=== PATIENT | female | born 1950 | race Caucasian/White ===

== ENCOUNTER 2018-03-28 09:53 | Outpatient (REF) | payer OTHER, SELFPAY ==
[2018-03-28 13:17] LABS: Anion Gap 8.1 mmol/L (3-11); BUN 13 mg/dL (7-18); CO2 30.9 mmol/L (21.0-32.0); Calcium 9.4 mg/dL (8.5-10.1); Chloride 102 mmol/L (98-107); Cholesterol 214 mg/dL (50-200); Glucose 91 mg/dL (70-100); HDL Cholesterol 54 mg/dL (40-60); LDL CHOLESTEROL 142 mg/dL (<100); Sodium 141 mmol/L (136-145); TSH (W/Ref FT4) 5.32 uIU/mL (0.358-3.74); Triglyceride 82 mg/dL (30-150)
[2018-03-28 13:48] LABS: FREE T4 1.07 ng/dL (0.76-1.46)
== END 2018-03-28 10:13 ==
LOC: NCHCN 09:53
PROVIDERS: PCP Family Medicine; Visit Provider Nurse Practitioner Family
DX: R03.0 Elevated blood-pressure reading, without diagnosis of hypertension (principal); E78.5 Hyperlipidemia, unspecified; E03.9 Hypothyroidism, unspecified
CPT/HCPCS: 80048; 80061; 83721; 84439; 84443

== ENCOUNTER 2018-04-16 01:27 | Outpatient (CLI) | payer OTHER, SELFPAY ==
--- NOTE | 2018-04-16 07:50 | DI.MAMMO_ITS ---
SYMPTOMS/DIAGNOSIS: SCREENING, Z12.31 MAMMOGRAMS: Mammograms were interpreted according to the usual protocol including computer analysis with CAD system, tomosynthesis and C view imaging. Comparison is with the prior examinations. No suspicious masses or microcalcifications are seen. There are surgical clips again seen in the left breast. The skin and axillae are unremarkable. IMPRESSION: No evidence for malignancy. Yearly mammography is recommended. Category 1. Breast density B. MQSA ASSESSMENT OF FINDINGS: Negative. Category 1. Patient will receive a letter notifying them of these results. BI-RADS category B. There are scattered areas of fibroglandular density.
== END 2018-04-16 01:47 ==
PROVIDERS: PCP Family Medicine; Visit Provider Nurse Practitioner Family
DX: Z12.31 Encounter for screening mammogram for malignant neoplasm of breast (principal)
CPT/HCPCS: 77063; 77067

== ENCOUNTER 2018-08-27 08:36 | Outpatient (REF) | payer OTHER, SELFPAY ==
[2018-08-27 12:42] LABS: Abs Immature Grans 0.02 k/cumm (0.0-0.09); Absolute Basophil Count 0.03 k/cumm (0.0-0.2); Absolute Lymphocyte Count 1.76 k/cumm (1.2-3.4); Absolute Monocyte Count 0.61 k/cumm (0.11-0.7); Absolute Neutrophil Count 2.71 k/cumm (1.2-6.7); Basophils % 0.6; Eosinophils % 3.8; HCT 41.7 % (36.0-46.0); Immature Grans % 0.4; Mean Corp. HGB Concentration 33.6 g/dL (32.0-36.0); Mean Corpuscular Hemoglobin 28.6 pg (27.0-33.0); Mean Corpuscular Volume 85.1 fL (80-95); Mean Platelet Volume 9.6 fL (8.0-11.0); Monocytes % 11.4; Neutrophils % 50.8; Platelet Count 250 x1000/uL (130-400); RBC Distribution Width 13.8 % (11.7-14.6); White Blood Cell Count 5.33 k/cumm (4.4-10.8)
[2018-08-27 13:19] LABS: TSH (W/Ref FT4) 4.96 uIU/mL (0.358-3.74)
[2018-08-27 13:45] LABS: FREE T4 0.97 ng/dL (0.76-1.46)
== END 2018-08-27 08:56 ==
LOC: NCHCN 08:36
PROVIDERS: PCP Family Medicine; Visit Provider Nurse Practitioner Family
DX: E03.9 Hypothyroidism, unspecified (principal)
CPT/HCPCS: 84439; 84443; 85025

== ENCOUNTER 2018-09-03 08:39 | Outpatient (REF) | payer OTHER, SELFPAY ==
[2018-09-04 09:56] LABS: Hepatitis C Ab w Rflx HCV PCR Negative (NEGAT)
== END 2018-09-03 08:59 ==
LOC: NCHCN 08:39
PROVIDERS: PCP Nurse Practitioner Family; Visit Provider Nurse Practitioner Family
DX: E78.5 Hyperlipidemia, unspecified (principal); F41.8 Other specified anxiety disorders; R53.83 Other fatigue; D32.9 Benign neoplasm of meninges, unspecified; E66.3 Overweight; Z11.59 Encounter for screening for other viral diseases
CPT/HCPCS: 86803

== ENCOUNTER 2018-12-01 09:41 | Outpatient (REF) | payer OTHER, SELFPAY ==
[2018-12-01 14:13] LABS: TSH (W/Ref FT4) 6.69 uIU/mL (0.36-3.74)
[2018-12-01 14:39] LABS: FREE T4 0.83 ng/dL (0.76-1.46)
== END 2018-12-01 10:01 ==
LOC: NCHCN 09:41
PROVIDERS: PCP Nurse Practitioner Family; Visit Provider Nurse Practitioner Family
DX: E03.9 Hypothyroidism, unspecified (principal)
CPT/HCPCS: 84439; 84443

== ENCOUNTER 2019-05-11 16:47 | Outpatient (REF) | payer OTHER, SELFPAY ==
[2019-05-11 21:45] LABS: TSH (W/Ref FT4) 2.98 uIU/mL (0.36-3.74)
[2019-05-11 22:17] LABS: Calculated LDL 145 mg/dL; Cholesterol 220 mg/dL (<200); HDL Cholesterol 55 mg/dL (40-60); Triglyceride 103 mg/dL (<150)
== END 2019-05-11 17:07 ==
LOC: NCHCN 16:47
PROVIDERS: PCP Nurse Practitioner Family; Visit Provider Nurse Practitioner Family
DX: E78.5 Hyperlipidemia, unspecified (principal); E03.9 Hypothyroidism, unspecified; R53.83 Other fatigue; R55 Syncope and collapse; F41.8 Other specified anxiety disorders; R42 Dizziness and giddiness
CPT/HCPCS: 80061; 84443

== ENCOUNTER 2019-05-26 01:04 | Outpatient (CLI) | payer OTHER, SELFPAY ==
--- NOTE | 2019-05-26 12:41 | DI.MAMMO_ITS ---
EXAM: MAMMO SCREENING CLINICAL HISTORY: SCREENING Z12.31 TECHNIQUE: Mammograms were interpreted according to the usual protocol including computer analysis w [employer] CAD system, tomosynthesis and C-view imaging. FINDINGS: The breasts are of moderate density with fairly symmetrical distribution of fibroglandular tissue. N o dominant mass or clumped microcalcification is identified in either breast. Current examination is compared with previous examinations including April 2018 and there has been no gross interval angie nge in appearance in comparison with the previous studies. IMPRESSION: No specific evidence of malignancy at this time. Routine screening examinations are suggested at year ly intervals due to the family history of breast carcinoma. Category 1. Breast density, category B. BI-RADS Cat 1 - Negative. Breast Density - Category B - Scattered areas of fibroglandular density.
== END 2019-05-26 01:24 ==
PROVIDERS: PCP Nurse Practitioner Family; Visit Provider Nurse Practitioner Family
DX: Z12.31 Encounter for screening mammogram for malignant neoplasm of breast (principal); Z80.3 Family history of malignant neoplasm of breast
CPT/HCPCS: 77063; 77067

== ENCOUNTER 2019-12-29 00:27 | Outpatient (CLI) | payer OTHER, SELFPAY ==
--- NOTE | 2019-12-29 | DI.DEXA_ITS ---
EXAM: XR DEXA BONE DENSITY W/WO NICK CLINICAL HISTORY: OSTEOPENIA,M85.80 TECHNIQUE: COMPARISON: No exams were available for comparison FINDINGS: DEXA scan was performed according to the usual protocol. Please see the accompanying data sheets. Findings for left hip scanning are T-score -2.0 with left femoral neck T-score -2.1. Prior study of December 2014 showed left hip T-score -1.8. Lumbar spine scanning shows T-score -0.8, prior study of December 2014 showed lumbar T-score -1.0. Findings for left forearm scanning are T-score -2.1, prior study showed T-score -0.9. IMPRESSION: Findings consistent with osteopenia according to the WHO criteria. Please note that the lateral vert ebral scanogram shows no evidence of a vertebral compression fracture. RADIATION DOSE DELIVERED: Total DLP
== END 2019-12-29 00:47 ==
PROVIDERS: PCP Nurse Practitioner Family; Visit Provider Nurse Practitioner Family
DX: M85.89 Other specified disorders of bone density and structure, multiple sites (principal)
CPT/HCPCS: 77080

== ENCOUNTER 2020-10-12 01:36 | Outpatient (CLI) | payer OTHER, SELFPAY ==
--- NOTE | 2020-10-12 | DI.MAMMO_ITS ---
Exam(s) MAMMO SCREENING EXAM: MAMMO SCREENING CLINICAL HISTORY: SCREENING, Z12.31 TECHNIQUE: Mammograms were interpreted according to the usual protocol including computer analysis w [employer] CAD system, tomosynthesis and C-view imaging. COMPARISON: 2010 through 2019 FINDINGS: The breasts are composed of scattered fibroglandular densities, Breast Density category B. No suspicious masses or suspicious microcalcifications are seen. Surgical clips and mild scarring ar e again noted in the left breast related to remote biopsy. No skin thickening or abnormal axillary lymph nodes are seen. There has been no significant change from prior exams. IMPRESSION: BI-RADS Cat 2 - Benign Findings Yearly screening mammography is recommended. Breast Density - Category B, scattered fibroglandular densities. A negative radiographic report should not delay biopsy if a dominant or clinically suspicious mass is present. Up to ten percent of cancers are not identified on mammography. A negative report may reinforce clinical impression. Adenosis and dense breasts may obscure an underlying neoplasm. False positive reports average 6 to 10%. Patient will receive a letter notifying them of these results.
== END 2020-10-12 01:56 ==
PROVIDERS: PCP Nurse Practitioner Family; Visit Provider Nurse Practitioner Family
DX: Z12.31 Encounter for screening mammogram for malignant neoplasm of breast (principal)
CPT/HCPCS: 77063; 77067

== ENCOUNTER 2021-03-02 14:54 | Outpatient (REF) | payer MEDICARE, SELFPAY ==
[2021-03-02 22:01] LABS: Anion Gap 7.4 mmol/L (3-11); BUN 21 mg/dL (7-18); CO2 28.6 mmol/L (21.0-32.0); CREATININE 0.8 mg/dL (0.55-1.02); Calcium 9.5 mg/dL (8.5-10.1); Chloride 104 mmol/L (98-107); Glucose 109 mg/dL (74-106); Potassium 4.3 mmol/L (3.5-5.1); Sodium 140 mmol/L (136-145)
== END 2021-03-02 14:55 | disposition home or self-care (01) ==
LOC: NCHCN 14:54
PROVIDERS: PCP Nurse Practitioner Family; Visit Provider Nurse Practitioner Family
DX: I10 Essential (primary) hypertension (principal); E78.5 Hyperlipidemia, unspecified; E03.9 Hypothyroidism, unspecified; R53.83 Other fatigue
CPT/HCPCS: 80048

== ENCOUNTER 2021-03-23 09:35 | Outpatient (REF) | payer MEDICARE, SELFPAY ==
[2021-03-23 17:01] LABS: Hemoglobin A1C 4.9 % (<5.7)
== END 2021-03-23 09:36 | disposition home or self-care (01) ==
LOC: NCHCN 09:35
PROVIDERS: PCP Nurse Practitioner Family; Visit Provider Nurse Practitioner Family
DX: R53.83 Other fatigue (principal); E66.3 Overweight
CPT/HCPCS: 83036

== ENCOUNTER 2021-04-10 17:14 | Outpatient (REF) | payer MEDICARE, SELFPAY ==
[2021-04-10 15:34] LABS: Abs Immature Grans 0.04 10^3/uL (0.0-0.06); Absolute Basophil Count 0.04 10^3/uL (0.0-0.2); Absolute Eosinophil Count 0.24 10^3/uL (0.0-0.7); Absolute Lymphocyte Count 1.95 10^3/uL (1.2-3.4); Absolute Monocyte Count 0.58 10^3/uL (0.1-0.8); Absolute Neutrophil Count 3.93 10^3/uL (1.2-6.7); Basophils % 0.6; Eosinophils % 3.5; HCT 40.6 % (36.0-46.0); HGB 13.4 g/dL (11.2-15.7); Immature Grans % 0.6; Lymphocytes % 28.8; MCH 27.9 pg (27.0-33.0); MCV 84.6 fL (80-95); MPV 10.1 fL (8.0-11.0); Monocytes % 8.6; Neutrophils % 57.9; Nucleated RBC 0 %; Platelet Count 280 10^3/uL (130-400); RDW 12.7 % (11.7-14.6); RDW-SD 38.7 fL; WBC 6.78 10^3/uL (4.4-10.8)
[2021-04-10 16:04] LABS: Iron 101 ug/dL (50-170); Total Iron Binding Capacity 381 ug/dL (250-450); Transferrin Sat 27 % (15-50)
[2021-04-10 16:19] LABS: Anion Gap 8.5 mmol/L (3-11); BUN 18 mg/dL (7-18); CO2 28.5 mmol/L (21.0-32.0); CREATININE 0.7 mg/dL (0.55-1.02); Calcium 9.6 mg/dL (8.5-10.1); Chloride 101 mmol/L (98-107); Ferritin 37 ng/mL (8-252); Glucose 84 mg/dL (74-106); Magnesium 2.3 mg/dL (1.8-2.4); Potassium 4.3 mmol/L (3.5-5.1); Sodium 138 mmol/L (136-145); TSH (W/Ref FT4) 5.45 uIU/mL (0.36-3.74)
[2021-04-10 16:40] LABS: FREE T4 0.97 ng/dL (0.76-1.46)
== END 2021-04-10 17:15 | disposition home or self-care (01) ==
LOC: NCHCN 17:14
PROVIDERS: PCP Nurse Practitioner Family; Visit Provider Nurse Practitioner Family
DX: R55 Syncope and collapse (principal); E03.9 Hypothyroidism, unspecified; I10 Essential (primary) hypertension
CPT/HCPCS: 80048; 82728; 83540; 83550; 83735; 84439; 84443; 85025

== ENCOUNTER 2021-04-11 00:54 | Outpatient (CLI) | payer MEDICARE, SELFPAY ==
--- NOTE | 2021-05-01 09:29 | W.CARDEVENT ---
Date of service: 05/01/21 Time of Service: 09:29 Cardiac Event Recorder Referring Provider:: Crystal Howell Indications:: Syncope Cardiac Event Note: This is a 14-day ekg monitor tech ordered for syncope Predominant rhythm was sinus with an average heart rate of 70, minimum was 48, maximum 130 There were no ventricular dysrhythmias There were very rare atrial premature beats A total of 7 self-limited atrial runs occurred. The longest of these was 7 beats in duration. These were asymptomatic There was no atrial fibrillation, no high-grade AV block, no pauses greater than 3 seconds Patient symptoms corresponded to sinus rhythm, heart rates between 60 and 85 bpm
== END 2021-04-11 00:55 | disposition home or self-care (01) ==
LOC: RT 00:54
PROVIDERS: PCP Nurse Practitioner Family; Visit Provider Nurse Practitioner Family
DX: R55 Syncope and collapse (principal)
CPT/HCPCS: 93246

== ENCOUNTER 2021-05-01 09:29 | Outpatient (CLI) | payer MEDICARE, SELFPAY | END 2021-05-01 09:30 | LOC: CARDO 05-02 10:48 | PROVIDERS: PCP Nurse Practitioner Family; Referring Provider Nurse Practitioner Family; Visit Provider Internal Medicine Cardiovascular Disease | DX: R55 Syncope and collapse (principal); I49.1 Atrial premature depolarization | CPT/HCPCS: 93248 ==

== ENCOUNTER 2022-01-03 14:38 | Outpatient (REF) | payer MEDICARE, SELFPAY | END 2022-01-03 14:39 | disposition home or self-care (01) | LOC: NCHCN 14:38 | PROVIDERS: PCP Nurse Practitioner Family; Visit Provider Family Medicine | DX: N39.0 Urinary tract infection, site not specified (principal) | CPT/HCPCS: 87077; 87086; 87186 ==

== ENCOUNTER 2022-10-27 14:01 | Outpatient (REF) | payer MEDICARE, SELFPAY ==
--- OUTSIDE RECORDS SUMMARY | 2022-10-27 14:28 | XMS_ITS | Continuity of Care Document ---
Author Name Unknown Organization [facility] Address [address] [place] [id number] Care Team Providers Care [employer] Dean Name Role Phone EUNICE RODRIGUEZ Primary Care Physician Encounter [facility]DC FIN NBR [id number] Date(s): 03/21/22 - 03/21/[address] [address]- [place] Discharge Disposition: Home or Self Care Attending Physician: EUNICE RODRIGUEZ Admitting Physician: EUNICE RODRIGUEZ Results Radiology Reports * Exam Date Time Procedure Performing Provider Status 03/21/22 4:05 PM MG Mammo Screening Bilateral Martine Benítez; Teresa (Verified) Notes: (MG Mammo Screening Bilateral) Reason For Exam: SCREENING MG Mammo Screening Bilateral EXAM DESCRIPTION: MG Mammo Screening Bilateral 03/21/2022 INDICATION: SCREENING RISK FACTOR: The patient may be at increased breast cancer risk based on Eleni risk model COMPARISON: None available BREAST DENSITY: There are scattered areas of fibroglandular density. FINDINGS: MLO and CC views were performed with digital breast tomosynthesis. Images were reviewed using computer aided detection. No asymmetry, architectural distortion or suspicious grouping of calcifications to suggest malignancy in either breast. ASSESSMENT: No mammographic evidence of malignancy. Negative. BI-RADS category 1. RECOMMENDATION: Screening mammography in 1 year JOB #: [id number] Final Signed by: Red Padilla MD Signed (Electronic Signature): 03/21/2022 4:11 pm MG Breast - bilateral Screening * Red Padilla MD: VERIFY, VERIFY Event Display: Report EXAM DESCRIPTION: MG Mammo Screening Bilateral 03/21/2022 INDICATION: SCREENING RISK FACTOR: The patient may be at increased breast cancer risk based on Eleni risk model COMPARISON: None available BREAST DENSITY: There are scattered areas of fibroglandular density. FINDINGS: MLO and CC views were performed with digital breast tomosynthesis. Images were reviewed using computer aided detection. No asymmetry, architectural distortion or suspicious grouping of calcifications to suggest malignancy in either breast. ASSESSMENT: No mammographic evidence of malignancy. Negative. BI-RADS category 1. RECOMMENDATION: Screening mammography in 1 year JOB #: [id number] Final Signed by: Red Padilla MD Signed (Electronic Signature): 03/21/2022 4:11 pm Patient Care team information Personnel Name: JENNIFER EUNICE Address: Address: [address] [place] [id number]
[2022-10-27 15:47] LABS: Bacteria Few HPF (Negative); Casts Negative LPF (Negative); Crystals Negative HPF (Negative); Epithelial Cells Negative HPF (Negative); Mucus Negative (Negative); Other Cells Negative (Negative); RBC 0-2 HPF (0-2); WBC 20-50 HPF (0-5)
[2022-10-27 15:48] LABS: C & S Indicated? C&S Done As Ordered
== END 2022-10-27 14:02 | disposition home or self-care (01) ==
LOC: LBN 14:01
PROVIDERS: PCP Nurse Practitioner Family; Visit Provider Physician Assistant Medical
DX: R35.0 Frequency of micturition (principal)
CPT/HCPCS: 87077; 81015; 87086; 87186

== ENCOUNTER 2022-11-28 17:59 | Outpatient (REF) | payer MEDICARE, SELFPAY ==
[2022-11-28 21:14] LABS: HCT 40.7 % (36.0-46.0); HGB 13.8 g/dL (11.2-15.7); MCHC 33.9 % (32.0-36.0); MCV 83 fL (80-95); MPV 9.5 fL (8.0-11.0); Platelet Count 185 10^3/uL (130-400); RBC 4.92 10^6/uL (3.93-5.22); RDW 13.3 % (11.7-14.6); RDW-SD 40.2 fL; WBC 3.43 10^3/uL (4.4-10.8)
[2022-11-30 11:52] LABS: Lyme Ab w Rflx to Lyme Confirm Negative (Negative)
[2022-12-02 14:19] LABS: B. miyamotoi PCR Negative (Negative); Babesia divergens/MO-1 Negative (Negative); Babesia duncani Negative (Negative); Babesia microti Negative (Negative); Ehrlichia chaffeensis Negative (Negative); Ehrlichia ewingii/canis Negative (Negative); Ehrlichia muris eauclairensis Negative (Negative)
[2022-12-02 14:38] LABS: Anaplasma phagocytophilum Positive (Negative)
== END 2022-11-28 18:00 | disposition home or self-care (01) ==
LOC: NCHCN 17:59
PROVIDERS: PCP Nurse Practitioner Family; Visit Provider Family Medicine
DX: R53.81 Other malaise (principal)
CPT/HCPCS: 85027; 87798; 86618

== ENCOUNTER 2023-04-23 18:55 | Outpatient (REF) | payer MEDICARE, SELFPAY ==
[2023-04-23 14:43] LABS: ESR 5 mm/hr (0-30); HCT 41.1 % (36.0-46.0); HGB 13.5 g/dL (11.2-15.7); MCH 27.8 pg (27.0-33.0); MCHC 32.8 % (32.0-36.0); MCV 85 fL (80-95); MPV 9.7 fL (8.0-11.0); Platelet Count 264 10^3/uL (130-400); RBC 4.85 10^6/uL (3.93-5.22); RDW 13.4 % (11.7-14.6); RDW-SD 41.1 fL; WBC 6.78 10^3/uL (4.4-10.8)
[2023-04-23 14:59] LABS: ALT 29 U/L (14-59); AST 27 U/L (15-37); Albumin 3.9 g/dL (3.4-5.0); Alkaline Phosphatase 85 U/L (46-116); Anion Gap 5.2 mmol/L (3-11); BUN 19 mg/dL (7-18); Bilirubin, Total 0.4 mg/dL (0.2-1.0); C-Reactive Protein 0.17 mg/dL (0.0-0.3); CO2 31.8 mmol/L (21.0-32.0); CREATININE 0.9 mg/dL (0.55-1.02); Calcium 9.7 mg/dL (8.5-10.1); Calculated LDL 179 mg/dL (<100); Chloride 105 mmol/L (98-107); Cholesterol 261 mg/dL (<200); Estimated GFR 66.67 (mL/min/1.73m2); Glucose 98 mg/dL (74-106); HDL Cholesterol 66 mg/dL (40-60); Sodium 142 mmol/L (136-145); TSH (W/Ref FT4) 6.06 uIU/mL (0.36-3.74); Total Protein 7.6 g/dL (6.4-8.2); Triglyceride 80 mg/dL (<150)
[2023-04-23 15:13] LABS: Vitamin D 25 Total 39.2 ng/mL (30-100)
[2023-04-23 15:34] LABS: FREE T4 0.89 ng/dL (0.76-1.46)
== END 2023-04-23 18:56 | disposition home or self-care (01) ==
LOC: NCHCN 18:55
PROVIDERS: PCP Nurse Practitioner Family; Visit Provider Family Medicine
DX: E78.5 Hyperlipidemia, unspecified (principal); R53.83 Other fatigue; E03.9 Hypothyroidism, unspecified; R03.0 Elevated blood-pressure reading, without diagnosis of hypertension; M85.88 Other specified disorders of bone density and structure, other site; R79.89 Other specified abnormal findings of blood chemistry
CPT/HCPCS: 80053; 80061; 82306; 85027; 85652; 84439; 84443; 86140

== ENCOUNTER → 2023-05-17 02:37 | Outpatient (CLI) | payer MEDICARE, SELFPAY ==
--- NOTE | 2023-05-17 | DI.MAMMO_ITS ---
Exam(s) MAMMO SCREENING EXAM: MAMMO SCREENING CLINICAL HISTORY: SCREENING,Z12.31 TECHNIQUE: Bilateral full field digital CC and MLO mammographic images were obtained with 3D tomosyn thesis and utilizing computer aided detection (CAD). COMPARISON: Available for comparison. FINDINGS: Masses/Architectural Distortion: None seen. Biopsy clips are seen in the left breast. Microcalcifications: No suspicious pleomorphic-type are seen. Skin Thickening/Nipple Retraction: None. IMPRESSION: 1. No significant interval change with no specific features of malignancy noted. 2. Unless there is more urgent need, screening mammography is recommended, as per [employer] guidelines. BI-RADS Category 2 - Benign Findings Breast Density - Category B - Scattered areas of fibroglandular density Breast density category C or D implies that the patient has dense breast tissue. Dense breast tissue is very common and is not abnormal but dense breast tissue can make it harder to find cancer on a ma mmogram. Also, dense breast tissue may increase their breast cancer risk. This information about the result of the mammogram report was provided to the patient to raise their awareness. Use this report when you speak with the patient about their risks for breast cancer, which includes their family hist ory. At that time, you may recommend for more screening tests (Ultrasound or MRI) as they might be us eful based on their risk. A negative radiographic report should not delay biopsy if a dominant or clinically suspicious mass is present. Up to ten percent of cancers are not identified on mammography. A negative report may reinforce clinical impression. Adenosis and dense breasts may obscure an underlying neoplasm. False positive reports average 6 to 10%. Patient will receive a letter notifying them of these results.
== END ==
PROVIDERS: PCP Nurse Practitioner Family; Visit Provider Family Medicine
DX: Z12.31 Encounter for screening mammogram for malignant neoplasm of breast (principal)
CPT/HCPCS: 77063; 77067

== ENCOUNTER 2023-11-07 16:17 | Outpatient (REF) | payer MEDICARE, SELFPAY ==
[2023-11-07 16:41] LABS: Bacteria Moderate HPF (Negative); C & S Indicated? C&S Done As Ordered; Casts 0-2 Fine Granular LPF (Negative); Crystals Negative HPF (Negative); Epithelial Cells Few HPF (Negative); Mucus Negative (Negative); Other Cells Rare Renal (Negative); RBC 20-50 HPF (0-2); WBC 20-50 HPF (0-5)
== END 2023-11-07 16:18 | disposition home or self-care (01) ==
LOC: LBN 16:17
PROVIDERS: PCP Nurse Practitioner Family; Visit Provider Physician Assistant Medical
DX: R30.0 Dysuria (principal); N39.0 Urinary tract infection, site not specified; B95.2 Enterococcus as the cause of diseases classified elsewhere
CPT/HCPCS: 87077; 81015; 87086; 87186

== ENCOUNTER 2023-12-30 18:34 | Outpatient (REF) | payer MEDICARE, SELFPAY ==
[2023-12-30 16:23] LABS: Anion Gap 8.4 mmol/L (3-11); BUN 15 mg/dL (7-18); CO2 29.6 mmol/L (21.0-32.0); CREATININE 0.8 mg/dL (0.55-1.02); Calculated LDL 180 mg/dL (<100); Chloride 102 mmol/L (98-107); Cholesterol 271 mg/dL (<200); Estimated GFR 76.79 (mL/min/1.73m2); Glucose 99 mg/dL (74-106); HDL Cholesterol 63 mg/dL (40-60); Potassium 4.1 mmol/L (3.5-5.1); Sodium 140 mmol/L (136-145); TSH (W/Ref FT4) 4.85 uIU/mL (0.36-3.74); Triglyceride 140 mg/dL (<150)
[2023-12-30 17:00] LABS: FREE T4 1.25 ng/dL (0.76-1.46)
--- OUTSIDE RECORDS SUMMARY | 2023-12-30 18:40 | XMS_ITS | Clinical Summary ---
Author Organization [facility] Address [address] [place] [address] Care Team Providers Care [employer] Name Role Phone Crystal Howell APRN Primary Care Provider [phone] Allergies Active Allergy Reactions Criticality Noted Date Comments Iodine And Iodide Containing Products 08/23/2016 Nitrofurantoin Monohyd/M-Cryst 08/23 Penicillins Hives 08/23/2016 Medications Medication Sig Dispensed Refills Start Date End Date Status DIAZepam (VALIUM) 5 mg tablet Take 1 tablet by mouth. 1 Tab 08/23/2016 Active Additional Information Patient not taking.Reported on 08/30/2016 methylPREDNISolone (MEDROL) 32 mg tablet Take one pill [address] and one pill 1.[address] 2 Tab 01/11/2017 Active Additional Information Patient not taking.Reported on 04/19/2017 DIAZepam (VALIUM) 5 mg tablet Take 1 tab 45 min prior to the procedure and repeat immediately before if needed 2 Tab 02/06/2017 Active Additional Information Patient not taking.Reported on 04/19/2017 levETIRAcetam (KEPPRA) 250 mg tablet Take 250 mg by mouth daily. Active Active Problems Problem Noted Date Diagnosed Date Meningioma (HCC-CMS) 01/15/2017 Surgical History Surgery Date Site/Laterality Comments MOHS SURGERY 08/23/2016 Left Melanoma in situ, left cheek Medical History Medical History Date Comments Melanoma (HCC-CMS) 08/23/2016 Melanoma in s itu, left cheek, s/p Mohs Social History Tobacco Use Types Packs/Day Years Used Date Smoking Tobacco: Never Smokeless Tobacco: Never Interpersonal Safety Answer Date Record ed Physically Hurt Never 12/08/2019 Verbally Threaten Not on file 12/08/2019 Sex and Gender Information Value Date Recorded Sex Assigned at Not on file Gender Identity Not on file Sexual Orientation Not on file Obstetrics History Last Filed Vital Signs Vital Sign Reading Time Taken Comments Blood Pressure 136/88 01/15/2017 1236 EDT Pulse 80 01/15/2017 1236 EDT Temperature 36.2 ??C (97.2 ??F) 08/23/2016 0803 EDT Respiratory Rate 12 01/15/2017 1236 EDT Oxygen Saturation - - Inhaled Oxygen Concentration - - Weight 70.3 kg (155 lb) 01/15/2017 1236 EDT Height 168.9 cm (5' 6.5) 01/15/2017 1236 EDT Body Mass Index 24.64 01/15/2017 1236 EDT Plan of Treatment Health Maintenance Due Date Last Done Comments Hepatitis C Screen 1950 RSV Immunization ( o r 60+ Years) (1 - 1-dose 60+ series) 2008 Fall Risk Screening 2013 COVID-19 Vaccine ( season) 2023 Care Teams [employer] Relationship Specialty Start Date End Date Crystal Howell APRN [address] [place] [address] PCP - General 07/18/17
--- OUTSIDE RECORDS SUMMARY | 2023-12-30 18:40 | XMS_ITS | Encounter Summary ---
Author Organization [facility] Address [address] [place] [address] Care Team Providers Care [employer] Name Role Phone Mariam Hernandez MD Primary Care Provider [phone] Reason for Visit * Reason Onset Date Comments Wound Care 04/19/2017 wound instructio ns/suture removal kit Encounter Details Date Type Department Care Team (Late st Contact Info) Description 04/19/2017 Telephone [facility] Dermatology 3rd Floor [facility] [address] [place], [place] [id number] Mervat Melo MD PhD [address] [facility], [facility] [address] [place] [address] Wound Care (wound instructions/suture removal kit) Social History Tobacco Use Types Packs/Day Years Used Date Smoking Tobacco: Never Smokeless Tobacco: Never Sex and Gender Information Value Date Recorded Sex Assigned at Not on file Gender Identity Not on file Sexual Orientation Not on file documented as of this encounter Functional Status Functional Status Response Date of Assess ment Because of a physical, menta l, or emotional condition, does this person have difficulty doing errands alone such as visiting a doctor's office or shopping? No 01/15/2017 Cognitive Status Response Date of Assessm ent Because of a physical, menta l, or emotional condition, does this person have serious difficulty concentrating, remembering, or making decisions? No 01/15/2017 documented as of this encounter Miscellaneous Notes * Telephone Encounter - Leana Pendleton RN - 04/22/2017 0916 EST Patient called Patient is s/p punch biopsy, left flank on 04/19/[address] Melo Patient states she didn't receive suture removal kit at last visit Offered suture removal appointment. Patient declined - states she lives 3 hours away Advised contacting PCP office for suture removal - patient declined due to doesn't want to pay another co-pay States will have friend, who has suture removal experience from health care setting, remove sutures. LEANA PENDLETON RN 04/22/2017 9:20 * Telephone Encounter - Anali Holder RN - 04/22/2017 0901 EST Status post punch biopsy of neoplasm of unspecified nature 04/19/17 by Mervat Melo MD Left a message for patient to call back ANALI HOLDER RN 04/22/2017 9:03 * Telephone Encounter - Danica Padron - 04/22/2017 0854 EST Patient has questions about how these can come out. Please advise. * Telephone Encounter - Rahel Werner - 04/19/2017 145 EST Patient has a question as to when the stitches come out. Patient is requesting suture removal kit be mailed to her. Please call. documented in this encounter Plan of Treatment Not on file documented as of this encounter Visit Diagnoses Not on filedocumented in this encounter Care Teams [employer] Relationship Specialty Start Date End Date Mariam Hernandez MD [address] [place] [address] PCP - General 01/04/17 07/17/17 documented as of this encounter
--- OUTSIDE RECORDS SUMMARY | 2023-12-30 18:40 | XMS_ITS | Encounter Summary ---
Author Organization [facility] Address [address] [place] [address] Care Team Providers Care Photogrammetric Tech Name Role Phone Crystal Howell APRN Primary Care Provider [phone] Encounter Details Date Type Department Care Team (Late st Contact Info) Description 02/18/2020 Results Only Imaging [facility] Card[facility] Clinic [address] [place] [address] Natalie Lennon, URANIUM PROCESSING SUPERVISOR [address] [place] [address] Social History Tobacco Use Types Packs/Day Years [...] No 01/15/2017 documented as of this encounter Plan of Treatment Not on file documented as of this encounter Procedures Procedure Name Priority Date/Time Associated Diagnosis Comments EXERCISE TOLERANCE TEST (ETT) 02/18/2020 12:00 EDT documented in this encounter Results * EXERCISE TOLERANCE TEST (ETT) (02/18/2020 12:00 EDT) Anatomical Region Laterality Modality Nuclear Stress 02/18/2020 12:0 0 EDT Narrative 02/18/2020 14:44 EDT *[facility]* *[facility]* [address] [place] [address] Stress Electrocardiography Alex protocol Date of study: ??02/18/2020 *PATIENT PRESENTATION* Height: ? 167.6cm (66in) Blood Pressure: Weight: ? 72.7kg (160lb) BSA: ?1.85m^2 Ordering physician: Natalie Lennon Impressions: - Negative stress test after maximal exercise. - Hypertensive throughout. Summary: 1. Stress ECG conclusions: The stress ECG is negative. Armijo treadmill ?? score: 6. This score predicts a low risk of cardiac events. 2. Stress: The target heart rate was achieved. The heart rate response ?? to stress is normal. There is resting hypertension with an ?? appropriate response to stress. The patient experienced no chest pain ?? during stress. Exercise capacity is fair. Recommendations: ??Medical management for HTN is recommended. Indication: ?? CHEST PAIN, Appropriate Use Criteria: A (Appropriate). History: ??69 Y.O. Female with c/o of having an episode of indigestion 4 days ago. Went to PCP with c/o chest pain radiating to her jaw after eating out at a restaurant. Pain was 6/10 lasting around 10min. No nausea, diaphoresis. States she does get indigestion at night after eating a big meal and she takes tums with relief. States she had negative nuc med stress test many years ago at [facility] in [place]. Does not remember why the test was done. States she does not have a hx of HTN but arrives with resting BP 204/100. Allergies: IV contrast-Iodine, Macrobid, PCN Meds: Takes no home medications per patient. Protocol: ??Alex protocol. Baseline ECG: ??NSR HR 75. Normal ECG. Stress protocol: + +---+ + !Stage ?!HR !BP (mmHg) ?! + +---+ + !Baseline supine ?!75 !204/100 (135)! + +---+ + !Baseline standing ?!79 !189/97 (128) ! + +---+ + !Stage I; 1.7mph, 10degrees; 3 min ??!122!218/100 (139)! + +---+ + !Stage II; 2.5mph, 12degrees; 3 min !144!234/98 (143) ! + +---+ + !Stage III; 3.4mph, 14degrees; 3 min!148! ! + +---+ + !Peak stress ?!150! ! + +---+ + !Recovery; 1 min ?!135!244/95 (145) ! + +---+ + !Recovery; 3 min ?!102! ! + +---+ + !Recovery; 6 min ?!89 !174/94 (121) ! + +---+ + !Recovery; 9 min ?!84 ! ! + +---+ + !Recovery; 12 min ? !82 !183/97 (126) ! + +---+ + !Recovery; 15 min ? !82 ! ! + +---+ + * Stress results: ?? Maximal heart rate during stress was 150bpm (101% of maximal predicted heart rate). The maximal predicted heart rate was 149bpm. The target heart rate was achieved. The heart rate response to stress is normal. There is resting hypertension with an appropriate response to stress. The rate-pressure product for the peak heart rate and blood pressure was 45363fw Hg/min. ??The patient experienced no chest pain during stress. ?? Exercise capacity is fair. Stress ECG: ??No ectopy noted No c/o chest pain Elevated BP prior to stress, NL BP response No ischemic changes noted. ??The stress ECG is negative. ?? Armijo treadmill score: 6. This score predicts a low risk of cardiac events. Study data: ??Blanco Byrnes MD supervised and was readily available during the procedure. This study was interpreted by [facility]. ??Study status: ??Routine. ??Consent: ??The risks, benefits, and alternatives to the procedure were explained to the patient and informed consent was obtained. ??Procedure: ??Initial setup. A baseline ECG was recorded. Surface ECG leads and manual cuff blood pressure measurements were monitored. Heart sounds: Normal. Lung sounds: Normal. Treadmill exercise testing was performed using the Alex protocol. The patient exercised for 6 min 6 sec, to protocol stage 2, to a maximal work rate of 7.2mets. Exercise was terminated due to moderate dyspnea and moderate fatigue. Study completion: ??The patient tolerated the procedure well and was discharged from the lab. ??Discharge: ??The patient left the laboratory in stable condition. ? Birthdate: ??Patient birthdate: 1950. ??Sex: Gender: female. ??Study date: ??Study date: 02/18/2020. Study time: 12:00 PM. Signature Documentation: ?? The Stress ECG portion of this study was interpreted by Blanco Byrnes MD. Electronically signed by Blanco Byrnes 02/18/2020 14:44 Procedure Note Blanco Byrnes MD - 02/18/2020 *[facility]* *[facility]* [address] [place] [address] Stress Electrocardiography Alex protocol Date of study: 02/18/2020 *PATIENT PRESENTATION* Height: 167.6cm (66in) Blood Pressure: Weight: 72.7kg (160lb) BSA: 1.85m^2 Ordering physician: Natalie Lennon Impressions: - Negative stress test after maximal exercise. - Hypertensive throughout. Summary: 1. Stress ECG conclusions: The stress ECG is negative. Armijo treadmill score: 6. This score predicts a low risk of cardiac events. 2. Stress: The target heart rate was achieved. The heart rate response to stress is normal. There is resting hypertension with an appropriate response to stress. The patient experienced no chest pain during stress. Exercise capacity is fair. Recommendations: Medical management for HTN is recommended. Indication: CHEST PAIN, Appropriate Use Criteria: A (Appropriate). History: 69 Y.O. Female with c/o of having an episode of indigestion 4 days ago. Went to PCP with c/o chest pain radiating to her jaw after eating out at a restaurant. Pain was 6/10 lasting around 10min. No nausea, diaphoresis. States she does get indigestion at night after eating a big meal and she takes tums with relief. States she had negative nuc med stress test many years ago at [facility] in [place]. Does not remember why the test was done. States she does not have a hx of HTN but arrives with resting BP 204/100. Allergies: IV contrast-Iodine, Macrobid, PCN Meds: Takes no home medications per patient. Protocol: Alex protocol. Baseline ECG: NSR HR 75. Normal ECG. Stress protocol: + +---+ + !Stage !HR !BP (mmHg) ! + +---+ + !Baseline supine !75 !204/100 (135)! + +---+ + !Baseline standing !79 !189/97 (128) ! + +---+ + !Stage I; 1.7mph, 10degrees; 3 min !122!218/100 (139)! + +---+ + !Stage II; 2.5mph, 12degrees; 3 min !144!234/98 (143) ! + +---+ + !Stage III; 3.4mph, 14degrees; 3 min!148! ! + +---+ + !Peak stress !150! ! + +---+ + !Recovery; 1 min !135!244/95 (145) ! + +---+ + !Recovery; 3 min !102! ! + +---+ + !Recovery; 6 min !89 !174/94 (121) ! + +---+ + !Recovery; 9 min !84 ! ! + +---+ + !Recovery; 12 min !82 !183/97 (126) ! + +---+ + !Recovery; 15 min !82 ! ! + +---+ + * Stress results: Maximal heart rate during stress was 150bpm (101% of maximal predicted heart rate). The maximal predicted heart rate was 149bpm. The target heart rate was achieved. The heart rate response to stress is normal. There is resting hypertension with an appropriate response to stress. The rate-pressure product for the peak heart rate and blood pressure was 44055qf Hg/min. The patient experienced no chest pain during stress. Exercise capacity is fair. Stress ECG: No ectopy noted No c/o chest pain Elevated BP prior to stress, NL BP response No ischemic changes noted. The stress ECG is negative. Armijo treadmill score: 6. This score predicts a low risk of cardiac events. Study data: Blanco Byrnes MD supervised and was readily available during the procedure. This study was interpreted by [facility]. Study status: Routine. Consent: The risks, benefits, and alternatives to the procedure were explained to the patient and informed consent was obtained. Procedure: Initial setup. A baseline ECG was recorded. Surface ECG leads and manual cuff blood pressure measurements were monitored. Heart sounds: Normal. Lung sounds: Normal. Treadmill exercise testing was performed using the Alex protocol. The patient exercised for 6 min 6 sec, to protocol stage 2, to a maximal work rate of 7.2mets. Exercise was terminated due to moderate dyspnea and moderate fatigue. Study completion: The patient tolerated the procedure well and was discharged from the lab. Discharge: The patient left the laboratory in stable condition. Birthdate: Patient birthdate: 1950. Sex: Gender: female. Study date: Study date: 02/18/2020. Study time: 12:00 PM. Signature Documentation: The Stress ECG portion of this study was interpreted by Blanco Byrnes MD. Electronically signed by Blanco Byrnes 02/18/2020 14:44 Natalie S Tatel URANIUM PROCESSING SUPERVISOR CARDIAC NM ORDERABLE S documented in this encounter Visit Diagnoses Not on filedocumented in this encounter Care Teams Photogrammetric Tech Relationship Specialty Start Date End Date Crystal Howell APRN [address] [place] [address] PCP - General 07/18/17 documented as of this encounter
--- OUTSIDE RECORDS SUMMARY | 2023-12-30 18:40 | XMS_ITS | Encounter Summary ---
Author Organization [facility] Address [address] [place] [address] Care Team Providers Care Alpine Guide Name Role Phone Garima Howellyn Canelo MOELLER Primary Care Provider [phone] Reason for Visit * Reason Comments Follow-up h/o MMIS Skin Exam FBSE Encounter Details Date Type Department Care Team (Late st Contact Info) Description 07/19/2017 15:20 EDT Office Visit [facility] Dermatology 3rd [address] [address] Mervat Melo MD PhD [address] [place] [address], [facility] [address] [place] [address] Sun-damaged skin (Primary Dx); History of melanoma; Scar; Multiple benign nevi Social History Tobacco Use Types Packs/Day Years [...] No 01/15/2017 documented as of this encounter Patient Instructions * Patient Instructions* Mervat Melo MD - 07/19/2017 15:20 EDT Wear sunscreen daily regardless of weather or activities (cloudy and yemi days). Recommended sunscreens: at least spf 30 For the environmentally friendly: [id number] For dry skin: Moses MODI UV Elements For ultra-sensitive skin: Vanicream free and clear sunscreen For Kids or ultrasensitive skin: Titanium dioxide and zinc oxide--Vanicream free and clear sunscreen, Stevie unscented or Blue Lizard Other: ColoreScience Sunforgettable powder, Solbar or BullFrog gel, Men Expert Hydra Energetic After Shave [place], Klenskin bar soap or body wash. For sprays: Do not inhale or get near an open flame. Even more important are hats and sun protective clothing with UPF. Sunprecautions, [place], J. Crew, Under [place] , O-Richi, ABG Accessories, Coolibar Sun umbrellas Other: Vitamins/supplements: -Heliocare -- Pills which provide some level of sunscreen -Niacinamide 500mg PO BID (aka nicotinamide) Izzy: UVimgix - UV Index Check skincancer.org and consumer reports for reliable information documented in this encounter Progress Notes * Soraya Rain - 07/19/2017 1520 EDT Review of Systems Constitutional: Negative for fatigue, fever and unexpected weight change. HENT: Negative for mouth sores. Eyes: Negative for pain. Respiratory: Negative for cough and shortness of breath. Cardiovascular: Negative for chest pain and palpitations. Gastrointestinal: Negative for abdominal pain, blood in stool, constipation, diarrhea, nausea and vomiting. Genitourinary: Negative for dysuria, frequency and hematuria. Musculoskeletal: Negative for myalgias, joint swelling, arthralgias and muscle stiffness in the morning. Skin: Negative for rash. Neurological: Negative for numbness and headaches. Endo/Heme/Allergies: Does not bruise/bleed easily. Psychiatric/Behavioral: Negative for sleep disturbance. The patient is not nervous/anxious. Soraya Rain 07/19/2017 15:07 * Mervat Melo MD - 07/19/2017 1520 EDT Dermatology Outpatient Visit Note Chief Complaint Patient presents with ??? Follow-up h/o MMIS ??? Skin Exam FBSE Dermatologic History: 1. 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 Dickerson is a 67 y.o. female who presents for follow up for melanoma in situ removed with Mohs in 08/2016. Imaging after a previous clinic visit did not find any lymphadnopathy but revealeda grade I meningioma which she had excised at [facility]. She is doing very well and has a follow upMRI planned. She denies any problems with her left cheek scar and is very good about sun protectionand avoidance. She would like a mole on her scalp examined to make sure it is ok. It is longstanding and asymptomatic. For full Medical, Surgical, Family, and Social histories, please see the History section of this encounter in the electronic chart which I have personally reviewed. For Review of Systems, Medications and Allergies, please see those sections of this encounter in the electronic chart which I have also reviewed. She has a current medication list which includes the following prescription(s): diazepam, diazepam,levetiracetam, and methylprednisolone. She is allergic to iv contrast [iodine and iodide containing products]; macrobid [nitrofurantoin monohyd/m-cryst]; and penicillins. OBJECTIVE VS: There were no vitals taken for this visit. Ms. Dickerson is healthy, well developed, well-nourished and in no acute distress female sitting on theexamination table with a normal affect. She is alert and oriented to person, place and time. She has Brewster type II skin. Cutaneous full body examination including the hair, scalp, face, eyelids, lips, neck, chest, back, abdomen, genitalia, all four extremities, hands, feet, digits and nails was performed.The examination was normal with the addition of the following comments: No palpable pre- or postauricular, occipital or cervical lymphadenopathy. -Left frontal and parietal scalp within hairline with linear supple well- approximated scar without edema or tenderness to palpation -scattered on the sun exposed areas are multiple even, light brown macules with either bland or regular pigment network on dermoscopy -left cheek is a well-healed linear supple scar without nodularity, repigmentation, edema or tenderness to palpation-dogear is present at superior margin. No dermatoscopic mace discoloration nor woodlamp exam pigment present in the vicinity. -Occipital scalp with soft skin colored ~6mm papule ASSESSMENT/PLAN History of melanoma in situ, left cheek and scar, sun-damaged skin -No clinical evidence of superficial reccurence. -The importance of sunscreen use, sun avoidance and self-examination was discussed, of which the patient showed a good understanding. Cont reg skin exams by a derm. Multiple benign nevi -occipital scalp. -The patient was reassured regarding the benign appearance of these lesions today. No further treatment is needed to the areas at this time. She will f/u in 6 months or in the interim should problems arise. Mervat Melo MD Dermatology [facility] documented in this encounter Plan of Treatment Not on file documented as of this encounter Visit Diagnoses Diagnosis Sun-damaged skin- Primary Other dermatitis due to solar radiation History of melanoma Personal history of malignant melanoma of skin Scar Scar condition and fibrosis of skin Multiple benign nevi Benign neoplasm of skin, site unspecified documented in this encounter Care Teams Alpine Guide Relationship Specialty Start Date End Date Crystal Howell APRN [address] [place] [address] PCP - General 07/18/17 documented as of this encounter
--- OUTSIDE RECORDS SUMMARY | 2023-12-30 18:40 | XMS_ITS | Encounter Summary ---
Author Organization [facility] Address [address] [place] [address] Care Team Providers Care Marketing Sales Manager Name Role Phone Crystal Howell APRN Primary Care Provider [phone] Encounter Details Date Type Department Care Team (Late st Contact Info) Description 11/29/2022 Lab Requisition [facility] Pathology & Laboratory Medicine - [facility] [address] [place] [address] Outr Resulting Lab, Provider Social History Tobacco Use Types Packs/Day Years [...] Procedure Name Priority Date/Time Associated Diagnosis Comments LYME AB Routine 11/28/2022 15:00 EDT documented in this encounter Results * LYME AB (11/28/2022 15:00 EDT) Lyme Ab Negative Negative 11/30/2022 11:45 EDT [facility] Blood VENOUS BLOOD / Unknown 11/28/2022 15:00 EDT 11/29/2022 18:19 EDT Provider Outr Resulting Lab IMMUNOLOGY A ND SEROLOGY ORDERABLES Performing Organization Address City/State/[facility] Co de Phone Number [facility] [address] [place] [address] documented in this encounter Visit Diagnoses Not on filedocumented in this encounter Care Teams Marketing Sales Manager Relationship Specialty Start Date End Date Crystal Howell APRN [address] [place] [address] PCP - General 07/18/17 documented as of this encounter
--- OUTSIDE RECORDS SUMMARY | 2023-12-30 18:40 | XMS_ITS | Referral Summary ---
Author Organization [facility] Address [address] [place] [address] Care Team Providers Care Monkey Keeper Name Role Phone Crystal Howell APRN Primary Care Provider [phone] Allergies Active Allergy Reactions Criticality Noted Date [...] Noted Date Diagnosed Date Meningioma (HCC-CMS) 01/15/2017 Social History Tobacco Use Types Packs/Day Years Used Date Smoking Tobacco: Never Smokeless Tobacco: Never Interpersonal Safety Answer Date Record ed Physically Hurt Never 12/08/2019 Verbally Threaten Not on file 12/08/2019 Sex and Gender Information Value Date Recorded Sex Assigned at Not on file Gender Identity Not on file Sexual Orientation Not on file Last Filed Vital Signs Vital Sign Reading [...] Body Mass Index 24.64 01/15/2017 1236 EDT Functional Status Functional Status Response Date of [...] concentrating, remembering, or making decisions? No 01/15/2017 Plan of Treatment Not on file Care Teams Monkey Keeper Relationship Specialty Start Date End Date Crystal Howell APRN [address] [place] [address] PCP - General 07/18/17
--- OUTSIDE RECORDS SUMMARY | 2023-12-30 18:40 | XMS_ITS | Encounter Summary ---
Author Organization [facility] Address [address] [place] [address] Care Team Providers Care Manager Process Improvement Name Role Phone Mariam Hernandez MD Primary Care Provider [phone] Reason for Visit * Reason Onset Date Comments Biopsy Results 04/25/2017 Encounter Details Date Type Department Care Team (Late st Contact Info) Description 04/25/2017 Telephone [facility] Dermatology [address] [facility] [address] [place], [place] [id number] Mervat Melo MD PhD [address] [facility] [place] [address] Biopsy Results Social History Tobacco Use Types Packs/Day Years [...] encounter Miscellaneous Notes * Telephone Encounter - Soraya Rain - 04/25/2017 1331 EST Spoke with patient regarding biopsy results. She verbalized understanding and had no further questions at this time. Soraya Rain 04/25/2017 13:31 * Telephone Encounter - AdarshimerJeanie - 04/25/2017 1308 EST Patient calling to see if biopsy results are in yet? Please call. documented in this encounter Plan of Treatment Not on file documented as of this encounter Visit Diagnoses Not on filedocumented in this encounter Care Teams Manager Process Improvement Relationship Specialty Start Date End Date Mariam Hernandez MD [address] [place] [address] PCP - General 01/04/17 07/17/17 documented as of this encounter
--- OUTSIDE RECORDS SUMMARY | 2023-12-30 18:40 | XMS_ITS | Encounter Summary ---
Author Organization [facility] Address [address] [place] [address] Care Team Providers Care It Architect Name Role Phone Mariam Hernandez MD Primary Care Provider [phone] Encounter Details Date Type Department Care Team (Late st Contact Info) Description 04/19/2017 Results Only [facility] Dermatology 3rd Floor [facility] [address] [place], [place] [id number] Mervat Melo MD PhD [address] [place] [address], [address] [place] [address] Social History Tobacco Use Types Packs/Day Years [...] No 01/15/2017 documented as of this encounter Progress Notes * Mervat Melo MD - 04/25/2017 1013 EST Please notify patient of benign diagnosis: Traumatized intradermal nevus. No further treatment needed to the area. SKIN OF FLANK, LEFT, PUNCH BIOPSY: - Melanocytic nevus, predominantly intradermal type. ??See microscopic and comment. ?- Lesion measures approximately 0.8 mm to the nearest peripheral edge. ??- Lesion measures approximately 2.0 mm to the biopsy base. - Superficial dermal fibrosis with inflammation and reactive changes. Mervat Melo MD documented in this encounter Plan of Treatment Not on file documented as of this encounter Procedures Procedure Name Priority Date/Time Associated Diagnosis Comments SURGICAL PATHOLOGY Routine 04/19/2017 7:31 EST documented in this encounter Results * SURGICAL PATHOLOGY (04/19/2017 7:31 EST) Pathology Report: SURGICAL PATHOLOGY REPORT Reports generated via electronic interface contain original data; however they are lacking the format of the original report. Caution should be taken when reading/interpreting unformatted reports. Name: ? HANNAH SINHA ? Accession #: ? [id number] ? : ? 1950 (Age: 67) ??F ? Collect Date: ? 04/19/2017 ? Location: ? [facility] ? Receive Date: ? 04/19/2017 ? Provider: MERVAT MELO MD Copy to: ? Final Pathologic Diagnosis: SKIN OF FLANK, LEFT, PUNCH BIOPSY: - Melanocytic nevus, predominantly intradermal type. ??See microscopic and comment. ?? - Lesion measures approximately 0.8 mm to the nearest peripheral edge. - Lesion measures approximately 2.0 mm to the biopsy base. - Superficial dermal fibrosis with inflammation and reactive changes. Comment: This case was shown in intradepartmental consultation. ??(Dr. Flores)/vicki Microscopic Description: Sections are of a papule with mild epidermal hyperplasia and hyperkeratosis. There is a proliferation of melanocytes within the dermis. ??The proliferation consists of nests, cords, and strands that diminish in size with descent into the dermis. ??The melanocytes are slightly enlarged but generally have round-oval nuclei and a moderate amount of cytoplasm. ??The melanocytes show fruit loader machine operator maturation. SOX-10 ALK PHOS (EP268, [employer]) does not show evidence of well developed confluent growth and upward migration. Superficially, there is dermal fibrosis with patchy lymphomononuclear inflammation. Deeper levels have been examined. ??(Dr. Flores)/vicki NOTE: ??One or more of the reagents used in immunoperoxidase testing in this case may not have been cleared or approved by the U.S. Food and Drug Administration (FDA). ??The FDA has determined that such clearance or approval is not necessary. ??These tests are used for clinical purposes. ??They should not be regarded as investigational or for research. ??These reagents' performance characteristics have been determined by [facility]. ??The positive and negative controls worked appropriately. If immunoperoxidase staining has been performed on alcohol fixed cytology specimens, which has not been fully validated, the assays should be interpreted with caution and correlated with clinical data. ??This laboratory is certified under the Clinical Laboratory Improvement Amendments of 1988 (CLIA-88) as qualified to perform high complexity clinical laboratory testing. ?? Document reviewed and electronically signed by: RAMONA FLORES MD Report ??Date: 04/24/2017 14:25 By the signature above, the attending physician certifies that he/she has personally conducted a gross and/or microscopic examination of the described specimens and rendered or confirmed the above diagnosis. Specimen(s) Received: Left flank Clinical History: 3.0 x 1.5 mm brown macule with subtle erythema and broad pigment network; clinical diagnosis code: ??D48.5 Gross Description: ? Received in formalin labelled with proper patient identification (initials S, M) and left flank is a 0.5 cm circular skin excised to a depth of 0.5 cm. The central skin surface shows a dark brown macule with irregular borders, 0.3 x 0.1 cm. Bisected and entirely submitted in 1. DEE Lal (ASCP) 04/22/2017 9:41 AM End of Report [facility] 04/19/2017 7:31 EST 04/19/2017 7:31 EST Mervat Melo MD PhD PATHOLOGY ORDERAB LES [facility] [address] [place] [address] documented in this encounter Visit Diagnoses Not on filedocumented in this encounter Care Teams It Architect Relationship Specialty Start Date End Date Mariam Hernandez MD [address] [place] [id number] PCP - General 01/04/17 07/17/17 documented as of this encounter
--- OUTSIDE RECORDS SUMMARY | 2023-12-30 18:40 | XMS_ITS | Encounter Summary ---
Author Organization [facility] Address [address] [place] [address] Care Team Providers Care Broadcast Journalist Name Role Phone Crystal Howell APRN Primary Care Provider [phone] Reason for Visit * Reason Onset Date Comments Appointment Related 05/22/2021 called to seble hobson Encounter Details Date Type Department Care Team (Late st Contact Info) Description 05/22/2021 Telephone [facility] Ophthalmology - [address] [address] Kristen Faria MD [address] [facility], [address] [place] [address] Appointment Related (called to cancel) Social History Tobacco Use Types Packs/Day Years [...] encounter Miscellaneous Notes * Telephone Encounter - Hilda Brice - 05/22/2021 1829 EST Pt called to cancel appt on 05/24 @ 12:[address] Faria. Due to exposure to covid. Pt will call to reschedule. documented in this encounter Plan of Treatment Not on file documented as of this encounter Visit Diagnoses Not on filedocumented in this encounter Care Teams Broadcast Journalist Relationship Specialty Start Date End Date Crystal Howell, SAJAN [address] [place] [address] PCP - General 07/18/17 documented as of this encounter
--- OUTSIDE RECORDS SUMMARY | 2023-12-30 18:40 | XMS_ITS | Encounter Summary ---
Author Organization [facility] Address [address] [place] [address] Care Team Providers Care Cardiac Rehabilitation Specialist Name Role Phone Crystal Howell APRN Primary Care Provider [phone] Encounter Details Date Type Department Care Team (Late st Contact Info) Description 05/12/2021 Transcribe Orders [facility] Non-Invasive Cardiology [address] [place] [address] Crystal Howell APRN [address] [phone] Social History Tobacco Use Types Packs/Day Years [...] on filedocumented in this encounter Care Teams Cardiac Rehabilitation Specialist Relationship Specialty Start Date End Date Crystal Howell APRN [address] [place] [address] PCP - General 07/18/17 documented as of this encounter
--- OUTSIDE RECORDS SUMMARY | 2023-12-30 18:41 | XMS_ITS | Encounter Summary ---
Author Organization [facility] Address [address] [facility] [place] [address] Care Team Providers Care Hospital Insurance Representative Name Role Phone Crystal Howell APRN Primary Care Provider [phone] Encounter Details Date Type Department Care Team (Latest Contact Info) Description 09/13/2022 Travel Social History Tobacco Use Types Packs/Day Years Used Date Smoking Tobacco: Never Smokeless Tobacco: Never Alcohol Use Standard Drinks/Week Comments Yes 0 (1 standard drink = 0.6 oz pur e alcohol) 3 drinks weekly Sex and Gender Information Value Date Recorded Sex Assigned at Not on file Gender Identity Not on file Sexual Orientation Not on file documented as of this encounter Plan of Treatment Not on file documented as of this encounter Visit Diagnoses Not on filedocumented in this encounter Care Teams Hospital Insurance Representative Relationship Specialty Start Date End Date Crystal Howell APRN [address] [place] [address] PCP - General Family Medicine 02/27/17 documented as of this encounter
--- OUTSIDE RECORDS SUMMARY | 2023-12-30 18:41 | XMS_ITS | Clinical Summary ---
Author Organization [facility] Address One [facility] [place] [address] Care Team Providers Care Auto Inspection Specialist Name Role Phone Crystal Howell APRN Primary Care Provider [phone] Allergies Active Allergy Reactions Criticality Noted Date Comments Iodine And Iodide Containing Products Anaphylaxis High Nitrofurantoin Monohyd/M-Cryst 02/22/2022 Nitrofurantoin Other (See Comments) Stomach upset Penicillins Hives Medium Medications Medication Sig Dispensed Refills Start Date End Date Status fluticasone propionate (FLONASE) 50 mcg/actuation [place], Suspension SHAKE LIQUID AND USE 1 SPRAY IN EACH NOSTRIL TWICE DAILY 11/15/2020 Active magnesium citrate Solution Take by mouth. Active levothyroxine (Synthroid) 50 mcg tablet Take 50 mcg by mouth daily. 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 Claudication leg paresthesias 09/21/2011 Social History Tobacco Use Types Packs/Day Years [...] Sign Reading Time Taken Comments Blood Pressure 152/62 02/22/2022 1:18 PM EDT Pulse 81 02/22/2022 1:18 PM EDT Temperature 36.7 ??C (98 ??F) 02/22/2022 1:18 PM EDT Respiratory Rate 18 02/22/2022 1:18 PM EDT Oxygen Saturation 98% 02/22/2022 1:18 PM EDT Inhaled Oxygen Concentration - - Weight 72.6 kg (160 lb) 02/22/2022 1:18 PM EDT Height 170.2 cm (5' 7) 02/22/2022 1:18 PM EDT Body Mass Index 25.06 02/22/2022 1:18 PM EDT Plan of Treatment Health Maintenance Due Date Last Done Comments CT Colonography 1950 FIT DNA 1950 FIT 1950 Sigmoidoscopy 1950 Hepatitis C Screening 1966 Tdap adult 1967 Tetanus vaccine 1967 Zoster vaccine (1 of 2) 1998 Advance Directive 2003 Bone Density Scan 2013 Pneumoccocal Vaccine: 65+ (1 of 1 - PCV) 2013 Covid-19 Vaccine (1 - 2022-24 season) 2023 Influenza (Flu) vaccine (1 o f 1 - Influenza standard series) 01/05/2024 Colonoscopy 02/14/2025 02/14/2015, 02/14/2015 Colorectal Cancer Screening 02/14/2025 Sigmoidoscopy (10 year) with FIT yearly 02/14/2025 1 , 02/14/2015 Medical Devices Implanted Type Area Tank Furnace Operator Device Identifier Shelf Expiration Date Model / Serial / Lot Cover,Un3,Bu rhl,W/Tab,10 mm ([id number]) - [id number] Implanted:Qt y: 3 on 03/11/2017 by Yamil Gibson MD at PENDING SALE TO [facility] IMPLANTS enercast - [employer]ize [id number] / 0 / 0 Screw,Un3,Ne w,Hd,Sd,1.5x 4mm ([id number]) - [id number] Implanted:Qt y: 17 on 03/11/2017 by Yamil Gibson MD at PENDING SALE TO [employer] [facility] IMPLANTS [employer] CRANIOMAXXILLOFACIAL - [id number] / 0 / 0 Durepair,3x3 ([id number]) - [id number] Implanted:Qt y: 1 on 03/11/2017 by Mani Sung MD at [facility] IMPLANT[employer] Left: Cranial [employer]- Medical - [id number] 08/03/2018 [id number] / 0 / [id number] Plate,Un3,Re ct ([id number]) - [id number] Implanted:Qt y: 1 on 03/11/2017 by Mani Sung MD at [facility] IMPL[employer] - [id number] / 0 / 0 Procedures Procedure Name Priority Date/Time Associated Diagnosis Comments COLONOSCOPY Routine 02/14/2015 12:45 PM EDT from Last 3 Months or Most Recently Relevant to Health Maintenance Results * COLONOSCOPY (02/14/2015 12:45 PM EDT) [facility] COLONOSCOPY [facility] Endoscopy Patient Name: Em Dickerson ? Procedure Date: 02/14/2015 12:45 PM ? N: [id number] ? Date of : 1950 ? Age: 64 ? Order #: [id number] ? Procedure: ? Colonoscopy Indications: ? Screening for colorectal malignant ? neoplasm Providers: ? Kirsten Singleton MD, Lisa Lopez RN, ? Lisa Herrmann, Dope Maintenance Worker Referring MD: ?Gayatri Claros MD Medicines: ? Midazolam 3 mg IV, Fentanyl 150 ? micrograms IV Complications: ? No immediate complications. Procedure: ? Pre-Anesthesia Assessment: ? - Prior to the procedure, a History ? and Physical was performed, and ? patient medications, allergies and ? sensitivities were reviewed. The ? patient's tolerance of previous ? anesthesia was reviewed. ? - The risks and benefits of the ? procedure and the sedation options ? and risks were discussed with the ? patient. All questions were answered ? and informed consent was obtained. ? The procedure, indications, benefits, ? risks and alternatives were explained ? to the patient. Specifically ? discussed were potential ? complications including, but not ? limited to, bleeding, perforation, ? infection, missing a cancer, and ? adverse medication reactions. The ? patient was placed in the left ? lateral decubitus position, and a ? digital rectal exam was performed. ? The Colonoscope was inserted in the ? anus and under direct visualization, ? advanced to the terminal ileum. ? Careful inspection was made as the ? colonoscope was withdrawn. The ? colonoscopy was performed without ? difficulty. The patient tolerated the ? procedure well. The quality of the ? bowel preparation was excellent. ? Findings: ? Multiple small-mouthed diverticula were found in the ? sigmoid colon and in the descending colon. ? The exam was otherwise without abnormality. ? Impression: ?- Diverticulosis in the sigmoid colon ? and in the descending colon. ? - The examination was otherwise ? normal. ? - No specimens collected. Recommendation: ?- High fiber diet. ? - Repeat colonoscopy in 10 years for ? screening purposes. ? Kirsten Singleton MD 02/14/2015 2:16 PM This report has been signed electronically. Number of Addenda: 0 Note Initiated On: 02/14/2015 12:45 PM PROVATION 02/14/2015 12:4 5 PM EDT Gayatri Claros APRN GENERAL SURGICAL O RDERABLES PROVATION from Last 3 Months or Most Recently Relevant to Health Maintenance Advance Directives * Full Code (Latest Code Status on File) Date Activated Date Inactivated Comments 03/12/2017 2:18 AM 03/13/2017 2:53 PM Question Answer Comments Does patient have capacity to make decision: Yes * Full Code Date Activated Date Inactivated Comments 03/11/2017 11:04 AM 03/11/2017 7:00 PM Question Answer Comments Does patient have capacity to make decision: Yes Care Teams Auto Inspection Specialist Relationship Specialty Start Date End Date Crystal Howell APRN [address] [place] [address] PCP - General Family Medicine 02/27/17
--- OUTSIDE RECORDS SUMMARY | 2023-12-30 18:41 | XMS_ITS | Encounter Summary ---
Author Organization [facility] Address One [facility] [place] [address] Care Team Providers Care Sole Cutter Name Role Phone Crystal Howell APRN Primary Care Provider [phone] Encounter Details Date Type Department Care Team (Latest Contact Info) Description 03/15/2023 Travel Social History Tobacco Use Types Packs/Day [...] on filedocumented in this encounter Care Teams Sole Cutter Relationship Specialty Start Date End Date Crystal Howell APRN [address] [place] [address] PCP - General Family Medicine 02/27/17 documented as of this encounter
--- OUTSIDE RECORDS SUMMARY | 2023-12-30 18:41 | XMS_ITS | Encounter Summary ---
Author Organization [facility] Address [address] [place] [address] Care Team Providers Care Head Stock Transfer Clerk Name Role Phone Mariam Hernandez MD Primary Care Provider [phone] Reason for Visit * Reason Comments Skin Exam hx MM Encounter Details Date Type Department Care Team (Late st Contact Info) Description 01/08/2017 8:40 EDT Office Visit [facility] Dermatology 3rd Floor [address] [address] Mervat Melo MD PhD [address] [place] [address], [address] [place] [address] Neoplasm of uncertain behavior of skin (Primary Dx); Scar condition and fibrosis of skin; Melanoma in situ of cheek (CMS-HCC) (HCC-CMS); Enlarged lymph node in neck Social History Tobacco Use Types Packs/Day Years Used Date Smoking Tobacco: Never Sex and Gender Information Value [...] visiting a doctor's office or shopping? No 08/23/2016 Cognitive Status Response Date of Assessm ent Because of a physical, menta l, or emotional condition, does this person have serious difficulty concentrating, remembering, or making decisions? No 08/23/2016 documented as of this encounter Progress Notes * Eloisa Park - 01/08/2017 0840 EDT Review of Systems Constitutional: Negative for [...] sleep disturbance. The patient is not nervous/anxious. Eloisa Park 01/08/2017 8:35 * Jerri Dover MD - 01/08/2017 0840 EDT Dermatology Outpatient Visit Note Chief Complaint Patient presents with ??? Skin Exam hx MM Dermatologic History: 1. 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 Dickerson is a 66 y.o. female who presents for follow up for melanoma in situ removed with Mohs in 08/2016. She has had a swollen lymph node in the left neck for 3 weeks that her PCP palpated on exam and an ultrasound on it was inconclusive so it was decided to clinically monitor at that time. No tooth or mouth pain. No recent illness. She denies fevers, chills, pain or other systemic symptoms. She has a maternal aunt with breast cancer. She is otherwise feeling well and has no other cutaneous concerns today. She denies any other new, changing, bleeding, tender, or non-healing skin lesions today. For full Medical, Surgical, Family, and Social histories, please see the History section of this encounter in the electronic chart which I have personally reviewed. For Review of Systems, Medications and Allergies, please see those sections of this encounter in the electronic chart which I have also reviewed. She has a current medication list which includes the following prescription(s): diazepam. She is allergic to iv contrast [iodine [...] with the addition of the following comments: -left superior cervical lymph node chain, there is a palpable, mobile 0.4 cm nodule otherwise no palpable parotid, pre- or postauricular, occipital or right cervical basin lymphadenopathy. -scattered on the sun exposed areas are multiple even, light brown macules with either bland or regular pigment network on dermoscopy -left cheek is a well-healed linear supple scar without nodularity, repigmentation, edema or tenderness to palpation ASSESSMENT/PLAN 1. Neoplasm of uncertain behavior, left cervical lymph node chain, differential includes metastaticmelanoma vs reactive lymph node vs other - Placed order today for IR-guided FNA of the left cervical lymph node to r/o melanoma metastases. Radiology was called to see of any available appointments today or within the near future. 2. History of melanoma in situ, left cheek -No clinical evidence of superficial reoccurence. The importance of sunscreen use, sun avoidance and self-examination was discussed, of which the patient showed a good understanding. ABCDE's of melanoma discussed as well as the importance of the ugly duckling rule and self skin exams at least monthly or every other month of which the patient showed a good understanding. Handout provided today. She will f/u in 3 months or in the interim should problems arise. Jerri Dover MD 01/08/2017 8:58 Attestation Statement: I saw and examined the patient with the resident/fellow. I agree with the findings and plan of care documented in the resident's/fellow's note. Mervat Melo MD Dermatology [facility] documented in this encounter Plan of Treatment Not on file documented as of this encounter Visit Diagnoses Diagnosis Neoplasm of uncertain behavior of skin- Primary Scar condition and fibrosis of skin Melanoma in situ of cheek (HCC-CMS) Malignant melanoma of skin of other and unspecified parts of face Enlarged lymph node in neck documented in this encounter Care Teams Head Stock Transfer Clerk Relationship Specialty Start Date End Date Mariam Hernandez MD [address] [place] [address] PCP - General 01/04/17 07/17/17 documented as of this encounter
--- OUTSIDE RECORDS SUMMARY | 2023-12-30 18:41 | XMS_ITS | Encounter Summary ---
Author Organization [facility] Address [address] [place] [address] Care Team Providers Care Inspector Subassembly Name Role Phone Mariam Hernandez MD Primary Care Provider [phone] Reason for Visit * Reason Onset Date Comments Surgery Scheduling 02/21/2017 11.7 Encounter Details Date Type Department Care Team (Late st Contact Info) Description 02/21/2017 Telephone [facility] [address] [place], [place] [id number] Alex Aldridge MD [address] [facility], [address] [place] [address] Surgery Scheduling (11.7) Social History Tobacco Use Types Packs/Day Years [...] encounter Miscellaneous Notes * Telephone Encounter - Shaila Felton - 02/21/2017 1351 EDT Patient called to confirm that she would like to cancel CT/appointment with Dr. Aldridge scheduled for 03/05 and surgery scheduled for 03/12. * Telephone Encounter - Krystin Owens - 02/21/2017 1256 EDT LM for Em to confirm that she would like to cancel her surgery on 03/12/[address] Aldridge and todiscuss cancelling her appointment and CT on 03/05/17. Asked that she contact our office to confirm. * Telephone Encounter - Aleta Woody - 02/21/2017 1240 EDT Reason for Call: Surgery Scheduling (11.7) Summary/Symptoms: Pt calling to cancel her surgery scheduled for 11.[address] Aldridge. Aleta Woody 02/21/2017 12:40 documented in this encounter Plan of Treatment Not on file documented as of this encounter Visit Diagnoses Not on filedocumented in this encounter Care Teams Inspector Subassembly Relationship Specialty Start Date End Date Mariam Hernandez MD [address] [place] [address] PCP - General 01/04/17 07/17/17 documented as of this encounter
--- OUTSIDE RECORDS SUMMARY | 2023-12-30 18:41 | XMS_ITS | Encounter Summary ---
Author Organization [facility] Address [address] [place] [address] Care Team Providers Care Diesel Locomotive Crane Operator Name Role Phone Unavailable Primary Care Provider Unavailabl e Encounter Details Date Type Department Care Team (Late st Contact Info) Description 11/04/2002 Results Only [facility] - [facility] conversion [address] [place] [address] Radha Nunez, DEMO COORDINATOR Social History Tobacco Use Types Packs/Day Years Used Date Smoking Tobacco: Never Assessed Sex and Gender Information Value Date Recorded Sex Assigned at Not on file Gender Identity Not on file Sexual Orientation Not on file documented as of this encounter Plan of Treatment Not on file documented as of this encounter Procedures Procedure Name Priority Date/Time Associated Diagnosis Comments CYTOPATHOLOGY Routine 11/04/2002 0:00 EDT documented in this encounter Results * CYTOPATHOLOGY (11/04/2002 0:00 EDT) Pathology Report: CYTOPATHOLOGY REPORT Reports generated via electronic interface contain original data; however they are lacking the format of the original report. Caution should be taken when reading/interpreti ng unformatted reports. Name: ? HANNAH DICKERSON ? Accession #: ? [id number] : ? 1950 (Age: 52) ??F ?Collect Date: ? 11/04/2002 Location: ? [facility] ? Receive Date: ? 11/09/2002 Provider: ?RADHA NUNEZ DEMO COORDINATOR Copy to: ? Specimen/Source: ?ThinPrep Pap Test, Cervix/Endocervix Last Menstrual Period: ? SPECIMEN ADEQUACY ? Satisfactory for Evaluation - assessment of transformation zone component not applicable ( e.g. atrophy, vaginal sample, hysterectomy) GENERAL CATEGORIZATION ? Negative for Intraepithelial Lesion or Malignancy ? Document reviewed and electronically signed by: ? GRIS De La Cruz(ASCP) ? Report Date: ??11/11/2002 12:34 End of Report [facility] 11/04/2002 11/09/2002 Radha Nunez NP PATHOLOGY ORDERABLES [facility] [address] [place] [address] documented in this encounter Visit Diagnoses Not on filedocumented in this encounter
--- OUTSIDE RECORDS SUMMARY | 2023-12-30 18:41 | XMS_ITS | Encounter Summary ---
Author Organization [facility] Address [address] [place] [address] Care Team Providers Care Possum Trapper Name Role Phone Unavailable Primary Care Provider Unavailabl e Encounter Details Date Type Department Care Team (Late st Contact Info) Description 11/15/[address] [facility] - Maple conversion [address] [place] [address] Radha Nunez, LABORATORY VETERINARIAN Social History Tobacco Use Types Packs/Day Years Used Date Smoking Tobacco: Never Assessed Sex and Gender Information Value Date Recorded Sex Assigned at Not on file Gender Identity Not on file Sexual Orientation Not on file documented as of this encounter Plan of Treatment Not on file documented as of this encounter Procedures Procedure Name Priority Date/Time Associated Diagnosis Comments CYTOPATHOLOGY Routine 11/15/2003 0:00 EDT documented in this encounter Results * CYTOPATHOLOGY (11/15/2003 0:00 EDT) Pathology Report: CYTOPATHOLOGY REPORT Reports generated via electronic interface contain original data; however they are lacking the format of the original report. Caution should be taken when reading/interpreti ng unformatted reports. Name: ? HANNAH DICKERSON ? Accession #: ? [id number] : ? 1950 (Age: 53) ??F ?Collect Date: ? 11/15/2003 Location: ? [facility] ? Receive Date: ? 11/17/2003 Provider: ?RADHA NUNEZ LABORATORY VETERINARIAN Copy to: ? Specimen/Source: ?ThinPrep Pap Test, Cervix/Endocervix Last Menstrual Period: ? SPECIMEN ADEQUACY ? Satisfactory for Evaluation - assessment of transformation zone component not applicable ( e.g. atrophy, vaginal sample, hysterectomy) GENERAL CATEGORIZATION ? Negative for Intraepithelial Lesion or Malignancy ? Document reviewed and electronically signed by: ? GRIS Torres(ASCP) ? Report Date: ??11/23/2003 10:31 End of Report [facility] 11/15/2003 11/17/2003 Radha Nunez NP PATHOLOGY ORDERABLES [facility] [address] [place] [address] documented in this encounter Visit Diagnoses Not on filedocumented in this encounter
--- OUTSIDE RECORDS SUMMARY | 2023-12-30 18:41 | XMS_ITS | Encounter Summary ---
Author Organization [facility] Address [facility] [place] [address] Care Team Providers Care Lead Front End Developer Name Role Phone Crystal Howell APRN Primary Care Provider [phone] Reason for Referral * Diagnostic Test (Routine) - Closed Specialty Diagnoses / Procedures Referred By Contiain messina Referred To Contact Radiology Diagnoses Meningioma Procedures MRI Brain wwo Contrast (Generic) Mani Sung MD [facility] [place] [address] [place] [address] Referral ID Status Reason Start Date Expiration Date V isits Requested Visits Authorized [id number] Closed Specialty Service Requested 12/16/2020 06/18/2022 1 1 Encounter Details Date Type Department Care Team (Late st Contact Info) Description 12/16/2020 [place] [address] Lorenza Lawrence Social History Tobacco Use Types Packs/Day Years Used Date Smoking Tobacco: Never Smokeless Tobacco: Never Alcohol Use Standard Drinks/Week Comments Yes 0 (1 standard drink = 0.6 oz pur e alcohol) 3 drinks weekly Sex and Gender Information Value Date Recorded Sex Assigned at Not on file Gender Identity Not on file Sexual Orientation Not on file documented as of this encounter Miscellaneous Notes * Telephone Encounter - Priti Chowdary - 10/05/2021 2:44 PM EDT Spoke to pt to go over upcoming appt details. MRI sched on 12/07/21 at 10:10 am with sedation before at 9:10am. PT will then see JPA same day at 1:00 pm. Sent appt card. Closing encounter. * Telephone Encounter - Lorenza Lawrence - 10/04/2021 11:38 AM EDT Updated safety questions Sent Rad Request to coordinate MRI Brain wwo w/ oral sedation any in Dec, except 12/21/2021with arrival no earlier than 10 am. OV w/ JPA after * Telephone Encounter - Priti Chowdary - 10/04/2021 10:38 AM EDT Lm for pt to call back and do screening questions and get preferences for which day and time for imaging to coordinate an appt with JPMayur. * Telephone Encounter - Lorenza Lawrence - 12/16/2020 2:51 PM EDT RN, Please enter MRI orders per MATTIE last note. Betsy Britt * Telephone Encounter - Lorenza Lawrence - 12/16/2020 2:40 PM EDT Patient needs f/u appointment(s): With RAFAELA on/around 12/16/21 1 year OV, s/p L pterinal craniotomy for resection 03/11/17, MRI Brain wwo prior, * Telephone Encounter - Lorenza Lawrence - 12/16/2020 2:32 PM EDT ----- Message from Mani Sung MD sent at 12/16/2020 2:31 PM EDT ----- F/u 1 year w/ MRI brain +/- contrast documented in this encounter Plan of Treatment Not on file documented as of this encounter Results * MRI Brain wwo Contrast (Generic) (02/22/2022 12:32 PM EDT) Anatomical Region Laterality Modality Head Magnetic Resonan ce Impressions 02/23/2022 11:16 AM EDT 1. ??No evidence of recurrence along the left sphenoid wing or other sites of meningioma. 2. ??Stable mild chronic small vessel ischemic disease. 3. ??Stable multiple chronic microhemorrhages in the peripheral supratentorial brain. Distribution favors cerebral amyloid angiopathy. I have personally reviewed the image(s) and the resident's interpretation and agree with the findings, Patricia Posadas at 02/23/2022 11:16 AM Thank you for letting us participate in the care of this patient. ??If you are a health care provider and have any questions regarding this report, please contact the number below. ??For patients who have questions please contact the health rn patient care that requested your imaging first. ? 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 COMPARISON: Numerous prior head MRIs, most recently 12/15/2020, 02/16/2017 CT head 03/11/2017 FINDINGS: Status post left pterional craniotomy with associated dural thickening and unchanged degree of enhancement. Unchanged high T2 signal in the anterior pole of the left temporal lobe consistent with encephalomalacia and gliosis at site of prior resection. Multiple foci of high T2 signal in the periventricular and subcortical white matter bilaterally. Stable numerous small foci of susceptibility signal dropout throughout the supratentorial brain. No mass, mass effect, midline shift, or extra-axial fluid collection. No abnormal diffusion restriction. Intracranial structures are normal in appearance. Mild prominence of the ventricles in keeping with cortical atrophy. Major intracranial vascular flow voids are normal. Mild mucosal thickening in bilateral anterior ethmoid and maxillary sinuses. Remaining paranasal sinuses and mastoid air cells are clear. Orbital contents are grossly normal. T1 and T2 hyperintense Related enhancing lesion in the anterior right parietal bone near the margin of the coronal suture which extends to the lateral cortex. The size and appearance of a hemangioma on prior CT. No aggressive marrow replacing process. 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 COMPARISON: Numerous prior head MRIs, most recently 12/15/2020, 02/16/2017 CT head 03/11/2017 FINDINGS: Status post left pterional craniotomy with associated dural thickeningand unchanged degree of enhancement. Unchanged high T2 signal in the anteriorpole of the left temporal lobe consistent with encephalomalacia and gliosis atsite of prior resection. Multiple foci of high T2 signal in the periventricular and subcorticalwhite matter bilaterally. Stable numerous small foci of susceptibility signal dropout throughoutthe supratentorial brain. No mass, mass effect, midline shift, or extra-axial fluid collection. No abnormal diffusion restriction. Intracranial structures are normal in appearance. Mild prominence of the ventricles in keeping with corticalatrophy. Major intracranial vascular flow voids are normal. Mild mucosal thickening in bilateral anterior ethmoid and maxillarysinuses. Remaining paranasal sinuses and mastoid air cells are clear. Orbitalcontents are grossly normal. T1 and T2 hyperintense Related enhancing lesion in the anterior right parietal bone near themargin of the coronal suture which extends to the lateral cortex. The size andappearance of a hemangioma on prior CT. No aggressive marrow replacing process. IMPRESSION 1. No evidence of recurrence along the left sphenoid wing or other sitesof meningioma. 2. Stable mild chronic small vessel ischemic disease. 3. Stable multiple chronic microhemorrhages in the peripheralsupratentorial brain. Distribution favors cerebral amyloid angiopathy. I have personally reviewed the image(s) and the resident's interpretationand agree with the findings, Patricia Posadas at 02/23/2022 11:16 AM Thank you for letting us participate in the care of this patient. If youare a health care provider and have any questions regarding this report,please contact the number below. For patients who have questions please contactthe health rn patient care that requested your imaging first. Electronically signed by: Patricia Posadas [facility]([phone]), at 02/23/2022 11:16 AM Mani Sung MD IMG MRI ORDERABLES documented in this encounter Visit Diagnoses Diagnosis Meningioma Benign neoplasm of cerebral meninges Meningioma Benign neoplasm of cerebral meninges documented in this encounter Care Teams Lead Front End Developer Relationship Specialty Start Date End Date Crystal Howell APRN [address] [place] [address] PCP - General Family Medicine 02/27/17 documented as of this encounter
--- OUTSIDE RECORDS SUMMARY | 2023-12-30 18:41 | XMS_ITS | Encounter Summary ---
Author Organization [facility] Address [address] [place] [address] Care Team Providers Care Plastic Installer Name Role Phone Unavailable Primary Care Provider Unavailabl e Encounter Details Date Type Department Care Team (Late st Contact Info) Description 03/22/2008 Before [facility] Converted Visit (Map[facility]) [facility] - Maple conversion [address] [place] [address] Radha Nunez, SUSANA Social History Tobacco Use Types Packs/Day Years Used Date Smoking Tobacco: Never Assessed Sex and Gender Information Value Date Recorded Sex Assigned at Not on file Gender Identity Not on file Sexual Orientation Not on file documented as of this encounter Plan of Treatment Not on file documented as of this encounter Procedures Procedure Name Priority Date/Time Associated Diagnosis Comments HPV DETECTION, HIGH RISK TYPES Routine 03/22/2008 15:30 EST CYTOPATHOLOGY Routine 03/22/2008 0:00 EST documented in this encounter Results * HUMAN PAPILLOMA VIRUS DNA TEST (03/22/2008 15:30 EST) Specimen Description Cervix, ThinPrep vial [facility] Result Negative for HPV types 16, 18, 31, 33, 35, 39, 45, 51, 52, 56, 58, 59, and 68. [facility] Report Status Final 04/06/2008 [facility] 03/22/2008 15:3 0 EST 03/25/2008 14:46 EST Radha M Mayra GREASE PRESS HELPER MICROBIOLOGY - GENER AL ORDERABLES [facility] [address] [place] [address] * CYTOPATHOLOGY (03/22/2008 0:00 EST) Pathology Report: CYTOPATHOLOGY REPORT ? Reports generated via electronic interface contain original data; ? however they are lacking the format of the original report. ? Caution should be taken when reading/interpreti ng unformatted reports. ? Name: ? HANNAH DICKERSON ? Accession #: ? [id number] ? : ? 1950 (Age: 57) ??F ?Collect Date: ? 03/22/2008 ? Location: ? [facility] ? Receive Date: ? 03/23/2008 ? Provider: ?RADHA M MAYRA GREASE PRESS HELPER ? Copy to: ? Specimen/Source: ?Pap Test, Cervix/Endocervix, ThinPrep Imaging System ? with manual evaluation ? Last Menstrual Period: ? 11/01/97 ? Other: ? HPVDX - HPV testing requested regardless of diagnosis on current ThinPrep Pap ?? test. ? SPECIMEN ADEQUACY ? Satisfactory for Evaluation ? - transformation zone component present ? - scant squamous epithelial component secondary to excessive inflammation ? GENERAL CATEGORIZATION ? Negative for Intraepithelial Lesion or Malignancy ? Document reviewed and electronically signed by: ? Lynan Toño, CT(ASCP) ? Report Date: ??03/25/2008 10:58 ? End of Report ? [facility] 03/22/2008 03/23/2008 Radha Nunez GREASE PRESS HELPER PATHOLOGY ORDERABLES [facility] [address] [place] [address] documented in this encounter Visit Diagnoses Not on filedocumented in this encounter
--- OUTSIDE RECORDS SUMMARY | 2023-12-30 18:41 | XMS_ITS | Encounter Summary ---
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) (Primary Dx) Discharge Disposition: Auto Discharge Social History Tobacco Use Types Packs/Day Years Used Date Smoking Tobacco: Never Assessed Sex and Gender Information Value Date Recorded Sex Assigned at Not on file Gender Identity Not on file Sexual Orientation Not on file documented as of this encounter Last Filed Vital Signs Vital Sign Reading Time Taken Comments Blood Pressure 176/50 08/23/2016 0803 EDT Pulse 75 08/23/2016 0803 EDT Temperature 36.2 ??C (97.2 ??F) 08/23/2016 0803 EDT Respiratory Rate - - Oxygen Saturation - - Inhaled Oxygen Concentration - - Weight - - Height - - Body Mass Index - - documented in this encounter Functional Status Functional Status Response [...] No 08/23/2016 documented as of this encounter Discharge Diagnoses Diagnosis D03.39 Melanoma in situ of other parts of face-D03.39[ICD-10-CM] documented in this encounter Patient Instructions * Patient Instructions* Shannon Jarrett - 08/23/2016 8:00 EDT CARE FOLLOWING YOUR SKIN SURGERY-Sutured Wound Care with Steri Strips for the 1st week ACTIVITY:? No strenuous activity for 48 hours (this includes gardening or heavy lifting of any kind). Resume moderate activity in 48 hours. Walking slowly/strolling is an excellent light activity during the first week. Running and weightlifting are not. ? If your surgery was on your head or neck, elevate your head with pillows when you lie down for the first few nights (consider sleeping in a recliner if you have one), and don't bend over to pepper picker objects or tie shoes for a few days if you can avoid it.? Do not drink alcoholic beverages for 48 hours. DISCOMFORT: ?? Do not use aspirin or products containing aspirin for 3 days after your surgery, unless approvedby your doctor. ?? To relieve discomfort, you may take acetaminophen (for example, TylenolTM or Extra-Strength TylenolTM) as directed. It actually works very well for this kind of pain. And, if you combine this withibuprofen (AdviTM) the two together are often very helpful in relieving pain (as helpful as VicodinTM in one study). If your doctor has given you a prescription for Vicodin, Tylenol with codeine, Dila udidTM or PercocetTM, or a different medicine, use as directed. ?? After the first night (when the numbing medicine wears off and it hurts the most), pain should get slowly better, not worse. A severe increase in pain may indicate a problem. Call the office or Dr. Mcqueen directly if after hours if this occurs. ?? Numbness, itching and sensitivity to temperature changes can occur after surgery and may take upto 18 months to normalize. BLEEDING, BRUISING, AND SWELLING: ?? It is normal for your wound to ooze a small amount of blood and stain the dressing. ?? Expect bruising and swelling in the area of your surgery to be the most noticeable 48 to 72 hours after surgery.?? Bruising and swelling usually begin to lessen 4 to 5 days after surgery. It should start to fade in 10-14 days. ?? If the swelling worsens quickly or becomes more painful, contact your doctor. ?? If your wound bleeds enough that the blood heavily soaks through to the outside of your bandage,do the following: ?? Leave the bandage in place. ?? Use tightly rolled up gauze or a cloth to apply direct pressure over the bandage for 20 minutes (no peeking). ?? If there is substantial bleeding that does not resolve with pressure, please call the office, Dr. Mcqueen, or proceed to the nearest emergency room or call 911. ?? Use additional gauze and tape to maintain pressure once the bleeding has stopped. INFECTION: ?? It is normal for your wound to be slightly sore and pink. ?? If the area becomes increasingly tender, red or warm, or if you develop fever and chills, then??contact your physician. DIETARY/SMOKING RESTRICTIONS: ?? If your surgery involved your lips or mouth, avoid hot liquids and foods for the first two to three hours after surgery.?? Eat soft foods for the first 24 hours and be careful when brushing your teeth (use a child's toothbrush to avoid stretching your mouth). Take small bites and try to minimizewide opening of your mouth for 3 weeks. Avoid elective dental work for 6 weeks. ?? Do not smoke for 3 weeks; smoking can be very harmful to wound healing. DAILY WOUND CARE: ?? Always wash your hands with soap and water before touching the bandage. ?? Keep the white bulky pressure bandage in place for at least 48 hours after surgery. If the bandage becomes blood tinged or loose, reinforce it with gauze & tape. (See above for management of bleeding).? GENTLY remove the bulky white pressure bandage in 48 hours, being careful not to disturb the flat, vazquez bandage. After 48 hours you can remove the bulky white pressure bandage. Some find it helpfulto wear this into the shower on the 3rd day, wash everything as you would normally do (okay to get bandage damp), and then remove the bandage after getting out of the shower (it will be easier to remove when damp). Do nothing to the flat vazquez bandage under this. ?? Leave the flat, vazquez bandage in place until your follow up appointment. If you do not have a follow up appointment remove it in 7 days and follow directions below. ?? To preserve the flat vazquez bandage as long as possible, wash around it carefully. It is just cosmetic, so do not worry it starts to fall off after only a few days. Once it has fallen off, wash any visible surface stitches daily with warm soapy water and pat dry. Cover with Vaseline and a bandaid and repeat daily until all surface stitches appear to have dissolved. WHEN TO CONTACT YOUR PHYSICAN: ?? Your wound continues to bleed briskly through the bandage after you have reinforced it and applied firm pressure for 20 minutes. ?? Acetaminophen & ibuprofen have not relieved your discomfort. ?? Your wound becomes increasingly sore, tender, red, or warm. ?? Your surgery site rapidly swells. CONTACT INFORMATION: To reach the hydroponics worker physician: During office hours: 8:00 am - 5:00 PM Saturday through Saturday ? Call:?? [phone] ? Ask to speak with a surgery nurse AFTER HOURS/WEEKENDS/HOLIDAYS:?First call Dr. Lena Mcqueen's cell phone: [phone]; if unable to reach Dr. Mcqueen, Call [phone] for the MOHS surgeon hydroponics worker. WOUND CARE INSTRUCTIONS for ONE WEEK AFTER SURGERY *Once the bandages are removed, the scar will be red and firm (especially in the lip/chin area). This is normal and will fade in time. It might take 6-12 months. *Massaging the area will help the scar soften and fade quicker. If the scar feels lumpy or firm, begin to massage the area 6 weeks after you remove the steri strips (7 weeks after surgery). To massage apply pressure directly and firmly over the scar with the fingertips and move lengthwise along thescar. Massage the area for a few minutes up to 10 times a day for 2 weeks. *About 6-8 weeks after surgery it is not uncommon to see tender 'pimple-like' bumps along the scar.This is normal as the scar continues to mature and the stitches underneath the skin begin to dissolve. Do not pick or squeeze-- this will resolve on its own. Should one break open producing a small amount of drainage, apply Vaseline/white petrolatum ointment a few times a day until it is completelyhealed. *Numbness in the surgical area is expected. It might take 12-18 months for the feeling to return tonormal. During this time sensations of itchiness, tingling and occasional sharp pains might be noted. These feelings are normal and will subside once the nerves have completely healed. *For cosmetic coverage a green-tinted concealer can be used to counteract redness during the initial first few months, once surface stitches have dissolved (usually by 7-10 days). Try Clinique Redness Solutions or Eucerin Redness Relief. Keep it protected from the sun for the first few months to imp rove the color of the scar. documented in this encounter Ordered Prescriptions Prescription Sig Dispensed Refills Start Date End Da te DIAZepam (VALIUM) 5 mg tablet Take 1 tablet by mouth. 1 Tab 08/23/2016 documented in this encounter Discharge Disposition Disposition Code Departure Means Destination Auto Discharge documented in this encounter Progress Notes * Lena Mcqueen MD - 08/27/2016 1031 EDT Shannon, please let her know that the central portion that was sent to the lab showed the same thing-just preinvasive melanoma. No evidence of anything worse and it was completely removed with Mohs and needs no other treatment. Please ask her how she is healing as well. Thanks, Lena Mcqueen MD * Mariangel Hill MD - 08/23/2016 0800 EDT Images from the original note were not included. MOHS EVALUATION NOTE Chief Complaint Patient presents with ??? Melanoma left cheek Subjective: Linda Sinha is a 66 y.o. 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 The patient is referred to consider Mohs surgery versus other treatment options. The patient notes that this lesion has been present for 1.5 years, and reports no symptoms. The patient???s risk factors for skin cancer include armando type I or II skin. Pacemaker/ICD: Denies Blood thinners: Denies Joints replaced/stents/valves: Denies Allergies (Latex/antibiotics): Penicillin; Macrobid For patient's past medical history, past surgical history, medications, medication allergies, social history and family history please please refer to the patients electronic record in [facility]. Objective: Well-appearing, NAD, A&O x 3 Complete physical examination of the affected area in the office today revealed a 2.2 cm x 1.7 cm brown, irregularly pigmented patch located on the left cheek. The remainder of the face, head, neck and hands were clear of concerning lesions. Careful examination of the draining lymph nodes revealed no suspicious adenopathy. Pathology: Melanoma in situ, involving the peripheral edges Assessment: - melanoma in situ Plan: Ms. Sinha and I discussed the meaning of the diagnosis of skin cancer and the options for treatmentincluding curettage and electrodesiccation, radiation therapy, conventional excision, and excision by Mohs micrographic surgery. Due to the need for a high cure rate and optimum functional and aesthetic outcome, I feel that Mohs surgery is indicated. The risks of Mohs surgery and potential reconstructive surgery, including but not limited to, bleeding, scarring, infection, recurrence, injury to functionally or cosmetically important nerve structures and an unsatisfactory cosmetic result were reviewed. The patient was given an opportunity to ask questions, and I believe that all of her questions were answered satisfactorily. In addition the patient was provided with written material that describes the Mohs procedure and related matters. Ms. Sinha understands that following Mohs surgery an operative repair may be required and may involve substantial suturing. We have jointly planned to have me repair the wound at the day of surgery. She understands that following reconstruction, if performed, many months may elapse before a decision can be made about the final cosmetic result, and that, in some cases a revision may be necessary to optimize the outcome. I explained to Ms. Sinha that in addition to the risk of recurrence from herskin cancer she has an increased risk of developing additional new skin cancers elsewhere. For thatreason, followup with provider at [facility] (pt prefers to switch care here), for ongoing skin surveillance examinations, after surgery, will be imperative. The patient has been scheduled to undergo surgery today. Note: Valium 5mg prescribed today for procedure. MOHS OPERATIVE REPORT USING MART-1 IMMUNOSTAINS Patient Name: Linda Sinha Date of Service: August 23, 2016 Surgeon: Lena Mcqueen MD Building Maintenance Technician: Mariangel Hill MD; Jackson Hickey MD Case #: [id number] Preoperative Diagnosis: melanoma in situ Preoperative Procedure: Mohs micrographic surgery Location of Lesion: left cheek Preoperative Lesion Size: 2.2 cm x 1.7 cm Preoperative Procedure: Mohs microscopically-controlled fresh tissue excision Indications: The patient presents with a melanoma in situ. The pathology was reviewed prior to surgery. Because of the histologic and clinical nature of the lesion, as well as its location, the need to achieve the highest cure rate while providing maximum tissue preservation warranted tumor extirpation via microscopically-controlled excision using the Mohs fresh tissue technique. This tumor met appropriate use criteria (AUC) for Mohs surgery. Please see Mohs map for details. Alternate therapeutic options were discussed on several occasions prior to surgery. After informed consent was obtainedand appropriate instruction was provided, the patient underwent tumor extirpation by the Mohs freshtissue technique as follows: PROCEDURE - INITIAL STAGE: Patient position: supine Anesthesia: 1% lidocaine with epinephrine 1:100,000 local infiltration Prep: Chlorhexidine The patient was brought to the operative suite. The lesion was identified and was prepped in a sterile fashion. The area was infiltrated with lidocaine/epinephrine to achieve complete anesthesia and to augment hemostasis. An initial beveled excision was performed to the subcutis with a scalpel blade and tissue scissors as indicated. Four hashes were created in the specimen and within the adjacentepidermis for marking purposes. The Mohs specimen was excised in a sharp manner, and carefully placed in proper orientation on the surgical tray. Hemostasis of the operative wound was obtained with careful spot electrocoagulation. A sterile non-adherent dressing was applied to the operative wound. The Mohs tissue specimen was carefully transferred to the lab where the tissue was divided, and color inked for orientation. The specimens were mapped and handed personally to the medication reconciliation technician for frozen sectioning. The tissue was embedded so that the deep and surface margins lay in the same plane, and sections were made through this plane. All specimens were then evaluated histologically by me. Stage 1 findings: Wound Depth subcutis Sections Created 5 Number of Sections Containing Tumor 0 With the patient clear of microscopic tumor, surgery was considered complete. Postoperative Wound Size: 3.7 x 2.4 cm Final Diagnosis: melanoma in situ Final Procedure: Mohs micrographic surgery Blood Loss: minimal Operative Time: 30 minutes Complications: None Note: none Note: MART-1 (Melanoma Antigen Recognized by T-cells) antibody immunostaining was used during Mohs surgery as per standard protocol, in addition to routine processing of all specimens with hematoxylin and eosin. The peripheral margins/edges and center were processed with the MART-1 stain (5 specimens total). The patient was informed of the procedure and its risk/benefits during the consent for the procedure. Additionally, prior to initiating Mohs surgery, the residual melanocytic lesion was removed and sent to pathology for further characterization, including possible invasion or depth of invasion, of the original lesion for prognostic purposes. It was not sent for margin evaluation. This tissue was not sent out from Mohs surgery and therefore was not part of the procedure. One or more of the reagents used in immunohistochemical testing in this case may not have been cleared or approved by the U.S. Food and Drug Administration (FDA). The FDA has determined that such clearance or approval is not necessary. These tests are used for clinical purposes. They should not be regarded as investigational or for research. These reagents' performance characteristics have been determined by [facility]. This laboratory is certified under the Clinical Laboratory Improvement Amendments of 1988 (CLIA-88) as qualified to perform high complexity clinical laboratory testing. Repair: COMPLEX REPAIR Patient Information: Linda Sinha 66 y.o. female Referring Provider: Tal Cha Surgeon: Lena Mcqueen MD Building Maintenance Technician: Jackson Hickey MD; Mariangel Hill MD Preoperative Diagnosis: melanoma in situ Preoperative Procedure: Complex Linear Closure Wound Location: left cheek Wound Dimensions: 3.7 cm x 2.4 cm INDICATIONS: The patient presents with an operative wound following tumor removal. After careful consideration and discussion of all repair options, it was determined that, given the location and nature of the defect, a multilayered complex linear closure offered the best chance for preservation of normal anatomic and functional relationships. Alternate options were discussed and the patient was encouraged toask questions, which, I believe, were answered appropriately. Informed consent was obtained in writing. After informed consent was obtained and appropriate instruction was provided, the patient underwent operative repair as follows. PROCEDURE: Patient Position: supine Anesthesia: 1% lidocaine with epinephrine 1:100,000 local infiltration Prep: Chlorhexidine The Mohs operative defect was identified, and the area was infiltrated with lidocaine/epinephrine to achieve complete anesthesia and to augment hemostasis. The area was prepped in the usual sterile fashion and was draped with sterile drapes. A linear closure was designed with care to place the operative repair within functional and cosmetic lines to minimize the postoperative distortion of normaltissues. The wound edges were prepared using a # 15 scalpel blade to precisely delineate the operative repair and were then extensively undermined with combined blunt and, as needed, sharp dissectiontaking great care to avoid functionally important vessels and nerves. Undermining was carried out at the level of the subcutaneous fat. Hemostasis of the operative wound was obtained with careful spot electrocoagulation, and ligature as indicated. The wound edges were then approximated using 5.0 Vicryl (polyglactin 910) buried interrupted sutures at the level of the subcutis and dermis. The epidermis was then approximated using 6.0 Fast absorbing plain gut. The final wound length was 7.5 cm Final Diagnosis: Defect following microscopically controlled excision. Final Procedure: Complex linear closure Blood Loss: minimal Operative Time: 30 minutes Complications: none Note: none Post-op Antibiotics: None Post-op Pain Control: None Attestation statement: I saw and examined the patient with the resident/fellow. I agree with the findings and plan of care documented in the resident's/fellow's note. I personally performed the Mohs procedure and was assisted by Drs. Hickey and Santi. I also performed the repair, and was assisted by Dr. Hickey who placed several buried sutures under my supervision. I was present for the crespo and critical components of the operative procedure and immediately available throughout. Lena Mcqueen MD MOHS SURGERY - POSTOP SUMMARY for MOHS with MART-1 IMMUNOSTAINS Linda Sinha is a 66 y.o. year old female who underwent Mohs surgery today 08/23/2016. The followingis a summary of the operative findings: Lesion 1 melanoma in situ Location left cheek Size Preop (cm) 2.2 x 1.7 cm Size Postop (cm) 3.7 x 2.4 cm Stages 1 Depth of Excision subcutis Repair complex linear repair Clinical Photography: Ms. Sinha was discharged from the operative suite in good condition. She was carefully instructed in postoperative wound care both verbally and in writing. All sutures used were absorbable, so there is no need to return for suture removal. She will return to clinic on 08/30/16 for a wound check. Thepatient will return for follow up with either a provider at [facility] or [facility] (she prefers to transfer care to [facility]) for her annual skin examinations. I thank Dr. Cha for involving me in this nice patient's care. Lena Mcqueen MD Dermatology & Mohs Blood TyperSpeech Language Pathology Assistantsenior corporate recruiter, Dermatology Division [facility] 08/23/2016 documented in this encounter Plan of Treatment Scheduled Orders Name Type Priority Associated Diagnoses Orde r Schedule SURGICAL PATHOLOGY- ORDER ONLY Pathology Routine Melanoma in situ of cheek (CMS-HCC) (H[facility]) Ordered: 08/23/2016 documented as of this encounter Procedures Procedure Name Priority Date/Time Associated Diagnosis Comments SURGICAL PATHOLOGY Routine 08/23/2016 13 :08 EDT documented in this encounter Results * SURGICAL PATHOLOGY (08/23/2016 13:08 EDT) Pathology Report: SURGICAL PATHOLOGY REPORT Reports generated via electronic interface contain original data; however they are lacking the format of the original report. Caution should be taken when reading/interpret ing unformatted reports. Name: ? LINDA SINHA ? Accession #: ? [id number] ? : ? 1950 (Age: 66) ??F ? Collect Date: ? 08/23/2016 ? Location: ? DERM ? Receive Date: ? 08/23/2016 ? Provider: LENA MCQUEEN MD Copy to: MARIANGEL HILL MD ? Final Pathologic Diagnosis: SKIN OF CHEEK, LEFT, CENTRAL DEBULKING SECTION OF MOHS STAGED EXCISION: - Malignant melanoma, in situ (lentigo maligna) (AJCC: pTis, pNX). ??See comment. - Anatomic (Andrew) level: ??I. - Associated nevus: ??Not identified. - Features of regression: ??Not identified. - Margins of excision: Not applicable. - Epidermal reparative change and dermal scar. Comment: Within the central debulking specimen is extensive melanoma in situ. ??The lesion has a complex architecture, but no definitive invasion. The margins for this specimen are non-applicable as the margins were evaluated at the time of Mohs micrographic surgery. ??(Dr. Flores)/ljkeyshawn Document reviewed and electronically signed by: RAMONA FLORES MD Report ??Date: 08/24/2016 14:03 By the signature above, the attending physician certifies that he/she has personally conducted a gross and/or microscopic examination of the described specimens and rendered or confirmed the above diagnosis. Specimen(s) Received: Left cheek Clinical History: Mohs debulking specimen of MIS on left cheek; evaluate depth of invasion; clinical diagnosis code: ??D03.39 Gross Description: ? Received in formalin labelled with proper patient identification (initials S, M) and left cheek is an unoriented excision of right vazquez-white to vazquez-brown skin (2.1 x 1.8 cm and is excised to a depth of 0.2 cm). There is a full thickness defect that goes from the center to the peripheral that measures 1.1 x 0.5 cm. The margins are inked blue. The specimen is serially sectioned and entirely submitted in 1-3. Mihr Ali 08/23/2016 4:33 PM End of Report [facility] 08/23/2016 13:0 8 EDT 08/23/2016 13:08 EDT Lena Mcqueen MD PATHOLOGY DOMINIK UNGER [facility] Organization Address City/State/ZIP Co de Phone Number [facility] [address] [place] [address] documented in this encounter Visit Diagnoses Diagnosis Melanoma in situ of cheek (HCC-CMS)- Primary Malignant melanoma of skin of other and unspecified parts of face documented in this encounter Care Teams Lollypop Machine Operator Relationship Specialty Start Date End Date Tawanna Kelly FNP PCP - General 08/23/16 01/03/17 documented as of this encounter
--- OUTSIDE RECORDS SUMMARY | 2023-12-30 18:41 | XMS_ITS | Encounter Summary ---
Author Organization Formerly [facility] Address One [facility] [place] [address] Care Team Providers Care Insurance Marketing Specialist Name Role Phone Crystal Howell APRN Primary Care Provider [phone] Encounter Details Date Type Department Care Team (Latest Contact Info) Description 09/17/2023 Travel Social History Tobacco Use Types Packs/Day [...] on filedocumented in this encounter Care Teams Insurance Marketing Specialist Relationship Specialty Start Date End Date Crystal Howell APRN [address] [place] [address] PCP - General Family Medicine 02/27/17 documented as of this encounter
--- OUTSIDE RECORDS SUMMARY | 2023-12-30 18:41 | XMS_ITS | Encounter Summary ---
Author Organization [facility] Address [address] [place] [address] Care Team Providers Care Flavor Extractor Name Role Phone Mariam Hernandez MD Primary Care Provider [phone] Encounter Details Date Type Department Care Team (Late st Contact Info) Description 01/10/2017 Orders Only [facility] Dermatology 3rd Floor [facility] [address] [place], [place] [address] Mervat Melo MD PhD [address] [place] [address], [address] [place] [address] Neck mass (Primary Dx) Social History Tobacco Use Types Packs/Day Years [...] No 08/23/2016 documented as of this encounter Plan of Treatment Not on file documented as of this encounter Results * (ABNORMAL) COMPREHENSIVE METABOLIC PANEL (CMP) (01/15/2017 7:33 EDT) [facility] Signature Potassium 4.6 3.5 - 5.0 mEq/L 01/15/2017 8:15 [facility] Sodium 142 136 - 145 mEq/L 01/15/2017 8:15 [facility] Chloride 102 96 - 110 mEq/L 01/15/2017 8:15 [facility] CO2 27 22 - 32 mEq/L 01/15/2017 8:15 [facility] Total Alkaline Phosphatase 85 38 - 126 U/L 01/15/2017 8:15 [facility] Bilirubin, Total 0.6 <1.4 mg/dl 01/16/20 17 8:15 [facility] AST 33 15 - 46 U/L 01/15/2017 8:15 [facility] ALT 46 <53 U/L 01/15/2017 8:15 [facility] Albumin 4.6 3.4 - 4.9 g/dl 01/15/2017 8:15 [facility] Total Protein 7.8 6.3 - 8.2 g/dl 01/15/2017 8:15 [facility] Creatinine 0.60 0.52 - 1.04 mg/dl 01/15/2017 8:15 [facility] GFR, Calculated 94 >60 ml/min/1.7 3m2 01/15/2017 8:15 [facility] Comment: eGFR calculated using CKD-EPI equation for non Americans. Multiply eGFR by 1.16 for Americans. BUN 23 10 - 26 mg/dl 01/15/2017 8:15 [facility] Calcium 10.3 8.5 - 10.5 mg/dl 01/15/2017 8:15 [facility] Calculated Calcium 9.8 8.5 - 10.5 mg/dl 01/15/2017 8:15 [facility] Glucose, Serum 160(H) 70 - 100 mg/dl 01/15/2017 8:15 [facility] Comment:Performed at [facility], [place], [place] Fasting? No 01/15/2017 7:29 [facility] Blood specimen (specimen) BLOOD SPECIMEN / Unknown 01/15/2017 7:33 EDT 01/15/2017 7:45 EDT eMrvat Melo MD PhD CHEMISTRY & BLOOD GAS ORDERABLES [facility] [address] [place] [address] documented in this encounter Visit Diagnoses Diagnosis Neck mass- Primary Swelling, mass, or lump in head and neck documented in this encounter Care Teams Flavor Extractor Relationship Specialty Start Date End Date Mariam Hernandez MD [address] [place] [address] PCP - General 01/04/17 07/17/17 documented as of this encounter
--- OUTSIDE RECORDS SUMMARY | 2023-12-30 18:41 | XMS_ITS | Encounter Summary ---
Author Organization [facility] Address [facility] [place] [address] Care Team Providers Care Stock Pitcher Name Role Phone Crystal Howell APRN Primary Care Provider [phone] Encounter Details Date Type Department Care Team (Late st Contact Info) Description 09/13/2022 3:15 PM EDT Office Visit Dermatology at [facility] [address] [place] [address] Aubree Holland MD [facility] [place] [place] [address] History of melanoma in situ; Multiple benign nevi; Seborrheic keratosis; Skin cancer screening; Tick bite of abdominal wall, initial encounter; Dermatofibroma; Green angioma; Lentigines Social History Tobacco Use Types Packs/Day Years Used Date Smoking Tobacco: Never Smokeless Tobacco: Never Alcohol Use Standard Drinks/Week Comments Yes 0 (1 standard drink = 0.6 oz pur e alcohol) 3 drinks weekly Sex and Gender Information Value Date Recorded Sex Assigned at Not on file Gender Identity Not on file Sexual Orientation Not on file documented as of this encounter Progress Notes * Aubree Holland MD - 09/13/2022 3:15 PM EDT Images from the original note were not included. DEPARTMENT OF DERMATOLOGY Medical Dermatology Clinic Provider: Aubree Holland MD Patient's preferred name Em Preferred contact method for results []myDH []Letter []Phone: Detailed phone message OK? Are there any other people with whom we may discuss your care? PAST MEDICAL HISTORY If no, type N. If yes, type date, location, treatment Melanoma 07/2016:??Left??cheek, MIS??- s/p Mohs at??[facility] 08/2016 Dysplastic nevi N SCC N BCC N AKs N Other relevant past medical history (i.e. 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 If yes, include details below Allergy to lidocaine, epinephrine, Dermabond, chlorhexidine, or adhesives: Bleeding disorder or blood thinners: Pacemaker, defibrillator, deep brain stimulator, cochlear implant: History of Present Illness: Em Dickerson is a 72 y.o. year old. Patient returns to clinic today fora full skin exam, She has not noted any other new, growing, changing, bleeding, painful or otherwise symptomatic moles or other lesions. She has not noted any other changes in any preexisting lesions. Last visit at [facility] Derm: 05/22/2022 Last visit with this provider: Visit date not found Medications: Reviewed in eD-H Allergies: Reviewed in eD-H Skin Examination: Full skin examination: Patient asked to undress to their comfort level. Verbalized that the provider's preference is that patient removal all clothing and that the provider will not examine areas patient elects to keep covered. Examination of the scalp, hair, head, face, ears, neck, chest, axillae,abdomen, back, buttocks, and upper and lower extremities.Genitalia was not examined. Assessment/Plan # Tick bite - pink heme crusted papule on the abdomen - tick removed 1 week ago, not engorged - patient instructed to monitor the lesion and call for any changes including fever, joint aches, head aches, and the appearance of a red ring around the bite area (bulls eye rash) that my indicateLyme Disease. Patient will call if any symptoms occur and we can send in a prescription for doxycycline if needed # Dermatofibroma - Firm papule, centrally raised and sclerotic, with peripheral hyperpigmentation and dimpling with lateral pressure on the right calf. - Discussed that these are benign fibrous (scar-like) lesions. No treatment necessary. # Solar lentigines - 0.3-0.6cm light-brown evenly pigmented, well-demarcated macules in a photodistributed pattern on the face, trunk and extremities. - Recommend diligent sun protection (hats/shade/clothing/sunscreen) - Discussed warning signs of skin cancer # Seborrheic keratoses - few vazquez/brown waxy stuck-on papules and plaques on the trunk and extremities. - Reassured of the benign nature of these lesions - No treatment needed # Melanocytic nevi - few scattered medium-brown macules and papules on the head, trunk, and extremities. - Morphology reassuring for benign nevi. - Reassured of benign appearance on exam today. - Reviewed warning signs of skin cancer - Recommend daily sun protection with protective clothing and SPF 30+ # Green angiomas - scattered on the trunk and extremities are few bright red smooth papules. - Reassured of the benign nature of these lesions. No treatment needed. # History of MIS - well healed scar on the left cheek. - no evidence of recurrence - continue yearly skin cancer screenings ?? RTC: 1 year for full skin exam, sooner as needed []Note routed to guidance secretary [x]Recall has been placed in scheduling system []Appointment scheduled at checkout Scribe attestation: Nancy Fields CMA who has performed the documentation for this encounter in the presence of and acting as a scribe for Aubree Holland MD. I performed the above scribed service and agree with the accuracy of the documentation in this encounter. Reviewed and signed by: Aubree oHlland MD Dermatology [facility] documented in this encounter Plan of Treatment Not on file documented as of this encounter Visit Diagnoses Diagnosis History of melanoma in situ Personal history of malignant melanoma of skin Multiple benign nevi Benign neoplasm of skin, site unspecified Seborrheic keratosis Other seborrheic keratosis Skin cancer screening Screening for malignant neoplasm of the skin Tick bite of abdominal wall, initial encounter Dermatofibroma Benign neoplasm of skin, site unspecified Green angioma Nevus, non-neoplastic Lentigines Other dyschromia documented in this encounter Care Teams Stock Pitcher Relationship Specialty Start Date End Date Crystal Howell APRN [address] [place] [address] PCP - General Family Medicine 02/27/17 documented as of this encounter
--- OUTSIDE RECORDS SUMMARY | 2023-12-30 18:41 | XMS_ITS | Encounter Summary ---
Author Organization [facility] Address [address] [place] [address] Care Team Providers Care Senior Business Manager Name Role Phone Robin Tawanna NELLIE Primary Care Provider [phone] Mariam Hernandez MD Primary Care Provider [phone] Crystal Howell APRN Primary Care Provider [phone] Reason for Visit * Reason Onset Date Comments New Patient Visit 11/12/2016 Encounter Details Date Type Department Care Team (Late st Contact Info) Description 11/12/2016 Telephone [facility] Cardiology [place] [address] [place] [address] Unknown, Doctor New Patient Visit Social History Tobacco Use Types Packs/Day Years [...] No 08/23/2016 documented as of this encounter Miscellaneous Notes * Telephone Encounter - Sonia David - 11/12/2016 1109 EDT Done. * Telephone Encounter - Betsey Rodríguez - 11/12/2016 1102 EDT Reason for Call: New Patient Visit Summary/Symptoms: [facility] sent referral for NPV on 11/08/16. Patient has decided to go elsewhere, disregard referral Betsey Rodríguez 11/12/2016 11:02 documented in this encounter Plan of Treatment Not on file documented as of this encounter Visit Diagnoses Not on filedocumented in this encounter Care Teams Senior Business Manager Relationship Specialty Start Date End Date Tawanna Kelly FNP PCP - General 08/23/16 01/03/17 Mariam Hernandez MD [address] [place] [id number] PCP - General 01/04/17 07/17/17 Crystal Howell APRN [address] [address] PCP - General 07/18/17 documented as of this encounter
--- OUTSIDE RECORDS SUMMARY | 2023-12-30 18:41 | XMS_ITS | Encounter Summary ---
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 Neck mass (Primary Dx) Social History Tobacco [...] Procedure Name Priority Date/Time Associated Diagnosis Comments COMPREHENSIVE METABOLIC PANEL (CMP) Routine 01/15/2017 7:33 EDT Neck mass documented in this encounter Results * (ABNORMAL) COMPREHENSIVE METABOLIC PANEL (CMP) (01/15/2017 7:33 EDT) Potassium 4.6 3.5 - 5.0 mEq/L 01/15/2017 8:15 [facility] Sodium 142 136 - 145 mEq/L 01/15/2017 8:15 [facility] Chloride 102 96 - 110 mEq/L 01/15/2017 8:15 [facility] CO2 27 22 - 32 mEq/L 01/15/2017 8:15 [facility] Total Alkaline Phosphatase 85 38 - 126 U/L 01/15/2017 8:15 [facility] Bilirubin, Total 0.6 <1.4 mg/dl 01/16/20 17 8:15 [facility] AST 33 15 - 46 U/L 01/15/2017 8:15 [facility] ALT 46 <53 U/L 01/15/2017 8:15 [facility] Albumin 4.6 3.4 - 4.9 g/dl 01/15/2017 8:15 [facility] Total Protein 7.8 6.3 - 8.2 g/dl 01/15/2017 8:15 [facility] Creatinine 0.60 0.52 - 1.04 mg/dl 01/15/2017 8:15 [facility] GFR, Calculated 94 >60 ml/min/1.7 3m2 01/15/2017 8:15 [facility] Comment: eGFR calculated using CKD-EPI equation for non Americans. Multiply eGFR by 1.16 for Americans. BUN 23 10 - 26 mg/dl 01/15/2017 8:15 [facility] Calcium 10.3 8.5 - 10.5 mg/dl 01/15/2017 8:15 [facility] Calculated Calcium 9.8 8.5 - 10.5 mg/dl 01/15/2017 8:15 [facility] Glucose, Serum 160(H) 70 - 100 mg/dl 01/15/2017 8:15 [facility] [place], [place] Fasting? No 01/15/2017 7:29 [facility] Blood specimen (specimen) BLOOD SPECIMEN / Unknown 01/15/2017 7:33 EDT 01/15/2017 7:45 EDT Mervat Melo MD PhD CHEMISTRY & BLOOD GAS ORDERABLES [facility] [address] [place] [address] documented in this encounter Visit Diagnoses Diagnosis Neck mass- Primary Swelling, mass, or lump in head and neck documented in this encounter Care Teams Motor And Generator Brush Maker Relationship Specialty Start Date End Date Mariam Hernandez MD [address] [place] [address] PCP - General 01/04/17 07/17/17 documented as of this encounter
--- OUTSIDE RECORDS SUMMARY | 2023-12-30 18:41 | XMS_ITS | Encounter Summary ---
Author Organization [facility] [place] [address] Care Team Providers Care Hockey Player Name Role Phone Crystal Howell APRN Primary Care Provider [phone] Reason for Visit * Diagnostic Test (Routine) - Closed Specialty Diagnoses / Procedures Referred By Haseeb messina Referred To Contact Radiology Diagnoses Paresthesias Procedures MRI Lumbar Spine wo Contrast (Generic) Mariam Hernandez MD [address] [place] [address] [place] [address] Referral ID Status Reason Start Date Expiration Date V isits Requested Visits Authorized [id number] Closed Specialty Service Requested 03/14/2023 09/11/2024 1 1 Encounter Details Date Type Department Care Team (Latest Contact Info) Description 03/15/2023 2:38 PM EST - 03/15/2023 11:59 PM EST Hospital [place] [address] Mariam Hernandez MD [address] [place] [address] Discharge Disposition: Home Social History Tobacco Use Types Packs/Day Years Used Date Smoking Tobacco: Never Smokeless Tobacco: Never Alcohol Use Standard Drinks/Week Comments Yes 0 (1 standard drink = 0.6 oz pur e alcohol) 3 drinks weekly Sex and Gender Information Value Date Recorded Sex Assigned at Not on file Gender Identity Not on file Sexual Orientation Not on file documented as of this encounter Medications at Time of Discharge Medication Sig Dispensed Refills Start Date End Date fluticasone propionate (FLONASE) 50 mcg/actuation Jennings, Suspension SHAKE LIQUID AND USE 1 SPRAY IN EACH NOSTRIL TWICE DAILY 11/15/2020 [employer] ORAL Take 2 tablets by mouth nightly as needed. Actually take CBD Oil 09/17/2023 documented as of this encounter Plan of Treatment Not on file documented as of this encounter Procedures Procedure Name Priority Date/Time Associated Diagnosis Comments MRI LUMBAR SPINE WITHOUT CONTRAST Routine 03/15/2023 4:41 PM EST Paresthesias documented in this encounter Results * MRI Lumbar Spine wo Contrast (Generic) (03/15/2023 4:41 PM EST) Anatomical Region Laterality Modality L-spine Magnetic Resonan ce Impressions 03/17/2023 9:46 AM EST [id number] degenerative changes as outlined above. Comment: The following findings are so common in people without low back pain that while we report their presence, they must be interpreted with caution and in context of the clinical situation (Reference- Tkvik Et Al, Spine 2001). Findings: (Prevalence in patients without low back pain), disc degeneration (decreased T2 signal, height loss, bulge) (91%), disc T2-signal loss (83%), disc height loss (56%), disc bulge (64%), disc protrusion (32%), annular fissure (38%). Thank you for letting us participate in the care of this patient. ??If you are a health care provider and have any questions regarding this report, please contact the number below. ??For patients who have questions please contact the health plant care worker that requested your imaging first. ? Electronically signed by: Lonnie Mcclendon MD, [facility] ([phone]), at 03/17/2023 9:46 AM Narrative 03/17/2023 9:46 AM EST EXAMINATION: MRI LUMBAR SPINE WO CONTRAST (GENERIC) CLINICAL HISTORY: parathesias TECHNIQUE: MRI of the lumbar spine performed without intravenous contrast administration. COMPARISON: Lumbar spine MRI 09/17/2011 FINDINGS: No retroperitoneal masses are identified. Mild anterolisthesis of L3 on L4 4 is noted, degenerative. Marrow signal intensity is remarkable only for degenerative disease. A normal-appearing conus terminates at the L1-2 level. T12-L1 reveals no significant canal or foraminal stenosis. L1-L2 is normal. L2-L3 reveals hypertrophic facet disease bilaterally worse on the left and right. Disc bulge is noted. Narrowing of the left subarticular recess is seen. The right intervertebral foramen is patent. L3-L4 demonstrates moderate spinal stenosis due to facet arthropathy, ligamentum flavum redundancy relatively short pedicles and a disc bulge. Subarticular narrowing is mild bilaterally. L4-L5 reveals loss of disc height, short pedicles, facet arthropathy and intervertebral disc bulge with osteophyte. Mild bilateral subarticular narrowing is noted. The spinal canal shows mild narrowing. L5-S1 demonstrates moderately severe facet arthropathy but no significant canal or foraminal stenosis. No herniation. Procedure Note Lonnie Mcclendon MD - 03/17/2023 EXAMINATION: MRI LUMBAR SPINE WO CONTRAST (GENERIC) CLINICAL HISTORY: parathesias TECHNIQUE: MRI of the lumbar spine performed without intravenous contrastadministration. COMPARISON: Lumbar spine MRI 09/17/2011 FINDINGS: No retroperitoneal masses are identified. Mild anterolisthesis of L3 on L44 is noted, degenerative. Marrow signal intensity is remarkable only fordegenerative disease. A normal-appearing conus terminates at the L1-2 level. T12-L1 reveals no significant canal or foraminal stenosis. L1-L2 is normal. L2-L3 reveals hypertrophic facet disease bilaterally worse on the leftand right. Disc bulge is noted. Narrowing of the left subarticular recess isseen. The right intervertebral foramen is patent. L3-L4 demonstrates moderate spinal stenosis due to facet arthropathy,ligamentum flavum redundancy relatively short pedicles and a disc bulge.Subarticular narrowing is mild bilaterally. L4-L5 reveals loss of disc height, short pedicles, facet arthropathy and intervertebral disc bulge with osteophyte. Mild bilateral subarticularnarrowing is noted. The spinal canal shows mild narrowing. L5-S1 demonstrates moderately severe facet arthropathy but no significantcanal or foraminal stenosis. No herniation. IMPRESSION [id number] degenerative changes as outlined above. Comment: The following findings are so common in people without low backpain that while we report their presence, they must be interpreted with cautionand in context of the clinical situation (Reference- Tkvik Et Al, [id number]). Findings: (Prevalence in patients without low back pain), discdegeneration (decreased T2 signal, height loss, bulge) (91%), disc T2-signal loss(83%), disc height loss (56%), disc bulge (64%), disc protrusion (32%), annularfissure (38%). Thank you for letting us participate in the care of this patient. If youare a health care provider and have any questions regarding this report,please contact the number below. For patients who have questions please contactthe health plant care worker that requested your imaging first. Mariam Hernandez MD IMG MRI ORDERABLES documented in this encounter Visit Diagnoses Not on filedocumented in this encounter Care Teams Hockey Player Relationship Specialty Start Date End Date Crystal Howell APRN [address] [place] [address] PCP - General Family Medicine 02/27/17 documented as of this encounter
--- OUTSIDE RECORDS SUMMARY | 2023-12-30 18:41 | XMS_ITS | Encounter Summary ---
Author Organization [facility] Address [address] [place] [address] Care Team Providers Care Blood Donor Recruiter Name Role Phone Mariam Hernandez MD Primary Care Provider [phone] Encounter Details Date Type Department Care Team (Late st Contact Info) Description 01/11/2017 Orders Only [facility] Dermatology 3rd Floor [facility] [address] [place] [address] Mervat Melo MD PhD [address] [place] [address], [address] [place] [address] Neck mass (Primary Dx) Social [...] as of this encounter Visit Diagnoses Diagnosis Neck mass- Primary Swelling, mass, or lump in head and neck documented in this encounter Care Teams Blood Donor Recruiter Relationship Specialty Start Date End Date Mariam Hernandez MD [address] [place] [address] PCP - General 01/04/17 07/17/17 documented as of this encounter
--- OUTSIDE RECORDS SUMMARY | 2023-12-30 18:41 | XMS_ITS | Encounter Summary ---
Author Organization [facility] Address [address] [place] [address] Care Team Providers Care Deep Submergence Vehicle Operator Name Role Phone Unavailable Primary Care Provider Unavailabl e Encounter Details Date Type Department Care Team (Late st Contact Info) Description 04/24/2011 Results Only [facility] Laboratory Services - [facility] ([facility] [address] [place] [address] Radha Nunez, SUSANA Social History Tobacco Use Types Packs/Day Years Used Date Smoking Tobacco: Never Assessed Sex and Gender Information Value Date Recorded Sex Assigned at Not on file Gender Identity Not on file Sexual Orientation Not on file documented as of this encounter Plan of Treatment Not on file documented as of this encounter Procedures Procedure Name Priority Date/Time Associated Diagnosis Comments PAP TEST- RESULT ONLY Routine 04/24/2011 0:00 EST documented in this encounter Results * PAP TEST- RESULT ONLY (04/24/2011 0:00 EST) Pathology Report: CYTOPATHOLOGY REPORT Reports generated via electronic interface contain original data; however they are lacking the format of the original report. Caution should be taken when reading/interpreti ng unformatted reports. Name: ? HANNAH DICKERSON ? Accession #: ? [id number] ? : ? 1950 (Age: 61) ??F ?Collect Date: ? 04/24/2011 ? Location: ? [facility] ? Receive Date: ? 04/25/2011 ? Provider: RADHA NUNEZ NP Copy to: COURTNEYELIZABETH ROTH LEGAL COORDINATOR ? Final Report SPECIMEN ADEQUACY ? Satisfactory for Evaluation - transformation zone component present - obscuring contamination, possibly lubricant GENERAL CATEGORIZATION ? Negative for Intraepithelial Lesion or Malignancy ?? Last Menstural Period: 1996 Other: Additional clinical information: 03/22/08 pap neg w/neg HPV Specimen/Source: ??Pap Test, Cervix/Endocervix, ThinPrep Imaging System with manual evaluation Document reviewed and electronically signed by: ? GRIS De La Cruz(ASCP) ? Report ??Date: 05/02/2011 11:20 HPV with Pap Test ? Date Ordered: ? 05/02/2011 ? Status: ?? Signed Out ?Date Complete: ? 05/07/2011 ? By: ??System Interface ? Date Reported: ? 05/07/2011 ? Interpretation RESULT: Negative for HPV types 16, 18, 31, 33, 35, 39, 45, 51, 52, 56, 58, 59, and 68. Comments Document reviewed and electronically signed by: ? System Interface ? Report date: 05/07/2011 By the signature above, the attending physician certifies that he/she has personally conducted a gross and/or microscopic examination of the described specimens and rendered or confirmed the above diagnosis. End of Report [facility] 04/24/2011 04/25/2011 Radha M Mayra CABLE BRAIDER PATHOLOGY ORDERABLES [facility] [address] [place] [address] documented in this encounter Visit Diagnoses Not on filedocumented in this encounter
--- OUTSIDE RECORDS SUMMARY | 2023-12-30 18:41 | XMS_ITS | Encounter Summary ---
Author Organization [facility] Address [address] [place] [address] Care Team Providers Care Vehicle Modification Technician Name Role Phone aMriam Hernandez MD Primary Care Provider [phone] Reason for Visit * Reason Onset Date Comments Discuss Surgery 01/21/2017 has questions ab out treatment before surgery Encounter Details Date Type Department Care Team (Late st Contact Info) Description 01/21/2017 Telephone [facility] Neurosurgery - [facility] [address], [place] [id number] Alex Aldridge MD [address] [facility], [address] [place] [address] Discuss Surgery (has questions about treatment before surgery) Social History Tobacco Use Types Packs/Day Years [...] encounter Miscellaneous Notes * Telephone Encounter - Krystin Owens - 01/22/2017 1042 EDT Contacted Em and discussed the following information: - Em scheduled to see Dr. Aldridge on 01/31/17 at 1:30pm to discuss surgical options and treatment - Em requested to reschedule her MRI Brain w/wo contrast since it's required [facility] a [facility] and [facility]. Her call was transferred to MRI so she could reschedule. - Discussed with Em that we will leave the CT and appointment on 03/[address] Aldridge and her surgery on 03/11/17 scheduled. Em will contact our office if she decides to seek treatment at a different facility. - Em requested that our office send referrals to [facility] and [facility]. She provided the following information for [facility]: Dr. Kevin Stockton Contact: Faustina, Em verbalized understanding of all information discussed and denied having any further questions. * Telephone Encounter - Ethan Wilkins RN - 01/22/[address] Aldridge about the gamma knife procedure. Dr. Aldridge and Dr. Clay stated they do a similar procedure here. This was relayed to the patient. She was told if she has further questions, she is welcome to come in to discuss surgery with Dr. Aldridge, per his advice. She stated she is waiting on a call about an MRI Aviation Maintenance Technician attempted to transfer patient to JULIO Perez, but she was helping other patients at that time. Will route to JULIO Mcclelland. Patient verbalized understanding. * Telephone Encounter - Bella Stratton - 01/21/2017 1201 EDT Patient would like a referral for a second opinion to [facility]. Fax number is [phone] Phone is [phone] * Telephone Encounter - Ethan Wilkins RN - 01/21/2017 1035 EDT Patient called to see if she was eligible for gamma knife procedure for a meningioma resection. This automobile service writer stated he had heard about this procedure, but was unsure if we utilize it. She is wonderingif: a) Does Dr. Aldridge utilize gamma knife b) It is available at [facility]? And C) is she eligible forthis procedure to remove the meningioma? Aviation Maintenance Technician stated he would speak with provider and call back. Patient verbalized understanding. * Telephone Encounter - Krystin Owens - 01/21/2017 1031 EDT Returned call to Em who requested to reschedule her MRI that is currently scheduled on 03/04/17. Em stated that she's having a difficult time waiting and would possibly like to move up her surgery date (currently scheduled on 03/11/2017). Discussed with Em that I would review Dr. Aldridge's clinic and surgery schedule with him and call her back. Em's call was transferred to the RN to discuss the surgery and treatment options. * Telephone Encounter - Kat Bowen - 01/21/2017 0935 EDT Reason for Call: Discuss Surgery (has questions about treatment before surgery) Summary/Symptoms: Patient has some questions about a Specific treatment and has several questions. Also expressed that she would like to talk to Krystin in scheduling as well Kat Bowen 01/21/2017 9:35 documented in this encounter Plan of Treatment Not on file documented as of this encounter Visit Diagnoses Not on filedocumented in this encounter Care Teams Vehicle Modification Technician Relationship Specialty Start Date End Date Maraim Hernandez MD [address] [place] [address] PCP - General 01/04/17 07/17/17 documented as of this encounter
--- OUTSIDE RECORDS SUMMARY | 2023-12-30 18:41 | XMS_ITS | Encounter Summary ---
Author Organization [facility] Address [address] [place] [address] Care Team Providers Care Flight Attendant/Inflight Supervisor Name Role Phone Mariam Hernandez MD Primary Care Provider [phone] Reason for Referral * Radiology Services (48 Hrs (Urgent)) - Closed Specialty Diagnoses / Procedures Referred By Contac t Referred To Contact Diagnoses Neck mass Procedures CT NECK (SOFT TISSUE) W CONTRAST Mervat Melo MD PhD [address] [place] [phone] Referral ID Status Reason Start Date Expiration Date Visits Re quested Visits Authorized [id number] Closed 01/11/2017 1 1 Encounter Details Date Type Department Care Team (Late st Contact Info) Description 01/11/2017 Orders Only [facility] Dermatology 3rd Floor [place] [id number] Mervat Melo MD PhD [address] [place] [phone] Neck mass (Primary Dx) Social History [...] No 08/23/2016 documented as of this encounter Ordered Prescriptions Prescription Sig Dispensed Refills Start Date End Da te methylPREDNISolone (MEDROL) 32 mg tablet Take one pill [address] and one pill 1.[address] 2 Tab 01/11/2017 documented in this encounter Progress Notes * Mervat Melo MD - 01/11/2017 1350 EDT Called patient and discussed plan of action. MARIFER Upton requires imaging prior to US guided FNA. Cytopathology attending was very kind and offered to coordinate timing such that cytopath FNA willbe scheduled just prior to CT so that the patient does not need to make [address] Harman recommends CT neck with contrast and pretreatment with methylprednisolone 32mg 12 hours prior to and 1.5 hours prior to imaging study. The patient is currently scheduled for 01/23. I am trying to get this moved up. If FNA by cytopath is unsuccessful, will pursue US-guided FNA by IR. The patient understands and agrees with the plan. Mervat Melo MD 01/11/2017 16:15 documented in this encounter Plan of Treatment Not on file documented as of this encounter Procedures Procedure Name Priority Date/Time Associated Diagnosis Comments CT NECK (SOFT TISSUE) W CONTRAST STAT 01/15/2017 9:10 EDT Neck mass documented in this encounter Results * CT NECK (SOFT TISSUE) W CONTRAST (01/15/2017 9:10 EDT) Anatomical Region Laterality Modality Other 01/15/2017 9:10 EDT 01/15/2017 10:53 EDT Narrative 01/15/2017 10:[address] NECK (SOFT TISSUE) W CONTRAST ??01/15/2017 9:10 AM SIGNS AND SYMPTOMS/COMMENTS: ?? R22.1-Localized swelling, mass and lump, neck-ICD-10; Neck mass, history of malignancy . TECHNIQUE: Axial contrast-enhanced images were obtained from the mid cranium to the superior mediastinum following IV contrast administration of 100 CC of 370 mg% non-ionic contrast. Multiplanar reformations were performed. COMPARISON: None. FINDINGS: Low density in the left temporal lobe likely represents reactive vasogenic edema. A hyperdense well circumscribed irregular mass is present in the left temporal recess adjacent to the bone. It measures 2.7 x 2.6 x 2.4 cm in maximum dimension and enhances after slightly heterogenously. A vessel appears to course over its interface with the brain parenchyma in the axial plane. This indicates it is likely a dural based mass. The underlaying bone demonstrates slight hypertrophic sclerotic change. ??No evidence of midline shift or herniation. The ventricles, cisterns, and sulci are normal in caliber and configuration. A metallic skin marker is present on the left lateral neck. There is no evidence of any mass or enlarged lymph node deep to this marker. The nasopharyngeal and oropharyngeal mucosal spaces are normal. The parapharyngeal fat planes are intact. The epiglottis is sharp. The preepiglottic fat is clear. The vocal cords are symmetric. The thyroid gland is normal. The bilateral parotid and submandibular glands enhance normally. Physiologically asymmetric jugular veins, with right larger than left. The visualized portions of the trachea and esophagus are normal. The lung apices are clear. There is no acute fracture or malalignment of the cervical spine. The temporal mandibular joints remain normal alignment. The paranasal sinuses are clear. IMPRESSION: 1. Dural-based enhancing mass in the left middle cranial fossa with adjacent edema in the left temporal lobe is almost certainly a meningioma. Recommend brain MRI with brain lab protocol for further characterization. 2. No evidence of mass or lymphadenopathy adjacent to the left lateral neck skin marker. I have personally reviewed the images and the above interpretation and agree with the findings. Procedure Note Ganesh Prieto - 01/15/2017 CT NECK (SOFT TISSUE) W CONTRAST 01/15/2017 9:10 AM SIGNS AND SYMPTOMS/COMMENTS: R22.1-Localized swelling, mass and lump, neck-ICD-10; Neck mass, history of malignancy . TECHNIQUE: Axial contrast-enhanced images were obtained from the mid cranium to the superior mediastinum following IV contrast administration of 100 CC of 370 mg% non-ionic contrast. Multiplanar reformations were performed. COMPARISON: None. FINDINGS: Low density in the left temporal lobe likely represents reactive vasogenic edema. A hyperdense well circumscribed irregular mass is present in the left temporal recess adjacent to the bone. It measures 2.7 x 2.6 x 2.4 cm in maximum dimension and enhances after slightly heterogenously. A vessel appears to course over its interface with the brain parenchyma in the axial plane. This indicates it is likely a dural based mass. The underlaying bone demonstrates slight hypertrophic sclerotic change. No evidence of midline shift or herniation. The ventricles, cisterns, and sulci are normal in caliber and configuration. A metallic skin marker is present on the left lateral neck. There is no evidence of any mass or enlarged lymph node deep to this marker. The nasopharyngeal and oropharyngeal mucosal spaces are normal. The parapharyngeal fat planes are intact. The epiglottis is sharp. The preepiglottic fat is clear. The vocal cords are symmetric. The thyroid gland is normal. The bilateral parotid and submandibular glands enhance normally. Physiologically asymmetric jugular veins, with right larger than left. The visualized portions of the trachea and esophagus are normal. The lung apices are clear. There is no acute fracture or malalignment of the cervical spine. The temporal mandibular joints remain normal alignment. The paranasal sinuses are clear. IMPRESSION: 1. Dural-based enhancing mass in the left middle cranial fossa with adjacent edema in the left temporal lobe is almost certainly a meningioma. Recommend brain MRI with brain lab protocol for further characterization. 2. No evidence of mass or lymphadenopathy adjacent to the left lateral neck skin marker. I have personally reviewed the images and the above interpretation and agree with the findings. Mervat Melo MD PhD IMG CT ORDERABLES documented in this encounter Visit Diagnoses Diagnosis Neck mass- Primary Swelling, mass, or lump in head and neck documented in this encounter Care Teams Flight Attendant/Inflight Supervisor Relationship Specialty Start Date End Date Mariam Hernandez MD [address] [place] [phone] PCP - General 01/04/17 07/17/17 documented as of this encounter
--- OUTSIDE RECORDS SUMMARY | 2023-12-30 18:41 | XMS_ITS | Encounter Summary ---
Author Organization [facility] Address [address] [place] [address] Care Team Providers Care Creative Guru Name Role Phone Mariam Hernandez MD Primary Care Provider [phone] Reason for Visit * Reason Onset Date Comments Eye Problem 01/25/2017 Encounter Details Date Type Department Care Team (Late st Contact Info) Description 01/25/2017 Telephone [facility] Neurosurgery - [address] [id number] Alex Aldridge MD [address] [place] [address], [address] [place] [address] Eye Problem Social History Tobacco Use Types Packs/Day Years [...] encounter Miscellaneous Notes * Telephone Encounter - Zuri Gann RN - 01/25/2017 1613 EDT Advised patient to contact her eye doctor immediately as flashes and/or floaters can be a symptoms of a detached retina. Patient agreed to call her provider right away. * Telephone Encounter - Shaila Felton - 01/25/2017 1606 EDT Patient is seeing flashing yellow lights in her peripheral vision on both sides. This has been going on for about a week and a half. documented in this encounter Plan of Treatment Not on file documented as of this encounter Visit Diagnoses Not on filedocumented in this encounter Care Teams Creative Guru Relationship Specialty Start Date End Date Mariam Hernandez MD [address] [place] [address] PCP - General 01/04/17 07/17/17 documented as of this encounter
--- OUTSIDE RECORDS SUMMARY | 2023-12-30 18:41 | XMS_ITS | Encounter Summary ---
Author Organization [facility] Address [address] [place] [address] Care Team Providers Care Family Law Specialist Name Role Phone Mariam Hernandez MD Primary Care Provider [phone] Reason for Visit * Reason Onset Date Comments Other 01/11/2017 Encounter Details Date Type Department Care Team (Late st Contact Info) Description 01/11/2017 Telephone [facility] Dermatology 3rd Floor [facility] [address] [place], [place] [id number] Mervat Melo MD PhD [address] [facility], [address] [place] [address] Other Social History Tobacco Use Types Packs/Day Years [...] encounter Miscellaneous Notes * Telephone Encounter - Xavier Eloisa - 01/14/2017 1011 EDT Spoke to patient and advised that at this time there is no FNA appointment needed because site is too small for imaging. Patient confirmed CT appointment tomorrow. No further action required at this time. Eloisa Park 01/14/2017 10:13 * Telephone Encounter - Eloisa Park - 01/14/2017 0916 EDT Spoke to patient and advised her of CT appointment scheduled for tomorrow at [facility] 8:30AM check in. Advised patient I am waiting on cytopathology for appointment time for FNA prior to CT if possible. Eloisa Park 01/14/2017 9:19 * Telephone Encounter - Nikole Langford - 01/14/2017 0844 EDT Called medicare at [phone] With CPT Code 06838. [employer] does NOT require authorization. Scan has been made for tomorrow at [facility] - check in at 8:30 for a 9 :00 am appointment. Reminder patient need to pre medicate due to IODINE allergy * Telephone Encounter - Jeanie Cleary - 01/11/2017 1202 EDT Patient calling to say the ultrasound orders were sent wrong; There was an error regarding contrastdye. She is allergic to dye for previous intravenous procedure (per pt, possibly iodine?). Please make change and resend order. * Telephone Encounter - Eloisa Park - 01/11/2017 0923 EDT Spoke to patient and advised that until her ultrasound has been scheduled no other action can be done. I transferred patient to radiology to follow up on referral and to get scheduled. I will then per Dr. Melo - After CT has been scheduled, please call cytopathology to schedule FNA BEFORE the CT (They are aware) [phone]. Let patient know to get labs drawn first thing when she arrives. Mervat Melo MD 01/10/2017 14:31 (Routing comment) Patient verbalized understanding and had no further questions at this time. Follow up on June has been pushed to 07/19/17 at 3:20PM. Patient confirmed. Eloisa Park 01/11/2017 9:25 * Telephone Encounter - Jeanie Cleary - 01/11/2017 0907 EDT Patient calling to check up on referral from Dr. Melo for fine needle ultrasound biopsy (for lump inneck to be aspirated). Patient wanted to be sure Dr. Melo was in communication with Dr. Marcell Aaron from Interventional Radiology to determine next steps. Also wanted to check if 04/06 appt was still available. Also wanted to push 06/07/17 appt to July. documented in this encounter Plan of Treatment Not on file documented as of this encounter Visit Diagnoses Not on filedocumented in this encounter Care Teams Family Law Specialist Relationship Specialty Start Date End Date Mariam Hernandez MD [address] [place] [phone] PCP - General 01/04/17 07/17/17 documented as of this encounter
--- OUTSIDE RECORDS SUMMARY | 2023-12-30 18:41 | XMS_ITS | Encounter Summary ---
Author Organization [facility] Address [address] [place] [address] Care Team Providers Care Electrical Logger Name Role Phone Mariam Hernandez MD Primary Care Provider [phone] Encounter Details Date Type Department Care Team (Late st Contact Info) Description 02/16/2017 11:39 EDT - 02/16/2017 23:59 EDT Hospital Encounter [address] [address] Alex Aldridge MD [address] [place] [address], [address] [place] [address] Discharge Disposition: Auto Discharge Social History Tobacco [...] No 01/15/2017 documented as of this encounter Discharge Diagnoses Diagnosis D32.9 Benign neoplasm of meninges, unspecified-D32.9[ICD-10-CM] documented in this encounter Medications at Time of Discharge Medication Sig Dispensed Refills Start Date End Date DIAZepam (VALIUM) 5 mg tablet Take 1 tab 45 min prior to the procedure and repeat immediately before if needed 2 Tab 02/06/2017 DIAZepam (VALIUM) 5 mg tablet Take 1 tablet by mouth. 1 Tab 08/23/2016 methylPREDNISolone (MEDROL) 32 mg tablet Take one pill [address] and one pill 1.[address] 2 Tab 01/11/2017 documented as of this encounter Discharge Disposition Disposition Code Departure Means Destination Auto Discharge Home documented in this encounter Plan of Treatment Not on file documented as of this encounter Visit Diagnoses Not on filedocumented in this encounter Care Teams Electrical Logger Relationship Specialty Start Date End Date Mariam Hernandez MD [address] [place] [phone] PCP - General 01/04/17 07/17/17 documented as of this encounter
--- OUTSIDE RECORDS SUMMARY | 2023-12-30 18:41 | XMS_ITS | Encounter Summary ---
Author Organization [facility] Address [facility] [place] [address] Care Team Providers Care Precision Machine Operator Name Role Phone Crystal Howell APRN Primary Care Provider [phone] Encounter Details Date Type Department Care Team (Late st Contact Info) Description 09/17/2023 2:30 PM EDT Office Visit Dermatology at [facility] [address] [place] [address] Aubree Holland MD [facility] [place] [address] Skin cancer screening; History of melanoma in situ; SK (seborrheic keratosis); Green angioma; Multiple benign melanocytic nevi of upper and lower extremities and trunk; Lentigines; Dermatofibroma Social History Tobacco Use Types Packs/Day Years [...] Progress Notes * Aubree Holland MD - 09/17/2023 2:30 PM EDT Images from the original note were not included. DEPARTMENT OF DERMATOLOGY Medical Dermatology Clinic Provider: Aubree Holland MD Patient's preferred name Em Preferred contact method for results [x]myDH []Letter []Phone: Detailed phone message OK? Y Are there any other people with whom we may discuss your care? PAST MEDICAL HISTORY If no, type N. 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 If yes, include details below Allergy to lidocaine, epinephrine, Dermabond, chlorhexidine, or adhesives: Bleeding disorder or blood thinners: Pacemaker, defibrillator, deep brain stimulator, cochlear implant: History of Present Illness: Em Dickerson is a 73 y.o. Patient returns to clinic today for a full skin exam with the following concerns: - No spots of concern today. Last visit at Dermatology: 09/13/2022 Last visit with this provider: 09/13/2022 Medications: Reviewed in eD-H Allergies: Reviewed in eD-H Skin Examination: Full skin examination: Patient asked to undress to their comfort level. Verbalized that the provider's preference is that patient remove all clothing and that the provider will not examine areas patient elects to keep covered. Examination of the scalp, hair, head, face, ears, neck, chest, axillae, abdomen, back, buttocks, and upper and lower extremities was normal with the exception of the findings below. Genitalia not examined. Assessment/Plan # Dermatofibroma - Firm papule, centrally raised and sclerotic, with peripheral hyperpigmentation and dimpling with lateral pressure on the right calf. - benign fibrous (scar-like) lesions. No treatment necessary. [...] recurrence - continue yearly skin cancer screenings Other: N/A RTC: 1 year for FSE or sooner as needed []Note routed to department secretary []Recall placed in scheduling system [x]Appointment scheduled at checkout Scribe attestation: Piper Caldwell [facility] has performed the documentation for this encounter in thepresence of and acting as a scribe for Aubree Holland MD. I performed the above scribed service and agree with the accuracy of the documentation in this encounter. Reviewed and signed by: Aubree Holland MD [facility] documented in this encounter Plan of Treatment Not on file documented as of this encounter Visit Diagnoses Diagnosis Skin cancer screening Screening for malignant neoplasm of the skin History of melanoma in situ Personal history of malignant melanoma of skin SK (seborrheic keratosis) Other seborrheic keratosis Green angioma Nevus, non-neoplastic Multiple benign melanocytic nevi of upper and lower extremities and trunk Lentigines Other dyschromia Dermatofibroma Benign neoplasm of skin, site unspecified documented in this encounter Care Teams Precision Machine Operator Relationship Specialty Start Date End Date Crystal Howell APRN [address] [place] [address] PCP - General Family Medicine 02/27/17 documented as of this encounter
--- OUTSIDE RECORDS SUMMARY | 2023-12-30 18:41 | XMS_ITS | Encounter Summary ---
Author Organization [facility] Address [address] [place] [address] Care Team Providers Care Powder Compounder Name Role Phone Tawanna Kelly NELLIE Primary Care Provider [phone] Reason for Visit * Reason Comments Suture / Staple Removal Encounter Details Date Type Department Care Team (Late st Contact Info) Description 08/30/2016 8:00 EDT Office Visit [facility] Dermatology 5th [address] [address] Unknown, Provider, Mervat Melo MD PhD [address] [facility], [address] [place] [address] Nursing Team, [facility] Dermatology Mohs Melanoma in situ of cheek (CMS-HCC) ([facility]-CMS) (Primary Dx); Encounter for postoperative wound check Discharge Disposition: Auto Discharge Social History Tobacco [...] No 08/23/2016 documented as of this encounter Patient Instructions * Patient Instructions* Libra Up - 08/30/2016 8:00 EDT [facility] DEPARTMENT OF DERMATOLOGY Instructions for Steri-Strips 1. Leave steri-strips in place until they fall off on their own. 2. Wash wound daily with soap and water. Pat dry. 3. Do not apply any oils, lotions, or sunscreens to the area while the steri- strips are still adhered to the wound. 4. Once all of the steri-strips are gone, you may resume your regular skin care routine, including washing with mild soap and water, applying moisturizer, makeup, and sunscreen. 5. If there are any open or bleeding areas at the scar/graft site you should begin to cover the area with a bandage daily as follows: ??? Clean and dry the area with plain tap water using a Q-tip or sterile gauze pad. ??? Apply vaseline ointment to any open areas. ??? Cover the wound with a band-aid or sterile non-stick gauze pad and tape. ??? Repeat the instructions above until the wound is completely healed. If the procedure required sutures, the suture line will be dark pink at first and the edges of the wound will be reddened. This will lighten up day by day and will be less tender. The suture line mayalso be firm, especially on the lip/chin area and will also fade with time. It may take up to 6-12 months for redness and firmness to fade. Numbness in the surgical area is expected. It might take 12-18 months for the feeling to return to normal. During this time, sensations of itchiness, tingling, and occasional sharp pains might be noted. These feelings are normal and will subside once the nerves have completely healed. Begin to massage the area 6 weeks after surgery. Massaging the area will help the scar soften and fade quicker. To massage, apply pressure directly and firmly over the scar with the fingertips and move lengthwise along the scar. Massage the area for up to 10 minutes several times a day. About 6-8 weeks after surgery it is not uncommon to see tender 'pimple-like' bumps along the scar. This is normal as the scar continues to mature and the stitches underneath the skin begin to dissolve. Do not pick or squeeze - this will resolve on its own. Should one break open producing a small amount of drainage, apply polysporin or bacitracin ointment a few times a day until it is completely healed. CONTACT THE OFFICE If the wound becomes increasingly red, warm to touch, increased pain, drainage with a foul odor, rapid swelling of the wound, and/or if you develop a fever or chills, please call our office immediately or . documented in this encounter Discharge Disposition Disposition Code Departure Means Destination Auto Discharge documented in this encounter Progress Notes * Libra Up - 08/30/2016 0800 EDT Images from the original note were not included. WOUND CARE VISIT CC: WOUND CARE Ms. 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 Lena Love. SUBJECTIVE: Patient reports that the wound site feels hard. OBJECTIVE: There were no vitals taken for this visit. Wound edges: well-approximated Wound site: pink along suture line; edema inferior to left eye Drainage: none PLAN: /MAIKEL/RN consulted: No Wound cleansed from center outward with normal saline and hibiclens Dressing: steristrips applied FOLLOW UP Patient advised to return to follow-up care on 01/10/[address] Mervat Melo as planned or sooner if concerned. Wound care instructions given to patient and family. Understanding verbalized by patient and family, no barriers to learning. Note: I was supervised by Dr. Mervat Melo who was present and immediately available in the office suite. 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
--- OUTSIDE RECORDS SUMMARY | 2023-12-30 18:41 | XMS_ITS | Encounter Summary ---
Author Organization [facility] Address [facility] [place] [address] Care Team Providers Care Locksmith Helper Name Role Phone Crystal Howell APRN Primary Care Provider [phone] Encounter Details Date Type Department Care Team (Late st Contact Info) Description 01/30/2022 [place] [id number] Brook Evans RN Social History Tobacco Use Types Packs/Day Years [...] * Telephone Encounter - Priti Chowdary - 02/01/2022 9:11 AM EDT Spoke to pt to confirm appt details Pt scheduled for 1 yr f/u on 02/22/22 MRI with sedation starts at 1030 am Ov with JPA at 120 pm No appt card needed Closing encounter. * Telephone Encounter - Lorenza Lawrence - 01/30/2022 4:32 PM EDT Rad request sent * Telephone Encounter - Priti Chowdary - 01/30/2022 11:28 AM EDT Lm for pt to gather time preferences to reschedule Mri and f/u with JPA. Screening questions are completed. Send rad request. * Telephone Encounter - Riya Call - 01/30/2022 9:10 AM EDT Images from the original note were not included. Reschedule MRI and appt with JPA canceled in December 2021. ~~~~~~~~~~~~~~~~~~~~~~~~~~~~~~~ Brook Evans RN P [facility] [place] Em called and would like to schedule the MRI and in person appointment with JPA please. Thank you Brook documented in this encounter Plan of Treatment Not on file documented as of this encounter Visit Diagnoses Not on filedocumented in this encounter Care Teams Locksmith Helper Relationship Specialty Start Date End Date Crystal Howell APRN [address] [place] [address] PCP - General Family Medicine 02/27/17 documented as of this encounter
--- OUTSIDE RECORDS SUMMARY | 2023-12-30 18:41 | XMS_ITS | Encounter Summary ---
Author Organization [facility] Address [address] [place] [address] Care Team Providers Care Javascript Engineer Name Role Phone Unavailable Primary Care Provider Unavailabl e Encounter Details Date Type Department Care Team (Late st Contact Info) Description 02/13/2005 Results Only [facility] - Maple conversion [address] [place] [address] Margarita [place], [facility] [address] [place] [phone] Social History Tobacco Use Types Packs/Day Years Used Date Smoking Tobacco: Never Assessed Sex and Gender Information Value Date Recorded Sex Assigned at Not on file Gender Identity Not on file Sexual Orientation Not on file documented as of this encounter Plan of Treatment Not on file documented as of this encounter Procedures Procedure Name Priority Date/Time Associated Diagnosis Comments CYTOPATHOLOGY Routine 02/13/2005 0:00 EDT documented in this encounter Results * CYTOPATHOLOGY (02/13/2005 0:00 EDT) Pathology Report: CYTOPATHOLOGY REPORT Reports generated via electronic interface contain original data; however they are lacking the format of the original report. Caution should be taken when reading/interpreti ng unformatted reports. Name: ? HANNAH DICKERSON ? Accession #: ? [id number] : ? 1950 (Age: 54) ??F ?Collect Date: ? 02/13/2005 Location: ? [facility] ? Receive Date: ? 02/15/2005 Provider: ?MARGARITA COLORADO RESEARCH ENGINEER MARINE EQUIPMENT Copy to: ? Specimen/Source: ?ThinPrep Pap Test, Cervix/Endocervix, processed on EdusonPrep Imaging System, with manual evaluation Last Menstrual Period: ? Other: ? HPVA - HPV testing requested if ASC-US on the current ThinPrep Pap test. ? SPECIMEN ADEQUACY ? Satisfactory for Evaluation - transformation zone component present - scant squamous epithelial component GENERAL CATEGORIZATION ? Negative for Intraepithelial Lesion or Malignancy ? Document reviewed and electronically signed by: ? GRIS De La Cruz(ASCP) ? Report Date: ??02/21/2005 13:30 End of Report JUSTINE CEVALLOS 02/13/2005 02/15/2005 Margarita Colorado RESEARCH ENGINEER MARINE EQUIPMENT PATHOLOGY ORDERABLES Performing Organization Address City/State/[facility] Co de Phone Number JUSTINE CEVALLOS [address] [place] [address] documented in this encounter Visit Diagnoses Not on filedocumented in this encounter
--- OUTSIDE RECORDS SUMMARY | 2023-12-30 18:41 | XMS_ITS | Encounter Summary ---
Author Organization [facility] Address [address] [place] [address] Care Team Providers Care Processor Inspector Name Role Phone Nicole Dang NP Primary Care Provider [phone] Reason for Visit * Reason Onset Date Comments Requesting Sooner Appointment 08/01/2016 MO HS Encounter Details Date Type Department Care Team (Late st Contact Info) Description 08/01/2016 Telephone [facility] Dermatology 3rd Floor [facility] [address] [place], [place] [address] Narayan Morin MD [address] [facility], [address] [place] [address] Requesting Sooner Appointment (MOHS) Social History Tobacco Use Types Packs/Day Years Used Date Smoking Tobacco: Never Assessed Sex and Gender Information Value Date Recorded Sex Assigned at Not on file Gender Identity Not on file Sexual Orientation Not on file documented as of this encounter Miscellaneous Notes * Telephone Encounter - Chantale Gregg - 08/03/2016 0903 EDT Patient has confirmed her appointment with Lena Love on 08/23/16 at 8:00 am. Notes are located in scanned media. * Telephone Encounter - Danica Padron - 08/01/2016 1232 EDT Patient stated she is feeling uneasy and concerned about waiting until 09/03/16 to have her MOHS (MISL Cheek) removed. She requested to speak with someone about the date, either seeking reassurance that it is not too far in the future or to see if it can be moved sooner. documented in this encounter Plan of Treatment Not on file documented as of this encounter Visit Diagnoses Not on filedocumented in this encounter Care Teams Processor Inspector Relationship Specialty Start Date End Date Nicole Dang, SUSANA [address] [place] [address] PCP - General 03/21/15 08/22/16 documented as of this encounter
--- OUTSIDE RECORDS SUMMARY | 2023-12-30 18:41 | XMS_ITS | Encounter Summary ---
Author Organization [facility] Address [address] [place] [address] Care Team Providers Care Underwriting Consultant Name Role Phone Mariam Hernandez MD Primary Care Provider [phone] Reason for Visit * Reason Onset Date Comments Discuss Test Results 02/18/2017 Encounter Details Date Type Department Care Team (Late st Contact Info) Description 02/18/2017 Telephone [facility] [address] [place], [place] [id number] Alex Aldridge MD [address] [place] [address], [address] [place] [address] Discuss Test Results Social History Tobacco Use Types Packs/Day [...] encounter Miscellaneous Notes * Telephone Encounter - RomanSanjeeven - 02/19/2017 1548 EDT Returned call to Em to discuss her upcoming appointment on 03/05/[address] Aldridge and her pending surgery. Em explained that she intends to keep her appointment on 03/05 and would like to speak with Dr. Aldridge or his RN regarding the results so she has a better understanding of her diagnosis and treatment plan. Discussed with Em that I would have Dr. Aldridge review and call her. Em stated that she is scheduled to see 2 physicians in [place] this week for a second opinion and to discuss treatment options and she will contact our office if she decides to cancel her appointment and surgery with Dr. Aldridge. Dr. Aldridge returned call to Em and discussed the results of her MRI and answered all questions that she had. * Telephone Encounter - Kimberli Jennings - 02/18/2017 1640 EDT Patient requesting results of MRI. When advised that the results would be discussed at her clinic visit scheduled for 03/05/17, patient became irate stating that she wasn't going to wait that long. She demanded to know why she needed to drive all the way to [place] to get results. Again, reiterated that results are not given over the phone and that is why the clinic appointment was scheduled as well as she needs to physically be present in the office to sign consent for surgery. Well I have5 copies of that MRI that I am taking to [place] and might not even have surgery with you. Acknowledged that patient can proceed however she wishes but she would need a clinic appointment to discuss results and surgery. Patient terminated call. documented in this encounter Plan of Treatment Not on file documented as of this encounter Visit Diagnoses Not on filedocumented in this encounter Care Teams Underwriting Consultant Relationship Specialty Start Date End Date Mariam Hernandez MD [address] [place] [phone] PCP - General 01/04/17 07/17/17 documented as of this encounter
--- OUTSIDE RECORDS SUMMARY | 2023-12-30 18:41 | XMS_ITS | Encounter Summary ---
Author Organization [facility] Address [address] [place] [address] Care Team Providers Care Fiscal Analyst Name Role Phone Unavailable Primary Care Provider Unavailabl e Encounter Details Date Type Department Care Team (Late st Contact Info) Description 09/09/2000 Results Only [facility] - Maple conversion [address] [place] [address] Radha Nunez, ACID OPERATOR Social History Tobacco Use Types Packs/Day Years Used Date Smoking Tobacco: Never Assessed Sex and Gender Information Value Date Recorded Sex Assigned at Not on file Gender Identity Not on file Sexual Orientation Not on file documented as of this encounter Plan of Treatment Not on file documented as of this encounter Procedures Procedure Name Priority Date/Time Associated Diagnosis Comments CYTOPATHOLOGY Routine 09/09/2000 0:00 EDT documented in this encounter Results * CYTOPATHOLOGY (09/09/2000 0:00 EDT) Pathology Report: CYTOPATHOLOGY REPORT Reports generated via electronic interface contain original data; however they are lacking the format of the original report. Caution should be taken when reading/interpreti ng unformatted reports. Name: ? HANNAH DICKERSON ? Accession #: ? [id number] : ? 1950 (Age: 50) ??F ?Collect Date: ? 09/09/2000 Location: ? [facility] ? Receive Date: ? 09/10/2000 Provider: ?RADHA NUNEZ ACID OPERATOR Copy to: ? Specimen/Source: ?ThinPrep Pap Test, Cervix/Endocervix Last Menstrual Period: ? SPECIMEN ADEQUACY ? Satisfactory for evaluation. GENERAL CATEGORIZATION ? Within Normal Limits ? Document reviewed and electronically signed by: ? Riya Lim, ??CT(ASCP) ? Report Date: ??09/11/2000 09:53 End of Report JUSTINE CEVALLOS 09/09/2000 09/10/2000 Radha Nunez NP PATHOLOGY ORDERABLES [facility] [address] [place] [address] documented in this encounter Visit Diagnoses Not on filedocumented in this encounter
--- OUTSIDE RECORDS SUMMARY | 2023-12-30 18:41 | XMS_ITS | Encounter Summary ---
Author Organization [facility] Address [address] [place] [address] Care Team Providers Care Insurance Counselor Name Role Phone Mariam Hernandez MD Primary Care Provider [phone] Reason for Visit * Reason Comments Follow-up h/o MM Skin Exam FBSE Skin Lesion s/p MOHS on left lavern ek, patient reporting patel colored skin Encounter Details Date Type Department Care Team (Late st Contact Info) Description 04/19/2017 13:00 EST Office Visit [facility] Dermatology 3rd Floor [address] [address] Mervat Melo MD PhD [address] [place] [address], [facility] [address] [place] [address] Neoplasm of uncertain behavior of skin (Primary Dx) Discharge Disposition: Auto Discharge Social [...] as of this encounter Discharge Diagnoses Diagnosis D48.5 Neoplasm of uncertain behavior of skin-D48.5[ICD-10-CM] L57.8 Other skin changes due to chronic exposure to nonionizing radiation-L57.8[ICD-10-CM] Z85.820 Personal history of malignant melanoma of skin-Z85.820[ICD-10-CM] L90.5 Scar conditions and fibrosis of skin-L90.5[ICD-10-CM] documented in this encounter Patient Instructions * Patient Instructions* Soraya Rain - 04/19/2017 13:00 EST DERMATOLOGY WOUND CARE INSTRUCTIONS FOR SKIN BIOPSY The DRESSING/BANDAID should remain in place for 24 hours. You may shower or bathe after 24 hours; remove the bandage and replace it after the shower. DISCOMFORT: Extra-Strength Tylenol, as directed by insurance account representative, usually relieves any pain you may have. BLEEDING: You may notice some blood on the edges of the dressing the first day and this is NORMAL. If the bleeding soaks through the dressing, remove the dressing, and apply firm, steady pressure with a moist clean wash cloth for fifteen minutes. If the bleeding stops, redress the wound, if not, call our office at . ACTIVITY: You may resume normal activity in 1 day unless instructed otherwise. WOUND CARE: ?? Wash hands with soap and water before changing the dressing. ?? Change the dressing daily and when it becomes wet. Clean the wound daily with mild soap and water. You may gently loosen any crusts with a cotton swab. The wound may be slightly tender and may bleed a small amount. A small amount of discharge is normal. Apply a thin layer of sterile petroleum jelly over the wound. Cover the wound with a Telfa (non-stick) dressing or bandage. It is important to keep the wound covered. CONTACT THE OFFICE IF YOU EXPERIENCE: ?? increased redness ?? warmth to touch ?? increased pain ?? drainage with a foul odor ?? rapid swelling of the wound ?? fever or chills Please call our office or . documented in this encounter Discharge Disposition Disposition Code Departure Means Destination Auto Discharge documented in this encounter Progress Notes * Soraya Rain - 04/19/2017 1300 EST Review of Systems Constitutional: Negative for fatigue, [...] The patient is not nervous/anxious. Soraya Rain 04/19/2017 13:11 Patient Education Topic: Wound Care Method: Handout and Verbal Taught to: Patient Barriers: None Outcomes: independent and verbalized understanding Signature:Soraya Rain 04/19/2017 13:35 * Mervat Melo MD - 04/19/2017 1300 EST Dermatology Outpatient Visit Note Chief Complaint Patient presents with ??? Follow-up h/o MM ??? Skin Exam FBSE ??? Skin Lesion s/p MOHS on left cheek, patient reporting patel colored skin Dermatologic History: 1. 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 Dickerson is a 66 y.o. female who presents for follow up for melanoma in situ removed with Mohs in 08/2016. 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. She is doing very well with a little fatigueon Keppra. She notes a new brown spot on her left flank that has not gone away. She also notices some mace discoloration on the left cheek with a little fullness at the superior border. She is otherwise feeling well and has no other cutaneous concerns today. For full Medical, Surgical, Family, and [...] with the addition of the following comments: -Left frontal and parietal scalp within hairline with linear supple well- approximated scar without edema or tenderness to palpation -scattered on the sun exposed areas are multiple even, light brown macules with either bland or regular pigment network on dermoscopy -left cheek is a well-healed linear supple scar without nodularity, repigmentation, edema or tenderness to palpation-dogear present at superior margin. No dermatoscopic mace. ASSESSMENT/PLAN Em was seen today for follow-up, skin exam and skin lesion. Diagnoses and all orders for this visit: Neoplasm of uncertain behavior of skin -Left flank. DDx: DN vs SK r/o MM -Given the diagnostic uncertainty, offered to biopsy this today. Pt agrees. Discussed the risks of a biopsy to include bleeding, infection and scarring. We try to minimize all three but it is inevitable that scarring will occur. Pt agrees that the benefit of the biopsy takes precedence. See procedure note below for details. History of melanoma in situ, left cheek and scar, sun-damaged skin -No clinical evidence of superficial reccurence. -The importance of sunscreen use, sun avoidance and self-examination was discussed, of which the patient showed a good understanding. Cont reg skin exams by a derm. PUNCH BIOPSY PATIENT : Em Dickerson : MRN: [id number] SURGEON: Mervat Melo MD 04/19/2017 13:27 The indication, risks, benefits and alternatives to this procedure were discussed in detail in withthe patient and all questions were answered. Informed consent was obtained in writing. PROCEDURE NOTE: Specimen A Procedure: Punch Biopsy Site: left flank Anesthesia: 1% lidocaine with epinephrine 1:100,000 local infiltration Prep: Alcohol The lesion was prepped and anesthetized with local anesthesia. The specimen was removed with a 5.0 mm punch trephine. Hemostasis was achieved with pressure. The wound was closed with 5.0 Vicryl (polyglactin 910) and 5.0 Prolene (polypropylene) suture. A sterile dressing was applied over petrolatum ointment. Verbal and written wound care instructions were given. The specimen was submitted to pathology for histological evaluation. Suture removal kit for 7 days. She will f/u in 3 months or in the interim should problems arise. Mervat Melo MD Dermatology [facility] documented in this encounter Plan of Treatment Scheduled Orders Name Type Priority Associated Diagnoses Orde r Schedule SURGICAL PATHOLOGY- ORDER ONLY Pathology Routine Neoplasm of uncertain behavior of skin Ordered: 04/19/2017 documented as of this encounter Visit Diagnoses Diagnosis Neoplasm of uncertain behavior of skin- Primary documented in this encounter Historical Medications * This list may reflect changes made after this encounter. Medication Sig Dispensed Refills Start Date End Date levETIRAcetam (KEPPRA) 250 mg tablet Take 250 mg by mouth daily. added in this encounter Care Teams Insurance Counselor Relationship Specialty Start Date End Date Mariam Hernandez MD [address] [place] [id number] PCP - General 01/04/17 07/17/17 documented as of this encounter
--- OUTSIDE RECORDS SUMMARY | 2023-12-30 18:41 | XMS_ITS | Encounter Summary ---
Author Organization [facility] Address [facility] [place] [address] Care Team Providers Care Groover And Turner Name Role Phone Crystal Howell APRN Primary Care Provider [phone] Reason for Referral * Diagnostic Test (Routine) - Closed Specialty Diagnoses / Procedures Referred By Contac t Referred To Contact Radiology Diagnoses Meningioma Procedures MRI Brain wwo Contrast (Generic) Mani Sung MD [facility] [place] [address] [place] [address] Referral ID Status Reason Start Date Expiration Date V isits Requested Visits Authorized [id number] Closed Specialty Service Requested 12/16/2020 06/18/2022 1 1 Reason for Visit * Diagnostic Test (Routine) - Closed Specialty Diagnoses / Procedures Referred By Contac t Referred To Contact Radiology Diagnoses Meningioma Procedures MRI Brain wwo Contrast (Generic) Mani Sung MD [facility] [place] [place] [address] [place] [address] Referral ID Status Reason Start Date Expiration Date V isits Requested Visits Authorized [id number] Closed Specialty Service Requested 12/16/2020 06/18/2022 1 1 Encounter Details Date Type Department Care Team (Latest Contact Info) Description 02/22/2022 9:57 AM EDT - 02/22/2022 10:44 AM EDT Hospital Encounter MRI at [facility] [place] [address] Mani Sung MD [facility] [place] [address] Meningioma Discharge Disposition: Home Social History Tobacco Use [...] End Date fluticasone propionate (FLONASE) 50 mcg/actuation [place], Suspension SHAKE LIQUID AND USE 1 SPRAY IN EACH NOSTRIL TWICE DAILY 11/15/2020 HERBAL DRUGS ORAL Take 2 tablets by mouth nightly as needed. Actually take CBD Oil 09/17/2023 documented as of this encounter Progress Notes * González Harris LPN - 02/22/2022 10:00 AM EDT MRI PRE-SEDATION ASSESSMENT NOTE NAME: Em Dickerson AGE: 71 y.o. : [address] [place] [id number] Female [phone] (home) Telephone Information: Crystal Howell APRN No primary care provider on file. Allergies Allergen Reactions ??? Iodine And Iodide Containing Products Anaphylaxis ??? Penicillins Hives ??? Nitrofurantoin Other (See Comments) Stomach upset Date/Time of call: February 19, 2022/5:37 PM/ PREVIOUS MRI SCAN? Yes HEIGHT: WEIGHT: SCHEDULED SCAN: MRI BRAIN WWO CONTRAST (GENERIC) [[id number]] (60 mins, head first, supine) SUBJECTIVE: Claustrophobic CAN YOU LAY FLAT?: Yes AIRWAY/BREATHING ISSUES?: No DO YOU HAVE ANY INVOLUNTARY MOVEMENTS?: No DO YOU HAVE ANY PAIN?: No DO YOU TAKE PAIN MED ON A DAILY BASIS?: N/A ASSESSMENT: Pt is appropriate for po sedation PLAN: Valium 2 mg PO x 2 (tme) You must have a compressed air pile driver operator present when you check in. This patient has been informed that they require a compressed air pile driver operator to drive them home after this procedure. In the absence of a compressed air pile driver operator, IR will not be able to sedate for your scan. Pt verbalized understanding of these instructions during the pre-procedure education via phone. Yes X [place] of compressed air pile driver operator: Phone number: PRIOR SCAN DATE/S ?SEDATION TYPE ? SUCCESSFUL 07/11/17 MRI Brain Valium 5 MG PO Yes 10/15/17 MRI Brain Valium 5 MG PO Yes 04/10/18 MRI Brain Valium 5 mg po Passed 06/11/19 MRI brain Valium 4 mg total Tolerated well. 12/15/20 MRI Brain Valium 2 mg PO x 2 Yes 02/22/22 MRI brain ?? Valium 2mg PO x ??2 ? Revised 10/01/17 documented in this encounter Plan of Treatment Not on file documented as of this encounter Procedures Procedure Name Priority Date/Time Associated Diagnosis Comments MRI BRAIN WWO CONTRAST (GENERIC) Routine 02/22/2022 12:32 PM EDT Meningioma documented in this encounter Results * MRI Brain wwo [...] who have questions please contact the health direct care worker that requested your imaging first. ? Narrative 02/23/2022 11:16 AM EDT EXAMINATION: MRI BRAIN WWO CONTRAST (GENERIC) CLINICAL HISTORY: Brain/HIDE SHAKER neoplasm, surveillance s/p L pterinal craniotomy for [...] MRI BRAIN WWO CONTRAST (GENERIC) CLINICAL HISTORY: Brain/HIDE SHAKER neoplasm, surveillance s/p L pterinal craniotomy for [...] patients who have questions please contactthe health direct care worker that requested your imaging first. Mani Sung MD IMG MRI ORDERABLES documented in this encounter Visit Diagnoses Diagnosis Meningioma Benign neoplasm of cerebral meninges documented in this encounter Administered Medications Inactive Administered Medications - up to 3 most recent administrations Medication Order MAR Action Action Date Dose Rate Site diazePAM (Valium) tablet 2 mg 2 mg, Oral, EVERY 30 MIN PRN, 2 doses, Starting on [place] 02/22/22 at 0722, Until [place] 02/22/22 at 1100, Anxiety, Minimal Sedation per Department of Radiology Adult Minimal Sedation Guidelines: Give 50 minutes prior to scan., Angio/IR (Day of Procedure), Routine Given 02/22/2022 11:00 AM EDT 2 mg Given 02/22/2022 10:24 AM EDT 2 mg documented in this encounter Care Teams Groover And Turner Relationship Specialty Start Date End Date Crystal Howell APRN [address] [place] [address] PCP - General Family Medicine 02/27/17 documented as of this encounter
--- OUTSIDE RECORDS SUMMARY | 2023-12-30 18:41 | XMS_ITS | Encounter Summary ---
Author Organization [facility] Address [address] [place] [address] Care Team Providers Care Retort Kiln Burner Name Role Phone Unavailable Primary Care Provider Unavailabl e Encounter Details Date Type Department Care Team (Late st Contact Info) Description 09/14/1999 Results Only [facility] - Maple conversion [address] [place] [address] Radha Nunez, PLANT CONTROLS SPECIALIST Social History Tobacco Use Types Packs/Day Years Used Date Smoking Tobacco: Never Assessed Sex and Gender Information Value Date Recorded Sex Assigned at Not on file Gender Identity Not on file Sexual Orientation Not on file documented as of this encounter Plan of Treatment Not on file documented as of this encounter Procedures Procedure Name Priority Date/Time Associated Diagnosis Comments CYTOPATHOLOGY Routine 09/14/1999 8:13 EDT documented in this encounter Results * CYTOPATHOLOGY (09/14/1999 8:13 EDT) Pathology Report: CYTOPATHOLOGY REPORT Reports generated via electronic interface contain original data; however they are lacking the format of the original report. Caution should be taken when reading/interpreti ng unformatted reports. Name: ? HANNAH DICKERSON ? Accession #: ? [id number] : ? 1950 (Age: 49) ??F ?Collect Date: ? 09/14/1999 Location: ?Receive Date: ? 09/14/1999 Provider: ?RADHA NUNEZ NP Copy to: ?RADHA Oj UZIEL MEZA ? Specimen/Source: ?Aviation Survival Technician ThinPrep Last Menstrual Period: ? GYNECOLOGIC ??CYTOPATHOLOGY ??REPORT Name: HANNAH DICKERSON ? [facility] : 1950 ?? 49Y F ?Client ID: [id number] SS#: [id number] ? Clinician: SHIRA NUNEZ NP ?? Location: [facility] ??Copy to: ?? Specimen: ?Aviation Survival Technician ThinPrep ? Source: Cervix/Endocervix ?Collected: 09/11/99 ? Received: 09/14/1999 ?LMP: 1994 ? Hormone Therapy: No ? : No ? Radiation Therapy: No ?? Post : No ?Chemotherapy: No ?IUD: No ? Prev Abnormal Pap: No ?? Clinical Hx: ?(Blank zhu indicate information not provided on requisition) SPECIMEN ADEQUACY: ? Satisfactory For Evaluation ?? GENERAL CATEGORIZATION: ? WITHIN NORMAL LIMITS ? Reviewed And Electronically Signed By: ? Riya Lim, CT(ASCP) ? Report Date: ?? 09/18/1999 [facility] Archived Tests - Final Diagnosis Text Field: Clinical History : ? Document reviewed and electronically signed by: ? Conversion ? Report Date: ??09/18/1999 00:00 End of Report JUSTINE CEVALLOS 09/14/1999 8:13 EDT 09/14/1999 8:14 EDT Radha Nunez PLANT CONTROLS SPECIALIST PATHOLOGY ORDERABLES JUSTINE CEVALLOS [address] [place] [address] documented in this encounter Visit Diagnoses Not on filedocumented in this encounter
--- OUTSIDE RECORDS SUMMARY | 2023-12-30 18:41 | XMS_ITS | Encounter Summary ---
Author Organization [facility] Address [facility] [place] [address] Care Team Providers Care Dukey Rider Name Role Phone Crystal Howell APRN Primary Care Provider [phone] Reason for Visit * Diagnostic Test (Routine) - Closed Specialty Diagnoses / Procedures Referred By Haseeb messina Referred To Contact Radiology Diagnoses MGM (meningioma) Procedures MRI Brain wwo Contrast (Generic) Mani Sung MD [facility] [place] [address] [place] [address] Referral ID Status Reason Start Date Expiration Date V isits Requested Visits Authorized [id number] Closed Specialty Service Requested 11/22/2020 05/25/2022 1 1 Encounter Details Date Type Department Care Team (Latest Contact Info) Description 12/15/2020 8:13 AM EDT - 12/15/2020 11:59 PM EDT Hospital [place] [address] Mani Sung MD [facility] [place] [address] Discharge Disposition: Home Social History Tobacco Use [...] End Date fluticasone propionate (FLONASE) 50 mcg/actuation [place], Suspension SHAKE LIQUID AND USE 1 SPRAY IN EACH NOSTRIL TWICE DAILY 11/15/2020 HERBAL DRUGS ORAL Take 2 tablets by mouth nightly as needed. Actually take CBD Oil 09/17/2023 documented as of this encounter Plan of Treatment Not on file documented as of this encounter Procedures Procedure Name Priority Date/Time Associated Diagnosis Comments MRI BRAIN WWO CONTRAST (GENERIC) Routine 12/15/2020 10:23 AM EDT MGM (meningioma) documented in this encounter Visit Diagnoses Not on filedocumented in this encounter Administered Medications Inactive Administered Medications - up to 3 most recent administrations Medication Order MAR Action Action Date Dose Rate Site gadoterate meglumine (Dotarem) (0.5 mMol/mL) injection solution 0-100 mL 0-100 mL, Intravenous, ONCE PRN, 1 dose, Starting on [place] 12/15/20 at 0921, Until [place] 12/15/20 at 0945, Per Protocol, Radiology Contrast, Routine Given 12/15/2020 9:45 AM EDT 14 mLs documented in this encounter Care Teams Dukey Rider Relationship Specialty Start Date End Date Crystal Howell APRN [address] [place] [address] PCP - General Family Medicine 02/27/17 documented as of this encounter
--- OUTSIDE RECORDS SUMMARY | 2023-12-30 18:41 | XMS_ITS | Encounter Summary ---
Author Organization [facility] Address [address] [place] [address] Care Team Providers Care Traffic Chief Name Role Phone Unavailable Primary Care Provider Unavailabl e Encounter Details Date Type Department Care Team (Late st Contact Info) Description 04/07/2014 Results Only [facility] Services - [facility] [address] [place] [address] Radha Nunez, SUSANA Social History Tobacco [...] Diagnosis Comments PAP TEST- RESULT ONLY Routine 04/07/2014 0:00 EST documented in this encounter Results * PAP TEST- RESULT ONLY (04/07/2014 0:00 EST) Pathology Report: CYTOPATHOLOGY REPORT Reports generated via electronic interface contain original data; however they are lacking the format of the original report. Caution should be taken when reading/interpreti ng unformatted reports. Name: ? HANNAH DICKERSON ? Accession #: ? [id number] : ? 1950 (Age: 63) ??F ?Collect Date: ? 04/07/2014 Location: ? [facility] ? Receive Date: ? 04/08/2014 Provider: ?RADHA NUNEZ STUDENT FINANCIAL AID MANAGER Copy to: ?MARY ELLEN RIZO STUDENT FINANCIAL AID MANAGER ? Specimen/Source: ?Pap Test, Cervix/Endocervix, ThinPrep Imaging System with manual evaluation Last Menstrual Period: ? 1996 ? SPECIMEN ADEQUACY ? Satisfactory for Evaluation - transformation zone component present GENERAL CATEGORIZATION ? Negative for Intraepithelial Lesion or Malignancy ? Document reviewed and electronically signed by: ? GRIS Torres(ASCP) ? Report Date: ??04/13/2014 08:03 End of Report [facility] 04/07/2014 04/08/2014 Radha Nunez NP PATHOLOGY ORDERABLES [facility] [address] [place] [address] documented in this encounter Visit Diagnoses Not on filedocumented in this encounter
--- OUTSIDE RECORDS SUMMARY | 2023-12-30 18:41 | XMS_ITS | Encounter Summary ---
Author Organization [facility] Address [facility] [place] [address] Care Team Providers Care Machinist Helper Marine Name Role Phone DanteDyanCrystal H SAJAN Primary Care Provider [phone] Encounter Details Date Type Department Care Team (Late st Contact Info) Description 02/22/2022 [place] [address] Scott Medina MD [facility] [place] [address] Social History Tobacco Use Types Packs/Day Years [...] encounter Miscellaneous Notes * Telephone Encounter - Riya Call - 02/22/2022 3:50 PM EDT Images from the original note were not included. 2 yr recall entered Scott Medina MD [facility] [place] [place] Neurosurgery Music Engraver Nathan, ID: Em Dickerson, 71 y.o. female, Contact info: see epic Reason: F/u longer term follow up of L meningioma s/p resection Provider: Jackson Reyes (per Dr. Sung) Timeframe: 2 years Imaging: MRI brain w/wo (ordered) Thank you, Scott Medina MD, S [facility] Neurosurgery 02/22/2022 1:39 PM documented in this encounter Plan of Treatment Not on file documented as of this encounter Visit Diagnoses Not on filedocumented in this encounter Care Teams Machinist Helper Marine Relationship Specialty Start Date End Date Crystal Howell APRN [address] [place] [address] PCP - General Family Medicine 02/27/17 documented as of this encounter
--- OUTSIDE RECORDS SUMMARY | 2023-12-30 18:41 | XMS_ITS | Encounter Summary ---
Author Organization [facility] Address [address] [place] [address] Care Team Providers Care Heater Operator Name Role Phone Unavailable Primary Care Provider Unavailabl e Encounter Details Date Type Department Care Team (Late st Contact Info) Description 02/18/2006 Results Only [facility] - Maple conversion [address] [place] [address] Radha Nunez, CREATIVE SERVICES SPECIALIST Social History Tobacco Use Types Packs/Day Years Used Date Smoking Tobacco: Never Assessed Sex and Gender Information Value Date Recorded Sex Assigned at Not on file Gender Identity Not on file Sexual Orientation Not on file documented as of this encounter Plan of Treatment Not on file documented as of this encounter Procedures Procedure Name Priority Date/Time Associated Diagnosis Comments CYTOPATHOLOGY Routine 02/18/2006 0:00 EDT documented in this encounter Results * CYTOPATHOLOGY (02/18/2006 0:00 EDT) Pathology Report: CYTOPATHOLOGY REPORT Reports generated via electronic interface contain original data; however they are lacking the format of the original report. Caution should be taken when reading/interpreti ng unformatted reports. Name: ? HANNAH DICKERSON ? Accession #: ? [id number] : ? 1950 (Age: 55) ??F ?Collect Date: ? 02/18/2006 Location: ? [facility] ? Receive Date: ? 02/19/2006 Provider: ?RADHA NUNEZ CREATIVE SERVICES SPECIALIST Copy to: ? Specimen/Source: ?ThinPrep Pap Test, Cervix/Endocervix, processed on [employer] ThinPrep Imaging System, with manual evaluation Last Menstrual Period: ? Other: ? HPVA - HPV testing requested if ASC-US on the current ThinPrep Pap test. ? SPECIMEN ADEQUACY ? Satisfactory for Evaluation - transformation zone component present GENERAL CATEGORIZATION ? Negative for Intraepithelial Lesion or Malignancy ? Document reviewed and electronically signed by: ? TOBIAS Woodson(ASCP) ? Report Date: ??02/21/2006 14:58 End of Report JUSTINE CEVALLOS 02/18/2006 02/19/2006 Radha Nunez NP PATHOLOGY ORDERABLES JUSTINE CEVALLOS [address] [place] [address] documented in this encounter Visit Diagnoses Not on filedocumented in this encounter
--- OUTSIDE RECORDS SUMMARY | 2023-12-30 18:41 | XMS_ITS | Encounter Summary ---
Author Organization [facility] Address [facility] [place] [address] Care Team Providers Care Warehouse Puller Name Role Phone Crystal Howell APRN Primary Care Provider [phone] Reason for Referral * Diagnostic Test (Routine) - Closed Specialty Diagnoses / Procedures Referred By Contac t Referred To Contact Radiology Diagnoses MGM (meningioma) Procedures MRI Brain wwo Contrast (Generic) Mani Sung MD [facility] [place] [address] [place] [address] Referral ID Status Reason Start Date Expiration Date V isits Requested Visits Authorized [id number] Closed Specialty Service Requested 11/22/2020 05/25/2022 1 1 Reason for Visit * Diagnostic Test (Routine) - Closed Specialty Diagnoses / Procedures Referred By Contac t Referred To Contact Radiology Diagnoses MGM (meningioma) Procedures MRI Brain wwo Contrast (Generic) Mani Sung MD [facility] [place] [place] [address] [place] [address] Referral ID Status Reason Start Date Expiration Date V isits Requested Visits Authorized [id number] Closed Specialty Service Requested 11/22/2020 05/25/2022 1 1 Encounter Details Date Type Department Care Team (Latest Contact Info) Description 12/15/2020 8:10 AM EDT - 12/15/2020 8:12 AM EDT Hospital Encounter MRI [facility] [place] [address] Mani Sung MD [facility] [place] [place] [address] MGM (meningioma) Discharge Disposition: Home Social History Tobacco Use [...] End Date fluticasone propionate (FLONASE) 50 mcg/actuation [place], Suspension SHAKE LIQUID AND USE 1 SPRAY IN EACH NOSTRIL TWICE DAILY 11/15/2020 HERBAL DRUGS ORAL Take 2 tablets by mouth nightly as needed. Actually take CBD Oil 09/17/2023 documented as of this encounter Progress Notes * Kelly Samuels RN - 12/15/2020 10:33 AM EDT MRI PRE-SEDATION ASSESSMENT NOTE NAME: Em Dickerson AGE: 70 y.o. : 1950 [address] [facility] [address] Female [phone] (home) Telephone Information: Crystal Howell APRN No primary care provider on file. Allergies Allergen Reactions ??? Iodine And Iodide Containing Products Anaphylaxis ??? Penicillins Hives ??? Nitrofurantoin Other (See Comments) Stomach upset Date/Time of call: December 09, 2020/12:33 PM/ PREVIOUS MRI SCAN? Yes SCHEDULED SCAN: MRI BRAIN WWO CONTRAST (GENERIC) [PEC098], 60 minutes, scanner 1 SUBJECTIVE: clasutrophobia CAN YOU LAY FLAT? yes AIRWAY/BREATHING ISSUES? no DO YOU HAVE ANY INVOLUNTARY MOVEMENTS? no DO YOU HAVE ANY PAIN? no DO YOU TAKE PAIN MED ON A DAILY BASIS? na ASSESSMENT: Pt is a good candidate for po sedation PLAN: Diazepam 2 mg x 4 po (DWP ) You must have a school bus driver/custodian present when you check in. This patient has been informed that they require a school bus driver/custodian to drive them home after this procedure. In the absence of a school bus driver/custodian, IR will not be able to sedate for your scan. Pt verbalized understanding of these instructions during the pre-procedure education via phone. Yes Shel[place] of school bus driver/custodian: Phone number: PRIOR SCAN DATE/S ?SEDATION TYPE ? SUCCESSFUL 07/11/17 MRI Brain Valium 5 MG PO Yes 10/15/17 MRI Brain Valium 5 MG PO Yes 04/10/18 MRI Brain Valium 5 mg po Passed 06/11/19 MRI brain Valium 4 mg total Tolerated well. 12/15/20 MRI Brain Valium 2 mg PO x 2 Yes ? Revised 10/01/17 documented in this encounter Plan of Treatment Not on file documented as of this encounter Procedures Procedure Name Priority Date/Time Associated Diagnosis Comments MRI BRAIN WWO CONTRAST (GENERIC) Routine 12/15/2020 10:23 AM EDT MGM (meningioma) documented in this encounter Results * MRI Brain wwo Contrast (Generic) (12/15/2020 10:23 AM EDT) Anatomical Region Laterality Modality Head Magnetic Resonan ce Impressions 12/15/2020 11:47 AM EDT 1. ??Stable plaque-like extra-axial enhancement overlying the left greater sphenoid wing. 2. ??Stable multiple chronic peripheral cerebral microhemorrhages likely related to amyloid angiopathy. I have personally reviewed the image(s) and the resident's interpretation and agree with the findings, Anshul Abel MD at 12/15/2020 11:47 AM Thank you for letting us participate in the care of this patient. ??If you are a health care provider and have any questions regarding this report, please contact the number below. ??For patients who have questions please contact the health med care manager that requested your imaging first. ? Electronically signed by: Anshul Abel MD, [facility] ([phone]), at 12/15/2020 11:47 AM Narrative 12/15/2020 11:47 AM EDT EXAMINATION: MRI BRAIN WWO CONTRAST (GENERIC) CLINICAL HISTORY: Brain/ORACLE BUSINESS ANALYST neoplasm, surveillance Meningioma (D32.9) S/P L pterinal craniotomy for resection 03/11/17; Compare to image on 06/11/2019 TECHNIQUE: MRI of the brain was performed before and after the intravenous administration of 14cc Dotarem. COMPARISON: Multiple MRI head most recent 06/11/2019, most distant 02/16/2017 FINDINGS: Left frontal craniotomy defect again noted. Stable plaque-like extra-axial enhancement overlying the left greater sphenoid wing. Unchanged adjacent left anterior temporal horn encephalomalacia/gliosis. No other sites of abnormal enhancement. No diffusion-weighted abnormalities. Intracranial midline structures are normal. Ventricles and extra-axial spaces are stable in size. Stable multiple periventricular subcortical regions of T2 hyperintensity represent chronic ischemic small vessel disease. Stable multiple foci of peripherally located susceptibility signal suppression during central brain structures represents chronic microhemorrhages likely related to amyloid angiopathy or, less likely hypertension. Paranasal sinuses and mastoid air cells are clear. Mastoid air cells are clear. Procedure Note Anshul Abel MD - 12/15/2020 EXAMINATION: MRI BRAIN WWO CONTRAST (GENERIC) CLINICAL HISTORY: Brain/ORACLE BUSINESS ANALYST neoplasm, surveillance Meningioma (D32.9) S/P L pterinal craniotomy for resection 03/11/17;Compare to image on 06/11/2019 TECHNIQUE: MRI of the brain was performed before and after the intravenousadministration of 14cc Dotarem. COMPARISON: Multiple MRI head most recent 06/11/2019, most distant 02/16/2017 FINDINGS: Left frontal craniotomy defect again noted. Stable plaque-like extra-axial enhancement overlying the left greatersphenoid wing. Unchanged adjacent left anterior temporal hornencephalomalacia/gliosis. No other sites of abnormal enhancement. No diffusion-weightedabnormalities. Intracranial midline structures are normal. Ventricles and extra-axialspaces are stable in size. Stable multiple periventricular subcortical regions ofT2 hyperintensity represent chronic ischemic small vessel disease. Stable multiple foci of peripherally located susceptibility signalsuppression during central brain structures represents chronic microhemorrhageslikely related to amyloid angiopathy or, less likely hypertension. Paranasal sinuses and mastoid air cells are clear. Mastoid air cells areclear. IMPRESSION 1. Stable plaque-like extra-axial enhancement overlying the leftgreater sphenoid wing. 2. Stable multiple chronic peripheral cerebral microhemorrhages likelyrelated to amyloid angiopathy. I have personally reviewed the image(s) and the resident's interpretationand agree with the findings, Anshul Abel MD at 12/15/2020 11:47 AM Thank you for letting us participate in the care of this patient. If youare a health care provider and have any questions regarding this report,please contact the number below. For patients who have questions please contactthe health med care manager that requested your imaging first. Electronically signed by: Anshul Abel MD, [facility]([phone]), at 12/15/2020 11:47 AM Mani Sung MD IMG MRI ORDERABLES documented in this encounter Visit Diagnoses Diagnosis MGM (meningioma) Benign neoplasm of cerebral meninges documented in this encounter Administered Medications Inactive Administered Medications - up to 3 most recent administrations Medication Order MAR Action Action Date Dose Rate Site diazePAM (Valium) tablet 2 mg 2 mg, Oral, EVERY 30 MIN PRN, 2 doses, Starting on [place] 12/15/20 at 0708, Until [place] 12/15/20 at 0903, Anxiety, Angio/IR (Day of Procedure), Routine Given 12/15/2020 9:03 AM EDT 2 mg Given 12/15/2020 8:29 AM EDT 2 mg documented in this encounter Care Teams Warehouse Puller Relationship Specialty Start Date End Date Crystal Howell APRN [address] [place] [address] PCP - General Family Medicine 02/27/17 documented as of this encounter
--- OUTSIDE RECORDS SUMMARY | 2023-12-30 18:41 | XMS_ITS | Encounter Summary ---
Author Organization [facility] Address [address] [place] [address] Care Team Providers Care Taxation Economist Name Role Phone Nicole Dang NP Primary Care Provider [phone] Reason for Visit * Reason Onset Date Comments Melanoma 07/20/2016 patient requesti ng a second oppion. Faxing notes and pathology report Encounter Details Date Type Department Care Team (Late st Contact Info) Description 07/20/2016 Telephone [facility] Dermatology 5th Floor [address] [id number] Mustapha Napier MD [address] [facility], [address] [place] [address] Melanoma (patient requesting a second oppion. Faxing notes and pathology report) Social History Tobacco Use Types Packs/Day Years Used Date Smoking Tobacco: Never Assessed Sex and Gender Information Value Date Recorded Sex Assigned at Not on file Gender Identity Not on file Sexual Orientation Not on file documented as of this encounter Miscellaneous Notes * Telephone Encounter - Chantale Gregg - 07/25/2016 9083 EDT Spoke to patient and as for right now she is scheduled to see Dr. Narayan Morin on 09/03/16 at 8:30 am. Patient has verbalized a good understanding and will follow up as planned. Referring office notified. * Telephone Encounter - Danica Padron - 07/24/2016 1436 EDT Patient called, she would like to clarify that her month long vacation (currently scheduled for August), she is willing to postpone or reschedule if she is able to get in for her procedure, Please call with any questions. * Telephone Encounter - Libra Erickson - 07/24/2016 1226 EDT Patient has a month long vacation schedule and would like to have an update. Please call patient. Libra Erickson 07/24/2016 12:27 * Telephone Encounter - Montse Early - 07/23/2016 0947 EDT Notes and Pathology Scanned into Prism. * Telephone Encounter - Tonia Lundberg - 07/23/2016 0930 EDT Pathology received. Tonia Lundberg 07/23/2016 9:30 * Telephone Encounter - Leana Pendleton RN - 07/23/2016 0917 EDT Spoke to patient This is not a second opinion Biopsy performed at [facility] - melanoma in situ, face Patient would like Mohs surgery performed by [facility] Dermatology Pathology report has been requested Patient is also calling [facility] to request referral to our practice She will request notes and Path report to be forwarded to us. Advised once pathology report is received, we will forward to Mohs Department and then they will call to set up MCO. Patient verbalized understanding, no barriers to learning. LEANA PENDLETON RN 07/23/2016 9:21 * Telephone Encounter - Tonia Lundberg - 07/23/2016 0827 EDT Requested pathology to be faxed from [facility] Dermatology. Tonia Lundberg 07/23/2016 8:31 * Telephone Encounter - Tonia Lundberg - 07/23/2016 0815 EDT Patient calling to check in on status of referral. Informed patient that it looks like we have received a fax with the referral and some notes. Pathology was not included in fax. Let patient know that I will call Dr. Cha's office at [facility] to request pathology to be sent. Patient would liketo schedule appointment NEELAM. Tonia Lundberg 07/23/2016 8:23 * Telephone Encounter - Chantale Gregg - 07/20/2016 1646 EDT patient requesting a second oppion. Faxing notes and pathology report. 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
--- OUTSIDE RECORDS SUMMARY | 2023-12-30 18:41 | XMS_ITS | Encounter Summary ---
Author Organization [facility] Address [address] [place] [address] Care Team Providers Care Aircraft Engine Mechanic Name Role Phone Unavailable Primary Care Provider Unavailabl e Encounter Details Date Type Department Care Team (Late st Contact Info) Description 10/08/2001 Results Only [facility] - Maple conversion [address] [place] [address] Radha Nunez, DRY CLEANING MACHINE OPERATOR HELPER Social History Tobacco Use Types Packs/Day Years Used Date Smoking Tobacco: Never Assessed Sex and Gender Information Value Date Recorded Sex Assigned at Not on file Gender Identity Not on file Sexual Orientation Not on file documented as of this encounter Plan of Treatment Not on file documented as of this encounter Procedures Procedure Name Priority Date/Time Associated Diagnosis Comments CYTOPATHOLOGY Routine 10/08/2001 0:00 EDT documented in this encounter Results * CYTOPATHOLOGY (10/08/2001 0:00 EDT) Pathology Report: CYTOPATHOLOGY REPORT Reports generated via electronic interface contain original data; however they are lacking the format of the original report. Caution should be taken when reading/interpreti ng unformatted reports. Name: ? HANNAH DICKERSON ? Accession #: ? [id number] : ? 1950 (Age: 51) ??F ?Collect Date: ? 10/08/2001 Location: ? [facility] ? Receive Date: ? 10/13/2001 Provider: ?RADHA NUNEZ DRY CLEANING MACHINE OPERATOR HELPER Copy to: ? Specimen/Source: ?ThinPrep Pap Test, Cervix/Endocervix Last Menstrual Period: ? SPECIMEN ADEQUACY ? Satisfactory for Evaluation - assessment of transformation zone component not applicable ( e.g. atrophy, vaginal sample, hysterectomy) GENERAL CATEGORIZATION ? Negative for Intraepithelial Lesion or Malignancy ? Document reviewed and electronically signed by: ? GRIS De La O(ASCP) ? Report Date: ??10/15/2001 08:25 End of Report JUSTINE CEVALLOS 10/08/2001 10/13/2001 Radha Nunez NP PATHOLOGY ORDERABLES JUSTINE CEVALLOS [address] [place] [address] documented in this encounter Visit Diagnoses Not on filedocumented in this encounter
--- OUTSIDE RECORDS SUMMARY | 2023-12-30 18:41 | XMS_ITS | Encounter Summary ---
Author Organization [facility] Address [facility] [place] [address] Care Team Providers Care Knot Picker Cloth Name Role Phone Crystal Howell APRN Primary Care Provider [phone] Reason for Visit * Diagnostic Test (Routine) - Closed Specialty Diagnoses / Procedures Referred By Haseeb messina Referred To Contact Radiology Diagnoses Meningioma Procedures MRI Brain wwo Contrast (Generic) Mani Sung MD [facility] [place] [address] [place] [address] Referral ID Status Reason Start Date Expiration Date V isits Requested Visits Authorized [id number] Closed Specialty Service Requested 12/16/2020 06/18/2022 1 1 Encounter Details Date Type Department Care Team (Latest Contact Info) Description 02/22/2022 10:45 AM EDT - 02/22/2022 11:59 PM EDT Hospital [place] [address] Mani Sung MD [facility] [place] [address] Discharge Disposition: Home Social History [...] End Date fluticasone propionate (FLONASE) 50 mcg/actuation [place], Suspension SHAKE LIQUID AND USE 1 SPRAY [...] PM EDT Meningioma documented in this encounter Visit Diagnoses Not on filedocumented in this encounter Administered Medications Inactive Administered Medications - up to 3 most recent administrations Medication Order MAR Action Action Date Dose Rate Site gadoterate meglumine (Dotarem) (0.5 mMol/mL) injection solution 0-100 mL 0-100 mL, Intravenous, ONCE PRN, 1 dose, Starting on [place] 02/22/22 at 1237, Until [place] 02/22/22 at 1225, Per Protocol, Radiology Contrast, Routine Given 02/22/2022 12:25 PM EDT 15 mLs documented in this encounter Care Teams Knot Picker Cloth Relationship Specialty Start Date End Date Crystal Howell APRN [address] [place] [address] PCP - General Family Medicine 02/27/17 documented as of this encounter
--- OUTSIDE RECORDS SUMMARY | 2023-12-30 18:41 | XMS_ITS | Encounter Summary ---
Author Organization [facility] Address [address] [place] [address] Care Team Providers Care Aircraft Technician Name Role Phone Mariam Hernandez MD Primary Care Provider [phone] Reason for Visit * Reason Onset Date Comments Medication Questions 02/05/2017 Encounter Details Date Type Department Care Team (Late st Contact Info) Description 02/05/[address] [facility] Neurosurgery - [address] [id number] Alex Aldridge MD [address] [place] [address], [address] [place] [address] Medication Questions Social History Tobacco Use Types Packs/Day Years [...] No 01/15/2017 documented as of this encounter Ordered Prescriptions Prescription Sig Dispensed Refills Start Date End Da te DIAZepam (VALIUM) 5 mg tablet Take 1 tab 45 min prior to the procedure and repeat immediately before if needed 2 Tab 02/06/2017 documented in this encounter Miscellaneous Notes * Telephone Encounter - Ethan Wilkins RN - 02/06/2017 1410 EDT Patient called back and left voice message for this senior medical writer. This senior medical writer called the patient back andstated that her valium was sent to her desired pharmacy. She verbalized understanding. She was toldMRI contrast is not the same as the iodine based one as a CT. She stated she therefore did not needany medications for her MRI. Patient verbalized understanding of situation. No further comments made. * Telephone Encounter - Ethan Wilkins RN - 02/06/2017 1236 EDT Called patient. No answer. Left message with triage number. Currently mailing valium prescription to desired pharmacy ([facility] in [place], [place]) * Telephone Encounter - Ethan Wilkins RN - 02/05/2017 1301 EDT Patient is requesting MRI medication due to an allergy to contrast. Her MRI is scheduled for 02/16 at 1300. She is also requesting valium for the MRI due to claustrophobia. She has taken valium in the past with no adverse reactions. VPMS queried. Her desired pharmacy is [facility] in [place], [place]. Will route to provider for review. Patient verbalized understanding * Telephone Encounter - Kimberli Jennings - 02/05/2017 1250 EDT MRI has been rescheduled for 02/16. She needs medication prior to scan due to allergy to contrast. She would also like to discuss ativan vs valium with RN. documented in this encounter Plan of Treatment Not on file documented as of this encounter Visit Diagnoses Not on filedocumented in this encounter Care Teams Aircraft Technician Relationship Specialty Start Date End Date Mariam Hernandez MD [address] [place] [address] PCP - General 01/04/17 07/17/17 documented as of this encounter
--- OUTSIDE RECORDS SUMMARY | 2023-12-30 18:41 | XMS_ITS | Encounter Summary ---
Author Organization [facility] Address [address] [place] [address] Care Team Providers Care Knot Borer Name Role Phone Mariam Hernandez MD Primary Care Provider [phone] Encounter Details Date Type Department Care Team (Late st Contact Info) Description 01/15/2017 6:16 EDT - 01/15/2017 23:59 EDT Hospital Encounter [address] [address] Mervat Melo MD PhD [address] [facility], [address] [place] [phone] Discharge Disposition: Auto Discharge Social History Tobacco [...] as of this encounter Discharge Diagnoses Diagnosis R22.1 Localized swelling, mass and lump, neck-R22.1[ICD-10-CM] documented in this encounter Medications at Time [...] on filedocumented in this encounter Care Teams Knot Borer Relationship Specialty Start Date End Date Mariam Hernandez MD [address] [place] [address] PCP - General 01/04/17 07/17/17 documented as of this encounter
--- OUTSIDE RECORDS SUMMARY | 2023-12-30 18:41 | XMS_ITS | Encounter Summary ---
Author Organization [facility] Address [address] [place] [address] Care Team Providers Care Stagecraft Teacher Name Role Phone Mariam Hernandez MD Primary Care Provider [phone] Reason for Visit * Reason Onset Date Comments Appointment Related 01/10/2017 Encounter Details Date Type Department Care Team (Late st Contact Info) Description 01/10/2017 Telephone [facility] Dermatology 3rd Floor [facility] [address] [place], [place] [id number] Mervat Melo MD PhD [address] [facility], [address] [place] [address] Appointment Related Social History Tobacco Use Types Packs/Day Years [...] encounter Miscellaneous Notes * Telephone Encounter - Eloisa Park - 01/10/2017 0831 EDT Spoke to patient and scheduled follow up for 04/19 at 1PM. Eloisa Park 01/10/2017 8:33 * Telephone Encounter - Amy Abebe - 01/10/2017 0822 EDT Patient calling because she recently saw Dr. Melo on 01/08 for a follow up after her Mohs procedure with Dr. Love and she was told to follow up in 3 months. She states she needs to set up her follow up sometime in April. She scheduled a future follow up in June but I was not able to find a April appointment. Please call to discuss. documented in this encounter Plan of Treatment Not on file documented as of this encounter Visit Diagnoses Not on filedocumented in this encounter Care Teams Stagecraft Teacher Relationship Specialty Start Date End Date Mariam Hernandez MD [address] [place] [phone] PCP - General 01/04/17 07/17/17 documented as of this encounter
--- OUTSIDE RECORDS SUMMARY | 2023-12-30 18:41 | XMS_ITS | Encounter Summary ---
Author Organization Formerly [facility] Address [facility] [place] [address] Care Team Providers Care Business Systems Analyst Name Role Phone Crystal Howell APRN Primary Care Provider [phone] Encounter Details Date Type Department Care Team (Late st Contact Info) Description 12/15/2020 11:20 AM EDT [place] [address] Mani Sung MD [facility] [place] [address] Meningioma Social History Tobacco Use Types Packs/Day Years [...] Sign Reading Time Taken Comments Blood Pressure 138/64 12/15/2020 11:11 AM EDT Pulse 70 12/15/2020 11:11 AM EDT Temperature 36.3 ??C (97.3 ??F) 12/15/2020 11:11 AM E DT Respiratory Rate - - Oxygen Saturation - - Inhaled Oxygen Concentration - - Weight 72.1 kg (159 lb) 12/15/2020 11:11 AM EDT Height 170.2 cm (5' 7) 12/15/2020 11:11 AM EDT Body Mass Index 24.9 12/15/2020 11:11 AM EDT documented in this encounter Progress Notes * Mani Sung MD - 12/15/2020 11:20 AM EDT Neurosurgery Clinic Note ?? 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 She reports no new neurologic symptoms. ?? Her neurological exam remains unremarkable. ?? Her MRI from today was reviewed and again demonstrates left temporal pole dural thickening/enhancement. This appears to be stable compared to prior postoperative imaging in 2019 and going back to 2018. We again discussed the rationale for continued imaging follow-up and we will plan on another MRI next year. We discussed that at that point it will have been 5 years and we will follow this and we could consider MRI every other year if that again is stable. ?? Mani Sung MD ?? Total visit time??20??minutes, of which 15??were spent counseling and coordinating care, including reviewing relevant imaging, lab results, and/or medical records. documented in this encounter Plan of Treatment Not on file documented as of this encounter Visit Diagnoses Diagnosis Meningioma Benign neoplasm of cerebral meninges documented in this encounter Care Teams Business Systems Analyst Relationship Specialty Start Date End Date Crystal Howell, SAJAN [address] [place] [address] PCP - General Family Medicine 02/27/17 documented as of this encounter
--- OUTSIDE RECORDS SUMMARY | 2023-12-30 18:41 | XMS_ITS | Encounter Summary ---
Author Organization [facility] [place] [address] Care Team Providers Care Theatre Arts Professor Name Role Phone Crystal Hwoell APRN Primary Care Provider [phone] Reason for Referral * Diagnostic Test (Routine) - Closed Specialty Diagnoses / Procedures Referred By Contac t Referred To Contact Radiology Diagnoses Paresthesias Procedures MRI Lumbar Spine wo Contrast (Generic) Mariam Hernandez MD [address] [place] [address] [place] [address] Referral ID Status Reason Start Date Expiration Date V isits Requested Visits Authorized [id number] Closed Specialty Service Requested 03/14/2023 09/11/2024 1 1 Reason for Visit * Diagnostic Test (Routine) - Closed Specialty Diagnoses / Procedures Referred By Contac t Referred To Contact Radiology Diagnoses Paresthesias Procedures MRI Lumbar Spine wo Contrast (Generic) Mariam Hernandez MD [address] [place] [address] [place] [address] Referral ID Status Reason Start Date Expiration Date V isits Requested Visits Authorized [id number] Closed Specialty Service Requested 03/14/2023 09/11/2024 1 1 Encounter Details Date Type Department Care Team (Latest Contact Info) Description 03/15/2023 2:37 PM EST Hospital [place] [address] Mariam Hernandez MD [address] [place] [address] Paresthesias Discharge Disposition: Home Social History Tobacco Use [...] End Date fluticasone propionate (FLONASE) 50 mcg/actuation [place], Suspension SHAKE LIQUID AND USE 1 SPRAY IN EACH NOSTRIL TWICE DAILY 11/15/2020 [employer] ORAL Take 2 tablets by mouth nightly as needed. Actually take CBD Oil 09/17/2023 documented as of this encounter Progress Notes * Nayla Hernandez RN - 03/14/2023 11:48 AM EST MRI PRE-SEDATION ASSESSMENT NOTE NAME: Em Dickerson AGE: 72 y.o. : 1950 [address] [facility] [address] Female [phone] (home) Telephone Information: Crystal Howell APRN No primary care provider on file. Allergies Allergen Reactions Iodine And Iodide Containing Products Anaphylaxis Penicillins Hives Macrobid [Nitrofurantoin Monohyd/M-Cryst] Nitrofurantoin Other (See Comments) Stomach upset Date/Time of call: March 14, 2023/11:49 AM/ SCHEDULED SCAN: MRI LUMBAR SPINE WITHOUT CONTRAST [[id number]] HEIGHT: WEIGHT: Have you had a PREVIOUS MRI SCAN? Yes Are you claustrophobic or anxious in the scanner? Yes CAN YOU LAY FLAT? Yes Do you have trouble breathing when lying flat? No DO YOU HAVE ANY INVOLUNTARY MOVEMENTS? No DO YOU TAKE PAIN MEDICATION ON A DAILY BASIS? No (explain) PLAN: Valium, previously tolerated. (unless MRI previously tolerated with Valium) You must have a hole digger truck driver present when you check in. This patient has been informed that they require a hole digger truck driver to drive them home after this procedure. In the absence of a hole digger truck driver, IR will not be able tosedate for your scan. Pt verbalized understanding of these instructions during the pre-procedure education via phone. Yes Name of hole digger truck driver: Rob Allison (Partner) Phone number: PRIOR SCAN DATE/S SEDATION TYPE SUCCESSFUL 07/11/17 MRI Brain Valium 5 MG PO Yes 10/15/17 MRI Brain Valium 5 MG PO Yes 04/10/18 MRI Brain Valium 5 mg po Passed 06/11/19 MRI brain Valium 4 mg total Tolerated well. 12/15/20 MRI Brain Valium 2 mg PO x 2 Yes 02/22/22 MRI brain Valium 2mg PO x 2 03/15/23 MRI Lumbar Spine wo Contrast Valium 2 mg x 2 Yes Revised 10/30/2022 documented in this encounter Plan of Treatment Not on file documented as of this encounter Procedures Procedure Name Priority Date/Time Associated Diagnosis Comments MRI LUMBAR SPINE WITHOUT CONTRAST Routine 03/15/2023 4:41 PM EST Paresthesias documented in this encounter Results * MRI Lumbar Spine wo Contrast (Generic) (03/15/2023 4:41 PM EST) Anatomical Region Laterality Modality L-spine Magnetic Resonan ce Impressions 03/17/2023 9:46 AM EST Fziy-ny-bhsgrdrx degenerative changes as outlined above. Comment: The following findings are so common in people without low back pain that while we report their presence, they must be interpreted with caution and in context of the clinical situation (Reference- Timoteok Et Al, Spine 2001). Findings: (Prevalence in [...] who have questions please contact the health progressive care manager that requested your imaging first. ? Electronically signed by: Lonnie Mcclendon MD, [facility] ([phone]), at 03/17/2023 9:46 AM Narrative 03/17/2023 9:46 [...] significantcanal or foraminal stenosis. No herniation. IMPRESSION Xsas-ef-wttdvubx degenerative changes as outlined above. Comment: The following findings are so common in people without low backpain that while we report their presence, they must be interpreted with cautionand in context of the clinical situation (Reference- Sanjeev Et Al, [id number]). Findings: (Prevalence in patients without low back [...] patients who have questions please contactthe health progressive care manager that requested your imaging first. Mariam Hernandez MD IMG MRI ORDERABLES documented in this encounter Visit Diagnoses Diagnosis Paresthesias Disturbance of skin sensation documented in this encounter Administered Medications Inactive Administered Medications - up to 3 most recent administrations Medication Order MAR Action Action Date Dose Rate Site diazePAM (Valium) tablet 2 mg 2 mg, Oral, Administer over 30 Minutes, EVERY 30 MIN PRN, 2 doses, Starting on Sat03/15/23 at 0757, Until Sat03/15/23 at 1603, Anxiety, Minimal Sedation per Department of Radiology Adult Minimal Sedation Guidelines: Give 50 minutes prior to scan., Angio/IR (Day of Procedure), Routine Given 03/15/2023 3:33 PM EST 2 mg Given 03/15/2023 2:58 PM EST 2 mg documented in this encounter Care Teams Theatre Arts Professor Relationship Specialty Start Date End Date Crystal Howell, MANAGED SECURITY SALES CONSULTANT [address] [place] [address] PCP - General Family Medicine 02/27/17 documented as of this encounter
--- OUTSIDE RECORDS SUMMARY | 2023-12-30 18:41 | XMS_ITS | Encounter Summary ---
Author Organization [facility] Address [address] [place] [address] Care Team Providers Care Varnish Remover Name Role Phone Mariam Hernandez MD Primary Care Provider [phone] Reason for Visit * Reason Onset Date Comments Appointment Related 01/16/2017 Encounter Details Date Type Department Care Team (Late st Contact Info) Description 01/16/2017 Telephone [facility] Neurosurgery - [address] [id number] Alex Aldridge MD [address] [place] [address], [address] [place] [address] Appointment Related Social History Tobacco [...] Notes * Telephone Encounter - RomanSanjeeven - 01/16/2017 1131 EDT LM for Em with the following appointment details: - [facility] Check in at 1pm at registration MRI at 1:45pm 03/05/17 - [facility] Appointment at 10:45pm with Dr. Aldridge Check in at registration at 12:30pm CT at 1pm Advised Em to contact our office if she has any questions or needs to reschedule. documented in this encounter Plan of Treatment Not on file documented as of this encounter Visit Diagnoses Not on filedocumented in this encounter Care Teams Varnish Remover Relationship Specialty Start Date End Date Mariam Hernandez MD [address] [place] [address] PCP - General 01/04/17 07/17/17 documented as of this encounter
--- OUTSIDE RECORDS SUMMARY | 2023-12-30 18:41 | XMS_ITS | Encounter Summary ---
Author Organization [facility] Address [address] [place] [address] Care Team Providers Care Warp Hauler Name Role Phone Mariam Hernandez MD Primary Care Provider [phone] Reason for Referral * Radiology Services (Routine) - Closed Specialty Diagnoses / Procedures Referred By Haseeb t Referred To Contact Diagnoses Meningioma (HCC-CMS) Procedures MR HEAD W/WO CONTRAST Alex Aldridge MD [address] [place] [id number] Referral ID Status Reason Start Date Expiration Date Visits Re quested Visits Authorized [id number] Closed 01/15/2017 1 1 Reason for Visit * Reason Comments New Patient Visit tumor Encounter Details Date Type Department Care Team (Late st Contact Info) Description 01/15/2017 13:00 EDT Office Visit [facility] Neurosurgery - [address] [phone] Alex Aldridge MD [address] [place] [phone] Meningioma (CMS-HCC) (HCC-CMS) (Primary Dx) Discharge Disposition: Auto [...] EDT Pulse 80 01/15/2017 1236 EDT Temperature - - Respiratory Rate 12 01/15/2017 1236 EDT Oxygen Saturation - - Inhaled Oxygen Concentration - - Weight 70.3 kg (155 lb) 01/15/2017 1236 EDT Height 168.9 cm (5' 6.5) 01/15/2017 1236 EDT Body Mass Index 24.64 01/15/2017 1236 EDT documented in this encounter Functional Status Functional [...] and lump, neck-R22.1[ICD-10-CM] documented in this encounter Discharge Disposition Disposition Code Departure Means Destination Auto Discharge documented in this encounter Progress Notes * Annalise Simmons MD - 01/15/2017 1300 EDT Ms Dickerson is a very pleasant 66-year-old woman who was seen in dermatology clinic earlier today. 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 She had lymphadenopathy on the neck and she had an ultrasound and she was going to go under an FNA though she had a CT scan of the neck with a localizer to better assess the lymph nodes. 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 Ms Dickerson denies any symptoms from this meningioma at this point. Upon further questioning, a coupleof times in a Pilates class she had a vasovagal episode and she lost her balance; however, I do notthink this is related to this meningioma. She denies any difficulty with her speech or movements with the right side of her body. She is right-handed, by the way. She denies any seizure- like episodes. She states that she had an MRI 15 years ago in [facility] for her vertigo; however, I do not have the reports for that MRI, though she states they did not report any tumors. Overall, she is healthy. She has history of hypercholesterolemia; otherwise, not on blood thinner medications. No history of strokes or heart attacks. Imaging studies were reviewed independently. This is a CTA neck including the lower half of the head and brain, which shows a left- sided sphenoid wing meningioma with a sphenoid wing lesion, which is avidly enhancing by contrast and very homogeneous in appearance. This probably reflects a meningioma. There is also some hypodensity in the surrounding temporal lobe, which is concerning for brain edema. On examination, Ms Dickerson is awake, alert, very pleasant. Extraocular movements intact. Face symmetric. No pronator drift. Speech clear and fluent. Utility Person, biceps, triceps, deltoids 5/5 bilaterally. Lower limbs appear to be full strength bilaterally. We had an extensive discussion of what this tumor may be and the treatment options. We believe thisis probably a meningioma, though we will need an MRI to better characterize this tumor. Given the size of the lesions, as well as the edema surrounding it, probably surgical resection would be the safest bet for her. We discussed about the surgery briefly. 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 We will seeher back in neurosurgery clinic with an MRI of the brain with and without contrast, as well as a CTscan of the head with contrast, BrainLAB protocol, for intraoperative navigation. We will see theseand tentatively schedule a surgical date for March. * Alex Aldridge MD - 01/15/2017 1300 EDT This office note has been dictated. documented in this encounter Consult Notes * Alex Aldridge MD - 01/15/2017 0000 EDT [facility] NEUROLOGICAL SURGERY CONSULTATION - 01/15/2017 Mariam Hernandez MD [place] [address] [place] [address] Hernandez: We had the pleasure of seeing your patient, Em Dickerson, in consultation in my neurosurgery office on 01/15/2017. She was referred to see us today through the dermatology clinic for assessment of a left sphenoid wing meningioma. Today I had the opportunity of seeing her with my neurosurgery resident, Dr Annalise Simmons. He will dictate a more complete note. I agree with his assessment and treatment plan. This woman is 66 years old. She has been followed in our dermatology clinic for malignant melanoma.During her workup in our dermatology clinic for the melanoma, she had a CT scan of the neck today. This shows a moderate-sized left sphenoid wing meningioma. She reports no symptoms that could be secondary to this meningioma. Therefore, we conclude this is an asymptomatic left sphenoid wing meningioma. Her CT scan of her neck does show the tumor in the temporal fossa. There is associated edema of thetemporal lobe. We viewed the CT scan with her and discussed the diagnosis of meningioma. Because of the size of the meningioma and the fact that it is associated with temporal lobe edema, we have recommended surgical removal. She is comfortable with this plan. Pre and postoperative care was also discussed with her. We therefore will have her undergo an MRI scan and a CT of head as part of the preoperative workup.We will schedule for surgery for early in March and I will see her for a preoperative visit at the same time as her MRI scans and CT scans are being done. We will keep you informed. Yours sincerely, Alex Aldridge MD 01 31 PM - Alex Aldridge MD en Dictation ID: [id number] cc: Mariam Hernandez MD, [address], [place] [address] documented in this encounter Plan of Treatment Not on file documented as of this encounter Procedures Procedure Name Priority Date/Time Associated Diagnosis Comments MR HEAD W/WO CONTRAST Routine 02/16/2017 13:25 EDT Meningioma (CMS-HCC) (HCC-CMS) documented in this encounter Results * MR HEAD W/WO CONTRAST (02/16/2017 13:25 EDT) Anatomical Region Laterality Modality Other 02/16/2017 13:2 5 EDT 02/18/2017 18:12 EDT Narrative 02/18/2017 18:12 EDT MR HEAD W/WO CONTRAST ??02/16/2017 1:25 PM Clinical History/Comments: D32.9-Benign neoplasm of meninges, [id number]; meningioma Comparison: Neck CT January 15, 2017. Technique: Sagittal T2 FLAIR, axial T2, T2 FLAIR, SWI, DWI and triplanar T1 pre and postcontrast MR images of the brain were obtained. Findings: Posterior to the greater wing of the sphenoid there is an avidly enhancing extra-axial mass lesion with dural tails consistent with meningioma. This measures approximately 25 x 30 x 30 mm in maximal dimensions. It does not appear significantly changed in size compared with the prior neck CT. There is a fairly large amount of surrounding white matter edema in the temporal lobe and extending into the subinsular white matter posteriorly, the posterior external capsule and the posterior limb of the internal capsule. The mass does not appear to restrict diffusion. ?? There is mild compression of the posterior body and atrium of the left lateral ventricle. There is no midline shift. The basilar cisterns are patent. Scattered punctate foci of T2 hyperintense signal are demonstrated throughout the cerebral hemispheric white matter. Most likely reflect mild small vessel ischemic change. The cisterna magna appears prominent. There is mild cerebellar vermian hypoplasia. The torcula is not elevated. 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 Flow-voids are present in the major intracranial arteries and dural venous sinuses. No orbital abnormality is demonstrated. There is minor paranasal sinus mucosal thickening present. No air-fluid levels are identified. The mastoid air cells are clear. Impression: 1. Dural based mass lesion most likely meningioma along the posterior wall of the greater wing of the sphenoid. This is not significantly changed in size compared to January [address] 2. Parenchymal vasogenic edema within the left temporal lobe, posterior insula and posterior internal and external capsules. 3. Supratentorial white matter T2 hyperintensities likely reflecting mild small vessel ischemic change. 4.. Dandy-Walker variant. 5. Mild paranasal sinus mucosal thickening. Procedure Note Tiara Ledbetter MD - 02/18/2017 MR HEAD W/WO CONTRAST 02/16/2017 1:25 PM Clinical History/Comments: D32.9-Benign neoplasm of meninges, [id number]; meningioma Comparison: Neck CT January 15, 2017. Technique: Sagittal T2 FLAIR, axial T2, T2 FLAIR, SWI, DWI and triplanar T1 pre and postcontrast MR images of the brain were obtained. Findings: Posterior to the greater wing of the sphenoid there is an avidly enhancing extra-axial mass lesion with dural tails consistent with meningioma. This measures approximately 25 x 30 x 30 mm in maximal dimensions. It does not appear significantly changed in size compared with the prior neck CT. There is a fairly large amount of surrounding white matter edema in the temporal lobe and extending into the subinsular white matter posteriorly, the posterior external capsule and the posterior limb of the internal capsule. The mass does not appear to restrict diffusion. There is mild compression of the posterior body and atrium of the left lateral ventricle. There is no midline shift. The basilar cisterns are patent. Scattered punctate foci of T2 hyperintense signal are demonstrated throughout the cerebral hemispheric white matter. Most likely reflect mild small vessel ischemic change. The cisterna magna appears prominent. There is mild cerebellar vermian hypoplasia. The torcula is not elevated. 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 Flow-voids are present in the major intracranial arteries and dural venous sinuses. No orbital abnormality is demonstrated. There is minor paranasal sinus mucosal thickening present. No air-fluid levels are identified. The mastoid air cells are clear. Impression: 1. Dural based mass lesion most likely meningioma along the posterior wall of the greater wing of the sphenoid. This is not significantly changed in size compared to January [address] 2. Parenchymal vasogenic edema within the left temporal lobe, posterior insula and posterior internal and external capsules. 3. Supratentorial white matter T2 hyperintensities likely reflecting mild small vessel ischemic change. 4.. Dandy-Walker variant. 5. Mild paranasal sinus mucosal thickening. Alex Aldridge MD IMG MRI ORDERABLES documented in this encounter Visit Diagnoses Diagnosis Meningioma ([facility])- Primary Benign neoplasm of cerebral meninges documented in this encounter Care Teams Warp Hauler Relationship Specialty Start Date End Date Mariam Hernandez MD [address] [place] [address] PCP - General 01/04/17 07/17/17 documented as of this encounter
--- OUTSIDE RECORDS SUMMARY | 2023-12-30 18:41 | XMS_ITS | Encounter Summary ---
[place] [address] Care Team Providers Care Set Making Machine Operator Name Role Phone Crystal Howell APRN Primary Care Provider [phone] Encounter Details Date Type Department Care Team (Late st Contact Info) Description 09/11/[address] [place] [address] Zeinab Adan Social History Tobacco Use Types Packs/Day Years [...] on filedocumented in this encounter Care Teams Set Making Machine Operator Relationship Specialty Start Date End Date Crystal Howell APRN [address] [place] [address] PCP - General Family Medicine 02/27/17 documented as of this encounter
--- OUTSIDE RECORDS SUMMARY | 2023-12-30 18:41 | XMS_ITS | Encounter Summary ---
Author Organization Formerly [facility] Address [facility] [place] [address] Care Team Providers Care Associate Pathologist Name Role Phone Crystal Howell APRN Primary Care Provider [phone] Encounter Details Date Type Department Care Team (Late st Contact Info) Description 02/22/2022 1:20 PM EDT [place] [address] Mani Sung MD [facility] [address] Meningioma Social History Tobacco Use Types Packs/Day [...] Mass Index 25.06 02/22/2022 1:18 PM EDT documented in this encounter Progress Notes * Scott Medina MD - 02/22/2022 1:20 PM EDT [facility] Neurosurgery Clinic Note Date & Time: 02/22/2022 1:40 PM ID: Em Dickerson, 71 y.o. female HPI: We are seeing Em Dickerson for follow up s/p meningioma resection. Patient examined in clinic with partner in company. 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 Sung) presenting for routine follow up. Reports no issues. Denies headache, nausea, vomiting, numbness, weakness, paresthesias, difficulties with balance, visual or auditory symptoms. Past Medical Hx: History reviewed. No pertinent past medical history. Past Surgical History: Procedure Laterality Date ??? PRO COLONOSCOPY, DIAGNOSTIC N/A 02/14/2015 COLONOSCOPY, DIAGNOSTIC performed by Kirsten Singleton MD at [facility] ENDOSCOPY ??? PRO EXCIS SUPRATENT MENINGIOMA Left 03/11/2017 @CRANI, FOR TUMOR, SUPRATENTORIAL, MENINGIOMA (WRVU 37.14) performed by Mani Sung MD at [facility] ??? PRO MICROSURG TECHNIQUES, REQ OPER MICROSCOPE N/A 03/11/2017 MICROSCOPE USE (WRVU 3.46) performed by Mani Sung MD at [facility] ??? PRO STEREOTACTIC CPTR ASSTD PX CRANIAL, INTRADURAL Left 03/11/2017 STEREOTACTIC COMPUTER-ASSTD NAVIGATIONAL CRANIAL INTRADURAL (WRVU 3.75) performed by Mani Sung MD at [facility] Medications: Current Outpatient Medications on File Prior to Visit Medication Sig Dispense Refill ??? fluticasone propionate (FLONASE) 50 mcg/actuation [place], Suspension SHAKE LIQUID AND USE 1 SPRAY IN EACH NOSTRIL TWICE DAILY ??? HERBAL DRUGS ORAL Take 2 tablets by mouth nightly as needed. Actually take CBD Oil Current Facility-Administered Medications on File Prior to Visit Medication Dose Route Frequency Provider Last Rate Last Admin ??? [COMPLETED] diazePAM (Valium) tablet 2 mg 2 mg Oral Q30 Min PRN Ulisses Kuo MD 2 mg at 02/22/22 1100 Allergies: Allergies Allergen Reactions ??? Iodine And Iodide Containing Products Anaphylaxis ??? Penicillins Hives ??? Macrobid [Nitrofurantoin Monohyd/M-Cryst] ??? Nitrofurantoin Other (See Comments) Stomach upset Family Hx: History reviewed. No pertinent family history. Social Hx: Social History Socioeconomic History ??? Marital status: Spouse name: None ??? Number of children: None ??? Years of education: None ??? Highest education level: None Occupational History ??? None Tobacco Use ??? Smoking status: Never Smoker ??? Smokeless tobacco: Never Used Vaping Use ??? Vaping Use: Never used Substance and Sexual Activity ??? Alcohol use: Yes Comment: 3 drinks weekly ??? Drug use: No ??? Sexual activity: None Other Topics Concern ??? None Social History Narrative ??? None Social Determinants of Health Financial Resource Strain: Not on file Food Insecurity: Not on file Transportation Needs: Not on file Physical Activity: Not on file Housing Stability: Not on file ROS: See HPI, otherwise noncontributory. Vitals: Vitals: 02/22/22 1318 BP: 152/62 BP Location (NBP): Left arm Patient Position: Sitting BP Cuff Sizes: Adult (25-34 cm) Pulse: 81 Resp: 18 Temp: 36.7 ??C (98 ??F) TempSrc: Temporal SpO2: 98% Weight: 72.6 kg (160 lb) Height: 170.2 cm (5' 7) Physical Exam: NAD Speech fluent and appropriate. PERRL. EOMI. 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 Sung) presenting for routine follow up (5 years since surgery, 1 year since last follow up) with MRI showing no changes in minimal residual in context of intact exam without any neurologic symptoms. Overall, doing well. Plan: -MRI and follow up in 2 years, then 5 years thereafter if remains stable Discussed with Dr. Sung, neurosurgery attending. Scott Medina MD 02/22/22 1:40 PM * Mani Sung MD - 02/22/2022 1:20 PM EDT I have seen the patient as part of a shared visit with Dr. Medina. Please see attached note for further details. I agree with the details as written. The assessment and plan were formulated in discussion with me and I agree with them as documented. Mani Sung MD Total visit time 10 minutes, of which 8 were spent counseling and coordinating care, including reviewing relevant imaging, lab results, and/or medical records. documented in this encounter Plan of Treatment Not on file documented as of this encounter Visit Diagnoses Diagnosis Meningioma Benign neoplasm of cerebral meninges documented in this encounter Care Teams Associate Pathologist Relationship Specialty Start Date End Date Crystal Howell APRN [address] [place] [address] PCP - General Family Medicine 02/27/17 documented as of this encounter
--- OUTSIDE RECORDS SUMMARY | 2023-12-30 18:41 | XMS_ITS | Encounter Summary ---
Author Organization [facility] Address [address] [place] [address] Care Team Providers Care Parking Technician Name Role Phone Unavailable Primary Care Provider Unavailabl e Encounter Details Date Type Department Care Team (Late st Contact Info) Description 02/26/2007 Results Only [facility] - [facility] [address] [place] [address] Radha Nunez, MANAGER CCU Social History Tobacco Use Types Packs/Day Years Used Date Smoking Tobacco: Never Assessed Sex and Gender Information Value Date Recorded Sex Assigned at Not on file Gender Identity Not on file Sexual Orientation Not on file documented as of this encounter Plan of Treatment Not on file documented as of this encounter Procedures Procedure Name Priority Date/Time Associated Diagnosis Comments CYTOPATHOLOGY Routine 02/26/2007 0:00 EDT documented in this encounter Results * CYTOPATHOLOGY (02/26/2007 0:00 EDT) Pathology Report: CYTOPATHOLOGY REPORT Reports generated via electronic interface contain original data; however they are lacking the format of the original report. Caution should be taken when reading/interpreti ng unformatted reports. Name: ? HANNAH DICKERSON ? Accession #: ? [id number] : ? 1950 (Age: 56) ??F ?Collect Date: ? 02/26/2007 Location: ? [facility] ? Receive Date: ? 02/27/2007 Provider: ?RADHA NUNEZ NP Copy to: ? Specimen/Source: ?ThinPrep Pap Test, Cervix/Endocervix, processed on [employer] ThinPrep Imaging System, with manual evaluation Last Menstrual Period: ? Other: ? HPVA - HPV testing requested if ASC-US on the current ThinPrep Pap test. ? SPECIMEN ADEQUACY ? Satisfactory for Evaluation - transformation zone component present GENERAL CATEGORIZATION ? Negative for Intraepithelial Lesion or Malignancy ? Document reviewed and electronically signed by: ? GRIS Torres(ASCP) ? Report Date: ??03/04/2007 14:22 End of Report JUSTINE CEVALLOS 02/26/2007 02/27/2007 Radha Nunez NP PATHOLOGY ORDERABLES JUSTINE CEVALLOS [address] [place] [address] documented in this encounter Visit Diagnoses Not on filedocumented in this encounter
--- OUTSIDE RECORDS SUMMARY | 2023-12-30 18:41 | XMS_ITS | Encounter Summary ---
Author Organization [facility] Address [address] [place] [address] Care Team Providers Care Hack Driver Name Role Phone Mariam Hernandez MD Primary Care Provider [phone] Reason for Visit * Reason Onset Date Comments Results 01/15/2017 Encounter Details Date Type Department Care Team (Late st Contact Info) Description 01/15/2017 Telephone [facility] Dermatology 3rd Floor [facility] [address], [place] [id number] Mervat Melo MD PhD [address] [facility], [address] [place] [address] Results Social History Tobacco Use Types Packs/Day [...] encounter Miscellaneous Notes * Telephone Encounter - Mervat Melo MD - 01/15/2017 1151 EDT Called patient and informed her of CT results showing a likely left temporal meningioma. Called neurosurg psychologist military personnel resident Rob Landin who very kindly arranged with his attending, Dr. Faye for thepatient to be seen in on EP5- neurosurgery clinic today for evaluation. I called the patient and lorelei know--she is 10 minutes away and turning around to come straight to clinic. Briefly discussed with the patient that there was no evidence of lymphadnopathy. Her meningioma is >2cm with edema therefore I advised her that Dr. Faye may recommend intervention at their discretion. IMPRESSION: ?? 1. Dural-based enhancing mass in the left middle cranial fossa with ?? adjacent edema in the left temporal lobe is almost certainly a ?? meningioma. Recommend brain MRI with brain lab protocol for further ?? characterization. ? 2. No evidence of mass or lymphadenopathy adjacent to the left ?? lateral neck skin marker. Mervat Melo MD 01/15/2017 11:58 documented in this encounter Plan of Treatment Not on file documented as of this encounter Visit Diagnoses Not on filedocumented in this encounter Care Teams Hack Driver Relationship Specialty Start Date End Date Mariam Hernandez MD [address] [place] [id number] PCP - General 01/04/17 07/17/17 documented as of this encounter
--- OUTSIDE RECORDS SUMMARY | 2023-12-30 18:42 | XMS_ITS | Encounter Summary ---
Author Organization [facility] Address [facility] [place] [address] Care Team Providers Care Freight Receiver Name Role Phone Eunice Howell APRN Primary Care Provider [phone] Reason for Visit * Reason Comments Skin Cancer Examination Encounter Details Date Type Department Care Team (Late st Contact Info) Description 02/11/2019 11:45 AM EDT Office Visit Dermatology at [facility] [address] [place] [address] Eunice Regalado MD [facility] [address] [facility] [address] Benign keratosis; Vascular lesion Social History Tobacco Use Types Packs/Day Years [...] as of this encounter Progress Notes * Eunice Regalado MD - 02/11/2019 11:45 AM EDT Images from the original note were not included. DERMATOLOGY AT [facility] Dermatology At [facility] [address] [facility] [address] FOLLOW-UP Date of service: 02/11/2019 Em Dickerson : 1950 Provider: Eunice Regalado MD Preferred name: Em Jones SKIN HISTORY: 07/2016: Left cheek, Melanoma, MIS - s/p Mohs at [facility] 08/2016 DIAGNOSIS BIOPSY: Skin, left cheek, punch ?? biopsy: Melanoma in situ, involving peripheral biopsy edges, (see Discussion). Electronically signed by: ??Patrica Evangelista MD Verified: ??07/18/2016 ?Dermatopathologist DISCUSSION There is a cellular intra-epidermal pagetoid proliferation of large, atypical ??epithelioid melanocytes, with adnexal extension. ??There are features of superficial ??spreading subtype of melanoma. ??There is prominent ?lymphohistiocytic inflammation in ??the dermis, without definitive invasion identified in the inflammation. ??As this is ??a partial sample, final staging information can be determined on examination of the ??entire lesion. ?? Chief Complaint: Full skin exam History of Present Illness Em Dickerson is a 68 y.o. year old female. Established patient, last seen January 2018. Here today for a full skin exam. She reports a scaly lesion on her right cheek that is unhealing. She first noticed this lesion 3-4 months ago. -Patient is good with applying SPF 30 and also wears protective clothing. Medical History Allergies Iodine and iodide containing products; Penicillins; and Nitrofurantoin Medications Current Outpatient Medications Medication Sig Dispense Refill ??? MAGNESIUM GLYCINATE ORAL Take by mouth daily. ??? HERBAL DRUGS ORAL Take 2 tablets by mouth nightly as needed. [facility] No current facility-administered medications for this visit. 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 Type of exam: The patient was asked to disrobe to the level of their comfort. Full skin examination of the scalp, hair, head, face, neck, back, chest, abdomen, right and left upper extremities, right and left lower extremities and buttocks was normal with the exception of the findings listed below. Significant skin findings: Right Cheek: Rough pink macule with stuck on appearance, somewhat waxy Left lateral malar: barely visible scar; no concerning pigmentation Back: Multiple, 0.3-0.5cm, medium-brown, evenly-pigmented macules and papules. No pigmented lesionssuspicious for melanoma. ASSESSMENT/PLAN: Benign keratosis / irritated SK on the right medial cheek. Patient reassured of the benign nature of this lesion. History of Melanoma in Situ- left cheek. No sign of recurrence. -Patient encouraged to monitor this lesion for any changes and return to clinic. Benign Appearing Nevi - Benign. No treatment necessary. - Reassured about benign nature and natural history. Sun Care Counseling - Discussed importance of sun protection, sun avoidance strategies, protective clothing, and sunscreen SPF 30+. - Recommend applying sunscreen SPF 30+ daily on the face, neck, and ears at least. - When going to be outdoors, we recommend at least SPF 50 sunscreen or UPF clothing. Remember to reapply sunscreen every 2 hours or after sweating or getting wet when outdoors. RTC 1 year-FSE, or sooner as needed. Reminder placed in the scheduling system. Note initiated and routed to physician for review and change by: Zeinab Viera LPN I, Zeinab Viera LPN, have performed the documentation for this encounter in the presence of and acting as a scribe for EUNICE REGALADO MD. I performed the services which were documented by the scribe, and I agree with the accuracy of the documentation in this encounter. EUNICE REGALADO MD. Eunice Regalado MD Section of Dermatology [facility] documented in this encounter Plan of Treatment Not on file documented as of this encounter Visit Diagnoses Diagnosis Benign keratosis Vascular lesion Unspecified circulatory system disorder documented in this encounter Care Teams Freight Receiver Relationship Specialty Start Date End Date Eunice Howell APRN [address] [place] [address] PCP - General Family Medicine 02/27/17 documented as of this encounter
--- OUTSIDE RECORDS SUMMARY | 2023-12-30 18:42 | XMS_ITS | Encounter Summary ---
Author Organization [facility] [place] [address] Care Team Providers Care Processing Operator Name Role Phone Crystal Howell APRN Primary Care Provider [phone] Encounter Details Date Type Department Care Team (Late st Contact Info) Description 06/10/2019 [place] [phone] Shari Brandon Social History Tobacco Use Types Packs/Day Years [...] encounter Miscellaneous Notes * Telephone Encounter - Lizeth Ann - 06/10/2019 11:05 AM EST I called Em and WALT on her personal VM letting her know that for a brain MRI she does not need to have labs done prior. There is still an automatic alert in the system when a MRI is ordered that prompts a Creatine to also be ordered but per Radiology, MRI of the brain does not require creatinine. * Telephone Encounter - Shari Brandon - 06/10/2019 10:55 AM EST Caller: Patient If not the patient: Name of caller: Relationship to patient: Personal Rep on file?: Best time to reach caller: any Best number to reach caller: [phone] (M) Reason for call: Pt calling to inquire about labs for 2 labs for MRI. Radiology informed she doesnot need labs - CT put in lab order 05/12. Which is it? Recent Surgery?: no If before 4:00 pm: Inform caller that the typical expectation for a call back is within 1-2 hours. If after 4:00 pm: Inform caller that if the nurse does not call back by the end of the day, they will be called in the AM of the next business day. documented in this encounter Plan of Treatment Not on file documented as of this encounter Visit Diagnoses Not on filedocumented in this encounter Care Teams Processing Operator Relationship Specialty Start Date End Date Crystal Howell APRN [address] [place] [address] PCP - General Family Medicine 02/27/17 documented as of this encounter
--- OUTSIDE RECORDS SUMMARY | 2023-12-30 18:42 | XMS_ITS | Encounter Summary ---
Author Organization [facility] Address [facility] [place] [address] Care Team Providers Care Tufting Machine Operator Name Role Phone Crystal Howell APRN Primary Care Provider [phone] Reason for Referral * Diagnostic Test (Routine) - Closed Specialty Diagnoses / Procedures Referred By Haseeb messina Referred To Contact Radiology Diagnoses Cerebral meningioma Procedures MRI Brain wwo Contrast (Generic) [facility] Neurosurgery [address] [place] [address] [facility] [place] [address] Referral ID Status Reason Start Date Expiration Date V isits Requested Visits Authorized [id number] Closed Specialty Service Requested 04/23/2017 04/23/2018 2 2 Encounter Details Date Type Department Care Team (Late st Contact Info) Description 04/23/2017 Orders [place] [address] Brook Evans RN Cerebral meningioma Social History Tobacco Use Types Packs/Day Years [...] Results * MRI Brain wwo Contrast (Generic) (07/11/2017 10:01 AM EST) Anatomical Region Laterality Modality Head Magnetic Resonan ce Impressions 07/11/2017 11:33 AM EST Evolution of postoperative changes status post resection of left sphenoid wing meningioma. Slightly increased prominence of dural enhancement along the left sphenoid wing may reflect reactive dural postoperative change, interval apposition of adjacent vein or residual neoplasm. Continued follow-up recommended. Narrative 07/11/2017 11:33 AM EST EXAMINATION: MRI BRAIN WWO CONTRAST (GENERIC) CLINICAL HISTORY: s/p left pterional craniotomy for sphenoid wing meningioma 03/11/17; eval for change TECHNIQUE: Routine MRI of the brain was performed before and after the intravenous administration of 15 mL Dotarem COMPARISON: MRI brain 03/22/2017 and 02/16/2017 FINDINGS: Similar changes of left pterional craniotomy for resection of sphenoid wing meningioma. Dural based enhancement along the sphenoid wing appears slightly increased. Interval evolution of postoperative changes with decreased size of extra-axial collection now minimal along the sphenoid wing. Decreased edema within the left temporal lobe, now only involving the anterior pole which may reflect gliosis. Resolution of intracranial pneumocephalus. Unchanged multiple scattered small foci of subcortical and deep white matter signal alteration likely reflecting sequela of chronic microangiopathy. Slight increased caliber of the ventricles as well as decreased left mass effect on the left lateral ventricle. Mild right frontoethmoidal recess paranasal sinus mucosal thickening and trace mucosal thickening elsewhere. The mastoid air cells are clear. The orbits are unremarkable in appearance. Procedure Note Patricia Posadas MD - 07/11/2017 EXAMINATION: MRI BRAIN WWO CONTRAST (GENERIC) CLINICAL HISTORY: s/p left pterional craniotomy for sphenoid wingmeningioma 03/11/17; eval for change TECHNIQUE: Routine MRI of the brain was performed before and after the intravenous administration of 15 mL Dotarem COMPARISON: MRI brain 03/22/2017 and 02/16/2017 FINDINGS: Similar changes of left pterional craniotomy for resection ofsphenoid wing meningioma. Dural based enhancement along the sphenoid wing appears slightly increased. Interval evolution of postoperative changes withdecreased size of extra-axial collection now minimal along the sphenoid wing.Decreased edema within the left temporal lobe, now only involving the anterior polewhich may reflect gliosis. Resolution of intracranial pneumocephalus.Unchanged multiple scattered small foci of subcortical and deep white mattersignal alteration likely reflecting sequela of chronic microangiopathy. Slight increased caliber of the ventricles as well as decreased left mass effecton the left lateral ventricle. Mild right frontoethmoidal recess paranasalsinus mucosal thickening and trace mucosal thickening elsewhere. The mastoid aircells are clear. The orbits are unremarkable in appearance. IMPRESSION Evolution of postoperative changes status post resection of left sphenoid wing meningioma. Slightly increased prominence of duralenhancement along the left sphenoid wing may reflect reactive dural postoperativechange, interval apposition of adjacent vein or residual neoplasm. Continuedfollow-up recommended. Mani Sung MD IMG MRI ORDERABLES documented in this encounter Visit Diagnoses Diagnosis Cerebral meningioma Benign neoplasm of cerebral meninges Cerebral meningioma Benign neoplasm of cerebral meninges documented in this encounter Care Teams Tufting Machine Operator Relationship Specialty Start Date End Date Crystal Howell APRN [address] [place] [address] PCP - General Family Medicine 02/27/17 documented as of this encounter
--- OUTSIDE RECORDS SUMMARY | 2023-12-30 18:42 | XMS_ITS | Encounter Summary ---
Author Organization [facility] Address [facility] [place] [address] Care Team Providers Care Principal Technical Architect Name Role Phone Crystal Howell APRN Primary Care Provider [phone] [phone] Reason for Visit * Auth/Cert Specialty Diagnoses / Procedures Referred By Haseeb messina Referred To Contact Diagnoses Benign neoplasm of meninges, unspecified MENINGIOMA Procedures PRO EXCIS SUPRATENT MENINGIOMA PRO STEREOTACTIC CPTR ASSTD PX CRANIAL, INTRADURAL PRO MICROSURG TECHNIQUES, REQ OPER MICROSCOPE @CRANI, FOR TUMOR, SUPRATENTORIAL, MENINGIOMA (WRVU 37.14) STEREOTACTIC COMPUTER-ASSTD NAVIGATIONAL CRANIAL INTRADURAL (WRVU 3.75) MODIFIER STEALTH MICROSCOPE USE (WRVU 3.46) Referral ID Status Reason Start Date Expiration Date Visits Re quested Visits Authorized [id number] 1 1 Encounter Details Date Type Department Care Team (Late st Contact Info) Description 03/11/2017 1:07 PM EST Anesthesia Event [facility] [place] [id number] Sharan Vega MD [facility] [place] [address] Rhona Blanton CRNA [facility] [place] [address] Anesthesia Record Procedure Summary Procedure Name Responsible Anesthesiologist Anesthesia Start Time Anesthesia Stop Time @CRANI, FOR TUMOR, SUPRATENTORIAL, MENINGIOMA (WRVU 37.14) (Left: Head) Sharan Vega MD 03/11/17 1307 03/11/17 1849 Events Date Time Event Comment 03/11/2017 1103 1307 Start 1310 An Start Data 1316 AN Verify 1319 An Induction 1324 An Intubation 1329 Anesthesia Ready 1710 Quick Note Arterial line t ransducer found to have dropped from adjusted height. Placed at appropriate height. 1833 Extubation/LMA Out 1838 an stop data 1849 Recovery or ICU Handoff Cara ent care was transferred to the destination unit staff after review of the patient's medical history, current anesthetic/surgical status and plan, according to the Provider Handoff Checklist. 1849 Stop Meds Name Total Midazolam 2 mg fentaNYL 200 mcg IV Lidocaine 40 mg Propofol 270 mg Rocuronium 50 mg PHENYLephrine 40 mcg Ondansetron 8 mg Dexamethasone 10 mg vancomycin 1.5 g in sodium chloride 0.9% 250 mL 1.5 g Propofol INF 937.1 mg Mannitol 20% 35 g PHENYLephrine INF 6,240 mcg lactated Ringers infusion 1,000 mL 1,000 mL Sodium Chloride 0.9% 100 mL * Agents Name Isoflurane (et) * Blood No blood administrations on file. Lines, Drains, and Airways Type Details Placement Removal (RETIRED) Peripheral IV Line - Single Lumen 03/11/17; 1114; median cubital vein (antecubital fossa), right; 20 gauge; Reddy; distraction, intradermal injection; 03/13/17; 1354 03/11/17 1114 by Becky Peñaloza RN 03/13/17 1354 by April Ignacio, RN ETT Mask Ventilation: Ea sy (1); ETT Type: Cuffed, Oral; ETT Size: 7.5 mm; Mac Blade: 3; Notes: Asleep, Pre-O2, Stylette; Attempts: 1; Laryngoscopy Grade: 1; ETT Placement Verified By: Auscultation, Capnometry, Visual; Secured at Teeth: 21 cm; Inserted by: TRISTAN Cook; Removal Date: 03/11/17; Removal Time: 183203/11/17 1324 by Marques Cook CRNA 03/11/17 1833 by Marques Cook CRNA Arterial Line 03/11/17; 1329; radi al artery, left; 20 gauge; TRISTAN Cook; Sterile Prep, Sterile Gloves; no longer indicated; 03/12/17; 0800 03/11/17 1329 by Marques Cook, TRISTAN 03/12/17 0800 by Conner Daniel RN Urethral Catheter 03/11/17; 1330; indwelling double lumen catheter; latex; 14; inserted at this facility; 1; 5; 10; none; drainage bag to dependent drainage; urethral catheter removed, tubing intact, per protocol/policy; Forte inserted using sterile technique. No resistance met. Baby shampoo used instead of betadine solution due to pt iodine allergy. ; 03/12/17; 0824 03/11/17 1330 by Faith Malone RN 03/12/17 0824 by Kortney Peoples LNA (RETIRED) Peripheral IV Line - Single Lumen 03/11/17; 1337; other (see comments) (right saphenous); rara-tbr-qkhuft catheter system; 18 gauge; 0; Removed by previous RN; 03/11/17; 1850 03/11/17 1337 by Marques Cook, TRISTAN 03/11/17 1850 by Jordan Lopez RN Incision 03/11/17; 1432; head ; 01/01/22 (LDA cleanup utility RA#[id number]); 1715 (LDA cleanup utility RA#[id number]) 03/11/17 1432 by Faith Malone RN 01/01/22 1715 by Daljit Thompson documented in this encounter Social History Tobacco Use Types Packs/Day Years Used Date Smoking Tobacco: Never Smokeless Tobacco: Never Alcohol Use Standard Drinks/Week Comments Yes 0 (1 standard drink = 0.6 oz pur e alcohol) 3 drinks weekly Sex and Gender Information Value Date Recorded Sex Assigned at Not on file Gender Identity Not on file Sexual Orientation Not on file documented as of this encounter OR Notes * Anesthesia Postprocedure Evaluation - Tejas Pederson MD - 03/14/2017 3:06 PM EST [facility] Department of Anesthesiology Post-procedure Note Patient: Linda Dickerson Procedure Summary Date Anesthesia Start Anesthesia Stop Room / Location 03/11/17 1307 1849 [facility] / [facility] Procedure Diagnosis Surgeon Responsible Provider @CRANI, FOR TUMOR, SUPRATENTORIAL, MENINGIOMA (WRVU 37.14) (Left Head); STEREOTACTIC COMPUTER-ASSTDNAVIGATIONAL CRANIAL INTRADURAL (WRVU 3.75) (Left Head); MODIFIER STEALTH (N/A Head); MICROSCOPE USE (WRVU 3.46) (N/A Head) (MENINGIOMA) Mani Sung MD Evans, Rebecca E, MD All Anesthesia Providers: Anesthesiologist: Tejsa Pederson MD; Sharan Vega MD GANG RIDER: Marques Cook CRNA Most Recent Vitals: 03/13/17 0800 BP: 153/78 Pulse: 80 Resp: 18 Temp: 36.5 ??C (97.7 ??F) SpO2: 100% Pain ANES POST EVAL * Anesthesia Postprocedure Evaluation - Tejas Pederson MD - 03/11/2017 9:14 PM EST [facility] [place] Department of Anesthesiology Post-procedure Note Patient: Linda Dickerson Procedure Summary Date Anesthesia Start Anesthesia Stop Room / Location 03/11/177 1849 [facility] / [facility] Procedure Diagnosis Surgeon Responsible Provider @CRANI, FOR TUMOR, SUPRATENTORIAL, MENINGIOMA (WRVU 37.14) (Left Head); STEREOTACTIC COMPUTER-ASSTDNAVIGATIONAL CRANIAL INTRADURAL (WRVU 3.75) (Left Head); MODIFIER STEALTH (N/A Head); MICROSCOPE USE (WRVU 3.46) (N/A Head) (MENINGIOMA) Mani Sung MD Evans, Rebecca E, MD All Anesthesia Providers: Anesthesiologist: Tejas Pederson MD; Sharan Vega MD GANG RIDER: Marques Cook GANG RIDER Most Recent Vitals: 03/11/17 1900 BP: Pulse: 69 Resp: 17 Temp: SpO2: 100% Pain Patient Location: ICU Level of Consciousness: Conscious but Sleepy Pain Management: Satisfactory Analgesia PONV: None Cardiovascular Status: At Baseline and Hemodynamically Stable Respiratory Status: Room Air and Supplemental O2 (NC or FM) Postoperative Fluid Status: Intravascular EUvolemia Possible Anesthetic Complications: NONE apparent at time of evaluation Final Primary Anesthesia Type: General (The anesthetic type performed was the same as planned.) Comments: SHARAN VEGA MD * Anesthesia Preprocedure Evaluation - Tejas Pederson MD - 03/11/2017 9:36 AM EST Pre-Anesthesia Evaluation for: Linda Dickerson a 66 y.o. female. Procedure(s): @CRANI, FOR TUMOR, SUPRATENTORIAL, MENINGIOMA (WRVU 37.14) STEREOTACTIC COMPUTER-ASSTD NAVIGATIONAL CRANIAL INTRADURAL (WRVU 3.75) MODIFIER STEALTH MICROSCOPE USE (WRVU 3.46) Patient Active Problem List Diagnosis ??? Melanoma in situ ??? Hypothyroidism ??? Meningioma ??? Stenosis of lateral recess of lumbar spine ??? Claudication leg paresthesias No past medical history on file. Past Surgical History: Procedure Laterality Date ??? PRO COLONOSCOPY, DIAGNOSTIC N/A 02/14/2015 COLONOSCOPY, DIAGNOSTIC performed by Kirsten Singleton MD at [facility] Social History Substance Use Topics ??? Smoking status: Never Smoker ??? Smokeless tobacco: Never Used ??? Alcohol use Yes Comment: 3 drinks weekly History Drug Use No Allergies Allergen Reactions ??? Iodine And Iodide Containing Products Anaphylaxis ??? Penicillins Hives ??? Nitrofurantoin Other (See Comments) Stomach upset Medications: MAR and/or home medications have been reviewed. Physical Exam: There were no vitals filed for this visit. There is no height or weight on file to calculate BMI. 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 In workup for cheek melanoma, incidental finding of intracranial left sphenoid wing dural-based mass. She denies headache, vision changes, speech difficulty, weakness, numbness. She has noted flashes of light at night, and this was evaluated by her insurance claim auditor who felt it was related to age-related changes in her eye. on exam, her neurological exam is unremarkable Anesthetic alternatives (where appropriate), procedures, risks (from common and minor to rare and and major) and consent for anesthesia were reviewed. The patient accepts that additional procedures and/or escalation of care may be necessary as dictated by the course of the procedure/anesthetic. Has tolerated GA with in past. All questions have been answered and the consent form signed. There are no pertinent advance directives. Plan: GA/ a line; ;IV induction;routine monitors. Region - Intracranial (non-vascular) Informed Consent: Anesthetic plan and risks discussed with patient. Plan discussed with GANG RIDER. PAT Staff Note documented in this encounter Plan of Treatment Not on file documented as of this encounter Visit Diagnoses Not on filedocumented in this encounter Administered Medications Inactive Administered Medications - up to 3 most recent administrations Medication Order MAR Action Action Date Dose Rate Site dexamethasone (DECADRON) injection PRN, Starting on Sat03/11/17 at 1350, Until Sat03/11/17 at 1905, Anesthesia Intra-op, Routine Given 03/11/2017 2:46 PM EST 2 mg Given 03/11/2017 1:50 PM EST 8 mg fentaNYL 50 mcg/mL multi-dose injection PRN, Starting on Sat03/11/17 at 1318, Until Sat03/11/17 at 1905, Pain, Anesthesia Intra-op, Routine Given 03/11/2017 2:39 PM EST 100 mcg Given 03/11/2017 1:18 PM EST 100 mcg lactated Ringers infusion 1,000 mL 1,000 mL, at 100 mL/hr, Intravenous, CONTINUOUS, Starting on Sat03/11/17 at 1130, Until Sat03/11/17 at 1900, Day of Surgery (Day of Procedure) New Bag 03/11/2017 4:27 PM EST New Bag 03/11/2017 3:15 PM EST New Bag 03/11/2017 12:04 PM EST lidocaine (PF) (XYLOCAINE) 100 mg/5 mL (2 %) injection PRN, Starting on Sat03/11/17 at 1318, Until Sat03/11/17 at 1905, Anesthesia Intra-op, Routine Given 03/11/2017 1:18 PM EST 40 mg mannitol (50 grams and over) 100 g/500 mL (20%) infusion PRN, Starting on Sat03/11/17 at 1440, Until Sat03/11/17 at 1905, Anesthesia Intra-op Given 03/11/2017 2:40 PM EST 35 g midazolam (PF) (VERSED) 1 mg/mL multi-dose injection PRN, Starting on Sat03/11/17 at 1307, Until Sat03/11/17 at 1905, Sleep, Anesthesia Intra-op, Routine Given 03/11/2017 1:56 PM EST 1 mg Given 03/11/2017 1:07 PM EST 1 mg ondansetron (ZOFRAN) injection PRN, Starting on Sat03/11/17 at 1812, Until Sat03/11/17 at 1905, Nausea, Anesthesia Intra-op, Routine Given 03/11/2017 6:12 PM EST 8 mg PHENYLephrine (JANINE-SYNEPHRINE) 20 mg in sodium chloride 250 mL (standard ADULT & Pedi greater than 20kg) infusion CONTINUOUS PRN, Starting on Sat03/11/17 at 1525, Until Sat03/11/17 at 1905, Anesthesia Intra-op, Routine Rate/Dose Change 03/11/2017 6:17 PM EST 20 mcg/min 15 mL/hr Rate/Dose Change 03/11/2017 4:40 PM EST 40 mcg/min 30 mL/h r Rate/Dose Change 03/11/2017 4:00 PM EST 20 mcg/min 15 mL/h r PHENYLephrine HCl in NS (PF) (JANINE-SYNEPHRINE) 0.8 mg/10 mL (80 mcg/mL) multi-dose injection Syrg PRN, Starting on Sat03/11/17 at 1500, Until Sat03/11/17 at 1905, Anesthesia Intra-op, Routine Given 03/11/2017 3:00 PM EST 40 mcg propofol (DIPRIVAN) 10 mg/mL bolus injection (Anesthesia) PRN, Starting on Sat03/11/17 at 1353, Until Sat03/11/17 at 1905, Anesthesia Intra-op Given 03/11/2017 1:53 PM EST 70 mg Given 03/11/2017 1:19 PM EST 200 mg propofol (DIPRIVAN) infusion CONTINUOUS PRN, Starting on Sat03/11/17 at 1350, Until Sat03/11/17 at 1905, Anesthesia Intra-op, Routine Rate/Dose Change 03/11/2017 2:11 PM EST 50 mcg/kg/min 21.1 mL/hr New Bag 03/11/2017 1:50 PM EST 30 mcg/kg/min 12.7 mL/hr rocuronium (ZEMURON) multi-dose injection PRN, Starting on Sat03/11/17 at 1359, Until Sat03/11/17 at 1905, Anesthesia Intra-op, Routine Given 03/11/2017 1:59 PM EST 10 mg Given 03/11/2017 1:20 PM EST 40 mg sodium chloride 0.9% infusion CONTINUOUS PRN, Starting on Sat03/11/17 at 1329, Until Sat03/11/17 at 1905, Anesthesia Intra-op New Bag 03/11/2017 1:29 PM EST vancomycin 1.5 g in sodium chloride 0.9% 250 mL 1.5 g, Intravenous, at 166.7 mL/hr, ONCE, 1 dose, On Sat03/11/17 at 1230, Maximum infusion rate is 1 gram/hour. If flushing of the face, neck, upper body, arms, and/or back occurs decrease infusion rate by 50% to reduce the severity of symptoms. This medication may have an associated drug lab level. Please see MAR for scheduled level. Warning Vesicant/Irritant Medication , Routine Given 03/11/2017 1:48 PM EST 1.5 g documented in this encounter Care Teams Principal Technical Architect Relationship Specialty Start Date End Date Crystal Howell APRN [address] [place] [address] PCP - General Family Medicine 02/27/17 documented as of this encounter
--- OUTSIDE RECORDS SUMMARY | 2023-12-30 18:42 | XMS_ITS | Encounter Summary ---
Author Organization [facility] Address [facility] [place] [address] Care Team Providers Care Cardiopulmonary Technician And Eeg Tech Name Role Phone Crystal Howell APRN Primary Care Provider [phone] Reason for Visit * Diagnostic Test (Routine) - Closed Specialty Diagnoses / Procedures Referred By Haseeb messina Referred To Contact Radiology Diagnoses Meningioma Procedures MRI Brain wwo Contrast (Generic) Mani Sung MD [facility] [place] [address] [place] [address] Referral ID Status Reason Start Date Expiration Date V isits Requested Visits Authorized [id number] Closed Specialty Service Requested 05/12/2019 11/09/2020 1 1 Encounter Details Date Type Department Care Team (Latest Contact Info) Description 06/11/2019 12:09 PM EST - 06/11/2019 11:59 PM EST [place] [address] Mani Sung MD [facility] [place] [address] Discharge Disposition: Home Social History [...] Sig Dispensed Refills Start Date End Date HERBAL DRUGS ORAL Take 2 tablets by mouth nightly as needed. Actually take CBD Oil 09/17/2023 documented as of this encounter Plan of Treatment Not on file documented as of this encounter Procedures Procedure Name Priority Date/Time Associated Diagnosis Comments MRI BRAIN WWO CONTRAST (GENERIC) Routine 06/11/2019 2:26 PM EST Meningioma documented in this encounter Visit Diagnoses Not on filedocumented in this encounter Administered Medications Inactive Administered Medications - up to 3 most recent administrations Medication Order MAR Action Action Date Dose Rate Site gadoterate meglumine (DOTAREM) 0.5 mmol/mL (376.9 mg/mL) injection 0.2 mL/kg/dose 0.2 mL/kg/dose, Intravenous, ONCE PRN, 1 dose, Starting on [place] 06/11/19 at 1422, Until [place] 06/11/19 at 1415, Per Protocol, Radiology Contrast, Routine Given 06/11/2019 2:15 PM EST 14 mLs documented in this encounter Care Teams Cardiopulmonary Technician And Eeg Tech Relationship Specialty Start Date End Date Crystal Howell APRN [address] [place] [address] PCP - General Family Medicine 02/27/17 documented as of this encounter
--- OUTSIDE RECORDS SUMMARY | 2023-12-30 18:42 | XMS_ITS | Encounter Summary ---
Author Organization [facility] Address [facility] [place] [address] Care Team Providers Care Edge Stitcher Name Role Phone Crystal Howell APRN Primary Care Provider [phone] Reason for Visit * Diagnostic Test (Routine) - Closed Specialty Diagnoses / Procedures Referred By Haseeb messina Referred To Contact Radiology Diagnoses Cerebral meningioma Procedures MRI Brain wwo Contrast (Generic) [facility] [address] [place] [address] [facility] [place] [address] Referral ID Status Reason Start Date Expiration Date V isits Requested Visits Authorized [id number] Closed Specialty Service Requested 04/23/2017 04/23/2018 2 2 Encounter Details Date Type Department Care Team (Latest Contact Info) Description 07/11/2017 7:57 AM EST - 07/11/2017 11:59 PM EST Hospital [place] [address] Mani Sung MD [facility] [place] [address] Discharge Disposition: Home Social History [...] Comments MRI BRAIN WWO CONTRAST (GENERIC) Routine 07/11/2017 10:01 AM EST Cerebral meningioma documented in this encounter Visit Diagnoses Not on filedocumented in this encounter Administered Medications Inactive Administered Medications - up to 3 most recent administrations Medication Order MAR Action Action Date Dose Rate Site gadoterate meglumine (DOTAREM) 0.5 mmol/mL injection 0-20 mL/kg 0-20 mL/kg/dose, Intravenous, ONCE PRN, 1 dose, Starting on [place] 07/11/17 at 0944, Until [place] 07/11/17 at 0944, Per Protocol, Radiology Contrast, Routine Given 07/11/2017 9:44 AM EST 15 mLs documented in this encounter Care Teams Edge Stitcher Relationship Specialty Start Date End Date Crystal Howell APRN [address] [place] [address] PCP - General Family Medicine 02/27/17 documented as of this encounter
--- OUTSIDE RECORDS SUMMARY | 2023-12-30 18:42 | XMS_ITS | Encounter Summary ---
[place] [address] Care Team Providers Care Machine Shop Specialist Name Role Phone Crystal Howell APRN Primary Care Provider [phone] Encounter Details Date Type Department Care Team (Late st Contact Info) Description 04/10/2018 [place] [id number] Melita Oviedo Social History Tobacco Use Types Packs/Day Years [...] encounter Miscellaneous Notes * Telephone Encounter - Melita Oviedo - 04/10/2018 4:00 PM EST Recall entered * Telephone Encounter - Melita Oviedo - 04/10/2018 3:55 PM EST Patient needs f/u appointment(s): With MATTIE on/around 04/10/19 1 yr OV, s/p Meningioma 03/11/17 , MRI to be scheduled prior * Telephone Encounter - Melita Oviedo - 04/10/2018 3:55 PM EST ----- Message from Mani Sung MD sent at 04/10/2018 1:10 PM EST ----- F/u 1 year w/ MRI documented in this encounter Plan of Treatment Not on file documented as of this encounter Visit Diagnoses Not on filedocumented in this encounter Care Teams Machine Shop Specialist Relationship Specialty Start Date End Date Crystal Howell APRN [address] [place] [address] PCP - General Family Medicine 02/27/17 documented as of this encounter
--- OUTSIDE RECORDS SUMMARY | 2023-12-30 18:42 | XMS_ITS | Encounter Summary ---
Author Organization [facility] Address [facility] [place] [address] Care Team Providers Care Roller Billet Mill Name Role Phone Crystal Howell APRN Primary Care Provider [phone] [phone] Reason for Visit * Reason Comments Follow-up s/p meningioma with MRI brain prior Encounter Details Date Type Department Care Team (Late st Contact Info) Description 04/10/2018 11:00 AM EST Office [place] [address] Mani Sung MD [facility] [place] [address] Meningioma Social History Tobacco Use Types Packs/Day [...] Sign Reading Time Taken Comments Blood Pressure 129/62 04/10/2018 10:57 AM EST Pulse 73 04/10/2018 10:57 AM EST Temperature - - Respiratory Rate - - Oxygen Saturation - - Inhaled Oxygen Concentration - - Weight 71.2 kg (157 lb) 04/10/2018 10:57 AM EST Height 170.2 cm (5' 7) 04/10/2018 10:57 AM EST Body Mass Index 24.59 04/10/2018 10:57 AM EST documented in this encounter Progress Notes * Mani Sung MD - 04/10/2018 11:00 AM EST Neurosurgery Clinic Note ?? Em Dickerson??is a 67 y.o.??woman with 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 She was last seen on 10/15/2017. Since she was last seen she reports she has been doing well and she has no specific concerns today. ?? Her neurological exam is unremarkable. ?? Prior MRIs demonstrated left temporal pole dural thickening/enhancement, and this has been followedin July 2017 and October 2017. She underwent an MRI today, which was reviewed in detail. This region again demonstrates enhancement at the temporal pole, but no new areas of enhancement to suggest recurrent tumor. Thus, while we need to continue surveillance, we can space this out to 1 year. We will plan to see her back with another clinic visit and MRI in 12months, earlier should any new symptoms arise. She indicated understanding and agreement with this plan. ?? Mani Sung MD ?? Total visit time 20 minutes, of which 15 were spent counseling and coordinating care, including reviewing relevant imaging, lab results, and/or medical records. documented in this encounter Plan of Treatment Not on file documented as of this encounter Visit Diagnoses Diagnosis Meningioma Benign neoplasm of cerebral meninges documented in this encounter Care Teams Roller Billet Mill Relationship Specialty Start Date End Date Crystal Howell APRN [address] [place] [address] PCP - General Family Medicine 02/27/17 documented as of this encounter
--- OUTSIDE RECORDS SUMMARY | 2023-12-30 18:42 | XMS_ITS | Encounter Summary ---
[place] [address] Care Team Providers Care Project Admin Name Role Phone Crystal Howell APRN Primary Care Provider [phone] [phone] Encounter Details Date Type Department Care Team (Late st Contact Info) Description 03/18/2017 [place] [id number] Brook Evans RN Social History Tobacco Use [...] encounter Miscellaneous Notes * Telephone Encounter - Brook Evans RN - 03/18/2017 3:38 PM EST F/U call s/p left pterional craniotomy for sphenoid wing meningioma on 03/11/[address] Sung Date: 03/18/17 Neuro: alert and oriented: yes Dizzy or lightheaded: denies Numbness/tingling/weakness: denies Ambulation: steady Vision: clear Speech: clear Hearing: good Incision: looks good, absorbable sutures Pain: taking ES Tylenol 500 mg twice a day.for scalp sensations PO: eating and drinking well B&B: working well Sleep: good, wakes at 3 am but gets back to sleep, naps during the day Other: documented in this encounter Plan of Treatment Not on file documented as of this encounter Visit Diagnoses Not on filedocumented in this encounter Care Teams Project Admin Relationship Specialty Start Date End Date Crystal Howell APRN [address] [place] [address] PCP - General Family Medicine 02/27/17 documented as of this encounter
--- OUTSIDE RECORDS SUMMARY | 2023-12-30 18:42 | XMS_ITS | Encounter Summary ---
Author Organization [facility] Address [facility] [place] [address] Care Team Providers Care Concrete Spreader Name Role Phone Eunice Howell APRN Primary Care Provider [phone] [phone] Reason for Visit * Reason Comments Skin Check Encounter Details Date Type Department Care Team (Late st Contact Info) Description 01/10/2018 9:00 AM EDT Office Visit Dermatology at [facility] [address] [place] [address] Eunice Regalado MD [facility] [address] [place] [address] Seborrheic keratosis, inflamed; Green angioma; Cafe au lait spots; Ephelides; Dermatofibroma; Benign nevus; Hx of melanoma in situ Social History Tobacco Use Types Packs/Day Years [...] Progress Notes * Eunice Regalado MD - 01/10/2018 9:00 AM EDT Images from the original note were not included. DERMATOLOGY AT [facility] Dermatology [address] [facility] [address] FOLLOW-UP Date of service: 01/10/2018 Em Dickerson : 1950 Provider: Eunice Regalado MD Preferred name: Em SKIN HISTORY: 07/2016: Left cheek, Melanoma, MIS - s/p Mohs at [facility] 08/2016 DIAGNOSIS Skin, left cheek, punch ?? biopsy: Melanoma [...] determined on examination of the ??entire lesion. Chief Complaint: Full Skin Exam History of Present Illness Em Dickerson is a 67 y.o. year old female. Established patient, last seen 07/17/[address] Cha. Patient had a melanoma in situ, Left cheek.. Patient did Mohs surgery at [facility] in August 2016 and is here today for a full skin exam. Concerning spots today on the right cheek that the patient describes as scaly and does not go away for about the last 3-6 months. Allergies Iodine and iodide containing products; Penicillins; and Nitrofurantoin Medications Current Outpatient Prescriptions Medication Sig Dispense Refill ??? MAGNESIUM GLYCINATE ORAL Take by mouth daily. ??? HERBAL DRUGS ORAL Take 2 tablets by mouth nightly as needed. MID NITE SLEEP AID No current facility-administered medications for this visit. 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 Type of exam: Complete skin exam including scalp, face, ears, neck, arms, hands, back, anterior trunk, buttocks, legs, feet. Genitalia not examined. Significant skin findings: ?? Two slightly rough 1mm & 2mm pink papules on the right malar cheek. ?? Barely visible scar on the left cheek, no cervical or submandibular adenopathy ?? Multiple 0.2-0.4cm bright red, well-demarcated papules on the back. ?? Hyperpigmented vazquez patch on the low back. ?? Scattered light brown macules. ?? Right lower leg: firm papule, centrally raised and sclerotic, with peripheral hyperpigmentation and dimpling with lateral pressure. ?? Multiple, 0.3-0.5cm, medium-brown, evenly-pigmented macules and papules - including on the back.No pigmented lesions suspicious for melanoma. ?? No evidence of recurrence in scars on the right cheek. ASSESSMENT/PLAN: Irritated Seborrheic Keratoses Procedure Note: Procedure: Destruction of lesions with cryotherapy. Number: 1, right mid cheek Location: as above Discussed procedure and expectations including risks (including risk of hypopigmentation) and benefits. Verbal consent obtained. Frozen with LN2, 15-30 second thaw time, TWICE. There were no complications; the patient tolerated the procedure well. Post-procedure expectations and wound care were reviewed. Green Angiomas Benign. No treatment necessary. ?? Reassured about benign nature and natural history. Cafe Au Lait Macules Benign. No treatment necessary. ?? Reassured about benign nature and natural history. Ephelides Benign. No treatment necessary. ?? Reassured about benign nature and natural history. Dermatofibroma Benign. No treatment necessary. ?? Reassured about benign nature and natural history. Benign Appearing Nevi Benign. No treatment necessary. ?? Reassured about benign nature and natural history. H/o Melanoma in situ No evidence of recurrence. Sun Care Counseling ?? Discussed importance of sun protection, sun avoidance strategies, protective clothing, and sunscreen SPF 30+. ?? Recommend applying sunscreen SPF 30+ daily on the face, neck, and ears at least. ?? When going to be outdoors, we recommend at least SPF 50 sunscreen or UPF clothing. Remember to reapply sunscreen every 2 hours or after sweating or getting wet when outdoors. RTC January 2019 for 1 year full skin exam, hx MIS - or sooner as needed. Note initiated and routed to physician for review and change by: Florecita Franz, CLARICE I, La Nena Elmore, have performed the documentation for this encounter in the presence of and acting as a scribe for EUNICE REGALADO MD. I, Dr. Eunice Regalado, performed the visit service though my nurse assisted me in scribing the note. Ireviewed and edited this note above, a scribed service performed by my nurse. On closure of this note I agree with the accuracy of the documentation. Eunice Regalado MD Section of Dermatology [facility] documented in this encounter Plan of Treatment Not on file documented as of this encounter Visit Diagnoses Diagnosis Seborrheic keratosis, inflamed Inflamed seborrheic keratosis Green angioma Nevus, non-neoplastic Cafe au lait spots Ephelides Other dyschromia Dermatofibroma Benign neoplasm of skin, site unspecified Benign nevus Benign neoplasm of skin, site unspecified Hx of melanoma in situ Personal history of malignant melanoma of skin documented in this encounter Care Teams Concrete Spreader Relationship Specialty Start Date End Date Eunice Howell, SAJAN [address] [place] [address] PCP - General Family Medicine 02/27/17 documented as of this encounter
--- OUTSIDE RECORDS SUMMARY | 2023-12-30 18:42 | XMS_ITS | Encounter Summary ---
Author Organization [facility] Address [facility] [place] [address] Care Team Providers Care Emergency Management Consultant Name Role Phone Crystal Howell APRN Primary Care Provider [phone] Reason for Visit * Reason Comments Follow-up Encounter Details Date Type Department Care Team (Late st Contact Info) Description 04/11/2017 9:30 AM EST [place] [address] Mani Sung MD [facility] [place] [address] Meningioma Social History Tobacco Use Types Packs/Day [...] Sign Reading Time Taken Comments Blood Pressure 155/70 04/11/2017 9:36 AM EST Pulse 71 04/11/2017 9:36 AM EST Temperature - - Respiratory Rate - - Oxygen Saturation - - Inhaled Oxygen Concentration - - Weight 71.2 kg (157 lb) 04/11/2017 9:36 AM EST Height 170.2 cm (5' 7) 04/11/2017 9:36 AM EST Body Mass Index 24.59 04/11/2017 9:36 AM EST documented in this encounter Progress Notes * Mani Sung MD - 04/11/2017 9:30 AM EST Neurosurgery Clinic Note Em Dickerson is a 66 yo woman with 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 She reports she has been doing well since surgery. She has tapered off the steroids and continues on keppra. She denies seizure activity, strength changes, sensory changes, and vision changes. On exam, sheis wide awake, oriented x3, CN II-XII intact, strength full. Incision is healing well. We discussed her pathology results and the natural history of WHO grade I meningioma. She will require continued follow up to evaluate for any recurrent tumor. We will plan first imaging in 3 months.If that appears stable, we can consider spacing out imaging to 6 months and then annually. She indicated her agreement with this plan and will be in contact earlier should any new issues arise. Mani Sung MD Attestation: Total visit time 20 minutes with 15 minutes spent counseling patient on management of brain tumor and post-operative care. documented in this encounter Plan of Treatment Not on file documented as of this encounter Visit Diagnoses Diagnosis Meningioma Benign neoplasm of cerebral meninges documented in this encounter Care Teams Emergency Management Consultant Relationship Specialty Start Date End Date Crystal Howell APRN [address] [place] [address] PCP - General Family Medicine 02/27/17 documented as of this encounter
--- OUTSIDE RECORDS SUMMARY | 2023-12-30 18:42 | XMS_ITS | Encounter Summary ---
Author Organization [facility] Address [facility] [place] [address] Care Team Providers Care Flat Cutter Name Role Phone Crystal Howell APRN Primary Care Provider [phone] [phone] Reason for Visit * Reason Comments Follow-up Encounter Details Date Type Department Care Team (Late st Contact Info) Description 06/11/2019 3:40 PM EST Office [place] [id number] Mani Sung MD [facility] [place] [address] Meningioma Social History Tobacco Use Types Packs/Day [...] Sign Reading Time Taken Comments Blood Pressure 138/66 06/11/2019 3:42 PM EST Pulse 77 06/11/2019 3:42 PM EST Temperature - - Respiratory Rate - - Oxygen Saturation - - Inhaled Oxygen Concentration - - Weight 69.4 kg (153 lb) 06/11/2019 3:42 PM EST Height 170.2 cm (5' 7) 06/11/2019 3:42 PM EST Body Mass Index 23.96 06/11/2019 3:42 PM EST documented in this encounter Progress Notes * Mani Sung MD - 06/11/2019 3:40 PM EST Neurosurgery Clinic Note ?? 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 Since she was last seen she reports continues to do well. ?? Her neurological exam is unremarkable. ?? Prior MRIs demonstrated left temporal pole dural thickening/enhancement, and this has been followedin July 2017, October 2017 and April 2018. She underwent a surveillance MRI today, which remains stable. We discussed the rationale for continued surveillance and we will plan on a visit in a year with repeat MRI at that time, earlier should any new symptoms arise. She indicated understanding and agreement with this plan.? Mani Sung MD ?? Total visit time??20??minutes, of which 15??were spent counseling and coordinating care, including reviewing relevant imaging, lab results, and/or medical records. documented in this encounter Plan of Treatment Not on file documented as of this encounter Visit Diagnoses Diagnosis Meningioma Benign neoplasm of cerebral meninges documented in this encounter Care Teams Flat Cutter Relationship Specialty Start Date End Date Crystal Howell APRN [address] [place] [address] PCP - General Family Medicine 02/27/17 documented as of this encounter
--- OUTSIDE RECORDS SUMMARY | 2023-12-30 18:42 | XMS_ITS | Encounter Summary ---
Author Organization [facility] [place] [address] Care Team Providers Care Copra Processor Name Role Phone Crystal Howell APRN Primary Care Provider [phone] [phone] Encounter Details Date Type Department Care Team (Late st Contact Info) Description 04/23/2017 Telephone [place] [id number] Zeinab Braga Social History Tobacco Use Types Packs/Day Years [...] * Telephone Encounter - Riya Call - 04/24/2017 11:37 AM EST Patient scheduled for 07/[address] Sung. Mailing appointment card. * Telephone Encounter - Riya Call - 04/24/2017 11:07 AM EST LM=for patient to schedule 3 mo f/u see previous message, need MRI safety questions & schedule beginning of July with MATTIE. * Telephone Encounter - Antony Hargrove - 04/23/2017 11:55 AM EST Order has been entered. * Telephone Encounter - Zeinab Braga - 04/23/2017 10:34 AM EST Patient needs f/u with JPA on/around 07/10/17 3 mo f/u, tumor recurrence MRI prior (Staff message sent to nurse to enter order) * Telephone Encounter - Zeinab Braga - 04/23/2017 10:33 AM EST Images from the original note were not included. Mani Sung MD ?? Sent: [facility] April 11, 2017 10:09 AM ? To: Nina Grayson Neurosurgery [place] ?? Em Dickerson ( ) : 1950 ? Follow-up and Disposition ? Return in about 3 months (around 07/10/2017) for eval for tumor recurrence WITH MRI brain +/- contrast. documented in this encounter Plan of Treatment Not on file documented as of this encounter Visit Diagnoses Not on filedocumented in this encounter Care Teams Copra Processor Relationship Specialty Start Date End Date Crystal Howell APRN [address] [place] [address] PCP - General Family Medicine 02/27/17 documented as of this encounter
--- OUTSIDE RECORDS SUMMARY | 2023-12-30 18:42 | XMS_ITS | Encounter Summary ---
Author [facility] [place] [address] Care Team Providers Care Dentistry Professor Name Role Phone Crystal Howell APRN Primary Care Provider [phone] [phone] Encounter Details Date Type Department Care Team (Late st Contact Info) Description 07/11/2017 Telephone [place] [address] Merary Sim Social History Tobacco Use Types Packs/Day Years [...] encounter Miscellaneous Notes * Telephone Encounter - Merary Sim - 08/21/2017 8:53 AM EDT Appt scheduled, appt card in the mail * Telephone Encounter - Arpita Reveles - 08/16/2017 2:01 PM EDT Called pt's home phone. Line kept ringing and was not able to leave a VM * Telephone Encounter - Merary Sim - 08/09/2017 3:54 PM EDT RN: please order necessary MRI for f/u * Telephone Encounter - Merary Sim - 07/11/2017 4:47 PM EST Patient needs f/u appointment(s): With JPA on/around 10/11 3 months f/u, s/p s/p left pterional craniotomy for Meningioma resection , MRI prior * Telephone Encounter - Merary Sim - 07/11/2017 4:47 PM EST Images from the original note were not included. Mani Sung MD ?? Sent: [facility] July 11, 2017 11:39 AM ? To: Nina Grayson Neurosurgery Accounting Professional ?? Tuan Em Eli ( ) : 1950 ? Follow-up and Disposition ? Return in about 3 months (around 10/11/2017) for with MRI +/- contrast to eval for tumor recurrence. documented in this encounter Plan of Treatment Not on file documented as of this encounter Visit Diagnoses Not on filedocumented in this encounter Care Teams Dentistry Professor Relationship Specialty Start Date End Date Crystal Howell, PENOLOGY PROFESSOR [address] [place] [address] PCP - General Family Medicine 02/27/17 documented as of this encounter
--- OUTSIDE RECORDS SUMMARY | 2023-12-30 18:42 | XMS_ITS | Encounter Summary ---
Author Organization [facility] Address [facility] [place] [address] Care Team Providers Care Sports Anchor Name Role Phone Eunice Howell APRN Primary Care Provider [phone] [phone] Encounter Details Date Type Department Care Team (Late st Contact Info) Description 12/02/2020 11:00 AM EDT Office Visit Dermatology at [facility] [address] [place] [address] Eunice Regalado MD [facility] [address] [place] [address] Seborrheic keratoses; Multiple benign nevi; History of melanoma in situ Social History Tobacco [...] Progress Notes * Eunice Regalado MD - 12/02/2020 11:00 AM EDT Images from the original note were not included. 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 PRE-PROCEDURE SCREENING If no, type N. If yes, include details below Allergy to lidocaine, epinephrine, Dermabond, chlorhexidine, or adhesives: Bleeding disorder or blood thinners: Pacemaker, defibrillator, deep brain stimulator, cochlear implant: History of Present Illness: Em Dickerson is a 70 y.o. year old. Patient returns to clinic today fora full skin exam, She has not noted any other new, growing, changing, bleeding, painful or otherwise symptomatic moles or other lesions. She has not noted any other changes in any preexisting lesions. Last visit at [facility] Derm: 02/11/2019 Last visit with this provider: 02/11/2019 Medications: Reviewed in eD-H Allergies: Reviewed in [...] and lower extremities.Genitalia was not examined. Assessment/Plan History of MIS - well healed scar on the left cheek. - NER - Patient encouraged to monitor this lesion for any changes and return to clinic. Benign Nevi - Scattered light to medium brown macules on the trunk and extremities with reassuring pigment pattern on dermoscopy. Flesh colored papule on the occipital scalp. Uniform colored brown macule behind the left ear. - Reassured of benign appearance on exam today. - Advised patient to watch for any new or changing lesions. - Reviewed warning signs of skin cancer. Seborrheic Keratoses - stuck on, waxy papules on the trunk and extremities - Benign. No treatment needed. Other items to document in the assessment/plan if relevant ??? Sun protection discussed (protective clothing and SPF30+ broad-spectrum sunscreen) RTC: 1 year [address] FSE with Dr. Holland [x]Note routed to log sorting supervisor []Recall has been placed in scheduling system []Appointment scheduled at checkout Scribe attestation: Nancy Fields CMA and Mare Hernández have performed the documentation for this encounter in the presence of and acting as a scribe for EUNICE REGALADO MD I performed the above scribed service and agree with the accuracy of the documentation in this encounter. Reviewed and signed by: EUNICE REGALADO MD Dermatology [facility] documented in this encounter Plan of Treatment Not on file documented as of this encounter Visit Diagnoses Diagnosis Seborrheic keratoses Multiple benign nevi Benign neoplasm of skin, site unspecified History of melanoma in situ Personal history of malignant melanoma of skin documented in this encounter Care Teams Sports Anchor Relationship Specialty Start Date End Date Eunice Howell APRN [address] [place] [address] PCP - General Family Medicine 02/27/17 documented as of this encounter
--- OUTSIDE RECORDS SUMMARY | 2023-12-30 18:42 | XMS_ITS | Encounter Summary ---
Author Organization [facility] [place] [address] Care Team Providers Care Vascular Technologist Sonographer Name Role Phone Crystal Howell APRN Primary Care Provider [phone] [phone] Encounter Details Date Type Department Care Team (Late st Contact Info) Description 10/18/2017 [place] [address] Shari Brandon Social History Tobacco Use Types [...] * Telephone Encounter - Merary Sim - 10/24/2017 11:59 AM EDT Pt and imaging scheduled, appt card in the mail * Telephone Encounter - Shari Brandon - 10/23/2017 3:50 PM EDT Called pt to schedule 6m f/u, s/p Meningioma MRI brain wwo = LM * Telephone Encounter - Shari Brandon - 10/23/2017 8:50 AM EDT RN: Please place order for MRI wwo Thanks! Karol * Telephone Encounter - Shari Brandon - 10/18/2017 8:06 AM EDT Patient needs f/u appointment(s): With JPA on/around 04/18/18 6m f/u, s/p Meningioma MRI brain wwo Mani Sung MD ?? Sent: [place] October 17, 2017 ??6:10 PM ? To: Nina Grayson Neurosurgery [place] Laborer ? Message ? F/u 6 months with MRI brain +/- contrast * Telephone Encounter - Shari Brandon - 10/18/2017 8:06 AM EDT ----- Message from Mani Sung MD sent at 10/17/2017 6:10 PM EDT ----- F/u 6 months with MRI brain +/- contrast documented in this encounter Plan of Treatment Not on file documented as of this encounter Visit Diagnoses Not on filedocumented in this encounter Care Teams Vascular Technologist Sonographer Relationship Specialty Start Date End Date Crystal Howell APRN [address] [place] [address] PCP - General Family Medicine 02/27/17 documented as of this encounter
--- OUTSIDE RECORDS SUMMARY | 2023-12-30 18:42 | XMS_ITS | Encounter Summary ---
Author Organization [facility] [place] [address] Care Team Providers Care Engineer Second Assistant Name Role Phone Crystal Howell APRN Primary Care Provider [phone] Reason for Referral * Diagnostic Test (Routine) - Closed Specialty Diagnoses / Procedures Referred By Contac t Referred To Contact Radiology Diagnoses Meningioma Procedures MRI Brain wwo Contrast (Generic) [facility] [address] [place] [phone] [place] [address] Referral ID Status Reason Start Date Expiration Date V isits Requested Visits Authorized [id number] Closed Specialty Service Requested 08/13/2017 08/13/2018 1 1 Reason for Visit * Diagnostic Test (Routine) - Closed Specialty Diagnoses / Procedures Referred By Contac t Referred To Contact Radiology Diagnoses Meningioma Procedures MRI Brain wwo Contrast (Generic) [facility] [address] [place] [phone] [place] [address] Referral ID Status Reason Start Date Expiration Date V isits Requested Visits Authorized [id number] Closed Specialty Service Requested 08/13/2017 08/13/2018 1 1 Encounter Details Date Type Department Care Team (Latest Contact Info) Description 10/15/2017 9:04 AM EDT - 10/15/2017 11:59 PM EDT Hospital [place] [address] Mani Sung MD [facility] [place] [address] Meningioma Discharge Disposition: Home Social History Tobacco [...] as of this encounter Progress Notes * Ganesh Whipple RN - 10/10/2017 9:14 AM EDT MRI PRE-SEDATION ASSESSMENT NOTE NAME: Em Dickerson AGE: 67 y.o. : 1950 [address] [facility] [address] Female [phone] (home) Telephone Information: Crystal Howell APRN No primary care provider on file. Allergies Allergen Reactions ??? Iodine And Iodide Containing Products Anaphylaxis ??? Penicillins Hives ??? Nitrofurantoin Other (See Comments) Stomach upset Date/Time of call: October 10, 2017/9:14 AM/ PREVIOUS MRI SCAN? Yes HEIGHT: WEIGHT: SCHEDULED SCAN: MRI BRAIN WWO CONTRAST [[id number]] (Head first, 60 minutes) SUBJECTIVE: The last one with the medicine was better. Pt would like a cloth over eyes in scanner. CAN YOU LAY FLAT? yes AIRWAY ISSUES? no DO YOU HAVE ANY INVOLUNTARY MOVEMENTS? No DO YOU HAVE ANY PAIN? No DO YOU TAKE PAIN MED ON A DAILY BASIS? No ASSESSMENT: Appropriate for PO sedation PLAN: Valium 5-10 MG PO. Pt would like a cloth over eyes in scanner. ( [facility] ) You must have a electric train driver present when you check in. This patient has been informed that they require a electric train driver to drive them home after this procedure. In the absence of a electric train driver, IR will not be able to sedate for your scan. Pt verbalized understanding of these instructions during the pre-procedure education via phone. Yes Name of electric train driver: Willam Phone number PRIOR SCAN DATE/S SEDATION TYPE SUCCESSFUL 07/11/2017 MRI Brain W/WO Valium 5 MG PO Yes 10/15/2017 MRI Brain WWO Valium 5 MG PO ??Yes ? Revised documented in this encounter Plan of Treatment Not on file documented as of this encounter Procedures Procedure Name Priority Date/Time Associated Diagnosis Comments MRI BRAIN WWO CONTRAST (GENERIC) Routine 10/15/2017 11:19 AM EDT Meningioma documented in this encounter Results * MRI Brain wwo Contrast (Generic) (10/15/2017 11:19 AM EDT) Anatomical Region Laterality Modality Head Magnetic Resonan ce Impressions 10/15/2017 1:26 PM EDT Postoperative changes of left pterional craniotomy. Similar pattern of brain parenchymal changes left anterior temporal lobe and T2 hyperintensities in the supratentorial white matter. Stable appearance of nodular enhancement along the dura of the anterior middle cranial fossa on the left. Narrative 10/15/2017 1:26 PM EDT EXAMINATION: MRI BRAIN WWO CONTRAST (GENERIC) CLINICAL HISTORY: f/u s/p left pterional craniotomy for Meningioma resection TECHNIQUE: Brain MRI without with gadolinium. 14 cc dotarem COMPARISON: 07/11/2017 03/12/2017 FINDINGS: No restricted diffusion to suggest an acute infarct. There are postoperative changes of left-sided pterional craniotomy. There is T2 hyperintensity projecting the anterior temporal lobe on the left, similar to prior examination. No new T2 abnormalities are seen. There is similar pattern of patchy areas of T2 hyperintensity in the periventricular white matter and subcortical regions bilaterally. No associated abnormal enhancement in the brain parenchyma. . There is similar pattern of extra-axial enhancement along the dural surface of the anterior margin of the left middle cranial fossa with ??nodular appearance. No new mass or abnormal enhancement seen.. Procedure Note Elvin Calderon MD - 10/15/2017 EXAMINATION: MRI BRAIN WWO CONTRAST (GENERIC) CLINICAL HISTORY: f/u s/p left pterional craniotomy for Meningiomaresection TECHNIQUE: Brain MRI without with gadolinium. 14 cc dotarem COMPARISON: 07/11/2017 03/12/2017 FINDINGS: No restricted diffusion to suggest an acute infarct. There are postoperative changes of left-sided pterional craniotomy. Thereis T2 hyperintensity projecting the anterior temporal lobe on the left, similarto prior examination. No new T2 abnormalities are seen. There is similarpattern of patchy areas of T2 hyperintensity in the periventricular white matterand subcortical regions bilaterally. No associated abnormal enhancement in thebrain parenchyma. . There is similar pattern of extra-axial enhancement along the duralsurface of the anterior margin of the left middle cranial fossa with nodularappearance. No new mass or abnormal enhancement seen.. IMPRESSION Postoperative changes of left pterional craniotomy. Similar pattern of brain parenchymal changes left anterior temporal lobeand T2 hyperintensities in the supratentorial white matter. Stable appearance of nodular enhancement along the dura of the anteriormiddle cranial fossa on the left. 1:26 PM Mani Sung MD IMG MRI ORDERABLES documented in this encounter Visit Diagnoses Diagnosis Meningioma Benign neoplasm of cerebral meninges documented in this encounter Care Teams Engineer Second Assistant Relationship Specialty Start Date End Date Crystal Howell APRN [address] [place] [address] PCP - General Family Medicine 02/27/17 documented as of this encounter
--- OUTSIDE RECORDS SUMMARY | 2023-12-30 18:42 | XMS_ITS | Encounter Summary ---
[place] [address] Care Team Providers Care Bioinformatics Programmer Name Role Phone Crystal Howell APRN Primary Care Provider [phone] Encounter Details Date Type Department Care Team (Late st Contact Info) Description 04/24/2017 Orders [place] [address] Riya Call Social History Tobacco Use Types Packs/Day Years [...] on filedocumented in this encounter Care Teams Bioinformatics Programmer Relationship Specialty Start Date End Date Crystal Howell APRN [address] [place] [address] PCP - General Family Medicine 02/27/17 documented as of this encounter
--- OUTSIDE RECORDS SUMMARY | 2023-12-30 18:42 | XMS_ITS | Encounter Summary ---
Author Organization [facility] Address [facility] [place] [address] Care Team Providers Care Rinkman Name Role Phone Crystal Howell APRN Primary Care Provider [phone] Reason for Visit * Auth/Cert Specialty Diagnoses [...] Expiration Date Visits Re quested Visits Authorized [id number] 1 1 Encounter Details Date Type Department Care Team (Late st Contact Info) Description 03/11/2017 11:58 AM EST - 03/11/2017 4:26 PM EST [facility] [place] [id number] Mani Sung MD [facility] [place] [address] @CRANI, FOR TUMOR, SUPRATENTORIAL, MENINGIOMA (WRVU 37.14) Social History Tobacco Use Types Packs/Day Years [...] Sign Reading Time Taken Comments Blood Pressure 147/80 03/11/2017 10:41 AM EST Pulse 69 03/11/2017 10:41 AM EST Temperature 36.6 ??C (97.9 ??F) 03/11/2017 10:[address] Respiratory Rate 14 03/11/2017 10:41 AM EST Oxygen Saturation 99% 03/11/2017 10:41 AM EST Inhaled Oxygen Concentration - - Weight 70.3 kg (155 lb) 03/11/2017 10:41 AM EST Height 168.9 cm (5' 6.5) 03/11/2017 10:41 AM ES T Body Mass Index 24.64 03/11/2017 10:41 AM EST documented in this encounter Discharge Summaries * Antonino Reyes PA - 03/13/2017 11:01 AM EST Inpatient - Discharge Summary Patient Name: Linda Dickerson Patient Age: 66 y.o. Birthdate: 1950 Admit date: 03/11/2017 Discharge date and time: 03/13/2017 Attending Physician: Mani Sung MD Discharge Diagnoses (Hospital Problems) and Secondary Diagnoses (Chronic Problems): Active Hospital Problems Diagnosis ??? Meningioma Resolved Hospital Problems Diagnosis Date Resolved No resolved problems to display. Active Non-Hospital Problems Diagnosis ??? Melanoma in situ ??? Hypothyroidism ??? Stenosis of lateral recess of lumbar spine ??? Claudication leg paresthesias Operations/Major Procedures: Operations: Procedure(s) with comments: @CRANI, FOR TUMOR, SUPRATENTORIAL, MENINGIOMA (WRVU 37.14) - SAME DAY - RESIDENT TO UPDATE H&P DAY OF CT W/FIDS PRE-OP - ____ ARRIVAL FOR ___ SCAN NEED - TEMPLE CLAMP, PENTERO, SUMEX DRILL STEALTH FROZEN SECTION: YES CASE LENGTH PER STEREOTACTIC COMPUTER-ASSTD NAVIGATIONAL CRANIAL INTRADURAL (WRVU 3.75) - Requesting new Zeiss microscope Knevo MODIFIER STEALTH MICROSCOPE USE (WRVU 3.46) History of Presentation: 66 yo woman with an incidentally found large left sphenoid wing mass arising from the skull base with extensive left temporal brain edema. Given size of tumor and presence of temporal lobe edema surgical resection was recommended. We discussed options for intervention including observation and she elected to move forward with surgery. Hospital Course: Linda Dickerson underwent the aforementioned procedure on 03/11/2017. She tolerated the procedure well and there were no intraoperative complications. Postoperative MRI was satisfactory. She remained hemodynamically and neurologically stable throughout her hospitalization. At the time of discharge she was afebrile, ambulatory, voiding spontaneously, tolerating a regular diet, and managing pain with PO pain medications. She is discharged home in stable condition. Important Studies and Lab Data: Lab Results Component Value Date/Time WBC 15.1 (H) 03/13/2017 05:38 AM HGB 11.5 (L) 03/13/2017 05:38 AM HCT 32.9 (L) 03/13/2017 05:38 AM PLATELET 222 03/13/2017 05:38 AM NA 139 03/13/2017 05:38 AM K 4.3 03/13/2017 05:38 AM CL 103 03/13/2017 05:38 AM CO2 26 03/13/2017 05:38 AM BUN 9 03/13/2017 05:38 AM CREATININE 0.59 (L) 03/13/2017 05:[address] Head Wo Contrast (generic) Result Date: 03/11/2017 EXAMINATION: CT HEAD WO CONTRAST (GENERIC) CLINICAL HISTORY: MENINGIOMA TECHNIQUE: Helically acquired CT sections through the head were obtained without intravenous contrast. COMPARISON: MR of the brain 02/16/2017 FINDINGS: CT head performed with fiducials for Stealth guidance. Noncontrast examination. There is a mass in the left anterior cranial fossa with intermediate attenuation similar to that of adjacent mace matter parenchyma. There is adjacent vasogenic edema in the left temporal lobe extending into the left posterior temporal lobe and the white matter tracts of the left basal ganglia similar to MRI of 02/16/2017. There is local mass effect. There is a mild shift of the temporal uncus. Similar appearance of a left anterior middle cranial fossa mass with adjacent vasogenic edema. I have personally reviewed the image(s) and the residents interpretation and agree with the findings, Elvin Snow MD at 03/11/2017 4:18 PM Mri Brain Wwo Contrast (generic) Result Date: 03/12/2017 EXAMINATION: MRI BRAIN WWO CONTRAST (GENERIC) CLINICAL HISTORY: s/p tumor resection, assess for residual TECHNIQUE: MRI of the brain before and after the administration of 7 cc of gadavist for intravenous contrast. COMPARISON: Preop planning CT dated March 11, 2017 and MR brain dated February 16, 2017. FINDINGS: Interval left frontal craniotomy with resection of the left greater wing sphenoid meningioma. Small amount of T1 hyperintense blood products about the anterior horn of the left temporal lobe. Persistent dural enhancement in this region is noted. Small amount of extra-axial fluid and air overlie the left frontal lobe. There is additional subdural blood along the falx measuring severa l millimeters in thickness. The T2 signal alteration within the left temporal and parietal lobes isunchanged. Ventricles are stable in size.. Stable patchy bilateral subcortical and periventricular T2 signal alteration on the FLAIR sequence which are nonspecific and likely represent small vessel ischemic change. The central intracranial flow voids are normal in course and caliber. The orbits arenormal. Right greater than left maxillary mucosal thickening. Remaining paranasal sinuses, mastoid air cells, and middle ear spaces are clear. 1. Interval gross total resection of the left greater wing sphenoid meningioma, with expected postoperative change at the site of the resection. 2. Small amount of subdural blood along the falx without significant mass effect. I have personally reviewed the image(s) and the residents interpretationand agree with the findings, ANTONINO DIAZ at 03/12/2017 5:30 PM Pending Studies and Lab Data: Final pathology Discharge Conditions/Prognosis: Stable Discharge to: Home Discharge Medications: Your Medications New Medications Dose Details acetaminophen 500 mg Tab Commonly known as: TYLENOL Take 2 tablets by mouth every 6 hours as needed for Pain. 1000 mg Refills: 0 dexamethasone 1 mg Tab Commonly known as: DECADRON 4 tablets twice daily x3 days, 2 tablets twice daily x3 days, 1 tablet twice daily x3 days, 1 tablet daily x3 days, discontinue Quantity: 45 tablet Refills: 0 famotidine 20 mg Tab Commonly known as: PEPCID Take 1 tablet by mouth 2 times daily. Take while on decadron 20 mg Quantity: 30 tablet Refills: 12 levETIRAcetam 500 mg Tab Commonly known as: KEPPRA Take 1 tablet by mouth 2 times daily. 500 mg Quantity: 60 tablet Refills: 3 Continued medications, unchanged Dose Details HERBAL DRUGS ORAL Take 2 tablets by mouth nightly as needed. MID NITE SLEEP AID 2 tablet Refills: 0 Updated Allergies/ADRs: Allergies Allergen Reactions ??? Iodine And Iodide Containing Products Anaphylaxis ??? Penicillins Hives ??? Nitrofurantoin Other (See Comments) Stomach upset Instructions Given to Patient at Discharge: Patient Instructions CRANIOTOMY FOR BRAIN TUMOR DISCHARGE INSTRUCTIONS PRESCRIPTION INSTRUCTIONS: Please see the medication reconciliation list on this discharge summary for a current list of your medications. Stop the use of blood thinning medications until instructed otherwise by your surgical team. This includes medications known as antiplatelet, anticoagulant, and non-steroidal anti-inflammatory (NSAIDs) drugs. Common qhhg-awj-eieubkx medications which should be avoided include Aspirin, ibuprofen, and naproxen among others. These medications are sometimes combined with other drugs or are sold undera trade name. Common prescription medications which should be avoided include Plavix (clopidogrel) and Coumadin (warfarin) among others. The following medications are commonly prescribed after surgery. An [X] indicates that these medications have been prescribed for you. [x ] Antiepileptics - seizure prophylaxis: medications such as Keppra (levetiracetam) and Dilantin (phenytoin) among others Antiepileptics are commonly prescribed after surgery to prevent seizures. Take the medication as directed. At your follow-up appointment with Neurosurgery, ask how long you need to continue taking this medication. If you have difficulty affording this medication please contact us for prescription assistance. [x ] Steroids - anti-inflammatory: medications such as Decadron (dexamethasone) and prednisone among other Steroids are commonly prescribed after surgery to reduce swelling in the brain. This medication is often gradually reduced until discontinued or to a lower level to be assessed again at follow up. Ifyou experience any symptoms during the tapering schedule, please call the Neurosurgery office. [x ] PPIs or H2 blockers - Gastrointestinal prophylaxis: medications such as Nexium (esomeprazole) and Pepcid (famotidine) PPIs or H2 blockers are commonly prescribed after surgery to protect your stomach while you are taking steroids. Once you have finished taking the steroids you may stop this medication. [ ] Opioids - Pain relief: medications such as Roxicodone (oxycodone) or Dilaudid (hydromorphone) Opioids are commonly prescribed after surgery for severe pain. DO NOT use alcohol, drive, or operate heavy machinery while taking these medications. These medications may cause constipation. Stool softeners - Constipation relief: medications such as docusate or senakot Stool softeners are commonly used after surgery to help make stools easier to pass. These medications can be obtained dudu-kjz-wonqabl and their use is recommended on an as needed basis for hard or difficult stools. They should be discontinued for loose stools and diarrhea. WHEN TO SEEK MEDICAL CARE: - Signs or symptoms of an infection - Fever over 101F - Redness, swelling, or increasing pain around your incision - Drainage of pus, blood, or clear fluid from your incision - New neurologic symptoms - Worsening headaches not controlled with your pain medication - Drowsiness, confusion, and lethargy - Visual changes - Difficulty speaking or slurred speech - Facial droop - New weakness or sensory changes - New unsteadiness when walking - Seizures - Constipation not relieved by diet and over the counter stool softeners and laxatives - Nausea/vomiting (upset stomach) not controlled with your anti-nausea medication - Symptoms of a deep venous thrombosis (DVT) or pulmonary embolism (PE): -swelling/warmth/redness of the leg -pain in the leg, which can be worse with standing or walking -chest pain or shortness of breath To help prevent a DVT: -Exercise regularly. Walking, at least several times daily, is helpful. -Ankle pump exercises (like pressing and releasing the gas pedal) should be done regularly. -Keep hydrated with water or other clear liquids (coffee/tea/cola can dehydrate you). -Avoid alcohol and crossing your legs. -Remember not to sit or lay in bed, while awake, for prolonged amounts of time. WOUND CARE: - Keep incisional site clean and dry. You can remove your dressing 2 days after surgery. - You may shower and shampoo incisional site, per your usual routine, 4 days after surgery. - Absorbable sutures will dissolve on their own and do not need to be removed. DIET: - You may resume your usual diet. - A well-balanced diet is recommended for wound healing. - Prune juice or prunes can be added to your diet to assist with any constipation. ACTIVITY: - You may increase your activities as tolerated. - Restrict strenuous activity (such as running, jumping, jogging, shoveling, etc.) until cleared byyour surgical team DRIVING: - [] You may return to driving 2 weeks after surgery. - [x] Do NOT drive until cleared by Neurosurgery. - [] You have had a seizure and driving is prohibited. (see State regulations). Speak to your doctor for further recommendations. FOLLOW UP PLAN: [x ] Your sutures are absorbable and do not need to be removed. [x ] Please follow up in the Neurosurgery Clinic in 4-6 weeks. Please call the Neurosurgery Office at [phone] if you do not receive a scheduled appointment. General Instructions None Discharge References/Attachments: Discharge References/Attachments None Electronically Signed By: DEE ARREDONDO 03/13/2017 documented in this encounter Discharge Instructions * Patient Instructions* Antonino Reyes PA - 03/13/2017 11:10 AM EST CRANIOTOMY FOR BRAIN TUMOR DISCHARGE INSTRUCTIONS PRESCRIPTION INSTRUCTIONS: Please see the medication reconciliation list on this discharge summary for a current list of your medications. Stop the use of blood thinning medications until instructed otherwise by your surgical team. This includes medications known as antiplatelet, anticoagulant, and non-steroidal anti-inflammatory (NSAIDs) drugs. Common ztna-pqn-isflbpd medications which should be avoided include Aspirin, ibuprofen, and naproxen among others. These medications are sometimes combined with other drugs or are sold undera trade name. Common prescription medications which should be avoided include Plavix (clopidogrel) and Coumadin (warfarin) among others. The following medications are commonly prescribed after surgery. An [X] indicates that these medications have been prescribed for you. [x ] Antiepileptics - seizure prophylaxis: medications such as Keppra (levetiracetam) and Dilantin (phenytoin) among others Antiepileptics are commonly prescribed after surgery to prevent seizures. Take the medication as directed. At your follow-up appointment with Neurosurgery, ask how long you need to continue taking this medication. If you have difficulty affording this medication please contact us for prescription assistance. [x ] Steroids - anti-inflammatory: medications such as Decadron (dexamethasone) and prednisone among other Steroids are commonly prescribed after surgery to reduce swelling in the brain. This medication is often gradually reduced until discontinued or to a lower level to be assessed again at follow up. Ifyou experience any symptoms during the tapering schedule, please call the Neurosurgery office. [x ] PPIs or H2 blockers - Gastrointestinal prophylaxis: medications such as Nexium (esomeprazole) and Pepcid (famotidine) PPIs or H2 blockers are commonly prescribed after surgery to protect your stomach while you are taking steroids. Once you have finished taking the steroids you may stop this medication. [ ] Opioids - Pain relief: medications such as Roxicodone (oxycodone) or Dilaudid (hydromorphone) Opioids are commonly prescribed after surgery for severe pain. DO NOT use alcohol, drive, or operate heavy machinery while taking these medications. These medications may cause constipation. Stool softeners - Constipation relief: medications such as docusate or senakot Stool softeners are commonly used after surgery to help make stools easier to pass. These medications can be obtained rral-cbb-vwwiorh and their use is recommended on an as needed basis for hard or difficult stools. They should be discontinued for loose stools and diarrhea. WHEN TO SEEK MEDICAL CARE: - Signs or symptoms of an infection - Fever over 101F - Redness, swelling, or increasing pain around your incision - Drainage of pus, blood, or clear fluid from your incision - New neurologic symptoms - Worsening headaches not controlled with your pain medication - Drowsiness, confusion, and lethargy - Visual changes - Difficulty speaking or slurred speech - Facial droop - New weakness or sensory changes - New unsteadiness when walking - Seizures - Constipation not relieved by diet and over the counter stool softeners and laxatives - Nausea/vomiting (upset stomach) not controlled with your anti-nausea medication - Symptoms of a deep venous thrombosis (DVT) or pulmonary embolism (PE): -swelling/warmth/redness of the leg -pain in the leg, which can be worse with standing or walking -chest pain or shortness of breath To help prevent a DVT: -Exercise regularly. Walking, at least several times daily, is helpful. -Ankle pump exercises (like pressing and releasing the gas pedal) should be done regularly. -Keep hydrated with water or other clear liquids (coffee/tea/cola can dehydrate you). -Avoid alcohol and crossing your legs. -Remember not to sit or lay in bed, while awake, for prolonged amounts of time. WOUND CARE: - Keep incisional site clean and dry. You can remove your dressing 2 days after surgery. - You may shower and shampoo incisional site, per your usual routine, 4 days after surgery. - Absorbable sutures will dissolve on their own and do not need to be removed. DIET: - You may resume your usual diet. - A well-balanced diet is recommended for wound healing. - Prune juice or prunes can be added to your diet to assist with any constipation. ACTIVITY: - You may increase your activities as tolerated. - Restrict strenuous activity (such as running, jumping, jogging, shoveling, etc.) until cleared byyour surgical team DRIVING: - [] You may return to driving 2 weeks after surgery. - [x] Do NOT drive until cleared by Neurosurgery. - [] You have had a seizure and driving is prohibited. (see State regulations). Speak to your doctor for further recommendations. FOLLOW UP PLAN: [x ] Your sutures are absorbable and do not need to be removed. [x ] Please follow up in the Neurosurgery Clinic in 4-6 weeks. Please call the Neurosurgery Office at [phone] if you do not receive a scheduled appointment. documented in this encounter Medications at Time of Discharge Medication Sig Dispensed Refills Start Date End Date HERBAL DRUGS ORAL Take 2 tablets by mouth nightly as needed. Actually take CBD Oil 09/17/2023 documented as of this encounter Progress Notes * April Ignacio RN - 03/13/2017 12:53 PM EST VS stable, pt very pleasant, alert and oriented x4, pt reports pain is well controlled with just tylenol dosing this shift. Pt has been up and ambulating around room and unit, tolerating activity well, good PO intake. Pt medically ready for discharge to home. AVS reviewed with patient and her , Rob. Discussed new medications, decadron taper, activity and driving restrictions, follow-up care, wound care. Pt left facility, ambulatory, accompanied by . * Bryanna Ashish Mayur - 03/13/2017 10:24 AM EST Nutrition Services - Initial Note Linda Dickerson : 1950 AGE: 66 y.o. Patient Active Problem List Diagnosis Date Noted ??? Melanoma in situ 02/21/2017 ??? Hypothyroidism 02/21/2017 ??? Hospital-Meningioma 02/21/2017 ??? Stenosis of lateral recess of lumbar spine 09/21/2011 ??? Claudication leg paresthesias 09/21/2011 Reason for Nutrition Intervention: Patient Eating in ICU Diet Order: Regular Appetite: Good-per pt Food allergies: NKFA Chewing/Swallowing difficulty: Tolerating current diet order. Ht Readings from Last 3 Encounters: 03/11/17 168.9 cm (5' 6.5) 02/21/17 170.2 cm (5' 7) 09/21/11 170.2 cm (5' 7) Wt Readings from Last 3 Encounters: 03/11/17 70.3 kg (155 lb) 02/21/17 72.6 kg (160 lb) 09/21/11 70.3 kg (155 lb) Body mass index is 24.64 kg/(m^2). Assessment: Patient seen for admission into ICU, currently on 5w. Pt was visiting with visitor at time of my arrival. Pt reported a good appetite without difficulty chewing or swallowing, pt stated that she is taking small bites and is adding moisture to her foods to help soften her meals. Nursing documentation notes 100% PO intake. She is tolerating current her diet without nausea or vomiting. Last BM was prior to admission per patient. Bowel med's noted. Patient had no further questions at this time. Provided contact information. Encouraged patient to contact Food and Nutrition services with any questions that may arise. Nutrition Plan: Continue current diet. Recommend Daily Multi Vitamins. Monitor weight. Encourage good po intake. Support and encouragement provided. Nutrition services to follow weekly thru hospital course unless consulted in the interim. Ashish Gould DT * Nikole Chamorro APRN - 03/13/2017 4:11 AM EST Neurosurgery - Inpatient Progress Note ID: POD#[id number] Linda Dickerson, 66 y.o. female s/p pterional craniotomy for resection of LEFT sphenoid wing meningioma. Interval Hx: -CURT -Neurologically stable -Post-op MRI with gross total resection of LEFT sphenoid wing meningioma, small amount of subdural blood along falx Objective: Medications: Scheduled Meds: ??? senna-docusate 2 tablet Oral BID ??? levETIRAcetam 500 mg Oral BID ??? famotidine 20 mg Oral BID Or ??? famotidine 20 mg Intravenous BID ??? dexamethasone 4 mg Intravenous Q6H MARISEL Or ??? dexamethasone 4 mg Oral Q6H MARISEL Continuous Infusions: PRN Meds:potassium chloride OR potassium chloride, gelatin compressed, thrombin (Bovine), BUpivacaine-EPINEPHrine, bacitracin-polymyxin b, bacitracin, bisacodyl, polyethylene glycol, ondansetron OR ondansetron, hydrALAZINE, labetalol, oxyCODONE OR oxyCODONE, acetaminophen OR acetaminophen Vitals: Temp: [36.5 ??C (97.7 ??F)-36.8 ??C (98.2 ??F)] Heart Rate: [82-93] Resp: [15-18] BP: (125-136)/(58-91) SpO2: [94 %-98 %] Heart Rate from SPO2: [81 bpm-82 bpm] I/O: Intake/Output Summary (Last 24 hours) at 03/13/17 0411 Last data filed at 03/12/17 1600 Gross per 24 hour Intake 840 ml Output 475 ml Net 365 ml Labs: Recent Labs 03/12/17 0035 WBC 12.1* HGB 11.4* PLATELET 216 Recent Labs 03/12/17 0035 NA 142 K 3.1* CL 107 CO2 20* BUN 14 CREATININE 0.59* No results for input(s): PT, INR in the last 72 hours. Physical Exam: -NAD -AAOx3 -Speech fluent and appropriate. Naming and repetition intact. -PERRL. EOMI. -No facial asymmetry -Tongue midline -Motor: RUE:09/07 LUE:09/07 RLE: 09/07 LLE: 09/07 -No pronator drift -Sensation intact to LT x 4 -Incision C/D/I Imaging: COMPARISON: Preop planning CT dated March 11, 2017 and MR brain dated February 16, 2017. ?? FINDINGS: MRI Brain wo Contrast 03/12/17: Interval left frontal craniotomy with resection of the left greater wing sphenoid meningioma. Small amount of T1 hyperintense blood products about the anterior horn of the left temporal lobe. Persistent dural enhancement in this region is noted. Small amount of extra-axial fluid and air overlie the left frontal lobe. There is additional subdural blood along the falx measuring several millimeters in thickness. ?? The T2 signal alteration within the left temporal and parietal lobes is unchanged. Ventricles are stable in size.. ?? Stable patchy bilateral subcortical and periventricular T2 signal alteration on the FLAIR sequence which are nonspecific and likely represent small vessel ischemic change. The central intracranial flow voids are normal in course and caliber. The orbits are normal. Right greater than left maxillary mucosal thickening. Remaining paranasal sinuses, mastoid air cells, and middle ear spaces are clear. ?? IMPRESSION 1. Interval gross total resection of the left greater wing sphenoid meningioma, with expected postoperative change at the site of the resection. 2. Small amount of subdural blood along the falx without significant mass effect. Assessment/Plan:: 66 y.o. female s/p pterional craniotomy for resection of LEFT sphenoid wing meningioma. Neurologically stable. - Close neurological observation, q4H checks. - SBP <160 - Hold anticoagulation, SCDs while in bed - Tolerating regular diet, voiding spontaneously, ambulatory without assistance - Discharge planning for discharge home * Faustina Sewell RN - 03/12/2017 12:23 PM EST Linda Dickerson arrived [facility] room 518B @ 0945 from the ICU. Oriented to room, call cancino within reach, educated on importance of using prior to getting OOB, AVSS, , incision WDL, belongings updated in eDH, bed locked in low position, purposeful hourly rounding, bed/chair alarm on. Report from MARIANNA Prieto. * Alonso Shari - 03/12/2017 7:23 AM EST NEUROSURGERY PROGRESS NOTE Linda Dickerson [id number] 1950 ID: 66 y.o. woman s/p pterional craniotomy for resection of sphenoid wing meningioma HD# 1 POD # 1 Day Post-Op INTERVAL HX/ROS: - No acute events - Post-op MRI pending MEDICATIONS: Scheduled Meds: ??? sodium chloride 0.9 % 5 mL Intravenous BID ??? senna-docusate 2 tablet Oral BID ??? levETIRAcetam 500 mg Oral BID Or ??? levETIRAcetam 500 mg Intravenous BID ??? famotidine 20 mg Oral BID Or ??? famotidine 20 mg Intravenous BID ??? vancomycin 1,000 mg Intravenous Q12H ??? dexamethasone 4 mg Intravenous Q6H MARISEL Or ??? dexamethasone 4 mg Oral Q6H MARISEL Continuous Infusions: ??? sodium chloride 0.9% 75 mL/hr (03/11/171914) PRN Meds: potassium chloride OR potassium chloride, gelatin compressed, thrombin (Bovine), BUpivacaine-EPINEPHrine, bacitracin-polymyxin b, bacitracin, sodium chloride 0.9 %, lidocaine, bisacodyl, polyethylene glycol, ondansetron OR ondansetron, hydrALAZINE, labetalol, oxyCODONE OR oxyCODONE, acetaminophen OR acetaminophen EXAM: Body mass index is 24.64 kg/(m^2). Temp: [36.6 ??C (97.9 ??F)-37.1 ??C (98.8 ??F)] Heart Rate: [69-87] Resp: [11-21] BP: (147)/(80) SpO2: [93 %-100 %] Heart Rate from SPO2: [69 bpm-87 bpm] I/O:I/O last 3 completed shifts: In: 2081 [P.O.:100; I.V.:1981] Out: 1365 [Urine:1265; Blood:100] GEN:NAD NEURO:AA+Ox3 Speech fluent and appropriate. Naming and repetition intact. PERRL. EOMI. Visual zhu full to confrontation. No facial asymmetry Tongue midline MOTOR: RUE:5/5 LUE:5/5 RLE: 5/5 LLE: 5 No pronator drift LT sensation intact x 4 Dressings dry and intact LABS: Recent Labs 03/12/17 003 WBC 12.1* HGB 11.4* PLATELET 216 Recent Labs 03/12/17 0035 NA 142 K 3.1* CL 107 CO2 20* BUN 14 CREATININE 0.59* No results for input(s): PT, INR in the last 72 hours. IMAGING: Post-op MRI pending A/P: 66 y.o. woman s/p pterional craniotomy for resection of sphenoid wing meningioma. Neurologically intact post-op. OK for floor. Mobilize, post-op MRI today. 1. Neuro: Close monitoring. Q4 neuro checks. 2. CVS: BP control, keep SBP<160 3. Resp: IS 4. GI: regular diet, PPI 5. Hem: Hold off anticoagulation. SCDs. 6. ID: Cefazolin loreto-op 7. : LARRY smith 8. FEK: IVF until good PO. Monitor lytes. PLEASE PAGE [phone] WITH QUESTIONS NEUROLOGIC: brain compression GI: malnutrition (protein/calorie restriction) cerebral edema post-operative ileus comatose delirium FLUIDS: hyponatremia encephalopathy hypernatremia alcohol withdrawal hyperkalemia seizures hypokalemia hypovolemia CARDIOVASCULAR: atrial fibrillation atrial flutter ENDOCRINE: diabetes mellitus hypertension hyperglycemia hypotension hypothyroid heart failure shock RENAL: acute renal failure venous thrombosis chronic renal failure RESPIRATORY: acute respiratory failure HEMATOLOGY: anemia atelectasis neutropenia pleural effusion thrombocytopenia pneumonia coagulopathy pneumothorax DIC pulmonary embolism INFECTION: bacteremia UTI OTHER: morbid obesity (BMI >40) SIRS underweight (BMI <19) sepsis wound care Active Hospital Problems Diagnosis ??? Meningioma Resolved Hospital Problems Diagnosis Date Resolved No resolved problems to display. Active Non-Hospital Problems Diagnosis ??? Melanoma in situ ??? Hypothyroidism ??? Stenosis of lateral recess of lumbar spine ??? Claudication leg paresthesias NEUROLOGIC: brain compression GI: malnutrition (protein/calorie restriction) x cerebral edema post-operative ileus comatose delirium FLUIDS: hyponatremia encephalopathy hypernatremia alcohol withdrawal hyperkalemia seizures hypokalemia hypovolemia CARDIOVASCULAR: atrial fibrillation atrial flutter ENDOCRINE: diabetes mellitus hypertension hyperglycemia hypotension hypothyroid heart failure shock RENAL: acute renal failure venous thrombosis chronic renal failure RESPIRATORY: acute respiratory failure HEMATOLOGY: anemia atelectasis neutropenia pleural effusion thrombocytopenia pneumonia coagulopathy pneumothorax DIC pulmonary embolism INFECTION: bacteremia UTI OTHER: morbid obesity (BMI >40) SIRS underweight (BMI <19) sepsis wound care documented in this encounter H&P Notes * Bony Han - 03/11/2017 7:32 PM EST Critical Care - Admission Note History of Present Illness: Linda Dickerson is a 66 y.o. female with a history of left cheek melanoma s/p mohs surgery, who initially presented post operatively with pre-syncopal episodes. In part of the initial work up, there wasconcern for possible neck mass related to her melanoma history that could have been causing her symptoms, and a CT head/neck showed an intracranial mass. Follow-up MRI demonstrated a left sphenoid wing dural-based mass consistent with meningioma. She presents to the SICU today post op from a pterional craniotomy with resection of the mass for q1 neuro checks and close observation. Review of Systems: Unable to obtain, patient drowsy and still awakening from anesthesia Past Medical History: No past medical history on file. Past Surgical History: Past Surgical History: Procedure Laterality Date ??? PRO COLONOSCOPY, DIAGNOSTIC N/A 02/14/2015 COLONOSCOPY, DIAGNOSTIC performed by Kirsten Singleton MD at [facility] END[facility]COPY Prior To Admission Medications: Prescriptions Prior to Admission Medication Sig Dispense Refill Last Dose ??? HERBAL DRUGS ORAL Take 2 tablets by mouth nightly as needed. [facility] SLEEP [facility] 03/07/2017 at Unknown time Allergies: Allergies Allergen Reactions ??? Iodine And Iodide Containing Products Anaphylaxis ??? Penicillins Hives ??? Nitrofurantoin Other (See Comments) Stomach upset Family History: No family history on file. Social History and Habits: Social History Social History ??? Marital status: Spouse name: N/A ??? Number of children: N/A ??? Years of education: N/A Occupational History ??? Not on file. Social History Main Topics ??? Smoking status: Never Smoker ??? Smokeless tobacco: Never Used ??? Alcohol use Yes Comment: 3 drinks weekly ??? Drug use: No ??? Sexual activity: Not on file Other Topics Concern ??? Not on file Social History Narrative Physical Exam: Last Set of Vitals and range of vitals over past 24 hours: Last value Range last 24 hrs Temperature Temp: 36.6 ??C (97.9 ??F) Temp: [36.6 ??C (97.9 ??F)] Heart Rate Heart Rate: 69 Heart Rate: [69] Blood Pressure BP: 147/80 BP: (147)/(80) Respiratory Rate Resp: 14 Resp: [14] SpO2 SpO2: 99 % SpO2: [99 %] Gen: no acute distress, drowsy, awakening from anesthesia HEENT: Sclera non-icteric, PERRL craniotomy incision clean dry and intact, open to air CV: RRR, no m/r/g RESP: CTAB, no wheezing ABD: Soft, normoactive bowel sounds EXT: WWP, palpable pulses bilaterally Neuro: CN grossly intact, motor/sensation in b/l upper and lower extremities intact Laboratory (Last 24 Hours): No results found for this or any previous visit (from the past 24 hour(s)). Radiology: 03/11 Post-op MRI Head w/wo contrast pending Assessment/Plan: Linda Dickerson is a 66 y.o. female with history of melanoma. S/p craniotomy by Neurosurgery service. Admitted to ICU post-op for q1h neurochecks. Neuro: - q1h neuro checks -pain control with tylenol PRN and oxycodone PRN -Keppra for seizure ppx -decadron 4 mg -post-op imaging ordered. CV: hemodynamically stable, continue to monitor, SBP goal <180, per neurosurgery order -PRN hydralazine and labetalol, nicardipine gtt if not able to be controlled with PRNs Pulm: -wean to RA, ISBx10/hr while awake FEN: -daily BMP, replete as needed -monitor Na GI: -Diet: regular diet -Bowel regimen: schechduled colace, PRN supp & miralax -Nausea: reglan, zofran PRN : Smith in place, continue to monitor UOP Endo: -stable ID: -perioperative abx coverage: Vancomycin Heme: -daily CBC PPx: Pepcid, SCDs, holding anticoagulation Disp: admit to ICU, Critical Care Red 1 Primary service: Neurosurgery Bony Han MD 03/11/2017 Associated attestation - Simon Garcia MD - 03/11/2017 9:42 PM EST I have seen the patient and reviewed the resident's above history and I agree with the details as written. The assessment and plan were formulated in discussion with me and I agree with them as documented. Briefly, 66yoF w h/o L cheek melanoma s/p mohs w recent crani for resection of meningioma discovered on workup for pre-syncopal episodes. Easy mask, grade I view w mac 3. Intraop course unremarkable and extubated at case conclusion. Pt presently c/o L head pain around incision and mild nauseaafter receiving oxycodone. Neuro intact without focal deficits. Plan as above and will add scheduled acetaminophen to supplement PRN oxycodone. If this patient is not critically ill, the reason for continued hospitalization is meningioma s/p resection. SIMON GARCIA MD * Yamil Gibson MD - 03/11/2017 12:04 PM EST 24-HOUR UPDATE Linda Eli Dickerson was seen in SDP. No interval events or changes in health status since preoperative H+P(see EPIC). Denies angina/dyspnea/fevers or malaise within the last 14 days. All questions were answered. Stable for surgery as scheduled. LEFT sided sphenoid wing meningioma Asymptomatic, Neuro intact No changes since last seen Proceed to surgery as planned documented in this encounter Miscellaneous Notes * Plan of Care - Monroe Pham OT - 03/13/2017 12:53 PM EST Problem: Patient Care Overview Goal: Plan of Care Review Outcome: Ongoing (Interventions Implemented as Appropriate) 03/13/17 1742 Coping/Psychosocial Plan Of Care Reviewed With patient;significant other Occupational Therapy Evaluation Pertinent History of Current Problem: Linda Dickerson, 66 y.o. female s/p pterional craniotomy for resection of LEFT sphenoid wing meningioma. Precautions/Restrictions: fall (SBP<160) Living Environment Comment: pt lives in a 2 story home; SO plans to take few weeks off to care for pt as needed. 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 enjoys playing tennis and going to [employer] weekly. Assessment: Pt has been seen by OT for evaluation, please refer to associated flowsheet data for details. Pt demonstrates the ability to perform basic ADL???s and fx mob steadily safely at this time.Pt will have support from SO upon return home. Pt with good strength, functional coordination throughout, no sensory or visual limitations noted, no pain, communicating well; no OT needs identified du ring session today. Anticipate that pt will return home with assistance. Therapy Frequency: evaluation only Anticipated Discharge Disposition: home with assist Pager: [phone] MONROE PHAM OT 03/13/2017 Occupational Therapy Rehabilitation Department 2017 OT Evaluation Code Rationale: ?? Diagnosis & Pertinent Co-Morbidities affecting Plan of Care: see PMHx above ?? Clinical presentation: Stable Evolving Unstable x ?? Occupational Profile & Client History: Brief Expanded Extensive x ?? Assessment of Occupational Performance: 1-3 performance deficits x 3-5 performance deficits 5 + performance deficits Clinical decision making of low complexity using standardized patient assessment instrument and measurable assessment of functional outcome. * Plan of Care - Snehal Condon, PT - 03/13/2017 11:29 AM EST Problem: Patient Care Overview Goal: Plan of Care Review Outcome: Ongoing (Interventions Implemented as Appropriate) 03/13/17 1124 Coping/Psychosocial Plan Of Care Reviewed With patient;significant other Physical Therapy Evaluation Pertinent History of Current Problem: Linda Dickerson, 66 y.o. female s/p pterional craniotomy for resection of LEFT sphenoid wing meningioma. Living Environment Comment: Lives in a two story home with significant other. Independent at baseline; works, drives, stays busy. Assessment: Pt seen for skilled PT Treatment Number: 1 , please refer to associated flowsheet data for details. Patient was a&o x 3, pleasant, and cooperative, no pain. She independently ambulated around the unit, including negotiating a flight of stairs without difficulties. Home safety tips were provided to patient and significant other. No further immediate PT needs identified. Significantother will be home with patient over next few weeks. Interventions: PT evaluation Anticipate that pt will return home with assistance of significant other, if needed. Do not anticipate further inpatient PT needs; will monitor. Precautions Comments: SBP<160 Mobility Guidelines: Independent Discharge Recommendations: Home Pager: [phone] Snehal Condon DPT, NCS 03/13/2017 Physical Therapy Rehabilitation Department * Plan of Care - Denis Stout RN - 03/13/2017 3:00 AM EST Problem: Patient Care Overview Goal: Plan of Care Review Outcome: Ongoing (Interventions Implemented as Appropriate) OUTCOME EVALUATION NOTE: OUTCOME SUMMARY: Patient alert and oriented x4 throughout shift. Vital signs stable and ringing appropriately. Patient Stand by assist in room with present. Pain management has been effective with Tylenol andoxycodone. Incision on head open to air with no signs of infection. Will continue to monitor. PLAN MOVING FORWARD: Pain Control Discharge INDIVIDUALIZED FALL PREVENTION INTERVENTIONS: Patient-specific fall risk factors per assessment: Craniotomy Assistance: SBA Supervision: Eyes on, Arms reach Surveillance: Bed locked in low position, call cancino within reach, purposeful hourly rounding, clutter free environment, bed/chair alarm on, family at bedside Patient-specific fall prevention interventions for sensory deficits provided: Yes CPG GOAL OUTCOME EVALUATION: Continue care plan as documented. Goal: Individualization & Mutuality Outcome: Ongoing (Interventions Implemented as Appropriate) 03/12/17 1800 Mutuality/Individual Preferences What Anxieties, Fears or Concerns Do You Have About Your Health or Care? I get anxious during scans What Questions Do You Have About Your Health or Care? When can I go home? What Information Would Help Us Give You More Personalized Care? Nothing Goal: Fall Prevention-Safe Patient Handling Outcome: Ongoing (Interventions Implemented as Appropriate) 03/12/17 1000 03/12/17199903/13/17 0000 Restraint Interventions Safety Promotion/Fall Prevention -- -- activity supervised;fall prevention program maintained;nonskid shoes/slippers when out of bed;safety round/check completed Positioning Body Position -- -- independent Daily Care Interventions Self-Care Promotion independence encouraged;BADL personal objects within reach;BADL personal routines maintained -- -- Park Fall Risk History of Falling -- 0 -- Secondary Diagnosis -- 15 -- Ambulatory Aids -- 0 -- Intravenous Therapy/Heparin/Saline Lock -- 20 -- Gait/Transferring -- 10 -- Mental Status -- 0 -- Score -- 45 -- OTHER Park Fall Risk -- High -- Goal: Infection Control Outcome: Ongoing (Interventions Implemented as Appropriate) 03/12/17199903/13/17 0000 Safety Interventions Isolation Precautions -- standard precautions maintained Infection Prevention -- environmental surveillance performed;rest/sleep promoted;single patient room provided Coping Strategies Supportive Measures active listening utilized -- Goal: Discharge Needs Assessment Outcome: Ongoing (Interventions Implemented as Appropriate) 03/11/17 1051 03/12/17 1800 Current Health Anticipated Changes Related to Illness none -- Living Environment Transportation Available -- car;family or friend will provide Goal: Interdisciplinary Rounds/Family Conf Outcome: Ongoing (Interventions Implemented as Appropriate) 03/12/17 1605 Interdisciplinary Rounds/Family Conf Participants nursing;patient;physician * Plan of Care - Faustina Sewell RN - 03/12/2017 4:03 PM EST Problem: Patient Care Overview Goal: Plan of Care Review Outcome: Ongoing (Interventions Implemented as Appropriate) 03/12/17 1606 Coping/Psychosocial Plan Of Care Reviewed With patient Plan of Care Review Progress progress toward functional goals as expected OUTCOME EVALUATION NOTE: OUTCOME SUMMARY: Pt A&O x4, PERRLA, strengths are 5/5. Pt ambulated with SBA with slightly unsteady gait. Incision KATIE & WDL. Pt c/o pain around incision site - treated with + effect with PRN Tylenol and PRN oxycodone. Pt had post-op MRI this shift. at bedside for all of shift - pt moved to room 517to accomodate rooming in. Pt refused Potassium draw; was educated on why the level is needed; pt now open to getting blood drawn for Potassium; phlebotomy to come and collect. Pt calm and cooperativewith all care. PLAN MOVING FORWARD: PT/OT Encourage ambulation Continue to monitor and treat pain as needed DC planning INDIVIDUALIZED FALL PREVENTION INTERVENTIONS: Patient-specific fall risk factors per assessment: recent crani, generalized weakness Assistance: SBA Supervision: Eyes on Surveillance: Bed locked in low position, call cancino within reach, purposeful hourly rounding, clutter free environment, family at bedside Patient-specific fall prevention interventions for sensory deficits provided: N/A CPG GOAL OUTCOME EVALUATION: Continue care plan as documented. * Initial Assessments - Anthony Euceda RN - 03/12/2017 3:00 PM EST Office of Care Management Initial Assessment Anthony Euceda RN reviewed record and discussed patient with Care Team. Source of Information: Patient and Significant other Rich Introduced self/reviewed role; services accepted. Reason for Hospitalization: Reason for Admission as Stated by Patient: Meningioma No past medical history on file. Hospitalizations Within the Past 30 Days: none Anticipated Length Of Stay (If known): Expected Length of Hospitalization: 2-3 Current Decision-Making Capacity: Pt is alert and oriented X4 Advance Care Planning: none on file. Current Coping/Education/Information Needs:Pt c/o MRI was rude, Medications not given on time due to incorrect handoff. Pain medication not explained correctly. Pt not given information that she was moving to the 5th floor. Pt and significant other given Patient Relations information so that they may express their concerns. This telegraphic typewriter operator did assure them that their concerns were important to us and that I appreciated them sharing their concerns. Pt also asked for a medical record release for, thiswriter furnished it to pt and significant other. Current Functional Ability: 1 assist Functional Status Prior to Admission: Independent Home Environment: 2 story home, Bed and bath on both floors. Pt lives with partner. Daughter lives next door. She has a Cat Social & Family Supports/Community Resources: Pt has partner and family next door who are very supportive. Behavioral Health History: None Substance Use/Abuse: social drinker 3 drinks weekly. Denies illicit use Other Pertinent/Service Specific Information: none Health/Prescription Coverage: Primary Insurance: [facility] MANAGED MEDICARE Secondary Insurance: N/A Prescription Coverage: as above. Preferred Pharmacy: [facility] Other: n/a Primary Care Provider: Crystal Howell, PUMP HOUSE TECHNICIAN [phone] Patient/Caregiver Goals of Treatment: pt is eager to go home. Potential Needs for Transition of Care: Rehab/SNF: unlikely, but pt would be open if team deems necessary Home Health: [facility] DME: n/a Dialysis: n/a Community Resources: none identified Transportation: Partner Rich will transport Other: n/a Anticipated Barriers to Discharge/Special Considerations: none identified Plan: A member of the Care Management team will continue to monitor progress, follow for continuityof care and assist with transition of care planning. Anthony Euceda RN Pager: [phone] * Plan of Care - Jordan Lopez RN - 03/12/2017 6:56 AM EST Problem: Skin Integrity Impairment, Risk/Actual (Adult) Goal: Identify Related Risk Factors and Signs and Symptoms Related risk factors and signs and symptoms are identified upon initiation of Human Response Clinical Practice Guideline (CPG) Outcome: Ongoing (Interventions Implemented as Appropriate) 03/12/17638 Skin Integrity Impairment, Risk/Actual Skin Integrity Impairment, Risk/Actual: Related Risk Factors fluid/nutrition status Goal: Skin Integrity/Wound Healing Patient will demonstrate the desired outcomes by discharge/transition of care. Outcome: Ongoing (Interventions Implemented as Appropriate) 03/12/17638 Skin Integrity Impairment, Risk/Actual (Adult) Skin Integrity/Wound Healing making progress toward outcome OUTCOME EVALUATION NOTE: OUTCOME SUMMARY: Patient was alert and oriented during shift, able to follow commands, pupils equal and reactive to light and accomodation, very slightly lethargic at times. K+ was replaced, 2g Mg++ given as ordered.Patient received 10 mg of oxy w/ IV zofran at beginning of shift for pain control, later family requested only 5 of oxy, given w/ positive results. Patient on RA sats in the 90s. Follow draining adequately. 1x hydralazine given prn SBP>160 w/ + result. Patient's family was at bedside, seems veryanxious. Education and reassurance provided. PLAN MOVING FORWARD: MRI, Possible transfer to lower level of care INDIVIDUALIZED FALL PREVENTION INTERVENTIONS: Patient-specific fall risk factors per assessment: [current deficits]: IV saline infusing, mild weakness Assistance [level of assistance required for transfers and ambulation]: 1 person assist Supervision [direct monitoring required during toileting and ADLs]: RN and TONO Surveillance [continuous indirect monitoring]: Monitor Patient-specific fall prevention interventions for sensory deficits provided, if applicable: [X] Yes CPG GOAL OUTCOME EVALUATION: Problem: Patient Care Overview Goal: Plan of Care Review Outcome: Ongoing (Interventions Implemented as Appropriate) 03/12/17638 Coping/Psychosocial Plan Of Care Reviewed With patient;family Plan of Care Review Progress improving Goal: Fall Prevention-Safe Patient Handling Outcome: Ongoing (Interventions Implemented as Appropriate) 03/12/17638 Restraint Interventions Safety Promotion/Fall Prevention activity supervised Positioning Body Position neutral head position;legs elevated;weight shift assistance provided;with 1-person assist Daily Care Interventions Self-Care Promotion independence encouraged Park Fall Risk History of Falling 0 Secondary Diagnosis 15 Ambulatory Aids 0 Intravenous Therapy/Heparin/Saline Lock 20 Gait/Transferring 0 Mental Status 0 Score 35 OTHER Park Fall Risk Med Goal: Infection Control Outcome: Ongoing (Interventions Implemented as Appropriate) 03/12/17638 Safety Interventions Isolation Precautions standard precautions maintained Infection Prevention single patient room provided Coping Strategies Supportive Measures active listening utilized;verbalization of feelings encouraged;positive reinforcement provided Goal: Interdisciplinary Rounds/Family Conf Outcome: Ongoing (Interventions Implemented as Appropriate) 03/12/17638 Interdisciplinary Rounds/Family Conf Participants nursing;patient;physician Problem: Pain, Acute (Adult) Goal: Identify Related Risk Factors and Signs and Symptoms Related risk factors and signs and symptoms are identified upon initiation of Human Response Clinical Practice Guideline (CPG) Outcome: Ongoing (Interventions Implemented as Appropriate) 11/07/17 0639 Pain, Acute Related Risk Factors (Acute Pain) procedure/treatment;surgery Signs and Symptoms (Acute Pain) moaning;nausea/vomiting/anorexia;verbalization of pain descriptors;sleep pattern alteration Goal: Acceptable Pain Control/Comfort Level Patient will demonstrate the desired outcomes by discharge/transition of care. Outcome: Ongoing (Interventions Implemented as Appropriate) 03/12/17 0639 Pain, Acute (Adult) Acceptable Pain Control/Comfort Level making progress toward outcome * Op Note - Mani Sung MD - 03/11/2017 7:31 PM EST [facility] [place] Patient Name: Linda Dickerson : [id number] MR#: [id number] Case Date: 03/11/2017 Surgeon: Surgeon(s) and Role: * Mani Sung MD - Primary * Yamil Gibson MD - Resident-Surgeon Gui Preoperative diagnosis: MENINGIOMA Postoperative diagnosis: MENINGIOMA Procedures: Left frontal temporal craniotomy for resection of sphenoid wing meningioma Use of frameless stereotactic navigation, intracranial intradural Use of the operating microscope Additional procedural services (Modifier 22): The tumor arose from the skull base along the sphenoid wing and resection of the tumor required significant additional work given the complexity of exposing and dissecting the tumor from middle cerebral artery branches and sylvian fissure veins. Anesthesia: General Estimated Blood Loss: 100 mL Specimens removed during surgery: Order Name Source Comment Collection Info Order Time SPECIMEN TO PATHOLOGY (SURGICAL OR DERM) [facility] [phone] YES, Please perform frozen section Meningioma Left Sphenoid Wing Tumor No 03/11/2017 3:22 PM Time removed from patient: 3:21 PM SPECIMEN TO PATHOLOGY (SURGICAL OR DERM) meningioma left sphenoid wing tumor 03/11/2017 4:52 PM Drains: Surgical Closure: Primary Closure - closure of ALL tissue levels during the original surgery regardless of wires, wickes, drains, or other devices extruding through the incision Disposition: extubated in the OR and taken directly to the ICU in a stable, but guarded condition. Condition: doing well without problems (Please see the Surgical Encounter Summary for any Implant and Specimen details pertinent to this patient.) HPI/Surgical Indications: 66 yo woman with an incidentally found large left sphenoid wing mass arising from the skull base with extensive left temporal brain edema. Given size of tumor and presence of temporal lobe edema surgical resection was recommended. We discussed options for intervention including observation and she elected to move forward with surgery. A consent was signed. Procedure Description: The patient was brought to the operating room and transferred from the stretcher to the OR table. She was positioned supine with a gel roll under her left shoulder. Upon induction of general anesthesia, her head was placed in a Temple head sampler and turned to the right, exposing the left frontaltemporal region. We then registered the [employer] stereotactic navigation system. We markedthe location of the tumor in the left sphenoid wing region, and marked a C-shaped pterional incision to create a skin flap leaving a margin around the tumor. Hair in this region was then clipped. Heroperative site was then marked off with thousand drapes. We then prepped and draped in the usual sterile fashion. We performed a [facility] mandated hard stop timeout confirming the patient's name, medical record number, laterality of our intended procedure. She received preoperative antibiotics. We began by incising the skin with a #10 blade, and used Metzenbaum scissors to establish a plane over thetemporalis fascia. We then used monopolar cautery to incise the temporalis fascia and muscle. Raneyclips were placed on the skin edges. A myocutaneous flap was then dissected along the surface of the bone and held reflected forward using self- retaining cerebellar retractors. We confirmed the location of the tumor using the [employer] Stealth navigation system. Bur holes were then placed using a stereotyper apprentice bit attached to the [employer] drill posteriorly beyond the most lateral extent of the tumor, just above the root of zygoma, and frontally along the superior temporal line. We then removed any bony remnants using a curette. We then use a Milan 3 instrument to strip the dura from the underside of the bone. We then used a B1 bit with a footplate to turn a craniotomy flap. The bone flap was then elevated and removed from the field. We then opened the dura along the posterior and superior edge of the craniotomy. We then brought in the operating microscope. We then identified the tumor adherent to the lateral dura and arising along the sphenoid wing. We dissected along the tumor frontally and temporally. The plane between tumor and brain was adherent, but the tumor was very friable and aspirated using suction. The dissection around the tumor and along the sphenoid wing skull base required considerable additional effort and time beyond the usual in such cases given proximity and adherence to MCA and sylvianvein branches. We continued dissection with period central debulking, placing cotton patties in the plane between brain and tumor. A sample of tumor was sent for frozen pathology and returned meningioma. We cauterized tumor vessels using bipolar cautery and continued dissection until we reached the depth along the wing temporally and frontally. The dura along the sphenoid wing was thickened and there was additional densely adherent fibrous tumor. This was removed using a pituitary instrument as well as curets. Once we were satisfied that no gross tumor remained we cauterized the dura along the anterior fossa floor, along the wing, and down towards the middle fossa floor. We also resected the lateral dura and sent to this to pathology as well. We then turned our attention to obtaining meticulous hemostasis. The cavity was lined with Surgicel. We then used a suturable dural replacement and sutured this in place using 4-0 Nurolon sutures. The cavity was then filled with irrigation. A large piece of Surgicel and then Eviseal was placed overthe dura. The bone flap was then secured in place using titanium plates and screws from the plating kit. All hardware is MRI compatible. We then irrigated copiously with bacitracin irrigation. The temporalis muscle and then fascia were reapproximated using 2-0 vicryl sutures and the galea was then closed using 3-0 Vicryl sutures in an inverted interrupted fashion. Skin was then closed using a running Vicryl Rapide suture covered with Dermabond skin glue. The patient was then removed from the [place] head sampler. She was allowed to awaken from anesthesia and was extubated. She was found to befollowing commands in all extremities with good strength. She was then taken directly to the ICU for further recovery. Infection Bundle used? See Brief Op note Attestation: Case Date: 03/11/2017 I was present and I participated during the entire procedure (does not need to include opening and closing). Mani Sung MD 03/11/2017 * Brief Op Note - Yamil Gibson MD - 03/11/2017 5:35 PM EST Brief Operative Note Patient Name: Linda Dickerson : [id number] MR#: [id number] Case Date: 03/11/2017 Surgeon: Surgeon(s) and Role: * Mani Sung MD - Primary * Yamil Gibson MD - Resident-Surgeon Gui Preoperative diagnosis: MENINGIOMA Postoperative diagnosis: MENINGIOMA Procedure(s): @CRANI, FOR TUMOR, SUPRATENTORIAL, MENINGIOMA (WRVU 37.14) STEREOTACTIC COMPUTER-ASSTD NAVIGATIONAL CRANIAL INTRADURAL (WRVU 3.75) MODIFIER STEALTH MICROSCOPE USE (WRVU 3.46) Anesthesia: General Findings: Soft, abnormal mass along sphenoid wing Complications: None Estimated Blood Loss: 100 mL Specimens removed during surgery: Order Name Source Comment Collection Info Order Time SPECIMEN TO PATHOLOGY (SURGICAL OR DERM) [facility] [phone] YES, Please perform frozen section Meningioma Left Sphenoid Wing Tumor No 03/11/2017 3:22 PM Time removed from patient: 3:21 PM SPECIMEN TO PATHOLOGY (SURGICAL OR DERM) meningioma left sphenoid wing tumor 03/11/2017 4:52 PM Fluids: 1L Fluids: ANES IntraOp Crystalloid (Filter: (AN Fluids) Medications Shown) Medication Calculated Total No medications were administered. Blood: none Urine Output: 355 mL Drains: None Disposition: awakened from anesthesia, extubated and taken to the recovery room in a stable condition, having suffered no apparent untoward event. Condition: doing well without problems (Please see the Surgical Encounter Summary for any Implant and Specimen details pertinent to this patient.) Infection Bundle used? Yes, Neurosurgery ANES IntraOp Crystalloid (Filter: (AN Fluids) Medications Shown) Medication Calculated Total No medications were administered. documented in this encounter Plan of Treatment Not on file documented as of this encounter Procedures Procedure Name Priority Date/Time Associated Diagnosis Comments HOGSHEAD LINER SCAN 03/14/2017 12:00 AM EST HEMOGRAM Routine 03/13/2017 5:38 AM EST DIFFERENTIAL, AUTOMATED Routine 03/13/2017 5:38 AM EST CBC (WITH DIFF) Routine 03/13/2017 5:38 AM EST BASIC METABOLIC PANEL Routine 03/13/2017 5:38 AM EST MRI BRAIN WWO CONTRAST (GENERIC) Routine 03/12/2017 1:17 PM EST HEMOGRAM Routine 03/12/2017 12:35 AM EST DIFFERENTIAL, AUTOMATED Routine 03/12/2017 12:35 AM EST CBC (WITH DIFF) Routine 03/12/2017 12:35 AM EST PHOSPHORUS Routine 03/12/2017 12:35 AM EST MAGNESIUM Routine 03/12/2017 12:35 AM EST BASIC METABOLIC PANEL Routine 03/12/2017 12:35 AM EST SPECIMEN TO PATHOLOGY Routine 03/11/2017 4:52 PM EST SPECIMEN TO PATHOLOGY STAT 03/11/2017 3:22 PM EST SURGICAL PATHOLOGY REPORT Routine 03/11/2017 3:[address] HEAD WO CONTRAST (GENERIC) Routine 03/11/2017 1:11 PM EST MICROSCOPE USE (WRVU 3.46) Yes 03/11/2017 1:09 PM EST MENINGIOMA MODIFIER STEALTH S7 Yes 03/11/2017 1 :09 PM EST MENINGIOMA STEREOTACTIC COMPUTER-ASSTD NAVIGATIONAL CRANIAL INTRADURAL (WRVU 3.75) Yes 03/11/2017 1:09 PM EST MENINGIOMA @CRANI, FOR TUMOR, SUPRATENTORIAL, MENINGIOMA (WRVU 37.14) Yes 03/11/2017 1:09 PM EST MENINGIOMA IMPLANTABLE DEVICES SCAN 03/11/2017 12:00 AM EST documented in this encounter Results * SCAN DOC: HOGSHEAD LINER (03/14/2017 12:00 AM EST) Anatomical Region Laterality Modality Other Narrative 03/14/2017 12:00 AM EST Ordered by an unspecified provider. Scanning Provider MEDIA MGR SCAN EXT O RDR/RSLT * (ABNORMAL) Differential, Automated (03/13/2017 5:38 AM EST) Neutrophil % 85.8 % [facility] Neutrophil Absolute 12.95(H) 1.70 - 6.10 x10(3)/mc L [facility] Lymph % 5.6 % [facility] Lymphocytes Abs 0.8(L) 0.9 - 3.2 x10(3)/ L [facility] Monocyte % 7.2 % [facility] Monocyte Abs 1.1(H) 0.3 - 0.9 x10(3)/mc L [facility] Eos % 0.0 % [facility] Eosinophils Abs 0.0 0.0 - 0.4 x10(3)/ L [facility] Basophil % 0.1 % [facility] Baso Absolute 0.0 0.0 - 0.1 x10(3)/ L [facility] Immature Gran % 1.30 % [facility] Comment: Immature granulocytes(IG's)percentage and absolute count will include metamyelocytes, myelocytes, and promyelocytes. Blood smears from CBCs yielding IG's will be scanned manually for concordance. If this scan disagrees with the automated IG or if promyelocytes are noted, a manual differential will be performed. Immature Gran Absolute 0.19(H) 0.00 - 0.04 x10(3)/mc L [facility] Blood specimen (specimen) 03/13/2017 5:38 AM EST 03/13/2017 5:54 AM EST Narrative Resulting Agency Comment Spec In Lab Angel Morse APRN HEMATOLOGY ORDERABLE S [facility] [place] [address] * (ABNORMAL) Hemogram (03/13/2017 5:38 AM EST) [facility] White Blood Cell 15.1(H) 4.0 - 9.5 x10(3)/[facility] Red Blood Cell 3.89(L) 4.00 - 5.21 x10(6)/[facility] Hemoglobin 11.5(L) 11.7 - 15.5 gm/dL [facility] Hematocrit 32.9(L) 35.7 - 45.8 % [facility] Mean Cell Volume 84.6 82.6 - 94.4 fL [facility] Mean Cell Hemoglobin 29.6 27.1 - 32.0 pg [facility] Mean Cell Hemoglobin Concentration 35.0 31.7 - 35.0 gm/dL [facility] Platelet 222 145 - 357 x10(3)/[facility] RDW Standard Deviation 39.8 37.0 - 46.0 [facility] RDW coefficient of variation 13.1 11.5 - 14.1 % [facility] Mean Platelet Volume 9.6 7.6 - 12.9 fL [facility] NRBC% auto 0.0 % [facility] NRBC Absolute 0.000 0.000 - 0.000 x10(3)/[facility] Blood specimen (specimen) 03/13/2017 5:38 AM EST 03/13/2017 5:54 AM EST Narrative Resulting Agency Comment Spec In Lab Angel Morse APRN HEMATOLOGY ORDERABLE S [facility] [place] [address] * (ABNORMAL) Basic Metabolic Panel (non-fasting) (03/13/2017 5:38 AM EST) [facility] Glucose 138 65 - 199 mg/dL [facility] Comment:Diabetes: >=200 mg/d L plus symptoms Blood Urea Nitrogen 9 8 - 18 mg/dL [facility] Creatinine 0.59(L) 0.70 - 1.20 mg/dL [facility] Sodium 139 135 - 145 mmol/L [facility] Potassium 4.3 3.5 - 5.0 mmol/L [facility] Comment: result rechecked-pmh Please note: ??Patients with WBC >100,000 may have falsely elevated Potassium levels. ??For accurate Potassium quantification in these patients send serum separator tube (gold top) for subsequent determinations. ??Contact the Clinical Chemistry Laboratory if there are any questions. Chloride 103 98 - 107 mmol/L [facility] Carbon Dioxide 26 22 - 31 mmol/L [facility] Anion Gap 10 5 - 15 mmol/L [facility] Calcium 9.3 8.5 - 10.5 mg/dL [facility] Comment:result rechecked-pmh Est Glomerular Filtration Rate >60 >=60 [facility] Comment: The reported eGFR should be multiplied by 1.2 for patients. The MDRD is not an appropriate measure of renal function for patients with body mass extremes or in patients with acute kidney failure. [email or web address]/DHnkdep [email or web address]://[employer]/DHMCnkf Blood specimen (specimen) 03/13/2017 5:38 AM EST 03/13/2017 5:54 AM EST Narrative Resulting Agency Comment Spec In Lab Angel Morse APRN CHEMISTRY ORDERABLES [facility] [place] [address] * MRI Brain wwo Contrast (Generic) (03/12/2017 1:17 PM EST) Anatomical Region Laterality Modality Head Magnetic Resonan ce Impressions 03/12/2017 5:30 PM EST 1. ??Interval gross total resection of the left greater wing sphenoid meningioma, with expected postoperative change at the site of the resection. 2. ??Small amount of subdural blood along the falx without significant mass effect. I have personally reviewed the image(s) and the residents interpretation and agree with the findings, ANTONINO DIAZ at 03/12/2017 5:30 PM Narrative 03/12/2017 5:30 PM EST EXAMINATION: MRI BRAIN WWO CONTRAST (GENERIC) CLINICAL HISTORY: s/p tumor resection, assess for residual TECHNIQUE: MRI of the brain before and after the administration of 7 cc of gadavist for intravenous contrast. COMPARISON: Preop planning CT dated March 11, 2017 and MR brain dated February 16, 2017. FINDINGS: Interval left frontal craniotomy with resection of the left greater wing sphenoid meningioma. Small amount of T1 hyperintense blood products about the anterior horn of the left temporal lobe. Persistent dural enhancement in this region is noted. Small amount of extra-axial fluid and air overlie the left frontal lobe. There is additional subdural blood along the falx measuring several millimeters in thickness. The T2 signal alteration within the left temporal and parietal lobes is unchanged. Ventricles are stable in size.. Stable patchy bilateral subcortical and periventricular T2 signal alteration on the FLAIR sequence which are nonspecific and likely represent small vessel ischemic change. The central intracranial flow voids are normal in course and caliber. The orbits are normal. Right greater than left maxillary mucosal thickening. Remaining paranasal sinuses, mastoid air cells, and middle ear spaces are clear. Procedure Note Antonino Diaz MD - 03/12/2017 EXAMINATION: MRI BRAIN WWO CONTRAST (GENERIC) CLINICAL HISTORY: s/p tumor resection, assess for residual TECHNIQUE: MRI of the brain before and after the administration of 7 cc of gadavistfor intravenous contrast. COMPARISON: Preop planning CT dated March 11, 2017 and MR brain dated February. FINDINGS: Interval left frontal craniotomy with resection of the left greater wing sphenoid meningioma. Small amount of T1 hyperintense blood products aboutthe anterior horn of the left temporal lobe. Persistent dural enhancement inthis region is noted. Small amount of extra-axial fluid and air overlie theleft frontal lobe. There is additional subdural blood along the falxmeasuring several millimeters in thickness. The T2 signal alteration within the left temporal and parietal lobes is unchanged. Ventricles are stable in size.. Stable patchy bilateral subcortical and periventricular T2 signalalteration on the FLAIR sequence which are nonspecific and likely represent smallvessel ischemic change. The central intracranial flow voids are normal in courseand caliber. The orbits are normal. Right greater than left maxillarymucosal thickening. Remaining paranasal sinuses, mastoid air cells, and middleear spaces are clear. IMPRESSION 1. Interval gross total resection of the left greater wing sphenoidmeningioma, with expected postoperative change at the site of the resection. 2. Small amount of subdural blood along the falx without significantmass effect. I have personally reviewed the image(s) and the residents interpretationand agree with the findings, ANTONINO DIAZ at 03/12/2017 5:30 PM Mani Sung MD IMG MRI ORDERABLES * Phosphorus (03/12/2017 12:35 AM EST) Phosphorus 3.5 2.5 - 4.5 mg/dL [facility] Blood specimen (specimen) Venous Draw / Unknown 03/12/2017 12:35 AM EST 03/12/2017 12:42 AM EST Narrative Resulting Agency Comment Spec In Lab Mani Sung MD CHEMISTRY ORDERABLES Performing Organization Address City/[facility]/ZIP Co de Phone Number [facility] [place] [address] * Magnesium (03/12/2017 12:35 AM EST) Magnesium 0.70 0.69 - 1.07 mmol/L [facility] Blood specimen (specimen) Venous Draw / Unknown 03/12/2017 12:35 AM EST 03/12/2017 12:42 AM EST Narrative Resulting Agency Comment Spec In Lab Mani Sung MD CHEMISTRY ORDERABLES Performing Organization Address City/[facility]/ZIP Co de Phone Number [facility] [place] [address] * (ABNORMAL) Differential, Automated (03/12/2017 12:35 AM EST) Pathologist [facility] Neutrophil % 89.5 % [facility] Neutrophil Absolute 10.80(H) 1.70 - 6.10 x10(3)/mc L [facility] Lymph % 6.7 % [facility] Lymphocytes Abs 0.8(L) 0.9 - 3.2 x10(3)/mc L [facility] Monocyte % 3.2 % [facility] Monocyte Abs 0.4 0.3 - 0.9 x10(3)/ L [facility] Eos % 0.0 % [facility] Eosinophils Abs 0.0 0.0 - 0.4 x10(3)/[facility] Basophil % 0.2 % [facility] Baso Absolute 0.0 0.0 - 0.1 x10(3)/ L [facility] Immature Gran % 0.40 % [facility] Comment: Immature granulocytes(IG's)percentage and absolute count will include metamyelocytes, myelocytes, and promyelocytes. Blood smears from CBCs yielding IG's will be scanned manually for concordance. If this scan disagrees with the automated IG or if promyelocytes are noted, a manual differential will be performed. Immature Gran Absolute 0.05(H) 0.00 - 0.04 x10(3)/ L [facility] Blood specimen (specimen) 03/12/2017 12:35 AM EST 03/12/2017 12:41 AM EST Narrative Resulting Agency Comment Spec In Lab Mani Sung MD [place] [address] * (ABNORMAL) Hemogram (03/12/2017 12:35 AM EST) [facility] White Blood Cell 12.1(H) 4.0 - 9.5 x10(3)/ L [facility] Red Blood Cell 3.97(L) 4.00 - 5.21 x10(6)/mc L [facility] Hemoglobin 11.4(L) 11.7 - 15.5 gm/dL [facility] Hematocrit 33.8(L) 35.7 - 45.8 % [facility] Mean Cell Volume 85.1 82.6 - 94.4 fL [facility] Mean Cell Hemoglobin 28.7 27.1 - 32.0 pg [facility] Mean Cell Hemoglobin Concentration 33.7 31.7 - 35.0 gm/dL [facility] Platelet 216 145 - 357 x10(3)/[facility] RDW Standard Deviation 39.7 37.0 - 46.0 [facility] RDW coefficient of variation 12.7 11.5 - 14.1 % [facility] Mean Platelet Volume 9.2 7.6 - 12.9 fL [facility] NRBC% auto 0.0 % [facility] NRBC Absolute 0.000 0.000 - 0.000 x10(3)/[facility] Blood specimen (specimen) 03/12/2017 12:35 AM EST 03/12/2017 12:41 AM EST Narrative Resulting Agency Comment Spec In Lab Mani Sung MD HEMATOLOGY ORDERABLE S [facility] [place] [address] * (ABNORMAL) Basic Metabolic Panel (non-fasting) (03/12/2017 12:35 AM EST) Pathologist [facility] Glucose 163 65 - 199 mg/dL [facility] Comment:Diabetes: >=200 mg/d L plus symptoms Blood Urea Nitrogen 14 8 - 18 mg/dL [facility] Creatinine 0.59(L) 0.70 - 1.20 mg/dL [facility] Sodium 142 135 - 145 mmol/L [facility] Potassium 3.1(L) 3.5 - 5.0 mmol/L [facility] Comment: result rechecked-douglas Please note: ??Patients with WBC >100,000 may have falsely elevated Potassium levels. ??For accurate Potassium quantification in these patients send serum separator tube (gold top) for subsequent determinations. ??Contact the Clinical Chemistry Laboratory if there are any questions. Chloride 107 98 - 107 mmol/L [facility] Carbon Dioxide 20(L) 22 - 31 mmol/L [facility] Anion Gap 15 5 - 15 mmol/L [facility] Calcium 8.1(L) 8.5 - 10.5 mg/dL [facility] Est Glomerular Filtration Rate >60 >=60 [facility] Comment: The reported eGFR should be multiplied by 1.2 for patients. The MDRD is not an appropriate measure of renal function for patients with body mass extremes or in patients with acute kidney failure. [email or web address]/DHnkdep [email or web address]/DHMCnkf Blood specimen (specimen) 03/12/2017 12:35 AM EST 03/12/2017 12:41 AM EST Narrative Resulting Agency Comment Spec In Lab Angel Morse APRN CHEMISTRY ORDERABLES Performing Organization Address City/[facility] Co de Phone Number [facility] [place] [address] * Specimen to Pathology (surgical or derm) (03/11/2017 4:52 PM EST) AP Specimen 03/11/2017 4:52 PM EST 03/11/2017 4:52 PM EST Narrative [facility] - 03/11/2017 4:52 PM EST Specimen requisition ordered. ??Separate Pathology report to follow Mani Sung MD PATHOLOGY/CYTOLOGY O RDERABLES Performing Organization Address [facility] Co de Phone Number [facility] [place] [address] * Specimen to Pathology (surgical or derm) (03/11/2017 3:22 PM EST) AP Specimen 03/11/2017 3:22 PM EST 03/11/2017 3:22 PM EST Narrative [facility] - 03/11/2017 3:22 PM EST Specimen requisition ordered. ??Separate Pathology report to follow Mani Sung MD PATHOLOGY/CYTOLOGY O RDERAERIKA Performing Organization Address [facility] Co de Phone Number [facility] [place] [address] * Surgical Pathology Report (03/11/2017 3:21 PM EST) Final Diagnosis [id number] ? Location: [facility]; [facility]; The signing pathologist has (i) examined the relevant preparation(s) for the specimen(s) and (ii) rendered or confirmed the diagnosis(es). . ?Surgical Pathology DIAGNOSIS SECRETORY MENINGIOMA, grade I Electronically signed by: ??Jorge Luis Cervantes MD Verified: ??03/18/2017 ?Pathologist Performed at: ??-[facility] [place] [facility] [place], [place], [place] DISCUSSION The lesion excised from the left sphenoid wing is a tumor composed of meningothelial cells many of which have eosinophilic droplets in their cytoplasm. ??Mitoses are not seen. ??There is no evidence of brain invasion and there is no tumor necrosis. Pleomorphism is minimal. ADDITIONAL STUDIES Immunohistochemistry Studies: Formalin-fixed, paraffin-embedded tissue sections are studied using the polymer technique with appropriate positive and negative controls. ?These IHC studies provide the pathologist with adjunctive diagnostic information. Antibody specificity has been verified by testing antibodies on a series of in-house tissues with known immunohistochemical performance characteristics. The clinical interpretation of any antibody positive staining or its absence is evaluated within the context of clinical presentation, morphology, histopathological criteria and other diagnostic tests. Block ??Antibody Result (Positive/Negative) B1 ??GFAP No MULE TENDER parenchyma is present. B1 ??KI67 Nuclear positivity is 2.0%-3.0% B1 ??ISREAL Tumor cell cytoplasm is positive. Special stains are performed. Block ??Stain Result ( Positive / Negative ) B1 ??PAS Cytoplasmic droplets in tumor cells are positive. CLINICAL INFORMATION Specimen Submitted: A - Left sphenoid wing tumor for frozen section B - Left sphenoid wing tumor Clinical History: Meningioma Clinical Diagnosis: Meningioma FROZEN SECTION Frozen section(s) performed. ??Please refer to separate electronic frozen section report(s). . SPECIMEN PROCESSING A - ??Labeled/Fixative: Left sphenoid wing tumor, fresh for frozen. Quantity/Size: Multiple, six cm in aggregate. Tissue Description: Small fragments of vazquez brown tissue. Sections/Processing: Touch prep and frozen section are performed. Remaining tissue from frozen section is entirely submitted (T1) B - ??Labeled/Fixative: Left sphenoid wing tumor, fresh. Quantity/Size: Multiple, 4.0 x 1.7 x 0.2 cm. Tissue Description: Fragments of hemorrhagic friable, dark brown-black tissue as well as thin segment of vazquez-pink fibrous tissue. Sections/Processing: (1) personnel representative section of dark brown-black friable tissue; (2) personnel representative section of vazquez-pink fibrous tissue (T2) ??sm ?Frozen Section FROZEN SECTION DIAGNOSIS A - Left sphenoid wing, smear and frozen section: ??Meningioma 03/11/17 15:52 Electronically signed by: ??Jessy Daly MD Verified: ??03/11/2017 ?Pathologist Performed at: ??-[facility] [place] [facility] [place], [place], [place] This intraoperative consultation should be interpreted as a preliminary diagnosis pending review of the entire specimen and special studies, if any. 03/18/2017 2:53 PM [facility] BRAIN STRUCTURE / Unknown 03/11/2017 3:21 PM EST 03/11/2017 3:21 PM EST BRAIN STRUCTURE / Unknown 03/11/2017 3:21 PM EST 03/11/2017 3:21 PM EST Mani Sung MD PATHOLOGY/CYTOLOGY O RDERABLES [facility] [place] [address] * CT Head wo Contrast (Generic) (03/11/2017 1:11 PM EST) Anatomical Region Laterality Modality Head Computed Tomogra phy Impressions 03/11/2017 4:18 PM EST Similar appearance of a left anterior middle cranial fossa mass with adjacent vasogenic edema. I have personally reviewed the image(s) and the residents interpretation and agree with the findings, Elvin Snow MD at 03/11/2017 4:18 PM Narrative 03/11/2017 4:18 PM EST EXAMINATION: CT HEAD WO CONTRAST (GENERIC) CLINICAL HISTORY: MENINGIOMA TECHNIQUE: Helically acquired CT sections through the head were obtained without intravenous contrast. COMPARISON: MR of the brain 02/16/2017 FINDINGS: CT head performed with fiducials for Stealth guidance. Noncontrast examination. There is a mass in the left anterior cranial fossa with intermediate attenuation similar to that of adjacent mace matter parenchyma. There is adjacent vasogenic edema in the left temporal lobe extending into the left posterior temporal lobe and the white matter tracts of the left basal ganglia similar to MRI of 02/16/2017. There is local mass effect. There is a mild shift of the temporal uncus. Procedure Note Elvin Calderon MD - 03/11/2017 EXAMINATION: CT HEAD WO CONTRAST (GENERIC) CLINICAL HISTORY: MENINGIOMA TECHNIQUE: Helically acquired CT sections through the head were obtainedwithout intravenous contrast. COMPARISON: MR of the brain 02/16/2017 FINDINGS: CT head performed with fiducials for Stealth guidance.Noncontrast examination. There is a mass in the left anterior cranial fossa with intermediate attenuation similar to that of adjacent mace matterparenchyma. There is adjacent vasogenic edema in the left temporal lobe extending intothe left posterior temporal lobe and the white matter tracts of the leftbasal ganglia similar to MRI of 02/16/2017. There is local mass effect. There is a mild shift of the temporal uncus. 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 I have personally reviewed the image(s) and the residents interpretationand agree with the findings, Elvin Snow MD at 03/11/2017 4:18 PM 4:18 PM Mani Sung MD IMG CT ORDERABLES * SCAN DOC: IMPLANTABLE DEVICES (03/11/2017 12:00 AM EST) Narrative 03/11/2017 12:00 AM EST Ordered by an unspecified provider. Scanning Provider MEDIA MGR SCAN EXT O RDR/RSLT documented in this encounter Visit Diagnoses Not on filedocumented in this encounter Administered Medications Inactive Administered Medications - up to 3 most recent administrations Medication Order MAR Action Action Date Dose Rate Site acetaminophen (TYLENOL) suppository 975 mg 975 mg, Rectal, EVERY 6 HOURS PRN, Starting on Sat03/11/17 at 2114, Until Sat03/13/17 at 1453, Fever, Maximum dose of acetaminophen is 4000 mg from all sources in 24 hours., Routine acetaminophen (TYLENOL) tablet 1,000 mg 1,000 mg, Oral, EVERY 6 HOURS PRN, Starting on Sat03/11/17 at 2114, Until Sat03/13/17 at 1453, Pain, Maximum dose of acetaminophen is 4000 mg from all sources in 24 hours., Routine Given 03/13/2017 9:27 AM EST 1,000 mg Given 03/13/2017 4:05 AM EST 1,000 mg Given 03/12/2017 9:20 PM EST 1,000 mg bacitracin injection ONCE PRN, Starting on Sat03/11/17 at 1735, Until Sat03/13/17 at 1453, Intra-Operative (Intra-Procedure), Routine Given 03/11/2017 5:35 PM EST 10,000 Units 19- Surgical Site bacitracin-polymyxin b (POLYSPORIN) ointment ONCE PRN, Starting on Sat03/11/17 at 1430, Until Sat03/13/17 at 1453, Intra-Operative (Intra-Procedure) Given 03/11/2017 2:30 PM EST 1 Tube 19- Surgical Site BUpivacaine-EPINEPHrine 0.5 %-1:200,000 injection ONCE PRN, Starting on Sat03/11/17 at 1430, Until Sat03/13/17 at 1453, Intra-Operative (Intra-Procedure), Routine Given 03/11/2017 2:30 PM EST 10 mLs 19- Surgical Site dexamethasone (DECADRON) injection 4 mg 4 mg, Intravenous, EVERY 6 HOURS SCHEDULED, First dose on Sat03/11/17 at 1930, Until Discontinued, Give IV if unable to take PO., Routine Given 03/12/2017 6:09 AM EST 4 mg Given 03/12/2017 12:27 AM EST 4 mg Given 03/11/2017 7:52 PM EST 4 mg dexamethasone (DECADRON) tablet 4 mg 4 mg, Oral, EVERY 6 HOURS SCHEDULED, First dose on Sat03/11/17 at 1930, Until Discontinued, Routine Given 03/13/2017 11:51 AM EST 4 mg Given 03/13/2017 5:51 AM EST 4 mg Given 03/13/2017 12:13 AM EST 4 mg famotidine (PEPCID) injection 20 mg 20 mg, Intravenous, 2 TIMES DAILY, First dose on Sat03/11/17 at 2100, Until Discontinued, Routine Given 03/11/2017 10:20 PM EST 20 mg famotidine (PEPCID) tablet 20 mg 20 mg, Oral, 2 TIMES DAILY, First dose on Sat03/11/17 at 2100, Until Discontinued, If unable to take PO, may give IV, Routine Given 03/13/2017 9:24 AM EST 20 m g Given 03/12/2017 8:05 PM EST 20 mg Given 03/12/2017 8:51 AM EST 20 mg gelatin compressed (GELFOAM) sponge ONCE PRN, Starting on Sat03/11/17 at 1416, Until Sat03/13/17 at 1453, Intra-Operative (Intra-Procedure) Given 03/11/2017 2:31 PM EST 100 cm 19- Surgical Site hydrALAZINE (APRESOLINE) injection 10 mg 10 mg, Intravenous, EVERY 1 HOUR PRN, Starting on Sat03/11/17 at 1900, Until Sat03/13/17 at 1453, High Blood Pressure, Target systolic blood pressure (SBP) less than 160 mmHg. Administer 10 mg IV . May repeat once in 15 minutes if SBP greater than target BP (caution if HR greater than 90). Use if labetalol ineffective after 1 hour., Routine Given 03/11/2017 8:16 PM EST 10 mg levETIRAcetam (KEPPRA) tablet 500 mg 500 mg, Oral, 2 TIMES DAILY, First dose on Sat03/11/17 at 2100, Until Discontinued, Routine Given 03/13/2017 9:24 AM EST 500 mg Given 03/12/2017 8:05 PM EST 500 mg Given 03/12/2017 8:51 AM EST 500 mg ondansetron (ZOFRAN) injection 4 mg 4 mg, Intravenous, EVERY 8 HOURS PRN, Starting on Sat03/11/17 at 1900, Until Sat03/13/17 at 1453, Nausea, If multiple antiemetics are ordered, use ondansetron first, prochlorperazine second, and metaclopramide third. May repeat times one in 30 minutes if ineffective Given 03/11/2017 8:05 PM EST 4 mg ondansetron (ZOFRAN) tablet 4 mg 4 mg, Oral, EVERY 8 HOURS PRN, Starting on Sat03/11/17 at 1900, Until Sat03/13/17 at 1453, Nausea, Vomiting, If multiple antiemetics are ordered, use ondansetron first, prochlorperazine second, and metaclopramide third. PO Preferred. If patient unable to take PO, may give IV if ordered. May repeat times one in 45 minutes if ineffective., Routine oxyCODONE (ROXICODONE) immediate release tablet 10 mg 10 mg, Oral, EVERY 4 HOURS PRN, Starting on Sat03/11/17 at 1900, Until Sat03/13/17 at 1453, Pain, severe pain (7-10), May give an additional 5 mg in 30 minutes once if pain not relieved. Severe pain (7-10), Routine Given 03/11/2017 7:14 PM EST 10 mg oxyCODONE (ROXICODONE) immediate release tablet 5 mg 5 mg, Oral, EVERY 4 HOURS PRN, Starting on Sat03/11/17 at 1900, Until Sat03/13/17 at 1453, Pain, mild to moderate pain (1-6), May give an additional 5 mg in 30 minutes once if pain not relieved. Mild to moderate pain (1-6), Routine Given 03/13/2017 12:13 AM EST 5 mg Given 03/12/2017 8:11 PM EST 5 mg Given 03/12/2017 4:15 PM EST 5 mg potassium chloride (K-DUR/KLOR-CON) extended release tablet 20 mEq 20 mEq, Oral, EVERY 4 HOURS PRN, Starting on Sat03/12/17 at 0626, Until Sat03/13/17 at 1453, hypokalemia, Administer for serum potassium (mMol/L) of 3.9 - 4 See instructions for Potassium Protocol in online policies., Routine potassium chloride (K-DUR/KLOR-CON) extended release tablet 40 mEq 40 mEq, Oral, EVERY 4 HOURS PRN, Starting on Sat03/12/17 at 0626, Until Sat03/13/17 at 1453, hypokalemia, Administer for serum potassium (mMol/L) of 3.6 - 3.8 See instructions for Potassium Protocol in online policies., Routine senna-docusate (PERICOLACE) 8.6-50 mg per tablet 2 tablet 2 tablet, Oral, 2 TIMES DAILY, First dose on Sat03/11/17 at 2100, Until Discontinued, Routine Given 03/13/2017 9:24 AM EST 2 tablets Given 03/12/2017 8:04 PM EST 2 tablets Given 03/12/2017 8:51 AM EST 2 tablets thrombin (Bovine) (THROMBINAR) kit ONCE PRN, Starting on Sat03/11/17 at 1417, Until Sat03/13/17 at 1453, Intra-Operative (Intra-Procedure) Given 03/11/2017 2:31 PM EST 20,000 Units 19- Surgical Site documented in this encounter Active and Recently Administered Medications Times are shown in EST. Scheduled Medication Order 03/11/2017 03/12/2017 03/13/2017 acetaminophen (OFIRMEV) injection 1,000 mg (COMPLETED) 1,000 mg, Intravenous, at 400 mL/hr, Administer over 15 Minutes, ONCE, 1 dose, On Sat03/11/17 at 2030, Maximum dose of acetaminophen is 4000 mg from all sources in 24 hours., Routine, Is ketorolac (Toradol) IV contraindicated? Yes, Can this patient tolerate oral medications or suppositories? No 2104 (Given - Provider: Jordan Lopez RN) dexamethasone (DECADRON) injection 4 mg(Linked Group 1) 4 mg, Intravenous, EVERY 6 HOURS SCHEDULED, First dose on Sat03/11/17 at 1930, Until Discontinued, Give IV if unable to take PO., Routine 1951 (Given - Provider: Jordan Lopez RN) 002 (Given - Provider: Jordan Lopez RN)0609 (Given - Provider: Jordan Lopez RN)1154 (See Alternative - Provider: Faustina Sewell RN)1800 (See Alternative - Provider: Faustina Sewell RN) 0013 (See Alternative - Provider: Denis Stout RN)0551 (See Alternative - Provider: Denis Stout RN)1151 (See Alternative - Provider: April Ignacio, MARIANNA) dexamethasone (DECADRON) tablet 4 mg(Linked Group 1) 4 mg, Oral, EVERY 6 HOURS SCHEDULED, First dose on Sat03/11/17 at 1930, Until Discontinued, Routine 1951 (See Alternative - Provider: Jordan Lopez RN) 26 (See Alternative - Provider: Jordan Lopez RN)0609 (See Alternative - Provider: Jordan Lopez RN)1154 (Given - Provider: Faustina Sewell RN)1800 (Given - Provider: Faustina Sewell RN) 0013 (Given - Provider: Denis Stout RN)0551 (Given - Provider: Denis Stout RN)1151 (Given - Provider: April Ignacio, MARIANNA) famotidine (PEPCID) injection 20 mg(Linked Group 2) 20 mg, Intravenous, 2 TIMES DAILY, First dose on Sat03/11/17 at 2100, Until Discontinued, Routine 2219 (Given - Provider: Roxann Brice RN) 0851 (See Alternative - Provider: Conner Daniel RN)2004 (See Alternative - Provider: Denis Stout RN) 0924 (See Alternative - Provider: April Ignacio, RN) famotidine (PEPCID) tablet 20 mg(Linked Group 2) 20 mg, Oral, 2 TIMES DAILY, First dose on Sat03/11/17 at 2100, Until Discontinued, If unable to take PO, may give IV, Routine 2220 (See Alternative - Provider: Roxann Brice RN) 0851 (Given - Provider: Conner Daniel RN)2004 (Given - Provider: Dneis Stout RN) 923 (Given - Provider: April Ignacio, RN) levETIRAcetam (KEPPRA) 500 mg in sodium chloride 0.82% 100 mL (CANCELED)(Linked Group 3) 500 mg, Intravenous, at 400 mL/hr, 2 TIMES DAILY, First dose on Sat03/11/17 at 2100, Until Discontinued, Routine 2220 (New Bag - Provider: Roxann Brice RN)2234 (Stopped - Provider: Roxann Brice RN) 0851 (See Alternative - Provider: Conner Daniel RN)2004 (See Alternative - Provider: Denis Stout RN) 923 (See Alternative - Provider: April Ignacio, MARIANNA) levETIRAcetam (KEPPRA) tablet 500 mg(Linked Group 3) 500 mg, Oral, 2 TIMES DAILY, First dose on Sat03/11/17 at 2100, Until Discontinued, Routine 2220 (See Alternative - Provider: Roxann Brice RN)2234 (See Alternative - Provider: Roxann Brice RN) 0851 (Given - Provider: Conner Daniel RN)2004 (Given - Provider: Denis Stout RN) 923 (Given - Provider: April Ignacio, RN) magnesium sulfate 2 g in sterile water 50 mL (COMPLETED) 2 g, Intravenous, ONCE, 1 dose, On Sat03/12/17 at 0245, Administer over 120 Minutes 0300 (New Bag - Provider: Jordan Lpoez, MARIANNA)0500 (Stopped - Provider: Jordan Lopez, MARIANNA) potassium chloride (K-DUR/KLOR-CON) extended release tablet 60 mEq (COMPLETED) 60 mEq, Oral, ONCE, 1 dose, On Sat03/12/17 at 0200, Routine 0157 (Given - Provider: Jordan Lopez RN) senna-docusate (PERICOLACE) 8.6-50 mg per tablet 2 tablet 2 tablet, Oral, 2 TIMES DAILY, First dose on Sat03/11/17 at 2100, Until Discontinued, Routine 2099 (Hold - Provider: Roxann Brice RN - Reason: Order parameters not met) 0851 (Given - Provider: Conner Daniel, RN)2003 (Given - Provider: Denis Stout RN) 09 (Given - Provider: April Ignacio RN) sodium chloride 0.9 % flush 5 mL (CANCELED) 5 mL, Intravenous, 2 TIMES DAILY, First dose on Sat03/11/17 at 2100, Until Discontinued, Recovery (Recovery-Hospital Unit), Routine 2099 (Given - Provider: Roxann Brice RN) vancomycin 1 g in 0.9 % sodium chloride 200 mL (COMPLETED) 1,000 mg, Intravenous, at 200 mL/hr, EVERY 12 HOURS, 2 doses, First dose on Sat03/11/17 at 2200, Last dose on Sat03/12/17 at 1000, Maximum infusion rate is 1 gram/hour. If flushing of the face, neck, upper body, arms, and/or back occurs decrease infusion rate by 50% to reduce the severity of symptoms. This medication may have an associated drug lab level. Please see MAR for scheduled level. Warning Vesicant/Irritant Medication , Routine 2223 (New Bag - Provider: Roxann Brice RN)2323 (Stopped - Provider: Jordan Lopez RN) 1000 (New Bag - Provider: Faustina Sewell RN)1100 (Stopped - Provider: Faustina Sewell RN) vancomycin 1.5 g in sodium chloride 0.9% 250 mL (COMPLETED) 1.5 g, Intravenous, at 166.7 mL/hr, ONCE, 1 dose, On Sat03/11/17 at 1230, Maximum infusion rate is 1 gram/hour. If flushing of the face, neck, upper body, arms, and/or back occurs decrease infusion rate by 50% to reduce the severity of symptoms. This medication may have an associated drug lab level. Please see MAR for scheduled level. Warning Vesicant/Irritant Medication , Routine 1348 (Given - Provider: Marques Cook CRNA) Continuous Medication Order 03/11/2017 03/12/2017 03/13/2017 lactated Ringers infusion 1,000 mL (CANCELED) 1,000 mL, at 100 mL/hr, Intravenous, CONTINUOUS, Starting on Sat03/11/17 at 1130, Until Sat03/11/17 at 1900, Day of Surgery (Day of Procedure) 1204 (New Bag - Provider: Marques Cook CRNA)1307 (Anesthesia Volume Adjustment - Provider: Marques Cook CRNA)1515 (New Bag - Provider: Tejas Pederson MD)1627 (New Bag - Provider: Marques Cook CRNA)1849 (Stopped - Provider: Marques Cook CRNA) sodium chloride 0.9% infusion (CANCELED) 75 mL/hr, Intravenous, CONTINUOUS, Starting on Sat03/11/17 at 1930, Until Sat03/12/17 at 0749, Recovery (Recovery-Hospital Unit) 1915 (New Bag - Provider: Jordan Lopez RN) PRN Medication Order 03/11/2017 03/12/2017 03/13/2017 acetaminophen (TYLENOL) suppository 975 mg(Linked Group 4) 975 mg, Rectal, EVERY 6 HOURS PRN, Starting on Sat03/11/17 at 2114, Until Sat03/13/17 at 1453, Fever, Maximum dose of acetaminophen is 4000 mg from all sources in 24 hours., Routine 0209 (See Alternative - Provider: Jordan Lopez RN)0850 (See Alternative - Provider: Conner Daniel RN)1515 (See Alternative - Provider: Kristen Emmanuel, MARIANNA)2120 (See Alternative - Provider: Denis Stout, MARIANNA) 0405 (See Alternative - Provider: Denis Stout, MARIANNA)0927 (See Alternative - Provider: April Ignacio RN) acetaminophen (TYLENOL) tablet 1,000 mg(Linked Group 4) 1,000 mg, Oral, EVERY 6 HOURS PRN, Starting on Sat03/11/17 at 2114, Until Sat03/13/17 at 1453, Pain, Maximum dose of acetaminophen is 4000 mg from all sources in 24 hours., Routine 0209 (Given - Provider: Jordan Lopez, RN)0850 (Given - Provider: Conner Daniel, RN)1515 (Given - Provider: Kristen Emmanuel, RN)2120 (Given - Provider: Denis Stout, RN) 0405 (Given - Provider: Denis Stout, RN)0927 (Given - Provider: April Ignacio, RN) bacitracin injection (CANCELED) ONCE PRN, Starting on Sat03/11/17 at 1735, Until Sat03/13/17 at 1453, Intra-Operative (Intra-Procedure), Routine 1735 (Given - Provider: Mani Sung MD - Comment: 44639 units in a liter LR after dura closed) bacitracin-polymyxin b (POLYSPORIN) ointment (CANCELED) ONCE PRN, Starting on Sat03/11/17 at 1430, Until Sat03/13/17 at 1453, Intra-Operative (Intra-Procedure) 1430 (Given - Provider: Mani Sung MD - Comment: Used on pins when clamp applied) bisacodyl (DULCOLAX) suppository 10 mg 10 mg, Rectal, DAILY PRN, Starting on Sat03/11/17 at 1900, Until Sat03/13/17 at 1453, Constipation, Administer if needed per patient's routine or if no bowel movement within 48 hours to achieve: 1) One bowel movement at least every 48 hours, AND 2) Without straining. If multiple bowel medications ordered, consider adding if docusate or milk of magnesia not sufficient., Routine BUpivacaine-EPINEPHrine 0.5 %-1:200,000 injection (CANCELED) ONCE PRN, Starting on Sat03/11/17 at 1430, Until Sat03/13/17 at 1453, Intra-Operative (Intra-Procedure), Routine 1430 (Given - Provider: Mani Sung MD) diaZEPam (VALIUM) tablet 5 mg (COMPLETED) 5 mg, Oral, ONCE PRN, 1 dose, Starting on Sat03/12/17 at 1027, Until Sat03/12/17 at 1148, Anxiety, Prior to MRI, Routine 1148 (Given - Provider: Faustina Sewell, MARIANNA) gadobutrol (GADAVIST) 1 mMol/mL injection 7 mL (COMPLETED) 7 mL, Intravenous, ONCE PRN, 1 dose, Starting on Sat03/12/17 at 1320, Until Sat03/12/17 at 1320, Per Protocol, Routine 1320 (Given - Provider: Rylee Snell) gelatin compressed (GELFOAM) sponge (CANCELED) ONCE PRN, Starting on Sat03/11/17 at 1416, Until Sat03/13/17 at 1453, Intra-Operative (Intra-Procedure) 1431 (Given - Provider: Mani Sung MD - Comment: Gelfoam soaked in thrombin 20,000 units and used as needed throughout the case.) hydrALAZINE (APRESOLINE) injection 10 mg 10 mg, Intravenous, EVERY 1 HOUR PRN, Starting on Sat03/11/17 at 1900, Until Sat03/13/17 at 1453, High Blood Pressure, Target systolic blood pressure (SBP) less than 160 mmHg. Administer 10 mg IV . May repeat once in 15 minutes if SBP greater than target BP (caution if HR greater than 90). Use if labetalol ineffective after 1 hour., Routine 2015 (Given - Provider: Jordan Lopez RN) labetalol (NORMODYNE,TRANDATE) injection 10-20 mg 10-20 mg, Intravenous, EVERY 1 HOUR PRN, Starting on Sat03/11/17 at 1900, Until Sat03/13/17 at 1453, High Blood Pressure, Target systolic blood pressure (SBP) less than 160 mmHg. Administer 10 mg over 2 minutes. May repeat every 15 minutes if SBP remains above goal. If inadequate effect with second 10 mg dose then increase dose to 20 mg for subsequent dosing every 15 minutes. Dose not to exceed 300 mg per day. Hold if pulse is less than 50 beats per minute., Routine ondansetron (ZOFRAN) injection 4 mg(Linked Group 5) 4 mg, Intravenous, EVERY 8 HOURS PRN, Starting on Sat03/11/17 at 1900, Until Sat03/13/17 at 1453, Nausea, If multiple antiemetics are ordered, use ondansetron first, prochlorperazine second, and metaclopramide third. May repeat times one in 30 minutes if ineffective 2004 (Given - Provider: Jordan Lopez, RN) ondansetron (ZOFRAN) tablet 4 mg(Linked Group 5) 4 mg, Oral, EVERY 8 HOURS PRN, Starting on Sat03/11/17 at 1900, Until Sat03/13/17 at 1453, Nausea, Vomiting, If multiple antiemetics are ordered, use ondansetron first, prochlorperazine second, and metaclopramide third. PO Preferred. If patient unable to take PO, may give IV if ordered. May repeat times one in 45 minutes if ineffective., Routine 2004 (See Alternative - Provider: Jordan Lopez, RN) oxyCODONE (ROXICODONE) immediate release tablet 10 mg(Linked Group 6) 10 mg, Oral, EVERY 4 HOURS PRN, Starting on Sat03/11/17 at 1900, Until Sat03/13/17 at 1453, Pain, severe pain (7-10), May give an additional 5 mg in 30 minutes once if pain not relieved. Severe pain (7-10), Routine 1913 (Given - Provider: Jordan Lopez RN) 25 (See Alternative - Provider: Jordan Lopez RN)1614 (See Alternative - Provider: Faustina Sewell, MARIANNA)2010 (See Alternative - Provider: Denis Stout RN) 12 (See Alternative - Provider: Denis Stout RN) oxyCODONE (ROXICODONE) immediate release tablet 5 mg(Linked Group 6) 5 mg, Oral, EVERY 4 HOURS PRN, Starting on Sat03/11/17 at 1900, Until Sat03/13/17 at 1453, Pain, mild to moderate pain (1-6), May give an additional 5 mg in 30 minutes once if pain not relieved. Mild to moderate pain (1-6), Routine 1913 (See Alternative - Provider: Jordan Lopez RN) 25 (Given - Provider: Jordan Lopez RN)1614 (Given - Provider: Faustina eSwell, MARIANNA)2010 (Given - Provider: Denis Stout RN) 12 (Given - Provider: Denis Stout RN) polyethylene glycol (MIRALAX) packet 17 g 17 g, Oral, DAILY PRN, Starting on Sat03/11/17 at 1900, Until Sat03/13/17 at 1453, Constipation, Administer if needed per patient's routine or if no bowel movement within 48 hours to achieve: 1) One bowel movement at least every 48 hours, AND 2) Without straining. If multiple bowel medications ordered, consider polyethylene glycol(MIRALAX) first., Routine potassium chloride (K-DUR/KLOR-CON) extended release tablet 20 mEq(Linked Group 7) 20 mEq, Oral, EVERY 4 HOURS PRN, Starting on Sat03/12/17 at 0626, Until Sat03/13/17 at 1453, hypokalemia, Administer for serum potassium (mMol/L) of 3.9 - 4 See instructions for Potassium Protocol in online policies., Routine potassium chloride (K-DUR/KLOR-CON) extended release tablet 40 mEq(Linked Group 7) 40 mEq, Oral, EVERY 4 HOURS PRN, Starting on Sat03/12/17 at 0626, Until Sat03/13/17 at 1453, hypokalemia, Administer for serum potassium (mMol/L) of 3.6 - 3.8 See instructions for Potassium Protocol in online policies., Routine thrombin (Bovine) (THROMBINAR) kit (CANCELED) ONCE PRN, Starting on Sat03/11/17 at 1417, Until Sat03/13/17 at 1453, Intra-Operative (Intra-Procedure) 1431 (Given - Provider: Mani Sung MD - Comment: Gelfoam soaked in thrombin 20,000 units and used as needed throughout the case.) Linked Groups Order Group 1: dexamethasone (DECADRON) injection 4 mgJump to med 4 mg, Intravenous, EVERY 6 HOURS SCHEDULED, First dose on Sat03/11/17 at 1930, Until Discontinued, Give IV if unable to take PO., Routine Or dexamethasone (DECADRON) tablet 4 mgJump to med 4 mg, Oral, EVERY 6 HOURS SCHEDULED, First dose on Sat03/11/17 at 1930, Until Discontinued, Routine Group 2: famotidine (PEPCID) tablet 20 mgJump to med 20 mg, Oral, 2 TIMES DAILY, First dose on Sat03/11/17 at 2100, Until Discontinued, If unable to take PO, may give IV, Routine Or famotidine (PEPCID) injection 20 mgJump to med 20 mg, Intravenous, 2 TIMES DAILY, First dose on Sat03/11/17 at 2100, Until Discontinued, Routine Group 3: levETIRAcetam (KEPPRA) tablet 500 mgJump to med 500 mg, Oral, 2 TIMES DAILY, First dose on Sat03/11/17 at 2100, Until Discontinued, Routine Or levETIRAcetam (KEPPRA) 500 mg in sodium chloride 0.82% 100 mL (CANCELED)Jump to med 500 mg, Intravenous, at 400 mL/hr, 2 TIMES DAILY, First dose on Sat03/11/17 at 2100, Until Discontinued, Routine Group 4: acetaminophen (TYLENOL) tablet 1,000 mgJump to med 1,000 mg, Oral, EVERY 6 HOURS PRN, Starting on Sat03/11/17 at 2114, Until Sat03/13/17 at 1453, Pain, Maximum dose of acetaminophen is 4000 mg from all sources in 24 hours., Routine Or acetaminophen (TYLENOL) suppository 975 mgJump to med 975 mg, Rectal, EVERY 6 HOURS PRN, Starting on Sat03/11/17 at 2114, Until Sat03/13/17 at 1453, Fever, Maximum dose of acetaminophen is 4000 mg from all sources in 24 hours., Routine Group 5: ondansetron (ZOFRAN) tablet 4 mgJump to med 4 mg, Oral, EVERY 8 HOURS PRN, Starting on Sat03/11/17 at 1900, Until Sat03/13/17 at 1453, Nausea, Vomiting, If multiple antiemetics are ordered, use ondansetron first, prochlorperazine second, and metaclopramide third. PO Preferred. If patient unable to take PO, may give IV if ordered. May repeat times one in 45 minutes if ineffective., Routine Or ondansetron (ZOFRAN) injection 4 mgJump to med 4 mg, Intravenous, EVERY 8 HOURS PRN, Starting on Sat03/11/17 at 1900, Until Sat03/13/17 at 1453, Nausea, If multiple antiemetics are ordered, use ondansetron first, prochlorperazine second, and metaclopramide third. May repeat times one in 30 minutes if ineffective Group 6: oxyCODONE (ROXICODONE) immediate release tablet 5 mgJump to med 5 mg, Oral, EVERY 4 HOURS PRN, Starting on Sat03/11/17 at 1900, Until Sat03/13/17 at 1453, Pain, mild to moderate pain (1-6), May give an additional 5 mg in 30 minutes once if pain not relieved. Mild to moderate pain (1-6), Routine Or oxyCODONE (ROXICODONE) immediate release tablet 10 mgJump to med 10 mg, Oral, EVERY 4 HOURS PRN, Starting on Sat03/11/17 at 1900, Until Sat03/13/17 at 1453, Pain, severe pain (7-10), May give an additional 5 mg in 30 minutes once if pain not relieved. Severe pain (7-10), Routine Group 7: potassium chloride (K-DUR/KLOR-CON) extended release tablet 20 mEqJump to med 20 mEq, Oral, EVERY 4 HOURS PRN, Starting on Sat03/12/17 at 0626, Until Sat03/13/17 at 1453, hypokalemia, Administer for serum potassium (mMol/L) of 3.9 - 4 See instructions for Potassium Protocol in online policies., Routine Or potassium chloride (K-DUR/KLOR-CON) extended release tablet 40 mEqJump to med 40 mEq, Oral, EVERY 4 HOURS PRN, Starting on Sat03/12/17 at 0626, Until Sat03/13/17 at 1453, hypokalemia, Administer for serum potassium (mMol/L) of 3.6 - 3.8 See instructions for Potassium Protocol in online policies., Routine documented in this encounter Care Teams Rinkman Relationship Specialty Start Date End Date Crystal Howell APRN [address] [place] [address] PCP - General Family Medicine 02/27/17 documented as of this encounter
--- OUTSIDE RECORDS SUMMARY | 2023-12-30 18:42 | XMS_ITS | Encounter Summary ---
Author Organization [facility] Address [facility] [place] [address] Care Team Providers Care Data Analysis Assistant Name Role Phone Crystal Howell APRN Primary Care Provider [phone] Reason for Referral * Diagnostic Test (Routine) - Closed Specialty Diagnoses / Procedures Referred By Haseeb messina Referred To Contact Radiology Diagnoses MGM (meningioma) Procedures MRI Brain wwo Contrast (Generic) Mani Sung MD [facility] [place] [address] [place] [address] Referral ID Status Reason Start Date Expiration Date V isits Requested Visits Authorized [id number] Closed Specialty Service Requested 11/22/2020 05/25/2022 1 1 Encounter Details Date Type Department Care Team (Late st Contact Info) Description 11/21/2020 Telephone [place] [address] Riya Call Social History Tobacco Use Types [...] encounter Miscellaneous Notes * Telephone Encounter - Jen Augustin - 11/25/2020 4:20 PM EDT Spoke with pt to confirm appt details. MRI Brain wwo scheduled on 12/15/2020 to coordinate with f/u ov with [facility]. Pt uses [facility] so no appt card mailed. Closing encounter. * Telephone Encounter - Jen Augustin - 11/23/2020 9:16 AM EDT Spoke with pt and updated safety questions. E-mail sent to for radiology scheduling requests per current process. Need to coordinate MRI same day as f/u ov with JPA. Pt flexible on days with earliest check in 9am. Once MRI is scheduled, call pt to confirm appt details. * Telephone Encounter - Riya Call - 11/21/2020 1:59 PM EDT RN, please put in MRI order=Ana Lilia Pt calling to schedule 1 yr f/u MRI and [facility] appt last seen 06/2019. Please call pt to schedule once order is in. documented in this encounter Plan of Treatment [...] who have questions please contact the health day care assistant that requested your imaging first. ? Narrative 12/15/2020 11:47 AM EDT EXAMINATION: MRI BRAIN WWO CONTRAST (GENERIC) CLINICAL HISTORY: Brain/WOOL HANDLER neoplasm, surveillance Meningioma (D32.9) S/P L pterinal [...] MRI BRAIN WWO CONTRAST (GENERIC) CLINICAL HISTORY: Brain/WOOL HANDLER neoplasm, surveillance Meningioma (D32.9) S/P L pterinal [...] patients who have questions please contactthe health day care assistant that requested your imaging first. Mani Sung MD IMG MRI ORDERABLES documented in this encounter Visit Diagnoses Diagnosis MGM (meningioma) Benign neoplasm of cerebral meninges MGM (meningioma) Benign neoplasm of cerebral meninges documented in this encounter Care Teams Data Analysis Assistant Relationship Specialty Start Date End Date Crystal Howell APRN [address] [place] [address] PCP - General Family Medicine 02/27/17 documented as of this encounter
--- OUTSIDE RECORDS SUMMARY | 2023-12-30 18:42 | XMS_ITS | Encounter Summary ---
Author Organization [facility] [place] [address] Care Team Providers Care Senior Sustainability Advisor Name Role Phone Crystal Howell APRN Primary Care Provider [phone] Encounter Details Date Type Department Care Team (Late st Contact Info) Description 09/06/2017 [place] [address] Merary Sim Social History Tobacco Use Types [...] * Telephone Encounter - Merary Sim - 09/06/2017 11:33 AM EDT Pt called back, rescheduled for 10/15 * Telephone Encounter - Merary Sim - 09/06/2017 10:51 AM EDT [facility]PA out of clinic, appt cancelled and needs to be rescheduled. See if pt would like to still coordinate imaging reschedule MRI otherwise keep MRI scheduled for 10/17 Called and LM for pt to call back documented in this encounter Plan of Treatment Not on file documented as of this encounter Visit Diagnoses Not on filedocumented in this encounter Care Teams Senior Sustainability Advisor Relationship Specialty Start Date End Date Crytsal Howell APRN [address] [place] [address] PCP - General Family Medicine 02/27/17 documented as of this encounter
--- OUTSIDE RECORDS SUMMARY | 2023-12-30 18:42 | XMS_ITS | Encounter Summary ---
Author Organization [facility] Address [facility] [place] [address] Care Team Providers Care Room Designer Name Role Phone Crystal Howell APRN Primary Care Provider [phone] Reason for Visit * Reason Comments Results had MRI today Encounter Details Date Type Department Care Team (Late st Contact Info) Description 07/11/2017 11:30 AM EST Office [place] [address] Mani Sung MD [facility] [place] [address] Meningioma Social History Tobacco Use Types Packs/Day [...] Sign Reading Time Taken Comments Blood Pressure 146/72 07/11/2017 10:49 AM EST Pulse 70 07/11/2017 10:49 AM EST Temperature - - Respiratory Rate - - Oxygen Saturation - - Inhaled Oxygen Concentration - - Weight 72.6 kg (160 lb) 07/11/2017 10:49 AM EST Height 170.2 cm (5' 7) 07/11/2017 10:49 AM EST Body Mass Index 25.06 07/11/2017 10:49 AM EST documented in this encounter Progress Notes * Mani Sung MD - 07/11/2017 11:30 AM EST Neurosurgery Clinic Note Em Dickerson is a 67 y.o. 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 Shestates she has been doing well with no specific complaints. She denies seizure activity, vision changes, and strength changes. Her neurological exam is unremarkable and her wound is well healed. She does note that she can feel the screw heads of the titanium plates, but these are non-tender and appear as expected. She underwent MRI today and this was reviewed in detail with neuroradiology as well as the patient.The MRI does demonstrate a region of dural thickening and contrast material a the left temporal pole at the sphenoid wing in the region of the tumor. However, in comparison to her immediate post-op MRI from March there are several vessels (middle meningeal, etc.) in the region that are enlarged,likely due to the tumor, and the appearance today may reflect that expected post-operative changes as the brain and region have shifted after resection. I cannot, however, completely exclude the possibility that this represents recurrent tumor. While the pathology was a Grade I meningioma, and early recurrence would be unusual, I believe it is best to consider this a possible recurrence and repeat imaging earlier, at 3 months. She indicated understanding and agreement with this plan. Mani Sung MD Total visit time 30 minutes, of which 20 were spent counseling and coordinating care, including reviewing relevant imaging, lab results, and/or medical records. documented in this encounter Plan of Treatment Not on file documented as of this encounter Visit Diagnoses Diagnosis Meningioma Benign neoplasm of cerebral meninges documented in this encounter Care Teams Room Designer Relationship Specialty Start Date End Date Crystal Howell APRN [address] [place] [id number] PCP - General Family Medicine 02/27/17 documented as of this encounter
--- OUTSIDE RECORDS SUMMARY | 2023-12-30 18:42 | XMS_ITS | Encounter Summary ---
Author Organization [facility] [place] [address] Care Team Providers Care Research Neuropsychologist Name Role Phone Crystal Howell APRN Primary Care Provider [phone] Reason for Referral * Diagnostic Test (Routine) - Closed Specialty Diagnoses / Procedures Referred By Haseeb messina Referred To Contact Radiology Diagnoses Meningioma Procedures MRI Brain wwo Contrast (Generic) [facility] [address] [place] [address] [facility] [place] [address] Referral ID Status Reason Start Date Expiration Date V isits Requested Visits Authorized [id number] Closed Specialty Service Requested 10/23/2017 10/23/2018 2 2 Encounter Details Date Type Department Care Team (Late st Contact Info) Description 10/23/2017 Orders [place] [address] Lizeth Ann RN Meningioma Social History Tobacco Use Types Packs/Day [...] Results * MRI Brain wwo Contrast (Generic) (04/10/2018 10:05 AM EST) Anatomical Region Laterality Modality Head Magnetic Resonan ce Impressions 04/10/2018 3:01 PM EST Stable postoperative changes within the left middle cranial fossa with unchanged. Stable nodular ??enhancement overlying the anterior margin resection cavity. Attention to this area on follow-up recommended. New right maxillary sinus disease I have personally reviewed the image(s) and the residents interpretation and agree with the findings, Elvin Snow MD at 04/10/2018 3:01 PM Narrative 04/10/2018 3:01 PM EST EXAMINATION: MRI BRAIN WWO CONTRAST (GENERIC) CLINICAL HISTORY: f/u s/p left pterional craniotomy for Meningioma resection TECHNIQUE: MRI of the brain was performed before and after the administration of 14 cc of Dotarem intravenous contrast. COMPARISON: Multiple previous brain MRIs, most recent 10/15/2017. FINDINGS: Postsurgical changes consistent with left pterional craniotomy. Dural based enhancement within the resection cavity is similar dating back to 03/12/2017. No new areas of enhancement. Unchanged encephalomalacia within the anterior left temporal lobe. ??No new intracranial mass or abnormal enhancement. Similar scattered subcortical and periventricular foci of white matter T2 signal alteration. Ventricles are unchanged in size and configuration. Major intracranial vascular flow voids are normal. Mild mucosal thickening within the ethmoid air cells and new diffuse nodular mucosal thickening within the right maxillary sinuses. Intraorbital contents are normal. Procedure Note Elvin Calderon MD - 04/10/2018 EXAMINATION: MRI BRAIN WWO CONTRAST (GENERIC) CLINICAL HISTORY: f/u s/p left pterional craniotomy for Meningiomaresection TECHNIQUE: MRI of the brain was performed before and after theadministration of 14 cc of Dotarem intravenous contrast. COMPARISON: Multiple previous brain MRIs, most recent 10/15/2017. FINDINGS: Postsurgical changes consistent with left pterional craniotomy. Duralbased enhancement within the resection cavity is similar dating back to03/12/2017. No new areas of enhancement. Unchanged encephalomalacia within the anteriorleft temporal lobe. No new intracranial mass or abnormal enhancement.Similar scattered subcortical and periventricular foci of white matter T2 signal alteration. Ventricles are unchanged in size and configuration. Major intracranial vascular flow voids are normal. Mild mucosalthickening within the ethmoid air cells and new diffuse nodular mucosal thickeningwithin the right maxillary sinuses. Intraorbital contents are normal. IMPRESSION Stable postoperative changes within the left middle cranial fossa with unchanged. Stable nodular enhancement overlying the anterior marginresection cavity. Attention to this area on follow-up recommended. New right maxillary sinus disease I have personally reviewed the image(s) and the residents interpretationand agree with the findings, Elvin Snow MD at 04/10/2018 3:01 PM 3:01 PM Mani Sung MD IMG MRI ORDERABLES documented in this encounter Visit Diagnoses Diagnosis Meningioma Benign neoplasm of cerebral meninges Meningioma Benign neoplasm of cerebral meninges documented in this encounter Care Teams Research Neuropsychologist Relationship Specialty Start Date End Date Crystal Howell APRN [address] [place] [address] PCP - General Family Medicine 02/27/17 documented as of this encounter
--- OUTSIDE RECORDS SUMMARY | 2023-12-30 18:42 | XMS_ITS | Encounter Summary ---
Author Organization [facility] Address [facility] [place] [address] Care Team Providers Care Undergraduate Intern Name Role Phone Crystal Howell APRN Primary Care Provider [phone] Reason for Visit * Auth/Cert Specialty Diagnoses [...] Expiration Date Visits Re quested Visits Authorized [id number] 1 1 Encounter Details Date Type Department Care Team (Latest Contact Info) Description 03/11/2017 10:20 AM EST - 03/13/2017 12:53 PM [facility] Hospital Encounter [address] [place] [id number] Mani Sung MD [facility] [place] [address] Discharge Disposition: Home Social History Tobacco Use [...] Sign Reading Time Taken Comments Blood Pressure 153/78 03/13/2017 8:00 AM EST Pulse 80 03/13/2017 8:00 AM EST Temperature 36.5 ??C (97.7 ??F) 03/13/2017 8:00 AM ES T Respiratory Rate 18 03/13/2017 8:00 AM EST Oxygen Saturation 100% 03/13/2017 8:00 AM EST Inhaled Oxygen Concentration - - [...] anticoagulant, and non-steroidal anti-inflammatory (NSAIDs) drugs. Common tfnn-vxy-rulajti medications which should be avoided include Aspirin, [...] to pass. These medications can be obtained wuot-wkv-qaadvui and their use is recommended on an [...] weeks. Please call the Neurosurgery Office at [phone] if you do not receive a scheduled [...] anticoagulant, and non-steroidal anti-inflammatory (NSAIDs) drugs. Common tkky-fpb-oqmyack medications which should be avoided include Aspirin, [...] to pass. These medications can be obtained dgzf-hfp-fgsttiw and their use is recommended on an [...] weeks. Please call the Neurosurgery Office at [phone] if you do not receive a scheduled [...] left facility, ambulatory, accompanied by . * Ashish Gould - 03/13/2017 10:24 AM EST Nutrition Services [...] hospital course unless consulted in the interim. TAHIR Duron * Ashtyn Nikole A, SAJAN - 03/13/2017 4:11 AM EST Neurosurgery - [...] EOMI. -No facial asymmetry -Tongue midline -Motor: RUE:5/5 LUE:5/5 RLE: 5/5 LLE: 5/5 -No pronator drift -Sensation intact to LT [...] 12:23 PM EST Linda Dickerson arrived [facility] room 518B @ 0945 from the ICU. Oriented to room, call cancino within reach, educated on importance of using prior to getting OOB, AVSS, , incision WDL, belongings updated in eDH, bed locked in low position, purposeful hourly rounding, bed/chair alarm on. Report from MARIANNA Prieto. * Shari Gupta - 03/12/2017 7:23 AM EST NEUROSURGERY PROGRESS NOTE Linda Dickerson [id number] ID: [id number] y.o. woman s/p pterional [...] Dressings dry and intact LABS: Recent Labs 03/12/1734 WBC 12.1* HGB 11.4* PLATELET 216 Recent Labs 03/12/1734 NA 142 K 3.1* CL 107 CO2 [...] SCDs. 6. ID: Cefazolin loreto-op 7. : DC luis 8. FEK: IVF until good PO. Monitor lytes. PLEASE PAGE [phone] WITH QUESTIONS NEUROLOGIC: brain compression GI: malnutrition [...] DIAGNOSTIC performed by Kirsten Singleton MD at [facility] Prior To Admission Medications: Prescriptions Prior to Admission Medication Sig Dispense Refill Last Dose ??? HERBAL DRUGS ORAL Take 2 tablets by mouth nightly as needed. [facility] SLEEP A[facility] 03/07/2017 at Unknown time Allergies: [...] & miralax -Nausea: reglan, zofran PRN : Forte in place, continue to monitor UOP Endo: [...] 03/11/2017 12:04 PM EST 24-HOUR UPDATE Linda Dickerson was seen in SDP. No interval [...] estate. enjoys playing tennis and going to [place] weekly. Assessment: Pt has been seen by [...] Anticipated Discharge Disposition: home with assist Pager: [phone] MONROE PHAM OT 03/13/2017 Occupational Therapy Rehabilitation [...] Mobility Guidelines: Independent Discharge Recommendations: Home Pager: [phone] Snehal Condon DPT, NCS 03/13/2017 Physical Therapy [...] EVALUATION NOTE: OUTCOME SUMMARY: Pt A&O x4, XAVIER, strengths are 5/5. Pt ambulated with SBA with slightly unsteady gait. 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 Pt c/o pain around incision [...] as documented. * Initial Assessments - Anthony Euceda, MARIANNA - 03/12/2017 3:00 PM EST Office of Care Management Initial Assessment Anthony Euceda, RN reviewed record and discussed patient with [...] that they may express their concerns. This commercial loan underwriter did assure them that their concerns were [...] Specific Information: none Health/Prescription Coverage: Primary Insurance: [facility] MANAGED MEDICARE Secondary Insurance: N/A Prescription Coverage: as above. Preferred Pharmacy: [facility] Other: n/a Primary Care Provider: Crystal Howell, LOCKSTITCH FRONT MAKER [phone] Patient/Caregiver Goals of Treatment: pt is eager [...] of care planning. Anthony Euceda RN Pager: [phone] * Plan of Care - Jordan Lopez [...] Outcome: Ongoing (Interventions Implemented as Appropriate) 03/12/17638 Pain, Acute Related Risk Factors (Acute Pain) [...] Sung MD - 03/11/2017 7:31 PM EST [facility] Operative Note Patient Name: Linda Dickerson : [id number] MR#: [id number] Case Date: 03/11/2017 Surgeon: Surgeon(s) and Role: [...] Time SPECIMEN TO PATHOLOGY (SURGICAL OR DERM) [facility] [phone] YES, Please perform frozen section Meningioma Left [...] her head was placed in a Temple hogshead hooper and turned to the right, exposing the left frontaltemporal region. We then registered the [employer] stereotactic navigation system. We markedthe location of the tumor in the left sphenoid wing region, and marked a C-shaped pterional incision to create a skin flap leaving a margin around the tumor. Hair in this region was then clipped. Heroperative site was then marked off with thousand drapes. We then prepped and draped in the usual sterile fashion. We performed a [facility] mandated hard stop timeout confirming the [...] the location of the tumor using the [employer] Stealth navigation system. Bur holes were then placed using a feed mill supervisor bit attached to the [employer] electric drill posteriorly beyond the most lateral extent of the tumor, just above the root of zygoma, and frontally along the superior temporal line. We then removed any bony remnants using a curette. We then use a Cobalt 3 instrument to strip the dura from [...] The patient was then removed from the Temple hogshead hooper. 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 Scanning Provider MEDIA MGR SCAN EXT O RDR/RSLT * (ABNORMAL) Differential, Automated (03/13/2017 5:38 AM EST) Neutrophil % 85.8 % [facility] Neutrophil Absolute 12.95(H) 1.70 - 6.10 x10(3)/mc L [facility] Lymph % 5.6 % [facility] Lymphocytes Abs 0.8(L) 0.9 - 3.2 x10(3)/mc L [facility] Monocyte % 7.2 % [facility] Monocyte Abs 1.1(H) 0.3 - 0.9 x10(3)/mc L [facility] Eos % 0.0 % [facility] Eosinophils Abs 0.0 0.0 - 0.4 x10(3)/[facility] Basophil % 0.1 % [facility] Baso Absolute 0.0 0.0 - 0.1 x10(3)/mc L [facility] Immature Gran % 1.30 % [facility] Comment: Immature granulocytes(IG's)percentage and absolute count will include metamyelocytes, myelocytes, and promyelocytes. Blood smears from CBCs yielding IG's will be scanned manually for concordance. If this scan disagrees with the automated IG or if promyelocytes are noted, a manual differential will be performed. Immature Gran Absolute 0.19(H) 0.00 - 0.04 x10(3)/mc L [facility] Blood specimen (specimen) 03/13/2017 5:38 AM EST 03/13/2017 5:54 AM EST Narrative Resulting Agency Comment Spec In Lab Angel Morse APRN HEMATOLOGY ORDERABLE S [facility] [place] [address] * (ABNORMAL) Hemogram (03/13/2017 5:38 AM EST) White Blood Cell 15.1(H) 4.0 - 9.5 x10(3)/mc L [facility] Red Blood Cell 3.89(L) 4.00 - 5.21 x10(6)/mc L [facility] Hemoglobin 11.5(L) 11.7 - 15.5 gm/dL [facility] Hematocrit 32.9(L) 35.7 - 45.8 % [facility] Mean Cell Volume 84.6 82.6 - 94.[address] [facility] Mean Cell Hemoglobin 29.6 27.1 - 32.[address] [facility] Mean Cell Hemoglobin Concentration 35.0 31.7 - 35.0 gm/dL [facility] Platelet 222 145 - 357 x10(3)/[facility] RDW Standard Deviation 39.8 37.0 - 46.0 [facility] RDW coefficient of variation 13.1 11.5 - 14.1 % [facility] Mean Platelet Volume 9.6 7.6 - 12.[address] [facility] NRBC% auto 0.0 % [facility] NRBC Absolute 0.000 0.000 - 0.000 x10(3)/[facility] Blood specimen (specimen) 03/13/2017 5:38 AM EST 03/13/2017 5:54 AM EST Narrative Resulting Agency Comment Spec In Lab Angel Morse APRN HEMATOLOGY ORDERABLE S [facility] [place] [address] * (ABNORMAL) Basic Metabolic Panel (non-fasting) (03/13/2017 5:38 AM EST) Glucose 138 65 - 199 mg/dL [facility] Comment:Diabetes: >=200 mg/d L plus symptoms Blood Urea Nitrogen 9 8 - 18 mg/dL [facility] Creatinine 0.59(L) 0.70 - 1.20 mg/dL [facility] Sodium 139 135 - 145 mmol/L [facility] Potassium 4.3 3.5 - 5.0 mmol/L [facility] Comment: result rechecked-pmh Please note: ??Patients with WBC >100,000 may have falsely elevated Potassium levels. ??For accurate Potassium quantification in these patients send serum separator tube (gold top) for subsequent determinations. ??Contact the Clinical Chemistry Laboratory if there are any questions. Chloride 103 98 - 107 mmol/L [facility] Carbon Dioxide 26 22 - 31 mmol/L [facility] Anion Gap 10 5 - 15 mmol/L [facility] Calcium 9.3 8.5 - 10.5 mg/dL [facility] Comment:result rechecked-pmh Est Glomerular Filtration Rate >60 >=60 [facility] Comment: The reported eGFR should be multiplied by 1.2 for patients. The MDRD is not an appropriate measure of renal function for patients with body mass extremes or in patients with acute kidney failure. http://[employer]/DHnkdep http://[employer]/DHMCnkf Blood specimen (specimen) 03/13/2017 5:38 AM EST 03/13/2017 5:54 AM EST Narrative Resulting Agency Comment Spec In Lab Angel Morse APRN CHEMISTRY ORDERABLES [facility] [place] [address] * MRI Brain wwo Contrast (Generic) (03/12/2017 [...] EST) Phosphorus 3.5 2.5 - 4.5 mg/dL [facility] Blood specimen (specimen) Venous Draw / Unknown 03/12/2017 12:35 AM EST 03/12/2017 12:42 AM EST Narrative Resulting Agency Comment Spec In Lab Mani Sung MD CHEMISTRY ORDERABLES Performing Organization Address [facility] Co de Phone Number [facility] [place] [address] * Magnesium (03/12/2017 12:35 AM EST) Magnesium 0.70 0.69 - 1.07 mmol/L [facility] Blood specimen (specimen) Venous Draw / Unknown 03/12/2017 12:35 AM EST 03/12/2017 12:42 AM EST Narrative Resulting Agency Comment Spec In Lab Mani Sung MD CHEMISTRY ORDERABLES Performing Organization Address City/[facility]/ZIP Co de Phone Number [facility] [place] [address] * (ABNORMAL) Differential, Automated (03/12/2017 12:35 AM EST) Neutrophil % 89.5 % [facility] Neutrophil Absolute 10.80(H) 1.70 - 6.10 x10(3)/mc L [facility] Lymph % 6.7 % [facility] Lymphocytes Abs 0.8(L) 0.9 - 3.2 x10(3)/ L [facility] Monocyte % 3.2 % [facility] Monocyte Abs 0.4 0.3 - 0.9 x10(3)/[facility] Eos % 0.0 % [facility] Eosinophils Abs 0.0 0.0 - 0.4 x10(3)/[facility] Basophil % 0.2 % [facility] Baso Absolute 0.0 0.0 - 0.1 x10(3)/[facility] Immature Gran % 0.40 % [facility] Comment: Immature granulocytes(IG's)percentage and absolute count will include metamyelocytes, myelocytes, and promyelocytes. Blood smears from CBCs yielding IG's will be scanned manually for concordance. If this scan disagrees with the automated IG or if promyelocytes are noted, a manual differential will be performed. Immature Gran Absolute 0.05(H) 0.00 - 0.04 x10(3)/ L [facility] Blood specimen (specimen) 03/12/2017 12:35 AM EST 03/12/2017 12:41 AM EST Narrative Resulting Agency Comment Spec In Lab Mani Sung MD HEMATOLOGY ORDERABLE S [facility] [place] [address] * (ABNORMAL) Hemogram (03/12/2017 12:35 AM EST) White Blood Cell 12.1(H) 4.0 - 9.5 x10(3)/[facility] Red Blood Cell 3.97(L) 4.00 - 5.21 x10(6)/ L [facility] Hemoglobin 11.4(L) 11.7 - 15.5 gm/dL [facility] Hematocrit 33.8(L) 35.7 - 45.8 % [facility] Mean Cell Volume 85.1 82.6 - 94.[address] [facility] Mean Cell Hemoglobin 28.7 27.1 - 32.[address] [facility] Mean Cell Hemoglobin Concentration 33.7 31.7 - 35.0 gm/dL [facility] Platelet 216 145 - 357 x10(3)/[facility] RDW Standard Deviation 39.7 37.0 - 46.[address] [facility] RDW coefficient of variation 12.7 11.5 - 14.1 % [facility] Mean Platelet Volume 9.2 7.6 - 12.[address] [facility] NRBC% auto 0.0 % [facility] NRBC Absolute 0.000 0.000 - 0.000 x10(3)/[facility] Blood specimen (specimen) 03/12/2017 12:35 AM EST 03/12/2017 12:41 AM EST Narrative Resulting Agency Comment Spec In Lab Mani Sung MD HEMATOLOGY ORDERABLE S [facility] [place] [address] * (ABNORMAL) Basic Metabolic Panel (non-fasting) (03/12/2017 12:35 AM EST) Glucose 163 65 - 199 mg/dL [facility] Comment:Diabetes: >=200 mg/d L plus symptoms Blood Urea Nitrogen 14 8 - 18 mg/dL [facility] Creatinine 0.59(L) 0.70 - 1.20 mg/dL [facility] Sodium 142 135 - 145 mmol/L [facility] Potassium 3.1(L) 3.5 - 5.0 mmol/L [facility] Comment: result rechecked-douglas Please note: ??Patients with WBC >100,000 may have falsely elevated Potassium levels. ??For accurate Potassium quantification in these patients send serum separator tube (gold top) for subsequent determinations. ??Contact the Clinical Chemistry Laboratory if there are any questions. Chloride 107 98 - 107 mmol/L [facility] Carbon Dioxide 20(L) 22 - 31 mmol/L [facility] Anion Gap 15 5 - 15 mmol/L [facility] Calcium 8.1(L) 8.5 - 10.5 mg/dL [facility] Est Glomerular Filtration Rate >60 >=60 [facility] Comment: The reported eGFR should be multiplied by 1.2 for patients. The MDRD is not an appropriate measure of renal function for patients with body mass extremes or in patients with acute kidney failure. http://[employer]/DHnkdep http://[employer]/DHMCnkf Blood specimen (specimen) 03/12/2017 12:35 AM EST 03/12/2017 12:41 AM EST Narrative Resulting Agency Comment Spec In Lab Angel Morse APRN CHEMISTRY ORDERABLES Performing Organization Address [facility]/ZIP Co de Phone Number [facility] [place] [address] * Specimen to Pathology (surgical or derm) (03/11/2017 4:52 PM EST) AP Specimen 03/11/2017 4:52 PM EST 03/11/2017 4:[address] [facility] - 03/11/2017 4:52 PM EST Specimen requisition ordered. ??Separate Pathology report to follow Mani Sung MD PATHOLOGY/CYTOLOGY O RDERAERIKA Performing Organization Address City/[facility]/ZIP Co de Phone Number [facility] [place] [address] * Specimen to Pathology (surgical or derm) (03/11/2017 3:22 PM EST) AP Specimen 03/11/2017 3:22 PM EST 03/11/2017 3:[address] [facility] - 03/11/2017 3:22 PM EST Specimen requisition ordered. ??Separate Pathology report to follow Mani Sung MD PATHOLOGY/CYTOLOGY O PARTHA [facility] [place] [address] * Surgical Pathology Report (03/11/2017 3:21 PM EST) Final Diagnosis [id number] ? Location: [facility]; [facility]; The signing pathologist has (i) examined the relevant preparation(s) for the specimen(s) and (ii) rendered or confirmed the diagnosis(es). . ?Surgical Pathology DIAGNOSIS SECRETORY MENINGIOMA, grade I Electronically signed by: ??Jorge Luis Cervantes MD Verified: ??03/18/2017 ?Pathologist Performed at: ??-[facility] Dept. of Pathology, [place], [place] DISCUSSION The lesion excised from the [...] Block ??Antibody Result (Positive/Negative) B1 ??GFAP No PUBLIC AFFAIRS MANAGER parenchyma is present. B1 ??KI67 Nuclear positivity [...] segment of vazquez-pink fibrous tissue. Sections/Processing: (1) representative personal service section of dark brown-black friable tissue; (2) representative personal service section of vazquez-pink fibrous tissue (T2) ??sm ?Frozen Section FROZEN SECTION DIAGNOSIS A - Left sphenoid wing, smear and frozen section: ??Meningioma 03/11/17 15:52 Electronically signed by: ??Jessy Daly MD Verified: ??03/11/2017 ?Pathologist Performed at: ??-[facility] Dept. of Pathology, [place], [place] This intraoperative consultation should be interpreted as a preliminary diagnosis pending review of the entire specimen and special studies, if any. 03/18/2017 2:[address] [facility] BRAIN STRUCTURE / Unknown 03/11/2017 3:21 PM EST 03/11/2017 3:21 PM EST BRAIN STRUCTURE / Unknown 03/11/2017 3:21 PM EST 03/11/2017 3:21 PM EST Mani Sung MD PATHOLOGY/CYTOLOGY O [facility]THA [facility] [place] [address] * CT Head wo Contrast (Generic) (03/11/2017 [...] RDR/RSLT documented in this encounter Visit Diagnoses Diagnosis Meningioma Benign neoplasm of cerebral meninges documented in this encounter Administered Medications Inactive Administered Medications - up to 3 most recent administrations Medication Order MAR Action Action Date Dose Rate Site acetaminophen (OFIRMEV) injection 1,000 mg 1,000 mg, Intravenous, at 400 mL/hr, Administer over 15 Minutes, ONCE, 1 dose, On Sat03/11/17 at 2030, Maximum dose of acetaminophen is 4000 mg from all sources in 24 hours., Routine, Is ketorolac (Toradol) IV contraindicated? Yes, Can this patient tolerate oral medications or suppositories? No Given 03/11/2017 9:05 PM EST 1,000 mg 400 mL/hr acetaminophen (TYLENOL) suppository 975 mg 975 mg, [...] Given 03/12/2017 9:20 PM EST 1,000 mg dexamethasone (DECADRON) injection 4 mg 4 mg, [...] Given 03/13/2017 12:13 AM EST 4 mg diaZEPam (VALIUM) tablet 5 mg 5 mg, Oral, ONCE PRN, 1 dose, Starting on Sat03/12/17 at 1027, Until Sat03/12/17 at 1148, Anxiety, Prior to MRI, Routine Given 03/12/2017 11:48 AM EST 5 mg famotidine (PEPCID) injection 20 mg 20 [...] Given 03/12/2017 8:51 AM EST 20 mg gadobutrol (GADAVIST) 1 mMol/mL injection 7 mL 7 mL, Intravenous, ONCE PRN, 1 dose, Starting on Sat03/12/17 at 1320, Until Sat03/12/17 at 1320, Per Protocol, Routine Given 03/12/2017 1:20 PM EST 7 mLs hydrALAZINE (APRESOLINE) injection 10 mg 10 mg, [...] 8:16 PM EST 10 mg levETIRAcetam (KEPPRA) 500 mg in sodium chloride 0.82% 100 mL 500 mg, Intravenous, at 400 mL/hr, 2 TIMES DAILY, First dose on Sat03/11/17 at 2100, Until Discontinued, Routine New Bag 03/11/2017 10:20 PM EST 500 mg 400 mL/h r levETIRAcetam (KEPPRA) tablet 500 mg 500 mg, Oral, 2 TIMES DAILY, First dose on Sat03/11/17 at 2100, Until Discontinued, Routine Given 03/13/2017 9:24 AM EST 500 mg Given 03/12/2017 8:05 PM EST 500 mg Given 03/12/2017 8:51 AM EST 500 mg magnesium sulfate 2 g in sterile water 50 mL 2 g, Intravenous, ONCE, 1 dose, On Sat03/12/17 at 0245, Administer over 120 Minutes New Bag 03/12/2017 3:00 AM EST 2 g 25 mL/hr ondansetron (ZOFRAN) injection 4 mg 4 mg, [...] Routine potassium chloride (K-DUR/KLOR-CON) extended release tablet 60 mEq 60 mEq, Oral, ONCE, 1 dose, On Sat03/12/17 at 0200, Routine Given 03/12/2017 1:57 AM EST 60 mEq senna-docusate (PERICOLACE) 8.6-50 mg per tablet 2 tablet 2 tablet, Oral, 2 TIMES DAILY, First dose on Sat03/11/17 at 2100, Until Discontinued, Routine Given 03/13/2017 9:24 AM EST 2 tablets Given 03/12/2017 8:04 PM EST 2 tablets Given 03/12/2017 8:51 AM EST 2 tablets sodium chloride 0.9 % flush 5 mL 5 mL, Intravenous, 2 TIMES DAILY, First dose on Sat03/11/17 at 2100, Until Discontinued, Recovery (Recovery-Hospital Unit), Routine Given 03/11/2017 9:00 PM EST 5 mLs sodium chloride 0.9% infusion 75 mL/hr, Intravenous, CONTINUOUS, Starting on Sat03/11/17 at 1930, Until Sat03/12/17 at 0749, Recovery (Recovery-Hospital Unit) New Bag 03/11/2017 7:15 PM EST 75 mL/hr 75 mL/ hr vancomycin 1 g in 0.9 % sodium chloride 200 mL 1,000 mg, Intravenous, at 200 mL/hr, EVERY [...] scheduled level. Warning Vesicant/Irritant Medication , Routine New Bag 03/12/2017 10:00 AM EST 1,000 mg 200 mL/hr New Bag 03/11/2017 10:23 PM EST 1,000 mg 200 mL/hr documented in this encounter Active and Recently [...] patient tolerate oral medications or suppositories? No 2585 (Given - Provider: Jordan Lopez RN) dexamethasone [...] RN)1151 (See Alternative - Provider: April Ignacio, RN) dexamethasone (DECADRON) tablet 4 mg(Linked Group 1) [...] Stout RN)0551 (Given - Provider: Denis Stout RN)115 (Given - Provider: April Ignacio, MARIANNA) famotidine (PEPCID) injection 20 mg(Linked Group 2) 20 mg, Intravenous, 2 TIMES DAILY, First dose on Sat03/11/17 at 2100, Until Discontinued, Routine 2219 (Given - Provider: Roxann Brice RN) 08 (See Alternative - Provider: Conner Daniel RN)2004 (See Alternative - Provider: Denis Stout RN) 923 (See Alternative - Provider: April Ignacio, MARIANNA) famotidine (PEPCID) tablet 20 mg(Linked Group 2) 20 mg, Oral, 2 TIMES DAILY, First dose on Sat03/11/17 at 2100, Until Discontinued, If unable to take PO, may give IV, Routine 2219 (See Alternative - Provider: Roxann Brice, MARIANNA) 08 (Given - Provider: Conner Daniel RN)2004 (Given - Provider: Denis Stout RN) 923 (Given - Provider: April Ignacio, MARIANNA) levETIRAcetam (KEPPRA) 500 mg in sodium chloride 0.82% 100 mL (CANCELED)(Linked Group 3) 500 mg, Intravenous, at 400 mL/hr, 2 TIMES DAILY, First dose on Sat03/11/17 at 2100, Until Discontinued, Routine 2220 (New Bag - Provider: Roxann Brice RN)223 (Stopped - Provider: Roxann Brice RN) 0851 [...] RN) 923 (Given - Provider: April Ignacio, MARIANNA) magnesium sulfate 2 g in sterile water 50 mL (COMPLETED) 2 g, Intravenous, ONCE, 1 dose, On Sat03/12/17 at 0245, Administer over 120 Minutes 0300 (New Bag - Provider: Jordan Lopez RN)0500 (Stopped - Provider: Jordan Lopez, MARIANNA) potassium chloride (K-DUR/KLOR-CON) extended release tablet 60 mEq (COMPLETED) 60 mEq, Oral, ONCE, 1 dose, On Sat03/12/17 at 0200, Routine 0157 (Given - Provider: Jordan Lopez, MARIANNA) senna-docusate (PERICOLACE) 8.6-50 mg per tablet 2 tablet 2 tablet, Oral, 2 TIMES DAILY, First dose on Sat03/11/17 at 2100, Until Discontinued, Routine 2100 (Hold - Provider: Roxann Brice RN - Reason: Order parameters not met) 0851 (Given - Provider: Conner Daniel RN)2003 (Given - Provider: Denis Stout RN) 923 (Given - Provider: April Ignacio RN) sodium chloride 0.9 % flush 5 mL (CANCELED) 5 mL, Intravenous, 2 TIMES DAILY, First dose on Sat03/11/17 at 2100, Until Discontinued, Recovery (Recovery-Hospital Unit), Routine 2100 (Given - Provider: Roxann Brice RN) vancomycin [...] RN)1515 (See Alternative - Provider: Kristen Emmanuel, MARIANNA)212 (See Alternative - Provider: Denis Stout RN) 0405 (See Alternative - Provider: Denis Stout RN)0927 (See Alternative - Provider: April Ignacio, MARIANNA) acetaminophen (TYLENOL) tablet 1,000 mg(Linked Group 4) 1,000 mg, Oral, EVERY 6 HOURS PRN, Starting on Sat03/11/17 at 2114, Until Sat03/13/17 at 1453, Pain, Maximum dose of acetaminophen is 4000 mg from all sources in 24 hours., Routine 0209 (Given - Provider: Jordan Lopez RN)0850 (Given - Provider: Conner Daniel, MARIANNA)1515 (Given - Provider: Kristen Emmanuel RN)2120 (Given - Provider: Denis Stout RN) 0405 (Given - Provider: Denis Stout RN)0927 (Given - Provider: April Ignacio, MARIANNA) bacitracin injection (CANCELED) ONCE PRN, Starting on Sat03/11/17 at 1735, Until Sat03/13/17 at 1453, Intra-Operative (Intra-Procedure), Routine 1735 (Given - Provider: Mani Sung MD - Comment: 52888 units in a liter LR after dura [...] Routine 1148 (Given - Provider: Faustina Sewell, RN) gadobutrol (GADAVIST) 1 mMol/mL injection 7 mL [...] hour., Routine 2015 (Given - Provider: Jordan Lopez, MARIANNA) labetalol (NORMODYNE,TRANDATE) injection 10-20 mg 10-20 mg, [...] ineffective 2004 (Given - Provider: Jordan Lopez, MARIANNA) ondansetron (ZOFRAN) tablet 4 mg(Linked Group 5) [...] 2004 (See Alternative - Provider: Jordan Lopez, MARIANNA) oxyCODONE (ROXICODONE) immediate release tablet 10 mg(Linked [...] Lopez RN)1614 (See Alternative - Provider: Faustina Sewell RN)2010 (See Alternative - Provider: Denis Stout RN) [...] Jordan Lopez RN)1614 (Given - Provider: Faustina Sewell, MARIANNA)2010 (Given - Provider: Denis Stout RN) [...] Routine documented in this encounter Care Teams Undergraduate Intern Relationship Specialty Start Date End Date Crystal Howell, LOCKSTITCH FRONT MAKER [address] [place] [address] PCP - General Family Medicine 02/27/17 documented as of this encounter
--- OUTSIDE RECORDS SUMMARY | 2023-12-30 18:42 | XMS_ITS | Encounter Summary ---
Author Organization [facility] Address [facility] [place] [address] Care Team Providers Care Natural Resources Professor Name Role Phone Crystal Howell APRN Primary Care Provider [phone] Reason for Referral * Diagnostic Test (Routine) - Closed Specialty Diagnoses / Procedures Referred By Contac t Referred To Contact Radiology Diagnoses Meningioma Procedures MRI Brain wwo Contrast (Generic) Mani Sung MD [facility] [place] [address] [place] [address] Referral ID Status Reason Start Date Expiration Date V isits Requested Visits Authorized [id number] Closed Specialty Service Requested 05/12/2019 11/09/2020 1 1 Reason for Visit * Diagnostic Test (Routine) - Closed Specialty Diagnoses / Procedures Referred By Contac t Referred To Contact Radiology Diagnoses Meningioma Procedures MRI Brain wwo Contrast (Generic) Mani Sung MD [facility] [place] [address] [place] [address] Referral ID Status Reason Start Date Expiration Date V isits Requested Visits Authorized [id number] Closed Specialty Service Requested 05/12/2019 11/09/2020 1 1 Encounter Details Date Type Department Care Team (Latest Contact Info) Description 06/11/2019 12:07 PM EST - 06/11/2019 12:08 PM EST Hospital Encounter MRI at [facility] [place] [address] Mani Sung MD [facility] [place] [address] Meningioma Discharge Disposition: Home Social History Tobacco [...] as of this encounter Progress Notes * Lisa Dorsey RN - 06/08/2019 10:03 AM EST MRI PRE-SEDATION ASSESSMENT NOTE NAME: Em Dickerson AGE: 69 y.o. : [address] [place] [address] Female [phone] (home) Telephone Information: Crystal Howell APRN No primary care provider on file. Allergies Allergen Reactions ??? Iodine And Iodide Containing Products Anaphylaxis ??? Penicillins Hives ??? Nitrofurantoin Other (See Comments) Stomach upset Date/Time of call: June 08, 2019/10:03 AM/ PREVIOUS MRI SCAN? Yes SCHEDULED SCAN: MRI BRAIN WWO CONTRAST (GENERIC) [[id number]], 60 minutes, scanner 6 SUBJECTIVE: Claustrophobia CAN YOU LAY FLAT? yes AIRWAY ISSUES? no DO YOU HAVE ANY INVOLUNTARY MOVEMENTS? none DO YOU HAVE ANY PAIN? no DO YOU TAKE PAIN MED ON A DAILY BASIS? n/a ASSESSMENT: Appropriate for po sedation PLAN: Valium 2-4 mg po ( AA) You must have a otr truck driver present when you check in. This patient has been informed that they require a otr truck driver to drive them home after this procedure. In the absence of a otr truck driver, IR will not be able to sedate for your scan. Pt verbalized understanding of these instructions during the pre-procedure education via phone. Yes Name of otr truck driver: Willam Allison Phone number PRIOR SCAN DATE/S ? SEDATION TYPE ?SUCCESSFUL ?? 07/11/17 MRI Brain Valium 5 MG PO Yes 10/15/17 MRI Brain Valium 5 MG PO Yes 04/10/18 MRI Brain Valium 5 mg po Passed 06/11/19 MRI brain w/wo contrast Valium 4 mg total po Tolerated well. ? Revised 10/01/17 documented in this encounter Plan of Treatment Not on file documented as of this encounter Procedures Procedure Name Priority Date/Time Associated Diagnosis Comments MRI BRAIN WWO CONTRAST (GENERIC) Routine 06/11/2019 2:26 PM EST Meningioma documented in this encounter Results * MRI Brain wwo Contrast (Generic) (06/11/2019 2:26 PM EST) Anatomical Region Laterality Modality Head Magnetic Resonan ce Impressions 06/11/2019 4:07 PM EST 1. ??Stability of the plaque-like extra-axial enhancement about the left greater sphenoid wing at the surgical site. 2. ??Multiple chronic microhemorrhages scattered throughout the cerebral hemispheres on the susceptibility weighted sequence likely related to hypertension or amyloid angiopathy. Thank you for letting us participate in the care of this patient. For questions regarding this report, please contact the number below. ? Narrative 06/11/2019 4:07 PM EST EXAMINATION: MRI BRAIN WWO CONTRAST (GENERIC) CLINICAL HISTORY: Meningioma, monitor f/u s/p left pterional craniotomy for Meningioma resection TECHNIQUE: MRI of the brain was performed before and after the intravenous administration of 14cc Dotarem. COMPARISON: Multiple previous brain MRIs the most recent is 04/10/2018. FINDINGS: Stability of the mildly prominent ventricles. Multiple sites of increased T2 signal within the supratentorial white matter represent mild to moderate small vessel ischemic changes. Left frontal craniotomy defect again noted. The plaque-like extra-axial enhancement overlying the left greater sphenoid wing is similar compared to prior study. Adjacent left anterior temporal horn encephalomalacia/gliosis is stable. No other sites of abnormal enhancement. No diffusion-weighted abnormalities. Intracranial midline structures are normal. Multiple foci of chronic microhemorrhages present throughout both cerebral hemispheres with sparing basal ganglia on the susceptibility weighted sequence.. Paranasal sinuses mastoid air cells are clear. Procedure Note Jackson Anderson MD - 06/11/2019 EXAMINATION: MRI BRAIN WWO CONTRAST (GENERIC) CLINICAL HISTORY: Meningioma, monitor f/u s/p left pterional craniotomy for Meningioma resection TECHNIQUE: MRI of the brain was performed before and after the intravenousadministration of 14cc Dotarem. COMPARISON: Multiple previous brain MRIs the most recent is 04/10/2018. FINDINGS: Stability of the mildly prominent ventricles. Multiple sites of increasedT2 signal within the supratentorial white matter represent mild to moderatesmall vessel ischemic changes. Left frontal craniotomy defect again noted. The plaque-like extra-axial enhancement overlying the left greater sphenoidwing is similar compared to prior study. Adjacent left anterior temporal horn encephalomalacia/gliosis is stable. No other sites of abnormal enhancement. No diffusion-weightedabnormalities. Intracranial midline structures are normal. Multiple foci of chronic microhemorrhages present throughout both cerebral hemispheres with sparingbasal ganglia on the susceptibility weighted sequence.. Paranasal sinusesmastoid air cells are clear. IMPRESSION 1. Stability of the plaque-like extra-axial enhancement about the leftgreater sphenoid wing at the surgical site. 2. Multiple chronic microhemorrhages scattered throughout the cerebral hemispheres on the susceptibility weighted sequence likely related to hypertension or amyloid angiopathy. Thank you for letting us participate in the care of this patient. Forquestions regarding this report, please contact the number below. Mani Sung MD IMG MRI ORDERABLES documented in this encounter Visit Diagnoses Diagnosis Meningioma Benign neoplasm of cerebral meninges documented in this encounter Administered Medications Inactive Administered Medications - up to 3 most recent administrations Medication Order MAR Action Action Date Dose Rate Site diazePAM (Valium) tablet 2 mg 2 mg, Oral, EVERY 30 MIN PRN, 2 doses, Starting on [place] 06/11/19 at 0705, Until [place] 06/11/19 at 1247, Anxiety, Angio/IR (Day of Procedure), Routine Given 06/11/2019 12:47 PM EST 2 mg Given 06/11/2019 12:20 PM EST 2 mg documented in this encounter Care Teams Natural Resources Professor Relationship Specialty Start Date End Date Crystal Howell APRN [address] [place] [address] PCP - General Family Medicine 02/27/17 documented as of this encounter
--- OUTSIDE RECORDS SUMMARY | 2023-12-30 18:42 | XMS_ITS | Encounter Summary ---
Author Organization [facility] [place] [address] Care Team Providers Care Electronics Manufacturer Name Role Phone Crystal Howell APRN Primary Care Provider [phone] Reason for Referral * Diagnostic Test (Routine) - Closed Specialty Diagnoses / Procedures Referred By Haseeb messina Referred To Contact Radiology Diagnoses Meningioma Procedures MRI Brain wwo Contrast (Generic) [facility] [address] [place] [address] [facility] [place] [address] Referral ID Status Reason Start Date Expiration Date V isits Requested Visits Authorized [id number] Closed Specialty Service Requested 08/13/2017 08/13/2018 1 1 Encounter Details Date Type Department Care Team (Late st Contact Info) Description 08/13/2017 [place] [address] Brook Evans RN Meningioma Social History Tobacco Use Types [...] meninges documented in this encounter Care Teams Electronics Manufacturer Relationship Specialty Start Date End Date Crystal Howell APRN [address] [place] [address] PCP - General Family Medicine 02/27/17 documented as of this encounter
--- OUTSIDE RECORDS SUMMARY | 2023-12-30 18:42 | XMS_ITS | Encounter Summary ---
Author Organization [facility] Address [facility] [place] [address] Care Team Providers Care Stage Electrician Helper Name Role Phone Tawanna Kelly APRN Primary Care Provider [phone] Encounter Details Date Type Department Care Team (Late st Contact Info) Description 02/26/2017 Orders [place] [address] Mani Sung MD [facility] [place] [address] Social History Tobacco Use Types Packs/Day Years [...] on filedocumented in this encounter Care Teams Stage Electrician Helper Relationship Specialty Start Date End Date Tawanna Kelly APRN [address] [facility], [place] [id number] PCP - General Family Medicine 07/17/16 02/26/17 documented as of this encounter
--- OUTSIDE RECORDS SUMMARY | 2023-12-30 18:42 | XMS_ITS | Encounter Summary ---
Author Organization [facility] Address [facility] [place] [address] Care Team Providers Care High School Sports Coach Name Role Phone Crystal Howell APRN Primary Care Provider [phone] Reason for Visit * Reason Comments Follow-up s/p left pterional c raniotomy for meningioma resection with MRI prior Encounter Details Date Type Department Care Team (Late st Contact Info) Description 10/15/2017 1:15 PM EDT Office [place] [phone] Mani Sung MD [facility] [place] [address] Meningioma Social History Tobacco Use Types Packs/Day [...] Sign Reading Time Taken Comments Blood Pressure 156/69 10/15/2017 1:06 PM EDT Pulse 85 10/15/2017 1:06 PM EDT Temperature - - Respiratory Rate - - Oxygen Saturation - - Inhaled Oxygen Concentration - - Weight 72.1 kg (159 lb) 10/15/2017 1:06 PM EDT Height 170.2 cm (5' 7) 10/15/2017 1:06 PM EDT Body Mass Index 24.9 10/15/2017 1:06 PM EDT documented in this encounter Progress Notes * Mani Sung MD - 10/15/2017 1:15 PM EDT Neurosurgery Clinic Note Em Dickerson is a 67 y.o. 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 Shewas last seen on 07/11/2017. IN the interval she reports she has been doing well and she has no specific concerns today. Her neurological exam is unremarkable and her wound is well healed. ?? At her last MRI in July, there was concern for contrast enhancement at the left temporal pole. Repeat imaging today again demonstrates a similar pattern without significant change. We again discussed that this may be dural thickening or a vessel, but it is prudent to continue to observe this region for any change. We will plan on another clinic visit and MRI in 6 months, earlier should any new sy mptoms arise.She indicated understanding and agreement with this plan. Mani Sung MD Total visit time 20 minutes, of which 15 were spent counseling and coordinating care, including reviewing relevant imaging, lab results, and/or medical records. documented in this encounter Plan of Treatment Not on file documented as of this encounter Visit Diagnoses Diagnosis Meningioma Benign neoplasm of cerebral meninges documented in this encounter Care Teams High School Sports Coach Relationship Specialty Start Date End Date Crystal Howell, ESL TEACHER [address] [place] [address] PCP - General Family Medicine 02/27/17 documented as of this encounter
--- OUTSIDE RECORDS SUMMARY | 2023-12-30 18:42 | XMS_ITS | Encounter Summary ---
Author Organization [facility] Address [facility] [place] [address] Care Team Providers Care Emu Farm Worker Name Role Phone Crystal Howell APRN Primary Care Provider [phone] Reason for Visit * Diagnostic Test (Routine) - Closed Specialty Diagnoses / Procedures Referred By Haseeb messina Referred To Contact Radiology Diagnoses Meningioma Procedures MRI Brain wwo Contrast (Generic) [facility] [address] [place] [address] [facility] [address] Referral ID Status Reason Start Date Expiration Date V isits Requested Visits Authorized [id number] Closed Specialty Service Requested 10/23/2017 10/23/2018 2 2 Encounter Details Date Type Department Care Team (Latest Contact Info) Description 04/10/2018 7:58 AM EST - 04/10/2018 11:59 PM [facility] Hospital [place] [address] Mani Sung MD [facility] [place] [address] Discharge Disposition: Home Social History [...] Comments MRI BRAIN WWO CONTRAST (GENERIC) Routine 04/10/2018 10:05 AM EST Meningioma documented in this encounter Visit Diagnoses Not on filedocumented in this encounter Administered Medications Inactive Administered Medications - up to 3 most recent administrations Medication Order MAR Action Action Date Dose Rate Site gadoterate meglumine (DOTAREM) 0.5 mmol/mL (376.9 mg/mL) injection 0-100 mL 0-100 mL, Intravenous, ONCE PRN, 1 dose, Starting on [place] 04/10/18 at 1004, Until [place] 04/10/18 at 0939, Per Protocol, Radiology Contrast, Routine Given 04/10/2018 9:39 AM EST 14 mLs documented in this encounter Care Teams Emu Farm Worker Relationship Specialty Start Date End Date Crystal Howell APRN [address] [place] [address] PCP - General Family Medicine 02/27/17 documented as of this encounter
--- OUTSIDE RECORDS SUMMARY | 2023-12-30 18:42 | XMS_ITS | Encounter Summary ---
[place] [address] Care Team Providers Care Category Consultant Name Role Phone Crystal Howell APRN Primary Care Provider [phone] Encounter Details Date Type Department Care Team (Late st Contact Info) Description 03/20/2017 Telephone [place] [phone] Riya Call Social History Tobacco Use Types [...] * Telephone Encounter - Riya Call - 03/20/2017 11:56 AM EST Spoke to patient scheduled f/u and mailing appointment card. documented in this encounter Plan of Treatment Not on file documented as of this encounter Visit Diagnoses Not on filedocumented in this encounter Care Teams Category Consultant Relationship Specialty Start Date End Date Crystal Howell APRN [address] [place] [address] PCP - General Family Medicine 02/27/17 documented as of this encounter
--- OUTSIDE RECORDS SUMMARY | 2023-12-30 18:42 | XMS_ITS | Encounter Summary ---
Author Organization [facility] Address [facility] [place] [address] Care Team Providers Care Ordnance Officer Name Role Phone Crystal Howell APRN Primary Care Provider [phone] Reason for Referral * Diagnostic Test (Routine) - Closed Specialty Diagnoses / Procedures Referred By Contac t Referred To Contact Radiology Diagnoses Meningioma Procedures MRI Brain wwo Contrast (Generic) [facility] [address] [place] [address] [place] [address] Referral ID Status Reason Start Date Expiration Date V isits Requested Visits Authorized [id number] Closed Specialty Service Requested 10/23/2017 10/23/2018 2 2 Reason for Visit * Diagnostic Test (Routine) - Closed Specialty Diagnoses / Procedures Referred By Contac t Referred To Contact Radiology Diagnoses Meningioma Procedures MRI Brain wwo Contrast (Generic) [facility] [address] [place] [address] [place] [address] Referral ID Status Reason Start Date Expiration Date V isits Requested Visits Authorized [id number] Closed Specialty Service Requested 10/23/2017 10/23/2018 2 2 Encounter Details Date Type Department Care Team (Latest Contact Info) Description 04/10/2018 7:55 AM EST - 04/10/2018 7:57 AM EST Hospital Encounter MRI at [facility] [place] [address] Mani Sung MD [facility] [place] [address] Meningioma Discharge Disposition: Home Social History Tobacco [...] as of this encounter Progress Notes * Cindy Marsh RN - 04/07/2018 8:40 AM EST MRI PRE-SEDATION ASSESSMENT NOTE NAME: Em Dickerson AGE: 67 y.o. : 1950 [address] [facility] [address] Female [phone] (home) Telephone Information: Crystal Howell APRN No primary care provider on file. Allergies Allergen Reactions ??? Iodine And Iodide Containing Products Anaphylaxis ??? Penicillins Hives ??? Nitrofurantoin Other (See Comments) Stomach upset Date/Time of call: April 07, 2018/8:41 AM/ PREVIOUS MRI SCAN? Yes HEIGHT: 5'7 WEIGHT: 157 SCHEDULED SCAN: MRI BRAIN WWO CONTRAST [[id number]] SUBJECTIVE: Claustrophobic CAN YOU LAY FLAT? No AIRWAY ISSUES? No DO YOU HAVE ANY INVOLUNTARY MOVEMENTS? No DO YOU HAVE ANY PAIN? No DO YOU TAKE PAIN MED ON A DAILY BASIS? No ASSESSMENT: Appropriate for PO sedation PLAN: Valium 5-10 mg PO ( mp ) You must have a pedicab driver present when you check in. This patient has been informed that they require a pedicab driver to drive them home after this procedure. In the absence of a pedicab driver, IR will not be able to sedate for your scan. Pt verbalized understanding of these instructions during the pre-procedure education via phone. Yes [place] of pedicab driver: Willam Phone number PRIOR SCAN DATE/S SEDATION TYPE SUCCESSFUL ?? 07/11/2017 MRI Brain W/WO Valium 5 MG PO Yes 10/15/2017 MRI Brain WWO Valium 5 MG PO ??Yes 04/10/18 MRI Brain w/wo Valium 5 mg po Passed ? Revised 10/01/17 documented in this encounter Plan of Treatment Not on file documented as of this encounter Procedures Procedure Name Priority Date/Time Associated Diagnosis Comments MRI BRAIN WWO CONTRAST (GENERIC) Routine 04/10/2018 10:05 AM EST Meningioma documented in this encounter Results [...] Action Action Date Dose Rate Site diazePAM (VALIUM) tablet 5 mg 5 mg, Oral, EVERY 30 MIN PRN, 2 doses, Starting on [place] 04/10/18 at 0729, Until Sat04/11/18 at 0438, Anxiety, Angio/IR (Day of Procedure), Routine Given 04/10/2018 8:09 AM EST 5 mg documented in this encounter Care Teams Ordnance Officer Relationship Specialty Start Date End Date Crystal Howell APRN [address] [place] [address] PCP - General Family Medicine 02/27/17 documented as of this encounter
--- OUTSIDE RECORDS SUMMARY | 2023-12-30 18:42 | XMS_ITS | Encounter Summary ---
Author Organization [facility] Address [facility] [place] [address] Care Team Providers Care Interline Clerk Name Role Phone Crystal Howell APRN Primary Care Provider [phone] [phone] Reason for Referral * Diagnostic Test (Routine) - Closed Specialty Diagnoses / Procedures Referred By Contac t Referred To Contact Radiology Diagnoses Cerebral meningioma Procedures MRI Brain wwo Contrast (Generic) [facility] [address] [place] [phone] [place] [address] Referral ID Status Reason Start Date Expiration Date V isits Requested Visits Authorized [id number] Closed Specialty Service Requested 04/23/2017 04/23/2018 2 2 Reason for Visit * Diagnostic Test (Routine) - Closed Specialty Diagnoses / Procedures Referred By Contac t Referred To Contact Radiology Diagnoses Cerebral meningioma Procedures MRI Brain wwo Contrast (Generic) [facility] Neuro[facility] [address] [place] [phone] [place] [address] Referral ID Status Reason Start Date Expiration Date V isits Requested Visits Authorized [id number] Closed Specialty Service Requested 04/23/2017 04/23/2018 2 2 Encounter Details Date Type Department Care Team (Latest Contact Info) Description 07/11/2017 7:56 AM EST Hospital Encounter MRI at [facility] [place] [address] Mani Sung MD [facility] [place] [address] Cerebral meningioma Discharge Disposition: Home Social History Tobacco Use [...] Progress Notes * Ganesh Whipple RN - 07/07/2017 11:29 AM EST MRI PRE-SEDATION ASSESSMENT NOTE NAME: Em Dickerson AGE: 67 y.o. : 1950 [address] [facility] [address] Female [phone] (home) Telephone Information: Crystal Howell APRN No primary care provider on file. Allergies Allergen Reactions ??? Iodine And Iodide Containing Products Anaphylaxis ??? Penicillins Hives ??? Nitrofurantoin Other (See Comments) Stomach upset Date/Time of call: July 07, 2017/11:29 AM/ PREVIOUS MRI SCAN? Yes, no meds HEIGHT: 5'7 WEIGHT: 157 lbs SCHEDULED SCAN: MRI brain w/wo contrast: Scanner 2 SUBJECTIVE: the last time I had an MRI it was very hard to get through it. Pt would like a cloth over eyes in scanner. CAN YOU LAY FLAT? yes AIRWAY ISSUES? no DO YOU HAVE ANY INVOLUNTARY MOVEMENTS? (explain) no DO YOU HAVE ANY PAIN? no DO YOU TAKE PAIN MED ON A DAILY BASIS? no ASSESSMENT: Appropriate for po meds PLAN: Valium 5-10 mg Guidelines for MRI Pre-Procedures Laboratory Studies: GFR Date of lab draw 1. Creatinine studies (GFR level needed) within 90 days of scan ??? 70 yo or older if they are getting contrast ??? 50 years and older if they are diabetic and getting contrast ( XXX ) You must have a home delivery driver present when you check in. This patient has been informed that they require a home delivery driver to drive them home after this procedure. In the absence of a home delivery driver, IR will not be able to sedate for your scan. Pt verbalized understanding of these instructions during the pre-procedure education via phone. Yes [place] of home delivery driver: Rob Junior- partner Phone number PRIOR SCAN DATE/S SEDATION TYPE SUCCESSFUL 07/11/2017 MRI Brain W/WO Valium 5 MG PO Yes Revised 05/20/15 documented in this encounter Plan of Treatment Not on file documented as of this encounter Procedures Procedure Name Priority Date/Time Associated Diagnosis Comments MRI BRAIN WWO CONTRAST (GENERIC) Routine 07/11/2017 10:01 AM EST Cerebral meningioma documented in this encounter Results * MRI [...] MAR Action Action Date Dose Rate Site diaZEPam (VALIUM) tablet 5-10 mg 5-10 mg, Oral, ONCE PRN, 2 doses, Starting on [place] 07/11/17 at 0700, Until Sat07/12/17 at 0433, Anxiety, Angio/IR (Day of Procedure), Routine Given 07/11/2017 8:14 AM EST 5 mg documented in this encounter Care Teams Interline Clerk Relationship Specialty Start Date End Date Crystal Howell APRN [address] [place] [address] PCP - General Family Medicine 02/27/17 documented as of this encounter
--- OUTSIDE RECORDS SUMMARY | 2023-12-30 18:42 | XMS_ITS | Encounter Summary ---
Author Organization [facility] Address [facility] [place] [address] Care Team Providers Care Security Checker Name Role Phone Crystal Howell APRN Primary Care Provider [phone] Reason for Referral * Diagnostic Test (Routine) - Closed Specialty Diagnoses / Procedures Referred By Haseeb messina Referred To Contact Radiology Diagnoses Meningioma Procedures MRI Brain wwo Contrast (Generic) Mani Sung MD [facility] [place] [address] [place] [address] Referral ID Status Reason Start Date Expiration Date V isits Requested Visits Authorized [id number] Closed Specialty Service Requested 05/12/2019 11/09/2020 1 1 Encounter Details Date Type Department Care Team (Late st Contact Info) Description 05/12/2019 [place] [address] Brook Evans RN Meningioma Social [...] mastoid air cells are clear. Procedure Note Jacksno Anderson MD - 06/11/2019 EXAMINATION: MRI BRAIN [...] meninges documented in this encounter Care Teams Security Checker Relationship Specialty Start Date End Date Crystal Howell, SAJAN [address] [place] [address] PCP - General Family Medicine 02/27/17 documented as of this encounter
--- OUTSIDE RECORDS SUMMARY | 2023-12-30 18:42 | XMS_ITS | Encounter Summary ---
Author Organization [facility] Address [facility] [place] [address] Care Team Providers Care Public Health Advisor Name Role Phone Crystal Howell APRN Primary Care Provider [phone] Encounter Details Date Type Department Care Team (Late st Contact Info) Description 11/18/2017 Telephone Dermatology at [facility] [address] [place] [address] Crystal Yo MD [facility] [address] [place] [address] Social History Tobacco Use Types Packs/Day Years [...] encounter Miscellaneous Notes * Telephone Encounter - Florecita Falk - 11/18/2017 1:35 PM EDT Em left a message that she needs to cancel her appt on 11/20/17 and reschedule. I returned her call and provided my direct call back number to reschedule. documented in this encounter Plan of Treatment Not on file documented as of this encounter Visit Diagnoses Not on filedocumented in this encounter Care Teams Public Health Advisor Relationship Specialty Start Date End Date Crystal Howell APRN [address] [place] [address] PCP - General Family Medicine 02/27/17 documented as of this encounter
--- OUTSIDE RECORDS SUMMARY | 2023-12-30 18:42 | XMS_ITS | Encounter Summary ---
Author Organization [facility] Address [facility] [place] [address] Care Team Providers Care Location Worker Name Role Phone Crystal Howell APRN Primary Care Provider [phone] Reason for Visit * Diagnostic Test (Routine) - Closed Specialty Diagnoses / Procedures Referred By Haseeb messina Referred To Contact Radiology Diagnoses Meningioma Procedures MRI Brain wwo Contrast (Generic) [facility] [address] [place] [address] [facility] [place] [address] Referral ID Status Reason Start Date Expiration Date V isits Requested Visits Authorized [id number] Closed Specialty Service Requested 08/13/2017 08/13/2018 1 1 Encounter Details Date Type Department Care Team (Latest Contact Info) Description 10/15/2017 9:04 AM EDT - 10/15/2017 11:59 PM EDT [place] [address] Mani Sung MD [facility] [place] [address] Discharge Disposition: Home Social History [...] AM EDT Meningioma documented in this encounter Visit Diagnoses Not on filedocumented in this encounter Administered Medications Inactive Administered Medications - up to 3 most recent administrations Medication Order MAR Action Action Date Dose Rate Site gadoterate meglumine (DOTAREM) 0.5 mmol/mL injection 0-20 mL/kg 0-20 mL/kg/dose, Intravenous, ONCE PRN, 1 dose, Starting on Sat10/15/17 at 1034, Until Sat10/15/17 at 1100, Per Protocol, Radiology Contrast, Routine Given 10/15/2017 11:00 AM EDT 14 mLs documented in this encounter Care Teams Location Worker Relationship Specialty Start Date End Date Crystal Howell APRN [address] [place] [address] PCP - General Family Medicine 02/27/17 documented as of this encounter
--- OUTSIDE RECORDS SUMMARY | 2023-12-30 18:42 | XMS_ITS | Encounter Summary ---
Author Organization [facility] Address [facility] [place] [address] Care Team Providers Care Certified Low Vision Therapist Name Role Phone Crystal Howell APRN Primary Care Provider [phone] Encounter Details Date Type Department Care Team (Late st Contact Info) Description 10/28/2020 Telephone Dermatology at [facility] [address] [place] [address] Crystal Yo MD [facility] [address] [place] [address] Social History Tobacco Use Types Packs/Day Years [...] encounter Miscellaneous Notes * Telephone Encounter - Inga Andrade - 10/28/2020 12:54 PM EDT Left msg to reschedule FSE documented in this encounter Plan of Treatment Not on file documented as of this encounter Visit Diagnoses Not on filedocumented in this encounter Care Teams Certified Low Vision Therapist Relationship Specialty Start Date End Date Crystal Howell APRN [address] [place] [address] PCP - General Family Medicine 02/27/17 documented as of this encounter
--- OUTSIDE RECORDS SUMMARY | 2023-12-30 18:43 | XMS_ITS | Encounter Summary ---
Author Organization [facility] [place] [address] Care Team Providers Care Farm Instructor Name Role Phone Tawanna Kelly APRN Primary Care Provider [phone] Encounter Details Date Type Department Care Team (Latest Contact Info) Description 01/15/2017 - 01/15/2017 11:59 PM EDT Hospital Encounter [place] [address] Mani Sung MD [facility] [place] [address] Pain Discharge Disposition: Home Social History Tobacco Use [...] Procedure Name Priority Date/Time Associated Diagnosis Comments FILM LIBRARY STORAGE ONLY CT SPINE Routine 01/15/2017 12:00 AM EDT Pain documented in this encounter Results * Film Library- Storage Only CT Spine (01/15/2017 12:00 AM EDT) Narrative [facility] - 02/01/2017 10:05 AM EDT This exam is for storage only and is auto-finalizing. Mani Sung MD IMG FILM LIBRARY ORD ERABLES [place], [place] documented in this encounter Visit Diagnoses Diagnosis Pain Generalized pain documented in this encounter Care Teams Farm Instructor Relationship Specialty Start Date End Date Tawanna Kelly, SAJAN [address] [place] [address] PCP - General Family Medicine 07/17/16 02/26/17 documented as of this encounter
--- OUTSIDE RECORDS SUMMARY | 2023-12-30 18:43 | XMS_ITS | Encounter Summary ---
Author Organization [facility] Address [facility] [place] [address] Care Team Providers Care Consumer Electronic Retail Specialist Name Role Phone Tank Lazaro APRN Primary Care Provider [phone] Reason for Referral * Physical Therapy (Routine) - Closed Specialty Diagnoses / Procedures Referred By Haseeb t Referred To Contact Physical Therapy Diagnoses Claudication Stenosis of lateral recess of lumbar spine [facility] [place] [address] [address] [facility] [place] [address] Referral ID Status Reason Start Date Expiration Date V isits Requested Visits Authorized [id number] Closed Evaluate and Treat 09/21/2011 03/19/2012 12 12 Reason for Visit * Reason Comments Bilateral Leg Pain Groin And Leg Pain Encounter Details Date Type Department Care Team (Late st Contact Info) Description 09/21/2011 8:05 AM EDT Office [place] [address] Martinez Mancuso PA [facility] [place] [address] Claudication leg paresthesias (Primary Dx); Stenosis of lateral recess of lumbar spine Discharge Disposition: Home Social History Tobacco Use Types Packs/Day Years Used Date Smoking Tobacco: Never Sex and Gender Information Value Date Recorded Sex Assigned at Not on file Gender Identity Not on file Sexual Orientation Not on file documented as of this encounter Last Filed Vital Signs Vital Sign Reading Time Taken Comments Blood Pressure 149/74 09/21/2011 8:28 AM EDT Pulse 70 09/21/2011 8:28 AM EDT Temperature - - Respiratory Rate - - Oxygen Saturation 99% 09/21/2011 8:28 AM EDT Inhaled Oxygen Concentration - - Weight 70.3 kg (155 lb) 09/21/2011 8:28 AM EDT Height 170.2 cm (5' 7) 09/21/2011 8:28 AM EDT Body Mass Index 24.28 09/21/2011 8:28 AM EDT documented in this encounter Progress Notes * Martinez Mancuso PA - 09/21/2011 9:02 AM EDT Subjective: Patient ID: Em Dickerson is a 61 y.o. female. Back Pain This is a recurrent problem. The current episode started more than 1 month ago. The problem occurs constantly. The problem is unchanged. Pain location: no pain just numb feeling. The pain does not radiate. The pain is at a severity of 3/10. The symptoms are aggravated by standing (walking). Associated symptoms include numbness and tingling. Pertinent negatives include no bladder incontinence, toshia l incontinence, fever, leg pain, weakness or weight loss. She has tried NSAIDs and chiropractic manipulation (yoga and pilates) for the symptoms. The treatment provided mild relief. Review of Systems Constitutional: Negative for fever, chills and weight loss. Gastrointestinal: Negative. Negative for bowel incontinence. Genitourinary: Negative. Negative for bladder incontinence. Musculoskeletal: Positive for back pain. Neurological: Positive for tingling and numbness. Negative for weakness. Objective: Physical Exam Back Exam Sensation: Normal. Gait: Normal. Tenderness None Range of Motion Flexion: 80 Extension: 30 Lateral Bend Left: Lateral Bend Right: Rotation Right: Rotation Left: SLR Right: Negative Left: Negative Muscle Strength Normal Tests Toe Walk: Normal Heel Walk: Normal Reflexes Patellar: 2/4 Achilles: 2/4 Babinski: Normal Comments: Alignment: no scoliosis. ROM: there was some increased left leg tingling with lumbar extension. Hip ROM is full and pain-free. SLR: no symptoms. Femoral tension was negative. No clonus. Distal pulses are intact. Neurologic Exam Assessment and Plan: Imaging: There is an MRI of the lumbar spine dated 09/17/2011 which reveals: There is degenerative disk desiccation and disk bulging noted throughout most of the lumbar spine. There is also some facethypertrophic changes more prominent to the left side than to the right. Associated predominately with facet hypertrophy and osteophyte formation there is lateral recess stenosis on the left at the L2- L3 level. There is more mild lateral recess narrowing at the L3-L4 level. As also fairly mild bilateral lateral recess narrowing at the L4-L5 level. There are no disk herniations. The central canal is largely patent, and the neural foramen are also patent. I reviewed the images with the patient. Assessment: Left worse than right neurogenic claudication paresthesias that is likely related to lateral recess stenosis and nerve irritation but has some potential to be related to a hip pathology still. In Summary: This patient is a 61-year-old female that presents to the spine center with about 7 week history of left greater than right leg paresthesias. She reports her prior history of back issues going back to 2004 but has been largely under control until about 7 weeks ago. She was doing yoga one day and then the next day started to notice her leg being numb. She does not describe any back pain symptoms and does not describe her leg as pain symptoms for more as numbness and discomfort. She rates her discomfort between a 0-5/10 and states that her legs get worse with standing and walking and feels better with laying down. She does not describe any weakness and there is no bowel or bladder incontinence. Her treatments to date have included ibuprofen which is helpful, she is also done some yoga and Pilates. Her physical exam findings reveals a she's a fit and healthy 61-year-old female with no tenderness to the spine. She has relatively full lumbar range of motion but has a little bitof increased leg paresthesias on extension of the spine. She was able to toe and heel walk. Her hiprange of motion was full and pain-free. Neurologically she was intact to sensation, reflexes and strength. Her imaging does reveal lateral recess stenosis which is most significant to the left at theL2-L3 level but there is more mildly lateral recess narrowing to the left at the L3-L4 level and jessica aterally at L4-L5. This leads me to feel that the patient is dealing with left worse than right neurogenic claudication paresthesias symptoms that is likely related to lateral recess stenosis and nerve irritation the potential he has still some relation to the hip as she does describe some groin discomfort. Plan: I discussed with the patient the diagnosis of lateral recess spinal stenosis and claudicationpain. I did instruct the patient that these symptoms are hurtful and not harmful, and treatments are based upon the patient's preference at this time. I discussed treatment options which include: Managing symptoms with walking sticks and a flexion-based exercise program, Neurontin, LESI and surgical decompression. I did discuss the SPORT study with the patient, and noted that surgery provides thebest long-term outcome. I did review with the patient that these symptoms could get better as she still dealing with an acute symptom, and her MRI findings are not severe enough to consider surgery at this point. Based on the fact that she can tolerate her symptoms I feel that the best approach would be to be evaluated here in the spine center by one of the physical therapist to see if she has a mechanical direction of preference. If this is helpful that we would not need to proceed further with other options. However if it is not helpful we could consider doing a Medrol Dosepak or an epidural steroid injection. The patient does indicate she would like to start in the most minimal options at this time. After our discussion and answering the patients questions, we have come to an aggreement in the below stated plan: 1) I have ordered plain films of her hips and will mail the results of the hip plain films and the MRI report to the patient at a later date. 2) I have referred the patient to physical therapy in the Spine Center, to be treated with a mechanical, Richard based approach. 3) at this current time I will follow up with the patient on an as-needed basis. This dictation was performed using [employer]. I have attempted to edit the note, but there may still be errors. documented in this encounter Plan of Treatment Scheduled Referrals Name Type Priority Associated Diagnoses Orde r Schedule REFERRAL TO PHYSICAL THERAPY Outpatient Referral Routine Claudication leg paresthesias Stenosis of lateral recess of lumbar spine Ordered: 09/21/2011 documented as of this encounter Visit Diagnoses Diagnosis Claudication leg paresthesias- Primary Peripheral vascular disease, unspecified Stenosis of lateral recess of lumbar spine Spinal stenosis, lumbar region, without neurogenic claudication documented in this encounter Care Teams Consumer Electronic Retail Specialist Relationship Specialty Start Date End Date Tank Lazaro APRN PCP - General 09/10/11 12/27/14 documented as of this encounter
--- OUTSIDE RECORDS SUMMARY | 2023-12-30 18:43 | XMS_ITS | Encounter Summary ---
Author Organization [facility] [place] [address] Care Team Providers Care Senior Sales Administrator Name Role Phone Crystal Howell APRN Primary Care Provider [phone] Encounter Details Date Type Department Care Team (Late st Contact Info) Description 04/10/2005 [place] [address] Jose Baker MD [address] [place] [id number] Social History Tobacco Use Types Packs/Day Years Used Date Smoking Tobacco: Never Assessed Sex and Gender Information Value Date Recorded Sex Assigned at Not on file Gender Identity Not on file Sexual Orientation Not on file documented as of this encounter Plan of Treatment Not on file documented as of this encounter Procedures Procedure Name Priority Date/Time Associated Diagnosis Comments SURGICAL PATHOLOGY REPORT Routine 04/10/2005 1:11 PM EST documented in this encounter Results * Surgical Pathology Report (04/10/2005 1:11 PM EST) Surgical Pathology Report [id number] ? Location: The signing pathologist has (i) examined the relevant preparation(s) for the specimen(s) and (ii) rendered or confirmed the diagnosis(es). . ?Pathology Surgical Pathology Final Report Clinical Information Specimen Submitted: A - Right breast tissue. B - Left breast tissue. C - Lipoma right shoulder. Clinical History: Breast hypertrophy, mass on rt. shoulder. Gross Description A - Labeled/Fixative : Right breast tissue, fresh. Qty/Size/Weight: ?Multiple, 26.0 x 11.0 x 3.0 cm, 474 g. Tissue Description: ?? Fibrofatty breast tissue and attached and detached, ?vazquez-pink skin. ?? Skin: ?Unremarkable. ?? Sectioning: ?Adipose and dense, mace-white, fibrous tissue with ?several scattered, smooth-walled, translucent cysts, averaging 0.4 cm to 0.5 cm in greatest dimension. ??The cysts are filled with green-brown serous fluid. ??No distinct masses or nodules are noted. Sections/Process ing: ??(R3) B - Labeled/Fixative : Left breast tissue, fresh. Qty/Size/Weight: ?Multiple, 22.0 x 11.0 x 2.5 cm, 399.5 g. Tissue Description: ?? Fibrofatty breast tissue and attached vazquez-pink skin. ?? Skin: ?Unremarkable. ?? Sectioning: ?Adipose and dense, mace-white, fibrous tissue. Sections/Process ing: ??(R3) C - Labeled/Fixative : Lipoma, right shoulder; saline. Qty/Size/Weight: ?4.1 x 3.2 x 1.0 cm. Tissue Description: ?? Soft, yellow, ovoid portion of tissue. ??Sectioning ?reveals homogeneous adipose tissue. Sections/Process ing: ??The specimen is serially sectioned. ??(R1) ??aje/NS Microscopic Description Slides reviewed, microscopic description not recorded. Diagnosis A - Right breast, excision (reduction mammoplasty): ?Fibrocystic disease, mild (duct ectasia, apocrine metaplasia) B - Left breast, excision (reduction mammoplasty): ?Fibrocystic disease, mild (apocrine metaplastic cysts) C - Right shoulder, subcutaneous tissue, excision: ?Intramuscular lipoma . Diagnosis CR-0 04/11/05 WAW 04/12/05 Verified by: ? Rhoda Dias MD ?Pathologist ?(Electronic Signature) The attending pathologist whose signature appears on this report has reviewed all diagnostic slides and has edited the gross and/or microscopic portion of the report in rendering the final pathologic diagnosis. SUNDAY HALEY 04/10/2005 1:11 PM EST Jose Baker MD PATHOLOGY/CYTOLOGY O PARTHA SUNDAY HALEY documented in this encounter Visit Diagnoses Not on filedocumented in this encounter Care Teams Senior Sales Administrator Relationship Specialty Start Date End Date Crystal Howell APRN [address] [place] [address] PCP - General Family Medicine 02/27/17 documented as of this encounter
--- OUTSIDE RECORDS SUMMARY | 2023-12-30 18:43 | XMS_ITS | Encounter Summary ---
Author Organization [facility] Address [facility] [place] [address] Care Team Providers Care Commercial Lending Vice President Name Role Phone Gayatri Claros APRN Primary Care Provider [phone] Reason for Visit * Auth/Cert Specialty Diagnoses / Procedures Referred By Haseeb messina Referred To Contact Diagnoses 10 yr surv from 04/17/04 Procedures PRO COLONOSCOPY, DIAGNOSTIC COLONOSCOPY, DIAGNOSTIC Referral ID Status Reason Start Date Expiration Date Visits Re quested Visits Authorized [id number] 1 1 Encounter Details Date Type Department Care Team (Latest Contact Info) Description 02/14/2015 12:23 PM EDT - 02/14/2015 3:10 PM EDT Hospital En[place] [address] Kirsten Singleton MD [facility] [place] [address] Discharge Disposition: Home Social History Tobacco Use Types Packs/Day Years Used Date Smoking Tobacco: Never Smokeless Tobacco: Never Sex and Gender Information Value Date Recorded Sex Assigned at Not on file Gender Identity Not on file Sexual Orientation Not on file documented as of this encounter Last Filed Vital Signs Vital Sign Reading Time Taken Comments Blood Pressure 140/67 02/14/2015 2:32 PM EDT Pulse 84 02/14/2015 2:32 PM EDT Temperature 36.6 ??C (97.9 ??F) 02/14/2015 12:49 PM E DT Respiratory Rate 16 02/14/2015 2:32 PM EDT Oxygen Saturation 96% 02/14/2015 2:32 PM EDT Inhaled Oxygen Concentration - - Weight - - Height - - Body Mass Index - - documented in this encounter Discharge Instructions * Discharge Instructions* Domi Stanton, RN - 02/14/2015 2:34 PM EDT Colonoscopy What to expect after the procedure You may feel a little more gassy or bloated than usual. This is normal. You should expect the return of normal bowel function in the 2 to 3 days. Activity Because of the sedation that you received your judgement and reaction time are effected ?? Go home and rest quietly for the remainder of the day. You may resume your normal activities tomorrow. ?? Change from one position to the next slowly. You may lose your balance unexpectedly ?? Be careful on stairs, as you may be unsteady on your feet FOR THE NEXT 24 HRS ?? DO NOT DRIVE OR OPERATE ANY MACHINERY ?? DO NOT DRINK ALCOHOLIC BEVERAGES ?? DO NOT SIGN LEGAL DOCUMENTS ?? If you are a smoker: DO NOT SMOKE WHILE YOU ARE ALONE Diet ?? Start by eating small portions of foods that ordinarily will not upset your stomach . Avoid gas producing foods for the next few days ?? Be gentle with what you choose to start with ?? Drink plenty of fluids ( unless your doctor has told you not to). IV SITE-- slight redness, or tenderness is normal. You can use warm compresses if you become concerned. If the tenderness +/or redness increases or foul drainage and a red streak occurs, please contact your PCP immediately When shoud you call for help? Call 911 anytime you think you may need emergency care. For example If you pass out ( loss of consciousness) If you pass maroon or bloody stools If you have severe belly pain Call your doctor now or seek immediate medical care If your stools are black and tarlike If your stools have streaks of blood, but you did not have a biopsy or any polyps removed If you have belly pain, or your belly is swollen and firm If you vomit If you have a fever If you are very dizzy Watch closely for changes in your health, and be sure to contact your doctor if you have any problems Your doctor will let you know when you will need your next colonoscopy. The results of your test and your risk for colorectal cancer will help your doctor decide how often you need to be checked. Saturday-Saturday Same Day Endo [phone] 7a-8p Otherwise contact [phone] and ask to speak to the assistant professor of geography golf professional Follow up care is a crespo part of your treatment and safety. Be sure to make and go to all appointments, and call your doctor if you are having problems. Discharge instructions reviewed with patient who expresses understanding documented in this encounter H&P Notes * Kirsten Singleton MD - 02/14/2015 1:14 PM EDT Gastroenterology and Hepatology Pre-Procedure History and Physical Exam Procedure: Colonoscopy: Indication: screening Patient Active Problem List Diagnosis Code ??? Stenosis of lateral recess of lumbar spine 724.02 ??? Claudication leg paresthesias 443.9 EXAM: HEENT: Airway examined, oropharynx clear Mallampati Score: II (soft palate, uvula, fauces visible) LUNGS: Clear to auscultation HEART: Regular rate and rhythm, normal S1, S2 ABDOMEN: Normal bowel sounds, soft, non tender, non distended, A/P Proceed with the planned endoscopic procedure. ASA 2 - Patient with mild systemic disease with no functional limitations Sedation Plan: moderate (conscious sedation) Risks and benefits of the procedure explained to the patient. Consent signed. documented in this encounter Plan of Treatment Not on file documented as of this encounter Procedures Procedure Name Priority Date/Time Associated Diagnosis Comments COLONOSCOPY, DIAGNOSTIC (WRVU 3.26) 02/14/2015 1:41 PM EDT 10 yr surv from 04/17/04 COLONOSCOPY Routine 02/14/2015 12:45 PM EDT documented in this encounter Results * COLONOSCOPY (02/14/2015 12:45 PM EDT) COLONOSCOPY [facility] Patient Name: Em Dickerson ? Procedure Date: 02/14/2015 12:45 PM ? Date of : 1950 ? Age: 64 ? Order #: [id number] ? Procedure: ? Colonoscopy Indications: ? Screening for colorectal malignant ? neoplasm Providers: ? Kirsten Singleton MD, Lisa Lopez, RN, ? Lisa Herrmann, Comptometer Operator Referring : ?Gayatri Claros MD Medicines: ? Midazolam 3 [...] Claros APRN GENERAL SURGICAL O RDERABLES PROVATION documented in this encounter Visit Diagnoses Not on filedocumented in this encounter Administered Medications Inactive Administered Medications - up to 3 most recent administrations Medication Order MAR Action Action Date Dose Rate Site lactated ringers infusion 100 mL/hr, Intravenous, CONTINUOUS, Starting on Sat02/14/15 at 1315, Until Sat02/14/15 at 1552, Endoscopy (Day of Procedure) New Bag 02/14/2015 12:55 PM EDT 100 mL/hr 100 mL/hr documented in this encounter Active and Recently Administered Medications Times are shown in EDT. Continuous Medication Order 02/12/2015 02/13/2015 02/14/2015 lactated ringers infusion (CANCELED) 100 mL/hr, Intravenous, CONTINUOUS, Starting on Sat02/14/15 at 1315, Until Sat02/14/15 at 1552, Endoscopy (Day of Procedure) 1255 (New Bag - Prov ider: Will Perla RN) PRN Medication Order 02/12/2015 02/13/2015 02/14/2015 fentaNYL 50 mcg/mL multi-dose injection (CANCELED) ONCE PRN, Starting on Sat02/14/15 at 1344, Until Sat02/14/15 at 1552, Intra-Operative (Intra-Procedure), Routine 1344 (Given - Provid er: Lisa Lopez RN - Comment: starting sedation)1347 (Given - Provider: Lisa Lopez RN - Comment: continuing sedation)1356 (Given - Provider: Lisa Lopez RN - Comment: pt uncomfortable) midazolam (PF) (VERSED) 1 mg/mL multi-dose injection (CANCELED) ONCE PRN, Starting on Sat02/14/15 at 1344, Until Sat02/14/15 at 1552, Intra-Operative (Intra-Procedure), Routine 1344 (Given - Provid er: Lisa Lopez RN)1347 (Given - Provider: Lisa Lopez RN - Comment: continuing sedation)1355 (Given - Provider: Lisa Lopez RN - Comment: pt uncomfortavle) documented in this encounter Care Teams Commercial Lending Vice President Relationship Specialty Start Date End Date Gayatri Claros APRN PCP - General 12/28/14 07/01/16 documented as of this encounter
--- OUTSIDE RECORDS SUMMARY | 2023-12-30 18:43 | XMS_ITS | Encounter Summary ---
Author Organization [facility] Address [facility] [place] [address] Care Team Providers Care Mobile Home Laborer Name Role Phone Tawanna Kelly APRN Primary Care Provider [phone] Encounter Details Date Type Department Care Team (Late st Contact Info) Description 08/01/2016 Telephone Dermatology at [facility] [address] [place] [address] Tal Cha MD [facility] [address] [facility] [place] [address] Social History Tobacco Use Types Packs/Day Years Used Date Smoking Tobacco: Never Smokeless Tobacco: Never Sex and Gender Information Value Date Recorded Sex Assigned at Not on file Gender Identity Not on file Sexual Orientation Not on file documented as of this encounter Miscellaneous Notes * Telephone Encounter - Mallory Dye - 08/01/2016 12:15 PM EDT Patient called requesting a referral to [facility] for her MOH's surgery. I told patient that I would ask Josiane to send a referral tomorrow when she returns to the office. Patient gave a fax number for [facility] as [phone]. documented in this encounter Plan of Treatment Not on file documented as of this encounter Visit Diagnoses Not on filedocumented in this encounter Care Teams Mobile Home Laborer Relationship Specialty Start Date End Date Tawanna Kelly, FRUIT THINNER MACHINE OPERATOR [address] [place] [address] PCP - General Family Medicine 07/17/16 02/26/17 documented as of this encounter
--- OUTSIDE RECORDS SUMMARY | 2023-12-30 18:43 | XMS_ITS | Encounter Summary ---
Author Organization [facility] Address [facility] [place] [address] Care Team Providers Care Environmental Inspector Name Role Phone Crystal Howell APRN Primary Care Provider [phone] Encounter Details Date Type Department Care Team (Late st Contact Info) Description 04/02/2005 Orders Only Dermatology at [place] [address] [place] [address] Selvin Rivera MD [address] [facility] [address] DERMATOLOGY [place], [place] [id number] Social History Tobacco Use Types Packs/Day Years [...] Associated Diagnosis Comments SURGICAL PATHOLOGY REPORT Routine 04/02/2005 5:45 PM EST documented in this encounter Results * Surgical Pathology Report (04/02/2005 5:45 PM EST) Surgical Pathology Report [id number] ? Location: The signing pathologist has (i) examined the relevant preparation(s) for the specimen(s) and (ii) rendered or confirmed the diagnosis(es). . ?Pathology Surgical Pathology Final Report Clinical Information Specimen Submitted: A - Back, shave Clinical History: Bothersome moles. ??Nevi Gross Description Labeled/Fixative : ? Back, formalin. Qty/Size/Weight: ?Four, 0.4 x 0.5 x 0.5 cm each respectively and each ?averaging 0.2 cm in thickness. Tissue Description: ?? Mottled, brown-mace papules. Sections/Process ing: ??Each is bisected. ??(T3) ??aje/PPS Microscopic Description Slides reviewed, microscopic description not recorded. Diagnosis Skin of back, three shave biopsies: Two compound nevi, deep margins involved. One intradermal nevus with congenital features, deep margin involved. CR-0 04/04/05 [facility] 04/04/05 Verified by: ? Patrica Evangelista MD ?Dermatopatholo gist ?(Electronic Signature) The attending pathologist whose signature appears on this report has reviewed all diagnostic slides and has edited the gross and/or microscopic portion of the report in rendering the final pathologic diagnosis. SUNDAY HALEY 04/02/2005 5:45 PM EST Selvin Rivera MD PATHOLOGY/CYTOLOGY O RDERABLES SUNDAY HALEY documented in this encounter Visit Diagnoses Not on filedocumented in this encounter Care Teams Environmental Inspector Relationship Specialty Start Date End Date Crystal Howell APRN [address] [place] [address] PCP - General Family Medicine 02/27/17 documented as of this encounter
--- OUTSIDE RECORDS SUMMARY | 2023-12-30 18:43 | XMS_ITS | Encounter Summary ---
Author Organization [facility] Address [facility] [place] [address] Care Team Providers Care Forensic Social Worker Name Role Phone Tawanna Kelly SAJAN Primary Care Provider [phone] Encounter Details Date Type Department Care Team (Late st Contact Info) Description 08/10/2016 Telephone Dermatology at [facility] [address] [place] [address] Tal Cha MD [facility] [address] [address] Social History Tobacco Use Types Packs/Day Years Used Date Smoking Tobacco: Never Smokeless Tobacco: Never Sex and Gender Information Value Date Recorded Sex Assigned at Not on file Gender Identity Not on file Sexual Orientation Not on file documented as of this encounter Miscellaneous Notes * Telephone Encounter - Josiane Khanna - 08/10/2016 1:24 PM EDT Pt called today to have me fax her pathology and office notes to [facility]. For Derm.,Tommie Stacy MD FAX [phone] PHONE [phone]. I have done. documented in this encounter Plan of Treatment Not on file documented as of this encounter Visit Diagnoses Not on filedocumented in this encounter Care Teams Forensic Social Worker Relationship Specialty Start Date End Date Tawanna Kelly, GRAIN MERCHANDISING MANAGER [address] [place] [address] PCP - General Family Medicine 07/17/16 02/26/17 documented as of this encounter
--- OUTSIDE RECORDS SUMMARY | 2023-12-30 18:43 | XMS_ITS | Encounter Summary ---
Author Organization [facility] Address [facility] [place] [address] Care Team Providers Care Radio Repairer Domestic Name Role Phone Tawanna Kelly APRN Primary Care Provider [phone] Encounter Details Date Type Department Care Team (Late st Contact Info) Description 07/31/2016 Telephone Dermatology at [facility] [address] [place] [address] Tal Cha MD [facility] [address] [place] [address] Social History Tobacco Use Types Packs/Day Years Used Date Smoking Tobacco: Never Smokeless Tobacco: Never Sex and Gender Information Value Date Recorded Sex Assigned at Not on file Gender Identity Not on file Sexual Orientation Not on file documented as of this encounter Miscellaneous Notes * Telephone Encounter - Josiane Khanna - 07/31/2016 10:34 AM EDT Patient decided to have [facility] r [facility] at [facility] documented in this encounter Plan of Treatment Not on file documented as of this encounter Visit Diagnoses Not on filedocumented in this encounter Care Teams Radio Repairer Domestic Relationship Specialty Start Date End Date Tawanna Kelly APRN [address] [place] [address] PCP - General Family Medicine 07/17/16 02/26/17 documented as of this encounter
--- OUTSIDE RECORDS SUMMARY | 2023-12-30 18:43 | XMS_ITS | Encounter Summary ---
Author Organization [facility] Address [facility] [place] [address] Care Team Providers Care Fur Blowing Machine Operator Name Role Phone Vicki Kellyh SAAJN Primary Care Provider [phone] Reason for Visit * Reason Comments Brain Tumor MENINGIOMA... * Consultation (Routine) - Specialty Diagnoses / Procedures Referred By Haseeb messina Referred To Contact Neurosurgery Diagnoses Meningioma tumor in the temporal fossa Ambar Harrison APRN [address] [place] [address] Mani Sung MD [facility] [place] [place] [address] Referral ID Status Reason Start Date Expiration Date V isits Requested Visits Authorized [id number] Consult, [facility] 01/29/2017 01/29/2018 1 1 Encounter Details Date Type Department Care Team (Late st Contact Info) Description 02/21/2017 9:30 AM EDT Office [place] [address] Mani Sung MD [facility] [place] [address] Meningioma Social History Tobacco Use Types Packs/Day [...] Sign Reading Time Taken Comments Blood Pressure 137/61 02/21/2017 9:17 AM EDT Pulse 68 02/21/2017 9:17 AM EDT Temperature - - Respiratory Rate - - Oxygen Saturation - - Inhaled Oxygen Concentration - - Weight 72.6 kg (160 lb) 02/21/2017 9:17 AM EDT Height 170.2 cm (5' 7) 02/21/2017 9:17 AM EDT Body Mass Index 25.06 02/21/2017 9:17 AM EDT documented in this encounter Progress Notes * Mallory Lundy APRN - 02/21/2017 9:30 AM EDT Name: Em Dickerson : 1950 PCP: Tawanna Kelly APRN REF: Ambar Harrison Date of Service: 02/21/2017 History & Physical CHIEF COMPLAINT Meningioma in temporal fossa. 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 Late summer had an appointment with mandate retail service merchandiser due to syncopal symptoms which was at time diagnosed as vasovagal in origin. At that visit, enlarged mass in left neck was discovered which prompted ultrasound and CT which revealed the meningioma. Had some eye symptoms consisting of peripheral blinking lights that she notices at night. Saw ophthalmology about that, which thought it was age related. 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 Has decreased alcohol consumption which has helped reduce episodes of vertigo. Hypothyroid, asthma, not bad anymore. Otherwise healthy. Numbness and tingling in right leg Remote, brief smoking history. Ultrasound at [facility]. PCP is Mariam Hernandez @ [facility]. Takes fish oil. PAST MEDICAL HISTORY Patient Active Problem List Diagnosis Code ??? 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 Claudication leg paresthesias I73.9 History reviewed. No pertinent past medical history. Past Surgical History: Procedure Laterality Date ??? PRO COLONOSCOPY, DIAGNOSTIC N/A 02/14/2015 COLONOSCOPY, DIAGNOSTIC performed by Kirsten Singleton MD at [facility] ENDOSCOPY ALLERGIES Allergies Allergen Reactions ??? Iodine And Iodide Containing Products Anaphylaxis ??? Penicillins Hives ??? Nitrofurantoin Other (See Comments) Stomach upset MEDICATIONS Current Outpatient Prescriptions: ??? HERBAL DRUGS ORAL, Take 2 tablets by mouth nightly as needed. [facility] , Disp: , Rfl: SOCIAL HISTORY Social History Social History ??? Marital status: [...] ??? Not on file Social History Narrative FAMILY HISTORY History reviewed. No pertinent family history. Parents - CHF late. REVIEW OF SYSTEMS General: Denies recent fever, chills, or weight changes. Eyes: Denies recent changes in vision. ENT: Denies recent changes in hearing or dysphagia. Cardiovascular: Denies CP, palpitations, or irregular heart beat.none Respiratory: Denies SOB, cough, or recent respiratory infections. GI: Denies N/V/D/C or change in appetite.None : Denies changes in urination; frequency, urgency or burning.None Musculoskeletal: Denies weakness, numbness, or tingling in extremities. Heme: Denies recent or history of bleeding or clotting disorder. None Neuro: Denies recent changes in mentation, memory, or behavior. PHYSICAL EXAM BP 137/61 Pulse 68 Ht 170.2 cm (5' 7) Wt 72.6 kg (160 lb) BMI 25.06 kg/m2 Constitutional: Well developed, well nourished, in NAD. ENT: Clear, hearing intact to limited bedside testing. Cardiovascular: Regular rate, rhythm, no murmur. Respiratory: Clear to auscultation all zhu. GI: Normal bowel sounds. Abdomen soft, non tender. Neuro: Mental Status/Cognitive: Awake, alert, answers questions appropriately. Cranial Nerves: CN II - Vision grossly intact, PERRLA CN III, IV, - EOMI CN V - V1-3 dermatomes intact to light touch CN VII - No facial asymmetry CN VIII - Hearing intact to limited bedside exam CN IX, X - Uvula midline CN XI - Shoulder shrug 5/5 bilaterally CN XII - Tongue midline Motor: Normal muscle bulk and tone. No pronator drift. Strength 5/5 throughout all muscle groups inall four extremities. Sensory: Sensation grossly intact to light touch in all four extremities. Cerebellar: No dysmetria with finger to nose testing bilaterally Gait: Normal gait. Reflexes: Martin's, Babinski, and clonus negative. DTRs 2+ symmetric throughout. Palpapble distal pulses; no swelling in ankles. ASSESSMENT & PLAN Mallory Lundy APRN * Mani Sung MD - 02/21/2017 9:30 AM EDT I have seen the patient as part of a shared visit with Mallory Lundy APRN. Please see attached note for further details. I agree with the details as written. The assessment and plan were formulated in discussion with me and I agree with them as documented. Briefly, Em Dickerson is a 66 yo woman with an incidentally discovered left lateral sphenoid wing meningioma referred for consideration of surgery. She underwent Mohs surgery for a left cheek melanoma in August 2016, then saw a mandate retail service merchandiser for near syncopal episodes. As part of that evaluation, therewas concern for a mass in her neck, possibly related to her melanoma episode. Thus, she was referred for a CT scan of her neck. This was reassuring as to the neck mass, which was felt to be a benign lymph node, but did reveal an intracranial mass. She then underwent an MRI, which demonstrated the left sphenoid wing dural-based mass. She denies headache, vision changes, speech difficulty, weakness, numbness. She has noted flashes of light at night, and this was evaluated by her automotive parts counter assistant who felt it was related to age-related changes in her eye. On exam, her neurological exam is unremarkable. We discussed her MRI from 02/16 which demonstrates an enhancing dural-based mass along the lateral sphenoid wing, as well as extensive edema along nearly her entire left temporal lobe. She had previously undergone neurosurgical evaluation at [facility] and at [facility] with Dr. Irby, and thus was well aware of her diagnosis. We discussed that while the MRI appearance is mostconsistent with a benign meningioma, tissue sampling would be needed to provide a definitive diagnosis. We also discussed that the large size and extensive edema would lead me to recommend surgical resection. The tumor does not yet extent to the optic nerve, but I would be concerned that further growth would make surgical resection more difficult. We would plan on a pterional craniotomy with resection of the mass and the dura laterally, and cauterization of the skull base dura. We discussed theexpected benefits, risks, and alternatives to surgery, including observation and radiation. She is interested in moving forward with surgery at [facility] and a consent for surgery was signed. Mani Sung MD Total visit time 60 minutes, of which 40 were spent counseling and coordinating care, including reviewing relevant imaging, lab results, and/or medical records. documented in this encounter Plan of Treatment Not on file documented as of this encounter Visit Diagnoses Diagnosis Meningioma Benign neoplasm of cerebral meninges documented in this encounter Care Teams Fur Blowing Machine Operator Relationship Specialty Start Date End Date Tawanna Kelly APRN [address] [place] [place] [address] PCP - General Family Medicine 07/17/16 02/26/17 documented as of this encounter
--- OUTSIDE RECORDS SUMMARY | 2023-12-30 18:43 | XMS_ITS | Encounter Summary ---
Author Organization [facility] [place] [address] Care Team Providers Care Medium Cycle Salesperson Name Role Phone Tawanna Kelly APRN Primary Care Provider [phone] Encounter Details Date Type Department Care Team (Latest Contact Info) Description 02/16/2017 - 02/16/2017 11:59 PM EDT Hospital Encounter [place] [address] Mani Sung MD [facility] [place] [address] Discharge Disposition: Home Social History Tobacco Use [...] Associated Diagnosis Comments FILM LIBRARY STORAGE ONLY MR HEAD Routine 02/16/2017 12:00 AM EDT documented in this encounter Results * Film Library- Storage Only MR Head (02/16/2017 12:00 AM EDT) Narrative [facility] - 02/21/2017 9:21 AM EDT This exam is for storage only and is auto-finalizing. Main Sung MD IM FILM LIBRARY ORD ERABLES [place], [place] documented in this encounter Visit Diagnoses Not on filedocumented in this encounter Care Teams Medium Cycle Salesperson Relationship Specialty Start Date End Date Tawanna Kelly, SAJAN [address] [place] [address] PCP - General Family Medicine 07/17/16 02/26/17 documented as of this encounter
--- OUTSIDE RECORDS SUMMARY | 2023-12-30 18:43 | XMS_ITS | Encounter Summary ---
Author Organization [facility] Address [facility] [place] [address] Care Team Providers Care Truck Driver Rubbish Collector Name Role Phone Tawanna Kelly APRN Primary Care Provider [phone] Encounter Details Date Type Department Care Team (Late st Contact Info) Description 08/02/2016 Telephone Dermatology at [facility] [address] [place] [address] Tal Cha MD [facility] [place] [address] Social History Tobacco Use Types Packs/Day Years Used Date Smoking Tobacco: Never Smokeless Tobacco: Never Sex and Gender Information Value Date Recorded Sex Assigned at Not on file Gender Identity Not on file Sexual Orientation Not on file documented as of this encounter Miscellaneous Notes * Telephone Encounter - Josiane Khanna - 08/02/2016 1:43 PM EDT Pt has had me fax her path and office notes to [place] [facility]. documented in this encounter Plan of Treatment Not on file documented as of this encounter Visit Diagnoses Not on filedocumented in this encounter Care Teams Truck Driver Rubbish Collector Relationship Specialty Start Date End Date Tawanna Kelly APRN [address] [place] [address] PCP - General Family Medicine 07/17/16 02/26/17 documented as of this encounter
--- OUTSIDE RECORDS SUMMARY | 2023-12-30 18:43 | XMS_ITS | Encounter Summary ---
Author Organization Counts Include [facility] Address [facility] [place] [address] Care Team Providers Care Dye House Supervisor Name Role Phone Gayatri Claros APRN Primary Care Provider [phone] Reason for Visit * Auth/Cert Specialty Diagnoses / Procedures Referred By Haseeb messina Referred To Contact Diagnoses 10 yr surv from 04/17/04 Procedures PRO COLONOSCOPY, DIAGNOSTIC COLONOSCOPY, DIAGNOSTIC Referral ID Status Reason Start Date Expiration Date Visits Re quested Visits Authorized [id number] 1 1 Encounter Details Date Type Department Care Team (Late st Contact Info) Description 02/14/2015 1:30 PM EDT - 02/14/2015 2:30 PM EDT [place] [address] Kirsten Singleton MD [facility] [place] [address] COLONOSCOPY, DIAGNOSTIC (WRVU 3.26) Social History Tobacco Use Types Packs/Day Years [...] to be checked. Saturday-Saturday Same Day Endo [phone] [id number] Otherwise contact [phone] and ask to speak to the church supervisor corrosion control engineer Follow up care is a crespo part [...] * COLONOSCOPY (02/14/2015 12:45 PM EDT) COLONOSCOPY [facility] Endoscopy Patient Name: Em Dickerson ? Procedure Date: 02/14/2015 12:45 PM ? Date of : 1950 ? Age: 64 ? Order #: [id number] ? Procedure: ? Colonoscopy Indications: ? Screening for colorectal malignant ? neoplasm Providers: ? Kirsten Singleton MD, Lisa Lopez RN, ? Lisa Herrmann, School Manager Referring MD: ?Gayatri Clraos MD Medicines: ? Midazolam 3 mg IV, [...] 02/14/2015 12:4 5 PM EDT Gayatri Claros [facility] [employer] documented in this encounter Visit Diagnoses Not on filedocumented in this encounter Administered Medications Inactive Administered Medications - up to 3 most recent administrations Medication Order MAR Action Action Date Dose Rate Site fentaNYL 50 mcg/mL multi-dose injection ONCE PRN, Starting on Sat02/14/15 at 1344, Until Sat02/14/15 at 1552, Intra-Operative (Intra-Procedure), Routine Given 02/14/2015 1:56 PM EDT 50 mcg Right Arm Given 02/14/2015 1:47 PM EDT 50 mcg Ri ght Arm Given 02/14/2015 1:44 PM EDT 50 mcg Ri ght Arm lactated ringers infusion 100 mL/hr, Intravenous, CONTINUOUS, Starting on 02/14/15 at 1315, Until Sat02/14/15 at 1552, Endoscopy (Day of Procedure) New Bag 02/14/2015 12:55 PM EDT 100 mL/hr 100 mL/hr midazolam (PF) (VERSED) 1 mg/mL multi-dose injection ONCE PRN, Starting on Sat02/14/15 at 1344, Until 02/14/15 at 1552, Intra-Operative (Intra-Procedure), Routine Given 02/14/2015 1:55 PM EDT 1 mg Right Arm Given 02/14/2015 1:47 PM EDT 1 mg Ri ght Arm Given 02/14/2015 1:44 PM EDT 1 mg Ri ght Arm documented in this encounter Active and Recently [...] Comment: continuing sedation)1356 (Given - Provider: Lisa P Musty, RN - Comment: pt uncomfortable) midazolam (PF) (VERSED) 1 mg/mL multi-dose injection (CANCELED) ONCE PRN, Starting on Sat02/14/15 at 1344, Until Sat02/14/15 at 1552, Intra-Operative (Intra-Procedure), Routine 1344 (Given - Provid er: Lisa Lopez RN)1347 (Given - Provider: Lisa Lopez RN - Comment: continuing sedation)1355 (Given - Provider: Lisa Lopez RN - Comment: pt uncomfortavle) documented in this encounter Care Teams Dye House Supervisor Relationship Specialty Start Date End Date Gayatri Claros APRN PCP - General 12/28/14 07/01/16 documented as of this encounter
--- OUTSIDE RECORDS SUMMARY | 2023-12-30 18:43 | XMS_ITS | Encounter Summary ---
Author Organization [facility] Address [facility] [place] [address] Care Team Providers Care Summer Sessions Director Name Role Phone Tawanna Kelly APRN Primary Care Provider [phone] Reason for Visit * Reason Comments Skin Check * Consultation (Routine) - Specialty Diagnoses / Procedures Referred By Haseeb messina Referred To Contact Dermatology Diagnoses Melanocytic nevi, unspecified Facial mole with change Tawanna Kelly APRN [address] [place] [address] [facility] Dermatology [address] [place] [address] Referral ID Status Reason Start Date Expiration Date V isits Requested Visits Authorized [id number] 06/15/2016 06/15/2017 6 6 Encounter Details Date Type Department Care Team (Late st Contact Info) Description 07/17/2016 9:15 AM EDT Office Visit Dermatology at [facility] [address] [place] [address] Tal Cha MD [facility] [address] [place] [address] Neoplasm of uncertain behavior of skin; Skin exam, screening for cancer; Multiple benign nevi; Caf?? au lait spot Social History Tobacco Use Types Packs/Day Years Used Date Smoking Tobacco: Never Smokeless Tobacco: Never Sex and Gender Information Value Date Recorded Sex Assigned at Not on file Gender Identity Not on file Sexual Orientation Not on file documented as of this encounter Patient Instructions * Patient Instructions* Sherley Guevara CMA - 07/17/2016 9:15 AM EDT Treatment and Wound Care Instructions Your treatment today: You have had a punch biopsy of your skin, which is a removal of tissue for examination under a microscope. If bleeding occurs, hold firm pressure against the wound for 15 minutes. If bleeding continues, calls the office or go to your local emergency room. Please allow 1-2 weeks for the biopsy results to return. Your physician or nurse will contact you with the results by phone or letter; follow-up will be discussed at that time. Wound Care Instructions: You will need to keep the dressing placed over the wound dry and intact for 24 hours. Afterwards, perform the following wound care daily until your stitches are removed: ?? Wash your hands before changing the dressing. ?? Remove the bandage and clean the area with mild soap and water, then gently pat the area dry. ?? Apply a small amount of Vaseline to the area, then cover the wound with a band-aid. Change your dressing daily until the wound is fully healed. ?? A small amount of yellow drainage is part of normal healing. You might notice some redness around the edge of the wound. This is normal. ?? Please contact the office you you notice any of the following signs of infection: increased tenderness, pain, drainage, or redness that becomes hot or hard around the wound. If you have further questions or concerns, please call the office at [phone]. If it is after 5PM, or a holiday or weekend, please call [phone] and ask for the Mink Farmer on-call. documented in this encounter Progress Notes * Tal Cha MD - 07/19/2016 8:40 AM EDT Spoke with pt re path. Needs excision, please refer for Mohs here. Pt away the month of August, okayto wait till September. * Tal Cha MD - 07/17/2016 9:15 AM EDT Images from the original note were not included. DERMATOLOGY NEW PATIENT CLINIC NOTE Date of service: 07/17/2016 Hannah Dickerson : 1950 Provider: Tal Cha MD Chief Complaint Patient presents with ??? Skin Check HPI Hannah Dickerson is a 66 y.o. year old female. New patient; self-referred for a spot on her left cheek x 2+ years, Patient's partner states that it has gotten bigger in the last year. Patient would also like a full skin exam. No personal or family history of dysplastic nevi or melanoma. No history of skin cancer. SKIN HX: none ADR: Allergies Allergen Reactions ??? Iodine And Iodide Containing Products Anaphylaxis ??? Penicillins Hives ??? Nitrofurantoin Other (See Comments) Stomach upset MEDS: Current Outpatient Prescriptions Medication Sig Dispense Refill ??? ibuprofen (ADVIL;MOTRIN) 800 mg tablet Take 800 mg by mouth 3 times daily. No current facility-administered medications for this visit. ROS General: feeling well Skin: denies other skin complaints EXAM General: NAD, pleasant, cooperative Skin: A total body skin exam was performed. This includes examination of the skin of the face, ears, neck, chest, axillae, left and right upper and lower extremities, hands and feet, abdomen, and areas covered by underwear. Significant skin findings: A. Asymmetrical vazquez macule with raised center on the left cheek B.4 cm Cafe au lait lower back C. Scant nevi ASSESSMENT/PLAN: A. R/O Melanoma -Procedure: Skin biopsy by punch technique. Location: left cheek Discussed indications for the procedure and expectations including risks and benefits. Verbal consent obtained. Skin prep with alcohol. Local anesthesia: 1% lidocaine with 1/100,000 epinephrine. A 3 mm punch biopsy to the level of the subcutis was performed. There were no complications; the patienttolerated the procedure well. The wound was dressed. Post-procedure expectations (including discomfort management), wound care and activity restrictions were reviewed. Follow-up based on pathology results. B.Cafe au lait C. Benign nevi RTC: TBA post path I am documenting this encounter acting as the scribe for and in the presence of Dr. Cha: Sherley Guevara [facility] I performed the above scribed service and agree with the accuracy of the documentation in this encounter. Tal Cha MD Section of Dermatology [facility] documented in this encounter Plan of Treatment Not on file documented as of this encounter Procedures Procedure Name Priority Date/Time Associated Diagnosis Comments SPECIMEN TO PATHOLOGY (NON-OR) Routine 07/17/2016 10:14 AM EDT Neoplasm of uncertain behavior of skin SURGICAL PATHOLOGY REPORT Routine 07/17/2016 10:14 AM EDT documented in this encounter Results * Surgical Pathology Report (07/17/2016 10:14 AM EDT) Final Diagnosis [id number] ?Location: [facility] The signing pathologist has (i) examined the relevant preparation(s) for the specimen(s) and (ii) rendered or confirmed the diagnosis(es). . ?Surgical Pathology DIAGNOSIS Skin, left cheek, punch ?? biopsy: Melanoma in situ, involving peripheral biopsy edges, (see Discussion). Electronically signed by: ??Patrica Evangelista MD Verified: ??07/18/2016 ?Dermatopathologist DISCUSSION There is a cellular intra-epidermal pagetoid proliferation of large, atypical epithelioid melanocytes, with adnexal extension. ??There are features of superficial spreading subtype of melanoma. ??There is prominent ?lymphohistiocytic inflammation in the dermis, without definitive invasion identified in the inflammation. ??As this is a partial sample, final staging information can be determined on examination of the entire lesion. ADDITIONAL STUDIES Immunohistochemistry Studies: Formalin-fixed, paraffin-embedded tissue [...] histopathological criteria and other diagnostic tests. Block ? Antibody ?Result (Positive/Negative) A1 ? MelanA ? Positive, highlights melanocytes. CLINICAL INFORMATION Specimen Submitted: A - Skin, left cheek, punch (1) Clinical History: Asymmetrical vazquez macule with a raised center Clinical Diagnosis: Rule out melanoma SPECIMEN PROCESSING A - Labeled/Fixative: L. Cheek, formalin. Quantity/Size: Single, 0.4 cm. Tissue Description: Punch of yellow-vazquez skin excised to depth of 0.3 cm. Sections/Processing: Bisected. (T1) ??ejr 07/18/2016 1:55 PM EDT [facility] SPECIMEN FROM SKIN / Unknown 07/17/2016 10:14 AM EDT 07/17/2016 10:14 AM EDT Tal Cha MD PATHOLOGY/CYTOLOGY ORDERABLES Performing Organization Address City/[facility]/[place] [address] * Specimen to Pathology (NON-OR) (07/17/2016 10:14 AM EDT) AP Specimen 07/17/2016 10:1 4 AM EDT 07/17/2016 1:05 PM EDT Narrative [facility] - 07/17/2016 1:05 PM EDT Specimen requisition ordered. ??Separate Pathology report to follow Resulting Agency Comment Spec In Lab Tal Cha MD PATHOLOGY/CYTOLOGY ORDERABLES [place] [address] documented in this encounter Visit Diagnoses Diagnosis Neoplasm of uncertain behavior of skin Skin exam, screening for cancer Screening for malignant neoplasm of the skin Multiple benign nevi Benign neoplasm of skin, site unspecified Caf?? au lait spot Other dyschromia documented in this encounter Care Teams Summer Sessions Director Relationship Specialty Start Date End Date Tawanna Kelly, JOB ANALYSIS MANAGER [address] [place] [address] PCP - General Family Medicine 07/17/16 02/26/17 documented as of this encounter
--- OUTSIDE RECORDS SUMMARY | 2023-12-30 18:43 | XMS_ITS | Encounter Summary ---
Author Organization [facility] Address [facility] 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 She was seen with the expectations to see if there is anything that can be done from anexercise perspective to ease the pain and improve her ability to function. History of Present Illness: Ms. Dickerson reports 2 months ago the morning following yoga she began to have bilateral leg numbness and tingling. Treatment to date has included pilates, ibuprofen, and activity modification. Recent imaging of the lumbar spine has revealed degenerative disk desiccation and disk bulging noted throughout most of the lumbar spine with facet hypertrophic changes more prominent to the left side than to the right. There is facet hypertrophy and osteophyte formation with lateral recess stenosis on the left at the L2-L3 level. There is mild lateral recess narrowing at the L3-L4 level and also fairly mild bilateral lateral recess narrowing at the L4-L5 level. Ms. Dickerson currently complains of intermittent numbness and tingling in the lateral aspect of her thighs, left greater than right. Symptoms worsen when playing tennis. Symptoms ease when taking her ibuprofen, changing position or activity, or sitting down. She sleeps well at night. She denies a gait or balance disturbance. Ms. Dickerson's functional self care goal includes being able to play tennis without symptoms. 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 She exercises regularly by taking Pilates classes and playing tennis Physical Exam: Ms. Dickerson is a pleasant 61 y.o. female who moves about in the exam room without difficulties and appears comfortable while seated. Sitting pressures poor and standing posture is good. Examination of the low back in the standing position reveals a reduced lumbar lordosis and there is not a lateral shift of the lumbar spine on the pelvis. Active range of motion of the lumbar spine islimited to 110?? flexion and 20?? extension. The symptoms are reproduced with midline extension. Gait is unremarkable. She is able to heel/toe walk and squat fully. Slouched sitting compared to sitting fully erect had no effect on the pain. Repeated movement testing of the lumbar spine revealed a clear directional preference toward flexion. Physical Therapy Assessment: Ms. Dickerson is a woman with a 2 month history of leg symptoms which haveimproved significantly over the past 2-3 weeks. The physical exam today is significant for reduced range of motion of the lumbar spine into extension, reproduction of symptoms with extension, and a directional preference toward flexion with movement testing. The history and exam is consistent with s ymptomatic spinal stenosis. I believe that these deficits can improve with physical therapy treatments directed to the low back consisting of instruction in mechanical self-care and self mobilizationexercises. Ms. Dickerson has a good rehabilitation potential and I anticipate to meet with her today only since her symptoms are resolving. Treatment Plan: The natural history of spinal stenosis and rational for exercise based treatment was reviewed. Ms. Dickerson was given a home exercise program consisting of flexion in lying, trunk rotation in supine, pelvic tilt, bridging, and iliopsoas stretching and a lunging position in the morning and at bedtime. In addition, I reviewed self-care strategies such as flexion in lying, flexion in sitting, flexion in standing, ana pose, posterior pelvic tilt while standing, leaning against the wall, perching, placing the foot on a step, and walking with trekking poles as needed throughout the day to relieve the pain. Along with the prescribed exercises, we discussed the principles of symptomself monitoring and posture correction. She will call with any questions, concerns, or if the pain worsens. Ms. Dickerson will [facility] to [facility] for a follow up appointment as needed only. 50 minutes were spent interviewing, assessing, and instructing Em Dickerson in a home exercise program. documented in this encounter Plan of Treatment Not on file documented as of this encounter Visit Diagnoses Diagnosis Stenosis of lateral recess of lumbar spine- Primary Spinal stenosis, lumbar region, without neurogenic claudication documented in this encounter Care Teams Cane Flume Watchman Relationship Specialty Start Date End Date Tank Lazaro APRN PCP - General 09/10/11 12/27/14 documented as of this encounter
--- OUTSIDE RECORDS SUMMARY | 2023-12-30 18:43 | XMS_ITS | Encounter Summary ---
Author Organization [facility] Address [facility] [place] [address] Care Team Providers Care Hook Up Driver Name Role Phone Tawanna Kelly APRN Primary Care Provider [phone] Encounter Details Date Type Department Care Team (Late st Contact Info) Description 07/31/2016 Telephone Dermatology Mohs at [address] [address] Madai Jarquin Social History Tobacco Use Types Packs/Day Years Used Date Smoking Tobacco: Never Smokeless Tobacco: Never Sex and Gender Information Value Date Recorded Sex Assigned at Not on file Gender Identity Not on file Sexual Orientation Not on file documented as of this encounter Miscellaneous Notes * Telephone Encounter - Madai Jarquin - 07/31/2016 10:28 AM EDT Spoke with patient regarding setting up her slow mohs procedure with Dr. Segovia in [place]. Pt has decided to have slow mohs done at [facility] due to travel reasons. I informed patient that I would let Dr. Segovia and Josiane know her decision. documented in this encounter Plan of Treatment Not on file documented as of this encounter Visit Diagnoses Not on filedocumented in this encounter Care Teams Hook Up Driver Relationship Specialty Start Date End Date Tawanna Kelly APRN [address] [facility] [place] [address] PCP - General Family Medicine 07/17/16 02/26/17 documented as of this encounter
--- OUTSIDE RECORDS SUMMARY | 2023-12-30 18:43 | XMS_ITS | Encounter Summary ---
Author Organization [facility] Address [facility] [place] [address] Care Team Providers Care Bearing Grinder Name Role Phone Tank Lazaro APRN Primary Care Provider [phone] Encounter Details Date Type Department Care Team (Latest Contact Info) Description 09/21/2011 9:38 AM EDT - 09/21/2011 11:59 PM EDT Hospital Encounter XRay at [address] [place] [address] CLINIC, DR LASHAE Peter, Damir Roth MD [facility] [place] [address] Claudication leg paresthesias; Stenosis of lateral recess of lumbar spine [...] Procedure Name Priority Date/Time Associated Diagnosis Comments XR PELVIS AND HIP BILAT (GENERIC) Routine 09/21/2011 9:56 AM EDT Peripheral vascular disease, unspecified Spinal stenosis, lumbar region, without neurogenic claudication documented in this encounter Results * XR PELVIS 1 VIEW & HIPS 1 VIEW EACH (09/21/2011 9:56 AM EDT) Anatomical Region Laterality Modality Pelvis, Hip Bilateral Radiographic Kristina ging 09/21/2011 9:56 AM EDT Narrative 09/21/2011 12:38 PM EDT PELVIS AND BOTH HIPS, 09/21/11: HISTORY: ??Groin and leg pain. ?? FINDINGS: ?? PELVIS: ??Severe degenerative changes of the lower lumbar spine are present. There are mild degenerative changes of both SI joints. Stool overlying the sacrum makes visualization of the inferior sacrum difficult. No obvious abnormalities present. There are mild degenerative changes of both hip joints with subchondral sclerosis in the superior joint spaces bilaterally. No fracture or dislocation. Bone density is within normal limits. Procedure Note Letty Cordero MD - 09/21/2011 PELVIS AND BOTH HIPS, 09/21/11: HISTORY: Groin and leg pain. FINDINGS: PELVIS: Severe degenerative changes of the lower lumbar spine arepresent. There are mild degenerative changes of both SI joints. Stool overlying the sacrum makes visualization of the inferior sacrum difficult. No obvious abnormalities present. There are mild degenerative changes of both hipjoints with subchondral sclerosis in the superior joint spaces bilaterally. No fracture or dislocation. Bone density is within normal limits. Damir Peter MD IMG DX ORDERABLES documented in this encounter Visit Diagnoses Diagnosis Claudication leg paresthesias Peripheral vascular disease, unspecified Stenosis of lateral recess of lumbar spine Spinal stenosis, lumbar region, without neurogenic claudication documented in this encounter Care Teams Bearing Grinder Relationship Specialty Start Date End Date Tank Lazaro APRN PCP - General 09/10/11 12/27/14 documented as of this encounter
--- OUTSIDE RECORDS SUMMARY | 2023-12-30 18:43 | XMS_ITS | Encounter Summary ---
Author Organization [facility] [place] [address] Care Team Providers Care Research Hydrologist Name Role Phone Tank Vallejo APRN Primary Care Provider [phone] Encounter Details Date Type Department Care Team (Latest Contact Info) Description 09/17/2011 2:56 PM EDT - 09/17/2011 11:59 PM EDT [place] [id number] CLINIC, DR LASHAE Denson, Maco Lemos MD [address] [place], [place] [id number] Discharge Disposition: Home Social History Tobacco Use Types Packs/Day Years Used Date Smoking Tobacco: Never Assessed Sex and Gender Information Value Date Recorded Sex Assigned at Not on file Gender Identity Not on file Sexual Orientation Not on file documented as of this encounter Progress Notes * Nita Christie RN - 09/13/2011 3:06 PM EDT VIR MRI PRE-SEDATION ASSESSMENT NOTE NAME: Em Dickerson AGE: 61 y.o. : 1950 (home) Female PCP PHONE OPERATOR TANK VALLEJO APRN None Allergies Allergen Reactions ??? Iodine-iodine Containing CIS - Anaphylaxis ??? Penicillins CIS - Hives ??? Nitrofurantoin CIS - Unknown HEIGHT WEIGHT Date/Time of call: September 13, 2011/3:07 PM/ PREVIOUS MRI SCAN? Yes SCHEDULED SCAN: MRI lumbar Spine SUBJECTIVE: the last one that I had they gave me a pill. It worked just fine. I hate closed in spaces. ASSESSMENT: PLAN: PRIOR SCAN DATE/S SEDATION TYPE SUCCESSFUL 09/17/2011 lumbar spine MRI PO Lorazepam 1.5 mg PT WILL ARRIVE 1 HR. BEFORE SCHEDULED SCAN AND HAVE A KINDERGARTEN TEACHER AVAILABLE. PT STATED TO PIGMENT PUMPER THAT THE SEDATION WAS EFFECTIVE FOR SCAN: Y__xx___N COMMENTS:___Feet first in large bore scanner documented in this encounter Miscellaneous Notes * Miscellaneous - Provider, Scanning - 10/03/2011 10:00 AM EDT documented in this encounter Plan of Treatment Not on file documented as of this encounter Procedures Procedure Name Priority Date/Time Associated Diagnosis Comments MRI LUMBAR SPINE WITHOUT CONTRAST Routine 09/17/2011 4:51 PM EDT documented in this encounter Results * MRI LUMBAR SPINE WITHOUT CONTRAST (09/17/2011 4:51 PM EDT) Anatomical Region Laterality Modality L-spine Magnetic Resonan ce 09/17/2011 4:51 PM EDT Addenda Addendum on 09/20/2011 4:44 PM EDT Addendum Begins Addendum done for administrative purposes Addendum Ends Addendum on 09/18/2011 10:05 AM EDT Addendum Begins Addendum done for administrative purposes Addendum Ends Narrative 09/17/2011 5:06 PM EDT Examination MR Lumbar Spine WO Clinical History F/U ON XRAY SHOWING DEGENERATIVE DISC DISEASE OF L-SPINE Comparison None Technique MRI of the lumbar spine performed without the use of intravenous contrast. Findings There is mild dextro convex curvature of the lumbar spine centered at the L4 level. Alignment is otherwise normal. ??There are no aggressive marrow lesions. ?? The normal-appearing conus terminates at the L1-L2 level. ??The visualized retroperitoneum is normal. Findings a specific levels: L1-L2: ??No central canal or neural foraminal narrowing. L2-L3: ??There is degenerative signal changes within the disc with annular fissure and mild disc bulge. ??There is no central canal or neural foraminal narrowing. L3-L4: ??Bilateral facet arthropathy is present. ??There is disc bulging. ??No significant central canal or neural foraminal narrowing is present. L4-L5: ??Disc degenerative changes are present, more pronounced on the left than on the right with associated reactive marrow changes. ??Combination of disc bulge, facet arthropathy, and endplate proliferation cause mild left neural foraminal narrowing. ??There is no central canal narrowing. ??Disc bulge contacts the traversing right and left L5 nerve roots in the lateral recess. ??L5-S1: ?? There is bilateral facet arthropathy. ??No central canal or neural foraminal narrowing. Impression Multilevel lumbar spine degenerative changes most pronounced at L4-L5 as above. Procedure Note Ezequiel Morrison MD - 09/20/2011 Examination MR Lumbar Spine WO Clinical History F/U ON XRAY SHOWING DEGENERATIVE DISC DISEASE OF L-SPINE Comparison None Technique MRI of the lumbar spine performed without the use of intravenouscontrast. Findings There is mild dextro convex curvature of the lumbar spine centered at theL4 level. Alignment is otherwise normal. There are no aggressive marrowlesions. The normal-appearing conus terminates at the L1-L2 level. The visualized retroperitoneum is normal. Findings a specific levels: L1-L2: No central canal or neural foraminal narrowing. L2-L3: There is degenerative signal changes within the disc with annular fissure and mild disc bulge. There is no central canal or neuralforaminal narrowing. L3-L4: Bilateral facet arthropathy is present. There is disc bulging.No significant central canal or neural foraminal narrowing is present. L4-L5: Disc degenerative changes are present, more pronounced on the leftthan on the right with associated reactive marrow changes. Combination of disc bulge, facet arthropathy, and endplate proliferation cause mild leftneural foraminal narrowing. There is no central canal narrowing. Disc bulgecontacts the traversing right and left L5 nerve roots in the lateral recess.L5-S1: There is bilateral facet arthropathy. No central canal or neuralforaminal narrowing. Impression Multilevel lumbar spine degenerative changes most pronounced at L4-L5 asabove. Tank Vallejo APRN IMG MRI ORDERABLES documented in this encounter Visit Diagnoses Not on filedocumented in this encounter Administered Medications Inactive Administered Medications - up to 3 most recent administrations Medication Order MAR Action Action Date Dose Rate Site LORazepam (ATIVAN) tablet 1-2 mg 1-2 mg, Oral, ONCE, 1 dose, On 09/17/11 at 0000, Routine Given by Other 09/17/2011 3:17 PM EDT 1.5 mg documented in this encounter Care Teams Research Hydrologist Relationship Specialty Start Date End Date Tank Vallejo APRN PCP - General 09/10/11 12/27/14 documented as of this encounter
[2024-01-02 15:56] LABS: Lipoprotein (a) 163 nmol/L (<75)
== END 2023-12-30 18:35 | disposition home or self-care (01) ==
LOC: NCHCN 18:34
PROVIDERS: PCP Nurse Practitioner Family; Visit Provider Family Medicine
DX: I10 Essential (primary) hypertension (principal)
CPT/HCPCS: 80048; 80061; 83695; 84439; 84443

== ENCOUNTER 2024-05-05 12:16 | Outpatient (REF) | payer MEDICARE, SELFPAY ==
--- OUTSIDE RECORDS SUMMARY | 2024-05-05 12:18 | XMS_ITS | Encounter Summary ---
Author Organization [facility] Address [address] [place] [address] Care Team Providers Care Behavioral Health Clinician Name Role Phone Crystal Howell APRN Primary Care Provider [phone] Encounter Details Date Type Department Care Team (Late st Contact Info) Description 11/29/2022 Lab Requisition [facility] Pathology & Laboratory Medicine - [facility] [address] [place] [address] Outr Resulting Lab, Provider Social History Tobacco Use Types Packs/Day Years Used Date Smoking Tobacco: Never Smokeless Tobacco: Never Interpersonal Safety Answer Date Record ed Physically Hurt Never 12/08/2019 Verbally Threaten Not on file 12/08/2019 Comments Unknown Sex and Gender Information Value Date Recorded Sex Assigned at Not on file Legal Sex Female 17:24 EST Gender Identity Not on file Sexual Orientation Not on file documented as of this encounter Functional Status * Because of a physical, mental, or emotional condition, does this person have difficulty doing errands alone such as visiting a doctor's office or shopping? Answer Date of Assessment Author No 01/15/2017 12:36 EDT documented as of this encounter Mental Status * Because of a physical, mental, or emotional condition, does this person have serious difficulty concentrating, remembering, or making decisions? Answer Entry Date Author No 01/15/2017 12:36 EDT documented in this encounter Plan of Treatment Not on file documented as of this encounter Procedures Procedure Name Priority Date/Time Associated Diagnosis Comments LYME AB Routine 11/28/2022 15:00 EDT documented in this encounter Results * LYME AB (11/28/2022 15:00 EDT) Lyme Ab Negative Negative 11/30/2022 11:45 EDT [facility] Blood VENOUS BLOOD / Unknown 11/28/2022 15:00 EDT 11/29/2022 18:19 EDT us Provider Outr Resulting Lab IMMUNOLOGY AND SEROL OGY ORDERABLES Final Result [facility] [address] [place] [address] documented in this encounter Visit Diagnoses Not on filedocumented in this encounter Care Teams Behavioral Health Clinician Relationship Specialty Start Date End Date Crystal Howell APRN [address] [place] [address] PCP - General 07/18/17 documented as of this encounter
--- OUTSIDE RECORDS SUMMARY | 2024-05-05 12:18 | XMS_ITS | Encounter Summary ---
Author Organization [facility] Address [address] [place] [address] Care Team Providers Care Administrative Support Manager Name Role Phone Mariam Hernandez MD Primary Care Provider [phone] Reason for Visit * Reason Onset Date Comments Wound Care 04/19/2017 wound instructio ns/suture removal kit Encounter Details Date Type Department Care Team (Late st Contact Info) Description 04/19/2017 Telephone [facility] Dermatology 3rd Floor [facility] [address] [place] [address] Mervat Melo MD PhD [address] [place] [address], [facility] [address] [place] [address] Wound Care (wound instructions/suture removal kit) Social History Tobacco Use Types Packs/Day Years Used Date Smoking Tobacco: Never Smokeless Tobacco: Never Comments Unknown Sex and Gender Information Value [...] 01/15/2017 12:36 EDT documented in this encounter Miscellaneous Notes * [...] Telephone Encounter - Rahel Werner - 04/19/2017 1451 EST Patient has a question as to when the stitches come out. Patient is requesting suture removal kit be mailed to her. Please call. documented in this encounter Plan of Treatment Not on file documented as of this encounter Visit Diagnoses Not on filedocumented in this encounter Care Teams Administrative Support Manager Relationship Specialty Start Date End Date Mariam Hernandez MD [address] [place] [address] PCP - General 01/04/17 07/17/17 documented as of this encounter
--- OUTSIDE RECORDS SUMMARY | 2024-05-05 12:18 | XMS_ITS | Encounter Summary ---
Author Organization [facility] Address [address] [place] [address] Care Team Providers Care Appraiser Oil And Water Name Role Phone Mariam Hernandez MD Primary Care Provider [phone] Reason for Visit * Reason Comments Follow-up h/o MM Skin Exam FBSE Skin Lesion s/p MOHS on left lavern ek, patient reporting patel colored skin Encounter Details Date Type Department Care Team (Late st Contact Info) Description 04/19/2017 13:00 EST Office Visit [facility] Dermatology 3rd Floor [address] [address] Mervat Melo MD PhD [address] [place] [address], [address] [place] [address] Neoplasm of uncertain behavior [...] 01/15/2017 12:36 EDT documented in this encounter Discharge Diagnoses Diagnosis 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 DISCOMFORT: Extra-Strength Tylenol, as directed by painting worker, usually relieves any pain you may have. [...] I meningioma which she had excised at [facility]. She is doing very well with [...] PATIENT : Em Dickerson : MRN: [id number] SURGEON: Mervat Melo MD 04/19/2017 13:27 The [...] may reflect changes made after this encounter. levETIRAcetam (KEPPRA) 250 mg tablet Take 250 mg by mouth daily. added in this encounter Care Teams Appraiser Oil And Water Relationship Specialty Start Date End Date Mariam Hernandez MD [address] [place] [id number] PCP - General 01/04/17 07/17/17 documented as of this encounter
--- OUTSIDE RECORDS SUMMARY | 2024-05-05 12:18 | XMS_ITS | Encounter Summary ---
Author Organization [facility] Address [address] [place] [address] Care Team Providers Care University Demonstrator Name Role Phone Mariam Hernandez MD Primary Care Provider [phone] Reason for Visit * Reason Onset Date Comments Biopsy Results 04/25/2017 Encounter Details Date Type Department Care Team (Late st Contact Info) Description 04/25/2017 Telephone [facility] Dermatology 3rd Floor [facility] [address] [place], [place] [id number] Mervat Melo MD PhD [address] [place] [address], [address] [place] [address] Biopsy Results Social History Tobacco [...] Rain 04/25/2017 13:31 * Telephone Encounter - Jeanie Cleary - 04/25/2017 1308 EST Patient calling to see if biopsy results are in yet? Please call. documented in this encounter Plan of Treatment Not on file documented as of this encounter Visit Diagnoses Not on filedocumented in this encounter Care Teams University Demonstrator Relationship Specialty Start Date End Date Mariam Hernandez MD [address] [place] [address] PCP - General 01/04/17 07/17/17 documented as of this encounter
--- OUTSIDE RECORDS SUMMARY | 2024-05-05 12:18 | XMS_ITS | Encounter Summary ---
Author Organization [facility] Address [address] [place] [address] Care Team Providers Care Sports Commentator Name Role Phone Crystal Howell APRN Primary Care Provider [phone] Reason for Visit * Reason Comments Follow-up h/o MMIS Skin Exam FBSE Encounter Details Date Type Department Care Team (Late st Contact Info) Description 07/19/2017 15:20 EDT Office Visit [facility] Dermatology 3rd Floor [address] [address] Mervat Melo MD PhD [address] [place] [address], [facility] [address] [place] [address] Sun-damaged skin (Primary Dx); History [...] 01/15/2017 12:36 EDT documented in this encounter Patient Instructions * Patient Instructions* Mervat Melo MD - 07/19/2017 15:20 EDT Wear sunscreen daily regardless of weather or activities (cloudy and yemi days). Recommended sunscreens: at least spf 30 For the environmentally friendly: [id number] For dry skin: Moses MODI UV Elements For ultra-sensitive skin: Vanicream free and clear sunscreen For Kids or ultrasensitive skin: Titanium dioxide and zinc oxide--Vanicream free and clear sunscreen, [place] unscented or Blue Lizard Other: ColoreScience Sunforgettable powder, Solbar or BullFrog gel, Men Expert Hydra Energetic After Shave [place], [place] bar soap or body wash. For sprays: Do not inhale or get near an open flame. Even more important are hats and sun protective clothing with UPF. Sunprecautions, [place], J. Crew, Under [place] , O-Richi, ABG Accessories, Coolibar Sun umbrellas Other: Vitamins/supplements: -Heliocare -- Pills which provide some level of sunscreen -Niacinamide 500mg PO BID (aka nicotinamide) Izzy: Seamless Receipts - UV Index Check [email or web address] and consumer [...] I meningioma which she had excised at [facility]. She is doing very well and has [...] unspecified documented in this encounter Care Teams Sports Commentator Relationship Specialty Start Date End Date Crystal Howell APRN [address] [place] [address] PCP - General 07/18/17 documented as of this encounter
--- OUTSIDE RECORDS SUMMARY | 2024-05-05 12:18 | XMS_ITS | Encounter Summary ---
Author Organization [facility] Address [address] [place] [address] Care Team Providers Care Vending Machine Repairer Name Role Phone Crystal Howell APRN Primary Care Provider [phone] Reason for Visit * Reason Onset Date Comments Appointment Related 05/22/2021 called to seble hobson Encounter Details Date Type Department Care Team (Late st Contact Info) Description 05/22/2021 Telephone [facility] Ophthalmology - [facility] [address] [place], [place] [address] Kristen Faria MD [address] [facility], [address] [place] [address] Appointment Related (called to cancel) [...] on filedocumented in this encounter Care Teams Vending Machine Repairer Relationship Specialty Start Date End Date Crystal Howell APRN [address] [place] [address] PCP - General 07/18/17 documented as of this encounter
--- OUTSIDE RECORDS SUMMARY | 2024-05-05 12:18 | XMS_ITS | Encounter Summary ---
Author Organization [facility] Address [address] [place] [address] Care Team Providers Care Learning And Development Coordinator Name Role Phone Crystal Howell APRN Primary Care Provider [phone] Encounter Details Date Type Department Care Team (Late st Contact Info) Description 02/18/2020 Results Only Imaging [facility] [place] [facility] [address] [place] [address] Natalie Lennon, ANIMAL ASSISTED THERAPIST [address] [place] [address] Social History Tobacco Use Types [...] 12:0 0 EDT Narrative 02/18/2020 14:44 EDT *[facility]* *[facility]* [address] [place] [address] Stress Electrocardiography Alex protocol Date of study: [...] med stress test many years ago at [facility] in [place]. Does not remember why the test was [...] peak heart rate and blood pressure was 95143dk Hg/min. ??The patient experienced no chest pain [...] procedure. This study was interpreted by [facility]. ??Study status: ??Routine. ??Consent: ??The risks, [...] Note Blanco Byrnes MD - 02/18/2020 *[facility]* *[facility]* [address] [place] [id number] Stress Electrocardiography Alex protocol Date of study: [...] med stress test many years ago at [facility] in [place]. Does not remember why the test was [...] peak heart rate and blood pressure was 54511ft Hg/min. The patient experienced no chest pain [...] procedure. This study was interpreted by [facility]. Study status: Routine. Consent: The risks, [...] Electronically signed by Blanco Byrnes 02/18/2020 14:44 us Natalie Lennon ANIMAL ASSISTED THERAPIST CARDIAC NM ORDERABLES Final Result documented in this encounter Visit Diagnoses Not on filedocumented in this encounter Care Teams Learning And Development Coordinator Relationship Specialty Start Date End Date Crystal Howell APRN [address] [place] [address] PCP - General 07/18/17 documented as of this encounter
--- OUTSIDE RECORDS SUMMARY | 2024-05-05 12:18 | XMS_ITS | Encounter Summary ---
Author Organization [facility] Address [address] [place] [address] Care Team Providers Care Personnel Specialist Name Role Phone Mariam Hernandez MD Primary Care Provider [phone] Encounter Details Date Type Department Care Team (Late st Contact Info) Description 04/19/2017 Results Only [facility] Dermatology 3rd Floor [address] [address] Mervat Melo MD PhD [address] [place] [address], [address] [place] [address] Social History Tobacco Use Types [...] 01/15/2017 12:36 EDT documented in this encounter Progress Notes [...] ? HANNAH SINHA ? Accession #: ? [id number] ? : ? 1950 (Age: 67) ??F [...] moderate amount of cytoplasm. ??The melanocytes show plant equipment engineer maturation. SOX-10 ALK PHOS (EP268, EpitBonaYou) does not show evidence of well developed [...] performance characteristics have been determined by The . ??The positive and negative controls worked appropriately. [...] (ASCP) 04/22/2017 9:41 AM End of Report [facility] 04/19/2017 7:31 EST 04/19/2017 7:31 EST us Mervat Melo MD PhD PATHOLOGY ORDERABLES Cindy moore Result [facility] [address] [place] [address] documented in this encounter Visit Diagnoses Not on filedocumented in this encounter Care Teams Personnel Specialist Relationship Specialty Start Date End Date Mariam Hernandez MD [address] [place] [address] PCP - General 01/04/17 07/17/17 documented as of this encounter
--- OUTSIDE RECORDS SUMMARY | 2024-05-05 12:18 | XMS_ITS ---
Author Organization Unknown ALLERGIES AND ADVERSE REACTIONS No information ASSESSMENT No information CHIEF COMPLAINT No information MEDICATIONS No information OBJECTIVE DATA No information PHYSICAL EXAMINATION No information TREATMENT PLAN Planned Care Start Date Provider Encounter for Check-up [id number] PROBLEMS No information RESULTS No information REVIEW OF SYSTEMS No information SUBJECTIVE DATA No information VITAL SIGNS No information
--- OUTSIDE RECORDS SUMMARY | 2024-05-05 12:18 | XMS_ITS | Clinical Summary ---
Author Organization [facility] Address [address] [place] [address] Care Team Providers Care Toll Ticket Clerk Name Role Phone Crystal Howell APRN Primary Care Provider [phone] Allergies Active Allergy Reactions Criticality Noted Date Comments Iodine And Iodide Containing Products 08/23/2016 Nitrofurantoin Monohyd/M-Cryst 08/23 Penicillins Hives 08/23/2016 Medications DIAZepam (VALIUM) 5 mg tablet Take 1 tablet by mouth. 1 Tab 7 Active Additional Information Patient not taking.Reported on 08/30/2016 methylPREDNISol one (MEDROL) 32 mg tablet Take one pill [address] and one pill 1.[address] 2 Tab 7 Active Additional Information Patient not taking.Reported on 04/19/2017 DIAZepam (VALIUM) 5 mg tablet Take 1 tab 45 min prior to the procedure and repeat immediately before if needed 2 Tab 7 Active Additional Information Patient not taking.Reported on 04/19/2017 levETIRAcetam (KEPPRA) 250 mg tablet Take 250 mg by mouth daily. Active Active Problems Problem Noted Date Diagnosed Date Meningioma ([facility]) 01/15/2017 Surgical History Surgery Date Site/Laterality Comments [...] Last Done Comments Hepatitis C Screen 1950 Fall Risk Screening 2013 RSV Immunization ( o r 60+ Years) (1 - 1-dose 75+ series) 2023 COVID-19 Vaccine (2023- season) 2024 Insurance [employer] MEDICARE BCBS MEDICARE Care Teams Toll Ticket Clerk Relationship Specialty Start Date End Date Crystal Howell APRN [address] [place] [address] [facility] - General 07/18/17
--- OUTSIDE RECORDS SUMMARY | 2024-05-05 12:18 | XMS_ITS | Referral Summary ---
Author Organization [facility] Address [address] [place] [address] Care Team Providers Care Car Mechanic Name Role Phone Crystal Howell APRN Primary Care Provider [phone] Allergies Active Allergy Reactions Criticality Noted Date [...] Problems Problem Noted Date Diagnosed Date Meningioma ([facility]) 01/15/2017 Social History Tobacco Use Types Packs/Day [...] Index 24.64 01/15/2017 1236 EDT Functional Status * Because of a physical, mental, or emotional condition, does this person have difficulty doing errands alone such as visiting a doctor's office or shopping? Answer Date of Assessment Author No 01/15/2017 12:36 EDT Mental Status * Because of a physical, mental, or emotional condition, does this person have serious difficulty concentrating, remembering, or making decisions? Answer Entry Date Author No 01/15/2017 12:36 EDT Plan of Treatment Not on file Insurance [facility] [place] [address] [facility] MEDICARE Care Teams Car Mechanic Relationship Specialty Start Date End Date Crystal Howell APRN [address] [place] [address] [facility] - General 07/18/17
--- OUTSIDE RECORDS SUMMARY | 2024-05-05 12:18 | XMS_ITS | Encounter Summary ---
Author Organization [facility] Address [address] [place] [address] Care Team Providers Care Shirt Bander Name Role Phone Crystal Howell APRN Primary Care Provider [phone] Encounter Details Date Type Department Care Team (Late st Contact Info) Description 05/12/2021 Transcribe Orders [facility] Non-Invasive Cardiology [address] [place] [address] Crystal Howell APRN [address] [address] Social History Tobacco Use Types Packs/Day Years [...] on filedocumented in this encounter Care Teams Shirt Bander Relationship Specialty Start Date End Date Crystal Howell APRN [address] [place] [address] PCP - General 07/18/17 documented as of this encounter
--- OUTSIDE RECORDS SUMMARY | 2024-05-05 12:19 | XMS_ITS | Encounter Summary ---
Author Organization [facility] Address [address] [place] [address] Care Team Providers Care Glass Ribbon Machine Operator Assistant Name Role Phone Unavailable Primary Care Provider Unavailabl e Encounter Details Date Type Department Care Team (Late st Contact Info) Description 02/13/2005 Results Only [facility] - Maple conversion [address] [place] [address] Margarita Colorado, [facility] [address] [place] [phone] Social History Tobacco Use Types Packs/Day Years Used Date Smoking Tobacco: Never Assessed Comments Unknown Sex and Gender Information Value [...] ? HANNAH DICKERSON ? Accession #: ? [id number] : ? 1950 (Age: 54) ??F ?Collect Date: ? 02/13/2005 Location: ? [facility] ? Receive Date: ? 02/15/2005 Provider: ?MARGARITA COLORADO INSTRUMENTATION CONTROLS ENGINEER Copy to: ? Specimen/Source: ?ThinPrep Pap Test, Cervix/Endocervix, processed on Nuubo ThinPrep Imaging System, with manual evaluation Last [...] End of Report [facility] 02/13/2005 02/15/2005 us Margarita Colorado INSTRUMENTATION CONTROLS ENGINEER PATHOLOGY ORDERABLES Final R esult [facility] [address] [place] [address] documented in this encounter Visit Diagnoses Not on filedocumented in this encounter
--- OUTSIDE RECORDS SUMMARY | 2024-05-05 12:19 | XMS_ITS | Encounter Summary ---
Author Organization [facility] Address [address] [place] [address] Care Team Providers Care Plans Examiner Name Role Phone Unavailable Primary Care Provider Unavailabl e Encounter Details Date Type Department Care Team (Late st Contact Info) Description 09/14/1999 Results Only [facility] - Maple conversion [address] [place] [address] Radha Nunez, MOLDER OPERATOR Social History Tobacco Use Types Packs/Day [...] ? HANNAH DICKERSON ? Accession #: ? [id number] : ? 1950 (Age: 49) ??F ?Collect Date: ? 09/14/1999 Location: ?Receive Date: ? 09/14/1999 Provider: ?RADHA Mcwilliams UZIEL MOLDER OPERATOR Copy to: ?RADHA Oj UZIEL MOLDER OPERATOR ? Specimen/Source: ?Ap Operator ThinPrep Last Menstrual Period: ? GYNECOLOGIC ??CYTOPATHOLOGY ??REPORT Name: HANNAH DICKERSON ? [facility] : 1950 ?? 49Y F ?Client ID: [id number] SS#: [id number] ? Clinician: SHIRA NUNEZ NP ?? Location: [facility] ??Copy to: ?? Specimen: ?Ap Operator ThinPrep ? Source: Cervix/Endocervix ?Collected: 09/11/99 ? [...] Lim, CT(ASCP) ? Report Date: ?? 09/18/1999 [employer] Archived Tests - Final Diagnosis Text Field: Clinical History : ? Document reviewed and electronically signed by: ? Conversion ? Report Date: ??09/18/1999 00:00 End of Report [facility] 09/14/1999 8:13 EDT 09/14/1999 8:14 EDT us Radha Nunez MOLDER OPERATOR PATHOLOGY ORDERABLES Final Re sult [facility] [address] [place] [address] documented in this encounter Visit Diagnoses Not on filedocumented in this encounter
--- OUTSIDE RECORDS SUMMARY | 2024-05-05 12:19 | XMS_ITS | Encounter Summary ---
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 I performed the above scribed service and agree with the accuracy of the documentation in this encounter. Reviewed and signed by: Aubree Holland MD Dermatology [facility] documented in this encounter Plan of Treatment Upcoming Encounters Date Type Department Care Team (Late st Contact Info) Description 05/15/2024 12:50 PM EST [place] [address] Goldie Maloney MD [address] [place] [address] 05/15/2024 1:50 PM [place] [address] Goldie Maloney MD [address] [place], [place] [address] documented as of this encounter Visit Diagnoses [...] unspecified documented in this encounter Care Teams Shingle Trimmer Relationship Specialty Start Date End Date Crystal Howell APRN [address] [place] [address] PCP - General Family Medicine 02/27/17 documented as of this encounter
--- OUTSIDE RECORDS SUMMARY | 2024-05-05 12:19 | XMS_ITS | Encounter Summary ---
Author Organization [facility] Address [address] [place] [address] Care Team Providers Care Cotton Puller Name Role Phone Unavailable Primary Care Provider Unavailabl e Encounter Details Date Type Department Care Team (Late st Contact Info) Description 04/07/2014 Results Only [facility] Laboratory Services - [facility] [place] [address] [place] [address] Radha Nunez, SUSANA Social History [...] ? HANNAH DICKERSON ? Accession #: ? [id number] : ? 1950 (Age: 63) ??F ?Collect Date: ? 04/07/2014 Location: ? [facility] ? Receive Date: ? 04/08/2014 Provider: ?RADHA NUNEZ HOT WORKER Copy to: ?MARY ELLEN RIZO HOT WORKER ? Specimen/Source: ?Pap Test, Cervix/Endocervix, ThinPrep Imaging System with manual evaluation Last Menstrual Period: ? 1996 ? SPECIMEN ADEQUACY ? Satisfactory for Evaluation - transformation zone component present GENERAL CATEGORIZATION ? Negative for Intraepithelial Lesion or Malignancy ? Document reviewed and electronically signed by: ? GRIS Torres(ASCP) ? Report Date: ??04/13/2014 08:03 End of Report [facility] 04/07/2014 04/08/2014 us Radha Nunez NP PATHOLOGY ORDERABLES Final Re sult [facility] [address] [place] [address] documented in this encounter Visit Diagnoses Not on filedocumented in this encounter
--- OUTSIDE RECORDS SUMMARY | 2024-05-05 12:19 | XMS_ITS | Encounter Summary ---
Author Organization [facility] Address [address] [place] [address] Care Team Providers Care Renewable Energy Project Manager Name Role Phone Tawanna Kelly NELLIE Primary Care Provider [phone] Reason for Visit * Reason Comments Melanoma left cheek Encounter Details Date Type Department Care Team (Late st Contact Info) Description 08/23/2016 8:00 EDT Office Visit [facility] Dermatology [address] [address] Thai Mcqueen MD [address] [place] [address], [address] [place] [address] Melanoma in situ of cheek [...] - documented in this encounter Functional Status * Because of a physical, mental, or emotional condition, does this person have difficulty doing errands alone such as visiting a doctor's office or shopping? Answer Date of Assessment Author No 08/23/2016 7:57 EDT documented as of this encounter Mental Status * Because of a physical, mental, or emotional condition, does this person have serious difficulty concentrating, remembering, or making decisions? Answer Entry Date Author No 08/23/2016 7:57 EDT documented in this encounter Discharge Diagnoses Diagnosis D03.39 Melanoma [...] have one), and don't bend over to garbage pick up man objects or tie shoes for a few [...] rapidly swells. CONTACT INFORMATION: To reach the soil fertility extension specialist physician: During office hours: 8:00 am - 5:00 PM Saturday through Saturday ? Call:?? [phone] ? Ask to speak with a surgery nurse AFTER HOURS/WEEKENDS/HOLIDAYS:?First call Dr. Thai Mcqueen's cell phone: [phone]; if unable to reach Dr. Mcqueen, Call [phone] for the MOHS surgeon soil fertility extension specialist. WOUND CARE INSTRUCTIONS for ONE WEEK AFTER [...] in this encounter Ordered Prescriptions Prescription Sig Dispense Quantity Refills Last Filled Start Date End Date DIAZepam (VALIUM) 5 mg tablet Take 1 tablet by mouth. 1 Tab 08/23/2016 documented in this encounter Discharge Disposition Disposition Code Departure Means Destination Auto Discharge documented in this encounter Progress Notes * Thai Mcqueen MD - 08/27/2016 1031 EDT Shannon, please let her know that the central portion that was sent to the lab showed the same thing-just preinvasive melanoma. No evidence of anything worse and it was completely removed with Mohs and needs no other treatment. Please ask her how she is healing as well. Thanks, Thai Mcqueen MD * Mariangel Hill MD - 08/23/2016 0800 EDT Images from the original note were not included. MOHS EVALUATION NOTE Chief Complaint Patient presents with ??? Melanoma left cheek Subjective: Hannah Sinha is a 66 y.o. year old [...] elsewhere. For thatreason, followup with provider at [facility] (pt prefers to switch care here), for ongoing skin surveillance examinations, after surgery, will be imperative. The patient has been scheduled to undergo surgery today. Note: Valium 5mg prescribed today for procedure. MOHS OPERATIVE REPORT USING MART-1 IMMUNOSTAINS Patient Name: Hannah Sinha Date of Service: August 23, 2016 Surgeon: Thai Mcqueen MD Marzipan Molder: Mariangel Hill MD; Jackson Hickey MD Case [...] were mapped and handed personally to the roof technician for frozen sectioning. The tissue was [...] reagents' performance characteristics have been determined by [facility]. This laboratory is certified under the Clinical Laboratory Improvement Amendments of 1988 (CLIA-88) as qualified to perform high complexity clinical laboratory testing. Repair: COMPLEX REPAIR Patient Information: Hannah Sinha 66 y.o. female Referring Provider: Tal Cha Surgeon: Thai Mcqueen MD Marzipan Molder: Jackson Hickey MD; Mariangel Hill MD Preoperative [...] the operative procedure and immediately available throughout. Thai Mcqueen MD MOHS SURGERY - POSTOP SUMMARY for MOHS with MART-1 IMMUNOSTAINS Hannah Sinha is a 66 y.o. year old [...] follow up with either a provider at [facility] or [facility] (she prefers to transfer care to [facility]) for her annual skin examinations. I thank Dr. Cha for involving me in this nice patient's care. Thai Mcqueen MD Dermatology & Mohs Instrument SterilizerIc Designer Gate Arraysnewsagent, Dermatology Division [facility] 08/23/2016 documented in this encounter Plan of Treatment Scheduled Orders Name Type Priority Associated Diagnoses Orde r Schedule SURGICAL PATHOLOGY- ORDER ONLY Pathology Routine Melanoma in situ of cheek (CMS-HCC) ([facility]) Ordered: 08/23/2016 documented as of this encounter [...] when reading/interpret ing unformatted reports. Name: ? HANNAH SINHA ? Accession #: ? [id number] ? : ? 1950 (Age: 66) ??F ? Collect Date: ? 08/23/2016 ? Location: ? [facility] ? Receive Date: ? 08/23/2016 ? Provider: THAI MCQUEEN MD Copy to: MARIANGEL HILL MD [...] the time of Mohs micrographic surgery. ??(Dr. Flores)/ljn Document reviewed and electronically signed by: RAMONA [...] serially sectioned and entirely submitted in 1-3. 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
--- OUTSIDE RECORDS SUMMARY | 2024-05-05 12:19 | XMS_ITS | Encounter Summary ---
Author Organization [facility] Address [address] [place] [address] Care Team Providers Care Auditor Medical Claims Name Role Phone Mariam Hernandez MD Primary Care Provider [phone] Reason for Visit * Reason Onset Date Comments Appointment Related 01/16/2017 Encounter Details Date Type Department Care Team (Late st Contact Info) Description 01/16/2017 Telephone [facility] - [address] [phone] Alex Aldridge MD [address] [place] [address], [address] [place] [address] Appointment Related Social History Tobacco [...] * Telephone Encounter - Krystin Owens - 01/16/2017 1131 EDT LM for Em with the following appointment details: - [facility] [place] Check in at 1pm at registration MRI at 1:45pm 03/05/17 - [facility] [place] Appointment at 10:45pm with Dr. Aldridge Check in at registration at 12:30pm CT at 1pm Advised Em to contact our office if she has any questions or needs to reschedule. documented in this encounter Plan of Treatment Not on file documented as of this encounter Visit Diagnoses Not on filedocumented in this encounter Care Teams Auditor Medical Claims Relationship Specialty Start Date End Date Mariam Hernandez MD [address] [place] [address] PCP - General 01/04/17 07/17/17 documented as of this encounter
--- OUTSIDE RECORDS SUMMARY | 2024-05-05 12:19 | XMS_ITS | Encounter Summary ---
Author Organization [facility] [place] [address] Care Team Providers Care Associate Material Handler Name Role Phone Crystal Howell APRN Primary Care Provider [phone] Reason for Referral * Diagnostic Test (Routine) - Closed Specialty Diagnoses / Procedures Referred By Contac t Referred To Contact Radiology Diagnoses Paresthesias Procedures MRI Lumbar Spine wo Contrast (Generic) Mariam Hernandez MD [address] [place] [address] [place] [address] Referral ID Status Reason Start Date Expiration Date V isits Requested Visits Authorized [id number] Closed Specialty Service Requested 03/14/2023 09/11/2024 1 1 Reason for Visit * Diagnostic Test (Routine) - Closed Specialty Diagnoses / Procedures Referred By Contac t Referred To Contact Radiology Diagnoses Paresthesias Procedures MRI Lumbar Spine wo Contrast (Generic) Mariam Hernandez MD [address] [place] [address] [place] [address] Referral ID Status Reason Start Date Expiration Date V isits Requested Visits Authorized [id number] Closed Specialty Service Requested 03/14/2023 09/11/2024 1 1 Encounter Details Date Type Department Care Team (Latest Contact Info) Description 03/15/2023 2:37 PM EST Hospital [place] [address] Mariam Hernandez MD [address] [place] [address] Paresthesias Discharge Disposition: Home Social History Tobacco [...] End Date fluticasone propionate (FLONASE) 50 mcg/actuation [place], Suspension SHAKE LIQUID AND USE 1 SPRAY IN EACH NOSTRIL TWICE DAILY 11/15/2020 HERBAL DRUGS ORAL Take 2 tablets by mouth nightly as needed. Actually take CBD Oil 09/17/2023 documented as of this encounter Progress Notes * Nayla Hernandez RN - 03/14/2023 11:48 AM EST MRI PRE-SEDATION ASSESSMENT NOTE NAME: Em Dickerson AGE: 72 y.o. : 1950 [address] [facility] [address] Female [phone] (home) Telephone Information: Crystal Howell APRN No primary care provider on file. Allergies Allergen Reactions Iodine And Iodide Containing Products Anaphylaxis Penicillins Hives Macrobid [Nitrofurantoin Monohyd/M-Cryst] Nitrofurantoin Other (See Comments) Stomach upset Date/Time of call: March 14, 2023/11:49 AM/ SCHEDULED SCAN: MRI LUMBAR SPINE WITHOUT CONTRAST [[id number]] HEIGHT: WEIGHT: Have you had a PREVIOUS [...] tolerated with Valium) You must have a cdl dedicated truck driver present when you check in. This patient has been informed that they require a cdl dedicated truck driver to drive them home after this procedure. In the absence of a cdl dedicated truck driver, IR will not be able tosedate for your scan. Pt verbalized understanding of these instructions during the pre-procedure education via phone. Yes Name of cdl dedicated truck driver: Rob Allison (Partner) Phone number: [...] 12:50 PM EST [place] [address] Goldie Maloney MD [address] [place] [phone] 05/15/2024 1:50 PM [place] [address] Goldie Maloney MD [address] [place] [phone] documented as of this encounter Procedures Procedure Name Priority Date/Time Associated Diagnosis Comments MRI LUMBAR SPINE WITHOUT CONTRAST Routine 03/15/2023 4:41 PM EST Paresthesias documented in this encounter Results * MRI Lumbar Spine wo Contrast (Generic) (03/15/2023 4:41 PM EST) Anatomical Region Laterality Modality L-spine Magnetic Resonan ce Impressions 03/17/2023 9:46 AM EST Ppot-do-uttlklmd degenerative changes as outlined above. Comment: The [...] who have questions please contact the health respiratory care faculty that requested your imaging first. ? Narrative 03/17/2023 9:46 AM EST EXAMINATION: MRI [...] significantcanal or foraminal stenosis. No herniation. IMPRESSION Rzdu-sv-srzshnaw degenerative changes as outlined above. Comment: The following findings are so common in people without low backpain that while we report their presence, they must be interpreted with cautionand in context of the clinical situation (Reference- Tkvik Et Al, [id number]). Findings: (Prevalence in patients without low back [...] patients who have questions please contactthe health respiratory care faculty that requested your imaging first. Mariam Hernandez [...] mg documented in this encounter Care Teams Associate Material Handler Relationship Specialty Start Date End Date Crystal Howell APRN [address] [place] [address] PCP - General Family Medicine 02/27/17 documented as of this encounter
--- OUTSIDE RECORDS SUMMARY | 2024-05-05 12:19 | XMS_ITS | Encounter Summary ---
Author Organization [facility] [place] [address] Care Team Providers Care Felter Tennis Balls Name Role Phone Crystal Howell APRN Primary Care Provider [phone] Reason for Visit * Diagnostic Test (Routine) - Closed Specialty Diagnoses / Procedures Referred By Haseeb messina Referred To Contact Radiology Diagnoses Paresthesias Procedures MRI Lumbar Spine wo Contrast (Generic) Mariam Hernandez MD [address] [place] [address] [place] [address] Referral ID Status Reason Start Date Expiration Date V isits Requested Visits Authorized [id number] Closed Specialty Service Requested 03/14/2023 09/11/2024 1 1 Encounter Details Date Type Department Care Team (Latest Contact Info) Description 03/15/2023 2:38 PM EST - 03/15/2023 11:59 PM EST Hospital [place] [address] Mariam Hernandez MD [address] [place] [address] Discharge Disposition: Home Social History [...] End Date fluticasone propionate (FLONASE) 50 mcg/actuation [place], Suspension SHAKE LIQUID AND USE 1 SPRAY IN EACH NOSTRIL TWICE DAILY 11/15/2020 HERBAL DRUGS ORAL Take 2 tablets by mouth nightly as needed. Actually take CBD Oil 09/17/2023 documented as of this encounter Plan of Treatment Upcoming Encounters Date Type Department Care Team (Late st Contact Info) Description 05/15/2024 12:50 PM EST Hospital Encounter MRI at [place] [id number] Goldie Maloney MD [address] [place] [phone] 05/15/2024 1:50 PM [place] [address] Goldie Maloney MD [address] [place] [phone] documented as of this encounter Procedures Procedure Name Priority Date/Time Associated Diagnosis Comments MRI LUMBAR SPINE WITHOUT CONTRAST Routine 03/15/2023 4:41 PM EST Paresthesias documented in this encounter Results * MRI Lumbar Spine wo Contrast (Generic) (03/15/2023 4:41 PM EST) Anatomical Region Laterality Modality L-spine Magnetic Resonan ce Impressions 03/17/2023 9:46 AM EST Smok-xs-agcivtpm degenerative changes as outlined above. Comment: The following findings are so common in people without low back pain that while we report their presence, they must be interpreted with caution and in context of the clinical situation (Reference- Sanjeev Et Al, Spine 2001). Findings: (Prevalence in [...] who have questions please contact the health career services coordinator that requested your imaging first. ? Electronically signed by: Lonnie Mcclendon MD, [facility] ([phone]), at 03/17/2023 9:46 AM Narrative 03/17/2023 9:46 [...] significantcanal or foraminal stenosis. No herniation. IMPRESSION Krki-iv-nqbkpywx degenerative changes as outlined above. Comment: The following findings are so common in people without low backpain that while we report their presence, they must be interpreted with cautionand in context of the clinical situation (Reference- [place] Et Al, [id number]). Findings: (Prevalence in patients without low back [...] patients who have questions please contactthe health career services coordinator that requested your imaging first. Mariam Hernandez MD IMG MRI ORDERABLES documented in this encounter Visit Diagnoses Not on filedocumented in this encounter Care Teams Felter Tennis Balls Relationship Specialty Start Date End Date Crystal Howell APRN [address] [place] [address] PCP - General Family Medicine 02/27/17 documented as of this encounter
--- OUTSIDE RECORDS SUMMARY | 2024-05-05 12:19 | XMS_ITS | Encounter Summary ---
Author Organization [facility] Address [address] [place] [address] Care Team Providers Care Advertising Assistant Name Role Phone Mariam Hernandez MD Primary Care Provider [phone] Reason for Visit * Reason Onset Date Comments Surgery Scheduling 02/21/2017 11.7 Encounter Details Date Type Department Care Team (Late st Contact Info) Description 02/21/2017 Telephone [facility] Neurosurgery - [facility] [address] [place], [place] [id number] Alex Aldridge MD [address] [place] [address], [address] [place] [address] Surgery Scheduling (11.7) Social History [...] 1240 EDT Reason for Call: Surgery Scheduling (.) Summary/Symptoms: Pt calling to cancel her surgery scheduled for . w Dr. Aldridge. Aleta Woody 02/21/2017 12:40 documented in this encounter Plan of Treatment Not on file documented as of this encounter Visit Diagnoses Not on filedocumented in this encounter Care Teams Advertising Assistant Relationship Specialty Start Date End Date Mariam Hernandez MD [address] [place] [address] PCP - General 01/04/17 07/17/17 documented as of this encounter
--- OUTSIDE RECORDS SUMMARY | 2024-05-05 12:19 | XMS_ITS | Encounter Summary ---
Author Organization [facility] Address [address] [place] [address] Care Team Providers Care Assembler Dry Cell And Battery Name Role Phone Mariam Hernandez MD Primary Care Provider [phone] Reason for Visit * Reason Onset Date Comments Medication Questions 02/05/2017 Encounter Details Date Type Department Care Team (Late st Contact Info) Description 02/05/[address] [id number] Alex Aldridge MD [address] [place] [address], [address] [place] [address] Medication Questions Social History Tobacco [...] 01/15/2017 12:36 EDT documented in this encounter Ordered Prescriptions Prescription [...] back and left voice message for this health technical writer. This health technical writer called the patient back andstated that [...] Currently mailing valium prescription to desired pharmacy ([facility] in [place], [place]) * Telephone Encounter - Ethan Wilkins RN - 02/05/2017 1301 EDT Patient is requesting MRI medication due to an allergy to contrast. Her MRI is scheduled for 02/16 at 1300. She is also requesting valium for the MRI due to claustrophobia. She has taken valium in the past with no adverse reactions. VPMS queried. Her desired pharmacy is [facility] in [place], [place]. Will route to provider for review. [...] on filedocumented in this encounter Care Teams Assembler Dry Cell And Battery Relationship Specialty Start Date End Date Mariam Hernandez MD [address] [place] [id number] PCP - General 01/04/17 07/17/17 documented as of this encounter
--- OUTSIDE RECORDS SUMMARY | 2024-05-05 12:19 | XMS_ITS | Encounter Summary ---
Author Organization [facility] Address [facility] [place] [address] Care Team Providers Care Quality Assurance Monitor Name Role Phone Crystal Howell APRN Primary Care Provider [phone] Encounter Details Date Type Department Care Team (Late st Contact Info) Description 01/30/2022 [place] [phone] Brook Evans RN Social History Tobacco Use [...] December 2021. ~~~~~~~~~~~~~~~~~~~~~~~~~~~~~~~ Brook Evans RN P [facility] Neuro[facility] [place] called and would like to schedule the MRI and in person appointment with JPA please. Thank you Brook documented in this encounter Plan of Treatment Upcoming Encounters Date Type Department Care Team (Late st Contact Info) Description 05/15/2024 12:50 PM EST [place] [address] Goldie Maloney MD [address] [place] [phone] 05/15/2024 1:50 PM [place] [address] Goldie Maloney MD [address] [place] [phone] documented as of this encounter Visit Diagnoses Not on filedocumented in this encounter Care Teams Quality Assurance Monitor Relationship Specialty Start Date End Date Crystal Howell APRN [address] [place], [place] [address] PCP - General Family Medicine 02/27/17 documented as of this encounter
--- OUTSIDE RECORDS SUMMARY | 2024-05-05 12:19 | XMS_ITS | Encounter Summary ---
[facility] Address [facility] [place] [address] Care Team Providers Care Electrical Sign Wirer Helper Name Role Phone Crystal Howell APRN Primary Care Provider [phone] Reason for Visit * Diagnostic Test (Routine) - Closed Specialty Diagnoses / Procedures Referred By Haseeb messina Referred To Contact Radiology Diagnoses MGM (meningioma) Procedures MRI Brain wwo Contrast (Generic) Mani Sung MD [facility] [place] [address] [facility] [place] [address] Referral ID Status Reason Start Date Expiration Date V isits Requested Visits Authorized [id number] Closed Specialty Service Requested 11/22/2020 05/25/2022 1 1 Encounter Details Date Type Department Care Team (Latest Contact Info) Description 12/15/2020 8:13 AM EDT - 12/15/2020 11:59 PM EDT Hospital [place] [address] Mani Sung MD Discharge Disposition: Home Social History Tobacco Use [...] End Date fluticasone propionate (FLONASE) 50 mcg/actuation [place], Suspension SHAKE LIQUID AND USE 1 SPRAY IN EACH NOSTRIL TWICE DAILY 11/15/2020 HERBAL DRUGS ORAL Take 2 tablets by mouth nightly as needed. Actually take CBD Oil 09/17/2023 documented as of this encounter Plan of Treatment Upcoming Encounters Date Type Department Care Team (Late st Contact Info) Description 05/15/2024 12:50 PM EST [place] [address] Goldie Maloney MD [address] [place] [phone] 05/15/2024 1:50 PM [place] [address] Goldie Maloney MD [address] [place] [address] documented as of this encounter Procedures Procedure [...] mLs documented in this encounter Care Teams Electrical Sign Wirer Helper Relationship Specialty Start Date End Date Crystal Howell APRN [address] [place] [phone] PCP - General Family Medicine 02/27/17 documented as of this encounter
--- OUTSIDE RECORDS SUMMARY | 2024-05-05 12:19 | XMS_ITS | Encounter Summary ---
Author Organization [facility] Address [facility] [place] [address] Care Team Providers Care Director Of Medical Review Name Role Phone Crystal Howell APRN Primary Care Provider [phone] Encounter Details Date Type Department Care Team (Late st Contact Info) Description 09/13/2022 3:15 PM EDT Office Visit Dermatology at [facility] [address] [place] [address] Aubree Holland MD [facility] [place] [place] [address] History of melanoma in situ; Multiple benign [...] HISTORY - 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 Last visit at [facility] Derm: 05/22/2022 Last visit with this [...] exam, sooner as needed []Note routed to assistant corporate secretary [x]Recall has been placed in scheduling system []Appointment scheduled at checkout Scribe attestation: Nancy Fields CMA who has performed the documentation for this encounter in the presence of and acting as a scribe for Aubree Holland MD. I performed the above scribed service and agree with the accuracy of the documentation in this encounter. Reviewed and signed by: Aubree Holland MD Dermatology [facility] documented in this encounter Plan of Treatment Upcoming Encounters Date Type Department Care Team (Late st Contact Info) Description 05/15/2024 12:50 PM [facility] Hospital [place] [address] Goldie Maloney MD [address] [place] [address] 05/15/2024 1:50 PM [place] [address] Goldie Maloney MD [address] [place] [address] documented as of this encounter Visit Diagnoses [...] dyschromia documented in this encounter Care Teams Director Of Medical Review Relationship Specialty Start Date End Date Crystal Howell APRN [address] [place] [address] PCP - General Family Medicine 02/27/17 documented as of this encounter
--- OUTSIDE RECORDS SUMMARY | 2024-05-05 12:19 | XMS_ITS | Encounter Summary ---
Author Organization [facility] Address [address] [place] [address] Care Team Providers Care Supervisor Tellers Name Role Phone Unavailable Primary Care Provider Unavailabl e Encounter Details Date Type Department Care Team (Late st Contact Info) Description 10/08/2001 Results Only [facility] [address] [place] [address] Radha Nunez, POWER WOOD SAWYER Social History Tobacco Use Types Packs/Day Years [...] ? HANNAH DICKERSON ? Accession #: ? [id number] : ? 1950 (Age: 51) ??F ?Collect Date: ? 10/08/2001 Location: ? [facility] ? Receive Date: ? 10/13/2001 Provider: ?RADHA NUENZ POWER WOOD SAWYER Copy to: ? Specimen/Source: ?ThinPrep Pap Test, [...] End of Report JUSTINE CEVALLOS 10/08/2001 10/13/2001 us Radha Nunez NP PATHOLOGY ORDERABLES Final Re sult JUSTINE CEVALLOS [address] [place] [address] documented in this encounter Visit Diagnoses Not on filedocumented in this encounter
--- OUTSIDE RECORDS SUMMARY | 2024-05-05 12:19 | XMS_ITS | Encounter Summary ---
Author Organization [facility] Address [address] [place] [address] Care Team Providers Care Picking Table Worker Name Role Phone Mariam Hernandez MD Primary Care Provider [phone] Encounter Details Date Type Department Care Team (Late st Contact Info) Description 01/10/2017 Orders Only [facility] Dermatology [address] [id number] Mervat Melo MD PhD [address] [place] [address], [address] [place] [address] Neck mass (Primary Dx) Social History Tobacco Use Types Packs/Day Years Used Date Smoking Tobacco: Never Comments Unknown Sex and Gender [...] 08/23/2016 7:57 EDT documented in this encounter Plan of Treatment Not on file documented as of this encounter Results * (ABNORMAL) COMPREHENSIVE METABOLIC PANEL (CMP) (01/15/2017 7:33 EDT) Potassium 4.6 3.5 - 5.0 mEq/L 01/15/2017 8:15 [facility] Sodium 142 136 - 145 mEq/L 01/15/2017 8:15 [facility] Chloride 102 96 - 110 mEq/L 01/15/2017 8:15 [facility] CO2 27 22 - 32 mEq/L 01/15/2017 8:15 [facility] Total Alkaline Phosphatase 85 38 - 126 U/L 01/15/2017 8:15 [facility] Bilirubin, Total 0.6 <1.4 mg/dl 01/16/20 17 8:15 [facility] AST 33 15 - 46 U/L 01/15/2017 8:15 [facility] ALT 46 <53 U/L 01/15/2017 8:15 [facility] Albumin 4.6 3.4 - 4.9 g/dl 01/15/2017 8:15 [facility] Total Protein 7.8 6.3 - 8.2 g/dl 01/15/2017 8:15 [facility] Creatinine 0.60 0.52 - 1.04 mg/dl 01/15/2017 8:15 [facility] GFR, Calculated 94 >60 ml/min/1.7 3m2 01/15/2017 8:15 [facility] Comment: eGFR calculated using CKD-EPI equation for non Americans. Multiply eGFR by 1.16 for Americans. BUN 23 10 - 26 mg/dl 01/15/2017 8:15 [facility] Calcium 10.3 8.5 - 10.5 mg/dl 01/15/2017 8:15 [facility] Calculated Calcium 9.8 8.5 - 10.5 mg/dl 01/15/2017 8:15 [facility] Glucose, Serum 160(H) 70 - 100 mg/dl 01/15/2017 8:15 [facility] Comment:Performed at [facility], [place], [place] Fasting? No 01/15/2017 7:29 EDT [facility] Blood specimen (specimen) BLOOD SPECIMEN / Unknown 01/15/2017 7:33 EDT 01/15/2017 7:45 EDT us Mervat Melo MD PhD CHEMISTRY & BLOOD GAS ORD ERABLES Final Result [facility] [address] [place] [address] documented in this encounter Visit Diagnoses Diagnosis Neck mass- Primary Swelling, mass, or lump in head and neck documented in this encounter Care Teams Picking Table Worker Relationship Specialty Start Date End Date Mariam Hernandez MD [address] [place] [address] PCP - General 01/04/17 07/17/17 documented as of this encounter
--- OUTSIDE RECORDS SUMMARY | 2024-05-05 12:19 | XMS_ITS | Clinical Summary ---
Author Organization [facility] Address [facility] [place] [address] Care Team Providers Care Passenger Vessel Chef Name Role Phone Crystal Howell APRN Primary Care Provider [phone] Allergies Active Allergy Reactions Criticality Noted Date Comments Iodine And Iodide Containing Products Anaphylaxis High Nitrofurantoin Monohyd/M-Cryst 02/22/2022 Nitrofurantoin Other (See Comments) Stomach upset Penicillins Hives Medium Medications Medication Sig Dispensed Refills Start Date End Date Status fluticasone propionate (FLONASE) 50 mcg/actuation [place], Suspension SHAKE LIQUID AND USE 1 SPRAY [...] 02/22/2022 1:18 PM EDT Plan of Treatment Upcoming Encounters Date Type Department Care Team (Late st Contact Info) Description 05/15/2024 12:50 PM EST Hospital [place] [address] Goldie Maloney MD [address] [place] [address] 05/15/2024 1:50 PM EST [place] [address] Goldie Maloney MD [address] [place] [address] [phone] Health Maintenance Due Date Last Done Comments Hepatitis C Screening 1966 Tetanus/Diphtheria/Pertussis Vaccines (1 - Tdap) 1967 Pneumoccocal Vaccine: 65+ (1 of 1 - PCV) 1998 Zoster vaccine (1 of 2) 1998 Advance Directive 2003 Bone Density Scan 2013 RSV Vaccine (1 - 1-dose 75+ series) 2023 Covid-19 Vaccine ( - season) 2024 Influenza (Flu) vaccine (1 o f 1 - Influenza standard series) 01/05/2024 Colonoscopy Discontinued 02/14/2015, 02/14/2015 Colorectal Cancer Screening Discontinued Sigmoidoscopy (10 year) with FIT yearly Discontinued 1 , 02/14/2015 CT Colonography Discontinued FIT DNA Discontinued FIT Discontinued Sigmoidoscopy Discontinued Medical Devices Implanted Type Area Supervisor Opening And Picking Device Identifier Shelf Expiration Date Model / Serial / Lot Cover,Un3,Bu rhl,W/Tab,10 mm ([id number]) - [id number] Implanted:Qt y: 3 on 03/11/2017 by Yamil Gibson MD at [facility] [employer] - [id number] / 0 / 0 Screw,Un3,Ne w,Hd,Sd,1.5x 4mm ([id number]) - [id number] Implanted:Qt y: 17 on 03/11/2017 by Yamil Gibson MD at [facility] [employer] [employer] - [id number] / 0 / 0 Durepair,3x3 ([id number]) - [id number] Implanted:Qt y: 1 on 03/11/2017 by Mani Sung MD at [facility] Left: Cranial [employer] - [id number] 08/03/2018 [id number] / 0 / [id number] Plate,Un3,Re ct ([id number]) - [id number] Implanted:Qt y: 1 on 03/11/2017 by Mani Sung MD at [facility] [employer] - RYAN [id number] / 0 / 0 Procedures Procedure Name Priority Date/Time Associated Diagnosis Comments ORDS - PROVIDER CARE SCAN 2024 12:00 AM EST COLONOSCOPY Routine 02/14/2015 12:45 PM EDT from Last 3 Months or Most Recently Relevant to Health Maintenance Results * Scan Doc: Ords - Provider Care (2024 12:00 AM EST) Narrative 2024 12:00 AM EST Ordered by an unspecified provider. Scanning Provider MEDIA MGR SCAN EXT O RDR/RSLT * COLONOSCOPY (02/14/2015 12:45 PM EDT) [facility] Signature COLONOSCOPY [facility] Endoscopy Patient Name: Em Dickerson ? Procedure Date: 02/14/2015 12:45 PM ? Date of : 1950 ? Age: 64 ? Order #: [id number] ? Procedure: ? Colonoscopy Indications: ? Screening for colorectal malignant ? neoplasm Providers: ? Kirsten Singleton MD, Lisa Lopez, RN, ? Lisa Herrmann, Recovery Operator Referring : ?Gayatri Clarso MD Medicines: ? Midazolam 3 mg IV, [...] capacity to make decision: Yes Care Teams Passenger Vessel Chef Relationship Specialty Start Date End Date Crystal Howell APRN [address] [place] [address] PCP - General Family Medicine 02/27/17
--- OUTSIDE RECORDS SUMMARY | 2024-05-05 12:19 | XMS_ITS | Encounter Summary ---
Author Organization [facility] Address [address] [place] [address] Care Team Providers Care Front End Manager Name Role Phone Unavailable Primary Care Provider Unavailabl e Encounter Details Date Type Department Care Team (Late st Contact Info) Description 09/09/2000 Results Only [facility] - Maple conversion [address] [place] [address] Radha Nunez, SUPERVISOR CUTTING DEPARTMENT Social History Tobacco Use Types Packs/Day Years [...] ? HANNAH DICKERSON ? Accession #: ? [id number] : ? 1950 (Age: 50) ??F ?Collect Date: ? 09/09/2000 Location: ? [facility] ? Receive Date: ? 09/10/2000 Provider: ?RADHA NUNEZ SUPERVISOR CUTTING DEPARTMENT Copy to: ? Specimen/Source: ?ThinPrep Pap Test, Cervix/Endocervix Last Menstrual Period: ? SPECIMEN ADEQUACY ? Satisfactory for evaluation. GENERAL CATEGORIZATION ? Within Normal Limits ? Document reviewed and electronically signed by: ? Riya Lim, ??CT(ASCP) ? Report Date: ??09/11/2000 09:53 End of Report JUSTINE CEVALLOS 09/09/2000 09/10/2000 us Radha Nunez NP PATHOLOGY ORDERABLES Final Re sult JUSTINE CEVALLOS [address] [place] [address] documented in this encounter Visit Diagnoses Not on filedocumented in this encounter
--- OUTSIDE RECORDS SUMMARY | 2024-05-05 12:19 | XMS_ITS | Encounter Summary ---
Author Organization [facility] Address [facility] [place] [address] Care Team Providers Care Toll Service Observer Name Role Phone DanteDyanCrystal H SAJAN Primary Care Provider [phone] Encounter Details Date Type Department Care Team (Late st Contact Info) Description 02/22/2022 [place] [address] [facility] [place] [address] Social History Tobacco Use Types Packs/Day Years [...] yr recall entered Scott Medina MD P [facility] Neurosurgery Equity Research Analyst Nathan, ID: Em Dickerson, 71 y.o. female, Contact info: see epic Reason: F/u longer term follow up of L meningioma s/p resection Provider: Jackson Reyes (per Dr. Sung) Timeframe: 2 years Imaging: MRI brain w/wo (ordered) Thank you, Scott Medina MD, [facility] Neurosurgery 02/22/2022 1:39 PM documented in this encounter Plan of Treatment Upcoming Encounters Date Type Department Care Team (Late st Contact Info) Description 05/15/2024 12:50 PM EST Hospital [place] [address] Goldie Maloney MD [address] [place], [place] [phone] 05/15/2024 1:50 PM [place] [address] Goldie Maloney MD [address] [place], [place] [address] documented as of this encounter Visit Diagnoses Not on filedocumented in this encounter Care Teams Toll Service Observer Relationship Specialty Start Date End Date Crystal Howell APRN [address] [place], [place] [address] PCP - General Family Medicine 02/27/17 documented as of this encounter
--- OUTSIDE RECORDS SUMMARY | 2024-05-05 12:19 | XMS_ITS | Encounter Summary ---
Author Organization [facility] Address [facility] [place] [address] Care Team Providers Care Administration Specialist Name Role Phone Crystal Howell APRN Primary Care Provider [phone] Reason for Referral * Diagnostic Test (Routine) - Closed Specialty Diagnoses / Procedures Referred By Contac t Referred To Contact Radiology Diagnoses Meningioma Procedures MRI Brain wwo Contrast (Generic) Mani Sung MD [facility] [place] [address] [place] [address] Referral ID Status Reason Start Date Expiration Date V isits Requested Visits Authorized [id number] Closed Specialty Service Requested 12/16/2020 06/18/2022 1 1 Reason for Visit * Diagnostic Test (Routine) - Closed Specialty Diagnoses / Procedures Referred By Contac t Referred To Contact Radiology Diagnoses Meningioma Procedures MRI Brain wwo Contrast (Generic) Mani Sung MD [facility] [place] [address] [place] [address] Referral ID Status Reason Start Date Expiration Date V isits Requested Visits Authorized [id number] Closed Specialty Service Requested 12/16/2020 06/18/2022 1 1 Encounter Details Date Type Department Care Team (Latest Contact Info) Description 02/22/2022 9:57 AM EDT - 02/22/2022 10:44 AM EDT Hospital Encounter MRI at [place] [phone] Mani Sung MD Meningioma Discharge Disposition: Home Social History Tobacco [...] End Date fluticasone propionate (FLONASE) 50 mcg/actuation [place], Suspension SHAKE LIQUID AND USE 1 SPRAY IN EACH NOSTRIL TWICE DAILY 11/15/2020 HERBAL DRUGS ORAL Take 2 tablets by mouth nightly as needed. Actually take CBD Oil 09/17/2023 documented as of this encounter Progress Notes * González Harris LPN - 02/22/2022 10:00 AM EDT MRI PRE-SEDATION ASSESSMENT NOTE NAME: Em Dickerson AGE: 71 y.o. : 1950 [address] [facility] [address] Female [phone] (home) Telephone Information: Crystal Howell APRN No primary care provider on file. Allergies Allergen Reactions ??? Iodine And Iodide Containing Products Anaphylaxis ??? Penicillins Hives ??? Nitrofurantoin Other (See Comments) Stomach upset Date/Time of call: February 19, 2022/5:37 PM/ PREVIOUS MRI SCAN? Yes HEIGHT: WEIGHT: SCHEDULED SCAN: MRI BRAIN WWO CONTRAST (GENERIC) [XML008] (60 mins, head first, supine) SUBJECTIVE: Claustrophobic CAN YOU LAY FLAT?: Yes AIRWAY/BREATHING ISSUES?: No DO YOU HAVE ANY INVOLUNTARY MOVEMENTS?: No DO YOU HAVE ANY PAIN?: No DO YOU TAKE PAIN MED ON A DAILY BASIS?: N/A ASSESSMENT: Pt is appropriate for po sedation PLAN: Valium 2 mg PO x 2 (tme) You must have a corrugated fastener driver present when you check in. This patient has been informed that they require a corrugated fastener driver to drive them home after this procedure. In the absence of a corrugated fastener driver, IR will not be able to sedate for your scan. Pt verbalized understanding of these instructions during the pre-procedure education via phone. Yes X [place] of corrugated fastener driver: Phone number: PRIOR SCAN DATE/S ?SEDATION TYPE [...] 12:50 PM EST Hospital [place] [address] Goldie Maloney MD [address] [place] [phone] 05/15/2024 1:50 PM [place] [address] Goldie Maloney MD [address] [place] [phone] documented as of this encounter Procedures Procedure [...] who have questions please contact the health transitional care nurse that requested your imaging first. ? 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 Mani Sung [...] mg documented in this encounter Care Teams Administration Specialist Relationship Specialty Start Date End Date Crystal Howell, VESSEL BUILDER [address] [place] [address] PCP - General Family Medicine 02/27/17 documented as of this encounter
--- OUTSIDE RECORDS SUMMARY | 2024-05-05 12:19 | XMS_ITS | Encounter Summary ---
Author Organization [facility] Address [address] [place] [address] Care Team Providers Care Steel Loader Name Role Phone Mariam Hernandez MD Primary Care Provider [phone] Reason for Referral * Radiology Services (Routine) - Closed Specialty Diagnoses / Procedures Referred By Contiain t Referred To Contact Diagnoses Meningioma (HCC-CMS) Procedures MR HEAD W/WO CONTRAST Alex Aldridge MD Phone: tel: fax: Referral ID Status Reason Start Date Expiration Date Visits Re quested Visits Authorized [id number] Closed 01/15/2017 1 1 Reason for Visit * Reason Comments New Patient Visit tumor Encounter Details Date Type Department Care Team (Late st Contact Info) Description 01/15/2017 13:00 EDT Office Visit [facility] Neurosurgery - [address] [address] Alex Aldridge MD [address] [place] [address], [address] [place] [phone] Meningioma (CMS-HCC) (HCC-CMS) (Primary Dx) Discharge Disposition: [...] EDT documented in this encounter Functional Status * [...] documented in this encounter Discharge Diagnoses Diagnosis R22.1 Localized [...] had an MRI 15 years ago in [facility] for her vertigo; however, I do [...] No pronator drift. Speech clear and fluent. Sheriff Detective, biceps, triceps, deltoids 5/5 bilaterally. Lower limbs [...] the surgery briefly. 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 [...] PM Clinical History/Comments: D32.9-Benign neoplasm of meninges, [id number]; meningioma Comparison: Neck CT January 15, 2017. [...] paranasal sinus mucosal thickening. Alex Aldridge MD IM MRI ORDERABLES Final Re sult documented in this encounter Visit Diagnoses Diagnosis Meningioma (HCC-[facility])- Primary Benign neoplasm of cerebral meninges documented in this encounter Care Teams Steel Loader Relationship Specialty Start Date End Date Mariam Hernandez MD [address] [place] [address] PCP - General 01/04/17 07/17/17 documented as of this encounter
--- OUTSIDE RECORDS SUMMARY | 2024-05-05 12:19 | XMS_ITS | Encounter Summary ---
Author Organization [facility] Address [address] [place] [address] Care Team Providers Care Translator Deaf Name Role Phone Mariam Hernandez MD Primary Care Provider Reason for Referral * Radiology Services (48 Hrs (Urgent)) - Closed Specialty Diagnoses / Procedures Referred By Contac t Referred To Contact Diagnoses Neck mass Procedures CT NECK (SOFT TISSUE) W CONTRAST Mervat Melo MD PhD Phone: tel: fax: Referral ID Status Reason Start Date Expiration Date Visits Re quested Visits Authorized [id number] Closed 01/11/2017 1 1 Encounter Details Date Type Department Care Team (Late st Contact Info) Description 01/11/2017 Orders Only [facility] Dermatology 3rd Floor [facility] [address] [place], [place] [id number] Mervat Melo MD PhD [address] [place] [address], [facility] [address] [place] [id number] Neck mass (Primary Dx) Social History Tobacco [...] 08/23/2016 7:57 EDT documented in this encounter Ordered Prescriptions Prescription Sig Dispense Quantity Refills Last Filled Start Date End Date methylPREDNISolone (MEDROL) 32 mg tablet Take one pill [address] and one pill 1.[address] 2 Tab 01/11/2017 documented in this encounter Progress Notes * Mervat Melo MD - 01/11/2017 1350 EDT Called patient and discussed plan of action. Dr. Harman, MARIFER requires imaging prior to US guided FNA. [...] with the findings. Procedure Note Ganesh Prieto P - 01/15/2017 CT NECK (SOFT TISSUE) W [...] Mervat Melo MD PhD IMG CT ORDERABLES Final R esult documented in this encounter Visit Diagnoses Diagnosis Neck mass- Primary Swelling, mass, or lump in head and neck documented in this encounter Care Teams Translator Deaf Relationship Specialty Start Date End Date Mariam Hernandez MD [address] [place] [address] PCP - General 01/04/17 07/17/17 documented as of this encounter
--- OUTSIDE RECORDS SUMMARY | 2024-05-05 12:19 | XMS_ITS | Encounter Summary ---
Author Organization [facility] Address [address] [place] [address] Care Team Providers Care Strawhat Blocking Operator Name Role Phone Nicole Dang NP Primary Care Provider [phone] Reason for Visit * Reason Onset Date Comments Melanoma 07/20/2016 patient requesti ng a second oppion. 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 Tonia Lundberg 07/23/2016 8:31 * Telephone Encounter - Tonia Lundberg - 07/23/2016 0815 EDT Patient calling to check in on status of referral. Informed patient that it looks like we have received a fax with the referral and some notes. Pathology was not included in fax. Let patient know that I will call Dr. Cha's office at [facility] to request pathology to be sent. Patient would liketo schedule appointment NEELAM. Tonia Lundberg 07/23/2016 8:23 * Telephone Encounter - Chantale Gregg - 07/20/2016 1646 EDT patient requesting a second oppion. Faxing notes and pathology report. 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
--- OUTSIDE RECORDS SUMMARY | 2024-05-05 12:19 | XMS_ITS | Encounter Summary ---
Author Organization [facility] Address [address] [place] [address] Care Team Providers Care Produce Team Lead Name Role Phone Mariam Hernandez MD Primary Care Provider Reason for Visit * Reason Onset Date Comments Discuss Surgery 01/21/2017 has questions ab out treatment before surgery Encounter Details Date Type Department Care Team (Late st Contact Info) Description 01/21/2017 Telephone [facility] Neurosurgery - [facility] [address] [place] [address] Alex Aldridge MD [address] [place] [address], [address] [place] [address] Discuss Surgery (has questions about [...] since it's required for a [facility] opinionat [facility] and [facility]. Her call was transferred to [facility] so she could reschedule. - Discussed with Em that we will leave the CT and appointment on 03/[address] Aldridge and her surgery on 03/11/17 scheduled. Em will contact our office if she decides to seek treatment at a different facility. - Em requested that our office send referrals to [facility] and [facility]. She provided the following information for [facility]: Dr. Kevin Stockton Contact: Faustina [phone] Em verbalized understanding of all information discussed and denied having any further questions. * Telephone Encounter - Ethan Wilkins RN - 01/22/[address] Aldridge about the gamma knife procedure. Dr. Aldridge and Dr. Clay stated they do a similar procedure here. This was relayed to the patient. She was told if she has further questions, she is welcome to come in to discuss surgery with Dr. Aldridge, per his advice. She stated she is waiting on a call about an MRI Email Production Specialist attempted to transfer patient to JULIO Perez, but she was helping other patients at that time. Will route to JULIO Mcclelland. Patient verbalized understanding. * Telephone Encounter - Bella Stratton - 01/21/2017 1201 EDT Patient would like a referral for a second opinion to [facility]. Fax number is [phone] Phone is [phone] * Telephone Encounter - Ethan Wilkins RN - 01/21/2017 1035 EDT Patient called to see if she was eligible for gamma knife procedure for a meningioma resection. This engineering technical writer stated he had heard about this procedure, but was unsure if we utilize it. She is wonderingif: a) Does Dr. Aldridge utilize gamma knife b) It is available at [facility]? And C) is she eligible forthis procedure to remove the meningioma? Email Production Specialist stated he would speak with provider and [...] on filedocumented in this encounter Care Teams Produce Team Lead Relationship Specialty Start Date End Date Mariam Hernandez MD [address] [place] [phone] PCP - General 01/04/17 07/17/17 documented as of this encounter
--- OUTSIDE RECORDS SUMMARY | 2024-05-05 12:19 | XMS_ITS | Encounter Summary ---
Author Organization [facility] Address [address] [place] [address] Care Team Providers Care Medication Specialist Name Role Phone Mariam Hernandez MD Primary Care Provider [phone] Reason for Visit * Reason Onset Date Comments Other 01/11/2017 Encounter Details Date Type Department Care Team (Late st Contact Info) Description 01/11/2017 Telephone [facility] Dermatology [address] [facility] [address] [place] [address] Mervat Melo MD PhD [address] [facility], [address] [place] [address] Other Social History Tobacco Use [...] 08/23/2016 7:57 EDT documented in this encounter Miscellaneous Notes * Telephone Encounter - Eloisa Park - 01/14/2017 1011 EDT Spoke to patient [...] of CT appointment scheduled for tomorrow at [facility] 8:30AM check in. Advised patient I am waiting on cytopathology for appointment time for FNA prior to CT if possible. Eloisa Park 01/14/2017 9:19 * Telephone Encounter - Nikole Langford - 01/14/2017 0844 EDT Called medicare at [phone] With CPT Code 44086. [employer] does NOT require authorization. Scan has been made for tomorrow at [facility] - check in at 8:30 for [...] FNA BEFORE the CT (They are aware) [phone]. Let patient know to get labs drawn [...] on filedocumented in this encounter Care Teams Medication Specialist Relationship Specialty Start Date End Date Mariam Hernandez MD [address] [place] [address] PCP - General 01/04/17 07/17/17 documented as of this encounter
--- OUTSIDE RECORDS SUMMARY | 2024-05-05 12:19 | XMS_ITS | Encounter Summary ---
Author Organization [facility] Address [facility] [place] [address] Care Team Providers Care Director Energy Name Role Phone Dante Crystalananth Lemos APRN Primary Care Provider [phone] Encounter Details Date Type Department Care Team (Late st Contact Info) Description 09/11/[address] [place] [address] Zeinab Adan Social History Tobacco Use Types [...] 12:50 PM EST Hospital [place] [address] Goldie Maloney MD [address] [place] [address] 05/15/2024 1:50 PM [place] [address] Goldie Maloney MD [address] [place] [address] documented as of this encounter Visit Diagnoses Not on filedocumented in this encounter Care Teams Director Energy Relationship Specialty Start Date End Date Crystal Howell APRN [address] [place], [place] [id number] PCP - General Family Medicine 02/27/17 documented as of this encounter
--- OUTSIDE RECORDS SUMMARY | 2024-05-05 12:19 | XMS_ITS | Encounter Summary ---
Author Organization [facility] Address [address] [place] [address] Care Team Providers Care Director Of Knowledge Management Name Role Phone Mariam Hernandez MD Primary Care Provider [phone] Reason for Visit * Reason Onset Date Comments Appointment Related 01/10/2017 Encounter Details Date Type Department Care Team (Late st Contact Info) Description 01/10/2017 Telephone [facility] Dermatology 3rd Floor [facility] [address] [place] [address] Mervat Melo MD PhD [address] [place] [address], [address] [place] [address] Appointment Related Social History Tobacco [...] filedocumented in this encounter Care Teams Director Of Knowledge Management Relationship Specialty Start Date End Date Mariam Hernandez MD [address] [place] [address] PCP - General 01/04/17 07/17/17 documented as of this encounter
--- OUTSIDE RECORDS SUMMARY | 2024-05-05 12:19 | XMS_ITS | Encounter Summary ---
Author Organization [facility] Address [address] [place] [address] Care Team Providers Care Atomic Welder Name Role Phone Unavailable Primary Care Provider Unavailabl e Encounter Details Date Type Department Care Team (Late st Contact Info) Description 11/04/2002 Results Only [facility] - Maple conversion [address] [place] [address] Radha Nunez, FIRE EXTINGUISHER CHARGER Social History Tobacco Use Types Packs/Day Years [...] ? HANNAH DICKERSON ? Accession #: ? [id number] : ? 1950 (Age: 52) ??F ?Collect Date: ? 11/04/2002 Location: ? [facility] ? Receive Date: ? 11/09/2002 Provider: ?RADHA NUNEZ FIRE EXTINGUISHER CHARGER Copy to: ? Specimen/Source: ?ThinPrep Pap Test, [...] End of Report [facility] 11/04/2002 11/09/2002 us Radha Nunez NP PATHOLOGY ORDERABLES Final Re sult [facility] [address] [place] [address] documented in this encounter Visit Diagnoses Not on filedocumented in this encounter
--- OUTSIDE RECORDS SUMMARY | 2024-05-05 12:19 | XMS_ITS | Encounter Summary ---
Author Organization [facility] Address [facility] [place] [address] Care Team Providers Care Centrifugal Casting Machine Tender Name Role Phone Crystal Howell APRN Primary Care Provider [phone] Encounter Details Date Type Department Care Team [...] 12:50 PM EST [place] [address] Goldie Maloney MD [address] [place], [place] [address] 05/15/2024 1:50 PM [place] [address] Goldie Maloney MD [address] [place], [place] [address] documented as of this encounter Visit Diagnoses Not on filedocumented in this encounter Care Teams Centrifugal Casting Machine Tender Relationship Specialty Start Date End Date Crystal Howell APRN [address] [place] [address] PCP - General Family Medicine 02/27/17 documented as of this encounter
--- OUTSIDE RECORDS SUMMARY | 2024-05-05 12:19 | XMS_ITS | Encounter Summary ---
Author Organization [facility] Address [address] [place] [address] Care Team Providers Care Chemical Tank Worker Name Role Phone Nicole Dang NP Primary Care Provider [phone] Reason for Visit * Reason Onset Date Comments Requesting Sooner Appointment 08/01/2016 [facility] Encounter Details Date Type Department Care Team (Late st Contact Info) Description 08/01/2016 Telephone [facility] Dermatology [address] [facility] [address] [place], [place] [address] Narayan Morin MD [address] [facility], [address] [place] [address] Requesting Sooner Appointment ([facility]) Social [...] on filedocumented in this encounter Care Teams Chemical Tank Worker Relationship Specialty Start Date End Date Nicole Dang NP [address] [facility] [place] [address] PCP - General 03/21/15 08/22/16 documented as of this encounter
--- OUTSIDE RECORDS SUMMARY | 2024-05-05 12:19 | XMS_ITS | Encounter Summary ---
Author Organization [facility] Address [address] [place] [address] Care Team Providers Care Metal Bonding Helper Name Role Phone Mariam Hernandez MD Primary Care Provider [phone] Encounter Details Date Type Department Care Team (Late st Contact Info) Description 01/11/2017 Orders Only [facility] Dermatology 3rd Floor [address] [address] Mervat Melo MD PhD [address] [place] [address], [address] [place] [address] Neck mass (Primary Dx) Social [...] neck documented in this encounter Care Teams Metal Bonding Helper Relationship Specialty Start Date End Date Mariam Hernandez MD [address] [place] [address] PCP - General 01/04/17 07/17/17 documented as of this encounter
--- OUTSIDE RECORDS SUMMARY | 2024-05-05 12:19 | XMS_ITS | Encounter Summary ---
Author Organization [facility] Address [address] [place] [address] Care Team Providers Care Refrigeration Unit Repairer Name Role Phone Mariam Hernandez MD Primary Care Provider [phone] Encounter Details Date Type Department Care Team (Late st Contact Info) Description 01/15/2017 6:16 EDT - 01/15/2017 23:59 EDT Hospital Encounter [address] [address] Mervat Melo MD PhD [address] [facility], [address] [place] [address] Discharge Disposition: Auto Discharge Social [...] this encounter Medications at Time of Discharge DIAZepam (VALIUM) 5 mg tablet Take 1 tablet by mouth. 1 Tab 08/23/2016 methylPREDNISolon e (MEDROL) 32 mg tablet Take one pill [address] and one pill 1.[address] 2 Tab 01/11/2017 documented as of this encounter Discharge Disposition Disposition Code Departure Means Destination Auto Discharge Home documented in this encounter Plan of Treatment Not on file documented as of this encounter Visit Diagnoses Not on filedocumented in this encounter Care Teams Refrigeration Unit Repairer Relationship Specialty Start Date End Date Mariam Hernandez MD [address] [place] [address] PCP - General 01/04/17 07/17/17 documented as of this encounter
--- OUTSIDE RECORDS SUMMARY | 2024-05-05 12:19 | XMS_ITS | Encounter Summary ---
Author Organization [facility] Address [address] [place] [address] Care Team Providers Care Manager Of Employee Relations Name Role Phone Unavailable Primary Care Provider Unavailabl e Encounter Details Date Type Department Care Team (Late st Contact Info) Description 03/22/2008 Before PRISM Converted Visit (Maple) [facility] - Maple conversion [address] [place] [address] Radha Nunez, SUSANA Social History Tobacco Use [...] 03/22/2008 15:3 0 EST 03/25/2008 14:46 EST us Radha Oj Mayra [employer] FACTORY WORKER MICROBIOLOGY - GENERAL ORDERA PETERS Final Result [facility] [address] [place] [address] * CYTOPATHOLOGY (03/22/2008 0:00 EST) Pathology Report: CYTOPATHOLOGY REPORT ? Reports generated via electronic interface contain original data; ? however they are lacking the format of the original report. ? Caution should be taken when reading/interpreti ng unformatted reports. ? Name: ? HANNAH DICKERSON ? Accession #: ? [id number] ? : ? 1950 (Age: 57) ??F ?Collect Date: ? 03/22/2008 ? Location: ? [facility] ? Receive Date: ? 03/23/2008 ? Provider: ?RADHA M MAYRA [employer] FACTORY WORKER ? Copy to: ? Specimen/Source: ?Pap Test, [...] 10:58 ? End of Report ? [facility] 03/22/2008 03/23/2008 us Radha Nunez [employer] FACTORY WORKER PATHOLOGY ORDERABLES Final Re sult [facility] [address] [place] [address] documented in this encounter Visit Diagnoses Not on filedocumented in this encounter
--- OUTSIDE RECORDS SUMMARY | 2024-05-05 12:19 | XMS_ITS | Encounter Summary ---
Author Organization [facility] [place] [address] Care Team Providers Care Market Development Manager Name Role Phone Crystal Howell APRN Primary Care Provider [phone] Encounter Details Date Type Department Care Team (Late st Contact Info) Description 12/15/2020 11:20 AM EDT [place] [address] Mani Sung MD Meningioma Social History Tobacco Use Types Packs/Day [...] imaging in 2019 and going back to 2017. We again discussed the rationale for continued [...] 12:50 PM EST [place] [address] oGldie Maloney MD [address] [place] [address] 05/15/2024 1:50 PM [place] [address] Goldie Maloney MD [address] [place] [address] documented as of this encounter Visit Diagnoses Diagnosis Meningioma Benign neoplasm of cerebral meninges documented in this encounter Care Teams Market Development Manager Relationship Specialty Start Date End Date Crystal Howell APRN [address] [place] [address] PCP - General Family Medicine 02/27/17 documented as of this encounter
--- OUTSIDE RECORDS SUMMARY | 2024-05-05 12:19 | XMS_ITS | Encounter Summary ---
Author Organization [facility] Address [address] [place] [address] Care Team Providers Care Saw Repairer Name Role Phone Mariam Hernandez MD Primary Care Provider [phone] Encounter Details Date Type Department Care Team (Late st Contact Info) Description 01/15/2017 Phlebotomy Only [address] [address] Joinery Patternmaker, Outpatient Neck mass (Primary Dx) Social History [...] 4.6 3.5 - 5.0 mEq/L 01/15/2017 8:15 [facility] Sodium 142 136 - 145 mEq/L 01/15/2017 8:15 [facility] Chloride 102 96 - 110 mEq/L 01/15/2017 8:15 [facility] CO2 27 22 - 32 mEq/L 01/15/2017 8:15 [facility] Total Alkaline Phosphatase 85 38 - 126 U/L 01/15/2017 8:15 [facility] Bilirubin, Total 0.6 <1.4 mg/dl 01/16/20 17 8:15 [facility] AST 33 15 - 46 U/L 01/15/2017 8:15 [facility] ALT 46 <53 U/L 01/15/2017 8:15 [facility] Albumin 4.6 3.4 - 4.9 g/dl 01/15/2017 8:15 [facility] Total Protein 7.8 6.3 - 8.2 g/dl 01/15/2017 8:15 [facility] Creatinine 0.60 0.52 - 1.04 mg/dl 01/15/2017 8:15 [facility] GFR, Calculated 94 >60 ml/min/1.7 3m2 01/15/2017 8:15 [facility] Comment: eGFR calculated using CKD-EPI equation for non Americans. Multiply eGFR by 1.16 for Americans. BUN 23 10 - 26 mg/dl 01/15/2017 8:15 [facility] Calcium 10.3 8.5 - 10.5 mg/dl 01/15/2017 8:15 [facility] Calculated Calcium 9.8 8.5 - 10.5 mg/dl 01/15/2017 8:15 [facility] Glucose, Serum 160(H) 70 - 100 mg/dl 01/15/2017 8:15 [facility] Comment:Performed at [facility], [place], [place] Fasting? No 01/15/2017 7:29 [facility] Blood specimen (specimen) BLOOD SPECIMEN / Unknown 01/15/2017 7:33 EDT 01/15/2017 7:45 EDT us Mervat Melo MD PhD CHEMISTRY & BLOOD GAS ORD ERABLES Final Result [facility] [address] [place] [address] documented in this encounter Visit Diagnoses Diagnosis Neck mass- Primary Swelling, mass, or lump in head and neck documented in this encounter Care Teams Saw Repairer Relationship Specialty Start Date End Date Mariam Hernandez MD [address] [place] [address] PCP - General 01/04/17 07/17/17 documented as of this encounter
--- OUTSIDE RECORDS SUMMARY | 2024-05-05 12:19 | XMS_ITS | Encounter Summary ---
Author Organization [facility] [place] [address] Care Team Providers Care Management Advisor Name Role Phone Crystal Howell APRN Primary Care Provider [phone] Encounter Details Date Type Department Care Team (Late st Contact Info) Description 02/22/2022 1:20 PM EDT [place] [address] Mani Sung MD Meningioma Social History Tobacco [...] Medina MD - 02/22/2022 1:20 PM EDT [facility] Neurosurgery Clinic Note Date & Time: [...] DIAGNOSTIC performed by Kirsten Singleton MD at [facility] ENDOSCOPY ??? PRO EXCIS SUPRATENT MENINGIOMA Left 03/11/2017 @CRANI, FOR TUMOR, SUPRATENTORIAL, MENINGIOMA (WRVU 37.14) performed by Mani Sung MD at [facility] ??? PRO MICROSURG TECHNIQUES, REQ OPER MICROSCOPE N/A 03/11/2017 MICROSCOPE USE (WRVU 3.46) performed by Mani Sung MD at [facility] ??? PRO STEREOTACTIC CPTR ASSTD PX CRANIAL, INTRADURAL Left 03/11/2017 STEREOTACTIC COMPUTER-ASSTD NAVIGATIONAL CRANIAL INTRADURAL (WRVU 3.75) performed by Mani Sung MD at [facility] Medications: Current Outpatient Medications on File Prior to Visit Medication Sig Dispense Refill ??? fluticasone propionate (FLONASE) 50 mcg/actuation [place], Suspension SHAKE LIQUID AND USE 1 SPRAY [...] 12:50 PM [place] [address] Golide Maloney MD [address] [place] [address] 05/15/2024 1:50 PM [place] [address] Goldie Maloney MD [address] [place] [address] documented as of this encounter Visit Diagnoses Diagnosis Meningioma Benign neoplasm of cerebral meninges documented in this encounter Care Teams Management Advisor Relationship Specialty [place] Date End Date Crystal Howell APRN [address] [place] [address] PCP - General Family Medicine 02/27/17 documented as of this encounter
--- OUTSIDE RECORDS SUMMARY | 2024-05-05 12:19 | XMS_ITS | Encounter Summary ---
Author Organization [facility] Address [address] [place] [address] Care Team Providers Care Siebel Solution Architect Name Role Phone Tawanna Kelly NELLIE Primary Care Provider [phone] Reason for Visit * Reason Comments Suture / Staple Removal Encounter Details Date Type Department Care Team (Late st Contact Info) Description 08/30/2016 8:00 EDT Office Visit [facility] Dermatology 5th [address] [address] Unknown, Provider, MD Melo, Mervat Auguste MD PhD [address] 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
--- OUTSIDE RECORDS SUMMARY | 2024-05-05 12:19 | XMS_ITS | Encounter Summary ---
Author Organization [facility] Address [address] [place] [address] Care Team Providers Care Risk Control Officer Name Role Phone Unavailable Primary Care Provider Unavailabl e Encounter Details Date Type Department Care Team (Late st Contact Info) Description 02/18/2006 Results Only [facility] - Maple conversion [address] [place] [address] Radha Nunez, CONSUMER LOAN OFFICER Social History Tobacco Use Types Packs/Day Years [...] ? HANNAH DICKERSON ? Accession #: ? [id number] : ? 1950 (Age: 55) ??F ?Collect Date: ? 02/18/2006 Location: ? [facility] ? Receive Date: ? 02/19/2006 Provider: ?RADHA NUNEZ CONSUMER LOAN OFFICER Copy to: ? Specimen/Source: ?ThinPrep Pap Test, Cervix/Endocervix, processed on [facility] ThinPrep Imaging System, with manual evaluation Last [...] End of Report [facility] 02/18/2006 02/19/2006 us Radha Nunez NP PATHOLOGY ORDERABLES Final Re sult [facility] [address] [place] [address] documented in this encounter Visit Diagnoses Not on filedocumented in this encounter
--- OUTSIDE RECORDS SUMMARY | 2024-05-05 12:19 | XMS_ITS | Encounter Summary ---
Author Organization [facility] Address [address] [place] [address] Care Team Providers Care Shoe Dresser Name Role Phone Unavailable Primary Care Provider Unavailabl e Encounter Details Date Type Department Care Team (Late st Contact Info) Description 04/24/2011 Results Only [facility] Services - [facility] [address] [place] [address] Radha Nunez, SUSANA Social History [...] ? HANNAH DICKERSON ? Accession #: ? [id number] ? : ? 1950 (Age: 61) ??F ?Collect Date: ? 04/24/2011 ? Location: ? [facility] ? Receive Date: ? 04/25/2011 ? Provider: RADHA NUNEZ OIL PAINT SHADER Copy to: COURTNEY ROTH MORTGAGE LOAN FUNDER ? Final Report SPECIMEN ADEQUACY ? Satisfactory [...] of Report [facility] 04/24/2011 04/25/2011 us Radha Nunez OIL PAINT SHADER PATHOLOGY ORDERABLES Final Re sult [facility] [address] [place] [address] documented in this encounter Visit Diagnoses Not on filedocumented in this encounter
--- OUTSIDE RECORDS SUMMARY | 2024-05-05 12:19 | XMS_ITS | Encounter Summary ---
Author Organization [facility] Address [address] [place] [address] Care Team Providers Care Label Maker Name Role Phone Mariam Hernandez MD Primary Care Provider [phone] Encounter Details Date Type Department Care Team (Late st Contact Info) Description 02/16/2017 11:39 EDT - 02/16/2017 23:59 EDT Hospital Encounter [address] [address] Alex Aldridge MD [address] [place] [address], [address] [place] [address] Discharge Disposition: Auto Discharge Social [...] documented in this encounter Discharge Diagnoses Diagnosis D32.9 Benign neoplasm of meninges, unspecified-D32.9[ICD-10-CM] documented in this encounter Medications at Time of Discharge DIAZepam (VALIUM) 5 mg tablet Take 1 tab 45 min prior to the procedure and repeat immediately before if needed 2 Tab 02/06/2017 DIAZepam (VALIUM) 5 mg tablet Take 1 tablet by mouth. 1 Tab 08/23/2016 methylPREDNISolo ne (MEDROL) 32 mg tablet Take one pill [address] and one pill 1.[address] 2 Tab 01/11/2017 documented as of this encounter Discharge Disposition Disposition Code Departure Means Destination Auto Discharge Home documented in this encounter Plan of Treatment Not on file documented as of this encounter Visit Diagnoses Not on filedocumented in this encounter Care Teams Label Maker Relationship Specialty [place] Date End Date Mariam Hernandez MD [address] [place] [address] PCP - General 01/04/17 07/17/17 documented as of this encounter
--- OUTSIDE RECORDS SUMMARY | 2024-05-05 12:19 | XMS_ITS | Encounter Summary ---
Author Organization [facility] Address [facility] [place] [address] Care Team Providers Care Mortgage Or Loan Underwriter Name Role Phone Crystal Howell APRN Primary Care Provider [phone] Encounter Details Date Type Department Care Team [...] 12:50 PM EST [place] [address] Goldie Maloney MD [address] [place], [place] [address] 05/15/2024 1:50 PM [place] [address] Goldie Maloney MD [address] [place], [place] [id number] documented as of this encounter Visit Diagnoses Not on filedocumented in this encounter Care Teams Mortgage Or Loan Underwriter Relationship Specialty [place] Date End Date Crystal Howell APRN [address] [place] [address] PCP - General Family Medicine 02/27/17 documented as of this encounter
--- OUTSIDE RECORDS SUMMARY | 2024-05-05 12:19 | XMS_ITS | Encounter Summary ---
Author Organization [facility] Address [address] [place] [address] Care Team Providers Care Supervisor Shearing Name Role Phone Robin Tawanna BALLARD Primary Care Provider [phone] Mariam Hernandez MD Primary Care Provider [phone] Crystal Howell APRN Primary Care Provider [phone] Reason for Visit * Reason Onset Date Comments New Patient Visit 11/12/2016 Encounter Details Date Type Department Care Team (Late st Contact Info) Description 11/12/2016 Telephone [facility] Cardiology - [address] [place] [address] Unknown, Doctor New Patient Visit [...] Reason for Call: New Patient Visit Summary/Symptoms: [facility] sent referral for NPV on 11/08/16. Patient has decided to go elsewhere, disregard referral Betsey Rodríguez 11/12/2016 11:02 documented in this encounter Plan of Treatment Not on file documented as of this encounter Visit Diagnoses Not on filedocumented in this encounter Care Teams Supervisor Shearing Relationship Specialty Start Date End Date Tawanna Kelly FNP PCP - General 08/23/16 01/03/17 Mariam Hernandez MD [address] [place] [address] PCP - General 01/04/17 07/17/17 Crystal Howell APRN [address] [address] PCP - General 07/18/17 documented as of this encounter
--- OUTSIDE RECORDS SUMMARY | 2024-05-05 12:19 | XMS_ITS | Encounter Summary ---
Author Organization [facility] Address [address] [place] [address] Care Team Providers Care Drill Instructor Name Role Phone Unavailable Primary Care Provider Unavailabl e Encounter Details Date Type Department Care Team (Late st Contact Info) Description 02/26/2007 Results Only [facility] - Maple conversion [address] [place] [address] Radha Nunez, MULTIPLE DRILL OPERATOR Social History Tobacco Use Types Packs/Day [...] ? HANNAH DICKERSON ? Accession #: ? [id number] : ? 1950 (Age: 56) ??F ?Collect Date: ? 02/26/2007 Location: ? [facility] ? Receive Date: ? 02/27/2007 Provider: ?RADHA NUNEZ MULTIPLE DRILL OPERATOR Copy to: ? Specimen/Source: ?ThinPrep Pap Test, Cervix/Endocervix, processed on [facility] ThinPrep Imaging System, with manual evaluation Last [...] End of Report [facility] 02/26/2007 02/27/2007 us Radha Nunez NP PATHOLOGY ORDERABLES Final Re sult [facility] [address] [place] [address] documented in this encounter Visit Diagnoses Not on filedocumented in this encounter
--- OUTSIDE RECORDS SUMMARY | 2024-05-05 12:19 | XMS_ITS | Encounter Summary ---
Author Organization [facility] Address [facility] [place] [address] Care Team Providers Care Calculus Tutor Name Role Phone Crystal Howell APRN Primary Care Provider [phone] Encounter Details Date Type Department Care Team [...] 12:50 PM EST Hospital [place] [address] Goldie Maloney MD [address] [place], [place] [address] 05/15/2024 1:50 PM [place] [address] Goldie Maloney MD [address] [place], [place] [phone] documented as of this encounter Visit Diagnoses Not on filedocumented in this encounter Care Teams Calculus Tutor Relationship Specialty Start Date End Date Crystal Howell APRN [address] [place] [address] PCP - General Family Medicine 02/27/17 documented as of this encounter
--- OUTSIDE RECORDS SUMMARY | 2024-05-05 12:19 | XMS_ITS | Encounter Summary ---
Author Organization [facility] Address [address] [place] [address] Care Team Providers Care Bone Tender Name Role Phone Mariam Hernandez MD Primary Care Provider [phone] Reason for Visit * Reason Onset Date Comments Eye Problem 01/25/2017 Encounter Details Date Type Department Care Team (Late st Contact Info) Description 01/25/2017 Telephone [facility] - [address] [id number] Alex Aldridge MD [address] [place] [address], [address] [place] [address] Eye Problem Social History Tobacco [...] on filedocumented in this encounter Care Teams Bone Tender Relationship Specialty Start Date End Date Mariam Hernandez MD [address] [place] [address] PCP - General 01/04/17 07/17/17 documented as of this encounter
--- OUTSIDE RECORDS SUMMARY | 2024-05-05 12:19 | XMS_ITS | Encounter Summary ---
Author Organization [facility] Address [address] [place] [address] Care Team Providers Care A R Specialist Name Role Phone Mariam Hernandez MD Primary Care Provider [phone] Reason for Visit * Reason Onset Date Comments Results 01/15/2017 Encounter Details Date Type Department Care Team (Late st Contact Info) Description 01/15/2017 Telephone [facility] Dermatology 3rd Floor [facility] [address] [place], [place] [address] Mervat Melo MD PhD [address] [facility], [address] [place] [address] Results Social History Tobacco Use [...] a likely left temporal meningioma. Called neurosurg part time receptionist resident Rob Landin who very kindly arranged with his attending, Dr. Faye for thepatient to be seen in on EP5- neurosurgery clinic today for evaluation. I called the patient and lether know--she is 10 minutes away and turning [...] on filedocumented in this encounter Care Teams A R Specialist Relationship Specialty Start Date End Date Mariam Hernandez MD [address] [place] [address] PCP - General 01/04/17 07/17/17 documented as of this encounter
--- OUTSIDE RECORDS SUMMARY | 2024-05-05 12:19 | XMS_ITS | Encounter Summary ---
Author Organization [facility] Address [facility] [place] [address] Care Team Providers Care Bridge Teacher Name Role Phone Crystal Howell APRN Primary Care Provider [phone] Reason for Referral * Diagnostic Test (Routine) - Closed Specialty Diagnoses / Procedures Referred By Haseeb messina Referred To Contact Radiology Diagnoses Meningioma Procedures MRI Brain wwo Contrast (Generic) Mani Sung MD [facility] [place] [address] [place] [address] Referral ID Status Reason Start Date Expiration Date V isits Requested Visits Authorized [id number] Closed Specialty Service Requested 12/16/2020 06/18/2022 1 1 Encounter Details Date Type Department Care Team (Late st Contact Info) Description 12/16/2020 [place] [address] Lorezna Lawrence Social History Tobacco Use Types Packs/Day [...] for imaging to coordinate an appt with MATTIE. * Telephone Encounter - Lorenza Lawrence - 12/16/2020 2:51 PM EDT RN, Please enter MRI orders per MATTIE last note. Betsy Britt * Telephone Encounter - Lorenza Lawrence - 12/16/2020 2:40 PM EDT Patient needs f/u appointment(s): With MATTIE on/around 12/16/21 1 year OV, s/p L [...] 12:50 PM EST [place] [address] Goldie Maloney MD [address] [place] [phone] 05/15/2024 1:50 PM [place] [address] Goldie Maloney MD [address] [place] [phone] documented as of this encounter Results * [...] who have questions please contact the health child care counselor that requested your imaging first. ? 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 Electronically signed by: Patricia Posadas [facility]([phone]), at 02/23/2022 11:16 AM Mani Sung MD IMG MRI ORDERABLES documented in this encounter Visit Diagnoses Diagnosis Meningioma Benign neoplasm of cerebral meninges Meningioma Benign neoplasm of cerebral meninges documented in this encounter Care Teams Bridge Teacher Relationship Specialty Start Date End Date Crystal Howell APRN [address] [place] [address] PCP - General Family Medicine 02/27/17 documented as of this encounter
--- OUTSIDE RECORDS SUMMARY | 2024-05-05 12:19 | XMS_ITS | Encounter Summary ---
Author Organization [facility] Address [address] [place] [address] Care Team Providers Care Retail Department Supervisor Name Role Phone Mariam Hernandez MD Primary Care Provider [phone] Reason for Visit * Reason Comments Skin Exam hx MM Encounter Details Date Type Department Care Team (Late st Contact Info) Description 01/08/2017 8:40 EDT Office Visit [facility] Dermatology 3rd [address] [address] Mervat Melo MD PhD [address] [place] [address], [address] [place] [address] Neoplasm of uncertain behavior of [...] 08/23/2016 7:57 EDT documented in this encounter Progress Notes * [place] [...] the resident's/fellow's note. 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
--- OUTSIDE RECORDS SUMMARY | 2024-05-05 12:19 | XMS_ITS | Encounter Summary ---
Author Organization [facility] Address [address] [place] [address] Care Team Providers Care Agency Sales Director Name Role Phone Unavailable Primary Care Provider Unavailabl e Encounter Details Date Type Department Care Team (Late st Contact Info) Description 11/15/2003 Results Only [facility] - Maple conversion [address] [place] [address] Radha Nunez, PLANNER INTERN Social History Tobacco Use Types Packs/Day Years [...] ? HANNAH DICKERSON ? Accession #: ? [id number] : ? 1950 (Age: 53) ??F ?Collect Date: ? 11/15/2003 Location: ? [facility] ? Receive Date: ? 11/17/2003 Provider: ?RADHA NUNEZ PLANNER INTERN Copy to: ? Specimen/Source: ?ThinPrep Pap Test, Cervix/Endocervix Last Menstrual Period: ? SPECIMEN ADEQUACY ? Satisfactory for Evaluation - assessment of transformation zone component not applicable ( e.g. atrophy, vaginal sample, hysterectomy) GENERAL CATEGORIZATION ? Negative for Intraepithelial Lesion or Malignancy ? Document reviewed and electronically signed by: ? GRIS Torres(ASCP) ? Report Date: ??11/23/2003 10:31 End of Report [facility] 11/15/2003 11/17/2003 us Radha Nunez NP PATHOLOGY ORDERABLES Final Re sult [facility] [address] [place] [address] documented in this encounter Visit Diagnoses Not on filedocumented in this encounter
--- OUTSIDE RECORDS SUMMARY | 2024-05-05 12:19 | XMS_ITS | Encounter Summary ---
Author Organization [facility] Address [facility] [place] [address] Care Team Providers Care Bible Worker Name Role Phone Crystal Howell APRN Primary Care Provider [phone] Reason for Visit * Diagnostic Test (Routine) - Closed Specialty Diagnoses / Procedures Referred By Haseeb messina Referred To Contact Radiology Diagnoses Meningioma Procedures MRI Brain wwo Contrast (Generic) Mani Sung MD [facility] [place] [address] [facility] [place] [address] Referral ID Status Reason Start Date Expiration Date V isits Requested Visits Authorized [id number] Closed Specialty Service Requested 12/16/2020 06/18/2022 1 1 Encounter Details Date Type Department Care Team (Latest Contact Info) Description 02/22/2022 10:45 AM EDT - 02/22/2022 11:59 PM EDT Hospital [place] [address] Mani Sung MD Discharge Disposition: [...] End Date fluticasone propionate (FLONASE) 50 mcg/actuation [place], Suspension SHAKE LIQUID AND USE 1 SPRAY IN EACH NOSTRIL TWICE DAILY 11/15/2020 HERBAL DRUGS ORAL Take 2 tablets by mouth nightly as needed. Actually take CBD Oil 09/17/2023 documented as of this encounter Plan of Treatment Upcoming Encounters Date Type Department Care Team (Late st Contact Info) Description 05/15/2024 12:50 PM EST Hospital [place] [address] Goldie Maloney MD [address] [place] [phone] 05/15/2024 1:50 PM [place] [address] Goldie Maloney MD [address] [place] [phone] documented as of this encounter Procedures Procedure [...] mLs documented in this encounter Care Teams Bible Worker Relationship Specialty Start Date End Date Crystal Howell APRN [address] [place] [id number] PCP - General Family Medicine 02/27/17 documented as of this encounter
--- OUTSIDE RECORDS SUMMARY | 2024-05-05 12:19 | XMS_ITS | Encounter Summary ---
Author Organization [facility] Address [address] [place] [address] Care Team Providers Care Rn Liaison Name Role Phone Mariam Hernandez MD Primary Care Provider [phone] Reason for Visit * Reason Onset Date Comments Discuss Test Results 02/18/2017 Encounter Details Date Type Department Care Team (Late st Contact Info) Description 02/18/2017 Telephone [facility] [address] [place], [place] [phone] Alex Aldridge MD [address] [place] [address], [address] [place] [address] Discuss Test Results Social History [...] * Telephone Encounter - Krystin Owens - 02/19/2017 4498 EDT Returned call to Em to discuss [...] is scheduled to see 2 physicians in [place] this week for a second opinion and [...] needed to drive all the way to [place] to get results. Again, reiterated that results are not given over the phone and that is why the clinic appointment was scheduled as well as she needs to physically be present in the office to sign consent for surgery. Well I have5 copies of that MRI that I am taking to [place] and might not even have surgery with you. Acknowledged that patient can proceed however she wishes but she would need a clinic appointment to discuss results and surgery. Patient terminated call. documented in this encounter Plan of Treatment Not on file documented as of this encounter Visit Diagnoses Not on filedocumented in this encounter Care Teams Rn Liaison Relationship Specialty Start Date End Date Mariam Hernandez MD [address] [place] [address] PCP - General 01/04/17 07/17/17 documented as of this encounter
--- OUTSIDE RECORDS SUMMARY | 2024-05-05 12:20 | XMS_ITS | Encounter Summary ---
Author Organization [facility] [place] [address] Care Team Providers Care Cut Off Man Name Role Phone Crystal Howell APRN Primary Care Provider [phone] Reason for Referral * Diagnostic Test (Routine) - Closed Specialty Diagnoses / Procedures Referred By Haseeb messina Referred To Contact Radiology Diagnoses Meningioma Procedures MRI Brain wwo Contrast (Generic) [facility] [address] [place] [address] [facility] [place] [address] Referral ID Status Reason Start Date Expiration Date V isits Requested Visits Authorized [id number] Closed Specialty Service Requested 10/23/2017 10/23/2018 2 2 Encounter Details Date Type Department Care Team (Late st Contact Info) Description 10/23/2017 Orders [place] [address] Lizeth Ann RN Meningioma Social [...] 12:50 PM EST [place] [address] Goldie Maloney MD [address] [place] [phone] 05/15/2024 1:50 PM [place] [address] Goldie Maloney MD [address] [place] [phone] documented as of this encounter Results * [...] meninges documented in this encounter Care Teams Cut Off Man Relationship Specialty Start Date End Date Crystal Howell, ROBOTICS SYSTEMS ENGINEER [address] [place] [address] PCP - General Family Medicine 02/27/17 documented as of this encounter
--- OUTSIDE RECORDS SUMMARY | 2024-05-05 12:20 | XMS_ITS | Encounter Summary ---
Author Organization [facility] Address [facility] [place] [address] Care Team Providers Care Promotional Model Name Role Phone Crystal Howell APRN Primary Care Provider +1 [phone] Reason for Visit * Diagnostic Test (Routine) - Closed Specialty Diagnoses / Procedures Referred By Haseeb messina Referred To Contact Radiology Diagnoses Cerebral meningioma Procedures MRI Brain wwo Contrast (Generic) [facility] [address] [place] [address] [facility] [place] [address] Referral ID Status Reason Start Date Expiration Date V isits Requested Visits Authorized [id number] Closed Specialty Service Requested 04/23/2017 04/23/2018 2 2 Encounter Details Date Type Department Care Team (Latest Contact Info) Description 07/11/2017 7:57 AM EST - 07/11/2017 11:59 PM EST [place] [address] Mani Sung MD Discharge Disposition: [...] 12:50 PM EST [place] [address] Goldie Maloney MD [address] [place] [address] [phone] 05/15/2024 1:50 PM [place] [address] Godlie Maloney MD [address] [place] [address] [phone] documented as of this encounter Procedures Procedure [...] Intravenous, ONCE PRN, 1 dose, Starting on [place] 07/11/17 at 0944, Until [place] 07/11/17 at 0944, Per Protocol, Radiology Contrast, Routine Given 07/11/2017 9:44 AM EST 15 mLs documented in this encounter Care Teams Promotional Model Relationship Specialty Start Date End Date Crystal Howell APRN [address] [place], [place] [phone] PCP - General Family Medicine 02/27/17 documented as of this encounter
--- OUTSIDE RECORDS SUMMARY | 2024-05-05 12:20 | XMS_ITS | Encounter Summary ---
Author Organization [facility] Address [facility] [place] [address] Care Team Providers Care Teacher Of The Sight Impaired Name Role Phone Crystal Howell APRN Primary Care Provider [phone] [phone] Reason for Visit * Reason Comments Follow-up s/p meningioma with MRI brain prior Encounter Details Date Type Department Care Team (Late st Contact Info) Description 04/10/2018 11:00 AM EST Office [place] [address] Mani Sung MD Meningioma Social History Tobacco [...] 12:50 PM EST [place] [address] Goldie Maloney MD [address] [place] [phone] 05/15/2024 1:50 PM [place] [address] Goldie Maloney MD [address] [place] [phone] documented as of this encounter Visit Diagnoses Diagnosis Meningioma Benign neoplasm of cerebral meninges documented in this encounter Care Teams Teacher Of The Sight Impaired Relationship Specialty Start Date End Date Crystal Howell APRN [address] [place] [address] PCP - General Family Medicine 02/27/17 documented as of this encounter
--- OUTSIDE RECORDS SUMMARY | 2024-05-05 12:20 | XMS_ITS | Encounter Summary ---
Author Organization [facility] Address [facility] [place] [address] Care Team Providers Care Business Transformation Manager Name Role Phone Crystal Howell APRN Primary Care Provider [phone] [phone] Reason for Visit * Reason Comments Results had MRI today Encounter Details Date Type Department Care Team (Late st Contact Info) Description 07/11/2017 11:30 AM EST [place] [address] Mani Sung MD Meningioma Social History Tobacco [...] 12:50 PM EST [place] [address] Goldie Maloney MD [address] [place] [address] 05/15/2024 1:50 PM [place] [address] Goldie Maloney MD [address] [place] [address] documented as of this encounter Visit Diagnoses Diagnosis Meningioma Benign neoplasm of cerebral meninges documented in this encounter Care Teams Business Transformation Manager Relationship Specialty Start Date End Date Crystal Howell APRN [address] [place] [address] PCP - General Family Medicine 02/27/17 documented as of this encounter
--- OUTSIDE RECORDS SUMMARY | 2024-05-05 12:20 | XMS_ITS | Encounter Summary ---
Author Organization [facility] Address [facility] [place] [address] Care Team Providers Care Tax Credit Leasing Consultant Name Role Phone Crystal Howell APRN Primary Care Provider [phone] [phone] Reason for Visit * Diagnostic Test (Routine) - Closed Specialty Diagnoses / Procedures Referred By Haseeb messina Referred To Contact Radiology Diagnoses Meningioma Procedures MRI Brain wwo Contrast (Generic) [facility] [address] [place] [address] [facility] [place] [address] Referral ID Status Reason Start Date Expiration Date V isits Requested Visits Authorized [id number] Closed Specialty Service Requested 10/23/2017 10/23/2018 2 2 Encounter Details Date Type Department Care Team (Latest Contact Info) Description 04/10/2018 7:58 AM EST - 04/10/2018 11:59 PM EST Hospital [place] [address] Mani Sung MD Discharge Disposition: [...] 12:50 PM EST Hospital [place] [address] Goldie Maloney MD [address] [place] [address] [phone] 05/15/2024 1:50 PM [place] [address] Goldie Maloney MD [address] [place] [address] [phone] documented as of this encounter Procedures Procedure [...] mLs documented in this encounter Care Teams Tax Credit Leasing Consultant Relationship Specialty Start Date End Date Crystal Howell APRN [address] [place], [place] [address] PCP - General Family Medicine 02/27/17 documented as of this encounter
--- OUTSIDE RECORDS SUMMARY | 2024-05-05 12:20 | XMS_ITS | Encounter Summary ---
Author Organization [facility] Address [facility] [place] [address] Care Team Providers Care Electronics Design Engineer Name Role Phone Crystal Howell APRN Primary Care Provider [phone] [phone] Reason for Visit * Reason Comments Follow-up Encounter Details Date Type Department Care Team (Late st Contact Info) Description 06/11/2019 3:40 PM EST [place] [address] Mani Sung MD Meningioma Social History Tobacco [...] 12:50 PM EST [place] [address] Goldie Maloney MD [address] [place], [place] [phone] 05/15/2024 1:50 [place] [address] Goldie Maloney MD [address] [place], [place] [address] documented as of this encounter Visit Diagnoses Diagnosis Meningioma Benign neoplasm of cerebral meninges documented in this encounter Care Teams Electronics Design Engineer Relationship Specialty Start Date End Date Crystal Howell APRN [address] [place] [address] PCP - General Family Medicine 02/27/17 documented as of this encounter
--- OUTSIDE RECORDS SUMMARY | 2024-05-05 12:20 | XMS_ITS | Encounter Summary ---
Author Organization [facility] [place] [address] Care Team Providers Care Technical Solution Architect Name Role Phone Crystal Howell APRN Primary Care Provider [phone] [phone] Encounter Details Date Type Department Care Team (Late st Contact Info) Description 10/18/2017 Telephone [place] [address] Shari Brandon Social History Tobacco Use Types [...] brain wwo Mani Sung MD ?? Sent: [facility] October 17, 2017 ??6:10 PM ? To: Nina Grayson Neurosurgery Investigation Clerk ? Message ? F/u 6 months with [...] 12:50 PM EST Hospital [place] [address] Goldie Maloney MD [address] [place] [phone] 05/15/2024 1:50 PM [place] [address] Goldie Maloney MD [address] [place] [phone] documented as of this encounter Visit Diagnoses Not on filedocumented in this encounter Care Teams Technical Solution Architect Relationship Specialty Start Date End Date Crystal Howell APRN [address] [place] [address] PCP - General Family Medicine 02/27/17 documented as of this encounter
--- OUTSIDE RECORDS SUMMARY | 2024-05-05 12:20 | XMS_ITS | Encounter Summary ---
Author Organization [facility] [place] [address] Care Team Providers Care Editor Continuity And Script Name Role Phone Crystal Howell APRN Primary Care Provider [phone] [phone] Reason for Visit * Reason Comments Follow-up s/p left pterional c raniotomy for meningioma resection with MRI prior Encounter Details Date Type Department Care Team (Late st Contact Info) Description 10/15/2017 1:15 PM EDT Office [place] [address] Mani Sung MD Meningioma Social History Tobacco [...] 12:50 PM EST [place] [address] Goldie Maloney MD [address] [place] [address] 05/15/2024 1:50 PM [place] [address] Goldie Maloney MD [address] [place] [address] documented as of this encounter Visit Diagnoses Diagnosis Meningioma Benign neoplasm of cerebral meninges documented in this encounter Care Teams Editor Continuity And Script Relationship Specialty Start Date End Date Crystal Howell APRN [address] [place] [address] PCP - General Family Medicine 02/27/17 documented as of this encounter
--- OUTSIDE RECORDS SUMMARY | 2024-05-05 12:20 | XMS_ITS | Encounter Summary ---
Author Organization [facility] Address [facility] [place] [address] Care Team Providers Care Sweatband Decorating Machine Operator Name Role Phone Eunice Howell APRN Primary Care Provider [phone] [phone] Encounter Details Date Type Department Care Team (Late st Contact Info) Description 12/02/2020 11:00 AM EDT Office Visit Dermatology at 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 PRE-PROCEDURE SCREENING If no, type N. If [...] in any preexisting lesions. Last visit at [facility] Derm: 02/11/2019 Last visit with this [...] FSE with Dr. Holland [x]Note routed to legal secretary []Recall has been placed in scheduling system [...] and signed by: EUNICE REGALADO MD Dermatology [facility] documented in this encounter Plan of Treatment Upcoming Encounters Date Type Department Care Team (Late st Contact Info) Description 05/15/2024 12:50 PM EST Hospital [place] [address] Goldie Maloney MD [address] [place] [phone] 05/15/2024 1:50 PM EST [place] [address] Goldie Maloney MD [address] [place], [place] [address] documented as of this encounter Visit Diagnoses Diagnosis Seborrheic keratoses Multiple benign nevi Benign neoplasm of skin, site unspecified History of melanoma in situ Personal history of malignant melanoma of skin documented in this encounter Care Teams Sweatband Decorating Machine Operator Relationship Specialty Start Date End Date Eunice Howell APRN [address] [place], [place] [address] PCP - General Family Medicine 02/27/17 documented as of this encounter
--- OUTSIDE RECORDS SUMMARY | 2024-05-05 12:20 | XMS_ITS | Encounter Summary ---
Author Organization [facility] Address [facility] [place] [address] Care Team Providers Care Webfocus Developer Name Role Phone Eunice Howell APRN Primary Care Provider [phone] [phone] Reason for Visit * Reason Comments Skin Cancer Examination Encounter Details Date Type Department Care Team (Late st Contact Info) Description 02/11/2019 11:45 AM EDT Office Visit Dermatology at [facility] [address] [place] [address] Eunice Regalado MD Benign keratosis; Vascular lesion Social History Tobacco [...] original note were not included. DERMATOLOGY AT [facility] [address] [facility] [address] FOLLOW-UP Date of service: 02/11/2019 Em Dickerson : 1950 Provider: Eunice Regalado MD Preferred name: Em ?? 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 Eunice Regalado MD Section of Dermatology [facility] documented in this encounter Plan of Treatment Upcoming Encounters Date Type Department Care Team (Late st Contact Info) Description 05/15/2024 12:50 PM EST Hospital [place] [address] Goldie Maloney MD [address] [place] [address] 05/15/2024 1:50 PM [place] [address] Goldie Maloney MD [address] [place], [place] [address] documented as of this encounter Visit Diagnoses Diagnosis Benign keratosis Vascular lesion Unspecified circulatory system disorder documented in this encounter Care Teams Webfocus Developer Relationship Specialty Start Date End Date Eunice Howell APRN [address] [place], [place] [phone] PCP - General Family Medicine 02/27/17 documented as of this encounter
--- OUTSIDE RECORDS SUMMARY | 2024-05-05 12:20 | XMS_ITS | Encounter Summary ---
Author Organization [facility] Address [facility] [place] [address] Care Team Providers Care Cake Wringer Name Role Phone Crystal Howell APRN Primary Care Provider [phone] Reason for Visit * Auth/Cert Specialty Diagnoses [...] Expiration Date Visits Re quested Visits Authorized [id number] 1 1 Encounter Details Date Type Department Care Team (Latest Contact Info) Description 03/11/2017 10:20 AM EST - 03/13/2017 12:53 PM [facility] Hospital Encounter [address] [place] [id number] Mani Sung MD Discharge Disposition: Home Social [...] anticoagulant, and non-steroidal anti-inflammatory (NSAIDs) drugs. Common dzcz-pll-hkrqriu medications which should be avoided include Aspirin, [...] to pass. These medications can be obtained abuw-ftd-wolrkwm and their use is recommended on an [...] weeks. Please call the Neurosurgery Office at [phone] if you do not receive a scheduled appointment. General Instructions None Discharge References/Attachments: Discharge References/Attachments None Electronically Signed By: DEE ARREDONDO 03/13/2017 documented in this encounter Discharge Instructions * Patient Instructions* Antonino eRyes PA - 03/13/2017 11:10 AM EST CRANIOTOMY FOR BRAIN TUMOR DISCHARGE INSTRUCTIONS PRESCRIPTION INSTRUCTIONS: Please see the medication reconciliation list on this discharge summary for a current list of your medications. Stop the use of blood thinning medications until instructed otherwise by your surgical team. This includes medications known as antiplatelet, anticoagulant, and non-steroidal anti-inflammatory (NSAIDs) drugs. Common erno-qrl-acmsyos medications which should be avoided include Aspirin, [...] to pass. These medications can be obtained zlju-nko-hgyfdhe and their use is recommended on an [...] weeks. Please call the Neurosurgery Office at [phone] if you do not receive a scheduled [...] consulted in the interim. TAHIR Duron * Nikole Chamorro APRN - 03/13/2017 4:11 [...] 12:23 PM EST Linda Dickerson arrived to [address] [place] [address] @ [facility] from the ICU. Oriented to room, call cancino within reach, educated on importance of using prior to getting OOB, AVSS, , incision WDL, belongings updated in eDH, bed locked in low position, purposeful hourly rounding, bed/chair alarm on. Report from MARIANNA Prieto. * Shari Gupta - 03/12/2017 7:23 AM EST NEUROSURGERY PROGRESS NOTE Linda Dickerson [id number] ID: [id number] y.o. woman s/p pterional [...] confrontation. No facial asymmetry Tongue midline MOTOR: RUE:55 LUE:55 RLE: 55 LLE: 5 No pronator drift LT sensation [...] until good PO. Monitor lytes. PLEASE PAGE [phone] WITH QUESTIONS NEUROLOGIC: brain compression GI: malnutrition [...] DIAGNOSTIC performed by Kirsten Singleton MD at [facility] ENDOSCOPY Prior To Admission Medications: Prescriptions Prior to Admission Medication Sig Dispense Refill Last Dose ??? HERBAL DRUGS ORAL Take 2 tablets by mouth nightly as needed. [facility] 03/07/2017 at Unknown time Allergies: [...] 03/11/2017 12:04 PM EST 24-HOUR UPDATE Linda Benitez Tuan was seen in SDP. No interval events [...] estate. enjoys playing tennis and going to [employer] weekly. Assessment: Pt has been seen by [...] Anticipated Discharge Disposition: home with assist Pager: [phone] MONROE PHAM OT 03/13/2017 Occupational Therapy Rehabilitation [...] Mobility Guidelines: Independent Discharge Recommendations: Home Pager: [phone] Snehal Condon DPT, NCS 03/13/2017 Physical Therapy [...] that they may express their concerns. This technical writer did assure them that their concerns were [...] Specific Information: none Health/Prescription Coverage: Primary Insurance: [facility] MANAGED MEDICARE Secondary Insurance: N/A Prescription Coverage: as above. Preferred Pharmacy: [facility] Other: n/a Primary Care Provider: Crystal Howell, MATERIAL MAN [phone] Patient/Caregiver Goals of Treatment: pt is eager [...] of care planning. Anthony Euceda RN Pager: [phone] * Plan of Care - Jordan Lopez [...] Sung MD - 03/11/2017 7:31 PM EST [facility] Operative Note Patient Name: Linda Dickerson : [id number] MR#: [id number] Case Date: 03/11/2017 Surgeon: Surgeon(s) and Role: [...] Time SPECIMEN TO PATHOLOGY (SURGICAL OR DERM) [facility] [phone] YES, Please perform frozen section Meningioma Left [...] head was placed in a Temple head field hockey coach and turned to the right, exposing the left frontaltemporal region. We then registered the [employer] stereotactic navigation system. We markedthe location of the tumor in the left sphenoid wing region, and marked a C-shaped pterional incision to create a skin flap leaving a margin around the tumor. Hair in this region was then clipped. Heroperative site was then marked off with thousand drapes. We then prepped and draped in the usual sterile fashion. We performed a [facility] mandated hard stop timeout confirming the [...] the location of the tumor using the [employer] Stealth navigation system. Bur holes were then placed using a regional director of finance bit attached to the [employer] electric drill posteriorly beyond the most lateral extent of the tumor, just above the root of zygoma, and frontally along the superior temporal line. We then removed any bony remnants using a curette. We then use a Azalea 3 instrument to strip the dura from [...] patient was then removed from the Temple head field hockey coach. She was allowed to awaken from anesthesia and was extubated. She was found to befollowing commands in all extremities with good strength. She was then taken directly to the ICU for further recovery. Infection Bundle used? See Brief Op note Attestation: Case Date: 03/11/2017 I was present and I participated during the entire procedure (does not need to include opening and closing). aMni Sung MD 03/11/2017 * Brief Op Note - Yamil Gibson MD - 03/11/2017 5:35 PM EST Brief Operative Note Patient Name: Linda Dickerson : [id number] MR#: [id number] Case Date: 03/11/2017 Surgeon: Surgeon(s) and Role: [...] Time SPECIMEN TO PATHOLOGY (SURGICAL OR DERM) [facility] [phone] YES, Please perform frozen section Meningioma Left [...] 12:50 PM EST [place] [address] Goldie Maloney MD [address] [place] [address] 05/15/2024 1:50 PM [place] [address] Goldie Maloney MD [address] [place] [address] documented as of this encounter Procedures Procedure Name Priority Date/Time Associated Diagnosis Comments RN NEW GRAD SCAN 03/14/2017 12:00 AM EST HEMOGRAM Routine [...] in this encounter Results * SCAN DOC: RN NEW GRAD (03/14/2017 12:00 AM EST) Anatomical Region Laterality Modality Other Narrative 03/14/2017 12:00 AM EST Ordered by an unspecified provider. Scanning Provider MEDIA MGR SCAN EXT O RDR/RSLT * (ABNORMAL) Differential, Automated (03/13/2017 5:38 AM EST) Neutrophil % 85.8 % [facility] Neutrophil Absolute 12.95(H) 1.70 - 6.10 x10(3)/mc L [facility] Lymph % 5.6 % [facility] Lymphocytes Abs 0.8(L) 0.9 - 3.2 x10(3)/mc L [facility] Monocyte % 7.2 % [facility] Monocyte Abs 1.1(H) 0.3 - 0.9 x10(3)/mc L [facility] Eos % 0.0 % [facility] Eosinophils Abs 0.0 0.0 - 0.4 x10(3)/mc L [facility] Basophil % 0.1 % [facility] Baso Absolute 0.0 0.0 - 0.1 x10(3)/mc L [facility] Immature Gran % 1.30 % [facility] Comment: Immature granulocytes(IG's)percentage and absolute count will include metamyelocytes, myelocytes, and promyelocytes. Blood smears from CBCs yielding IG's will be scanned manually for concordance. If this scan disagrees with the automated IG or if promyelocytes are noted, a manual differential will be performed. Immature Gran Absolute 0.19(H) 0.00 - 0.04 x10(3)/ L [facility] Blood specimen (specimen) 03/13/2017 5:38 AM EST 03/13/2017 5:54 AM EST Narrative Resulting Agency Comment Spec In Lab Angelrubin Morse SAJAN HEMATOLOGY ORDERABLE S [facility] [place] [address] * (ABNORMAL) Hemogram (03/13/2017 5:38 AM EST) White Blood Cell 15.1(H) 4.0 - 9.5 x10(3)/[facility] Red Blood Cell 3.89(L) 4.00 - 5.21 x10(6)/[facility] Hemoglobin 11.5(L) 11.7 - 15.5 gm/dL [facility] Hematocrit 32.9(L) 35.7 - 45.8 % [facility] Mean Cell Volume 84.6 82.6 - 94.4 [facility] Mean Cell Hemoglobin 29.6 27.1 - 32.0 pg [facility] Mean Cell Hemoglobin Concentration 35.0 31.7 - 35.0 gm/dL [facility] Platelet 222 145 - 357 x10(3)/[facility] RDW Standard Deviation 39.8 37.0 - 46.0 [facility] RDW coefficient of variation 13.1 11.5 - 14.1 % [facility] Mean Platelet Volume 9.6 7.6 - 12.9 [facility] NRBC% auto 0.0 % [facility] NRBC Absolute 0.000 0.000 - 0.000 x10(3)/ L [facility] Blood specimen (specimen) 03/13/2017 5:38 AM EST 03/13/2017 5:54 AM EST Narrative Resulting Agency Comment Spec In Lab Angel Morse APRN HEMATOLOGY ORDERABLE S [facility] [address] * (ABNORMAL) Basic Metabolic Panel (non-fasting) (03/13/2017 5:38 AM EST) Glucose 138 65 - 199 mg/dL [facility] Comment:Diabetes: >=200 mg/d L plus symptoms Blood Urea Nitrogen 9 8 - 18 mg/dL [facility] Creatinine 0.59(L) 0.70 - 1.20 mg/dL [facility] Sodium 139 135 - 145 mmol/L [facility] Potassium 4.3 3.5 - 5.0 mmol/L [facility] Comment: result rechecked-[facility] Please note: ??Patients with WBC >100,000 may have falsely elevated Potassium levels. ??For accurate Potassium quantification in these patients send serum separator tube (gold top) for subsequent determinations. ??Contact the Clinical Chemistry Laboratory if there are any questions. Chloride 103 98 - 107 mmol/L [facility] Carbon Dioxide 26 22 - 31 mmol/L [facility] Anion Gap 10 5 - 15 mmol/L [facility] Calcium 9.3 8.5 - 10.5 mg/dL [facility] Comment:result rechecked-[facility] Est Glomerular Filtration Rate >60 >=60 [facility] Comment: The reported eGFR should be multiplied by 1.2 for patients. The MDRD is not an appropriate measure of renal function for patients with body mass extremes or in patients with acute kidney failure. http://[employer]/DHnkdep http://[employer]/DHMCnkf Blood specimen (specimen) 03/13/2017 5:38 AM EST 03/13/2017 5:54 AM EST Narrative Resulting Agency Comment Spec In Lab Angel Morse APRN CHEMISTRY ORDERABLES [facility] [place] [address] * MRI Brain wwo Contrast (Generic) (03/12/2017 [...] EST) Phosphorus 3.5 2.5 - 4.5 mg/dL [facility] Blood specimen (specimen) Venous Draw / Unknown 03/12/2017 12:35 AM EST 03/12/2017 12:42 AM EST Narrative Resulting Agency Comment Spec In Lab Mani Sung MD CHEMISTRY ORDERABLES [facility] [address] * Magnesium (03/12/2017 12:35 AM EST) Magnesium 0.70 0.69 - 1.07 mmol/L [facility] Blood specimen (specimen) Venous Draw / Unknown 03/12/2017 12:35 AM EST 03/12/2017 12:42 AM EST Narrative Resulting Agency Comment Spec In Lab Mani Sung MD CHEMISTRY ORDERABLES Performing Organization Address City/State/[facility] Co de Phone Number [facility] [place] [address] * (ABNORMAL) Differential, Automated (03/12/2017 12:35 AM EST) Pathologist [facility] Neutrophil % 89.5 % [facility] Neutrophil Absolute 10.80(H) 1.70 - 6.10 x10(3)/mc L [facility] Lymph % 6.7 % [facility] Lymphocytes Abs 0.8(L) 0.9 - 3.2 x10(3)/ L [facility] Monocyte % 3.2 % [facility] Monocyte Abs 0.4 0.3 - 0.9 x10(3)/ L [facility] Eos % 0.0 % [facility] Eosinophils Abs 0.0 0.0 - 0.4 x10(3)/ L [facility] Basophil % 0.2 % [facility] Baso Absolute 0.0 0.0 - 0.1 x10(3)/mc L [facility] Immature Gran % 0.40 % [facility] Comment: Immature granulocytes(IG's)percentage and absolute count will include metamyelocytes, myelocytes, and promyelocytes. Blood smears from CBCs yielding IG's will be scanned manually for concordance. If this scan disagrees with the automated IG or if promyelocytes are noted, a manual differential will be performed. Immature Gran Absolute 0.05(H) 0.00 - 0.04 x10(3)/mc L [facility] Blood specimen (specimen) 03/12/2017 12:35 AM EST 03/12/2017 12:41 AM EST Narrative Resulting Agency Comment Spec In Lab Mani Sung MD HEMATOLOGY ORDERABLE S Performing Organization Address City/State/[facility] Co de Phone Number [facility] [place] [address] * (ABNORMAL) Hemogram (03/12/2017 12:35 AM EST) White Blood Cell 12.1(H) 4.0 - 9.5 x10(3)/mc L [facility] Red Blood Cell 3.97(L) 4.00 - 5.21 x10(6)/mc L [facility] Hemoglobin 11.4(L) 11.7 - 15.5 gm/dL [facility] Hematocrit 33.8(L) 35.7 - 45.8 % [facility] Mean Cell Volume 85.1 82.6 - 94.4 fL [facility] Mean Cell Hemoglobin 28.7 27.1 - 32.0 pg [facility] Mean Cell Hemoglobin Concentration 33.7 31.7 - 35.0 gm/dL [facility] Platelet 216 145 - 357 x10(3)/mc L [facility] RDW Standard Deviation 39.7 37.0 - 46.0 fL [facility] RDW coefficient of variation 12.7 11.5 - 14.1 % [facility] Mean Platelet Volume 9.2 7.6 - 12.9 fL [facility] NRBC% auto 0.0 % [facility] NRBC Absolute 0.000 0.000 - 0.000 x10(3)/mc L [facility] Blood specimen (specimen) 03/12/2017 12:35 AM EST 03/12/2017 12:41 AM EST Narrative Resulting Agency Comment Spec In Lab Mani Sung MD HEMATOLOGY ORDERABLE S [facility] [place] [address] * (ABNORMAL) Basic Metabolic Panel (non-fasting) (03/12/2017 12:35 AM EST) Glucose 163 65 - 199 mg/dL [facility] Comment:Diabetes: >=200 mg/d L plus symptoms Blood Urea Nitrogen 14 8 - 18 mg/dL [facility] Creatinine 0.59(L) 0.70 - 1.20 mg/dL [facility] Sodium 142 135 - 145 mmol/L [facility] Potassium 3.1(L) 3.5 - 5.0 mmol/L [facility] Comment: result rechecked-douglas Please note: ??Patients with WBC >100,000 may have falsely elevated Potassium levels. ??For accurate Potassium quantification in these patients send serum separator tube (gold top) for subsequent determinations. ??Contact the Clinical Chemistry Laboratory if there are any questions. Chloride 107 98 - 107 mmol/L [facility] Carbon Dioxide 20(L) 22 - 31 mmol/L [facility] Anion Gap 15 5 - 15 mmol/L [facility] Calcium 8.1(L) 8.5 - 10.5 mg/dL [facility] Est Glomerular Filtration Rate >60 >=60 [facility] Comment: The reported eGFR should be multiplied by 1.2 for patients. The MDRD is not an appropriate measure of renal function for patients with body mass extremes or in patients with acute kidney failure. http://[employer]/DHnkdep http://[employer]/DHMCnkf Blood specimen (specimen) 03/12/2017 12:35 AM EST 03/12/2017 12:41 AM EST Narrative Resulting Agency Comment Spec In Lab Angel Morse APRN CHEMISTRY ORDERABLES Performing Organization Address City/[facility]/ZIP Co de Phone Number [facility] [address] * Specimen to Pathology (surgical or derm) (03/11/2017 4:52 PM EST) AP Specimen 03/11/2017 4:52 PM EST 03/11/2017 4:52 PM EST Narrative [facility] - 03/11/2017 4:52 PM EST Specimen requisition ordered. ??Separate Pathology report to follow Mani Sung MD PATHOLOGY/CYTOLOGY O PARTHA Performing Organization Address [facility] Co de Phone Number [facility] [place] [address] * Specimen to Pathology (surgical or derm) (03/11/2017 3:22 PM EST) AP Specimen 03/11/2017 3:22 PM EST 03/11/2017 3:22 PM EST Narrative [facility] - 03/11/2017 3:22 PM EST Specimen requisition ordered. ??Separate Pathology report to follow Mani Sung MD PATHOLOGY/CYTOLOGY O PARTHA Performing Organization Address [facility] Co de Phone Number [facility] [place] [address] * Surgical Pathology Report (03/11/2017 3:21 PM EST) Final Diagnosis [id number] ? Location: [address] [place] [address]; The signing pathologist has (i) examined the relevant preparation(s) for the specimen(s) and (ii) rendered or confirmed the diagnosis(es). . ?Surgical Pathology DIAGNOSIS SECRETORY MENINGIOMA, grade I Electronically signed by: ??Jorge Luis Cervantes MD Verified: ??03/18/2017 ?Pathologist Performed at: ??-[facility] Dept. of Pathology, [place], [place] DISCUSSION The lesion excised from the [...] Block ??Antibody Result (Positive/Negative) B1 ??GFAP No AREA SALES MANAGER parenchyma is present. B1 ??KI67 Nuclear [...] segment of vazquez-pink fibrous tissue. Sections/Processing: (1) resources representative section of dark brown-black friable tissue; (2) resources representative section of vazquez-pink fibrous tissue (T2) ??sm ?Frozen Section FROZEN SECTION DIAGNOSIS A - Left sphenoid wing, smear and frozen section: ??Meningioma 03/11/17 15:52 Electronically signed by: ??Malika MODI, Jessy Mercado Verified: ??03/11/2017 ?Pathologist Performed at: ??-[facility] Dept. of Pathology, [place], [place] This intraoperative consultation should be interpreted as a preliminary diagnosis pending review of the entire specimen and special studies, if any. 03/18/2017 2:53 PM EST [facility] BRAIN STRUCTURE / Unknown 03/11/2017 3:21 PM EST 03/11/2017 3:21 PM EST BRAIN STRUCTURE / Unknown 03/11/2017 3:21 PM EST 03/11/2017 3:21 PM EST Mani Sung MD PATHOLOGY/CYTOLOGY O PARTHA [facility] [place] [address] * CT Head wo Contrast (Generic) (03/11/2017 [...] over 15 Minutes, ONCE, 1 dose, On 03/11/17 at 2030, Maximum dose of acetaminophen is [...] for scheduled level. Warning Vesicant/Irritant Medication , Routine, Indication for (Active or Suspected): Prophylaxis New Bag 03/12/2017 10:00 AM EST 1,000 [...] (See Alternative - Provider: Jordan Lopez RN) 002 (See Alternative - Provider: Jordan Lopez RN)0609 [...] RN) 0851 (See Alternative - Provider: Conner Daniel, MARIANNA)2004 (See Alternative - Provider: Denis Stout, MARIANNA) 923 (See Alternative - Provider: April Ignacio, RN) famotidine (PEPCID) tablet 20 mg(Linked Group 2) 20 mg, Oral, 2 TIMES DAILY, First dose on Sat03/11/17 at 2100, Until Discontinued, If unable to take PO, may give IV, Routine 2220 (See Alternative - Provider: Roxann Brice RN) 0851 (Given - Provider: Conner Daniel RN)2004 (Given - Provider: Denis Stout, MARIANNA) 923 (Given - Provider: April Ignacio, RN) levETIRAcetam (KEPPRA) 500 mg in sodium chloride 0.82% 100 mL (CANCELED)(Linked Group 3) 500 mg, Intravenous, at 400 mL/hr, 2 TIMES DAILY, First dose on Sat03/11/17 at 2100, Until Discontinued, Routine 2220 (New Bag - Provider: Roxann Brice RN)2234 (Stopped - Provider: Roxann Brice RN) 08 (See Alternative - Provider: Conner Daniel RN)2004 (See Alternative - Provider: Denis Stout, MARIANNA) 923 (See Alternative - Provider: April Ignacio, MARIANNA) levETIRAcetam (KEPPRA) tablet 500 mg(Linked Group 3) 500 mg, Oral, 2 TIMES DAILY, First dose on Sat03/11/17 at 2100, Until Discontinued, Routine 2220 (See Alternative - Provider: Roxann Brice RN)2234 (See Alternative - Provider: Roxann Brice RN) 08 (Given - Provider: Conner Daniel RN)2004 (Given - Provider: Denis Stout RN) 923 (Given - Provider: April Ignacio, RN) magnesium sulfate 2 g in sterile water 50 mL (COMPLETED) 2 g, Intravenous, ONCE, 1 dose, On Sat03/12/17 at 0245, Administer over 120 Minutes 0300 (New Bag - Provider: Jordan Lopez, MARIANNA)0500 (Stopped - Provider: Jordan Lopez, MARIANNA) [...] for scheduled level. Warning Vesicant/Irritant Medication , Routine, Indication for (Active or Suspected): Prophylaxis 2223 (New Bag - Provider: Roxann Brice [...] for scheduled level. Warning Vesicant/Irritant Medication , Routine, Indication for (Active or Suspected): Prophylaxis 1348 (Given - Provider: Marques Cook CRNA) [...] Routine 0209 (See Alternative - Provider: Jordan Lopez, MARIANNA)0850 (See Alternative - Provider: Conner Daniel, MARIANNA)1515 (See Alternative - Provider: Kristen Emmanuel RN)2120 (See Alternative - Provider: Denis Stout, MARIANNA) 0405 (See Alternative - Provider: Denis Stout, MARIANNA)0927 (See Alternative - Provider: April Ignacio, MARIANNA) [...] Stout, RN)0927 (Given - Provider: April Ignacio, MARIANNA) bacitracin injection (CANCELED) ONCE PRN, Starting on Sat03/11/17 at 1735, Until Sat03/13/17 at 1453, Intra-Operative (Intra-Procedure), Routine 1735 (Given - Provider: Mani Sung MD - Comment: 50367 units in a liter LR after dura [...] if ineffective 2004 (Given - Provider: Jordan Lopez RN) ondansetron (ZOFRAN) tablet 4 mg(Linked Group [...] Routine 2004 (See Alternative - Provider: Jordan Lopez RN) oxyCODONE (ROXICODONE) immediate release tablet 10 [...] (See Alternative - Provider: Denis Stout RN) 3 (See Alternative - Provider: Denis Stout RN) [...] Jordan Lopez RN)1614 (Given - Provider: Faustina Sewell RN)2010 (Given - Provider: Denis Stout RN) 12 [...] Routine documented in this encounter Care Teams Cake Wringer Relationship Specialty Start Date End Date Crystal Howell APRN [address] [place] [address] PCP - General Family Medicine 02/27/17 documented as of this encounter
--- OUTSIDE RECORDS SUMMARY | 2024-05-05 12:20 | XMS_ITS | Encounter Summary ---
Author Organization [facility] Address [facility] [place] [address] Care Team Providers Care Neuropsychology Division Chief Name Role Phone Crystal Howell APRN Primary Care Provider +1 -[phone] Reason for Referral * Diagnostic Test (Routine) - Closed Specialty Diagnoses / Procedures Referred By Contac t Referred To Contact Radiology Diagnoses Cerebral meningioma Procedures MRI Brain wwo Contrast (Generic) [facility] [address] [place] [address] [place] [address] Referral ID Status Reason Start Date Expiration Date V isits Requested Visits Authorized [id number] Closed Specialty Service Requested 04/23/2017 04/23/2018 2 2 Reason for Visit * Diagnostic Test (Routine) - Closed Specialty Diagnoses / Procedures Referred By Contac t Referred To Contact Radiology Diagnoses Cerebral meningioma Procedures MRI Brain wwo Contrast (Generic) [facility] [address] [place] [address] [place] [address] Referral ID Status Reason Start Date Expiration Date V isits Requested Visits Authorized [id number] Closed Specialty Service Requested 04/23/2017 04/23/2018 2 2 Encounter Details Date Type Department Care Team (Latest Contact Info) Description 07/11/2017 7:56 AM EST Hospital [place] [address] Mani Sung MD Cerebral meningioma Discharge Disposition: Home Social History [...] Dickerson AGE: 67 y.o. : 1950 [address] [facility] [address] Female [phone] (home) Telephone Information: Crystal Howell APRN No [...] ( XXX ) You must have a driver engineer present when you check in. This patient has been informed that they require a driver engineer to drive them home after this procedure. In the absence of a driver engineer, IR will not be able to sedate for your scan. Pt verbalized understanding of these instructions during the pre-procedure education via phone. Yes [place] of driver engineer: Rob Junior- partner Phone number PRIOR SCAN DATE/S SEDATION TYPE SUCCESSFUL 07/11/2017 MRI Brain W/WO Valium 5 MG PO Yes Revised 05/20/15 documented in this encounter Plan of Treatment Upcoming Encounters Date Type Department Care Team (Late st Contact Info) Description 05/15/2024 12:50 PM EST Hospital [place] [address] Goldie Maloney MD [address] [place] [address] 05/15/2024 1:50 PM [place] [address] Goldie Maloney MD [address] [place] [address] [phone] documented as of this encounter Procedures Procedure [...] Starting on [place] 07/11/17 at 0700, Until 07/12/17 at 0433, Anxiety, Angio/IR (Day of Procedure), Routine Given 07/11/2017 8:14 AM EST 5 mg documented in this encounter Care Teams Neuropsychology Division Chief Relationship Specialty Start Date End Date Crystal Howell, IMPREGNATOR AND DRIER [address] [place] [address] PCP - General Family Medicine 02/27/17 documented as of this encounter
--- OUTSIDE RECORDS SUMMARY | 2024-05-05 12:20 | XMS_ITS | Encounter Summary ---
Author Organization [facility] [place] [address] Care Team Providers Care Special Effects Designer Name Role Phone Crystal Howell APRN Primary Care Provider +1 -[phone] Encounter Details Date Type Department Care Team (Late st Contact Info) Description 04/23/2017 [place] [phone] Zeinab Braga Social History Tobacco Use Types [...] included. Mani Sung MD ?? Sent: [facility] April 11, 2017 10:09 AM ? To: Nina Grayson Neurosurgery [place] ?? Em Dickerson ( ) : 1950 ? Follow-up and Disposition ? Return in about 3 months (around 07/10/2017) for eval for tumor recurrence WITH MRI brain +/- contrast. documented in this encounter Plan of Treatment Upcoming Encounters Date Type Department Care Team (Late st Contact Info) Description 05/15/2024 12:50 PM EST [place] [address] Goldie Maloney MD [address] [place] [address] 05/15/2024 1:50 PM [place] [address] Goldie Maloney MD [address] [place] [address] [phone] documented as of this encounter Visit Diagnoses Not on filedocumented in this encounter Care Teams Special Effects Designer Relationship Specialty Start Date End Date Crystal Howell APRN [address] [place] [address] PCP - General Family Medicine 02/27/17 documented as of this encounter
--- OUTSIDE RECORDS SUMMARY | 2024-05-05 12:20 | XMS_ITS | Encounter Summary ---
[place] [address] Care Team Providers Care Shot Examiner Name Role Phone Crystal Howell APRN Primary Care Provider +1 -[phone] Encounter Details Date Type Department Care Team (Late st Contact Info) Description 04/10/2018 Telephone [place] [address] Melita Oviedo Social History Tobacco Use Types [...] 12:50 PM EST Hospital [place] [address] Goldie Maloney MD [address] [place], [place] [address] 05/15/2024 1:50 PM [place] [address] Goldie Maloney MD [address] [place], [place] [phone] documented as of this encounter Visit Diagnoses Not on filedocumented in this encounter Care Teams Shot Examiner Relationship Specialty Start Date End Date Crystal Howell APRN [address] [place], [place] [address] PCP - General Family Medicine 02/27/17 documented as of this encounter
--- OUTSIDE RECORDS SUMMARY | 2024-05-05 12:20 | XMS_ITS | Encounter Summary ---
Author Organization [facility] [place] [address] Care Team Providers Care Antique Clocks Repairer Name Role Phone Crystal Howell APRN Primary Care Provider +1 -[phone] Encounter Details Date Type Department Care Team (Late st Contact Info) Description 07/11/2017 Telephone [place] [address] Merary Sim Social History Tobacco Use Types [...] not included. Mani Sung MD ?? Sent: [facility] July 11, 2017 11:39 AM ? To: Nina Grayson Neurosurgery Senior Business Process Analyst ?? Tuan Em Benitez ( ) : 1950 ? Follow-up and Disposition ? Return in about 3 months (around 10/11/2017) for with MRI +/- contrast to eval for tumor recurrence. documented in this encounter Plan of Treatment Upcoming Encounters Date Type Department Care Team (Late st Contact Info) Description 05/15/2024 12:50 PM EST Hospital [place] [address] Goldie Maloney MD [address] [place] [address] 05/15/2024 1:50 PM [place] [address] Goldie Maloney MD [address] [place] [address] [phone] documented as of this encounter Visit Diagnoses Not on filedocumented in this encounter Care Teams Antique Clocks Repairer Relationship Specialty Start Date End Date Crystal Howell APRN [address] [place] [address] PCP - General Family Medicine 02/27/17 documented as of this encounter
--- OUTSIDE RECORDS SUMMARY | 2024-05-05 12:20 | XMS_ITS | Encounter Summary ---
Author Organization [facility] Address [facility] [place] [address] Care Team Providers Care Mandarin Tutor Name Role Phone Crystal Howell APRN Primary Care Provider +1 -[phone] Reason for Referral * Diagnostic Test (Routine) - Closed Specialty Diagnoses / Procedures Referred By Contac t Referred To Contact Radiology Diagnoses Meningioma Procedures MRI Brain wwo Contrast (Generic) Mani Sung MD [facility] [address] [place], [place] [address] [place] [address] Referral ID Status Reason Start Date Expiration Date V isits Requested Visits Authorized [id number] Closed Specialty Service Requested 05/12/2019 11/09/2020 1 1 Reason for Visit * Diagnostic Test (Routine) - Closed Specialty Diagnoses / Procedures Referred By Contac t Referred To Contact Radiology Diagnoses Meningioma Procedures MRI Brain wwo Contrast (Generic) Mani Sung MD [facility] [address] [place], [place] [address] [place] [address] Referral ID Status Reason Start Date Expiration Date V isits Requested Visits Authorized [id number] Closed Specialty Service Requested 05/12/2019 11/09/2020 1 1 Encounter Details Date Type Department Care Team (Latest Contact Info) Description 06/11/2019 12:07 PM EST - 06/11/2019 12:08 PM EST Hospital [place] [address] Mani Sung MD Meningioma Discharge Disposition: Home [...] Em Dickerson AGE: 69 y.o. : 1950 4 [facility] [address] Female [phone] (home) Telephone Information: Crysatl Howell APRN No primary care provider on file. Allergies Allergen Reactions ??? Iodine And Iodide Containing Products Anaphylaxis ??? Penicillins Hives ??? Nitrofurantoin Other (See Comments) Stomach upset Date/Time of call: June 08, 2019/10:03 AM/ PREVIOUS MRI SCAN? Yes SCHEDULED SCAN: MRI BRAIN WWO CONTRAST (GENERIC) [[id number]], 60 minutes, scanner 6 SUBJECTIVE: Claustrophobia CAN YOU LAY FLAT? yes AIRWAY ISSUES? no DO YOU HAVE ANY INVOLUNTARY MOVEMENTS? none DO YOU HAVE ANY PAIN? no DO YOU TAKE PAIN MED ON A DAILY BASIS? n/a ASSESSMENT: Appropriate for po sedation PLAN: Valium 2-4 mg po ( AA) You must have a frontload driver present when you check in. This patient has been informed that they require a frontload driver to drive them home after this procedure. In the absence of a frontload driver, IR will not be able to sedate for your scan. Pt verbalized understanding of these instructions during the pre-procedure education via phone. Yes Name of frontload driver: Willam Allison Phone number PRIOR SCAN [...] 12:50 PM EST Hospital [place] [address] Goldie Maloney MD [address] [place] [address] [phone] 05/15/2024 1:50 PM [place] [address] Goldie Maloney MD [address] [place] [address] [phone] documented as of this encounter Procedures Procedure [...] mg documented in this encounter Care Teams Mandarin Tutor Relationship Specialty Start Date End Date Crystal Howell APRN [address] [place] [address] PCP - General Family Medicine 02/27/17 documented as of this encounter
--- OUTSIDE RECORDS SUMMARY | 2024-05-05 12:20 | XMS_ITS | Encounter Summary ---
Author Organization [facility] Address [facility] [address] Care Team Providers Care Media Buyer Name Role Phone Crystal Howell APRN Primary Care Provider +1 -[phone] Reason for Referral * Diagnostic Test (Routine) - Closed Specialty Diagnoses / Procedures Referred By Haseeb messina Referred To Contact Radiology Diagnoses MGM (meningioma) Procedures MRI Brain wwo Contrast (Generic) Mani Sung MD [facility] [place] [address] [facility] [place] [address] Referral ID Status Reason Start Date Expiration Date V isits Requested Visits Authorized [id number] Closed Specialty Service Requested 11/22/2020 05/25/2022 1 1 Encounter Details Date Type Department Care Team (Late st Contact Info) Description 11/21/2020 [place] [address] Riya Call Social History Tobacco [...] 12:50 PM EST [place] [address] Goldie Maloney MD [address] [place] [address] [phone] 05/15/2024 1:50 [place] [address] Goldie Maloney MD [address] [place] [address] documented as of this encounter Results * [...] have questions please contact the health career development specialist that requested your imaging first. ? Electronically signed by: Anshul Abel MD, [facility] ([phone]), at 12/15/2020 11:47 AM Narrative 12/15/2020 11:47 AM EDT EXAMINATION: MRI BRAIN WWO CONTRAST (GENERIC) CLINICAL HISTORY: Brain/COLLECTIONS OFFICER neoplasm, surveillance Meningioma (D32.9) S/P L pterinal [...] MRI BRAIN WWO CONTRAST (GENERIC) CLINICAL HISTORY: Brain/COLLECTIONS OFFICER neoplasm, surveillance Meningioma (D32.9) S/P L pterinal [...] who have questions please contactthe health career development specialist that requested your imaging first. Mani Sung MD IMG MRI ORDERABLES documented in this encounter Visit Diagnoses Diagnosis MGM (meningioma) Benign neoplasm of cerebral meninges MGM (meningioma) Benign neoplasm of cerebral meninges documented in this encounter Care Teams Media Buyer Relationship Specialty Start Date End Date Crystal Howell, SAJAN [address] [place] [address] PCP - General Family Medicine 02/27/17 documented as of this encounter
--- OUTSIDE RECORDS SUMMARY | 2024-05-05 12:20 | XMS_ITS | Encounter Summary ---
Author Organization [facility] [place] [address] Care Team Providers Care Kidney Trimmer Name Role Phone Crystal Howell APRN Primary Care Provider +1 -[phone] Encounter Details Date Type Department Care Team (Late st Contact Info) Description 06/10/2019 [place] [address] Shari Brandon Social History Tobacco Use Types [...] caller: any Best number to reach caller: [phone] (M) Reason for call: Pt calling to inquire about labs for 2/ labs for MRI. Radiology informed she doesnot [...] 12:50 PM EST [place] [address] Goldie Maloney MD [address] [place] [address] 05/15/2024 1:50 PM [place] [address] Goldie Maloney MD [address] [place] [address] documented as of this encounter Visit Diagnoses Not on filedocumented in this encounter Care Teams Kidney Trimmer Relationship Specialty Start Date End Date Crystal Howell APRN [address] [place] [address] PCP - General Family Medicine 02/27/17 documented as of this encounter
--- OUTSIDE RECORDS SUMMARY | 2024-05-05 12:20 | XMS_ITS | Encounter Summary ---
Author Organization [facility]ly [facility] Address [facility] [place] [address] Care Team Providers Care Occupational Health Manager Name Role Phone Crystal Howell APRN Primary Care Provider +1 -[phone] Reason for Visit * Diagnostic Test (Routine) - Closed Specialty Diagnoses / Procedures Referred By Haseeb messina Referred To Contact Radiology Diagnoses Meningioma Procedures MRI Brain wwo Contrast (Generic) Mani Sung MD [facility] [place] [address] [facility] [place] [address] Referral ID Status Reason Start Date Expiration Date V isits Requested Visits Authorized [id number] Closed Specialty Service Requested 05/12/2019 11/09/2020 1 1 Encounter Details Date Type Department Care Team (Latest Contact Info) Description 06/11/2019 12:09 PM EST - 06/11/2019 11:59 PM [facility] Hospital [place] [address] Mani Sung MD Discharge Disposition: [...] 12:50 PM EST Hospital [place] [address] Goldie Maloney MD [address] [place] [address]998 05/15/2024 1:50 PM [place] [address] Goldie Maloney MD [address] [place] [address] [phone] documented as of this encounter Procedures Procedure [...] mLs documented in this encounter Care Teams Occupational Health Manager Relationship Specialty Start Date End Date Crystal Howell APRN [address] [place] [address] PCP - General Family Medicine 02/27/17 documented as of this encounter
--- OUTSIDE RECORDS SUMMARY | 2024-05-05 12:20 | XMS_ITS | Encounter Summary ---
Author Organization [facility] Address [facility] [place] [address] Care Team Providers Care Social Work Associate Name Role Phone Crystal Howell APRN Primary Care Provider +1 -[phone] Reason for Referral * Diagnostic Test (Routine) - Closed Specialty Diagnoses / Procedures Referred By Contac t Referred To Contact Radiology Diagnoses MGM (meningioma) Procedures MRI Brain wwo Contrast (Generic) Mani Sung MD [facility] [place] [address] [place] [address] Referral ID Status Reason Start Date Expiration Date V isits Requested Visits Authorized [id number] Closed Specialty Service Requested 11/22/2020 05/25/2022 1 1 Reason for Visit * Diagnostic Test (Routine) - Closed Specialty Diagnoses / Procedures Referred By Contac t Referred To Contact Radiology Diagnoses MGM (meningioma) Procedures MRI Brain wwo Contrast (Generic) Mani Sung MD [facility] [place] [address] [place] [address] Referral ID Status Reason Start Date Expiration Date V isits Requested Visits Authorized [id number] Closed Specialty Service Requested 11/22/2020 05/25/2022 1 1 Encounter Details Date Type Department Care Team (Latest Contact Info) Description 12/15/2020 8:10 AM EDT - 12/15/2020 8:12 AM EDT [place] [address] Mani Sung MD MGOj (meningioma) Discharge Disposition: Home Social History Tobacco [...] End Date fluticasone propionate (FLONASE) 50 mcg/actuation [place], Suspension SHAKE LIQUID AND USE 1 SPRAY IN EACH NOSTRIL TWICE DAILY 11/15/2020 [employer]UGS ORAL Take 2 tablets by mouth nightly as needed. Actually take CBD Oil 09/17/2023 documented as of this encounter Progress Notes * Kelly Samuels, RN - 12/15/2020 10:33 AM EDT MRI PRE-SEDATION ASSESSMENT NOTE NAME: Em Dickerson AGE: 70 y.o. : 1950 [address] [facility] [address] Female [phone] (home) Telephone Information: Crystal Howell APRN No primary care provider on file. Allergies Allergen Reactions ??? Iodine And Iodide Containing Products Anaphylaxis ??? Penicillins Hives ??? Nitrofurantoin Other (See Comments) Stomach upset Date/Time of call: December 09, 2020/12:33 PM/ PREVIOUS MRI SCAN? Yes SCHEDULED SCAN: MRI BRAIN WWO CONTRAST (GENERIC) [[id number]], 60 minutes, scanner 1 SUBJECTIVE: clasutrophobia CAN YOU LAY FLAT? yes AIRWAY/BREATHING ISSUES? no DO YOU HAVE ANY INVOLUNTARY MOVEMENTS? no DO YOU HAVE ANY PAIN? no DO YOU TAKE PAIN MED ON A DAILY BASIS? na ASSESSMENT: Pt is a good candidate for po sedation PLAN: Diazepam 2 mg x 4 po (DWP ) You must have a taxi cab driver present when you check in. This patient has been informed that they require a taxi cab driver to drive them home after this procedure. In the absence of a taxi cab driver, IR will not be able to sedate for your scan. Pt verbalized understanding of these instructions during the pre-procedure education via phone. Yes Joyce of taxi cab driver: Phone number: PRIOR SCAN DATE/S ?SEDATION [...] 12:50 PM EST [place] [address] Goldie Maloney MD [address] [place] [address] 05/15/2024 1:50 [place] [address] Goldie Maloney MD [address] [place] [address] documented as of this encounter Procedures Procedure [...] questions please contact the health career development associate that requested your imaging first. ? Electronically signed by: Anshul Abel MD, [facility] ([phone]), at 12/15/2020 11:47 AM Narrative 12/15/2020 11:47 AM EDT EXAMINATION: MRI BRAIN WWO CONTRAST (GENERIC) CLINICAL HISTORY: Brain/GAMBLING SUPERVISOR neoplasm, surveillance Meningioma (D32.9) S/P L pterinal [...] MRI BRAIN WWO CONTRAST (GENERIC) CLINICAL HISTORY: Brain/GAMBLING SUPERVISOR neoplasm, surveillance Meningioma (D32.9) S/P L pterinal [...] have questions please contactthe health career development associate that requested your imaging first. Electronically signed by: Anshul Abel MD, [facility]([phone]), at 12/15/2020 11:47 AM Mani Sung MD [...] mg documented in this encounter Care Teams Social Work Associate Relationship Specialty Start Date End Date Crystal Howell APRN [address] [place] [address] PCP - General Family Medicine 02/27/17 documented as of this encounter
--- OUTSIDE RECORDS SUMMARY | 2024-05-05 12:20 | XMS_ITS | Encounter Summary ---
Author Organization [place] [address] Care Team Providers Care Php Mysql Web Developer Name Role Phone Dante Crystalananth Lemos APRN Primary Care Provider +1 -[phone] Encounter Details Date Type Department Care Team (Late st Contact Info) Description 03/20/2017 [place] [address] Riya Call Social History Tobacco Use Types [...] 12:50 PM EST [place] [address] Goldie Maloney MD [address] [place] [address] 05/15/2024 1:50 PM [place] [address] Goldie Maloney MD [address] [place], [place] [phone] documented as of this encounter Visit Diagnoses Not on filedocumented in this encounter Care Teams Php Mysql Web Developer Relationship Specialty Start Date End Date Crystal Howell APRN [address] [place] [address] PCP - General Family Medicine 02/27/17 documented as of this encounter
--- OUTSIDE RECORDS SUMMARY | 2024-05-05 12:20 | XMS_ITS | Encounter Summary ---
Author Organization [facility] Address [facility] [place] [address] Care Team Providers Care Rod Straightener Name Role Phone Crystal Howell APRN Primary Care Provider +1 -[phone] Reason for Visit * Diagnostic Test (Routine) - Closed Specialty Diagnoses / Procedures Referred By Haseeb messina Referred To Contact Radiology Diagnoses Meningioma Procedures MRI Brain wwo Contrast (Generic) [facility] [address] [place] [address] [facility] [place] [address] Referral ID Status Reason Start Date Expiration Date V isits Requested Visits Authorized [id number] Closed Specialty Service Requested 08/13/2017 08/13/2018 1 1 Encounter Details Date Type Department Care Team (Latest Contact Info) Description 10/15/2017 9:04 AM EDT - 10/15/2017 11:59 PM EDT Hospital [place] [address] Mani Sung MD Discharge Disposition: [...] 12:50 PM EST [place] [address] Goldie Maloney MD [address] [place] [address] [phone] 05/15/2024 1:50 PM EST Appointment MRI [place] [address] Goldie Maloney MD [address] [place] [address] [phone] documented as of this encounter Procedures Procedure [...] mLs documented in this encounter Care Teams Rod Straightener Relationship Specialty Start Date End Date Crystal Howell APRN [address] [place], [place] [phone] PCP - General Family Medicine 02/27/17 documented as of this encounter
--- OUTSIDE RECORDS SUMMARY | 2024-05-05 12:20 | XMS_ITS | Encounter Summary ---
[place] [address] Care Team Providers Care Boring Inspector Name Role Phone Crystal Howell APRN Primary Care Provider +1 -[phone] Encounter Details Date Type Department Care Team (Late st Contact Info) Description 03/18/2017 Tele[place] [address] Brook Evans RN Social History Tobacco Use [...] 12:50 PM EST [place] [address] Goldie Maloney MD [address] [place] [address] 05/15/2024 1:50 PM [place] [address] Goldie Maloney MD [address] [place], [place] [address] documented as of this encounter Visit Diagnoses Not on filedocumented in this encounter Care Teams Boring Inspector Relationship Specialty Start Date End Date Crystal Howell APRN [address] [place], [place] [address] PCP - General Family Medicine 02/27/17 documented as of this encounter
--- OUTSIDE RECORDS SUMMARY | 2024-05-05 12:20 | XMS_ITS | Encounter Summary ---
Author Organization [facility] [place] [address] Care Team Providers Care Bottoming Room Supervisor Name Role Phone Crystal Howell APRN Primary Care Provider +1 -[phone] Encounter Details Date Type Department Care Team (Late st Contact Info) Description 09/06/2017 [place] [address] Merary Sim Social History Tobacco Use Types [...] 12:50 PM EST [place] [address] Goldie Maloney MD [address] [place], [place] [phone] 05/15/2024 1:50 PM [place] [address] Goldie Maloney MD [address] [place], [place] [phone] documented as of this encounter Visit Diagnoses Not on filedocumented in this encounter Care Teams Bottoming Room Supervisor Relationship Specialty Start Date End Date Crystal Howell APRN [address] [place], [place] [phone] PCP - General Family Medicine 02/27/17 documented as of this encounter
--- OUTSIDE RECORDS SUMMARY | 2024-05-05 12:20 | XMS_ITS | Encounter Summary ---
Author Organization [facility] Address [facility] [place] [address] Care Team Providers Care Gas Producer Name Role Phone Crystal Howell APRN Primary Care Provider +1 [phone] Reason for Referral * Diagnostic Test (Routine) - Closed Specialty Diagnoses / Procedures Referred By Contac t Referred To Contact Radiology Diagnoses Meningioma Procedures MRI Brain wwo Contrast (Generic) [facility] Neurosurgery [address] [place] [address] [place] [address] Referral ID Status Reason Start Date Expiration Date V isits Requested Visits Authorized [id number] Closed Specialty Service Requested 08/13/2017 08/13/2018 1 1 Reason for Visit * Diagnostic Test (Routine) - Closed Specialty Diagnoses / Procedures Referred By Contac t Referred To Contact Radiology Diagnoses Meningioma Procedures MRI Brain wwo Contrast (Generic) [facility] Neurosurgery [address] [place] [address] [place] [address] Referral ID Status Reason Start Date Expiration Date V isits Requested Visits Authorized [id number] Closed Specialty Service Requested 08/13/2017 08/13/2018 1 1 Encounter Details Date Type Department Care Team (Latest Contact Info) Description 10/15/2017 9:04 AM EDT - 10/15/2017 11:59 PM EDT Hospital Encounter MRI at [facility] [place] [address] Mani Sung MD Meningioma Discharge Disposition: Home [...] Dickerson AGE: 67 y.o. : 1950 [address] [facility] [address] Female [phone] (home) Telephone Information: Crystal Howell APRN No primary care provider on file. Allergies Allergen Reactions ??? Iodine And Iodide Containing Products Anaphylaxis ??? Penicillins Hives ??? Nitrofurantoin Other (See Comments) Stomach upset Date/Time of call: October 10, 2017/9:14 AM/ PREVIOUS MRI SCAN? Yes HEIGHT: WEIGHT: SCHEDULED SCAN: MRI BRAIN WWO CONTRAST [[id number]] (Head first, 60 minutes) SUBJECTIVE: The last [...] a cloth over eyes in scanner. ( ) You must have a screw driver operator present when you check in. This patient has been informed that they require a screw driver operator to drive them home after this procedure. In the absence of a screw driver operator, IR will not be able to sedate for your scan. Pt verbalized understanding of these instructions during the pre-procedure education via phone. Yes Name of screw driver operator: Willam Phone number PRIOR SCAN DATE/S SEDATION TYPE SUCCESSFUL 07/11/2017 MRI Brain W/WO Valium 5 MG PO Yes 10/15/2017 MRI Brain WWO Valium 5 MG PO ??Yes ? Revised documented in this encounter Plan of Treatment Upcoming Encounters Date Type Department Care Team (Late st Contact Info) Description 05/15/2024 12:50 PM EST [place] [address] Goldie Maloney MD [address] [place] [phone] 05/15/2024 1:50 PM [place] [address] Goldie Maloney MD [address] [place] [address] [phone] documented as of this encounter Procedures Procedure [...] meninges documented in this encounter Care Teams Gas Producer Relationship Specialty Start Date End Date Crystal Howell, CHECKER PRODUCT DESIGN [address] [place] [address] PCP - General Family Medicine 02/27/17 documented as of this encounter
--- OUTSIDE RECORDS SUMMARY | 2024-05-05 12:20 | XMS_ITS | Encounter Summary ---
Author Organization [facility] [place] [address] Care Team Providers Care Fire Boss Name Role Phone Crystal Howell APRN Primary Care Provider +1 [phone] Reason for Referral * Diagnostic Test (Routine) - Closed Specialty Diagnoses / Procedures Referred By Haseeb messina Referred To Contact Radiology Diagnoses Meningioma Procedures MRI Brain wwo Contrast (Generic) [facility] Neurosurgery [address] [place] [address] [facility] [place] [address] Referral ID Status Reason Start Date Expiration Date V isits Requested Visits Authorized [id number] Closed Specialty Service Requested 08/13/2017 08/13/2018 1 1 Encounter Details Date Type Department Care Team (Late st Contact Info) Description 08/13/2017 [place] [address] Brook Evans RN Meningioma Social [...] 12:50 PM EST [place] [address] Goldie Maloney MD [address] [place] [phone] 05/15/2024 1:50 [place] [address] Goldie Maloney MD [address] [place] [address] documented as of this encounter Results [...] meninges documented in this encounter Care Teams Fire Boss Relationship Specialty Start Date End Date Crystal Howell, CREEL OPERATOR [address] [place] [address] PCP - General Family Medicine 02/27/17 documented as of this encounter
--- OUTSIDE RECORDS SUMMARY | 2024-05-05 12:20 | XMS_ITS | Encounter Summary ---
Author Organization [facility] [place] [address] Care Team Providers Care Political Science Instructor Name Role Phone Crystal Howell APRN Primary Care Provider +1 [phone] Reason for Referral * Diagnostic Test (Routine) - Closed Specialty Diagnoses / Procedures Referred By Haseeb messina Referred To Contact Radiology Diagnoses Cerebral meningioma Procedures MRI Brain wwo Contrast (Generic) [facility] Neuro[facility] [address] [place] [address] [facility] [place] [address] Referral ID Status Reason Start Date Expiration Date V isits Requested Visits Authorized [id number] Closed Specialty Service Requested 04/23/2017 04/23/2018 2 2 Encounter Details Date Type Department Care Team (Late st Contact Info) Description 04/23/2017 [place] [address] Brook Evans RN Cerebral meningioma [...] 12:50 PM [place] [address] Goldie Maloney MD [address] [place] [phone] 05/15/2024 1:50 [place] [address] Goldie Maloney MD [address] [place] [address] documented as of this encounter Results [...] meninges documented in this encounter Care Teams Political Science Instructor Relationship Specialty Start Date End Date Crystal Howell APRN [address] [place] [address] PCP - General Family Medicine 02/27/17 documented as of this encounter
--- OUTSIDE RECORDS SUMMARY | 2024-05-05 12:20 | XMS_ITS | Encounter Summary ---
Author Organization [facility] Address [facility] [place] [address] Care Team Providers Care Appeals Rn Name Role Phone Crystal Howell APRN Primary Care Provider +1 -[phone] Reason for Referral * Diagnostic Test (Routine) - Closed Specialty Diagnoses / Procedures Referred By Contac t Referred To Contact Radiology Diagnoses Meningioma Procedures MRI Brain wwo Contrast (Generic) [facility] [address] [place] [address] [place] [address] Referral ID Status Reason Start Date Expiration Date V isits Requested Visits Authorized [id number] Closed Specialty Service Requested 10/23/2017 10/23/2018 2 2 Reason for Visit * Diagnostic Test (Routine) - Closed Specialty Diagnoses / Procedures Referred By Contac t Referred To Contact Radiology Diagnoses Meningioma Procedures MRI Brain wwo Contrast (Generic) [facility] [address] [place] [address] [place] [address] Referral ID Status Reason Start Date Expiration Date V isits Requested Visits Authorized [id number] Closed Specialty Service Requested 10/23/2017 10/23/2018 2 2 Encounter Details Date Type Department Care Team (Latest Contact Info) Description 04/10/2018 7:55 AM EST - 04/10/2018 7:57 AM EST Hospital [place] [address] Mani Sung MD Meningioma Discharge Disposition: Home [...] y.o. : 1950 [address] [facility] [address] Female [phone] (home) Telephone Information: Crystal Howell APRN No primary care provider on file. Allergies Allergen Reactions ??? Iodine And Iodide Containing Products Anaphylaxis ??? Penicillins Hives ??? Nitrofurantoin Other (See Comments) Stomach upset Date/Time of call: April 07, 2018/8:41 AM/ PREVIOUS MRI SCAN? Yes HEIGHT: 5'7 WEIGHT: 157 SCHEDULED SCAN: MRI BRAIN WWO CONTRAST [[id number]] SUBJECTIVE: Claustrophobic CAN YOU LAY FLAT? No AIRWAY ISSUES? No DO YOU HAVE ANY INVOLUNTARY MOVEMENTS? No DO YOU HAVE ANY PAIN? No DO YOU TAKE PAIN MED ON A DAILY BASIS? No ASSESSMENT: Appropriate for PO sedation PLAN: Valium 5-10 mg PO ( mp ) You must have a non emergency services ambulance driver present when you check in. This patient has been informed that they require a non emergency services ambulance driver to drive them home after this procedure. In the absence of a non emergency services ambulance driver, IR will not be able to sedate for your scan. Pt verbalized understanding of these instructions during the pre-procedure education via phone. Yes [place] of non emergency services ambulance driver: Willam Phone number PRIOR SCAN DATE/S [...] 12:50 PM EST Hospital Encounter MRI at [place] [phone] Goldie Maloney MD [address] [place] [address] [phone] 05/15/2024 1:50 PM EST [place] [address] Goldie Maloney MD [address] [place] [address] [phone] documented as of this encounter Procedures Procedure [...] 3:01 PM 3:01 PM Mani Sung MD IM MRI ORDERABLES documented in this encounter Visit [...] mg documented in this encounter Care Teams Appeals Rn Relationship Specialty Start Date End Date Crystal Howell, SAJAN [address] [place] [address] PCP - General Family Medicine 02/27/17 documented as of this encounter
--- OUTSIDE RECORDS SUMMARY | 2024-05-05 12:20 | XMS_ITS | Encounter Summary ---
Author Organization [facility] Address [facility] [place] [address] Care Team Providers Care Field Contractor Name Role Phone Crystal Howell APRN Primary Care Provider [phone] -[phone] Reason for Referral * Diagnostic Test (Routine) - Closed Specialty Diagnoses / Procedures Referred By Haseeb messina Referred To Contact Radiology Diagnoses Meningioma Procedures MRI Brain wwo Contrast (Generic) Mani Sung MD [facility] [place] [place] [address] [place] [address] Referral ID Status Reason Start Date Expiration Date V isits Requested Visits Authorized [id number] Closed Specialty Service Requested 05/12/2019 11/09/2020 1 1 Encounter Details Date Type Department Care Team (Late st Contact Info) Description 05/12/2019 Orders [place] [address] Brook Evans RN Meningioma Social [...] 12:50 PM EST Hospital [place] [address] Goldie Maloney MD [address] [place] [address] [phone] 05/15/2024 1:50 PM [place] [address] Goldie Maloney MD [address] [place] [address] documented as of this encounter Results [...] meninges documented in this encounter Care Teams Field Contractor Relationship Specialty Start Date End Date Crystal Howell APRN [address] [place] [address] PCP - General Family Medicine 02/27/17 documented as of this encounter
--- OUTSIDE RECORDS SUMMARY | 2024-05-05 12:20 | XMS_ITS | Encounter Summary ---
Author Organization [facility] Address [facility] [place] [address] Care Team Providers Care Refrigeration Plant Cork Insulator Name Role Phone Eunice Howell APRN Primary Care Provider [phone] -[phone] Reason for Visit * Reason Comments Skin Check Encounter Details Date Type Department Care Team (Late st Contact Info) Description 01/10/2018 9:00 AM EDT Office Visit Dermatology at [facility] [address] [place] [address] Eunice Regalado MD Seborrheic keratosis, inflamed; Green angioma; Cafe au [...] original note were not included. DERMATOLOGY AT [facility] D[facility]at[facility] At [facility] [address] [facility] [address] FOLLOW-UP Date of service: 01/10/2018 Em Dickerson : 1950 Provider: Eunice Regalado MD Preferred name: Em SKIN HISTORY: 07/2016: Left cheek, Melanoma, MIS - s/p Mohs at [facility] 08/2016 DIAGNOSIS Skin, left cheek, punch ?? [...] Left cheek.. 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 Eunice Regalado MD Section of Dermatology [facility] documented in this encounter Plan of Treatment Upcoming Encounters Date Type Department Care Team (Late st Contact Info) Description 05/15/2024 12:50 PM EST [place] [address] Goldie Maloney MD [address] [place] [phone] 05/15/2024 1:50 [place] [address] Goldie Maloney MD [address] [place] [address] [phone] documented as of this encounter Visit Diagnoses Diagnosis Seborrheic keratosis, inflamed Inflamed seborrheic keratosis Green angioma Nevus, non-neoplastic Cafe au lait spots Ephelides Other dyschromia Dermatofibroma Benign neoplasm of skin, site unspecified Benign nevus Benign neoplasm of skin, site unspecified Hx of melanoma in situ Personal history of malignant melanoma of skin documented in this encounter Care Teams Refrigeration Plant Cork Insulator Relationship Specialty Start Date End Date Eunice Howell APRN [address] [place], [place] [address] PCP - General Family Medicine 02/27/17 documented as of this encounter
--- OUTSIDE RECORDS SUMMARY | 2024-05-05 12:20 | XMS_ITS | Encounter Summary ---
Author Organization [facility] Address [facility] [place] [address] Care Team Providers Care Restaurant Kitchen Manager Name Role Phone Crystal Howell APRN Primary Care Provider +1 -[phone] Reason for Visit * Reason Comments Follow-up Encounter Details Date Type Department Care Team (Late st Contact Info) Description 04/11/2017 9:30 AM EST Office [place] [address] Mani Sung MD Meningioma Social History Tobacco [...] 12:50 PM EST [place] [address] Goldie Maloney MD [address] [place] [phone] 05/15/2024 1:50 PM [place] [address] Goldie Maloney MD [address] [place], [place] [address] documented as of this encounter Visit Diagnoses Diagnosis Meningioma Benign neoplasm of cerebral meninges documented in this encounter Care Teams Restaurant Kitchen Manager Relationship Specialty Start Date End Date Crystal Howell APRN [address] [place] [address] PCP - General Family Medicine 02/27/17 documented as of this encounter
--- OUTSIDE RECORDS SUMMARY | 2024-05-05 12:20 | XMS_ITS | Encounter Summary ---
Author Organization [facility] Address [facility] [place] [address] Care Team Providers Care Colon And Rectal Surgeon Name Role Phone Crystal Howell APRN Primary Care Provider +1 -[phone] Encounter Details Date Type Department Care Team (Late st Contact Info) Description 10/28/2020 Telephone Dermatology at [facility] [address] [place] [address] Crystal Yo MD Social History Tobacco Use Types Packs/Day Years [...] st Contact Info) Description 05/15/2024 12:50 PM [facility] Hospital [place] [address] Goldie Maloney MD [address] [place] [address] 05/15/2024 1:50 PM [place] [address] Goldie Maloney MD [address] [place], [place] [address] documented as of this encounter Visit Diagnoses Not on filedocumented in this encounter Care Teams Colon And Rectal Surgeon Relationship Specialty Start Date End Date Crystal Howell APRN [address] [place], [place] [address] PCP - General Family Medicine 02/27/17 documented as of this encounter
--- OUTSIDE RECORDS SUMMARY | 2024-05-05 12:20 | XMS_ITS | Encounter Summary ---
Author Organization [facility] Address [facility] [place] [address] Care Team Providers Care Supervisor Of Instruction Name Role Phone Crystal Howell APRN Primary Care Provider +1 -[phone] Encounter Details Date Type Department Care Team (Late st Contact Info) Description 11/18/2017 Telephone Dermatology at [facility] [address] [place] [address] Crystal Yo MD Social History Tobacco Use [...] st Contact Info) Description 05/15/2024 12:50 PM [facility] Hospital [place] [address] Goldie Maloney MD [address] [place] [address] 05/15/2024 1:50 PM [place] [address] Goldie Maloney MD [address] [place] [address] documented as of this encounter Visit Diagnoses Not on filedocumented in this encounter Care Teams Supervisor Of Instruction Relationship Specialty Start Date End Date Crystal Howell APRN [address] [place], [place] [phone] PCP - General Family Medicine 02/27/17 documented as of this encounter
--- OUTSIDE RECORDS SUMMARY | 2024-05-05 12:20 | XMS_ITS | Encounter Summary ---
Author Organization [facility] Address [facility] [place] [address] Care Team Providers Care Histotechnician Name Role Phone DanteDyanCrystalananth Lemos APRN Primary Care Provider +1 -[phone] Encounter Details Date Type Department Care Team (Late st Contact Info) Description 04/24/2017 Orders [place] [address] Riya Call Social History Tobacco Use Types [...] 12:50 PM EST Hospital [place] [address] Goldie Maloney MD [address] [place] [address] 05/15/2024 1:50 PM [place] [address] Goldie Maloney MD [address] [place] [address] documented as of this encounter Visit Diagnoses Not on filedocumented in this encounter Care Teams Histotechnician Relationship Specialty Start Date End Date Crystal Howell APRN [address] [place] [address] PCP - General Family Medicine 02/27/17 documented as of this encounter
--- OUTSIDE RECORDS SUMMARY | 2024-05-05 12:21 | XMS_ITS | Encounter Summary ---
Author Organization [facility] Address [facility] [place] [address] Care Team Providers Care Certified Lactation Educator Name Role Phone Tawanna Kelly APRN Primary Care Provider Encounter Details Date Type Department Care Team (Late st Contact Info) Description 07/31/2016 Telephone Dermatology Mohs at [address] [phone] Madai Jarquin Social History Tobacco Use Types [...] slow mohs procedure with Dr. Segovia in [place]. Pt has decided to have slow mohs done at [facility] due to travel reasons. I informed patient that I would let Dr. Segovia and Josiane know her decision. documented in this encounter Plan of Treatment Upcoming Encounters Date Type Department Care Team (Late st Contact Info) Description 05/15/2024 12:50 PM EST Hospital [place] [address] Goldie Maloney MD [address] [place], [place] [phone] 05/15/2024 1:50 PM [place] [address] Goldie Maloney MD [address] [place], [place] [phone] documented as of this encounter Visit Diagnoses Not on filedocumented in this encounter Care Teams Certified Lactation Educator Relationship Specialty Start Date End Date Tawanna Kelly APRN [address] [place] [address] [address] [place], [place] [address] PCP - General Family Medicine 07/17/16 02/26/17 documented as of this encounter
--- OUTSIDE RECORDS SUMMARY | 2024-05-05 12:21 | XMS_ITS | Encounter Summary ---
Author Organization [facility] [place] [address] Care Team Providers Care Pool Coordinator Name Role Phone Crystal Howell APRN Primary Care Provider [phone] Reason for Visit * Auth/Cert Specialty Diagnoses [...] Expiration Date Visits Re quested Visits Authorized [id number] 1 1 Encounter Details Date Type Department Care Team (Late st Contact Info) Description 03/11/2017 1:07 PM EST Anesthesia Event [facility] [place] [address] Sharan Vega MD Rubenberg, Lisa A, CRNA [facility] [place] [address] Anesthesia Record Procedure Summary Procedure Name Responsible [...] stop data 1849 Recovery or ICU Handoff Craa ent care was transferred to the destination [...] by April Ignacio, RN ETT Mask Ventilation: Too lindquist (1); ETT Type: Cuffed, Oral; ETT Size: [...] indicated; 03/12/17; 0800 03/11/17 1329 by Marques Cook CRNA 03/12/17 0800 by Conner Daniel, RN Urethral Catheter 03/11/17; 1330; indwelling double [...] 03/11/17; 1337; other (see comments) (right saphenous); [id number]-phsojp catheter system; 18 gauge; 0; Removed by previous RN; 03/11/17; 1850 03/11/17 1337 by Marques Cook CRNA 03/11/17 1850 by Jordan Lopez RN Incision [...] Pederson MD - 03/14/2017 3:06 PM EST [facility] [place] of Anesthesiology Post-procedure Note Patient: Linda Dickerson Procedure Summary Date Anesthesia Start Anesthesia Stop Room / Location 03/11/17 8115 0357 [facility] 2 / [facility] Procedure Diagnosis Surgeon Responsible Provider @CRANI, FOR TUMOR, SUPRATENTORIAL, MENINGIOMA (WRVU 37.14) (Left Head); STEREOTACTIC COMPUTER-ASSTDNAVIGATIONAL CRANIAL INTRADURAL (WRVU 3.75) (Left Head); MODIFIER STEALTH (N/A Head); MICROSCOPE USE (WRVU 3.46) (N/A Head) (MENINGIOMA) Mani Sung MD Evans, Rebecca E, MD All Anesthesia Providers: Anesthesiologist: Tejas Pederson MD; Sharan Vega MD CHURCH ORGANIST: Marques Cook CRNA Most Recent Vitals: 03/13/17 0800 BP: 153/78 Pulse: 80 Resp: 18 Temp: 36.5 ??C (97.7 ??F) SpO2: 100% Pain ANES POST EVAL * Anesthesia Postprocedure Evaluation - Tejas Pederson MD - 03/11/2017 9:14 PM EST [facility] [place] of Anesthesiology Post-procedure Note Patient: Linda Dickerson Procedure Summary Date Anesthesia Start Anesthesia Stop Room / Location 03/11/17 3315 2217 [facility] Procedure Diagnosis Surgeon Responsible Provider @CRANI, FOR TUMOR, SUPRATENTORIAL, MENINGIOMA (WRVU 37.14) (Left Head); STEREOTACTIC COMPUTER-ASSTDNAVIGATIONAL CRANIAL INTRADURAL (WRVU 3.75) (Left Head); MODIFIER STEALTH (N/A Head); MICROSCOPE USE (WRVU 3.46) (N/A Head) (MENINGIOMA) Mani Sung MD Evans, Rebecca E, MD All Anesthesia Providers: Anesthesiologist: Tejas Pederson MD; Sharan Vega MD CHURCH ORGANIST: Marques Cook CRNA Most Recent Vitals: 03/11/17 1900 BP: Pulse: [...] DIAGNOSTIC performed by Kirsten Singleton MD at [facility] ENDOSCOPY Social History Substance Use Topics [...] night, and this was evaluated by her elevator constructor electric who felt it was related to age-related [...] risks discussed with patient. Plan discussed with CHURCH ORGANIST. PAT Staff Note documented in this encounter Plan of Treatment Upcoming Encounters Date Type Department Care Team (Late st Contact Info) Description 05/15/2024 12:50 PM EST [place] [address] Goldie Maloney MD [address] [place] [address] 05/15/2024 1:50 PM [place] [address] Goldie Maloney MD [address] [place] [phone] documented as of this encounter Visit Diagnoses [...] Routine, Indication for (Active or Suspected): Prophylaxis Given 03/11/2017 1:48 PM EST 1.5 g documented in this encounter Care Teams Pool Coordinator Relationship Specialty Start Date End Date Crystal Howell APRN [address] [place] [address] PCP - General Family Medicine 02/27/17 documented as of this encounter
--- OUTSIDE RECORDS SUMMARY | 2024-05-05 12:21 | XMS_ITS | Encounter Summary ---
Author Organization [facility] Address One [facility] [place] [address] Care Team Providers Care Drafting Layout Worker Name Role Phone Tank Lazaro APRN Primary Care Provider Encounter Details Date Type Department Care Team (Latest Contact Info) Description 09/21/2011 9:38 AM EDT - 09/21/2011 11:59 PM EDT Hospital Encounter XRay at [address] [place] [address] CLINIC, DR LASHAE Peter, Damir Roth MD Claudication leg paresthesias; Stenosis of lateral recess [...] 12:50 PM EST Hospital [place] [address] Goldie Maloney MD [address] [place] [address] [phone] 05/15/2024 1:50 PM EST [place] [address] Goldie Maloney MD [address] [place] [address] documented as of this encounter Procedures Procedure [...] claudication documented in this encounter Care Teams Drafting Layout Worker Relationship Specialty Start Date End Date Tank Lazaro APRN PCP - General 09/10/11 12/27/14 documented as of this encounter
--- OUTSIDE RECORDS SUMMARY | 2024-05-05 12:21 | XMS_ITS | Encounter Summary ---
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
--- OUTSIDE RECORDS SUMMARY | 2024-05-05 12:21 | XMS_ITS | Encounter Summary ---
Author Organization [facility] Address [facility] [place] [address] Care Team Providers Care Six Pack Loader Operator Name Role Phone Tawanna Kelly APRN Primary Care Provider [phone] Encounter Details Date Type Department Care Team (Late st Contact Info) Description 08/02/2016 Telephone Dermatology at [facility] [address] [place] [address] Tal Cha MD Social History Tobacco Use Types Packs/Day [...] fax her path and office notes to [facility]. documented in this encounter Plan of Treatment Upcoming Encounters Date Type Department Care Team (Late st Contact Info) Description 05/15/2024 12:50 PM EST [place] [address] Goldie Maloney MD [address] [place] [address] 05/15/2024 1:50 PM [place] [address] Goldie Maloney MD [address] [place] [address] documented as of this encounter Visit Diagnoses Not on filedocumented in this encounter Care Teams Six Pack Loader Operator Relationship Specialty Start Date End Date Tawanna Kelly APRN [facility] [address] [place] [address] PCP - General Family Medicine 07/17/16 02/26/17 documented as of this encounter
--- OUTSIDE RECORDS SUMMARY | 2024-05-05 12:21 | XMS_ITS | Encounter Summary ---
Author Organization [facility] Address [facility] [place] [address] Care Team Providers Care Compo Caster Name Role Phone Tawanna Kelly APRN Primary Care Provider [phone] Encounter Details Date Type Department Care Team (Late st Contact Info) Description 07/31/2016 Telephone Dermatology at [facility] [address] [place] [address] Tal Cha MD Social History Tobacco Use [...] have MIS on r cheek done at [facility]. documented in this encounter Plan of Treatment Upcoming Encounters Date Type Department Care Team (Late st Contact Info) Description 05/15/2024 12:50 PM EST [place] [address] Goldie Maloney MD [address] [place] [address] 05/15/2024 1:50 PM [place] [address] Goldie Maloney MD [address] [place], [place] [address] documented as of this encounter Visit Diagnoses Not on filedocumented in this encounter Care Teams Compo Caster Relationship Specialty Start Date End Date Tawanna Kelly APRN [employer] [facility] [place] [address] [place] [place] [address] PCP - General Family Medicine 07/17/16 02/26/17 documented as of this encounter
--- OUTSIDE RECORDS SUMMARY | 2024-05-05 12:21 | XMS_ITS | Encounter Summary ---
Author Organization [facility] Address [facility] [place] [address] Care Team Providers Care Lithographic Photographer Apprentice Name Role Phone Gayatri Claros APRN Primary Care Provider [phone] Reason for Visit * Auth/Cert Specialty Diagnoses / Procedures Referred By Haseeb messina Referred To Contact Diagnoses 10 yr surv from 04/17/04 Procedures PRO COLONOSCOPY, DIAGNOSTIC COLONOSCOPY, DIAGNOSTIC Referral ID Status Reason Start Date Expiration Date Visits Re quested Visits Authorized [id number] 1 1 Encounter Details Date Type Department Care Team (Late st Contact Info) Description 02/14/2015 1:30 PM EDT - 02/14/2015 2:30 PM EDT Surgery [place] [address] Kirsten Singleton MD [facility] [place] [address] COLONOSCOPY, DIAGNOSTIC (WRVU 3.26) Social History Tobacco [...] to be checked. Saturday-Saturday Same Day Endo [phone] Otherwise contact [phone] and ask to speak to the office lead pre owned sales consultant Follow up care is a crespo part [...] 12:50 PM EST Hospital [place] [address] Goldie Maloney MD [address] [place] [address] 05/15/2024 1:50 PM [place] [address] Goldie Maloney MD [address] [address] documented as of this encounter Procedures Procedure Name Priority Date/Time Associated Diagnosis Comments COLONOSCOPY, DIAGNOSTIC (WRVU 3.26) 02/14/2015 1:41 PM EDT 10 yr surv from 04/17/04 COLONOSCOPY Routine 02/14/2015 12:45 PM EDT documented in this encounter Results * COLONOSCOPY (02/14/2015 12:45 PM EDT) COLONOSCOPY [facility] Endoscopy Patient Name: Em Dickerson ? Procedure Date: 02/14/2015 12:45 PM ? N: [id number] ? Date of : 1950 ? Age: 64 ? Order #: [id number] ? Procedure: ? Colonoscopy Indications: ? Screening for colorectal malignant ? neoplasm Providers: ? Kirsten Singleton MD, Lisa Lopez RN, ? Lisa Herrmann, Diesel Service Journeyman Referring MD: ?Gayatri Claros MD Medicines: ? [...] uncomfortavle) documented in this encounter Care Teams Lithographic Photographer Apprentice Relationship Specialty Start Date End Date Gayatri Claros APRN PCP - General 12/28/14 07/01/16 documented as of this encounter
--- OUTSIDE RECORDS SUMMARY | 2024-05-05 12:21 | XMS_ITS | Encounter Summary ---
Author Organization [facility] Address [facility] [place] [address] Care Team Providers Care Document Specialist Name Role Phone RobinTawanna SAJAN Primary Care Provider [phone] Reason for Visit * Reason Comments Brain Tumor MENINGIOMA... 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 Ambar Harrison APRN [address] [place] [address] Mani Sung MD [facility] [place] [address] Referral ID Status Reason Start Date Expiration Date V isits Requested Visits Authorized [id number] Consult, Test & Treat Connection Center 01/29/2017 01/29/2018 1 1 Encounter Details Date Type Department Care Team (Late st Contact Info) Description 02/21/2017 9:30 AM EDT [place] [address] Mani Sung MD Meningioma Social History Tobacco [...] in this encounter Progress Notes * Mallory Lundy, SAJAN - 02/21/2017 9:30 AM EDT Name: Em [...] surgery. Late summer had an appointment with software licensing specialist due to syncopal symptoms which was at [...] leg Remote, brief smoking history. Ultrasound at [facility]. PCP is Mariam Hernandez @ [facility]. Takes fish oil. PAST MEDICAL HISTORY Patient Active Problem List Diagnosis Code ??? 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 Claudication leg paresthesias I73.9 History reviewed. No pertinent past medical history. Past Surgical History: Procedure Laterality Date ??? PRO COLONOSCOPY, DIAGNOSTIC N/A 02/14/2015 COLONOSCOPY, DIAGNOSTIC performed by Kirsten Singleton MD at [facility] ENDOSCOPY ALLERGIES Allergies Allergen Reactions ??? Iodine And Iodide Containing Products Anaphylaxis ??? Penicillins Hives ??? Nitrofurantoin Other (See Comments) Stomach upset MEDICATIONS Current Outpatient Prescriptions: ??? HERBAL DRUGS ORAL, Take 2 tablets by mouth nightly as needed. [facility] , Disp: , Rfl: SOCIAL [...] melanoma in August 2016, then saw a software licensing specialist for near syncopal episodes. As part of [...] night, and this was evaluated by her shellfish bed worker who felt it was related to age-related changes in her eye. On exam, her neurological exam is unremarkable. We discussed her MRI from 02/16 which demonstrates an enhancing dural-based mass along the lateral sphenoid wing, as well as extensive edema along nearly her entire left temporal lobe. She had previously undergone neurosurgical evaluation at [facility] and at [facility] with Dr. Irby, and thus was [...] interested in moving forward with surgery at [facility] and a consent for surgery was signed. Mani Sung MD Total visit time 60 minutes, of which 40 were spent counseling and coordinating care, including reviewing relevant imaging, lab results, and/or medical records. documented in this encounter Plan of Treatment Upcoming Encounters Date Type Department Care Team (Late st Contact Info) Description 05/15/2024 12:50 PM EST [place] [address] Goldie Maloney MD [address] [place] [address] 05/15/2024 1:50 PM [place] [address] Goldie Maloney MD [address] [place] [address] documented as of this encounter Visit Diagnoses Diagnosis Meningioma Benign neoplasm of cerebral meninges documented in this encounter Care Teams Document Specialist Relationship Specialty Start Date End [place] [address] PCP - General Family Medicine 07/17/16 02/26/17 documented as of this encounter
--- OUTSIDE RECORDS SUMMARY | 2024-05-05 12:21 | XMS_ITS | Encounter Summary ---
Author Organization [facility] Address [facility] [place] [address] Care Team Providers Care Oyster Washer Name Role Phone Tawanna Kelly APRN Primary Care Provider [phone] Encounter Details Date Type Department Care Team (Late st Contact Info) Description 08/10/2016 Telephone Dermatology at [facility] [address] [place] [address] Tal Cha MD Social History Tobacco Use [...] fax her pathology and office notes to [facility]Tommie Stacy MD FAX [phone] PHONE [phone]. I have done. documented in this encounter Plan of Treatment Upcoming Encounters Date Type Department Care Team (Late st Contact Info) Description 05/15/2024 12:50 PM [facility] Hospital Encounter MRI at [facility] [place] [address] Goldie Maloney MD [address] [place] [address] 05/15/2024 1:50 PM [place] [address] Goldie Maloney MD [address] [place], [place] [phone] documented as of this encounter Visit Diagnoses Not on filedocumented in this encounter Care Teams Oyster Washer Relationship Specialty Start Date End Date Tawanna Kelly APRN [facility] [address] [facility] [place] [address] PCP - General Family Medicine 07/17/16 02/26/17 documented as of this encounter
--- OUTSIDE RECORDS SUMMARY | 2024-05-05 12:21 | XMS_ITS | Encounter Summary ---
Author Organization [facility] Address [facility] [place] [address] Care Team Providers Care Auto Brake Technician Name Role Phone Tawanna Kelly APRN Primary Care Provider [phone] Encounter Details Date Type Department Care Team (Latest Contact Info) Description 02/16/2017 - 02/16/2017 11:59 PM EDT Hospital Encounter Radiology Library at [facility] [address] Mani Sung MD Discharge Disposition: Home Social [...] EST Hospital [place] [address] Goldie Maloney MD [address] [place], [place] [address] 05/15/2024 1:50 PM [place] [address] Goldie Maloney MD [address] [place] [phone] documented as of this encounter Procedures Procedure Name Priority Date/Time Associated Diagnosis Comments FILM LIBRARY STORAGE ONLY MR HEAD Routine 02/16/2017 12:00 AM EDT documented in this encounter Results * Film Library- Storage Only MR Head (02/16/2017 12:00 AM EDT) Narrative [facility] - 02/21/2017 9:21 AM EDT This exam is for storage only and is auto-finalizing. Mani Sung MD IMG FILM LIBRARY ORD ERABLES [place], [place] documented in this encounter Visit Diagnoses Not on filedocumented in this encounter Care Teams Auto Brake Technician Relationship Specialty Start Date End Date [place] [address] PCP - General Family Medicine 07/17/16 02/26/17 documented as of this encounter
--- OUTSIDE RECORDS SUMMARY | 2024-05-05 12:21 | XMS_ITS | Encounter Summary ---
Author Organization [facility] Address One [facility] [place] [address] Care Team Providers Care Material Requirements Planning Manager Name Role Phone DanteCrystal SAJAN Primary Care Provider [phone] Encounter Details Date Type Department Care Team (Late st Contact Info) Description 04/02/2005 Orders Only Dermatology at [place] [address] [facility] [place] [address] Selvin Rivera MD [address] [facility] A DERMATOLOGY [place], [place] [id number] Social History Tobacco Use Types Packs/Day Years [...] 12:50 PM EST Hospital [place] [address] Goldie Maloney MD [address] [place] [address] 05/15/2024 1:50 PM [place] [address] Goldie Maloney MD [address] [place] [address] documented as of this encounter Procedures Procedure Name Priority Date/Time Associated Diagnosis Comments SURGICAL PATHOLOGY REPORT Routine 04/02/2005 5:45 PM EST documented in this encounter Results * Surgical Pathology Report (04/02/2005 5:45 PM EST) Surgical Pathology Report [id number] ? Location: The signing pathologist has (i) [...] PM EST Selvin Rivera MD PATHOLOGY[facility] documented in this encounter Visit Diagnoses Not on filedocumented in this encounter Care Teams Material Requirements Planning Manager Relationship Specialty Start Date End Date Crystal Howell APRN [address] [place] [address] PCP - General Family Medicine 02/27/17 documented as of this encounter
--- OUTSIDE RECORDS SUMMARY | 2024-05-05 12:21 | XMS_ITS | Encounter Summary ---
Author Organization [facility] [place] [address] Care Team Providers Care Speed Winder Name Role Phone Dante Crystalananth Lemos APRN Primary Care Provider [phone] Encounter Details Date Type Department Care Team (Late st Contact Info) Description 04/10/2005 [place] [address] Jose Baker MD Social History Tobacco Use Types Packs/Day [...] 12:50 PM EST Hospital [place] [address] Goldie Maloney MD [address] [place] [phone] 05/15/2024 1:50 PM [place] [address] Goldie Maloney MD [address] [place] [phone] documented as of this encounter Procedures Procedure Name Priority Date/Time Associated Diagnosis Comments SURGICAL PATHOLOGY REPORT Routine 04/10/2005 1:11 PM EST documented in this encounter Results * Surgical Pathology Report (04/10/2005 1:11 PM EST) Pathologist [facility] Surgical Pathology Report [id number] ? Location: The signing pathologist has (i) [...] PM EST Jose Baker MD PATHOLOGY/CYTOLOGY [facility] documented in this encounter Visit Diagnoses Not on filedocumented in this encounter Care Teams Speed Winder Relationship Specialty Start Date End Date Crystal Howell, RESEARCH FELLOW [address] [place] [address] PCP - General Family Medicine 02/27/17 documented as of this encounter
--- OUTSIDE RECORDS SUMMARY | 2024-05-05 12:21 | XMS_ITS | Encounter Summary ---
Author Organization [facility] Address [facility] [place] [address] Care Team Providers Care Grinder Lap Name Role Phone Tawanna Kelly APRN Primary Care Provider [phone] Encounter Details Date Type Department Care Team (Late st Contact Info) Description 02/26/2017 Orders [place] [address] Mani Sung MD Social History Tobacco Use Types Packs/Day [...] PM EST Hospital En[place] [address] Goldie Maloney MD [address] [place] [address] 05/15/2024 1:50 PM EST App[place] [address] Goldie Maloney MD [address] [place] [address] documented as of this encounter Visit Diagnoses Not on filedocumented in this encounter Care Teams Grinder Lap Relationship Specialty Start Date End Date Tawanna Kelly APRN [address] [place] [address] PCP - General Family Medicine 07/17/16 02/26/17 documented as of this encounter
--- OUTSIDE RECORDS SUMMARY | 2024-05-05 12:21 | XMS_ITS | Encounter Summary ---
Author Organization [facility] Address [facility] [place] [address] Care Team Providers Care Supervisor Purification Name Role Phone Gayatri Claros APRN Primary Care Provider [phone] Reason for Visit * Auth/Cert Specialty Diagnoses / Procedures Referred By Haseeb messina Referred To Contact Diagnoses 10 yr surv from 04/17/04 Procedures PRO COLONOSCOPY, DIAGNOSTIC COLONOSCOPY, DIAGNOSTIC Referral ID Status Reason Start Date Expiration Date Visits Re quested Visits Authorized [id number] 1 1 Encounter Details Date Type Department Care Team (Latest Contact Info) Description 02/14/2015 12:23 PM EDT - 02/14/2015 3:10 PM EDT Hospital Encounter [place] [address] Kirsten Singleton MD [facility] [place] [address] Discharge Disposition: Home Social History Tobacco Use [...] to be checked. Saturday-Saturday Same Day Endo [phone] [id number] Otherwise contact [phone] and ask to speak to the sales engineer reservations sales agent Follow up care is a crespo part [...] 12:50 PM EST Hospital [place] [address] Goldie Maloney MD [address] [place] [id number] 05/15/2024 1:50 PM [place] [phone] Goldie Maloney MD [facility] [address] [place] [address] documented as of this encounter Procedures Procedure Name Priority Date/Time Associated Diagnosis Comments COLONOSCOPY, DIAGNOSTIC (WRVU 3.26) 02/14/2015 1:41 PM EDT 10 yr surv from 04/17/04 COLONOSCOPY Routine 02/14/2015 12:45 PM EDT documented in this encounter Results * COLONOSCOPY (02/14/2015 12:45 PM EDT) [facility] Signature COLONOSCOPY [facility] Endoscopy Patient Name: Em Dickerson ? Procedure Date: 02/14/2015 12:45 PM ? N: [id number] ? Date of : 1950 ? Age: 64 ? Order #: [id number] ? Procedure: ? Colonoscopy Indications: ? Screening for colorectal malignant ? neoplasm Providers: ? Kirsten Singleton MD, Lisa Lopez RN, ? Lisa Herrmann, Correspondence Representative Referring MD: ?Gayatri Claros MD Medicines: ? [...] PROVATION 02/14/2015 12:4 5 PM EDT Gayatri Juan Ramon Har[facility]OV[facility] documented in [...] Until 02/14/15 at 1552, Intra-Operative (Intra-Procedure), Routine 1344 (Given - Provid er: Lisa Lopez RN)1347 (Given - Provider: Lisa Lopez RN - Comment: continuing sedation)1355 (Given - Provider: Lisa Lopez RN - Comment: pt uncomfortavle) documented in this encounter Care Teams Supervisor Purification Relationship Specialty Start Date End Date Gayatri Claros APRN PCP - General 12/28/14 07/01/16 documented as of this encounter
--- OUTSIDE RECORDS SUMMARY | 2024-05-05 12:21 | XMS_ITS | Encounter Summary ---
Author Organization [facility] Address [facility] [place] [address] Care Team Providers Care Manager Fiber Name Role Phone Tank Lazaro APRN Primary Care Provider [phone] Reason for Referral * Physical Therapy (Routine) - Closed Specialty Diagnoses / Procedures Referred By Haseeb t Referred To Contact Physical Therapy Diagnoses Claudication Stenosis of lateral recess of lumbar spine [facility] [place] [address] [place] [address] [facility] [place] [address] Referral ID Status Reason Start Date Expiration Date V isits Requested Visits Authorized [id number] Closed Evaluate and Treat 09/21/2011 03/19/2012 12 12 Reason for Visit * Reason Comments Bilateral Leg Pain Groin And Leg Pain Encounter Details Date Type Department Care Team (Late st Contact Info) Description 09/21/2011 8:05 AM EDT Office [place] [address] Martinez Mancuso PA Claudication leg paresthesias (Primary Dx); Stenosis of [...] as-needed basis. This dictation was performed using grabHalo dictaction. I have attempted to edit the note, but there may still be errors. documented in this encounter Plan of Treatment Upcoming Encounters Date Type Department Care Team (Late st Contact Info) Description 05/15/2024 12:50 PM [facility] [place] [phone] Goldie Maloney MD [address] [place] [address] 05/15/2024 1:50 [place] [address] Goldie Maloney MD [address] [place] [address] Scheduled Referrals Name Type Priority Associated Diagnoses [...] claudication documented in this encounter Care Teams Manager Fiber Relationship Specialty Start Date End Date Tank Lazaro APRN PCP - General 09/10/11 12/27/14 documented as of this encounter
--- OUTSIDE RECORDS SUMMARY | 2024-05-05 12:21 | XMS_ITS | Encounter Summary ---
Author Organization [facility] Address [facility] [place] [address] Care Team Providers Care Performance Instructor Name Role Phone Tank Vallejo APRN Primary Care Provider [phone] Encounter Details Date Type Department Care Team (Latest Contact Info) Description 09/17/2011 2:56 PM EDT - 09/17/2011 11:59 PM EDT [place] [phone] CLINIC, DR LASHAE Denson, Maco Lemos MD [address] [place], [place] [id number] Discharge Disposition: Home Social History Tobacco Use [...] 61 y.o. : 1950 (home) Female PCP CARBURETOR SPECIALIST TANK VALLEJO APRN None Allergies Allergen Reactions [...] HR. BEFORE SCHEDULED SCAN AND HAVE A SNOWBOARDING INSTRUCTOR AVAILABLE. PT STATED TO PRODUCTION REPRODUCTION MANAGER THAT THE SEDATION WAS EFFECTIVE FOR SCAN: Y__[id number]___[id number] COMMENTS:___Feet first in large bore scanner documented in this encounter Miscellaneous Notes * Miscellaneous - Provider, Scanning - 10/03/2011 10:00 AM EDT documented in this encounter Plan of Treatment Upcoming Encounters Date Type Department Care Team (Late st Contact Info) Description 05/15/2024 12:50 PM EST [place] [address] Goldie Maloney MD [address] [place] [id number] 05/15/2024 1:50 [place] [address] Goldie Maloney MD [address] [place] [phone] documented as of this encounter Procedures Procedure [...] most pronounced at L4-L5 asabove. Tank Vallejo CLASSIFIED ADVERTISING CLERK IMG MRI ORDERABLES documented in this encounter [...] mg documented in this encounter Care Teams Performance Instructor Relationship Specialty Start Date End Date Tank Vallejo APRN PCP - General 09/10/11 12/27/14 documented as of this encounter
--- OUTSIDE RECORDS SUMMARY | 2024-05-05 12:21 | XMS_ITS | Encounter Summary ---
Author Organization [facility] Address [facility] [place] [address] Care Team Providers Care Help Desk Representative Name Role Phone Tawanna Kelly APRN Primary Care Provider [phone] Encounter Details Date Type Department Care Team (Late st Contact Info) Description 08/01/2016 Telephone Dermatology at [facility] [address] [place] [phone] Tal Cha MD Social History Tobacco Use [...] EDT Patient called requesting a referral to [facility] for her MOH's surgery. I told patient that I would ask Josiane to send a referral tomorrow when she returns to the office. Patient gave a fax number for [facility] as [phone]. documented in this encounter Plan of Treatment Upcoming Encounters Date Type Department Care Team (Late st Contact Info) Description 05/15/2024 12:50 PM [facility] Hospital [place] [phone] Goldie Maloney MD [address] [place], [place] [phone] 05/15/2024 1:50 PM [place] [address] Goldie Maloney MD [address] [place], [place] [phone] documented as of this encounter Visit Diagnoses Not on filedocumented in this encounter Care Teams Help Desk Representative Relationship Specialty Start Date End Date Tawanna Kelly APRN [address] [place] [address] [address] [place], [place] [id number] PCP - General Family Medicine 07/17/16 02/26/17 documented as of this encounter
--- OUTSIDE RECORDS SUMMARY | 2024-05-05 12:21 | XMS_ITS | Encounter Summary ---
Author Organization [facility] [place] [address] Care Team Providers Care Customer Orders Clerk Name Role Phone Crystal Howell APRN Primary Care Provider [phone] Reason for Visit * Auth/Cert Specialty Diagnoses [...] Expiration Date Visits Re quested Visits Authorized [id number] 1 1 Encounter Details Date Type Department Care Team (Late st Contact Info) Description 03/11/2017 11:58 AM EST - 03/11/2017 4:26 PM EST [facility] [place] [id number] Mani Sung MD @CRANI, FOR TUMOR, SUPRATENTORIAL, MENINGIOMA (WRVU 37.14) [...] anticoagulant, and non-steroidal anti-inflammatory (NSAIDs) drugs. Common wcdz-odz-bsjfrzj medications which should be avoided include Aspirin, [...] to pass. These medications can be obtained qqpo-yna-cvtmfxy and their use is recommended on an [...] weeks. Please call the Neurosurgery Office at [phone] if you do not receive a scheduled [...] anticoagulant, and non-steroidal anti-inflammatory (NSAIDs) drugs. Common wxuh-bqu-sxujppf medications which should be avoided include Aspirin, [...] to pass. These medications can be obtained ufst-xku-hwoskhz and their use is recommended on an [...] weeks. Please call the Neurosurgery Office at [phone] if you do not receive a scheduled [...] left facility, ambulatory, accompanied by . * TabithaAshish byrne Mayur - 03/13/2017 10:24 AM EST Nutrition [...] the interim. TAHIR Duron * Ashtyn Nikole Mayur, RFID SYSTEMS ENGINEER - 03/13/2017 4:11 AM EST Neurosurgery - [...] Net 365 ml Labs: Recent Labs 03/12/17 003 WBC 12.1* HGB [...] 12:23 PM EST Linda Dickerson arrived to [address] @ 0945 from the ICU. Oriented to room, call cancino within reach, educated on importance of using prior to getting OOB, AVSS, , incision WDL, belongings updated in eDH, bed locked in low position, purposeful hourly rounding, bed/chair alarm on. Report from MARIANNA Prieto. * Shari Gupta - 03/12/2017 7:23 AM EST NEUROSURGERY PROGRESS NOTE Linda Dickerson [id number] ID: [id number] y.o. woman s/p pterional [...] confrontation. No facial asymmetry Tongue midline MOTOR: RUE:09/07 LUE:09/07 RLE: 09/07 LLE: 09/07 No pronator drift LT sensation intact x [...] until good PO. Monitor lytes. PLEASE PAGE [phone] WITH QUESTIONS NEUROLOGIC: brain compression GI: malnutrition [...] DIAGNOSTIC performed by Kirsten Singleton MD at [facility] Prior To Admission Medications: Prescriptions [...] estate. enjoys playing tennis and going to [employer] weekly. Assessment: Pt has been seen by [...] Anticipated Discharge Disposition: home with assist Pager: [phone] MONROE PHAM OT 03/13/2017 Occupational Therapy Rehabilitation [...] Mobility Guidelines: Independent Discharge Recommendations: Home Pager: [phone] Snehal Condon DPT, NCS 03/13/2017 Physical Therapy [...] Handling Outcome: Ongoing (Interventions Implemented as Appropriate) 03/12/1799903/12/17199903/13/17 0000 Restraint Interventions Safety Promotion/Fall Prevention -- [...] documented. * Initial Assessments - Anthony Euceda, RN - 03/12/2017 3:00 PM EST Office [...] that they may express their concerns. This copywriter did assure them that their concerns were [...] Specific Information: none Health/Prescription Coverage: Primary Insurance: [facility] MANAGED MEDICARE Secondary Insurance: N/A Prescription Coverage: as above. Preferred Pharmacy: [facility] Other: n/a Primary Care Provider: Crystal Howell, RFID SYSTEMS ENGINEER [phone] Patient/Caregiver Goals of Treatment: pt is eager [...] of care planning. Anthony Euceda RN Pager: [phone] * Plan of Care - Jordan Lopez [...] required during toileting and ADLs]: RN and TESTER EQUIPMENT Surveillance [continuous indirect monitoring]: Monitor Patient-specific fall [...] Sung MD - 03/11/2017 7:31 PM EST [facility] Operative Note Patient Name: Linda Dickerson : [id number] MR#: [id number] Case Date: 03/11/2017 Surgeon: Surgeon(s) and Role: [...] Time SPECIMEN TO PATHOLOGY (SURGICAL OR DERM) [facility] [phone] YES, Please perform frozen section Meningioma Left [...] her head was placed in a Temple filter tank tender helper head and turned to the right, exposing the left frontaltemporal region. We then registered the [employer] stereotactic navigation system. We markedthe location of the tumor in the left sphenoid wing region, and marked a C-shaped pterional incision to create a skin flap leaving a margin around the tumor. Hair in this region was then clipped. Heroperative site was then marked off with thousand drapes. We then prepped and draped in the usual sterile fashion. We performed a [facility] mandated hard stop timeout confirming the patient's [...] the location of the tumor using the BOND Stealth navigation system. Bur holes were then placed using a back end web developer bit attached to the GeneExcel electric drill posteriorly beyond the most lateral extent of the tumor, just above the root of zygoma, and frontally along the superior temporal line. We then removed any bony remnants using a curette. We then use a [place] 3 instrument to strip the dura from [...] patient was then removed from the Temple filter tank tender helper head. She was allowed to awaken from anesthesia [...] Operative Note Patient Name: Linda Dickerson : [id number] MR#: [id number] Case Date: 03/11/2017 Surgeon: Surgeon(s) and Role: [...] Time SPECIMEN TO PATHOLOGY (SURGICAL OR DERM) [facility] 8915 YES, Please perform frozen section Meningioma Left [...] 12:50 PM EST [place] [address] Goldie Maloney MD [address] [place] [address] 05/15/2024 1:50 PM EST [place] [address] Goldie Maloney MD [address] [place], [place] [address] documented as of this encounter Procedures Procedure Name Priority Date/Time Associated Diagnosis Comments 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 Scanning Provider MEDIA MGR SCAN EXT O RDR/RSLT * (ABNORMAL) Differential, Automated (03/13/2017 5:38 AM EST) Neutrophil % 85.8 % [facility] Neutrophil Absolute 12.95(H) 1.70 - 6.10 x10(3)/mc L [facility] Lymph % 5.6 % [facility] Lymphocytes Abs 0.8(L) 0.9 - 3.2 x10(3)/mc L [facility] Monocyte % 7.2 % [facility] Monocyte Abs 1.1(H) 0.3 - 0.9 x10(3)/mc L [facility] Eos % 0.0 % [facility] Eosinophils Abs 0.0 0.0 - 0.4 x10(3)/mc L [facility] Basophil % 0.1 % [facility] Baso Absolute 0.0 0.0 - 0.1 x10(3)/mc L [facility] Immature Gran % 1.30 % [facility] Comment: Immature granulocytes(IG's)percentage and absolute count will include metamyelocytes, myelocytes, and promyelocytes. Blood smears from CBCs yielding IG's will be scanned manually for concordance. If this scan disagrees with the automated IG or if promyelocytes are noted, a manual differential will be performed. Immature Gran Absolute 0.19(H) 0.00 - 0.04 x10(3)/ L [facility] Blood specimen (specimen) 03/13/2017 5:38 AM EST 03/13/2017 5:54 AM EST Narrative Resulting Agency Comment Spec In Lab Angel Morse APRN HEMATOLOGY ORDERABLE S [facility] [place] [address] * (ABNORMAL) Hemogram (03/13/2017 5:38 AM EST) White Blood Cell 15.1(H) 4.0 - 9.5 x10(3)/ L [facility] Red Blood Cell 3.89(L) 4.00 - 5.21 x10(6)/[facility] Hemoglobin 11.5(L) 11.7 - 15.5 gm/dL [facility] Hematocrit 32.9(L) 35.7 - 45.8 % [facility] Mean Cell Volume 84.6 82.6 - 94.4 fL [facility] Mean Cell Hemoglobin 29.6 27.1 - 32.0 pg [facility] Mean Cell Hemoglobin Concentration 35.0 31.7 - 35.0 gm/dL [facility] Platelet 222 145 - 357 x10(3)/ L [facility] RDW Standard Deviation 39.8 37.0 - 46.0 fL [facility] RDW coefficient of variation 13.1 11.5 - 14.1 % [facility] Mean Platelet Volume 9.6 7.6 - 12.9 fL [facility] NRBC% auto 0.0 % [facility] NRBC Absolute 0.000 0.000 - 0.000 x10(3)/ L [facility] Blood specimen (specimen) 03/13/2017 5:38 AM EST 03/13/2017 5:54 AM EST Narrative Resulting Agency Comment Spec In Lab Angelrubin Morse SAJAN HEMATOLOGY ORDERABLE S [facility] [place] [address] * (ABNORMAL) Basic Metabolic Panel (non-fasting) (03/13/2017 5:38 AM EST) Glucose 138 65 - 199 mg/dL [facility] Comment:Diabetes: >=200 mg/d L plus symptoms Blood Urea Nitrogen 9 8 - 18 mg/dL [facility] Creatinine 0.59(L) 0.70 - 1.20 mg/dL [facility] Sodium 139 135 - 145 mmol/L [facility] Potassium 4.3 3.5 - 5.0 mmol/L [facility] Comment: result rechecked-pmh Please note: ??Patients with WBC >100,000 may have falsely elevated Potassium levels. ??For accurate Potassium quantification in these patients send serum separator tube (gold top) for subsequent determinations. ??Contact the Clinical Chemistry Laboratory if there are any questions. Chloride 103 98 - 107 mmol/L [facility] Carbon Dioxide 26 22 - 31 mmol/L [facility] Anion Gap 10 5 - 15 mmol/L [facility] Calcium 9.3 8.5 - 10.5 mg/dL [facility] Comment:result rechecked-pmh Est Glomerular Filtration Rate >60 >=60 [facility] Comment: The reported eGFR should be multiplied by 1.2 for patients. The MDRD is not an appropriate measure of renal function for patients with body mass extremes or in patients with acute kidney failure. http://Sonogenix.Youxinpai/DHnkdep http://XY Mobile/DHMCnkf Blood specimen (specimen) 03/13/2017 5:38 AM EST 03/13/2017 5:54 AM EST Narrative Resulting Agency Comment Spec In Lab Angel oMrse APRN CHEMISTRY ORDERABLES [facility] [place] [address] * MRI Brain wwo Contrast (Generic) (03/12/2017 [...] at 03/12/2017 5:30 PM Mani Sung MD [facility] [place] ORDERABLES * Phosphorus (03/12/2017 12:35 AM EST) Phosphorus 3.5 2.5 - 4.5 mg/dL [facility] Blood specimen (specimen) Venous Draw / Unknown 03/12/2017 12:35 AM EST 03/12/2017 12:42 AM EST Narrative Resulting Agency Comment Spec In Lab Mani Sung MD CHEMISTRY ORDERABLES [facility] [place] [address] * Magnesium (03/12/2017 12:35 AM EST) Pathologist [facility] Magnesium 0.70 0.69 - 1.07 mmol/L [facility] Blood specimen (specimen) Venous Draw / Unknown 03/12/2017 12:35 AM EST 03/12/2017 12:42 AM EST Narrative Resulting Agency Comment Spec In Lab Mani Sung MD CHEMISTRY ORDERABLES [facility] [place] [address] * (ABNORMAL) Differential, Automated (03/12/2017 12:35 AM EST) Pathologist [facility] Neutrophil % 89.5 % [facility] Neutrophil Absolute 10.80(H) 1.70 - 6.10 x10(3)/mc L [facility] Lymph % 6.7 % [facility] Lymphocytes Abs 0.8(L) 0.9 - 3.2 x10(3)/mc L [facility] Monocyte % 3.2 % [facility] Monocyte Abs 0.4 0.3 - 0.9 x10(3)/mc L [facility] Eos % 0.0 % [facility] Eosinophils Abs 0.0 0.0 - 0.4 x10(3)/mc L [facility] Basophil % 0.2 % [facility] Baso Absolute 0.0 0.0 - 0.1 x10(3)/mc L [facility] Immature Gran % 0.40 % [facility] Comment: Immature granulocytes(IG's)percentage and absolute count will include metamyelocytes, myelocytes, and promyelocytes. Blood smears from CBCs yielding IG's will be scanned manually for concordance. If this scan disagrees with the automated IG or if promyelocytes are noted, a manual differential will be performed. Immature Gran Absolute 0.05(H) 0.00 - 0.04 x10(3)/mc L [facility] Blood specimen (specimen) 03/12/2017 12:35 AM EST 03/12/2017 12:41 AM EST Narrative Resulting Agency Comment Spec In Lab Mani Sung MD HEMATOLOGY ORDERABLE S [facility] [place] [address] * (ABNORMAL) Hemogram (03/12/2017 12:35 AM EST) White Blood Cell 12.1(H) 4.0 - 9.5 x10(3)/[facility] Red Blood Cell 3.97(L) 4.00 - 5.21 x10(6)/[facility] Hemoglobin 11.4(L) 11.7 - 15.5 gm/dL [facility] Hematocrit 33.8(L) 35.7 - 45.8 % [facility] Mean Cell Volume 85.1 82.6 - 94.4 fL [facility] Mean Cell Hemoglobin 28.7 27.1 - 32.0 pg [facility] Mean Cell Hemoglobin Concentration 33.7 31.7 - 35.0 gm/dL [facility] Platelet 216 145 - 357 x10(3)/[facility] RDW Standard Deviation 39.7 37.0 - 46.0 [facility] RDW coefficient of variation 12.7 11.5 - 14.1 % [facility] Mean Platelet Volume 9.2 7.6 - 12.9 fL [facility] NRBC% auto 0.0 % [facility] NRBC Absolute 0.000 0.000 - 0.000 x10(3)/[facility] Blood specimen (specimen) 03/12/2017 12:35 AM EST 03/12/2017 12:41 AM EST Narrative Resulting Agency Comment Spec In Lab Mani Sung MD HEMATOLOGY ORDERABLE S Performing Organization Address City/[facility]/ZIP Co de Phone Number [facility] [place] [address] * (ABNORMAL) Basic Metabolic Panel (non-fasting) (03/12/2017 12:35 AM EST) Glucose 163 65 - 199 mg/dL [facility] Comment:Diabetes: >=200 mg/d L plus symptoms Blood Urea Nitrogen 14 8 - 18 mg/dL [facility] Creatinine 0.59(L) 0.70 - 1.20 mg/dL [facility] Sodium 142 135 - 145 mmol/L [facility] Potassium 3.1(L) 3.5 - 5.0 mmol/L [facility] Comment: result rechecked-douglas Please note: ??Patients with WBC >100,000 may have falsely elevated Potassium levels. ??For accurate Potassium quantification in these patients send serum separator tube (gold top) for subsequent determinations. ??Contact the Clinical Chemistry Laboratory if there are any questions. Chloride 107 98 - 107 mmol/L [facility] Carbon Dioxide 20(L) 22 - 31 mmol/L [facility] Anion Gap 15 5 - 15 mmol/L [facility] Calcium 8.1(L) 8.5 - 10.5 mg/dL [facility] Est Glomerular Filtration Rate >60 >=60 [facility] Comment: The reported eGFR should be multiplied by 1.2 for patients. The MDRD is not an appropriate measure of renal function for patients with body mass extremes or in patients with acute kidney failure. http://Sonogenix.Youxinpai/DHnkdep http://[employer]ix.Youxinpai/DHMCnkf Blood specimen (specimen) 03/12/2017 12:35 AM EST 03/12/2017 12:41 AM EST Narrative Resulting Agency Comment Spec In Lab Angel Morse [place] [address] * Specimen to Pathology (surgical or derm) (03/11/2017 4:52 PM EST) AP Specimen 03/11/2017 4:52 PM EST 03/11/2017 4:52 PM EST Narrative [facility] - 03/11/2017 4:52 PM EST Specimen requisition ordered. ??Separate Pathology report to follow Mani Sung MD PATHOLOGY/CYTOLOGY O PARTHA Performing Organization Address [facility] [place] [address] * Specimen to Pathology (surgical or derm) (03/11/2017 3:22 PM EST) AP Specimen 03/11/2017 3:22 PM EST 03/11/2017 3:22 PM EST Narrative [facility] - 03/11/2017 3:22 PM EST Specimen requisition ordered. ??Separate Pathology report to follow Mani Sung MD PATHOLOGY/CYTOLOGY O PARTHA Performing Organization Address [facility] [place] [address] * Surgical Pathology Report (03/11/2017 3:21 PM EST) Final Diagnosis [id number] ? Location: [facility]; [facility]; A The signing pathologist has (i) examined the relevant preparation(s) for the specimen(s) and (ii) rendered or confirmed the diagnosis(es). . ?Surgical Pathology DIAGNOSIS SECRETORY MENINGIOMA, grade I Electronically signed by: ??Helen MODI, Jorge Luis Lomeli Verified: ??03/18/2017 ?Pathologist Performed at: ??-[facility] Dept. of Pathology, [place], [place] DISCUSSION The lesion excised from the [...] Block ??Antibody Result (Positive/Negative) B1 ??GFAP No REMEDIATION PROJECT ENGINEER parenchyma is present. B1 ??KI67 Nuclear positivity [...] segment of vazquez-pink fibrous tissue. Sections/Processing: (1) technical sales representative section of dark brown-black friable tissue; (2) technical sales representative section of vazquez-pink fibrous tissue (T2) ??sm ?Frozen Section FROZEN SECTION DIAGNOSIS A - Left sphenoid wing, smear and frozen section: ??Meningioma 03/11/17 15:52 Electronically signed by: ??Malika MODI, Jessy Mercado Verified: ??03/11/2017 ?Pathologist Performed at: ??-[facility] Dept. of Pathology, [place], [place] This intraoperative consultation should be interpreted as a preliminary diagnosis pending review of the entire specimen and special studies, if any. 03/18/2017 2:53 PM EST [facility] BRAIN STRUCTURE / Unknown 03/11/2017 3:21 PM EST 03/11/2017 3:21 PM EST BRAIN STRUCTURE / Unknown 03/11/2017 3:21 PM EST 03/11/2017 3:21 PM EST Mani Sung MD PATHOLOGY/CYTOLOGY O RDERABLES [facility] [place] [address] * CT Head wo Contrast (Generic) (03/11/2017 [...] 1953 (Given - Provider: Jordan Lopez RN) 0027 (Given - Provider: Jordan Lopez RN)0609 (Given - Provider: Jordan Lopez RN)1154 (See Alternative - Provider: Faustina Sewell RN)1800 (See Alternative - Provider: Faustina Sewell RN) 0013 (See Alternative - Provider: Denis Stout RN)0551 (See Alternative - Provider: Denis Stout RN)1151 (See Alternative - Provider: April Ignacio RN) dexamethasone (DECADRON) tablet 4 mg(Linked Group [...] Denis Stout RN)0551 (Given - Provider: Denis Stout, MARIANNA)1151 (Given - Provider: April Ignacio, MARIANNA) famotidine (PEPCID) injection 20 mg(Linked Group 2) 20 mg, Intravenous, 2 TIMES DAILY, First dose on Sat03/11/17 at 2100, Until Discontinued, Routine 2220 (Given - Provider: Roxann Brice RN) 850 (See Alternative - Provider: Conner Daniel RN)2004 [...] RN)2234 (Stopped - Provider: Roxann Brice RN) 850 (See Alternative - Provider: Conner Daniel RN)2004 (See Alternative - Provider: Denis Stout RN) 923 (See Alternative - Provider: April Ignacio, MARIANNA) levETIRAcetam (KEPPRA) tablet 500 mg(Linked Group 3) 500 mg, Oral, 2 TIMES DAILY, First dose on Sat03/11/17 at 2100, Until Discontinued, Routine 2220 (See Alternative - Provider: Roxann Brice RN)2234 (See Alternative - Provider: Roxann Brice RN) 850 (Given - Provider: Conner Daniel RN)2004 (Given - Provider: Denis Stout RN) 09 (Given - Provider: April Ignacio, MARIANNA) magnesium [...] Stout RN) 09 (Given - Provider: April Ignacio, MARIANNA) sodium chloride 0.9 % flush 5 mL (CANCELED) 5 mL, Intravenous, 2 TIMES DAILY, First dose on Sat03/11/17 at 2100, Until Discontinued, Recovery (Recovery-Hospital Unit), Routine 2100 (Given - Provider: Roxann Brice, MARIANNA) vancomycin 1 g in 0.9 % sodium [...] Lopez RN)0850 (See Alternative - Provider: Conner Daniel, RN)1515 (See Alternative - Provider: Kristen Emmanuel, RN)2120 (See Alternative - Provider: Denis Stout, MARIANNA) 0405 (See Alternative - Provider: Denis Stout RN)0927 (See Alternative - Provider: April Ignacio, RN) acetaminophen (TYLENOL) tablet 1,000 mg(Linked Group 4) 1,000 mg, Oral, EVERY 6 HOURS PRN, Starting on Sat03/11/17 at 2114, Until Sat03/13/17 at 1453, Pain, Maximum dose of acetaminophen is 4000 mg from all sources in 24 hours., Routine 0209 (Given - Provider: Jordan Lopez RN)0850 (Given - Provider: Conner Daniel RN)1515 (Given - Provider: Kristen Emmanuel, MARIANNA)212 (Given - Provider: Denis Stout, MARIANNA) 040 (Given - Provider: Denis Stout RN)09 (Given - Provider: April Ignacio, MARIANNA) bacitracin injection (CANCELED) ONCE PRN, Starting on Sat03/11/17 at 1735, Until Sat03/13/17 at 1453, Intra-Operative (Intra-Procedure), Routine 1735 (Given - Provider: Mani Sung MD - Comment: 32832 units in a liter LR after dura [...] (7-10), Routine 1913 (Given - Provider: Jordan Lopez, MARIANNA) 002 (See Alternative - Provider: Jordan Lopez RN)161 (See Alternative - Provider: Faustina Sewell RN)2010 (See Alternative - Provider: Denis Stout, MARIANNA) 12 (See Alternative - Provider: Denis Stout, MARIANNA) oxyCODONE (ROXICODONE) immediate release tablet 5 mg(Linked Group 6) 5 mg, Oral, EVERY 4 HOURS PRN, Starting on Sat03/11/17 at 1900, Until Sat03/13/17 at 1453, Pain, mild to moderate pain (1-6), May give an additional 5 mg in 30 minutes once if pain not relieved. Mild to moderate pain (1-6), Routine 191 (See Alternative - Provider: Jordan Lopez RN) 002 (Given - Provider: Jordan Lopez RN)161 (Given - Provider: Faustina Sewell RN)2010 (Given - Provider: Denis Stout, MARIANNA) 12 (Given - Provider: Denis Stout, RN) polyethylene glycol (MIRALAX) packet 17 g [...] Routine documented in this encounter Care Teams Customer Orders Clerk Relationship Specialty Start Date End Date Crystal Howell APRN [address] [place] [address] PCP - General Family Medicine 02/27/17 documented as of this encounter
--- OUTSIDE RECORDS SUMMARY | 2024-05-05 12:21 | XMS_ITS | Encounter Summary ---
Author Organization [facility] Address [facility] [place] [address] Care Team Providers Care Legal Researcher Name Role Phone Tawanna Kelly APRN Primary Care Provider [phone] Encounter Details Date Type Department Care Team (Latest Contact Info) Description 01/15/2017 - 01/15/2017 11:59 PM EDT Hospital Encounter Radiology Library at [facility] [place] [address] Mani Sung MD Pain Discharge Disposition: Home Social History Tobacco [...] 12:50 PM EST [place] [address] Goldie Maloney MD [address] [place], [place] [address] 05/15/2024 1:50 PM [place] [address] Goldie Maloney MD [address] [place] [phone] documented as of this encounter Procedures Procedure Name Priority Date/Time Associated Diagnosis Comments FILM LIBRARY STORAGE ONLY CT SPINE Routine 01/15/2017 12:00 AM EDT Pain documented in this encounter Results * Film Library- Storage Only CT Spine (01/15/2017 12:00 AM EDT) Narrative [facility] - 02/01/2017 10:05 AM EDT This exam is for storage only and is auto-finalizing. Mani Sung MD IMG FILM LIBRARY ORD ERABLES [place], [place] documented in this encounter Visit Diagnoses Diagnosis Pain Generalized pain documented in this encounter Care Teams Legal Researcher Relationship Specialty Start Date End Date Tawanna [place] [address] PCP - General Family Medicine 07/17/16 02/26/17 documented as of this encounter
--- OUTSIDE RECORDS SUMMARY | 2024-05-05 12:21 | XMS_ITS | Encounter Summary ---
Author Organization [facility] Address [facility] [place] [address] Care Team Providers Care Teaching Associate Name Role Phone Tawanna Kelly APRN Primary Care Provider [phone] Reason for Visit * Reason Comments Skin Check * Consultation (Routine) - Specialty Diagnoses / Procedures Referred By Contiain t Referred To Contact Dermatology Diagnoses Melanocytic nevi, unspecified Facial mole with change Tawanna Kelly APRN [address] [place] [address] [facility] Dermatology [address] [place] [address] Referral ID Status Reason Start Date Expiration Date V isits Requested Visits Authorized [id number] 06/15/2016 06/15/2017 6 6 Encounter Details Date Type Department Care Team (Late st Contact Info) Description 07/17/2016 9:15 AM EDT Office Visit Dermatology at [facility] [address] [place] [address] Tal Cha MD Neoplasm of uncertain behavior of skin; Skin [...] or concerns, please call the office at [phone]. If it is after 5PM, or a holiday or weekend, please call [phone] and ask for the Production Estimator on-call. documented in this encounter Progress Notes [...] PATIENT CLINIC NOTE Date of service: 07/17/2016 Em Dickerson : 1950 Provider: Tal Cha MD Chief Complaint Patient presents with ??? Skin Check HPI Em Dickerson is a 66 y.o. year old [...] in the presence of Dr. Cha: Sherley Guevara, EQUINE MANAGER I performed the above scribed service and agree with the accuracy of the documentation in this encounter. Tal Cha MD Section of Dermatology [facility] documented in this encounter Plan of Treatment Upcoming Encounters Date Type Department Care Team (Late st Contact Info) Description 05/15/2024 12:50 PM EST Hospital Encounter MRI at [place] [id number] Goldie Maloney MD [address] [place], [place] [id number] 05/15/2024 1:50 PM EST [place] [phone] Goldie Maloney MD [address] [place], [place] [id number] documented as of this encounter Procedures Procedure Name Priority Date/Time Associated Diagnosis Comments SPECIMEN TO PATHOLOGY (NON-OR) Routine 07/17/2016 10:14 AM EDT Neoplasm of uncertain behavior of skin SURGICAL PATHOLOGY REPORT Routine 07/17/2016 10:14 AM EDT documented in this encounter Results * Surgical Pathology Report (07/17/2016 10:14 AM EDT) Final Diagnosis [id number] ?Location: [facility] The signing pathologist has (i) [...] Bisected. (T1) ??ejr 07/18/2016 1:55 PM EDT [facility] SPECIMEN FROM SKIN / Unknown 07/17/2016 10:14 AM EDT 07/17/2016 10:14 AM EDT Tal Cha MD PATHOLOGY/CYTOLOGY ORDERABLES [facility] [place] [address] * Specimen to Pathology (NON-OR) (07/17/2016 10:14 AM EDT) AP Specimen 07/17/2016 10:1 4 AM EDT 07/17/2016 1:05 PM EDT Narrative [facility] - 07/17/2016 1:05 PM EDT Specimen requisition ordered. ??Separate Pathology report to follow Resulting Agency Comment Spec In Lab Tal Cha MD PATHOLOGY/CYTOLOGY ORDERABLES [facility] [place] [address] documented in this encounter Visit Diagnoses Diagnosis Neoplasm of uncertain behavior of skin Skin exam, screening for cancer Screening for malignant neoplasm of the skin Multiple benign nevi Benign neoplasm of skin, site unspecified Caf?? au lait spot Other dyschromia documented in this encounter Care Teams Teaching Associate Relationship Specialty Start Date End Date Tawanna Kelly APRN [place] [place] [address] PCP - General Family Medicine 07/17/16 02/26/17 documented as of this encounter
[2024-05-05 15:38] LABS: FREE T4 1.12 ng/dL (0.76-1.46); TSH 3.01 uIU/mL (0.36-3.74)
== END 2024-05-05 12:17 | disposition home or self-care (01) ==
LOC: NCHCN 12:16
PROVIDERS: PCP Nurse Practitioner Family; Visit Provider Family Medicine
DX: E78.5 Hyperlipidemia, unspecified (principal)
CPT/HCPCS: 84439; 84443

== ENCOUNTER 2024-06-15 17:36 | Emergency (ER) | payer MEDICARE, SELFPAY ==
--- NOTE | 2024-06-15 17:30 | RT.EKG_ITS ---
APPROVED REPORT Exam: Resting ECG Reason for Exam: chest tightness Patient Location: E HR:69 bpm ECG Measurements Heart Rate 69 AXIS CA 169 P 62 QRSd 104 QRS -59 QT 396 T 104 QTc 426 Conclusion Sinus rhythm...normal P axis, V-rate 60- 99 LAD, consider left anterior fascicular block...axis(240,-40), S>R II III aVF LVH with secondary repolarization abnormality...multi-LVH criteria, abnrm ST-T No ST segment or T wave abnormalitites to suggest occlusive [place]
[2024-06-15 17:39] VITALS: BP 180/94; PULSE 70; RESP 18; TEMP 36.4; O2SAT 96
[2024-06-15 18:13] VITALS: RESP 18
[2024-06-15] MEDS: Aspirin 81 MG CHEW 324 MG CH (18:20)
--- OUTSIDE RECORDS SUMMARY | 2024-06-15 18:26 | XMS_ITS | Encounter Summary ---
Author Organization [facility] Address [address] [place] [address] Care Team Providers Care Sales Exec Name Role Phone Crystal Howell APRN Primary Care Provider [phone] Encounter Details Date Type Department Care Team (Late st Contact Info) Description 11/29/2022 Lab Requisition [facility] Pathology & Laboratory Medicine - [facility] [address] [place] [address] Outr Resulting Lab, Provider Social History Tobacco [...] Lyme Ab Negative Negative 11/30/2022 11:45 EDT [facility] Blood VENOUS BLOOD / Unknown 11/28/2022 15:00 EDT 11/29/2022 18:19 EDT us Provider Outr Resulting Lab IMMUNOLOGY AND SEROL OGY ORDERABLES Final Result [facility] [address] [place] [address] documented in this encounter Visit Diagnoses Not on filedocumented in this encounter Care Teams Sales Exec Relationship Specialty Start Date End Date Crystal Howell APRN [address] [place] [address] PCP - General 07/18/17 documented as of this encounter
--- OUTSIDE RECORDS SUMMARY | 2024-06-15 18:26 | XMS_ITS | Encounter Summary ---
Author Organization [facility] Address [address] [place] [address] Care Team Providers Care Hull Drafter Name Role Phone Crystal Howell APRN Primary Care Provider [phone] Reason for Visit * Reason Onset Date Comments Appointment Related 05/22/2021 called to seble hobson Encounter Details Date Type Department Care Team (Late st Contact Info) Description 05/22/2021 Telephone [facility] Ophthalmology - [facility] [address] [place], [place] [address] Kristen Faria MD [address] [facility], [address] [place] [address] Appointment Related (called to cancel) [...] on filedocumented in this encounter Care Teams Hull Drafter Relationship Specialty Start Date End Date Crystal Howell APRN [address] [place] [address] PCP - General 07/18/17 documented as of this encounter
--- OUTSIDE RECORDS SUMMARY | 2024-06-15 18:26 | XMS_ITS | Encounter Summary ---
Author Organization [facility] Address [address] [place] [address] Care Team Providers Care Technical Trainer Name Role Phone Mariam Hernandez MD Primary Care Provider [phone] Reason for Visit * Reason Onset Date Comments Biopsy Results 04/25/2017 Encounter Details Date Type Department Care Team (Late st Contact Info) Description 04/25/2017 Telephone [facility] Dermatology 3rd Floor [facility] [address] [place], [place] [address] Mervat Melo MD PhD [address] [place] [address] [place] [phone] Biopsy Results Social History Tobacco Use Types [...] filedocumented in this encounter Care Teams Technical Trainer Relationship Specialty Start Date End Date Mariam Hernandez MD [address] [place] [address] PCP - General 01/04/17 07/17/17 documented as of this encounter
--- OUTSIDE RECORDS SUMMARY | 2024-06-15 18:26 | XMS_ITS | Clinical Summary ---
Author Organization [facility] Address [address] [place] [address] Care Team Providers Care Hosiery Looper Name Role Phone Crystal Howell APRN Primary Care Provider [phone] Allergies Active Allergy Reactions Criticality Noted Date [...] Problems Problem Noted Date Diagnosed Date Meningioma ([facility]) 01/15/2017 Surgical History Surgery Date Site/Laterality [...] [employer] MEDICARE BCBS MEDICARE Care Teams Hosiery Looper Relationship Specialty Start Date End Date Crystal Howell APRN [address] [place] [address] [facility] - General 07/18/17
--- OUTSIDE RECORDS SUMMARY | 2024-06-15 18:26 | XMS_ITS | Referral Summary ---
Author Organization [facility] Address [address] [place] [address] Care Team Providers Care Lithographic Printing Machinist Name Role Phone Crystal Howell APRN Primary Care Provider [phone] Allergies Active Allergy Reactions Criticality Noted Date [...] Problems Problem Noted Date Diagnosed Date Meningioma ([facility]-CMS) 01/15/2017 Social History Tobacco Use Types Packs/Day [...] Plan of Treatment Not on file Insurance [facility] MEDICARE [facility] MEDICARE Care Teams Lithographic Printing Machinist Relationship Specialty Start Date End Date Crystal Howell APRN [address] [place] [address] [facility] - General 07/18/17
--- OUTSIDE RECORDS SUMMARY | 2024-06-15 18:26 | XMS_ITS | Encounter Summary ---
Author Organization [facility] Address [address] [place] [address] Care Team Providers Care Spectrograph Operator Name Role Phone Crystal Howell APRN Primary Care Provider [phone] Encounter Details Date Type Department Care Team (Late st Contact Info) Description 05/12/2021 Transcribe Orders [facility] Cardiology [address] [place] [address] Crystal Howell APRN [address] [address] Social History Tobacco Use Types Packs/Day Years [...] on filedocumented in this encounter Care Teams Spectrograph Operator Relationship Specialty Start Date End Date Crystal Howell APRN [address] [place] [address] PCP - General 07/18/17 documented as of this encounter
--- OUTSIDE RECORDS SUMMARY | 2024-06-15 18:26 | XMS_ITS | Encounter Summary ---
Author Organization [facility] Address [address] [place] [address] Care Team Providers Care Living Supervisor Name Role Phone Mariam Hernandez MD Primary Care Provider [phone] Encounter Details Date Type Department Care Team (Late st Contact Info) Description 04/19/2017 Results Only [facility] Dermatology 3rd Floor [facility] [address] [place], [place] [id number] Mervat Melo MD PhD [address] [place] [phone] Social History Tobacco Use Types Packs/Day Years [...] ? HANNAH SINHA ? Accession #: ? [id number] ? : ? 1950 (Age: 67) ??F [...] moderate amount of cytoplasm. ??The melanocytes show fire protection engineer maturation. SOX-10 ALK PHOS (EP268, EpitLIKECHARITY) does not show evidence of well developed [...] performance characteristics have been determined by [facility]. ??The positive and negative controls worked [...] (ASCP) 04/22/2017 9:41 AM End of Report [facility] 04/19/2017 7:31 EST 04/19/2017 7:31 EST us Mervat Melo MD PhD PATHOLOGY ORDERABLES Cindy moore Result [facility] [address] [place] [address] documented in this encounter Visit Diagnoses Not on filedocumented in this encounter Care Teams Living Supervisor Relationship Specialty Start Date End Date Mariam Hernandez MD [address] [place] [address] PCP - General 01/04/17 07/17/17 documented as of this encounter
--- OUTSIDE RECORDS SUMMARY | 2024-06-15 18:26 | XMS_ITS | Encounter Summary ---
Author Organization [facility] Address [address] [place] [address] Care Team Providers Care Registered Land Surveyor Name Role Phone Crystal Howell APRN Primary Care Provider [phone] Encounter Details Date Type Department Care Team (Late st Contact Info) Description 02/18/2020 Results Only Imaging [facility] [address] [place] [address] Natalie Lennon, MILL CRANE OPERATOR [address] [place] [address] Social History Tobacco Use Types [...] 12:0 0 EDT Narrative 02/18/2020 14:44 EDT *[facility]* *[facility]* [address] [place] [address] Stress Electrocardiography Alex protocol Date of study: [...] med stress test many years ago at [facility] in [place]. Does not remember why the test was [...] peak heart rate and blood pressure was 86745sq Hg/min. ??The patient experienced no chest pain [...] procedure. This study was interpreted by [facility]. ??Study status: ??Routine. ??Consent: ??The [...] Note Blanco Byrnes MD - 02/18/2020 *[facility]* *[facility]* [address] [place] [id number] Stress Electrocardiography Alex protocol Date of study: [...] med stress test many years ago at [facility] in [place]. Does not remember why the test was [...] peak heart rate and blood pressure was 68594iq Hg/min. The patient experienced no chest pain [...] procedure. This study was interpreted by [facility]. Study status: Routine. Consent: The [...] Blanco Byrnes 02/18/2020 14:44 us Natalie Lennon MILL CRANE OPERATOR CARDIAC NM ORDERABLES Final Result documented in this encounter Visit Diagnoses Not on filedocumented in this encounter Care Teams Registered Land Surveyor Relationship Specialty Start Date End Date Crystal Howell APRN [address] [place] [address] PCP - General 07/18/17 documented as of this encounter
--- OUTSIDE RECORDS SUMMARY | 2024-06-15 18:26 | XMS_ITS | Encounter Summary ---
Author Organization [facility] Address [address] [place] [address] Care Team Providers Care Mattress Stripper Name Role Phone Crystal Howell APRN Primary Care Provider [phone] Reason for Visit * Reason Comments Follow-up h/o MMIS Skin Exam FBSE Encounter Details Date Type Department Care Team (Late st Contact Info) Description 07/19/2017 15:20 EDT Office Visit [facility] Dermatology 3rd Floor [facility] [address] [place] [address] Mervat Melo MD PhD [address] [place] [address] [place] [phone] Sun-damaged skin (Primary Dx); History of melanoma; [...] least spf 30 For the environmentally friendly: Soqokv2Tip For dry skin: Moses MODI UV Elements For ultra-sensitive skin: Vanicream free and clear sunscreen For Kids or ultrasensitive skin: Titanium dioxide and zinc oxide--Vanicream free and clear sunscreen, [place] unscented or Blue Lizard Other: ColoreScience Sunforgettable powder, Solbar or BullFrog gel, Men Expert Hydra Energetic After Shave [place], [place] bar soap or body wash. For sprays: Do not inhale or get near an open flame. Even more important are hats and sun protective clothing with UPF. Sunprecautions, Land???s [place], J. Crew, Under [place] , O-Richi, ABG Accessories, Coolibar Sun umbrellas Other: Vitamins/supplements: -Heliocare -- Pills which provide some level of sunscreen -Niacinamide 500mg PO BID (aka nicotinamide) Izzy: UVUniken Systems - UV Index Check [email or web address].org and consumer [...] I meningioma which she had excised at [facility]. She is doing very well [...] should problems arise. Mervat Melo MD Dermatology [facility] documented in this encounter Plan of Treatment Not on file documented as of this encounter Visit Diagnoses Diagnosis Sun-damaged skin- Primary Other dermatitis due to solar radiation History of melanoma Personal history of malignant melanoma of skin Scar Scar condition and fibrosis of skin Multiple benign nevi Benign neoplasm of skin, site unspecified documented in this encounter Care Teams Mattress Stripper Relationship Specialty Start Date End Date Crystal Howell APRN [address] [place] [address] PCP - General 07/18/17 documented as of this encounter
--- OUTSIDE RECORDS SUMMARY | 2024-06-15 18:27 | XMS_ITS | Encounter Summary ---
Author Organization [facility] Address [address] [place] [address] Care Team Providers Care Belt Dresser Name Role Phone Mariam Hernandez MD Primary Care Provider [phone] Reason for Referral * Radiology Services (48 Hrs (Urgent)) - Closed Specialty Diagnoses / Procedures Referred By Contac t Referred To Contact Diagnoses Neck mass Procedures CT NECK (SOFT TISSUE) W CONTRAST Mervat Melo MD PhD Phone: tel: fax: Referral ID Status Reason Start Date Expiration Date Visits Re quested Visits Authorized [id number] Closed 01/11/2017 1 1 Encounter Details Date Type Department Care Team (Late st Contact Info) Description 01/11/2017 Orders Only [facility] Dermatology 3rd Floor [facility] [address] [place], [place] [id number] Mervat Melo MD PhD [address] [place] [phone] Neck mass (Primary Dx) Social History Tobacco [...] above interpretation and agree with the findings. us Mervat Melo MD PhD IMG CT ORDERABLES Final R esult documented in this encounter Visit Diagnoses Diagnosis Neck mass- Primary Swelling, mass, or lump in head and neck documented in this encounter Care Teams Belt Dresser Relationship Specialty Start Date End Date Mariam Hernandez MD [address] [place] [phone] PCP - General 01/04/17 07/17/17 documented as of this encounter
--- OUTSIDE RECORDS SUMMARY | 2024-06-15 18:27 | XMS_ITS | Encounter Summary ---
Author Organization [facility] Address [address] [place] [address] Care Team Providers Care Tube Making Machine Operator Name Role Phone Mariam Hernandez MD Primary Care Provider [phone] Reason for Visit * Reason Onset Date Comments Discuss Test Results 02/18/2017 Encounter Details Date Type Department Care Team (Late st Contact Info) Description 02/18/2017 Telephone [facility] [address] [place], [place] [id number] Alex Aldridge MD [address] [place] [address], [address] [place] [address] Discuss Test Results Social History [...] Telephone Encounter - Krystin Owens - 02/19/2017 7868 EDT Returned call to Em to discuss [...] is scheduled to see 2 physicians in [place] this week for a second opinion and [...] needed to drive all the way to [place] to get results. Again, reiterated that results are not given over the phone and that is why the clinic appointment was scheduled as well as she needs to physically be present in the office to sign consent for surgery. Well I have5 copies of that MRI that I am taking to [place] and might not even have surgery with you. Acknowledged that patient can proceed however she wishes but she would need a clinic appointment to discuss results and surgery. Patient terminated call. documented in this encounter Plan of Treatment Not on file documented as of this encounter Visit Diagnoses Not on filedocumented in this encounter Care Teams Tube Making Machine Operator Relationship Specialty Start Date End Date Mariam Hernandez MD [address] [place] [address] PCP - General 01/04/17 07/17/17 documented as of this encounter
--- OUTSIDE RECORDS SUMMARY | 2024-06-15 18:27 | XMS_ITS | Encounter Summary ---
Author Organization [facility] Address [address] [place] [address] Care Team Providers Care Bindery Assistant Name Role Phone Robin Tawanna BALLARD Primary Care Provider [phone] Mariam Hernandez MD Primary Care Provider [phone] Crystal Howell APRN Primary Care Provider [phone] Reason for Visit * Reason Onset Date Comments New Patient Visit 11/12/2016 Encounter Details Date Type Department Care Team (Late st Contact Info) Description 11/12/2016 Telephone [facility] Cardiology - [address] [place] [address] Unknown, Doctor New Patient Visit [...] on filedocumented in this encounter Care Teams Bindery Assistant Relationship Specialty Start Date End Date Tawanna Kelly FNP PCP - General 08/23/16 01/03/17 Mariam Hernandez MD [address] [place] [phone] PCP - General 01/04/17 07/17/17 Crystal Howell APRN [address] [address] PCP - General 07/18/17 documented as of this encounter
--- OUTSIDE RECORDS SUMMARY | 2024-06-15 18:27 | XMS_ITS | Encounter Summary ---
Author Organization [facility] Address [address] [place] [address] Care Team Providers Care Physical Therapist Assistant Name Role Phone Tawanna Kelly NELLIE Primary Care Provider [phone] Reason for Visit * Reason Comments Suture / Staple Removal Encounter Details Date Type Department Care Team (Latest Contact Info) Description 08/30/2016 8:00 EDT Office Visit [facility] Dermatology 5th Floor [facility] [address] [place] [address] Unknown, Provider, MD Melo, Mervat Auguste MD PhD [address] [place] [address] [place] [phone] 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
--- OUTSIDE RECORDS SUMMARY | 2024-06-15 18:27 | XMS_ITS | Encounter Summary ---
Author Organization [facility] Address [address] [place] [address] Care Team Providers Care Micropaleontologist Name Role Phone Unavailable Primary Care Provider Unavailabl e Encounter Details Date Type Department Care Team (Late st Contact Info) Description 11/15/[address] [facility] - [facility] [address] [place] [address] Radha Nunez, SHREDDER OPERATOR Social History Tobacco Use Types Packs/Day [...] ? HANNAH DICKERSON ? Accession #: ? [id number] : ? 1950 (Age: 53) ??F ?Collect Date: ? 11/15/2003 Location: ? [facility] ? Receive Date: ? 11/17/2003 Provider: ?RADHA NUNEZ SHREDDER OPERATOR Copy to: ? Specimen/Source: ?ThinPrep Pap [...] ORDERABLES Final Re sult JUSTINE CEVALLOS [address] [place] [address] documented in this encounter Visit Diagnoses Not on filedocumented in this encounter
--- OUTSIDE RECORDS SUMMARY | 2024-06-15 18:27 | XMS_ITS | Encounter Summary ---
Author Organization [facility] Address [address] [place] [address] Care Team Providers Care Child Development Director Name Role Phone Mariam Hernandez MD Primary Care Provider [phone] Reason for Visit * Reason Comments Skin Exam hx MM Encounter Details Date Type Department Care Team (Late st Contact Info) Description 01/08/2017 8:40 EDT Office Visit [facility] Dermatology 3rd Floor [facility] [address] [place] [address] Mervat Melo MD PhD [address] [facility] [address] [place] [phone] Neoplasm of uncertain behavior of skin (Primary [...] to person, place and time. She has Brew[place] type II skin. Cutaneous full body examination [...] the resident's/fellow's note. Mervat Melo MD Dermatology [facility] documented in this encounter Plan of Treatment Not on file documented as of this encounter Visit Diagnoses Diagnosis Neoplasm of uncertain behavior of skin- Primary Scar condition and fibrosis of skin Melanoma in situ of cheek (HCC-CMS) Malignant melanoma of skin of other and unspecified parts of face Enlarged lymph node in neck documented in this encounter Care Teams Child Development Director Relationship Specialty Start Date End Date Mariam Hernandez MD [address] [place] [address] PCP - General 01/04/17 07/17/17 documented as of this encounter
--- OUTSIDE RECORDS SUMMARY | 2024-06-15 18:27 | XMS_ITS | Encounter Summary ---
Author Organization [facility] Address [address] [place] [address] Care Team Providers Care Home Care Physical Therapist Name Role Phone Mariam Hernandez MD Primary Care Provider [phone] Encounter Details Date Type Department Care Team (Late st Contact Info) Description 01/15/2017 Phlebotomy Only [address] [address] Subassembly Assembler, Outpatient Neck mass (Primary Dx) Social History [...] 4.6 3.5 - 5.0 mEq/L 01/15/2017 8:15 [facility] Sodium 142 136 - 145 mEq/L 01/15/2017 8:15 [facility] Chloride 102 96 - 110 mEq/L 01/15/2017 8:15 [facility] CO2 27 22 - 32 mEq/L 01/15/2017 8:15 [facility] Total Alkaline Phosphatase 85 38 - 126 U/L 01/15/2017 8:15 [facility] Bilirubin, Total 0.6 <1.4 mg/dl 01/16/20 17 8:15 [facility] AST 33 15 - 46 U/L 01/15/2017 8:15 [facility] ALT 46 <53 U/L 01/15/2017 8:15 [facility] Albumin 4.6 3.4 - 4.9 g/dl 01/15/2017 8:15 [facility] Total Protein 7.8 6.3 - 8.2 g/dl 01/15/2017 8:15 [facility] Creatinine 0.60 0.52 - 1.04 mg/dl 01/15/2017 8:15 [facility] GFR, Calculated 94 >60 ml/min/1.7 3m2 01/15/2017 8:15 [facility] Comment: eGFR calculated using CKD-EPI equation for non Americans. Multiply eGFR by 1.16 for Americans. BUN 23 10 - 26 mg/dl 01/15/2017 8:15 [facility] Calcium 10.3 8.5 - 10.5 mg/dl 01/15/2017 8:15 [facility] Calculated Calcium 9.8 8.5 - 10.5 mg/dl 01/15/2017 8:15 [facility] Glucose, Serum 160(H) 70 - 100 mg/dl 01/15/2017 8:15 [facility] Comment:Performed at [facility], [place], [place] Fasting? No 01/15/2017 7:29 [facility] Blood specimen (specimen) BLOOD SPECIMEN / Unknown 01/15/2017 7:33 EDT 01/15/2017 7:45 EDT us Mervat Melo MD PhD CHEMISTRY & BLOOD GAS ORD ERABLES Final Result [facility] [address] [place] [address] documented in this encounter Visit Diagnoses Diagnosis Neck mass- Primary Swelling, mass, or lump in head and neck documented in this encounter Care Teams Home Care Physical Therapist Relationship Specialty Start Date End Date Mariam Hernandez MD [address] [place] [address] PCP - General 01/04/17 07/17/17 documented as of this encounter
--- OUTSIDE RECORDS SUMMARY | 2024-06-15 18:27 | XMS_ITS | Encounter Summary ---
Author Organization [facility] Address [address] [place] [address] Care Team Providers Care Client Sales And Service Officer Name Role Phone Mariam Hernandez MD Primary Care Provider [phone] Reason for Visit * Reason Onset Date Comments Discuss Surgery 01/21/2017 has questions ab out treatment before surgery Encounter Details Date Type Department Care Team (Late st Contact Info) Description 01/21/2017 Telephone [facility] - [facility] [address] [place] [address] Alex Aldridge MD [address] [facility], [address] [place] [address] Discuss Surgery (has questions about [...] encounter Miscellaneous Notes * Telephone Encounter - Krystni Owens - 01/22/2017 1042 EDT Contacted Em and discussed the following information: - Em scheduled to see Dr. Aldridge on 01/31/17 at 1:30pm to discuss surgical options and treatment - Em requested to reschedule her MRI Brain w/wo contrast since it's required for a [facility] opinion[facility] and [facility]. Her call was transferred to [facility] so she could reschedule. - Discussed with Em that we will leave the CT and appointment on 03/[address] Aldridge and her surgery on 03/11/17 scheduled. Em will contact our office if she decides to seek treatment at a different facility. - Em requested that our office send referrals to [facility] and [facility]. She provided the following information for [facility]: Dr. Kevin Stockton Contact: Faustina [phone] Em verbalized understanding of all information discussed [...] waiting on a call about an MRI Site Promotion Agent attempted to transfer patient to JULIO Perez, but she was helping other patients at that time. Will route to JULIO Mcclelland. Patient verbalized understanding. * Telephone Encounter - Bella Stratton - 01/21/2017 1201 EDT Patient would like a referral for a second opinion to [facility]. Fax number is [phone] Phone is [phone] * Telephone Encounter - Ethan Wilkins RN - 01/21/2017 1035 EDT Patient called to see if she was eligible for gamma knife procedure for a meningioma resection. This life insurance underwriter stated he had heard about this procedure, but was unsure if we utilize it. She is wonderingif: a) Does Dr. Aldridge utilize gamma knife b) It is available at [facility]? And C) is she eligible forthis procedure to remove the meningioma? Site Promotion Agent stated he would speak with provider and [...] on filedocumented in this encounter Care Teams Client Sales And Service Officer Relationship Specialty Start Date End Date Mariam Hernandez MD [address] [place] [phone] PCP - General 01/04/17 07/17/17 documented as of this encounter
--- OUTSIDE RECORDS SUMMARY | 2024-06-15 18:27 | XMS_ITS | Encounter Summary ---
Author Organization [facility] Address [address] [place] [address] Care Team Providers Care Preparatory Technician Name Role Phone Mariam Hernandez MD Primary Care Provider [phone] Encounter Details Date Type Department Care Team (Late st Contact Info) Description 01/10/2017 Orders Only [facility] Dermatology 3rd Floor [facility] [address] [place], [place] [address] Mervat Melo MD PhD [address] [place] [address] [place] [phone] Neck mass (Primary Dx) Social History [...] 4.6 3.5 - 5.0 mEq/L 01/15/2017 8:15 [facility] Sodium 142 136 - 145 mEq/L 01/15/2017 8:15 [facility] Chloride 102 96 - 110 mEq/L 01/15/2017 8:15 [facility] CO2 27 22 - 32 mEq/L 01/15/2017 8:15 [facility] Total Alkaline Phosphatase 85 38 - 126 U/L 01/15/2017 8:15 [facility] Bilirubin, Total 0.6 <1.4 mg/dl 01/16/20 17 8:15 [facility] AST 33 15 - 46 U/L 01/15/2017 8:15 [facility] ALT 46 <53 U/L 01/15/2017 8:15 [facility] Albumin 4.6 3.4 - 4.9 g/dl 01/15/2017 8:15 [facility] Total Protein 7.8 6.3 - 8.2 g/dl 01/15/2017 8:15 [facility] Creatinine 0.60 0.52 - 1.04 mg/dl 01/15/2017 8:15 [facility] GFR, Calculated 94 >60 ml/min/1.7 3m2 01/15/2017 8:15 [facility] Comment: eGFR calculated using CKD-EPI equation for non Americans. Multiply eGFR by 1.16 for Americans. BUN 23 10 - 26 mg/dl 01/15/2017 8:15 [facility] Calcium 10.3 8.5 - 10.5 mg/dl 01/15/2017 8:15 [facility] Calculated Calcium 9.8 8.5 - 10.5 mg/dl 01/15/2017 8:15 [facility] Glucose, Serum 160(H) 70 - 100 mg/dl 01/15/2017 8:15 [facility] Comment:Performed at [facility], [place], [place] Fasting? No 01/15/2017 7:29 [facility] Blood specimen (specimen) BLOOD SPECIMEN / Unknown 01/15/2017 7:33 EDT 01/15/2017 7:45 EDT us Mervat Melo MD PhD CHEMISTRY & BLOOD GAS ORD ERABLES Final Result [facility] [address] [place] [address] documented in this encounter Visit Diagnoses Diagnosis Neck mass- Primary Swelling, mass, or lump in head and neck documented in this encounter Care Teams Preparatory Technician Relationship Specialty Start Date End Date Mariam Hernandez MD [address] [place] [address] PCP - General 01/04/17 07/17/17 documented as of this encounter
--- OUTSIDE RECORDS SUMMARY | 2024-06-15 18:27 | XMS_ITS | Encounter Summary ---
Author Organization [facility] Address [address] [place] [address] Care Team Providers Care Lace Burn Out Tender Name Role Phone Mariam Hernandez MD Primary Care Provider [phone] Reason for Visit * Reason Comments Follow-up h/o MM Skin Exam FBSE Skin Lesion s/p MOHS on left lavern ek, patient reporting patel colored skin Encounter Details Date Type Department Care Team (Late st Contact Info) Description 04/19/2017 13:00 EST Office Visit [facility] Dermatology 3rd Floor [facility] [address] [place], [place] [phone] Mervat Melo MD PhD [address] [place] [phone] Neoplasm of uncertain behavior of skin [...] shower. DISCOMFORT: Extra-Strength Tylenol, as directed by machining and assembly supervisor, usually relieves any pain you may have. [...] I meningioma which she had excised at [facility]. She is doing very well with a [...] PATIENT : Em Dickerson : MRN: [id number] SURGEON: Mervat Melo MD 04/19/2017 13:27 The [...] should problems arise. Mervat Melo MD Dermatology [facility] documented in this encounter Plan of [...] daily. added in this encounter Care Teams Lace Burn Out Tender Relationship Specialty Start Date End Date Mariam Hernandez MD [address] [place] [phone] PCP - General 01/04/17 07/17/17 documented as of this encounter
--- OUTSIDE RECORDS SUMMARY | 2024-06-15 18:27 | XMS_ITS | Encounter Summary ---
Author Organization [facility] Address [address] [place] [address] Care Team Providers Care Multiple Sclerosis Nurse Name Role Phone Nicole Dang NP Primary Care Provider [phone] Reason for Visit * Reason Onset Date Comments Requesting Sooner Appointment 08/01/2016 MO HS Encounter Details Date Type Department Care Team (Late st Contact Info) Description 08/01/2016 Telephone [facility] Dermatology 3rd Floor [facility] [address] [place], [place] [phone] Narayan Morin MD [address] [place] [address] [place] [phone] Requesting Sooner Appointment ([facility]) Social History Tobacco [...] on filedocumented in this encounter Care Teams Multiple Sclerosis Nurse Relationship Specialty Start Date End Date Nicole Dang, SUSANA [address] [facility] [place] [address] PCP - General 03/21/15 08/22/16 documented as of this encounter
--- OUTSIDE RECORDS SUMMARY | 2024-06-15 18:27 | XMS_ITS | Encounter Summary ---
Author Organization [facility] Address [address] [place] [address] Care Team Providers Care Terrazzo Layer Name Role Phone Mariam Hernandez MD Primary Care Provider [phone] Reason for Visit * Reason Onset Date Comments Appointment Related 01/16/2017 Encounter Details Date Type Department Care Team (Late st Contact Info) Description 01/16/2017 Telephone [facility] - [address] [phone] Alex Aldridge MD [address] [place] [address], [address] [place] [address] Appointment Related Social History Tobacco [...] with the following appointment details: - [facility] [place] Check in at 1pm at registration MRI at 1:45pm 03/05/17 - [facility] [place] Appointment at 10:45pm with Dr. Aldridge Check in at registration at 12:30pm CT at 1pm Advised Em to contact our office if she has any questions or needs to reschedule. documented in this encounter Plan of Treatment Not on file documented as of this encounter Visit Diagnoses Not on filedocumented in this encounter Care Teams Terrazzo Layer Relationship Specialty Start Date End Date Mariam Hernandez MD [address] [place] [phone] PCP - General 01/04/17 07/17/17 documented as of this encounter
--- OUTSIDE RECORDS SUMMARY | 2024-06-15 18:27 | XMS_ITS | Encounter Summary ---
Author Organization [facility] Address [address] [place] [address] Care Team Providers Care Residue Furnace Operator Name Role Phone Mariam Hernandez MD Primary Care Provider [phone] Encounter Details Date Type Department Care Team (Latest Contact Info) Description 01/15/2017 6:16 EDT - 01/15/2017 23:59 EDT Hospital Encounter [address] [address] Mervat Melo MD PhD [address] [place] [phone] Discharge Disposition: Auto Discharge Social History Tobacco [...] on filedocumented in this encounter Care Teams Residue Furnace Operator Relationship Specialty Start Date End Date Mariam Hernandez MD [address] [place] [address] PCP - General 01/04/17 07/17/17 documented as of this encounter
--- OUTSIDE RECORDS SUMMARY | 2024-06-15 18:27 | XMS_ITS | Encounter Summary ---
Author Organization [facility] Address [address] [place] [address] Care Team Providers Care Nurse Sitter Name Role Phone Unavailable Primary Care Provider Unavailabl e Encounter Details Date Type Department Care Team (Late st Contact Info) Description 03/22/2008 Before PRISM Converted Visit (Maple) [facility] - Maple conversion [address] [place] [address] Radha Nunez, SUSANA Social History Tobacco Use [...] 03/25/2008 14:46 EST us Radha Oj Mayra BREAST SURGEON MICROBIOLOGY - GENERAL ORDERA PETERS Final Result [facility] [address] [place] [id number] * CYTOPATHOLOGY (03/22/2008 0:00 EST) Pathology Report: CYTOPATHOLOGY REPORT ? Reports generated via electronic interface contain original data; ? however they are lacking the format of the original report. ? Caution should be taken when reading/interpreti ng unformatted reports. ? Name: ? HANNAH DICKERSON ? Accession #: ? [id number] ? : ? 1950 (Age: 57) ??F ?Collect Date: ? 03/22/2008 ? Location: ? [facility] ? Receive Date: ? 03/23/2008 ? Provider: ?RADHA M MAYRA BREAST SURGEON ? Copy to: ? Specimen/Source: ?Pap Test, [...] [facility] 03/22/2008 03/23/2008 us Radha Nunez BREAST SURGEON PATHOLOGY ORDERABLES Final Re sult [facility] [address] [place] [address] documented in this encounter Visit Diagnoses Not on filedocumented in this encounter
--- OUTSIDE RECORDS SUMMARY | 2024-06-15 18:27 | XMS_ITS | Encounter Summary ---
Author Organization [facility] Address [address] [place] [address] Care Team Providers Care Rehab Aid Name Role Phone Unavailable Primary Care Provider Unavailabl e Encounter Details Date Type Department Care Team (Late st Contact Info) Description 10/08/2001 Results Only [facility] - Maple conversion [address] [place] [address] Radha Nunez, INSTITUTIONAL AIDE Social History Tobacco Use Types Packs/Day Years [...] ? HANNAH DICKERSON ? Accession #: ? [id number] : ? 1950 (Age: 51) ??F ?Collect Date: ? 10/08/2001 Location: ? [facility] ? Receive Date: ? 10/13/2001 Provider: ?RADHA NUNEZ INSTITUTIONAL AIDE Copy to: ? Specimen/Source: ?ThinPrep Pap Test, [...] ORDERABLES Final Re sult [facility] [address] [place] [address] documented in this encounter Visit Diagnoses Not on filedocumented in this encounter
--- OUTSIDE RECORDS SUMMARY | 2024-06-15 18:27 | XMS_ITS | Encounter Summary ---
Author Organization [facility] Address [address] [place] [address] Care Team Providers Care Front Office Spec Name Role Phone Mariam Hernandez MD Primary Care Provider [phone] Reason for Visit * Reason Onset Date Comments Surgery Scheduling 02/21/2017 11.7 Encounter Details Date Type Department Care Team (Late st Contact Info) Description 02/21/2017 Telephone [facility] Neurosurgery - [facility] [address] [place], [place] [phone] Alex Aldridge MD [address] [place] [address], [address] [place] [address] Surgery Scheduling (11.7) Social History [...] on filedocumented in this encounter Care Teams Front Office Spec Relationship Specialty Start Date End Date Mariam Hernandez MD [address] [place] [phone] PCP - General 01/04/17 07/17/17 documented as of this encounter
--- OUTSIDE RECORDS SUMMARY | 2024-06-15 18:27 | XMS_ITS | Encounter Summary ---
Author Organization [facility] Address [address] [place] [address] Care Team Providers Care Collar Feller Name Role Phone Mariam Hernandez MD Primary Care Provider [phone] Encounter Details Date Type Department Care Team (Late st Contact Info) Description 01/11/2017 Orders Only [facility] Dermatology 3rd Floor [facility] [address] [place], [place] [address] Mervat Melo MD PhD [address] [place] [address] [place] [phone] Neck mass (Primary Dx) Social History [...] neck documented in this encounter Care Teams Collar Feller Relationship Specialty Start Date End Date Mariam Hernandez MD [address] [place] [phone] PCP - General 01/04/17 07/17/17 documented as of this encounter
--- OUTSIDE RECORDS SUMMARY | 2024-06-15 18:27 | XMS_ITS | Encounter Summary ---
Author Organization [facility] Address [address] [place] [address] Care Team Providers Care It Professional Name Role Phone Mariam Hernandez MD Primary Care Provider [phone] Reason for Visit * Reason Onset Date Comments Eye Problem 01/25/2017 Encounter Details Date Type Department Care Team (Late st Contact Info) Description 01/25/2017 Telephone [facility] - [address] [phone] Alex Aldridge MD [address] [place] [address], [address] [place] [address] Eye Problem Social History Tobacco [...] filedocumented in this encounter Care Teams It Professional Relationship Specialty Start Date End Date Mariam Hernandez MD [address] [place] [address] PCP - General 01/04/17 07/17/17 documented as of this encounter
--- OUTSIDE RECORDS SUMMARY | 2024-06-15 18:27 | XMS_ITS | Encounter Summary ---
Author Organization [facility] Address [address] [place] [address] Care Team Providers Care Assistant Gm Of Content & Delivery Name Role Phone Mariam Hernandez MD Primary Care Provider Reason for Referral * Radiology Services (Routine) - Closed Specialty Diagnoses / Procedures Referred By Contiain t Referred To Contact Diagnoses Meningioma (HCC-CMS) Procedures MR HEAD W/WO CONTRAST Alex Aldridge MD Phone: tel: fax: Referral ID Status Reason Start Date Expiration Date Visits Re quested Visits Authorized [id number] Closed 01/15/2017 1 1 Reason for Visit * Reason Comments New Patient Visit tumor Encounter Details Date Type Department Care Team (Late st Contact Info) Description 01/15/2017 13:00 EDT Office Visit [facility] Neurosurgery - [address] [phone] Alex Aldridge MD [address] [place] [address], [address] [place] [phone] Meningioma (CMS-HCC) (HCC-CMS) (Primary Dx) Discharge Disposition: [...] had an MRI 15 years ago in [facility] for her vertigo; however, I do [...] No pronator drift. Speech clear and fluent. Knurling Machine Operator, biceps, triceps, deltoids 5/5 bilaterally. Lower limbs [...] surgery briefly. 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 [...] PM Clinical History/Comments: D32.9-Benign neoplasm of meninges, [id number]; meningioma Comparison: Neck CT January 15, 2017. [...] in this encounter Visit Diagnoses Diagnosis Meningioma (HCC-[facility])- Primary Benign neoplasm of cerebral meninges documented in this encounter Care Teams Assistant Gm Of Content & Delivery Relationship Specialty Start Date End Date Mariam Hernandez MD [address] [place] [address] PCP - General 01/04/17 07/17/17 documented as of this encounter
--- OUTSIDE RECORDS SUMMARY | 2024-06-15 18:27 | XMS_ITS | Encounter Summary ---
Author Organization [facility] Address [address] [place] [address] Care Team Providers Care Pathology Assistant Name Role Phone Unavailable Primary Care Provider Unavailabl e Encounter Details Date Type Department Care Team (Late st Contact Info) Description 09/09/2000 Results Only [facility] - Maple conversion [address] [place] [address] Radha Nunez, PIPE LINER Social History Tobacco Use Types Packs/Day Years [...] ? HANNAH DICKERSON ? Accession #: ? [id number] : ? 1950 (Age: 50) ??F ?Collect Date: ? 09/09/2000 Location: ? [facility] ? Receive Date: ? 09/10/2000 Provider: ?RADHA NUNEZ PIPE LINER Copy to: ? Specimen/Source: ?ThinPrep Pap Test, Cervix/Endocervix Last Menstrual Period: ? SPECIMEN ADEQUACY ? Satisfactory for evaluation. GENERAL CATEGORIZATION ? Within Normal Limits ? Document reviewed and electronically signed by: ? Riya Lim, ??CT(ASCP) ? Report Date: ??09/11/2000 09:53 End of Report [facility] 09/09/2000 09/10/2000 us Radha Nunez NP PATHOLOGY ORDERABLES Final Re sult [facility] [address] [place] [address] documented in this encounter Visit Diagnoses Not on filedocumented in this encounter
--- OUTSIDE RECORDS SUMMARY | 2024-06-15 18:27 | XMS_ITS | Encounter Summary ---
Author Organization [facility] Address [address] [place] [address] Care Team Providers Care Cable Operator Name Role Phone Mariam Hernandez MD Primary Care Provider [phone] Reason for Visit * Reason Onset Date Comments Appointment Related 01/10/2017 Encounter Details Date Type Department Care Team (Late st Contact Info) Description 01/10/2017 Telephone [facility] Dermatology 3rd Floor [facility] [address] [place], [place] [address] Mervat Melo MD PhD [address] [place] [address] [place] [phone] Appointment Related Social History Tobacco Use Types [...] on filedocumented in this encounter Care Teams Cable Operator Relationship Specialty Start Date End Date Mariam Hernandez MD [address] [place] [address] PCP - General 01/04/17 07/17/17 documented as of this encounter
--- OUTSIDE RECORDS SUMMARY | 2024-06-15 18:27 | XMS_ITS | Encounter Summary ---
Author Organization [facility] Address [address] [place] [address] Care Team Providers Care Gas Meter Installer Helper Name Role Phone Mariam Hernandez MD Primary Care Provider [phone] Encounter Details Date Type Department Care Team (Late st Contact Info) Description 02/16/2017 11:39 EDT - 02/16/2017 23:59 EDT Hospital Encounter [address] [address] Alex Aldridge MD [address] [place] [address], [address] [place] [address] Discharge Disposition: Auto Discharge Social [...] on filedocumented in this encounter Care Teams Gas Meter Installer Helper Relationship Specialty Start Date End Date Mariam Hernandez MD [address] [place] [address] PCP - General 01/04/17 07/17/17 documented as of this encounter
--- OUTSIDE RECORDS SUMMARY | 2024-06-15 18:27 | XMS_ITS | Encounter Summary ---
Author Organization [facility] Address [address] [place] [address] Care Team Providers Care Water Plant Pump Operator Supervisor Name Role Phone Tawanna Kelly NELLIE Primary Care Provider [phone] Reason for Visit * Reason Comments Melanoma left cheek Encounter Details Date Type Department Care Team (Late st Contact Info) Description 08/23/2016 8:00 EDT Office Visit [facility] Dermatology 5th [facility] [address] [place] [address] Lena Mcqueen MD [address] [place] [address] [place] [phone] Melanoma in situ of cheek (CMS-HCC) [...] don't bend over to garbage pick up worker objects or tie shoes for a few [...] with pressure, please call the office, Dr. cMqueen, or proceed to the nearest emergency room [...] rapidly swells. CONTACT INFORMATION: To reach the food and nutrition supervisor physician: During office hours: 8:00 am - 5:00 PM Saturday through Saturday ? Call:?? [phone] ? Ask to speak with a surgery nurse AFTER HOURS/WEEKENDS/HOLIDAYS:?First call Dr. Lena Mcqueen's cell phone: [phone]; if unable to reach Dr. Mcqueen, Call [phone] for the MOHS surgeon food and nutrition supervisor. WOUND CARE INSTRUCTIONS for ONE WEEK AFTER [...] elsewhere. For thatreason, followup with provider at [facility] (pt prefers to switch care here), for ongoing skin surveillance examinations, after surgery, will be imperative. The patient has been scheduled to undergo surgery today. Note: Valium 5mg prescribed today for procedure. MOHS OPERATIVE REPORT USING MART-1 IMMUNOSTAINS Patient Name: Linda Sinha Date of Service: August 23, 2016 Surgeon: Lena Mcqueen MD Etcher Aircraft: Mariangel Hill MD; Jackson Hickey MD Case [...] were mapped and handed personally to the field radio technician for frozen sectioning. The tissue was [...] reagents' performance characteristics have been determined by [facility]. This laboratory is certified under the Clinical Laboratory Improvement Amendments of 1988 (CLIA-88) as qualified to perform high complexity clinical laboratory testing. Repair: COMPLEX REPAIR Patient Information: Linda Sinha 66 y.o. female Referring Provider: Tal Cha Surgeon: Lena Mcqueen MD Etcher Aircraft: Jackson Hickey MD; Mariangel Hill MD Preoperative [...] follow up with either a provider at [facility] or [facility] (she prefers to transfer care to [facility]) for her annual skin examinations. I thank Dr. Cha for involving me in this nice patient's care. Lena Mcqueen MD Dermatology & Mohs Electrical Controls DesignerShoulder Punchercustoms opener verifier packer, Dermatology Division [facility] 08/23/2016 documented in this encounter Plan of Treatment Scheduled Orders Name Type Priority Associated Diagnoses Orde r Schedule SURGICAL PATHOLOGY- ORDER ONLY Pathology Routine Melanoma in situ of cheek (CMS-HCC) ([facility]) Ordered: 08/23/2016 documented as of this encounter [...] ? LINDA SINHA ? Accession #: ? [id number] ? : ? 1950 (Age: 66) ??F [...] the time of Mohs micrographic surgery. ??(Dr. 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
--- OUTSIDE RECORDS SUMMARY | 2024-06-15 18:27 | XMS_ITS | Encounter Summary ---
Author Organization [facility] Address [address] [place] [address] Care Team Providers Care Precision Lens Polisher Name Role Phone Unavailable Primary Care Provider Unavailabl e Encounter Details Date Type Department Care Team (Late st Contact Info) Description 02/13/2005 Results Only [facility] - Maple conversion [address] [place] [address] Margarita Colorado, [facility] [address] [place] [phone] Social History Tobacco Use Types Packs/Day Years [...] ? HANNAH DICKERSON ? Accession #: ? [id number] : ? 1950 (Age: 54) ??F ?Collect Date: ? 02/13/2005 Location: ? [facility] ? Receive Date: ? 02/15/2005 Provider: ?MARGARITA COLORADO MACHINE SIZER Copy to: ? Specimen/Source: ?ThinPrep Pap Test, Cervix/Endocervix, processed on [employer] ThinPrep Imaging System, with manual evaluation Last [...] [facility] CE[facility]ALLOS 02/13/2005 02/15/2005 us Margarita Colorado MACHINE SIZER PATHOLOGY ORDERABLES Final R esult [facility] CEVALLOS [address] [place] [address] documented in this encounter Visit Diagnoses Not on filedocumented in this encounter
--- OUTSIDE RECORDS SUMMARY | 2024-06-15 18:27 | XMS_ITS | Encounter Summary ---
Author Organization [facility] Address [address] [place] [address] Care Team Providers Care Steel Rule Die Maker Apprentice Name Role Phone Mariam Hernandez MD Primary Care Provider [phone] Reason for Visit * Reason Onset Date Comments Wound Care 04/19/2017 wound instructio ns/suture removal kit Encounter Details Date Type Department Care Team (Late st Contact Info) Description 04/19/2017 Telephone [facility] Dermatology 3rd Floor [facility] [address] [place], [place] [address] Mervat Melo MD PhD [address] [place] [phone] Wound Care (wound instructions/suture removal kit) Social [...] Telephone Encounter - Rahel Werner - 04/19/2017 1610 EST Patient has a question as to when the stitches come out. Patient is requesting suture removal kit be mailed to her. Please call. documented in this encounter Plan of Treatment Not on file documented as of this encounter Visit Diagnoses Not on filedocumented in this encounter Care Teams Steel Rule Die Maker Apprentice Relationship Specialty Start Date End Date Mariam Hernandez MD [address] [place] [address] PCP - General 01/04/17 07/17/17 documented as of this encounter
--- OUTSIDE RECORDS SUMMARY | 2024-06-15 18:27 | XMS_ITS | Encounter Summary ---
Author Organization [facility] Address [address] [place] [address] Care Team Providers Care Senior Financial Name Role Phone Mariam Hernandez MD Primary Care Provider [phone] Reason for Visit * Reason Onset Date Comments Results 01/15/2017 Encounter Details Date Type Department Care Team (Late st Contact Info) Description 01/15/2017 Telephone [facility] Dermatology 3rd Floor [facility] [address] [place], [place] [address] Mervat Melo MD PhD [address] [place] [address] [place] [phone] Results Social History Tobacco Use Types Packs/Day [...] a likely left temporal meningioma. Called neurosurg dimension mill worker resident Rob Landin who very kindly arranged [...] filedocumented in this encounter Care Teams Senior Financial Relationship Specialty Start Date End Date Mariam Hernandez MD [address] [place] [address] PCP - General 01/04/17 07/17/17 documented as of this encounter
--- OUTSIDE RECORDS SUMMARY | 2024-06-15 18:27 | XMS_ITS | Encounter Summary ---
Author Organization [facility] Address [address] [place] [address] Care Team Providers Care Customs Verifier Name Role Phone Unavailable Primary Care Provider Unavailabl e Encounter Details Date Type Department Care Team (Late st Contact Info) Description 04/24/2011 Results Only [facility] Laboratory Services - [facility] [address] [place] [address] Radha Nunez, SUSANA Social History [...] ? HANNAH DICKERSON ? Accession #: ? [id number] ? : ? 1950 (Age: 61) ??F ?Collect Date: ? 04/24/2011 ? Location: ? [facility] ? Receive Date: ? 04/25/2011 ? Provider: RADHA NUNEZ CORONARY CLINICAL SPECIALIST Copy to: COURTNEY ROTH ELECTRIC BRAIN WAVE EQUIPMENT MECHANIC ? Final Report SPECIMEN ADEQUACY ? Satisfactory [...] [facility] 04/24/2011 04/25/2011 us Radha Nunez CORONARY CLINICAL SPECIALIST PATHOLOGY ORDERABLES Final Re sult [facility] [address] [place] [address] documented in this encounter Visit Diagnoses Not on filedocumented in this encounter
--- OUTSIDE RECORDS SUMMARY | 2024-06-15 18:27 | XMS_ITS | Encounter Summary ---
Author Organization [facility] Address [address] [place] [address] Care Team Providers Care Education Technician Name Role Phone Mariam Hernandez MD Primary Care Provider [phone] Reason for Visit * Reason Onset Date Comments Other 01/11/2017 Encounter Details Date Type Department Care Team (Late st Contact Info) Description 01/11/2017 Telephone [facility] Dermatology 3rd Floor [facility] [address] [place], [place] [address] Mervat Melo MD PhD [address] [place] [address] [place] [phone] Other Social History Tobacco Use Types Packs/Day [...] of CT appointment scheduled for tomorrow at [facility] 8:30AM check in. Advised patient I am waiting on cytopathology for appointment time for FNA prior to CT if possible. Eloisa Park 01/14/2017 9:19 * Telephone Encounter - Nikole Langford - 01/14/2017 0844 EDT Called medicare at [phone] With CPT Code 76642. [employer] does NOT require authorization. Scan has been made for tomorrow at [facility] - check in at 8:30 for [...] FNA BEFORE the CT (They are aware) 1-0823. Let patient know to get labs drawn [...] on filedocumented in this encounter Care Teams Education Technician Relationship Specialty Start Date End Date Mariam Hernandez MD [address] [place] [address] PCP - General 01/04/17 07/17/17 documented as of this encounter
--- OUTSIDE RECORDS SUMMARY | 2024-06-15 18:27 | XMS_ITS | Encounter Summary ---
Author Organization [facility] Address [address] [place] [address] Care Team Providers Care Rotary Operator Name Role Phone Nicole Dang NP Primary Care Provider [phone] Reason for Visit * Reason Onset Date Comments Melanoma 07/20/2016 patient requesti ng a second oppion. Faxing notes and pathology report Encounter Details Date Type Department Care Team (Late st Contact Info) Description 07/20/2016 Telephone [facility] Dermatology 5th Floor [facility] [address] [place], [place] [phone] Mustapha Napier MD [address] [place] [address] [place] [phone] Melanoma (patient requesting a second oppion. Faxing [...] Telephone Encounter - Chantale Gregg - 07/25/2016 8138 EDT Spoke to patient and as for [...] not a second opinion Biopsy performed at [facility] - melanoma in situ, face Patient would like Mohs surgery performed by [facility] Dermatology Pathology report has been requested Patient is also calling [facility] to request referral to our practice She [...] EDT Requested pathology to be faxed from [facility] Dermatology. Tonia Lundberg 07/23/2016 8:31 * Telephone Encounter - Tonia Lundberg - 07/23/2016 0815 EDT Patient calling to check in on status of referral. Informed patient that it looks like we have received a fax with the referral and some notes. Pathology was not included in fax. Let patient know that I will call Dr. Cha's office at [facility] to request pathology to be sent. Patient would liketo schedule appointment NEELAM. Tonia Lundberg 07/23/2016 8:23 * Telephone Encounter - Chantale Gregg - 07/20/2016 1646 EDT patient requesting a second oppion. Faxing notes and pathology report. 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
--- OUTSIDE RECORDS SUMMARY | 2024-06-15 18:27 | XMS_ITS | Encounter Summary ---
Author Organization [facility] Address [address] [place] [address] Care Team Providers Care Pecan Gatherer Name Role Phone Unavailable Primary Care Provider Unavailabl e Encounter Details Date Type Department Care Team (Late st Contact Info) Description 11/04/2002 Results Only [facility] - Maple conversion [address] [place] [address] Radha Nunez, FINISHED CIGAR MAKER Social History Tobacco Use Types Packs/Day Years [...] ? HANNAH DICKERSON ? Accession #: ? [id number] : ? 1950 (Age: 52) ??F ?Collect Date: ? 11/04/2002 Location: ? [facility] ? Receive Date: ? 11/09/2002 Provider: ?RADHA NUNEZ FINISHED CIGAR MAKER Copy to: ? Specimen/Source: ?ThinPrep Pap Test, [...] ORDERABLES Final Re sult [facility] CEVALLOS [address] [place] [address] documented in this encounter Visit Diagnoses Not on filedocumented in this encounter
--- OUTSIDE RECORDS SUMMARY | 2024-06-15 18:27 | XMS_ITS | Encounter Summary ---
Author Organization [facility] Address [address] [place] [address] Care Team Providers Care Picker Name Role Phone Unavailable Primary Care Provider Unavailabl e Encounter Details Date Type Department Care Team (Late st Contact Info) Description 02/18/2006 Results Only [facility] - Maple conversion [address] [place] [address] Radha Nunez, SMASHER Social History Tobacco Use Types Packs/Day Years [...] ? HANNAH DICKERSON ? Accession #: ? [id number] : ? 1950 (Age: 55) ??F ?Collect Date: ? 02/18/2006 Location: ? [facility] ? Receive Date: ? 02/19/2006 Provider: ?RADHA NUNEZ SMASHER Copy to: ? Specimen/Source: ?ThinPrep Pap Test, Cervix/Endocervix, processed on [employer] ThinPrep Imaging System, with manual evaluation Last [...] ORDERABLES Final Re sult JUSTINE CEVALLOS [address] [place] [address] documented in this encounter Visit Diagnoses Not on filedocumented in this encounter
--- OUTSIDE RECORDS SUMMARY | 2024-06-15 18:27 | XMS_ITS | Encounter Summary ---
Author Organization [facility] Address [address] [place] [address] Care Team Providers Care Masonry Installer Name Role Phone Unavailable Primary Care Provider Unavailabl e Encounter Details Date Type Department Care Team (Late st Contact Info) Description 02/26/2007 Results Only [facility] - Maple conversion [address] [place] [address] Radha Nunez, SAP PLANT MAINTENANCE CONSULTANT Social History Tobacco Use Types Packs/Day Years [...] ? HANNAH DICKERSON ? Accession #: ? [id number] : ? 1950 (Age: 56) ??F ?Collect Date: ? 02/26/2007 Location: ? [facility] ? Receive Date: ? 02/27/2007 Provider: ?RADHA NUENZ SAP PLANT MAINTENANCE CONSULTANT Copy to: ? Specimen/Source: ?ThinPrep Pap Test, Cervix/Endocervix, processed on [employer] ThinPrep Imaging System, with manual evaluation Last [...] Final Re sult [facility] [address] [place] [address] documented in this encounter Visit Diagnoses Not on filedocumented in this encounter
--- OUTSIDE RECORDS SUMMARY | 2024-06-15 18:27 | XMS_ITS | Encounter Summary ---
Author Organization [facility] Address [address] [place] [address] Care Team Providers Care Culinary Assistant Name Role Phone Mariam Hernandez MD Primary Care Provider [phone] Reason for Visit * Reason Onset Date Comments Medication Questions 02/05/2017 Encounter Details Date Type Department Care Team (Late st Contact Info) Description 02/05/2017 Telephone [facility] - [address] [id number] Alex Aldridge MD [address] [place] [address], [address] [place] [address] Medication Questions Social History Tobacco [...] back and left voice message for this specifications writer. This specifications writer called the patient back andstated that [...] Currently mailing valium prescription to desired pharmacy ([facility] in [place], [place]) * Telephone Encounter - Ethan Wilkins RN - 02/05/2017 1301 EDT Patient is requesting MRI medication due to an allergy to contrast. Her MRI is scheduled for 02/16 at 1300. She is also requesting valium for the MRI due to claustrophobia. She has taken valium in the past with no adverse reactions. VPMS queried. Her desired pharmacy is [facility] in [place], [place]. Will route to provider for review. [...] on filedocumented in this encounter Care Teams Culinary Assistant Relationship Specialty Start Date End Date Mariam Hernandez MD [address] [place] [address] PCP - General 01/04/17 07/17/17 documented as of this encounter
--- OUTSIDE RECORDS SUMMARY | 2024-06-15 18:27 | XMS_ITS | Encounter Summary ---
Author Organization [facility] Address [address] [place] [address] Care Team Providers Care Online Tutor Name Role Phone Unavailable Primary Care Provider Unavailabl e Encounter Details Date Type Department Care Team (Late st Contact Info) Description 04/07/2014 Results Only [facility] Laboratory Services - [facility] [address] [place] [address] Radha Nunez, SUSANA Social History [...] ? HANNAH DICKERSON ? Accession #: ? [id number] : ? 1950 (Age: 63) ??F ?Collect Date: ? 04/07/2014 Location: ? [facility] ? Receive Date: ? 04/08/2014 Provider: ?RADHA NUNEZ SWIMMING COACH OR INSTRUCTOR Copy to: ?MARY ELLEN RIZO SWIMMING COACH OR INSTRUCTOR ? Specimen/Source: ?Pap Test, Cervix/Endocervix, ThinPrep Imaging System with manual evaluation Last Menstrual Period: ? 1996 ? SPECIMEN ADEQUACY ? Satisfactory for Evaluation - transformation zone component present GENERAL CATEGORIZATION ? Negative for Intraepithelial Lesion or Malignancy ? Document reviewed and electronically signed by: ? GRIS Torres(ASCP) ? Report Date: ??04/13/2014 08:03 End of Report [facility] 04/07/2014 04/08/2014 us Radha Nunez NP PATHOLOGY ORDERABLES Final Re sult [facility] [address] [place] [address] documented in this encounter Visit Diagnoses Not on filedocumented in this encounter
--- OUTSIDE RECORDS SUMMARY | 2024-06-15 18:28 | XMS_ITS | Encounter Summary ---
Author Organization [facility] [place] [address] [place] [address] Care Team Providers Care Verifying Machine Operator Name Role Phone Crystal Howell APRN Primary Care Provider [phone] Reason for Referral * Diagnostic Test (Routine) - Closed Specialty Diagnoses / Procedures Referred By Contac t Referred To Contact Radiology Diagnoses Paresthesias Procedures MRI Lumbar Spine wo Contrast (Generic) Mariam Hernandez MD [address] [place] [address] [place] [address] Referral ID Status Reason Start Date Expiration Date V isits Requested Visits Authorized [id number] Closed Specialty Service Requested 03/14/2023 09/11/2024 1 1 Reason for Visit * Diagnostic Test (Routine) - Closed Specialty Diagnoses / Procedures Referred By Contac t Referred To Contact Radiology Diagnoses Paresthesias Procedures MRI Lumbar Spine wo Contrast (Generic) Mariam Hernandez MD [address] [place] [address] [place] [address] Referral ID Status Reason Start Date Expiration Date V isits Requested Visits Authorized [id number] Closed Specialty Service Requested 03/14/2023 09/11/2024 1 1 Encounter Details Date Type Department Care Team (Latest Contact Info) Description 03/15/2023 2:37 PM EST Hospital [place] [address] Mariam Hernandez MD [address] [place] [address] Paresthesias Discharge Disposition: Home Social History Tobacco [...] End Date fluticasone propionate (FLONASE) 50 mcg/actuation Rincon, Suspension SHAKE LIQUID AND USE 1 SPRAY IN EACH NOSTRIL TWICE DAILY 11/15/2020 HERBAL DRUGS ORAL Take 2 tablets by mouth nightly as needed. Actually take CBD Oil 09/17/2023 documented as of this encounter Progress Notes * Nayla Hernandez RN - 03/14/2023 11:48 AM EST MRI PRE-SEDATION ASSESSMENT NOTE NAME: Em Dickerson AGE: 72 y.o. : 1950 [address] [facility] [address] Female [phone] (home) Telephone Information: Crystal Howell APRN No primary care provider on file. Allergies Allergen Reactions Iodine And Iodide Containing Products Anaphylaxis Penicillins Hives Macrobid [Nitrofurantoin Monohyd/M-Cryst] Nitrofurantoin Other (See Comments) Stomach upset Date/Time of call: March 14, 2023/11:49 AM/ SCHEDULED SCAN: MRI LUMBAR SPINE WITHOUT CONTRAST [[id number]] HEIGHT: WEIGHT: Have you had a PREVIOUS [...] tolerated with Valium) You must have a cab driver present when you check in. This patient has been informed that they require a cab driver to drive them home after this procedure. In the absence of a cab driver, IR will not be able tosedate for your scan. Pt verbalized understanding of these instructions during the pre-procedure education via phone. Yes Name of cab driver: Rob Allison (Partner) Phone number: PRIOR [...] Resonan ce Impressions 03/17/2023 9:46 AM EST Qrty-[id number] degenerative changes as outlined above. Comment: The [...] who have questions please contact the health grounds caretaker that requested your imaging first. ? Electronically signed by: Lonnie Mcclendon MD, [facility] ([phone]), at 03/17/2023 9:46 AM Narrative 03/17/2023 9:46 [...] significantcanal or foraminal stenosis. No herniation. IMPRESSION Luqc-ku-hwxonjmc degenerative changes as outlined above. Comment: The following findings are so common in people without low backpain that while we report their presence, they must be interpreted with cautionand in context of the clinical situation (Reference- Sanjeev Et Al, [id number]). Findings: (Prevalence in patients without low back [...] patients who have questions please contactthe health grounds caretaker that requested your imaging first. Mariam Hernandez [...] mg documented in this encounter Care Teams Verifying Machine Operator Relationship Specialty Start Date End Date Crystal Howell, FROZEN PIE MAKER [address] [place] [address] PCP - General Family Medicine 02/27/17 documented as of this encounter
--- OUTSIDE RECORDS SUMMARY | 2024-06-15 18:28 | XMS_ITS | Encounter Summary ---
Author Organization [facility] Address [address] [facility] [place] [address] Care Team Providers Care Side Hemmer Name Role Phone Crystal Howell APRN Primary Care Provider [phone] Encounter Details Date Type Department Care Team [...] on filedocumented in this encounter Care Teams Side Hemmer Relationship Specialty Start Date End Date Crystal Howell APRN [address] [place] [address] PCP - General Family Medicine 02/27/17 documented as of this encounter
--- OUTSIDE RECORDS SUMMARY | 2024-06-15 18:28 | XMS_ITS | Encounter Summary ---
[place] [address] Care Team Providers Care Truck Driver Supervisor Name Role Phone Crystal Howell APRN Primary Care Provider [phone] Encounter Details Date Type Department Care Team (Late st Contact Info) Description 09/11/[address] [place] [address] Zeinab Adan Social History Tobacco Use Types [...] in this encounter Care Teams Truck Driver Supervisor Relationship Specialty Start Date End Date Crystal Howell APRN [address] [place] [address] PCP - General Family Medicine 02/27/17 documented as of this encounter
--- OUTSIDE RECORDS SUMMARY | 2024-06-15 18:28 | XMS_ITS | Encounter Summary ---
Author Organization Formerly [facility] Address [facility] [place] [address] Care Team Providers Care Market Research Consultant Name Role Phone Crystal Howell APRN Primary Care Provider +1 -[phone] Reason for Referral * Diagnostic Test (Routine) - Closed Specialty Diagnoses / Procedures Referred By Haseeb messina Referred To Contact Radiology Diagnoses Meningioma Procedures MRI Brain wwo Contrast (Generic) Mani Sung MD [facility] [place] [address] [place] [address] Referral ID Status Reason Start Date Expiration Date V isits Requested Visits Authorized [id number] Closed Specialty Service Requested 12/16/2020 06/18/2022 1 1 Encounter Details Date Type Department Care Team (Late st Contact Info) Description 12/16/2020 [place] [address] Lorenza Lawrence Social History Tobacco [...] have questions please contact the health career and transition teacher that requested your imaging first. ? Narrative 02/23/2022 11:16 AM EDT EXAMINATION: MRI BRAIN WWO CONTRAST (GENERIC) CLINICAL HISTORY: Brain/PROCESS IMPROVEMENT ANALYST neoplasm, surveillance s/p L pterinal craniotomy for [...] MRI BRAIN WWO CONTRAST (GENERIC) CLINICAL HISTORY: Brain/PROCESS IMPROVEMENT ANALYST neoplasm, surveillance s/p L pterinal craniotomy for [...] who have questions please contactthe health career and transition teacher that requested your imaging first. Mani Sung MD IMG MRI ORDERABLES documented in this encounter Visit Diagnoses Diagnosis Meningioma Benign neoplasm of cerebral meninges Meningioma Benign neoplasm of cerebral meninges documented in this encounter Care Teams Market Research Consultant Relationship Specialty Start Date End Date Crystal Howell APRN [address] [place] [address] PCP - General Family Medicine 02/27/17 documented as of this encounter
--- OUTSIDE RECORDS SUMMARY | 2024-06-15 18:28 | XMS_ITS | Encounter Summary ---
Author Organization Formerly [facility] [place] [address] Care Team Providers Care Copy Clerk Name Role Phone Crystal Howell APRN Primary Care Provider +1 -[phone] Encounter Details Date Type Department Care Team (Late st Contact Info) Description 12/15/2020 11:20 AM EDT Office [place] [address] Mani Sung MD Meningioma Social History Tobacco [...] meninges documented in this encounter Care Teams Copy Clerk Relationship Specialty Start Date End Date Crystal Howell, STRIP POLISHER [address] [place] [address] PCP - General Family Medicine 02/27/17 documented as of this encounter
--- OUTSIDE RECORDS SUMMARY | 2024-06-15 18:28 | XMS_ITS | Encounter Summary ---
Author Organization [facility] Address [address] [place] [address] Care Team Providers Care Network Announcer Name Role Phone Unavailable Primary Care Provider Unavailabl e Encounter Details Date Type Department Care Team (Late st Contact Info) Description 09/14/[address] [facility] [address] [place] [address] Radha Nunez, ROCK CLIMBING TEAM MEMBER Social History Tobacco Use Types Packs/Day Years [...] ? HANNAH DICKERSON ? Accession #: ? [id number] : ? 1950 (Age: 49) ??F ?Collect Date: ? 09/14/1999 Location: ?Receive Date: ? 09/14/1999 Provider: ?RADHA Mcwilliams UZIEL ROCK CLIMBING TEAM MEMBER Copy to: ?RADHA Oj UZIEL ROCK CLIMBING TEAM MEMBER ? Specimen/Source: ?Websphere Commerce Consultant ThinPrep Last Menstrual Period: ? GYNECOLOGIC ??CYTOPATHOLOGY ??REPORT Name: HANNAH DICKERSON ? [facility] : 1950 ?? 49Y F ?Client ID: [id number] SS#: [id number] ? Clinician: SHIRA NUNEZ NP ?? Location: [facility] ??Copy to: ?? Specimen: ?Websphere Commerce Consultant ThinPrep ? Source: Cervix/Endocervix ?Collected: 09/11/99 ? [...] Lim, CT(ASCP) ? Report Date: ?? 09/18/1999 [employer] retargeting Archived Tests - Final Diagnosis Text Field: Clinical History : ? Document reviewed and electronically signed by: ? Conversion ? Report Date: ??09/18/1999 00:00 End of Report JUSTINE CE[facility]ALLOS 09/14/1999 8:13 EDT 09/14/1999 8:14 EDT us Radha Nunez ROCK CLIMBING TEAM MEMBER PATHOLOGY ORDERABLES Final Re sult [facility] [address] [place] [address] documented in this encounter Visit Diagnoses Not on filedocumented in this encounter
--- OUTSIDE RECORDS SUMMARY | 2024-06-15 18:28 | XMS_ITS | Encounter Summary ---
Author Organization [facility] Address [facility] [place] [address] Care Team Providers Care Explosive Ordnance Handler Name Role Phone Crystal Howell APRN Primary Care Provider +1 -[phone] Reason for Visit * Diagnostic Test (Routine) - Closed Specialty Diagnoses / Procedures Referred By Haseeb messina Referred To Contact Radiology Diagnoses Meningioma Procedures MRI Brain wwo Contrast (Generic) Mani Sung MD [facility] [place] [address] [facility] [place] [address] Referral ID Status Reason Start Date Expiration Date V isits Requested Visits Authorized [id number] Closed Specialty Service Requested 12/16/2020 06/18/2022 1 1 Encounter Details Date Type Department Care Team (Latest Contact Info) Description 02/22/2022 10:45 AM EDT - 02/22/2022 11:59 PM EDT Hospital [place] [address] Mani Sung MD Discharge Disposition: [...] End Date fluticasone propionate (FLONASE) 50 mcg/actuation [place], Suspension SHAKE LIQUID AND USE 1 SPRAY [...] mLs documented in this encounter Care Teams Explosive Ordnance Handler Relationship Specialty Start Date End Date Crystal Howell APRN [address] [place] [address] PCP - General Family Medicine 02/27/17 documented as of this encounter
--- OUTSIDE RECORDS SUMMARY | 2024-06-15 18:28 | XMS_ITS | Clinical Summary ---
Author Organization Formerly [facility] Address [facility] [place] [address] Care Team Providers Care Tailman Name Role Phone Crystal Howell APRN Primary Care Provider +1 -[phone] Allergies Active Allergy Reactions Criticality Noted Date Comments Iodine And Iodide Containing Products Anaphylaxis High Nitrofurantoin Monohyd/M-Cryst 02/22/2022 Nitrofurantoin Other (See Comments) Stomach upset Penicillins Hives Medium Medications Medication Sig Dispensed Refills Start Date End Date Status fluticasone propionate (FLONASE) 50 mcg/actuation [place], Suspension SHAKE LIQUID AND USE 1 SPRAY [...] Vaccines (1 - Tdap) 1967 Pneumoccocal Vaccine: 50+ (1 of 1 - PCV) 1998 Zoster vaccine (1 of 2) 1998 Advance Directive 2003 Bone Density Scan 2013 RSV Vaccine (1 - 1-dose 75+ series) 2023 Covid-19 Vaccine (1 - 2023- season) 2024 Influenza (Flu) vaccine (1 o f 1 - Influenza standard series) 01/05/2024 Colonoscopy Discontinued 02/14/2015, 02/14/2015 Colorectal Cancer Screening Discontinued Sigmoidoscopy (10 year) with FIT yearly Discontinued 1 , 02/14/2015 CT Colonography Discontinued FIT DNA Discontinued FIT Discontinued Sigmoidoscopy Discontinued Medical Devices Implanted Type Area Batting Machine Operator Insulation Device Identifier Shelf Expiration Date Model / Serial / Lot Cover,Un3,Bu rhl,W/Tab,10 mm ([id number]) - [id number] Implanted:Qt y: 3 on 03/11/2017 by Yamil Gibson MD at [facility] IMPLANTS PaxVax - [id number] / 0 / 0 Screw,Un3,Ne w,Hd,Sd,1.5x 4mm ([id number]) - [id number] Implanted:Qt y: 17 on 03/11/2017 by Yamil Gibson MD at [facility] IMPLANTS RYAN CRANIOMAXXILLOFACIAL - [id number] / 0 / 0 Durepair,3x3 ([id number]) - [id number] Implanted:Qt y: 1 on 03/11/2017 by Mani Sung MD at [facility] IMPLANTS Left: Cranial Medtronic- Medical - [id number] 08/03/2018 [id number] / 0 / [id number] AricUn3,Re ct ([id number]) - [id number] Implanted:Qt y: 1 on 03/11/2017 by Mani Sung MD at [facility] IMPLANTS PaxVax - [id number] / 0 / 0 Procedures Procedure Name [...] RDR/RSLT * COLONOSCOPY (02/14/2015 12:45 PM EDT) [facility] Signature COLONOSCOPY [facility] Endoscopy Patient Name: Em Dickerson ? Procedure Date: 02/14/2015 12:45 PM ? Date of : 1950 ? Age: 64 ? Order #: [id number] ? Procedure: ? Colonoscopy Indications: ? Screening for colorectal malignant ? neoplasm Providers: ? Kirsten Singleton MD, Lisa Lopez, MARIANNA, ? Lisa Herrmann, Drying Machine Tender Referring : ?Gayatri Claros MD Medicines: ? [...] capacity to make decision: Yes Care Teams Tailman Relationship Specialty Start Date End Date Crystal Howell APRN [address] [place] [address] PCP - General Family Medicine 02/27/17
--- OUTSIDE RECORDS SUMMARY | 2024-06-15 18:28 | XMS_ITS | Encounter Summary ---
Author Organization [facility] Address [facility] [place] [address] Care Team Providers Care Flower Shop Manager Name Role Phone Crystal Howell APRN Primary Care Provider +1 -[phone] Encounter Details Date Type Department Care Team (Late st Contact Info) Description 01/30/2022 Telephone [place] [address] Brook Evans RN Social History Tobacco Use [...] December 2021. ~~~~~~~~~~~~~~~~~~~~~~~~~~~~~~~ Brook Evans RN P [facility] Neurosurgery Baxter Em called and would like to schedule the MRI and in person appointment with JPA please. Thank you Brook documented in this encounter Plan of Treatment Not on file documented as of this encounter Visit Diagnoses Not on filedocumented in this encounter Care Teams Flower Shop Manager Relationship Specialty Start Date End Date Crystal Howell APRN [address] [place] [address] PCP - General Family Medicine 02/27/17 documented as of this encounter
--- OUTSIDE RECORDS SUMMARY | 2024-06-15 18:28 | XMS_ITS | Encounter Summary ---
Author Organization [facility] Address One [facility] [place] [address] Care Team Providers Care Change Control Coordinator Name Role Phone Crystal Howell APRN Primary Care Provider +1 -[phone] Encounter Details Date Type Department Care Team [...] on filedocumented in this encounter Care Teams Change Control Coordinator Relationship Specialty Start Date End Date Crystal Howell APRN [address] [place] [address] PCP - General Family Medicine 02/27/17 documented as of this encounter
--- OUTSIDE RECORDS SUMMARY | 2024-06-15 18:28 | XMS_ITS | Encounter Summary ---
Author Organization Formerly [facility] Address [facility] [place] [address] Care Team Providers Care Licensing Coordinator Name Role Phone Crystal Howell APRN Primary Care Provider +1 -[phone] Encounter Details Date Type Department Care Team (Late st Contact Info) Description 09/17/2023 2:30 PM EDT Office Visit Dermatology at [facility] [address] [place] [address] Aubree Holland MD [facility] [place] [address] Skin cancer screening; History of melanoma in [...] HISTORY - 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 If yes, include details below Allergy to lidocaine, epinephrine, Dermabond, chlorhexidine, or adhesives: Bleeding disorder or blood thinners: Pacemaker, defibrillator, deep brain stimulator, cochlear implant: History of Present Illness: Em Dickreson is a 73 y.o. Patient returns to [...] or sooner as needed []Note routed to certified legal secretary specialist []Recall placed in scheduling system [x]Appointment scheduled at checkout Scribe attestation: Piper Caldwell [facility] has performed the documentation for this encounter in thepresence of and acting as a scribe for Aubree Holland MD. I performed the above scribed service and agree with the accuracy of the documentation in this encounter. Reviewed and signed by: Aubree Holland MD Dermatology [facility] documented in this encounter Plan [...] unspecified documented in this encounter Care Teams Licensing Coordinator Relationship Specialty Start Date End Date Crystal Howell APRN [address] [place] [address] PCP - General Family Medicine 02/27/17 documented as of this encounter
--- OUTSIDE RECORDS SUMMARY | 2024-06-15 18:28 | XMS_ITS | Encounter Summary ---
Author Organization [facility] Address [facility] [place] [address] Care Team Providers Care Bulk Pigment Reducer Name Role Phone DanteDyanCrystal H SAJAN Primary Care Provider +1 -[phone] Encounter Details Date Type Department Care Team (Late st Contact Info) Description 02/22/2022 [place] [address] Scott Medina MD [facility] [place] [address] Social History Tobacco Use Types Packs/Day Years [...] yr recall entered Scott Medina MD P [facility] Neurosurgery Director Of Epidemiology Nathan, ID: Em Dickerson, 71 y.o. female, Contact info: see epic Reason: F/u longer term follow up of L meningioma s/p resection Provider: Jackson Reyes (per Dr. Sung) Timeframe: 2 years Imaging: MRI brain w/wo (ordered) Thank you, Scott Medina MD, S [facility] Neurosurgery 02/22/2022 1:39 PM documented in this encounter Plan of Treatment Not on file documented as of this encounter Visit Diagnoses Not on filedocumented in this encounter Care Teams Bulk Pigment Reducer Relationship Specialty Start Date End Date Crystal Howell APRN [address] [place] [address] PCP - General Family Medicine 02/27/17 documented as of this encounter
--- OUTSIDE RECORDS SUMMARY | 2024-06-15 18:28 | XMS_ITS | Encounter Summary ---
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 Last visit at [facility] Derm: 05/22/2022 Last visit with this [...] exam, sooner as needed []Note routed to litigation secretary [x]Recall has been placed in scheduling system []Appointment scheduled at checkout Scribe attestation: Nancy Fields CMA who has performed the documentation for this encounter in the presence of and acting as a scribe for Aubree Holland MD. I performed the above scribed service and agree with the accuracy of the documentation in this encounter. Reviewed and signed by: Aubree Holland MD Dermatology [facility] documented in this encounter Plan of [...] dyschromia documented in this encounter Care Teams Assembly Member Relationship Specialty Start Date End Date Crystal Howell APRN [address] [place] [address] PCP - General Family Medicine 02/27/17 documented as of this encounter
--- OUTSIDE RECORDS SUMMARY | 2024-06-15 18:28 | XMS_ITS | Encounter Summary ---
Author Organization Formerly [facility] Address [facility] [place] [address] Care Team Providers Care Rendering Equipment Tender Name Role Phone Crystal Howell APRN Primary Care Provider +1 -[phone] Reason for Referral * Diagnostic Test (Routine) - Closed Specialty Diagnoses / Procedures Referred By Contac t Referred To Contact Radiology Diagnoses Meningioma Procedures MRI Brain wwo Contrast (Generic) Mani Sung MD [facility] [place] [address] [place] [address] Referral ID Status Reason Start Date Expiration Date V isits Requested Visits Authorized [id number] Closed Specialty Service Requested 12/16/2020 06/18/2022 1 1 Reason for Visit * Diagnostic Test (Routine) - Closed Specialty Diagnoses / Procedures Referred By Contac t Referred To Contact Radiology Diagnoses Meningioma Procedures MRI Brain wwo Contrast (Generic) Mani Sung MD [facility] [place] [address] [place] [address] Referral ID Status Reason Start Date Expiration Date V isits Requested Visits Authorized [id number] Closed Specialty Service Requested 12/16/2020 06/18/2022 1 1 Encounter Details Date Type Department Care Team (Latest Contact Info) Description 02/22/2022 9:57 AM EDT - 02/22/2022 10:44 AM EDT Hospital Encounter MRI at [place] [id number] Mani Sung MD Meningioma Discharge Disposition: Home [...] End Date fluticasone propionate (FLONASE) 50 mcg/actuation [place], Suspension SHAKE LIQUID AND USE 1 SPRAY IN EACH NOSTRIL TWICE DAILY 11/15/2020 [facility] ORAL Take 2 tablets by mouth nightly as needed. Actually take CBD Oil 09/17/2023 documented as of this encounter Progress Notes * González Harris LPN - 02/22/2022 10:00 AM EDT MRI PRE-SEDATION ASSESSMENT NOTE NAME: Em Dickerson AGE: 71 y.o. : 1950 [address] [facility] [address] Female [phone] (home) Telephone Information: Crystal Howell APRN No primary care provider on file. Allergies Allergen Reactions ??? Iodine And Iodide Containing Products Anaphylaxis ??? Penicillins Hives ??? Nitrofurantoin Other (See Comments) Stomach upset Date/Time of call: February 19, 2022/5:37 PM/ PREVIOUS MRI SCAN? Yes HEIGHT: WEIGHT: SCHEDULED SCAN: MRI BRAIN WWO CONTRAST (GENERIC) [SEX707] (60 mins, head first, supine) SUBJECTIVE: Claustrophobic CAN YOU LAY FLAT?: Yes AIRWAY/BREATHING ISSUES?: No DO YOU HAVE ANY INVOLUNTARY MOVEMENTS?: No DO YOU HAVE ANY PAIN?: No DO YOU TAKE PAIN MED ON A DAILY BASIS?: N/A ASSESSMENT: Pt is appropriate for po sedation PLAN: Valium 2 mg PO x 2 (tme) You must have a trencher driver present when you check in. This patient has been informed that they require a trencher driver to drive them home after this procedure. In the absence of a trencher driver, IR will not be able to sedate for your scan. Pt verbalized understanding of these instructions during the pre-procedure education via phone. Yes X [place] of trencher driver: Phone number: PRIOR SCAN DATE/S ?SEDATION [...] who have questions please contact the health home care manager that requested your imaging first. ? Electronically signed by: Patricia Posadas [facility] ([phone]), at 02/23/2022 11:16 AM Narrative 02/23/2022 11:16 AM EDT EXAMINATION: MRI BRAIN WWO CONTRAST (GENERIC) CLINICAL HISTORY: Brain/PRODUCTION DESIGNER neoplasm, surveillance s/p L pterinal craniotomy for [...] MRI BRAIN WWO CONTRAST (GENERIC) CLINICAL HISTORY: Brain/PRODUCTION DESIGNER neoplasm, surveillance s/p L pterinal craniotomy for [...] patients who have questions please contactthe health home care manager that requested your imaging first. Electronically signed by: Patricia Posadas [facility]([phone]), at 02/23/2022 11:16 AM Mani Sung MD [...] mg documented in this encounter Care Teams Rendering Equipment Tender Relationship Specialty Start Date End Date Crystal Howell APRN [address] [place] [address] PCP - General Family Medicine 02/27/17 documented as of this encounter
--- OUTSIDE RECORDS SUMMARY | 2024-06-15 18:28 | XMS_ITS | Encounter Summary ---
Author Organization [facility] [place] [address] Care Team Providers Care Regional Company Truck Driver Name Role Phone Crystal Howell APRN Primary Care Provider +1 -[phone] Reason for Visit * Diagnostic Test (Routine) - Closed Specialty Diagnoses / Procedures Referred By Haseeb messina Referred To Contact Radiology Diagnoses Paresthesias Procedures MRI Lumbar Spine wo Contrast (Generic) Mariam Hernandez MD [address] [place] [address] [place] [address] Referral ID Status Reason Start Date Expiration Date V isits Requested Visits Authorized [id number] Closed Specialty Service Requested 03/14/2023 09/11/2024 1 1 Encounter Details Date Type Department Care Team (Latest Contact Info) Description 03/15/2023 2:38 PM EST - 03/15/2023 11:59 PM EST Hospital [place] [address] Mariam Hernandez MD [address] [place] [address] Discharge Disposition: Home Social History [...] End Date fluticasone propionate (FLONASE) 50 mcg/actuation [place], Suspension SHAKE LIQUID AND USE 1 SPRAY [...] Resonan ce Impressions 03/17/2023 9:46 AM EST Dfmi-cw-jsigekgb degenerative changes as outlined above. Comment: The [...] have questions please contact the health career law clerk that requested your imaging first. ? Electronically signed by: Lonnie Mcclendon MD, [facility] ([phone]), at 03/17/2023 9:46 AM Narrative 03/17/2023 9:46 [...] significantcanal or foraminal stenosis. No herniation. IMPRESSION Vwyw-bw-mmfkitjp degenerative changes as outlined above. Comment: The following findings are so common in people without low backpain that while we report their presence, they must be interpreted with cautionand in context of the clinical situation (Reference- Tkvik Et Al, [id number]). Findings: (Prevalence in patients without low back [...] who have questions please contactthe health career law clerk that requested your imaging first. Mariam Hernandez MD IMG MRI ORDERABLES documented in this encounter Visit Diagnoses Not on filedocumented in this encounter Care Teams Regional Company Truck Driver Relationship Specialty Start Date End Date Crystal Howell APRN [address] [place] [address] PCP - General Family Medicine 02/27/17 documented as of this encounter
--- OUTSIDE RECORDS SUMMARY | 2024-06-15 18:28 | XMS_ITS | Encounter Summary ---
Author Organization [facility] [place] [address] Care Team Providers Care Machine Filler Shredder Name Role Phone Crystal Howell APRN Primary Care Provider +1 -[phone] Encounter Details Date Type Department Care Team (Late st Contact Info) Description 02/22/2022 1:20 PM EDT Office [place] [address] Mani Sung MD Meningioma Social History Tobacco [...] Medina MD - 02/22/2022 1:20 PM EDT [facility] Neuro[facility] Clinic Note Date & Time: [...] DIAGNOSTIC performed by Kirsten Singleton MD at [facility] ENDOSCOPY ??? PRO EXCIS SUPRATENT MENINGIOMA Left 03/11/2017 @CRANI, FOR TUMOR, SUPRATENTORIAL, MENINGIOMA (WRVU 37.14) performed by Mani Sung MD at [facility] ??? PRO MICROSURG TECHNIQUES, REQ OPER MICROSCOPE N/A 03/11/2017 MICROSCOPE USE (WRVU 3.46) performed by Mani Sung MD at [facility] ??? PRO STEREOTACTIC CPTR ASSTD PX CRANIAL, INTRADURAL Left 03/11/2017 STEREOTACTIC COMPUTER-ASSTD NAVIGATIONAL CRANIAL INTRADURAL (WRVU 3.75) performed by Mani Sung MD at [facility] Medications: Current Outpatient Medications on File Prior to Visit Medication Sig Dispense Refill ??? fluticasone propionate (FLONASE) 50 mcg/actuation [place], Suspension SHAKE LIQUID AND USE 1 SPRAY [...] meninges documented in this encounter Care Teams Machine Filler Shredder Relationship Specialty Start Date End Date Crystal Howell APRN [address] [place] [address] PCP - General Family Medicine 02/27/17 documented as of this encounter
--- OUTSIDE RECORDS SUMMARY | 2024-06-15 18:28 | XMS_ITS | Encounter Summary ---
Author Organization [facility] Address One [facility] [place] [address] Care Team Providers Care Well Drill Operator Name Role Phone Crystal Howell APRN Primary Care Provider +1 -[phone] Encounter Details Date Type Department Care Team [...] on filedocumented in this encounter Care Teams Well Drill Operator Relationship Specialty Start Date End Date Crystal Howell APRN [address] [place] [address] PCP - General Family Medicine 02/27/17 documented as of this encounter
--- OUTSIDE RECORDS SUMMARY | 2024-06-15 18:28 | XMS_ITS | Encounter Summary ---
Author Organization [facility] Address [facility] [place] [address] Care Team Providers Care Damper Fitter Name Role Phone Crystal Howell APRN Primary Care Provider +1 -[phone] Reason for Visit * Diagnostic Test (Routine) - Closed Specialty Diagnoses / Procedures Referred By Haseeb messina Referred To Contact Radiology Diagnoses MGM (meningioma) Procedures MRI Brain wwo Contrast (Generic) Mani Sung MD [facility] [place] [place] [address] [facility] [place] [address] Referral ID Status Reason Start Date Expiration Date V isits Requested Visits Authorized [id number] Closed Specialty Service Requested 11/22/2020 05/25/2022 1 1 Encounter Details Date Type Department Care Team (Latest Contact Info) Description 12/15/2020 8:13 AM EDT - 12/15/2020 11:59 PM EDT Hospital Encounter [place] [address] Mani Sung MD Discharge Disposition: [...] End Date fluticasone propionate (FLONASE) 50 mcg/actuation [facility], Suspension SHAKE LIQUID AND USE 1 SPRAY [...] mLs documented in this encounter Care Teams Damper Fitter Relationship Specialty Start Date End Date Crystal Howell APRN [address] [place] [address] PCP - General Family Medicine 02/27/17 documented as of this encounter
--- OUTSIDE RECORDS SUMMARY | 2024-06-15 18:29 | XMS_ITS | Encounter Summary ---
Author Organization [facility] Address [facility] [place] [address] Care Team Providers Care Construction Laborer Name Role Phone Crystal Howell APRN Primary Care Provider +1 -[phone] Reason for Referral * Diagnostic Test (Routine) - Closed Specialty Diagnoses / Procedures Referred By Contac t Referred To Contact Radiology Diagnoses Meningioma Procedures MRI Brain wwo Contrast (Generic) Mani Sung MD [facility] [address] [place], [place] [id number] [place] [phone] Referral ID Status Reason Start Date Expiration Date V isits Requested Visits Authorized [id number] Closed Specialty Service Requested 05/12/2019 11/09/2020 1 1 Reason for Visit * Diagnostic Test (Routine) - Closed Specialty Diagnoses / Procedures Referred By Contac t Referred To Contact Radiology Diagnoses Meningioma Procedures MRI Brain wwo Contrast (Generic) Mani Sung MD [facility] [address] [place], [place] [id number] [place] [phone] Referral ID Status Reason Start Date Expiration Date V isits Requested Visits Authorized [id number] Closed Specialty Service Requested 05/12/2019 11/09/2020 1 1 Encounter Details Date Type Department Care Team (Latest Contact Info) Description 06/11/2019 12:07 PM EST - 06/11/2019 12:08 PM EST [place] [address] Mani Sung MD Meningioma Discharge Disposition: Home [...] Dickerson AGE: 69 y.o. : 1950 [address] [facility] [address] Female [phone] (home) Telephone Information: Crystal Howell APRN No primary care provider on file. Allergies Allergen Reactions ??? Iodine And Iodide Containing Products Anaphylaxis ??? Penicillins Hives ??? Nitrofurantoin Other (See Comments) Stomach upset Date/Time of call: June 08, 2019/10:03 AM/ PREVIOUS MRI SCAN? Yes SCHEDULED SCAN: MRI BRAIN WWO CONTRAST (GENERIC) [[id number]], 60 minutes, scanner 6 SUBJECTIVE: Claustrophobia CAN YOU LAY FLAT? yes AIRWAY ISSUES? no DO YOU HAVE ANY INVOLUNTARY MOVEMENTS? none DO YOU HAVE ANY PAIN? no DO YOU TAKE PAIN MED ON A DAILY BASIS? n/a ASSESSMENT: Appropriate for po sedation PLAN: Valium 2-4 mg po ( AA) You must have a freight delivery driver present when you check in. This patient has been informed that they require a freight delivery driver to drive them home after this procedure. In the absence of a freight delivery driver, IR will not be able to sedate for your scan. Pt verbalized understanding of these instructions during the pre-procedure education via phone. Yes Name of freight delivery driver: Willam Allison Phone number PRIOR SCAN [...] mg documented in this encounter Care Teams Construction Laborer Relationship Specialty Start Date End Date Crystal Howell APRN [address] [place] [address] PCP - General Family Medicine 02/27/17 documented as of this encounter
--- OUTSIDE RECORDS SUMMARY | 2024-06-15 18:29 | XMS_ITS | Encounter Summary ---
Author Organization [facility] [place] [address] Care Team Providers Care Motion Picture Set Grip Name Role Phone Crystal Howell APRN Primary Care Provider +1 -[phone] Reason for Visit * Auth/Cert Specialty Diagnoses [...] Expiration Date Visits Re quested Visits Authorized [id number] 1 1 Encounter Details Date Type Department Care Team (Late st Contact Info) Description 03/11/2017 1:07 PM EST Anesthesia Event [facility] [place] [address] Sharan Vega MD Rubenberg, Lisa A, CRNA [facility] [place] [address] Anesthesia Record Procedure Summary Procedure Name Responsible [...] 03/11/17; 1337; other (see comments) (right saphenous); [id number] catheter system; 18 gauge; 0; Removed by [...] Pederson MD - 03/14/2017 3:06 PM EST [facility] Department of Anesthesiology Post-procedure Note Patient: Linda Dickerson Procedure Summary Date Anesthesia Start Anesthesia Stop Room / Location 03/11/17 8147 [id number] [facility] 2 / [facility] Procedure Diagnosis Surgeon Responsible Provider @CRANI, FOR TUMOR, SUPRATENTORIAL, MENINGIOMA (WRVU 37.14) (Left Head); STEREOTACTIC COMPUTER-ASSTDNAVIGATIONAL CRANIAL INTRADURAL (WRVU 3.75) (Left Head); MODIFIER STEALTH (N/A Head); MICROSCOPE USE (WRVU 3.46) (N/A Head) (MENINGIOMA) Mani Sung MD Evans, Rebecca E, MD All Anesthesia Providers: Anesthesiologist: Tejas Pederson MD; Sharan Vega MD SUPERVISOR PLEATING: Marques Cook CRNA Most Recent Vitals: 03/13/17 0800 BP: 153/78 Pulse: 80 Resp: 18 Temp: 36.5 ??C (97.7 ??F) SpO2: 100% Pain ANES POST EVAL * Anesthesia Postprocedure Evaluation - Tejas Pederson MD - 03/11/2017 9:14 PM EST [facility] Department of Anesthesiology Post-procedure Note Patient: Linda Dickerson Procedure Summary Date Anesthesia Start Anesthesia Stop Room / Location 03/11/17 4106 [id number] [facility] Procedure Diagnosis Surgeon Responsible Provider @CRANI, FOR TUMOR, SUPRATENTORIAL, MENINGIOMA (WRVU 37.14) (Left Head); STEREOTACTIC COMPUTER-ASSTDNAVIGATIONAL CRANIAL INTRADURAL (WRVU 3.75) (Left Head); MODIFIER STEALTH (N/A Head); MICROSCOPE USE (WRVU 3.46) (N/A Head) (MENINGIOMA) Mani Sung MD Evans, Rebecca E, MD All Anesthesia Providers: Anesthesiologist: Tejas Pederson MD; Sharan Vgea MD SUPERVISOR PLEATING: Marques Cook CRNA Most Recent Vitals: 03/11/17 [...] DIAGNOSTIC N/A 02/14/2015 COLONOSCOPY, DIAGNOSTIC performed by Kirsetn Singleton MD at [facility] ENDOSCOPY Social History Substance Use Topics [...] night, and this was evaluated by her cut file clerk who felt it was related to age-related [...] risks discussed with patient. Plan discussed with SUPERVISOR PLEATING. PAT Staff Note documented in this encounter [...] g documented in this encounter Care Teams Motion Picture Set Grip Relationship Specialty Start Date End Date Crystal Howell APRN [address] [place] [address] PCP - General Family Medicine 02/27/17 documented as of this encounter
--- OUTSIDE RECORDS SUMMARY | 2024-06-15 18:29 | XMS_ITS | Encounter Summary ---
Author Organization [facility] [place] [address] Care Team Providers Care Rug Clipper Name Role Phone Crystal Howell APRN Primary Care Provider +1 -[phone] Reason for Visit * Reason Comments Follow-up s/p meningioma with MRI brain prior Encounter Details Date Type Department Care Team (Late st Contact Info) Description 04/10/2018 11:00 AM EST [place] [phone] Mani Sung MD Meningioma Social History Tobacco [...] meninges documented in this encounter Care Teams Rug Clipper Relationship Specialty Start Date End Date Crystal Howell APRN [address] [place] [address] PCP - General Family Medicine 02/27/17 documented as of this encounter
--- OUTSIDE RECORDS SUMMARY | 2024-06-15 18:29 | XMS_ITS | Encounter Summary ---
Author Organization [facility] Address [facility] [place] [address] Care Team Providers Care Christmas Tree Farmer Name Role Phone Crystal Howell APRN Primary Care Provider +1 -[phone] Reason for Referral * Diagnostic Test (Routine) - Closed Specialty Diagnoses / Procedures Referred By Contac t Referred To Contact Radiology Diagnoses Cerebral meningioma Procedures MRI Brain wwo Contrast (Generic) [facility] Neurosurgery [address] [place] [phone] [place] [address] Referral ID Status Reason Start Date Expiration Date V isits Requested Visits Authorized [id number] Closed Specialty Service Requested 04/23/2017 04/23/2018 2 2 Reason for Visit * Diagnostic Test (Routine) - Closed Specialty Diagnoses / Procedures Referred By Contac t Referred To Contact Radiology Diagnoses Cerebral meningioma Procedures MRI Brain wwo Contrast (Generic) [facility] Neurosurgery [address] [place] [id number] [place] [address] Referral ID Status Reason Start Date Expiration Date V isits Requested Visits Authorized [id number] Closed Specialty Service Requested 04/23/2017 04/23/2018 2 2 Encounter Details Date Type Department Care Team (Latest Contact Info) Description 07/11/2017 7:56 AM EST [place] [address] Mani Sung MD Cerebral meningioma Discharge Disposition: [...] Dickerson AGE: 67 y.o. : 1950 [address] [facility] [address] Female [phone] (home) Telephone Information: Crystal Howell APRN No [...] ( XXX ) You must have a class a truck driver present when you check in. This patient has been informed that they require a class a truck driver to drive them home after this procedure. In the absence of a class a truck driver, IR will not be able to sedate for your scan. Pt verbalized understanding of these instructions during the pre-procedure education via phone. Yes [place] of class a truck driver: Rob Junior- partner Phone number PRIOR [...] adjacent vein or residual neoplasm. Continuedfollow-up recommended. Main Sung MD IMG MRI ORDERABLES documented in [...] mg documented in this encounter Care Teams Christmas Tree Farmer Relationship Specialty Start Date End Date Crystal Howell APRN [address] [place] [address] PCP - General Family Medicine 02/27/17 documented as of this encounter
--- OUTSIDE RECORDS SUMMARY | 2024-06-15 18:29 | XMS_ITS | Encounter Summary ---
Author Organization [facility] [place] [address] Care Team Providers Care City Editor Name Role Phone Crystal Howell APRN Primary Care Provider +1 -[phone] Encounter Details Date Type Department Care Team (Late st Contact Info) Description 06/10/2019 Telephone [place] [phone] Shari Brandon Social History Tobacco Use Types [...] caller: any Best number to reach caller: [phone] (M) Reason for call: Pt calling to [...] on filedocumented in this encounter Care Teams City Editor Relationship Specialty Start Date End Date Crystal Howell APRN [address] [place] [address] PCP - General Family Medicine 02/27/17 documented as of this encounter
--- OUTSIDE RECORDS SUMMARY | 2024-06-15 18:29 | XMS_ITS | Encounter Summary ---
Author Organization [facility] [place] [address] Care Team Providers Care Survey Associate Name Role Phone Crystal Howell APRN Primary Care Provider +1 -[phone] Encounter Details Date Type Department Care Team (Late st Contact Info) Description 09/06/2017 Tele[place] [address] Merary Sim Social History Tobacco Use Types [...] on filedocumented in this encounter Care Teams Survey Associate Relationship Specialty Start Date End Date Crystal Howell APRN [address] [place] [address] PCP - General Family Medicine 02/27/17 documented as of this encounter
--- OUTSIDE RECORDS SUMMARY | 2024-06-15 18:29 | XMS_ITS | Encounter Summary ---
Author Organization [facility] [place] [address] Care Team Providers Care Piano Mover Name Role Phone Crystal Howell APRN Primary Care Provider +1 -[phone] Reason for Visit * Reason Comments Follow-up s/p left pterional c raniotomy for meningioma resection with MRI prior Encounter Details Date Type Department Care Team (Late st Contact Info) Description 10/15/2017 1:15 PM EDT Office [place] [phone] Mani Sung MD Meningioma Social History Tobacco [...] meninges documented in this encounter Care Teams Piano Mover Relationship Specialty Start Date End Date Crystal Howell APRN [address] [place] [address] PCP - General Family Medicine 02/27/17 documented as of this encounter
--- OUTSIDE RECORDS SUMMARY | 2024-06-15 18:29 | XMS_ITS | Encounter Summary ---
Author Organization [facility] Address [facility] [place] [address] Care Team Providers Care Chemical Laboratory Scientist Name Role Phone Crystal Howell APRN Primary Care Provider +1 -[phone] Reason for Visit * Diagnostic Test (Routine) - Closed Specialty Diagnoses / Procedures Referred By Haseeb messina Referred To Contact Radiology Diagnoses Meningioma Procedures MRI Brain wwo Contrast (Generic) [facility] [address] [place] [address] [facility] [place] [address] Referral ID Status Reason Start Date Expiration Date V isits Requested Visits Authorized [id number] Closed Specialty Service Requested 10/23/2017 10/23/2018 2 2 Encounter Details Date Type Department Care Team (Latest Contact Info) Description 04/10/2018 7:58 AM EST - 04/10/2018 11:59 PM EST Hospital [place] [address] Mani Sung MD Discharge Disposition: [...] mLs documented in this encounter Care Teams Chemical Laboratory Scientist Relationship Specialty Start Date End Date Crystal Howell APRN [address] [place] [address] PCP - General Family Medicine 02/27/17 documented as of this encounter
--- OUTSIDE RECORDS SUMMARY | 2024-06-15 18:29 | XMS_ITS | Encounter Summary ---
Author Organization [facility] Address [facility] [place] [address] Care Team Providers Care Development Mechanic Name Role Phone Crystal Howell APRN Primary Care Provider +1 -[phone] Reason for Visit * Diagnostic Test (Routine) - Closed Specialty Diagnoses / Procedures Referred By Haseeb messina Referred To Contact Radiology Diagnoses Meningioma Procedures MRI Brain wwo Contrast (Generic) Mani Sung MD [facility] [place] [address] [facility] [place] [address] Referral ID Status Reason Start Date Expiration Date V isits Requested Visits Authorized [id number] Closed Specialty Service Requested 05/12/2019 11/09/2020 1 1 Encounter Details Date Type Department Care Team (Latest Contact Info) Description 06/11/2019 12:09 PM EST - 06/11/2019 11:59 PM [facility] Hospital [place] [address] Mani Sung MD Discharge [...] mLs documented in this encounter Care Teams Development Mechanic Relationship Specialty Start Date End Date Crystal Howell APRN [address] [place] [address] PCP - General Family Medicine 02/27/17 documented as of this encounter
--- OUTSIDE RECORDS SUMMARY | 2024-06-15 18:29 | XMS_ITS | Encounter Summary ---
Author Organization [facility] [place] [address] Care Team Providers Care Art Coordinator Name Role Phone Crystal Howell APRN Primary Care Provider +1 -[phone] Encounter Details Date Type Department Care Team (Late st Contact Info) Description 07/11/2017 [place] [address] Merary Sim Social History Tobacco Use Types [...] not included. Mani Sung MD ?? Sent: [facility] July 11, 2017 11:39 AM ? To: Nina Grayson [employer] Market Consultant ?? Tuan Em Eli ( ) : 1950 ? Follow-up and Disposition ? Return in about 3 months (around 10/11/2017) for with MRI +/- contrast to eval for tumor recurrence. documented in this encounter Plan of Treatment Not on file documented as of this encounter Visit Diagnoses Not on filedocumented in this encounter Care Teams Art Coordinator Relationship Specialty Start Date End Date Crystal Howell, WOOD GLUER [address] [place] [address] PCP - General Family Medicine 02/27/17 documented as of this encounter
--- OUTSIDE RECORDS SUMMARY | 2024-06-15 18:29 | XMS_ITS | Encounter Summary ---
Author Organization [facility] Address [facility] [place] [address] Care Team Providers Care Multi Needle Machine Operator Name Role Phone Crystal Howell APRN Primary Care Provider +1 -[phone] Reason for Visit * Reason Comments Follow-up Encounter Details Date Type Department Care Team (Late st Contact Info) Description 04/11/2017 9:30 AM EST [place] [address] Mani Sung MD Meningioma Social History Tobacco [...] meninges documented in this encounter Care Teams Multi Needle Machine Operator Relationship Specialty Start Date End Date Crystal Howell APRN [address] [place] [address] PCP - General Family Medicine 02/27/17 documented as of this encounter
--- OUTSIDE RECORDS SUMMARY | 2024-06-15 18:29 | XMS_ITS | Encounter Summary ---
[place] [address] Care Team Providers Care Knifer Up Name Role Phone Crystal Howell APRN Primary Care Provider +1 -[phone] Encounter Details Date Type Department Care Team (Late st Contact Info) Description 04/10/2018 [place] [phone] Melita Oviedo Social History Tobacco Use Types [...] on filedocumented in this encounter Care Teams Knifer Up Relationship Specialty Start Date End Date Crystal Howell APRN [address] [place] [address] PCP - General Family Medicine 02/27/17 documented as of this encounter
--- OUTSIDE RECORDS SUMMARY | 2024-06-15 18:29 | XMS_ITS | Encounter Summary ---
Author Organization [facility] Address [facility] [place] [address] Care Team Providers Care Jewelry Model Maker Name Role Phone Crystal Howell APRN Primary Care Provider +1 -[phone] Reason for Visit * Reason Comments Follow-up Encounter Details Date Type Department Care Team (Late st Contact Info) Description 06/11/2019 3:40 PM EST Office [place] [phone] Mani Sung MD Meningioma Social History Tobacco [...] meninges documented in this encounter Care Teams Jewelry Model Maker Relationship Specialty Start Date End Date Crystal Howell APRN [address] [place] [address] PCP - General Family Medicine 02/27/17 documented as of this encounter
--- OUTSIDE RECORDS SUMMARY | 2024-06-15 18:29 | XMS_ITS | Encounter Summary ---
Author Organization [facility] Address [facility] [place] [address] Care Team Providers Care Practice Architect Name Role Phone Eunice Howell APRN Primary Care Provider +1 -[phone] Reason for Visit * Reason Comments Skin Check Encounter Details Date Type Department Care Team (Late st Contact Info) Description 01/10/2018 9:00 AM EDT Office Visit Dermatology at [facility] [address] [place] [address] Eunice Regalado MD Seborrheic keratosis, [...] original note were not included. DERMATOLOGY AT [facility] Dermatology At [facility] [address] [address] FOLLOW-UP Date of service: 01/10/2018 Em Dickerson : 1950 Provider: Eunice Regalado MD Preferred name: Em SKIN HISTORY: 07/2016: Left cheek, Melanoma, MIS - s/p Mohs at [facility] 08/2016 DIAGNOSIS Skin, left cheek, punch ?? [...] Left cheek.. 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 Eunice Regalado MD Section of Dermatology [facility] documented in this encounter Plan of Treatment [...] skin documented in this encounter Care Teams Practice Architect Relationship Specialty Start Date End Date Eunice Howell, FLOUR MIXER [address] [place] [address] PCP - General Family Medicine 02/27/17 documented as of this encounter
--- OUTSIDE RECORDS SUMMARY | 2024-06-15 18:29 | XMS_ITS | Encounter Summary ---
Author Organization [facility] Address [facility] [place] [address] Care Team Providers Care Corporate Aircraft Mechanic Name Role Phone Crystal Howell APRN Primary Care Provider +1 -[phone] Reason for Referral * Diagnostic Test (Routine) - Closed Specialty Diagnoses / Procedures Referred By Haseeb messina Referred To Contact Radiology Diagnoses Meningioma Procedures MRI Brain wwo Contrast (Generic) [facility] [address] [place] [address] [facility] [place] [address] Referral ID Status Reason Start Date Expiration Date V isits Requested Visits Authorized [id number] Closed Specialty Service Requested 08/13/2017 08/13/2018 1 1 Encounter Details Date Type Department Care Team (Late st Contact Info) Description 08/13/2017 Orders [place] [address] Brook Evans RN Meningioma Social [...] meninges documented in this encounter Care Teams Corporate Aircraft Mechanic Relationship Specialty Start Date End Date Crystal Howell APRN [address] [place] [address] PCP - General Family Medicine 02/27/17 documented as of this encounter
--- OUTSIDE RECORDS SUMMARY | 2024-06-15 18:29 | XMS_ITS | Encounter Summary ---
Author Organization [facility] [place] [address] Care Team Providers Care Log Pond Worker Name Role Phone Crystal Howell APRN Primary Care Provider +1 -[phone] Encounter Details Date Type Department Care Team (Late st Contact Info) Description 10/18/2017 [place] [address] Shari Brandon Social History Tobacco Use Types [...] ??6:10 PM ? To: Nina Grayson [facility] Manager ? Message ? F/u 6 months with [...] on filedocumented in this encounter Care Teams Log Pond Worker Relationship Specialty Start Date End Date Crystal Howell APRN [address] [place] [address] PCP - General Family Medicine 02/27/17 documented as of this encounter
--- OUTSIDE RECORDS SUMMARY | 2024-06-15 18:29 | XMS_ITS | Encounter Summary ---
Author Organization [facility] [place] [address] Care Team Providers Care Directory Compiler Name Role Phone Crystal Howell APRN Primary Care Provider [phone] [phone] Encounter Details Date Type Department Care Team (Late st Contact Info) Description 04/23/2017 [place] [id number] Zeinab Braga Social History Tobacco Use Types [...] not included. Mani Sung MD ?? Sent: [facility] April 11, 2017 10:09 AM ? To: [facility] [place] ?? Em Dickerson ( ) : 1950 ? Follow-up and Disposition ? Return in about 3 months (around 07/10/2017) for eval for tumor recurrence WITH MRI brain +/- contrast. documented in this encounter Plan of Treatment Not on file documented as of this encounter Visit Diagnoses Not on filedocumented in this encounter Care Teams Directory Compiler Relationship Specialty Start Date End Date Crystal Howell APRN [address] [place] [address] PCP - General Family Medicine 02/27/17 documented as of this encounter
--- OUTSIDE RECORDS SUMMARY | 2024-06-15 18:29 | XMS_ITS | Encounter Summary ---
Author Organization [facility] Address [facility] [place] [address] Care Team Providers Care Nozzleman Name Role Phone Crystal Howell APRN Primary Care Provider [phone] [phone] Reason for Visit * Diagnostic Test (Routine) - Closed Specialty Diagnoses / Procedures Referred By Haseeb messina Referred To Contact Radiology Diagnoses Cerebral meningioma Procedures MRI Brain wwo Contrast (Generic) [facility] [address] [place] [address] [facility] [place] [address] Referral ID Status Reason Start Date Expiration Date V isits Requested Visits Authorized [id number] Closed Specialty Service Requested 04/23/2017 04/23/2018 2 2 Encounter Details Date Type Department Care Team (Latest Contact Info) Description 07/11/2017 7:57 AM EST - 07/11/2017 11:59 PM EST Hospital Encounter [place] [address] Mani Sung MD Discharge Disposition: [...] mLs documented in this encounter Care Teams Nozzleman Relationship Specialty Start Date End Date Crystal Howell APRN [address] [place] [address] PCP - General Family Medicine 02/27/17 documented as of this encounter
--- OUTSIDE RECORDS SUMMARY | 2024-06-15 18:29 | XMS_ITS | Encounter Summary ---
[place] [address] Care Team Providers Care Devops Name Role Phone Crystal Howell APRN Primary Care Provider [phone] [phone] Encounter Details Date Type Department Care Team (Late st Contact Info) Description 04/24/2017 Orders Only [place] [address] Riya Call Social History Tobacco Use Types [...] on filedocumented in this encounter Care Teams Devops Relationship Specialty Start Date End Date Crystal Howell APRN [address] [place] [address] PCP - General Family Medicine 02/27/17 documented as of this encounter
--- OUTSIDE RECORDS SUMMARY | 2024-06-15 18:29 | XMS_ITS | Encounter Summary ---
Author Organization [facility] Address [facility] [place] [address] Care Team Providers Care Formula Maker Name Role Phone Crystal Howell APRN Primary Care Provider [phone] -[phone] Reason for Referral * Diagnostic Test (Routine) - Closed Specialty Diagnoses / Procedures Referred By Contac t Referred To Contact Radiology Diagnoses Meningioma Procedures MRI Brain wwo Contrast (Generic) [facility] [address] [place] [address] [place] [address] Referral ID Status Reason Start Date Expiration Date V isits Requested Visits Authorized [id number] Closed Specialty Service Requested 10/23/2017 10/23/2018 2 2 Reason for Visit * Diagnostic Test (Routine) - Closed Specialty Diagnoses / Procedures Referred By Contac t Referred To Contact Radiology Diagnoses Meningioma Procedures MRI Brain wwo Contrast (Generic) [facility] [address] [place] [address] [place] [address] Referral ID Status Reason Start Date Expiration Date V isits Requested Visits Authorized [id number] Closed Specialty Service Requested 10/23/2017 10/23/2018 2 2 Encounter Details Date Type Department Care Team (Latest Contact Info) Description 04/10/2018 7:55 AM EST - 04/10/2018 7:57 AM EST Hospital [place] [id number] Mani Sung MD Meningioma Discharge Disposition: Home [...] Dickerson AGE: 67 y.o. : 1950 [address] [facility] [address] Female [phone] (home) Telephone Information: Crystal Howell APRN No primary care provider on file. Allergies Allergen Reactions ??? Iodine And Iodide Containing Products Anaphylaxis ??? Penicillins Hives ??? Nitrofurantoin Other (See Comments) Stomach upset Date/Time of call: April 07, 2018/8:41 AM/ PREVIOUS MRI SCAN? Yes HEIGHT: 5'7 WEIGHT: 157 SCHEDULED SCAN: MRI BRAIN WWO CONTRAST [[id number]] SUBJECTIVE: Claustrophobic CAN YOU LAY FLAT? No AIRWAY ISSUES? No DO YOU HAVE ANY INVOLUNTARY MOVEMENTS? No DO YOU HAVE ANY PAIN? No DO YOU TAKE PAIN MED ON A DAILY BASIS? No ASSESSMENT: Appropriate for PO sedation PLAN: Valium 5-10 mg PO ( mp ) You must have a bulk driver present when you check in. This patient has been informed that they require a bulk driver to drive them home after this procedure. In the absence of a bulk driver, IR will not be able to sedate for your scan. Pt verbalized understanding of these instructions during the pre-procedure education via phone. Yes [place] of bulk driver: Willam Phone number PRIOR SCAN DATE/S [...] 3:01 PM 3:01 PM Mani Sung MD [facility] MRI ORDERABLES documented in this encounter Visit Diagnoses Diagnosis Meningioma Benign neoplasm of cerebral meninges documented in this encounter Administered Medications Inactive Administered Medications - up to 3 most recent administrations Medication Order MAR Action Action Date Dose Rate Site diazePAM (VALIUM) tablet 5 mg 5 mg, Oral, EVERY 30 MIN PRN, 2 doses, Starting on [place] 04/10/18 at 0729, Until 04/11/18 at 0438, Anxiety, Angio/IR (Day of Procedure), Routine Given 04/10/2018 8:09 AM EST 5 mg documented in this encounter Care Teams Formula Maker Relationship Specialty Start Date End Date Crystal Howell APRN [address] [place] [address] PCP - General Family Medicine 02/27/17 documented as of this encounter
--- OUTSIDE RECORDS SUMMARY | 2024-06-15 18:29 | XMS_ITS | Encounter Summary ---
Author Organization [facility] Address [facility] [place] [address] Care Team Providers Care Mechanic And Welder Name Role Phone Crystal Howell APRN Primary Care Provider [phone] [phone] Encounter Details Date Type Department Care Team (Late st Contact Info) Description 10/28/[address] [facility] [address] [place] [id number] Crystal Yo MD Social History Tobacco Use [...] on filedocumented in this encounter Care Teams Mechanic And Welder Relationship Specialty Start Date End Date Crystal Howell APRN [address] [place] [address] PCP - General Family Medicine 02/27/17 documented as of this encounter
--- OUTSIDE RECORDS SUMMARY | 2024-06-15 18:29 | XMS_ITS | Encounter Summary ---
Author Organization [facility] Address [facility] [place] [address] Care Team Providers Care Manager Military Name Role Phone Crystal Howell APRN Primary Care Provider [phone] [phone] Reason for Referral * Diagnostic Test (Routine) - Closed Specialty Diagnoses / Procedures Referred By Haseeb messina Referred To Contact Radiology Diagnoses Cerebral meningioma Procedures MRI Brain wwo Contrast (Generic) [facility] [address] [place] [address] [facility] [place] [address] Referral ID Status Reason Start Date Expiration Date V isits Requested Visits Authorized [id number] Closed Specialty Service Requested 04/23/2017 04/23/2018 2 2 Encounter Details Date Type Department Care Team (Late st Contact Info) Description 04/23/2017 [place] [address] Brook Evans RN Cerebral meningioma [...] meninges documented in this encounter Care Teams Manager Military Relationship Specialty Start Date End Date Crystal Howell APRN [address] [place] [address] PCP - General Family Medicine 02/27/17 documented as of this encounter
--- OUTSIDE RECORDS SUMMARY | 2024-06-15 18:29 | XMS_ITS | Encounter Summary ---
Author Organization [facility] [place] [address] Care Team Providers Care Bandoleer Straightener Stamper Name Role Phone Crystal Howell APRN Primary Care Provider [phone] Reason for Visit * Auth/Cert Specialty Diagnoses [...] Expiration Date Visits Re quested Visits Authorized [id number] 1 1 Encounter Details Date Type Department Care Team (Late st Contact Info) Description 03/11/2017 11:58 AM EST - 03/11/2017 4:26 PM EST [facility] [place] [id number] Mani Sung MD @CRANI, FOR TUMOR, SUPRATENTORIAL, [...] anticoagulant, and non-steroidal anti-inflammatory (NSAIDs) drugs. Common mzae-grd-byjjhxa medications which should be avoided include Aspirin, [...] to pass. These medications can be obtained iakk-zwa-ohmviuk and their use is recommended on an [...] weeks. Please call the Neurosurgery Office at [phone] if you do not receive a scheduled [...] anticoagulant, and non-steroidal anti-inflammatory (NSAIDs) drugs. Common anfo-mwt-pqprnnq medications which should be avoided include Aspirin, [...] to pass. These medications can be obtained cgbv-utm-jphcdpm and their use is recommended on an [...] weeks. Please call the Neurosurgery Office at [phone] if you do not receive a scheduled [...] interim. TAHIR Duron * Ashtyn Nikole Mayur, SOFT WORK WRAPPER LAYER AND EXAMINER - 03/13/2017 4:11 AM EST Neurosurgery - [...] PM EST Linda Dickerson arrived to [address] @ 0945 from the ICU. Oriented to room, call cancino within reach, educated on importance of using prior to getting OOB, AVSS, , incision WDL, belongings updated in eDH, bed locked in low position, purposeful hourly rounding, bed/chair alarm on. Report from MARIANNA Prieto. * Shari Gupta - 03/12/2017 7:23 AM EST NEUROSURGERY PROGRESS NOTE Linda Dickerson [id number] ID: [id number] y.o. woman s/p pterional [...] until good PO. Monitor lytes. PLEASE PAGE [phone] WITH QUESTIONS NEUROLOGIC: brain compression GI: malnutrition [...] DIAGNOSTIC performed by Kirsten Singleton MD at [facility] ENDOSCOPY Prior To Admission Medications: Prescriptions [...] estate. enjoys playing tennis and going to [place] weekly. Assessment: Pt has been seen by [...] Anticipated Discharge Disposition: home with assist Pager: [phone] MONROE PHAM OT 03/13/2017 Occupational Therapy Rehabilitation [...] Mobility Guidelines: Independent Discharge Recommendations: Home Pager: [phone] Snehal Condon DPT, NCS 03/13/2017 Physical Therapy [...] that they may express their concerns. This fiction and nonfiction writer prose did assure them that their concerns were [...] Specific Information: none Health/Prescription Coverage: Primary Insurance: [employer] MANAGED MEDICARE Secondary Insurance: N/A Prescription Coverage: as above. Preferred Pharmacy: [facility] Other: n/a Primary Care Provider: Crystal Howell, SOFT WORK WRAPPER LAYER AND EXAMINER [phone] Patient/Caregiver Goals of Treatment: pt is eager [...] of care planning. Anthony Euceda RN Pager: [phone] * Plan of Care - Jordan Lopez [...] required during toileting and ADLs]: RN and CRIMINOLOGY TEACHER Surveillance [continuous indirect monitoring]: Monitor Patient-specific fall [...] Sung MD - 03/11/2017 7:31 PM EST [facility] Operative Note Patient Name: Linda Dickerson : [id number] MR#: [id number] Case Date: 03/11/2017 Surgeon: Surgeon(s) and Role: [...] Time SPECIMEN TO PATHOLOGY (SURGICAL OR DERM) [facility] [phone] YES, Please perform frozen section Meningioma Left [...] her head was placed in a Temple host/hostess head and turned to the right, exposing the left frontaltemporal region. We then registered the cVidya stereotactic navigation system. We markedthe location of the tumor in the left sphenoid wing region, and marked a C-shaped pterional incision to create a skin flap leaving a margin around the tumor. Hair in this region was then clipped. Heroperative site was then marked off with thousand drapes. We then prepped and draped in the usual sterile fashion. We performed a [facility] mandated hard stop timeout confirming the [...] the location of the tumor using the BrightSun Stealth navigation system. Bur holes were then placed using a insurance coder bit attached to the [employer] electric drill posteriorly beyond the most lateral extent of the tumor, just above the root of zygoma, and frontally along the superior temporal line. We then removed any bony remnants using a curette. We then use a Mcdade 3 instrument to strip the dura from [...] patient was then removed from the Temple host/hostess head. She was allowed to awaken from [...] Operative Note Patient Name: Linda Dickerson : [id number] MR#: [id number] Case Date: 03/11/2017 Surgeon: Surgeon(s) and Role: [...] Time SPECIMEN TO PATHOLOGY (SURGICAL OR DERM) [facility] [phone] YES, Please perform frozen section Meningioma Left [...] Procedure Name Priority Date/Time Associated Diagnosis Comments SOCIAL PROFESSIONALS SCAN 03/14/2017 12:00 AM EST HEMOGRAM Routine [...] in this encounter Results * SCAN DOC: SOCIAL PROFESSIONALS (03/14/2017 12:00 AM EST) Anatomical Region Laterality Modality Other Narrative 03/14/2017 12:00 AM EST Ordered by an unspecified provider. Scanning Provider MEDIA MGR SCAN EXT O RDR/RSLT * (ABNORMAL) Differential, Automated (03/13/2017 5:38 AM EST) Neutrophil % 85.8 % [facility] Neutrophil Absolute 12.95(H) 1.70 - 6.10 x10(3)/mc L [facility] Lymph % 5.6 % [facility] Lymphocytes Abs 0.8(L) 0.9 - 3.2 x10(3)/mc L [facility] Monocyte % 7.2 % [facility] Monocyte Abs 1.1(H) 0.3 - 0.9 x10(3)/mc L [facility] Eos % 0.0 % [facility] Eosinophils Abs 0.0 0.0 - 0.4 x10(3)/[facility] Basophil % 0.1 % [facility] Baso Absolute 0.0 0.0 - 0.1 x10(3)/mc L [facility] Immature Gran % 1.30 % [facility] Comment: Immature granulocytes(IG's)percentage and absolute count will include metamyelocytes, myelocytes, and promyelocytes. Blood smears from CBCs yielding IG's will be scanned manually for concordance. If this scan disagrees with the automated IG or if promyelocytes are noted, a manual differential will be performed. Immature Gran Absolute 0.19(H) 0.00 - 0.04 x10(3)/mc L [facility] Blood specimen (specimen) 03/13/2017 5:38 AM EST 03/13/2017 5:54 AM EST Narrative Resulting Agency Comment Spec In Lab Angel Morse APRN HEMATOLOGY ORDERABLE S [facility] [place] [address] * (ABNORMAL) Hemogram (03/13/2017 5:38 AM EST) Pathologist [facility] White Blood Cell 15.1(H) 4.0 - 9.5 x10(3)/ L [facility] Red Blood Cell 3.89(L) 4.00 - 5.21 x10(6)/mc L [facility] Hemoglobin 11.5(L) 11.7 - 15.5 gm/dL [facility] Hematocrit 32.9(L) 35.7 - 45.8 % [facility] Mean Cell Volume 84.6 82.6 - 94.4 fL [facility] Mean Cell Hemoglobin 29.6 27.1 - 32.0 pg [facility] Mean Cell Hemoglobin Concentration 35.0 31.7 - 35.0 gm/dL [facility] Platelet 222 145 - 357 x10(3)/[facility] RDW Standard Deviation 39.8 37.0 - 46.0 [facility] RDW coefficient of variation 13.1 11.5 - 14.1 % [facility] Mean Platelet Volume 9.6 7.6 - 12.9 fL [facility] NRBC% auto 0.0 % [facility] NRBC Absolute 0.000 0.000 - 0.000 x10(3)/[facility] Blood specimen (specimen) 03/13/2017 5:38 AM EST 03/13/2017 5:54 AM EST Narrative Resulting Agency Comment Spec In Lab Angel Morse APRN HEMATOLOGY ORDERABLE S [facility] [place] [address] * (ABNORMAL) Basic Metabolic Panel (non-fasting) (03/13/2017 5:38 AM EST) [facility] Glucose 138 65 - 199 mg/dL [facility] Comment:Diabetes: >=200 mg/d L plus symptoms Blood Urea Nitrogen 9 8 - 18 mg/dL [facility] Creatinine 0.59(L) 0.70 - 1.20 mg/dL [facility] Sodium 139 135 - 145 mmol/L [facility] Potassium 4.3 3.5 - 5.0 mmol/L [facility] Comment: result rechecked-pmh Please note: ??Patients with WBC >100,000 may have falsely elevated Potassium levels. ??For accurate Potassium quantification in these patients send serum separator tube (gold top) for subsequent determinations. ??Contact the Clinical Chemistry Laboratory if there are any questions. Chloride 103 98 - 107 mmol/L [facility] Carbon Dioxide 26 22 - 31 mmol/L [facility] Anion Gap 10 5 - 15 mmol/L [facility] Calcium 9.3 8.5 - 10.5 mg/dL [facility] Comment:result rechecked-pmh Est Glomerular Filtration Rate >60 >=60 [facility] Comment: The reported eGFR should be multiplied by 1.2 for patients. The MDRD is not an appropriate measure of renal function for patients with body mass extremes or in patients with acute kidney failure. http://[facility].Humouno/DHnkdep http://[employer]/DHMCnkf Blood specimen (specimen) 03/13/2017 5:38 AM EST 03/13/2017 5:54 AM EST Narrative Resulting Agency Comment Spec In Lab Angel Morse APRN CHEMISTRY ORDERABLES [facility] [place] [address] * MRI Brain wwo Contrast (Generic) (03/12/2017 [...] EST) Phosphorus 3.5 2.5 - 4.5 mg/dL [facility] Blood specimen (specimen) Venous Draw / Unknown 03/12/2017 12:35 AM EST 03/12/2017 12:42 AM EST Narrative Resulting Agency Comment Spec In Lab Mani Sung MD CHEMISTRY ORDERABLES Performing Organization Address [facility] Co de Phone Number [facility] [place] [address] * Magnesium (03/12/2017 12:35 AM EST) Magnesium 0.70 0.69 - 1.07 mmol/L [facility] Blood specimen (specimen) Venous Draw / Unknown 03/12/2017 12:35 AM EST 03/12/2017 12:42 AM EST Narrative Resulting Agency Comment Spec In Lab Mani Sung MD CHEMISTRY ORDERABLES Performing Organization Address [facility] Co de Phone Number [facility] [place] [address] * (ABNORMAL) Differential, Automated (03/12/2017 12:35 AM EST) Neutrophil % 89.5 % [facility] Neutrophil Absolute 10.80(H) 1.70 - 6.10 x10(3)/ L [facility] Lymph % 6.7 % [facility] Lymphocytes Abs 0.8(L) 0.9 - 3.2 x10(3)/[facility] Monocyte % 3.2 % [facility] Monocyte Abs 0.4 0.3 - 0.9 x10(3)/[facility] Eos % 0.0 % [facility] Eosinophils Abs 0.0 0.0 - 0.4 x10(3)/[facility] Basophil % 0.2 % [facility] Baso Absolute 0.0 0.0 - 0.1 x10(3)/[facility] Immature Gran % 0.40 % [facility] Comment: Immature granulocytes(IG's)percentage and absolute count will include metamyelocytes, myelocytes, and promyelocytes. Blood smears from CBCs yielding IG's will be scanned manually for concordance. If this scan disagrees with the automated IG or if promyelocytes are noted, a manual differential will be performed. Immature Gran Absolute 0.05(H) 0.00 - 0.04 x10(3)/[facility] Blood specimen (specimen) 03/12/2017 12:35 AM EST 03/12/2017 12:41 AM EST Narrative Resulting Agency Comment Spec In Lab Mani Sung MD HEMATOLOGY ORDERABLE S [facility] [place] [address] * (ABNORMAL) Hemogram (03/12/2017 12:35 AM EST) White Blood Cell 12.1(H) 4.0 - 9.5 x10(3)/[facility] Red Blood Cell 3.97(L) 4.00 - 5.21 x10(6)/mc L [facility] Hemoglobin 11.4(L) 11.7 - 15.5 gm/dL [facility] Hematocrit 33.8(L) 35.7 - 45.8 % [facility] Mean Cell Volume 85.1 82.6 - 94.4 fL [facility] Mean Cell Hemoglobin 28.7 27.1 - 32.0 pg [facility] Mean Cell Hemoglobin Concentration 33.7 31.7 - 35.0 gm/dL [facility] Platelet 216 145 - 357 x10(3)/mc L [facility] RDW Standard Deviation 39.7 37.0 - 46.0 [facility] RDW coefficient of variation 12.7 11.5 - 14.1 % [facility] Mean Platelet Volume 9.2 7.6 - 12.9 fL [facility] NRBC% auto 0.0 % [facility] NRBC Absolute 0.000 0.000 - 0.000 x10(3)/mc L [facility] Blood specimen (specimen) 03/12/2017 12:35 AM EST 03/12/2017 12:41 AM EST Narrative Resulting Agency Comment Spec In Lab Mani Sung MD HEMATOLOGY ORDERABLE S Performing Organization Address City/State/[facility] Co de Phone Number [facility] [place] [address] * (ABNORMAL) Basic Metabolic Panel (non-fasting) (03/12/2017 12:35 AM EST) Glucose 163 65 - 199 mg/dL [facility] Comment:Diabetes: >=200 mg/d L plus symptoms Blood Urea Nitrogen 14 8 - 18 mg/dL [facility] Creatinine 0.59(L) 0.70 - 1.20 mg/dL [facility] Sodium 142 135 - 145 mmol/L [facility] Potassium 3.1(L) 3.5 - 5.0 mmol/L [facility] Comment: result rechecked-douglas Please note: ??Patients with WBC >100,000 may have falsely elevated Potassium levels. ??For accurate Potassium quantification in these patients send serum separator tube (gold top) for subsequent determinations. ??Contact the Clinical Chemistry Laboratory if there are any questions. Chloride 107 98 - 107 mmol/L [facility] Carbon Dioxide 20(L) 22 - 31 mmol/L [facility] Anion Gap 15 5 - 15 mmol/L [facility] Calcium 8.1(L) 8.5 - 10.5 mg/dL [facility] Est Glomerular Filtration Rate >60 >=60 [facility] Comment: The reported eGFR should be multiplied by 1.2 for patients. The MDRD is not an appropriate measure of renal function for patients with body mass extremes or in patients with acute kidney failure. http://[facility].Humouno/DHnkdep http://[employer]/DHMCnkf Blood specimen (specimen) 03/12/2017 12:35 AM EST 03/12/2017 12:41 AM EST Narrative Resulting Agency Comment Spec In Lab Angel Morse APRN CHEMISTRY ORDERABLES Performing Organization Address City/[facility]/ZIP Co de Phone Number [facility] [place] [address] * Specimen to Pathology (surgical or derm) (03/11/2017 4:52 PM EST) AP Specimen 03/11/2017 4:52 PM EST 03/11/2017 4:52 PM EST Narrative [facility] - 03/11/2017 4:52 PM EST Specimen requisition ordered. ??Separate Pathology report to follow Mani Sung MD PATHOLOGY/CYTOLOGY O RDERABLES Performing Organization Address City/[facility]/ZIP Co de Phone Number [facility] [place] [phone] * Specimen to Pathology (surgical or derm) (03/11/2017 3:22 PM EST) AP Specimen 03/11/2017 3:22 PM EST 03/11/2017 3:22 PM EST Narrative [facility] - 03/11/2017 3:22 PM EST Specimen requisition ordered. ??Separate Pathology report to follow Mani Sung MD PATHOLOGY/CYTOLOGY Jeffrey CHAVIS [facility] [place] [address] * Surgical Pathology Report (03/11/2017 3:21 PM EST) Final Diagnosis [id number] ? Location: [facility]; [facility]; A The signing pathologist has (i) examined the relevant preparation(s) for the specimen(s) and (ii) rendered or confirmed the diagnosis(es). . ?Surgical Pathology DIAGNOSIS SECRETORY MENINGIOMA, grade I Electronically signed by: ??Jorge Luis Cervantes MD Verified: ??03/18/2017 ?Pathologist Performed at: ??-[facility] Dept. of Pathology, [place], [place] DISCUSSION The lesion excised from the [...] Block ??Antibody Result (Positive/Negative) B1 ??GFAP No ANTHROPOLOGIST parenchyma is present. B1 ??KI67 Nuclear positivity [...] segment of vazquez-pink fibrous tissue. Sections/Processing: (1) shipping services sales representative section of dark brown-black friable tissue; (2) shipping services sales representative section of vazquez-pink fibrous tissue (T2) ??sm ?Frozen Section FROZEN SECTION DIAGNOSIS A - Left sphenoid wing, smear and frozen section: ??Meningioma 03/11/17 15:52 Electronically signed by: ??Jessy Daly MD Verified: ??03/11/2017 ?Pathologist Performed at: ??-[facility] Dept. of Pathology, [place], [place] This intraoperative consultation should be interpreted as a preliminary diagnosis pending review of the entire specimen and special studies, if any. 03/18/2017 2:53 PM EST [facility] BRAIN STRUCTURE / Unknown 03/11/2017 3:21 PM EST 03/11/2017 3:21 PM EST BRAIN STRUCTURE / Unknown 03/11/2017 3:21 PM EST 03/11/2017 3:21 PM EST Mani Sung MD PATHOLOGY/CYTOLOGY Jeffrey CHAVIS [facility] [place] [address] * CT Head wo Contrast (Generic) (03/11/2017 [...] 0924 (See Alternative - Provider: April Ignacio, MARIANNA) famotidine (PEPCID) tablet 20 mg(Linked Group 2) 20 mg, Oral, 2 TIMES DAILY, First dose on Sat03/11/17 at 2100, Until Discontinued, If unable to take PO, may give IV, Routine 2220 (See Alternative - Provider: Roxann Brice RN) 0851 (Given - Provider: Conner Daniel, MARIANNA)2004 (Given - Provider: Denis Stout, MARIANNA) 923 [...] MARIANNA) 923 (Given - Provider: April Ignacio, MARIANNA) magnesium sulfate 2 g in sterile water 50 mL (COMPLETED) 2 g, Intravenous, ONCE, 1 dose, On Sat03/12/17 at 0245, Administer over 120 Minutes 0300 (New Bag - Provider: Jordan Lopez, MARIANNA)0500 (Stopped - Provider: Jordan Lopez RN) potassium chloride (K-DUR/KLOR-CON) extended release tablet 60 mEq (COMPLETED) 60 mEq, Oral, ONCE, 1 dose, On Sat03/12/17 at 0200, Routine 0157 (Given - Provider: Jordan Lopez, MARIANNA) senna-docusate (PERICOLACE) 8.6-50 mg per tablet 2 tablet 2 tablet, Oral, 2 TIMES DAILY, First dose on Sat03/11/17 at 2100, Until Discontinued, Routine 2099 (Hold - Provider: Roxann Brice RN - Reason: Order parameters not met) 08 (Given - Provider: Conner Daniel RN)2003 (Given [...] Daniel RN)1515 (See Alternative - Provider: Kristen Emmanuel RN)2120 (See Alternative - Provider: Denis Stout, MARIANNA) 0405 (See Alternative - Provider: Denis Stout, MARIANAN)0927 (See Alternative - Provider: April Ignacio, MARIANNA) acetaminophen (TYLENOL) tablet 1,000 mg(Linked Group 4) 1,000 mg, Oral, EVERY 6 HOURS PRN, Starting on Sat03/11/17 at 2114, Until Sat03/13/17 at 1453, Pain, Maximum dose of acetaminophen is 4000 mg from all sources in 24 hours., Routine 0209 (Given - Provider: Jordan J John, RN)0850 (Given - Provider: Conner Daniel RN)1515 (Given - Provider: Kristen Emmanuel, MARIANNA)2120 (Given - Provider: Denis Stout, MARIANNA) 0405 (Given - Provider: Denis Stout RN)0927 (Given - Provider: April Ignacio, MARIANNA) bacitracin injection (CANCELED) ONCE PRN, Starting on Sat03/11/17 at 1735, Until Sat03/13/17 at 1453, Intra-Operative (Intra-Procedure), Routine 1735 (Given - Provider: Mani Sung MD - Comment: 04905 units in a liter LR after dura [...] MRI, Routine 1148 (Given - Provider: Faustina Sewell RN) gadobutrol (GADAVIST) 1 mMol/mL injection 7 [...] if ineffective 2004 (Given - Provider: Jordan Loepz, MARIANNA) ondansetron (ZOFRAN) tablet 4 mg(Linked Group [...] Faustina Sewell, MARIANNA)2010 (Given - Provider: Denis Stout, MARIANNA) 12 (Given - Provider: Denis Stout, MARIANNA) polyethylene glycol (MIRALAX) packet 17 g 17 [...] Routine documented in this encounter Care Teams Bandoleer Straightener Stamper Relationship Specialty Start Date End Date Crystal Howell, SOFT WORK WRAPPER LAYER AND EXAMINER [address] [place] [address] PCP - General Family Medicine 02/27/17 documented as of this encounter
--- OUTSIDE RECORDS SUMMARY | 2024-06-15 18:29 | XMS_ITS | Encounter Summary ---
Author Organization [facility] Address [address] [facility] [place] [address] Care Team Providers Care Patch Sander Name Role Phone Eunice Howell APRN Primary Care Provider [phone] Encounter Details Date Type Department Care Team (Late st Contact Info) Description 12/02/2020 11:00 AM EDT Office Visit Dermatology at 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 PRE-PROCEDURE SCREENING If no, type N. [...] in any preexisting lesions. Last visit at [facility] Derm: 02/11/2019 Last visit with this [...] FSE with Dr. Holland [x]Note routed to escrow secretary []Recall has been placed in scheduling [...] and signed by: EUNICE REGALADO MD Dermatology [facility] documented in this encounter Plan of Treatment Not on file documented as of this encounter Visit Diagnoses Diagnosis Seborrheic keratoses Multiple benign nevi Benign neoplasm of skin, site unspecified History of melanoma in situ Personal history of malignant melanoma of skin documented in this encounter Care Teams Patch Sander Relationship Specialty Start Date End Date Eunice Howell APRN [address] [place] [address] PCP - General Family Medicine 02/27/17 documented as of this encounter
--- OUTSIDE RECORDS SUMMARY | 2024-06-15 18:29 | XMS_ITS | Encounter Summary ---
[place] [address] Care Team Providers Care Major Account Representative Name Role Phone Crystal Howell APRN Primary Care Provider [phone] Encounter Details Date Type Department Care Team (Late st Contact Info) Description 03/18/2017 [place] [id number] Brook Evans RN Social History Tobacco Use [...] on filedocumented in this encounter Care Teams Major Account Representative Relationship Specialty Start Date End Date Crystal Howell APRN [address] [place] [address] PCP - General Family Medicine 02/27/17 documented as of this encounter
--- OUTSIDE RECORDS SUMMARY | 2024-06-15 18:29 | XMS_ITS | Encounter Summary ---
Author Organization [facility] Address [facility] [place] [address] Care Team Providers Care Web Support Engineer Name Role Phone Crystal Howell APRN Primary Care Provider [phone] Reason for Visit * Auth/Cert Specialty Diagnoses [...] Expiration Date Visits Re quested Visits Authorized [id number] 1 1 Encounter Details Date Type Department Care Team (Latest Contact Info) Description 03/11/2017 10:20 AM EST - 03/13/2017 12:53 PM [facility] Hospital Encounter [address] [place] [id number] Mani Sung MD Discharge Disposition: Home Social [...] anticoagulant, and non-steroidal anti-inflammatory (NSAIDs) drugs. Common pmwq-peo-wfqrbgf medications which should be avoided include Aspirin, [...] to pass. These medications can be obtained zoxg-jiy-lqpcmeo and their use is recommended on an [...] weeks. Please call the Neurosurgery Office at [phone] if you do not receive a scheduled [...] anticoagulant, and non-steroidal anti-inflammatory (NSAIDs) drugs. Common loxi-suv-soxdijb medications which should be avoided include Aspirin, [...] to pass. These medications can be obtained cpwy-gdu-nydwnax and their use is recommended on an [...] weeks. Please call the Neurosurgery Office at [phone] if you do not receive a scheduled [...] 12:23 PM EST Linda Dickerson arrived to [address] [place] [address] @ [facility] from the ICU. Oriented to room, call cancino within reach, educated on importance of using prior to getting OOB, AVSS, , incision WDL, belongings updated in eDH, bed locked in low position, purposeful hourly rounding, bed/chair alarm on. Report from MARIANNA Prieto. * Shari Gupta - 03/12/2017 7:23 AM EST NEUROSURGERY PROGRESS NOTE Linda Dickerson [id number] ID: [id number] y.o. woman s/p pterional [...] until good PO. Monitor lytes. PLEASE PAGE [phone] WITH QUESTIONS NEUROLOGIC: brain compression GI: malnutrition [...] DIAGNOSTIC performed by Kirsten Singleton MD at [facility] END[facility]COPY Prior To Admission Medications: [...] estate. enjoys playing tennis and going to [place] weekly. Assessment: Pt has been seen by [...] Anticipated Discharge Disposition: home with assist Pager: [phone] MONROE PHAM OT 03/13/2017 Occupational Therapy Rehabilitation [...] Mobility Guidelines: Independent Discharge Recommendations: Home Pager: [phone] Snehal Condon DPT, NCS 03/13/2017 Physical Therapy [...] that they may express their concerns. This lyric writer did assure them that their concerns [...] Specific Information: none Health/Prescription Coverage: Primary Insurance: [facility] MANAGED MEDICARE Secondary Insurance: N/A Prescription Coverage: as above. Preferred Pharmacy: [facility] Other: n/a Primary Care Provider: Crystal Howell, EVENT PLANNING INTERN [phone] Patient/Caregiver Goals of Treatment: pt is eager [...] of care planning. Anthony Euceda RN Pager: [phone] * Plan of Care - Jordan Lopez [...] Sung MD - 03/11/2017 7:31 PM EST [facility] Operative Note Patient Name: Linda Dickerson : [id number] MR#: [id number] Case Date: 03/11/2017 Surgeon: Surgeon(s) and Role: [...] Time SPECIMEN TO PATHOLOGY (SURGICAL OR DERM) [facility] [phone] YES, Please perform frozen section Meningioma Left [...] her head was placed in a Temple tilting head band sawyer and turned to the right, exposing the left frontaltemporal region. We then registered the Dialogfeed stereotactic navigation system. We markedthe location of the tumor in the left sphenoid wing region, and marked a C-shaped pterional incision to create a skin flap leaving a margin around the tumor. Hair in this region was then clipped. Heroperative site was then marked off with thousand drapes. We then prepped and draped in the usual sterile fashion. We performed a [facility] mandated hard stop timeout confirming the patient's [...] the location of the tumor using the Soapbox Stealth navigation system. Bur holes were then placed using a quality facilitator bit attached to the Postcron electric drill posteriorly beyond the most lateral extent of the tumor, just above the root of zygoma, and frontally along the superior temporal line. We then removed any bony remnants using a curette. We then use a [place] 3 instrument to strip the dura from [...] patient was then removed from the Temple tilting head band sawyer. She was allowed to awaken from anesthesia [...] Operative Note Patient Name: Linda Dickerson : [id number] MR#: [id number] Case Date: 03/11/2017 Surgeon: Surgeon(s) and Role: [...] Time SPECIMEN TO PATHOLOGY (SURGICAL OR DERM) [facility] [phone] YES, Please perform frozen section Meningioma Left [...] Procedure Name Priority Date/Time Associated Diagnosis Comments WALL AND FLOOR TILER SCAN 03/14/2017 12:00 AM EST HEMOGRAM Routine [...] in this encounter Results * SCAN DOC: WALL AND FLOOR TILER (03/14/2017 12:00 AM EST) Anatomical Region Laterality Modality Other Narrative 03/14/2017 12:00 AM EST Ordered by an unspecified provider. Scanning Provider MEDIA MGR SCAN EXT O RDR/RSLT * (ABNORMAL) Differential, Automated (03/13/2017 5:38 AM EST) Neutrophil % 85.8 % [facility] Neutrophil Absolute 12.95(H) 1.70 - 6.10 x10(3)/ L [facility] Lymph % 5.6 % [facility] Lymphocytes Abs 0.8(L) 0.9 - 3.2 x10(3)/ L [facility] Monocyte % 7.2 % [facility] Monocyte Abs 1.1(H) 0.3 - 0.9 x10(3)/ L [facility] Eos % 0.0 % [facility] Eosinophils Abs 0.0 0.0 - 0.4 x10(3)/[facility] Basophil % 0.1 % [facility] Baso Absolute 0.0 0.0 - 0.1 x10(3)/[facility] Immature Gran % 1.30 % [facility] Comment: Immature granulocytes(IG's)percentage and absolute count will include metamyelocytes, myelocytes, and promyelocytes. Blood smears from CBCs yielding IG's will be scanned manually for concordance. If this scan disagrees with the automated IG or if promyelocytes are noted, a manual differential will be performed. Immature Gran Absolute 0.19(H) 0.00 - 0.04 x10(3)/ L [facility] Blood specimen (specimen) 03/13/2017 5:38 AM EST 03/13/2017 5:54 AM EST Narrative Resulting Agency Comment Spec In Lab Angel Morse APRN HEMATOLOGY ORDERABLE S [facility] [place] [address] * (ABNORMAL) Hemogram (03/13/2017 5:38 AM EST) White Blood Cell 15.1(H) 4.0 - 9.5 x10(3)/mc L [facility] Red Blood Cell 3.89(L) 4.00 - 5.21 x10(6)/mc L [facility] Hemoglobin 11.5(L) 11.7 - 15.5 gm/dL [facility] Hematocrit 32.9(L) 35.7 - 45.8 % [facility] Mean Cell Volume 84.6 82.6 - 94.4 fL [facility] Mean Cell Hemoglobin 29.6 27.1 - 32.0 pg [facility] Mean Cell Hemoglobin Concentration 35.0 31.7 - 35.0 gm/dL [facility] Platelet 222 145 - 357 x10(3)/[facility] RDW Standard Deviation 39.8 37.0 - 46.0 [facility] RDW coefficient of variation 13.1 11.5 - 14.1 % [facility] Mean Platelet Volume 9.6 7.6 - 12.9 [facility] NRBC% auto 0.0 % [facility] NRBC Absolute 0.000 0.000 - 0.000 x10(3)/[facility] Blood specimen (specimen) 03/13/2017 5:38 AM EST 03/13/2017 5:54 AM EST Narrative Resulting Agency Comment Spec In Lab Angel Morse APRN HEMATOLOGY ORDERABLE S [facility] [place] [address] * (ABNORMAL) Basic Metabolic Panel (non-fasting) (03/13/2017 5:38 AM EST) Glucose 138 65 - 199 mg/dL [facility] Comment:Diabetes: >=200 mg/d L plus symptoms Blood Urea Nitrogen 9 8 - 18 mg/dL [facility] Creatinine 0.59(L) 0.70 - 1.20 mg/dL [facility] Sodium 139 135 - 145 mmol/L [facility] Potassium 4.3 3.5 - 5.0 mmol/L [facility] Comment: result rechecked-pmh Please note: ??Patients with WBC >100,000 may have falsely elevated Potassium levels. ??For accurate Potassium quantification in these patients send serum separator tube (gold top) for subsequent determinations. ??Contact the Clinical Chemistry Laboratory if there are any questions. Chloride 103 98 - 107 mmol/L [facility] Carbon Dioxide 26 22 - 31 mmol/L [facility] Anion Gap 10 5 - 15 mmol/L [facility] Calcium 9.3 8.5 - 10.5 mg/dL [facility] Comment:result rechecked-pmh Est Glomerular Filtration Rate >60 >=60 [facility] Comment: The reported eGFR should be multiplied by 1.2 for patients. The MDRD is not an appropriate measure of renal function for patients with body mass extremes or in patients with acute kidney failure. http://[employer]/DHnkdep http://[employer]/DHMCnkf Blood specimen (specimen) 03/13/2017 5:38 AM EST 03/13/2017 5:54 AM EST Narrative Resulting Agency Comment Spec In Lab Agnel Morse APRN CHEMISTRY ORDERABLES Performing Organization Address City/State/[facility] Co de Phone Number [facility] [place] [address] * MRI Brain wwo Contrast (Generic) (03/12/2017 [...] ORDERABLES * Phosphorus (03/12/2017 12:35 AM EST) [facility] Phosphorus 3.5 2.5 - 4.5 mg/dL [facility] Blood specimen (specimen) Venous Draw / Unknown 03/12/2017 12:35 AM EST 03/12/2017 12:42 AM EST Narrative Resulting Agency Comment Spec In Lab Mani Sung MD CHEMISTRY ORDERABLES Performing Organization Address [facility] Co de Phone Number [facility] [place] [address] * Magnesium (03/12/2017 12:35 AM EST) [facility] Magnesium 0.70 0.69 - 1.07 mmol/L [facility] Blood specimen (specimen) Venous Draw / Unknown 03/12/2017 12:35 AM EST 03/12/2017 12:42 AM EST Narrative Resulting Agency Comment Spec In Lab Mani Sung MD CHEMISTRY ORDERABLES Performing Organization Address City/[facility] Co de Phone Number [facility] [place] [address] * (ABNORMAL) Differential, Automated (03/12/2017 12:35 AM EST) [facility] Neutrophil % 89.5 % [facility] Neutrophil Absolute 10.80(H) 1.70 - 6.10 x10(3)/ L [facility] Lymph % 6.7 % [facility] Lymphocytes Abs 0.8(L) 0.9 - 3.2 x10(3)/ L [facility] Monocyte % 3.2 % [facility] Monocyte Abs 0.4 0.3 - 0.9 x10(3)/[facility] Eos % 0.0 % [facility] Eosinophils Abs 0.0 0.0 - 0.4 x10(3)/[facility] Basophil % 0.2 % [facility] Baso Absolute 0.0 0.0 - 0.1 x10(3)/[facility] Immature Gran % 0.40 % [facility] Comment: Immature granulocytes(IG's)percentage and absolute count will include metamyelocytes, myelocytes, and promyelocytes. Blood smears from CBCs yielding IG's will be scanned manually for concordance. If this scan disagrees with the automated IG or if promyelocytes are noted, a manual differential will be performed. Immature Gran Absolute 0.05(H) 0.00 - 0.04 x10(3)/ L [facility] Blood specimen (specimen) 03/12/2017 12:35 AM EST 03/12/2017 12:41 AM EST Narrative Resulting Agency Comment Spec In Lab Mani Sung MD HEMATOLOGY ORDERABLE S [facility] [place] [address] * (ABNORMAL) Hemogram (03/12/2017 12:35 AM EST) White Blood Cell 12.1(H) 4.0 - 9.5 x10(3)/ L [facility] Red Blood Cell 3.97(L) 4.00 - 5.21 x10(6)/ L [facility] Hemoglobin 11.4(L) 11.7 - 15.5 gm/dL [facility] Hematocrit 33.8(L) 35.7 - 45.8 % [facility] Mean Cell Volume 85.1 82.6 - 94.4 fL [facility] Mean Cell Hemoglobin 28.7 27.1 - 32.0 pg [facility] Mean Cell Hemoglobin Concentration 33.7 31.7 - 35.0 gm/dL [facility] Platelet 216 145 - 357 x10(3)/mc L [facility] RDW Standard Deviation 39.7 37.0 - 46.0 fL [facility] RDW coefficient of variation 12.7 11.5 - 14.1 % [facility] Mean Platelet Volume 9.2 7.6 - 12.9 fL [facility] NRBC% auto 0.0 % [facility] NRBC Absolute 0.000 0.000 - 0.000 x10(3)/mc L [facility] Blood specimen (specimen) 03/12/2017 12:35 AM EST 03/12/2017 12:41 AM EST Narrative Resulting Agency Comment Spec In Lab Mani Sung MD HEMATOLOGY ORDERABLE S Performing Organization Address City/State/[facility] Co de Phone Number [facility] [place] [address] * (ABNORMAL) Basic Metabolic Panel (non-fasting) (03/12/2017 12:35 AM EST) Glucose 163 65 - 199 mg/dL [facility] Comment:Diabetes: >=200 mg/d L plus symptoms Blood Urea Nitrogen 14 8 - 18 mg/dL [facility] Creatinine 0.59(L) 0.70 - 1.20 mg/dL [facility] Sodium 142 135 - 145 mmol/L [facility] Potassium 3.1(L) 3.5 - 5.0 mmol/L [facility] Comment: result rechecked-douglas Please note: ??Patients with WBC >100,000 may have falsely elevated Potassium levels. ??For accurate Potassium quantification in these patients send serum separator tube (gold top) for subsequent determinations. ??Contact the Clinical Chemistry Laboratory if there are any questions. Chloride 107 98 - 107 mmol/L [facility] Carbon Dioxide 20(L) 22 - 31 mmol/L [facility] Anion Gap 15 5 - 15 mmol/L [facility] Calcium 8.1(L) 8.5 - 10.5 mg/dL [facility] Est Glomerular Filtration Rate >60 >=60 [facility] Comment: The reported eGFR should be multiplied by 1.2 for patients. The MDRD is not an appropriate measure of renal function for patients with body mass extremes or in patients with acute kidney failure. http://[employer]/DHnkdep http://[employer]/DHMCnkf Blood specimen (specimen) 03/12/2017 12:35 AM EST 03/12/2017 12:41 AM EST Narrative Resulting Agency Comment Spec In Lab Angel Morse APRN CHEMISTRY ORDERABLES Performing Organization Address [facility]/ZIP Co de Phone Number [facility] [place] [id number] * Specimen to Pathology (surgical or derm) (03/11/2017 4:52 PM EST) AP Specimen 03/11/2017 4:52 PM EST 03/11/2017 4:52 PM EST Narrative [facility] - 03/11/2017 4:52 PM EST Specimen requisition ordered. ??Separate Pathology report to follow Mani Sung MD PATHOLOGY/CYTOLOGY O RDERABLES Performing Organization Address City/[facility]/ZIP Co de Phone Number [facility] [place] [address] * Specimen to Pathology (surgical or derm) (03/11/2017 3:22 PM EST) AP Specimen 03/11/2017 3:22 PM EST 03/11/2017 3:22 PM EST Narrative [facility] - 03/11/2017 3:22 PM EST Specimen requisition ordered. ??Separate Pathology report to follow Mani Sung MD PATHOLOGY/CYTOLOGY O PARTHA [facility] [place] [address] * Surgical Pathology Report (03/11/2017 3:21 PM EST) Final Diagnosis [id number] ? Location: [facility]; [facility]; A The signing pathologist has (i) examined the relevant preparation(s) for the specimen(s) and (ii) rendered or confirmed the diagnosis(es). . ?Surgical Pathology DIAGNOSIS SECRETORY MENINGIOMA, grade I Electronically signed by: ??Jorge Luis Cervantes MD Verified: ??03/18/2017 ?Pathologist Performed at: ??-[facility] Dept. of Pathology, [place], [place] DISCUSSION The lesion excised from the [...] Block ??Antibody Result (Positive/Negative) B1 ??GFAP No THERMOSTATIC CONTROLS SUPERVISOR parenchyma is present. B1 ??KI67 Nuclear positivity [...] vazquez-pink fibrous tissue. Sections/Processing: (1) technical sales representatives section of dark brown-black friable tissue; (2) technical sales representatives section of vazquez-pink fibrous tissue (T2) ??sm ?Frozen Section FROZEN SECTION DIAGNOSIS A - Left sphenoid wing, smear and frozen section: ??Meningioma 03/11/17 15:52 Electronically signed by: ??Jessy Daly MD Verified: ??03/11/2017 ?Pathologist Performed at: ??-[facility] Dept. of Pathology, [place], [place] This intraoperative consultation should be interpreted as a preliminary diagnosis pending review of the entire specimen and special studies, if any. 03/18/2017 2:53 PM EST [facility] BRAIN STRUCTURE / Unknown 03/11/2017 3:21 PM EST 03/11/2017 3:21 PM EST BRAIN STRUCTURE / Unknown 03/11/2017 3:21 PM EST 03/11/2017 3:21 PM EST Mani Sung MD PATHOLOGY/CYTOLOGY Jeffrey CHAVIS [facility] [place] [address] * CT Head wo Contrast (Generic) (03/11/2017 [...] suppositories? No 2104 (Given - Provider: Jordan Lopez, MARIANNA) dexamethasone (DECADRON) injection 4 mg(Linked Group 1) 4 mg, Intravenous, EVERY 6 HOURS SCHEDULED, First dose on Sat03/11/17 at 1930, Until Discontinued, Give IV if unable to take PO., Routine 1951 (Given - Provider: Jordan J John, RN) 0027 (Given - Provider: Jordan Lopez RN)0609 (Given - Provider: Jordan Lopez RN)1154 (See Alternative - Provider: Faustina Sewell RN)1800 (See Alternative - Provider: Faustina Sewell RN) 0013 (See Alternative - Provider: Denis Stout RN)0551 (See Alternative - Provider: Denis Stout RN)1151 (See Alternative - Provider: April Igancio, RN) dexamethasone (DECADRON) tablet 4 mg(Linked Group 1) 4 mg, Oral, EVERY 6 HOURS SCHEDULED, First dose on Sat03/11/17 at 1930, Until Discontinued, Routine 1951 (See Alternative - Provider: Jordan Lopez RN) 0027 (See Alternative - Provider: Jordan Lopez RN)0609 (See Alternative - Provider: Jordan Lopez RN)1154 (Given - Provider: Faustina Sewell RN)1800 (Given - Provider: Faustina Sewell RN) 0013 (Given - Provider: Denis Stout RN)0551 (Given - Provider: Denis Stout RN)1151 (Given - Provider: April Ignacio, RN) famotidine (PEPCID) injection 20 mg(Linked Group 2) 20 mg, Intravenous, 2 TIMES DAILY, First dose on Sat03/11/17 at 2100, Until Discontinued, Routine 2220 (Given - Provider: Roxann Brice RN) 08 [...] Routine 2219 (See Alternative - Provider: Roxann Brice RN) 08 (Given - Provider: Conner Daniel, MARIANNA)2004 (Given - Provider: Denis Stout RN) 923 [...] Daniel, MARIANNA)2004 (See Alternative - Provider: Denis Stout RN) 923 (See Alternative - Provider: April Ignacio, MARIANNA) levETIRAcetam (KEPPRA) tablet 500 mg(Linked Group 3) 500 mg, Oral, 2 TIMES DAILY, First dose on Sat03/11/17 at 2100, Until Discontinued, Routine 2219 (See Alternative - Provider: Roxann Brice RN)2234 [...] Jordan Lopez RN)0500 (Stopped - Provider: Jordan Lopez RN) potassium [...] 923 (Given - Provider: April Ignacio, MARIANNA) sodium [...] RN)1515 (See Alternative - Provider: Kristen Emmanuel RN)212 (See Alternative - Provider: Denis Stout RN) 040 (See Alternative - Provider: Denis Stout RN)09 (See Alternative - Provider: April Ignacio, MARIANNA) acetaminophen (TYLENOL) tablet 1,000 mg(Linked Group 4) 1,000 mg, Oral, EVERY 6 HOURS PRN, Starting on Sat03/11/17 at 2114, Until Sat03/13/17 at 1453, Pain, Maximum dose of acetaminophen is 4000 mg from all sources in 24 hours., Routine 0209 (Given - Provider: Jordan Lopez RN)0850 (Given - Provider: Conner Daniel RN)1515 (Given - Provider: Kristen Emmanuel RN)2120 (Given - Provider: Denis Stout RN) 0405 (Given - Provider: Denis Stout RN)09 (Given - Provider: April Ignacio, MARIANNA) bacitracin injection (CANCELED) ONCE PRN, Starting on Sat03/11/17 at 1735, Until Sat03/13/17 at 1453, Intra-Operative (Intra-Procedure), Routine 1735 (Given - Provider: Mani Sung MD - Comment: 67751 units in a liter LR after dura [...] Routine documented in this encounter Care Teams Web Support Engineer Relationship Specialty Start Date End Date Crystal Howell APRN [address] [place] [address] PCP - General Family Medicine 02/27/17 documented as of this encounter
--- OUTSIDE RECORDS SUMMARY | 2024-06-15 18:29 | XMS_ITS | Encounter Summary ---
Author Organization [facility] Address [facility] [place] [address] Care Team Providers Care Director Of Food And Nutrition Name Role Phone Crystal Howell APRN Primary Care Provider [phone] Reason for Referral * Diagnostic Test (Routine) - Closed Specialty Diagnoses / Procedures Referred By Haseeb messina Referred To Contact Radiology Diagnoses MGM (meningioma) Procedures MRI Brain wwo Contrast (Generic) Mani Sung MD [facility] [place] [address] [facility] [place] [address] Referral ID Status Reason Start Date Expiration Date V isits Requested Visits Authorized [id number] Closed Specialty Service Requested 11/22/2020 05/25/2022 1 1 Encounter Details Date Type Department Care Team (Late st Contact Info) Description 11/21/2020 [place] [address] Riya Call Social History Tobacco [...] who have questions please contact the health director day care center that requested your imaging first. ? Narrative 12/15/2020 11:47 AM EDT EXAMINATION: MRI BRAIN WWO CONTRAST (GENERIC) CLINICAL HISTORY: Brain/LINE INSPECTOR neoplasm, surveillance Meningioma (D32.9) S/P L pterinal [...] MRI BRAIN WWO CONTRAST (GENERIC) CLINICAL HISTORY: Brain/LINE INSPECTOR neoplasm, surveillance Meningioma (D32.9) S/P L pterinal [...] patients who have questions please contactthe health director day care center that requested your imaging first. Mani Sung MD IMG MRI ORDERABLES documented in this encounter Visit Diagnoses Diagnosis MGM (meningioma) Benign neoplasm of cerebral meninges MGM (meningioma) Benign neoplasm of cerebral meninges documented in this encounter Care Teams Director Of Food And Nutrition Relationship Specialty Start Date End Date Crystal Howell APRN [address] [place] [address] PCP - General Family Medicine 02/27/17 documented as of this encounter
--- OUTSIDE RECORDS SUMMARY | 2024-06-15 18:29 | XMS_ITS | Encounter Summary ---
[facility] Organization [facility] Address [facility] [place] [address] Care Team Providers Care Trial Mgr Name Role Phone Crystal Howell APRN Primary Care Provider [phone] [phone] Reason for Referral * Diagnostic Test (Routine) - Closed Specialty Diagnoses / Procedures Referred By Contac t Referred To Contact Radiology Diagnoses MGM (meningioma) Procedures MRI Brain wwo Contrast (Generic) Mani Sung MD [facility] [place] [address] [place] [address] Referral ID Status Reason Start Date Expiration Date V isits Requested Visits Authorized [id number] Closed Specialty Service Requested 11/22/2020 05/25/2022 1 1 Reason for Visit * Diagnostic Test (Routine) - Closed Specialty Diagnoses / Procedures Referred By Contac t Referred To Contact Radiology Diagnoses MGM (meningioma) Procedures MRI Brain wwo Contrast (Generic) Mani Sung MD [facility] [place] [address] [place] [address] Referral ID Status Reason Start Date Expiration Date V isits Requested Visits Authorized [id number] Closed Specialty Service Requested 11/22/2020 05/25/2022 1 1 Encounter Details Date Type Department Care Team (Latest Contact Info) Description 12/15/2020 8:10 AM EDT - 12/15/2020 8:12 AM EDT Hospital [place] [address] Mani Sung MD MGOj (meningioma) [...] End Date fluticasone propionate (FLONASE) 50 mcg/actuation [place], Suspension SHAKE LIQUID AND USE 1 SPRAY IN EACH NOSTRIL TWICE DAILY 11/15/2020 HERBAL DRUGS ORAL Take 2 tablets by mouth nightly as needed. Actually take CBD Oil 09/17/2023 documented as of this encounter Progress Notes * Kelly Samuels, RN - 12/15/2020 10:33 AM EDT MRI PRE-SEDATION ASSESSMENT NOTE NAME: Em Dickerson AGE: 70 y.o. : 1950 [address] [facility] [address] Female [phone] (home) Telephone Information: Crystal Howell APRN No primary care provider on file. Allergies Allergen Reactions ??? Iodine And Iodide Containing Products Anaphylaxis ??? Penicillins Hives ??? Nitrofurantoin Other (See Comments) Stomach upset Date/Time of call: December 09, 2020/12:33 PM/ PREVIOUS MRI SCAN? Yes SCHEDULED SCAN: MRI BRAIN WWO CONTRAST (GENERIC) [[id number]], 60 minutes, scanner 1 SUBJECTIVE: clasutrophobia CAN YOU LAY FLAT? yes AIRWAY/BREATHING ISSUES? no DO YOU HAVE ANY INVOLUNTARY MOVEMENTS? no DO YOU HAVE ANY PAIN? no DO YOU TAKE PAIN MED ON A DAILY BASIS? na ASSESSMENT: Pt is a good candidate for po sedation PLAN: Diazepam 2 mg x 4 po (DWP ) You must have a team otr truck driver present when you check in. This patient has been informed that they require a team otr truck driver to drive them home after this procedure. In the absence of a team otr truck driver, IR will not be able to sedate for your scan. Pt verbalized understanding of these instructions during the pre-procedure education via phone. Yes [place] of team otr truck driver: Phone number: PRIOR SCAN DATE/S ?SEDATION [...] who have questions please contact the health health care technician that requested your imaging first. ? Electronically signed by: Anshul Abel MD, [facility] ([phone]), at 12/15/2020 11:47 AM Narrative 12/15/2020 11:47 AM EDT EXAMINATION: MRI BRAIN WWO CONTRAST (GENERIC) CLINICAL HISTORY: Brain/IN FILE OPERATOR neoplasm, surveillance Meningioma (D32.9) S/P L pterinal [...] MRI BRAIN WWO CONTRAST (GENERIC) CLINICAL HISTORY: Brain/IN FILE OPERATOR neoplasm, surveillance Meningioma (D32.9) S/P L pterinal [...] patients who have questions please contactthe health health care technician that requested your imaging first. Electronically signed by: Anshul Abel MD, [facility]([phone]), at 12/15/2020 11:47 AM Mani Sung MD [...] mg documented in this encounter Care Teams Trial Mgr Relationship Specialty Start Date End Date Crystal Howell APRN [address] [place] [address] PCP - General Family Medicine 02/27/17 documented as of this encounter
--- OUTSIDE RECORDS SUMMARY | 2024-06-15 18:29 | XMS_ITS | Encounter Summary ---
[place] [address] Care Team Providers Care Pipe Fitter Welding Name Role Phone Crystal Howell APRN Primary Care Provider [phone] Encounter Details Date Type Department Care Team (Late st Contact Info) Description 03/20/2017 [place] [address] Riya Call Social History Tobacco Use Types [...] on filedocumented in this encounter Care Teams Pipe Fitter Welding Relationship Specialty Start Date End Date Crystal Howell APRN [address] [place] [address] PCP - General Family Medicine 02/27/17 documented as of this encounter
--- OUTSIDE RECORDS SUMMARY | 2024-06-15 18:29 | XMS_ITS | Encounter Summary ---
Author Organization [facility] Address [facility] [place] [address] Care Team Providers Care Battery Checker Name Role Phone Crystal Howell APRN Primary Care Provider [phone] [phone] Reason for Visit * Diagnostic Test (Routine) - Closed Specialty Diagnoses / Procedures Referred By Haseeb messina Referred To Contact Radiology Diagnoses Meningioma Procedures MRI Brain wwo Contrast (Generic) [facility] Neurosurgery [address] [place] [address] [facility] [place] [address] Referral ID Status Reason Start Date Expiration Date V isits Requested Visits Authorized [id number] Closed Specialty Service Requested 08/13/2017 08/13/2018 1 1 Encounter Details Date Type Department Care Team (Latest Contact Info) Description 10/15/2017 9:04 AM EDT - 10/15/2017 11:59 PM EDT Hospital [place] [address] Mani Sung MD Discharge Disposition: [...] mLs documented in this encounter Care Teams Battery Checker Relationship Specialty Start Date End Date Crystal Howell APRN [address] [place] [address] PCP - General Family Medicine 02/27/17 documented as of this encounter
--- OUTSIDE RECORDS SUMMARY | 2024-06-15 18:29 | XMS_ITS | Encounter Summary ---
Author Organization [facility] Address [facility] [place] [address] Care Team Providers Care Belt And Link Shop Supervisor Name Role Phone Crystal Howell APRN Primary Care Provider [phone] [phone] Encounter Details Date Type Department Care Team (Late st Contact Info) Description 11/18/2017 Telephone Dermatology at [facility] [address] [place] [address] Crystal Yo MD Social History Tobacco Use [...] on filedocumented in this encounter Care Teams Belt And Link Shop Supervisor Relationship Specialty Start Date End Date Crystal Howell APRN [address] [place] [address] PCP - General Family Medicine 02/27/17 documented as of this encounter
--- OUTSIDE RECORDS SUMMARY | 2024-06-15 18:29 | XMS_ITS | Encounter Summary ---
Author Organization [facility] Address [facility] [place] [address] Care Team Providers Care Pot Washer Name Role Phone Crystal Howell APRN Primary Care Provider [phone] [phone] Reason for Referral * Diagnostic Test (Routine) - Closed Specialty Diagnoses / Procedures Referred By Contac t Referred To Contact Radiology Diagnoses Meningioma Procedures MRI Brain wwo Contrast (Generic) [facility] Neurosurgery [address] [place] [address] [place] [address] Referral ID Status Reason Start Date Expiration Date V isits Requested Visits Authorized [id number] Closed Specialty Service Requested 08/13/2017 08/13/2018 1 1 Reason for Visit * Diagnostic Test (Routine) - Closed Specialty Diagnoses / Procedures Referred By Contac t Referred To Contact Radiology Diagnoses Meningioma Procedures MRI Brain wwo Contrast (Generic) [facility] Neurosurgery [address] [place] [address] [place] [address] Referral ID Status Reason Start Date Expiration Date V isits Requested Visits Authorized [id number] Closed Specialty Service Requested 08/13/2017 08/13/2018 1 1 Encounter Details Date Type Department Care Team (Latest Contact Info) Description 10/15/2017 9:04 AM EDT - 10/15/2017 11:59 PM EDT Hospital Encounter MRI at [facility] [place] [address] Mani Sung MD Meningioma Discharge Disposition: Home [...] Dickerson AGE: 67 y.o. : 1950 [address] [facility] [address] Female [phone] (home) Telephone Information: Crystal Howell APRN No primary care provider on file. Allergies Allergen Reactions ??? Iodine And Iodide Containing Products Anaphylaxis ??? Penicillins Hives ??? Nitrofurantoin Other (See Comments) Stomach upset Date/Time of call: October 10, 2017/9:14 AM/ PREVIOUS MRI SCAN? Yes HEIGHT: WEIGHT: SCHEDULED SCAN: MRI BRAIN WWO CONTRAST [[id number]] (Head first, 60 minutes) SUBJECTIVE: The last [...] scanner. ( ) You must have a drop hammer pile driver operator present when you check in. This patient has been informed that they require a drop hammer pile driver operator to drive them home after this procedure. In the absence of a drop hammer pile driver operator, IR will not be able to sedate for your scan. Pt verbalized understanding of these instructions during the pre-procedure education via phone. Yes Name of drop hammer pile driver operator: Willam Phone number PRIOR SCAN [...] meninges documented in this encounter Care Teams Pot Washer Relationship Specialty Start Date End Date Crystal Howell, STREET LIGHT WIRER [address] [place] [address] PCP - General Family Medicine 02/27/17 documented as of this encounter
--- OUTSIDE RECORDS SUMMARY | 2024-06-15 18:29 | XMS_ITS | Encounter Summary ---
Author Organization [facility] Address [facility] [place] [address] Care Team Providers Care Armament Aircraft Mechanic Name Role Phone Crystal Howell APRN Primary Care Provider [phone] [phone] Reason for Referral * Diagnostic Test (Routine) - Closed Specialty Diagnoses / Procedures Referred By Haseeb messina Referred To Contact Radiology Diagnoses Meningioma Procedures MRI Brain wwo Contrast (Generic) [facility] [place] Neurosurgery [address] [place] [address] [facility] [place] [address] Referral ID Status Reason Start Date Expiration Date V isits Requested Visits Authorized [id number] Closed Specialty Service Requested 10/23/2017 10/23/2018 2 2 Encounter Details Date Type Department Care Team (Late st Contact Info) Description 10/23/2017 Orders [place] [address] Lizeth Ann RN Meningioma Social [...] meninges documented in this encounter Care Teams Armament Aircraft Mechanic Relationship Specialty Start Date End Date Crystal Howell APRN [address] [place] [address] PCP - General Family Medicine 02/27/17 documented as of this encounter
--- OUTSIDE RECORDS SUMMARY | 2024-06-15 18:29 | XMS_ITS | Encounter Summary ---
Author Organization [facility] Address [facility] [place] [address] Care Team Providers Care Data Processing Specialist Name Role Phone Crystal Howell APRN Primary Care Provider [phone] [phone] Reason for Visit * Reason Comments Results had MRI today Encounter Details Date Type Department Care Team (Late st Contact Info) Description 07/11/2017 11:30 AM EST Office [place] [address] Mani Sung MD Meningioma Social History Tobacco [...] documented in this encounter Care Teams Data Processing Specialist Relationship Specialty Start Date End Date Crystal Howell APRN [address] [place] [address] PCP - General Family Medicine 02/27/17 documented as of this encounter
--- OUTSIDE RECORDS SUMMARY | 2024-06-15 18:29 | XMS_ITS | Encounter Summary ---
Author Organization [facility] Address [address] [facility] [place] [address] Care Team Providers Care Refinery Operator Visbreaking Name Role Phone Eunice Howell APRN Primary Care Provider [phone] Reason for Visit * Reason Comments Skin Cancer Examination Encounter Details Date Type Department Care Team (Late st Contact Info) Description 02/11/2019 11:45 AM EDT Office Visit Dermatology at [facility] [address] [place] [address] Eunice Regalado MD Benign keratosis; [...] original note were not included. DERMATOLOGY AT [facility] Dermatology At [facility] [address] [facility] [address] FOLLOW-UP Date of service: 02/11/2019 Em Dickerson [...] History - Single - 2 Children - loop tender Family History Non-contributory Review of Systems General: [...] MD. Eunice Regalado MD Section of Dermatology [facility] documented in this encounter Plan of Treatment Not on file documented as of this encounter Visit Diagnoses Diagnosis Benign keratosis Vascular lesion Unspecified circulatory system disorder documented in this encounter Care Teams Refinery Operator Visbreaking Relationship Specialty Start Date End Date Eunice oHwell APRN [address] [place] [address] PCP - General Family Medicine 02/27/17 documented as of this encounter
--- OUTSIDE RECORDS SUMMARY | 2024-06-15 18:29 | XMS_ITS | Encounter Summary ---
Author Organization [facility] Address [facility] [place] [address] Care Team Providers Care Bicycle Inspector Name Role Phone Crystal Howell APRN Primary Care Provider [phone] Reason for Referral * Diagnostic Test (Routine) - Closed Specialty Diagnoses / Procedures Referred By Haseeb messina Referred To Contact Radiology Diagnoses Meningioma Procedures MRI Brain wwo Contrast (Generic) Mani Sung MD [facility] [place] [address] [place] [address] Referral ID Status Reason Start Date Expiration Date V isits Requested Visits Authorized [id number] Closed Specialty Service Requested 05/12/2019 11/09/2020 1 1 Encounter Details Date Type Department Care Team (Late st Contact Info) Description 05/12/2019 Orders [place] [address] Brook Evans RN Meningioma Social [...] report, please contact the number below. ? Electronically signed by: Jackson Anderson [facility] ([phone]), at 06/11/2019 4:07 PM Narrative 06/11/2019 4:07 PM EST EXAMINATION: MRI [...] this report, please contact the number below. Electronically signed by: Jackson Anderson [facility]([phone]), at 06/11/2019 4:07 PM Mani Sung MD IMG MRI ORDERABLES documented in this encounter Visit Diagnoses Diagnosis Meningioma Benign neoplasm of cerebral meninges Meningioma Benign neoplasm of cerebral meninges documented in this encounter Care Teams Bicycle Inspector Relationship Specialty Start Date End Date Crystal Howell APRN [address] [place] [address] PCP - General Family Medicine 02/27/17 documented as of this encounter
[2024-06-15 18:30] LABS: Abs Immature Grans 0.05 10^3/uL (0.0-0.06); Absolute Basophil Count 0.06 10^3/uL (0.0-0.2); Absolute Eosinophil Count 0.26 10^3/uL (0.0-0.7); Absolute Lymphocyte Count 2.72 10^3/uL (1.2-3.4); Absolute Monocyte Count 0.74 10^3/uL (0.1-0.8); Absolute Neutrophil Count 4.05 10^3/uL (1.2-6.7); Basophils % 0.8 %; Eosinophils % 3.3 %; HCT 39.8 % (36.0-46.0); HGB 13.5 g/dL (11.2-15.7); Immature Grans % 0.6 %; Lymphocytes % 34.5 %; MCH 28.8 pg (27.0-33.0); MCHC 33.9 % (32.0-36.0); MCV 85 fL (80-95); Monocytes % 9.4 %; Neutrophils % 51.4 %; Platelet Count 262 10^3/uL (130-400); RBC 4.69 10^6/uL (3.93-5.22); RDW 13.3 % (11.7-14.6); RDW-SD 40.9 fL; WBC 7.88 10^3/uL (4.4-10.8)
--- NOTE | 2024-06-15 18:30 | ED.GENADUL_ITS ---
Discharge Plan Disposition Patient Disposition: Home Condition: Good Discharge Details Clinical Impression: Chest pain Primary Care Provider: Goldie Maloney ED Provider: Shari Saunders Home Meds and New Rx's Prescriptions: Continued cholecalciferol (vitamin D3) 2,000 UNIT tablet 2,000 unit PO DAILY magnesium oxide 500 MG capsule 500 mg PO DAILY levothyroxine 50 mcg tablet 25 mcg PO DAILY Patient Comments: TAKE ONE TABLET BY MOUTH AT BEDTIME Discharge Instructions Instructions: Chest Pain, Adult ED Additional Instructions: Please call your primary care doctor in the morning to schedule an appointment for within the next 48 hours to followup on your visit here. Please discuss your blood pressure at that visit as it is high here today. Return to the emergency department for new or worsening symptoms including if your chest pain returns, you have difficulty swallowing, you continue to vomit, you feel lightheaded or short of breath, or if you have any other concerns. Referrals: Goldie Maloney [Primary Care Provider] - [facility] General Mode of arrival: ambulatory . Date/Time Provider Initiated Documentation: 06/15/24 17:45 . Limitations to Documentation: no limitations . Information obtained by: patient . HPI Narrative: 74yo F with hx of HLD and hypertension (not currently taking antihypertensives), presenting for chest pain. Early this afternoon took a bite of sushi and then squeezing tightness in her chest after swallowing. Shortly thereafter vomited which seamed to relieve the pain. No recurrence of chest pain since then. No further vomiting. Initially stayed home but after speaking with friend pre sented to the ED as she is aware that cardiac issues can present with atypical symptoms in women including indigestion. No shortness of breath, lightheadedness, or palpations at any point. Otherwise in her usual state of health with no fevers, chills, rash, numbness, weakness, back pain, or other concerns. Related Data Home Medications ?Medication ?Instructions ?Recorded ?Confirmed cholecalciferol (vitamin D3) 50 2,000 unit PO DAILY 04/22/13 06/15/24 mcg (2,000 unit) tablet magnesium oxide 500 mg capsule 500 mg PO DAILY 05/07/17 06/15/24 levothyroxine 50 mcg tablet 25 mcg PO DAILY 06/15/24 06/15/24 Allergies Allergy/AdvReac Type Severity Reaction Status Date / Time Penicillins Allergy Intermediate HIVES Unverified 06/15/24 17:51 nitrofurantoin (From AdvReac Mild UPSET Unverified 06/15/24 17:51 Macrobid) STOMACH nitrofurantoin AdvReac Mild UPSET Unverified 06/15/24 17:51 macrocrystalline (From STOMACH Macrobid) IVP CONTRAST DYE Allergy Severe THROAT Uncoded 06/15/24 17:51 CLOSED UP General Stated Complaint: Chest Pain TIM: 3 Review of Systems Narrative: see HPI Exam Narrative Exam Narrative: General: Alert, well appearing, well nourished, in no acute distress. Head: Normocephalic, atraumatic Neck: Trachea midline, ?Neck supple. ENT: ?MMM.? No oropharygeal lesions or exudate. Cardiac: ?RRR, no murmurs appreciated Resp: No respiratory distress. CTAB. Abd: ?Soft, non-distended, nontender Extremities: ?No deformities.? No peripheral edema. Neurologic: GCS 15. ? Moves all extremities freely against gravity Course Vital Signs Vital signs: Vital Signs Temperature 36.4 C L 06/15/24 17:39 Pulse 70 06/15/24 17:39 Respiratory Rate 18 06/15/24 17:39 Blood Pressure 180/94 H 06/15/24 17:39 Pulse Oximetry 96 06/15/24 17:39 Temperature 36.4 C L 06/15/24 17:39 Temperature Source Axillary 06/15/24 17:39 Pulse 70 06/15/24 17:39 Respiratory Rate 18 06/15/24 18:13 Respiratory Effort Normal, Non-Labored 06/15/24 18:13 Respiratory Depth Normal 06/15/24 18:13 Respiratory Pattern Normal 06/15/24 18:13 Blood Pressure 180/94 H 06/15/24 17:39 Pulse Oximetry 96 06/15/24 17:39 Oxygen Delivery Method Room Air 06/15/24 17:39 Oxygen Flow Rate 0 06/15/24 17:39 Medical Decision Making 74yo F with hx of HLD and hypertension (not currently taking antihypertensives), presenting for chest pain. Early this afternoon took a bite of sushi and then squeezing tightness in her chest after swallowing. Shortly thereafter vomited which seamed to relieve the pain. No recurrence of chest pain since then. No further vomiting. Not suggestive of aortic dissection. Hypertensive on arrival, vital signs otherwise reassuring. History most suggestive of dysphagia; will evaluate for acute cardiopulmonary pathology with EKG/CXR/labs. -EKG NSR, appropriate intervals, no ST segment or T wave abnormalities to suggest occlusive M -CXR independently reviewed, no focal pneumonia or pneumothorax on my view, radiology read with no acute findings. -Labs reviewed as below, CBC reassuring with no leukocytosis or anemia, CMP with no actionable abnormalities,lipase not suggestive of pancreatitis, BNP normal, troponins 8, 10 (would not further pursue ACS/observe/trend troponins at this time), dimer 533 (age adjusted not concerning, would not get CTA for PE ). On reassessment patient remains well appearing. BP normalized without intervention. She requests discharge home which is reasonable with her reassuring workup here. Advised to followup closely with PCP. Discharge instructions and return precautions were reviewed with patient who verbalized understanding. All questions were answered and she is in full agreeement with the plan. Lab Data Lab results reviewed: Yes I reviewed the patient's lab results. Labs: Laboratory Tests Range/Units 06/15/24 06/15/24 06/15/24 18:09 19:26 20:52 WBC (4.4-10.8) 10^3/uL 7.88 RBC (3.93-5.22) 10^6/uL 4.69 Hgb (11.2-15.7) g/dL 13.5 Hct (36.0-46.0) % 39.8 MCV (80-95) fL 85 MCH (27.0-33.0) pg 28.8 MCHC (32.0-36.0) % 33.9 RDW (11.7-14.6) % 13.3 Plt Count (130-400) 10^3/uL 262 MPV (8.0-11.0) fL 10.0 Immature Gran % % 0.6 Neutrophils % % 51.4 Lymphocytes % % 34.5 Monocytes % % 9.4 Eosinophils % % 3.3 Basophils % % 0.8 Nucleated RBC % (0.0-0.3) % 0.0 Absolute Neutrophils (1.2-6.7) 10^3/uL 4.05 Absolute Lymphocytes (1.2-3.4) 10^3/uL 2.72 Absolute Monocytes (0.1-0.8) 10^3/uL 0.74 Absolute Eosinophils (0.0-0.7) 10^3/uL 0.26 Absolute Basophils (0.0-0.2) 10^3/uL 0.06 PT (9.1-11.1) sec 9.4 INR (0.9-1.1) 0.9 APTT (20.6-30.2) sec 21.3 D-Dimer (<500) ng/mlFEU 533 H Sodium (136-145) mmol/L 141 Potassium (3.5-5.1) mmol/L 3.9 Chloride (98-107) mmol/L 105 Carbon Dioxide (21.0-32.0) mmol/L 30.6 Anion Gap (3-11) mmol/L 5.4 BUN (7-18) mg/dL 21 H Creatinine (0.55-1.02) mg/dL 0.8 Est GFR (CKD-EPI 2020) (mL/min/1.73m2) 76.31 Glucose (74-106) mg/dL 85 Calcium (8.5-10.1) mg/dL 10.0 Magnesium (1.8-2.4) mg/dL 2.0 Total Bilirubin (0.2-1.0) mg/dL 0.30 AST (15-37) U/L 26 ALT (14-59) U/L 38 Alkaline Phosphatase (46-116) U/L 84 Troponin I (<or=51) ng/L 8 10 Cancelled NT-Pro-B Natriuret Pep (<300) pg/mL 80 Total Protein (6.4-8.2) g/dL 7.8 Albumin (3.4-5.0) g/dL 4.0 Lipase (<78) U/L 27 Quality:SDOH Health Related Social Needs: No Data to Display PFSH All Active Problems (Updated 06/15/24 @ 20:10 by Shari Saunders MD) Chest pain (Acute) Subclinical hypothyroidism (Acute 04/22/13) Medical History (Updated 06/15/24 @ 20:10 by Shari Saunders MD) Osteopenia Anxiety and depression Vertigo Aphasia Meningioma Melanoma in situ of face Hyperlipidemia Hypertension GERD (gastroesophageal reflux disease) fibroid uterus Subclinical hypothyroidism Fibrocystic disease of breast Surgical History (Updated 09/11/23 @ 14:21 by Cindy Orozco MD) H/O craniotomy 2019. Excision of meningioma Reduction mammoplasty 04/2005 Biopsy of breast L breast benign/fibrocystic changes [facility] 1990 Social History (Updated 09/11/23 @ 14:24 by Cindy Orozco MD) Smoking/Tobacco Use Status: Never Smoking risk assessment performed?: Yes Alcohol Intake: current Alcohol Intake frequency: a few times a week Alcohol type: wine and hard liquor Drug use: Never Household members: spouse and other Details: H- Rich since 2006. 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 Do you feel safe in your relationship?: Yes Female Reproductive History Menstrual Menopause type: natural PAWSS Have you Been Recently Intoxicated or Drunk Within the Last 30 days?: No Have you Ever Experienced Previous Episodes of Alcohol Withdrawal?: No Have you ever Experienced Withdrawal Seizures?: No Have you ever Experienced Delirium Tremens(DT)s?: No Have you ever undergone Alcohol Rehabilitation Treatment (i.e, inpt ot outpatient treatment programs)?: No Have you ever Experienced Blackouts?: No Have you ever Combined Alcohol with other Downers within the last 90 days?: No Have you ever Combined Alcohol with any other Substance of Abuse during the last 90 days?: No Positive Blood Alcohol level on Presentation? [PCS.BAL]: No Evidence of Increased Autonomic Activity (i.e. HR>120, tremor, sweating, agitation, nausea)?: No Result: 0
--- OUTSIDE RECORDS SUMMARY | 2024-06-15 18:30 | XMS_ITS | Encounter Summary ---
Author Organization [facility] [place] [address] Care Team Providers Care Showplace Manager Name Role Phone Tawanna Kelly APRN Primary Care Provider [phone] Encounter Details Date Type Department Care Team (Late st Contact Info) Description 02/26/2017 Orders [place] [address] Mani Sung MD Social History Tobacco Use [...] on filedocumented in this encounter Care Teams Showplace Manager Relationship Specialty Start Date End Date Tawanna Kelly APRN [address] [facility] [address] PCP - General Family Medicine 07/17/16 02/26/17 documented as of this encounter
--- OUTSIDE RECORDS SUMMARY | 2024-06-15 18:30 | XMS_ITS | Encounter Summary ---
Author Organization [facility] Address [facility] [place] [address] Care Team Providers Care Chief Engineer Production Name Role Phone Tawanna Kelly APRN Primary Care Provider [phone] Encounter Details Date Type Department Care Team (Late st Contact Info) Description 07/31/2016 Telephone Dermatology Mohs at [address] [address] Madai Jarquin Social History Tobacco [...] slow mohs procedure with Dr. Segovia in [place]. Pt has decided to have slow mohs done at [facility] due to travel reasons. I informed patient that I would let Dr. Segovia and Josiane know her decision. documented in this encounter Plan of Treatment Not on file documented as of this encounter Visit Diagnoses Not on filedocumented in this encounter Care Teams Chief Engineer Production Relationship Specialty Start Date End [place] [address] PCP - General Family Medicine 07/17/16 02/26/17 documented as of this encounter
--- OUTSIDE RECORDS SUMMARY | 2024-06-15 18:30 | XMS_ITS | Encounter Summary ---
Author Organization [facility] Address [facility] [place] [address] Care Team Providers Care Wheel Cleaner Name Role Phone Gayatri Claros APRN Primary Care Provider [phone] Reason for Visit * Auth/Cert Specialty Diagnoses / Procedures Referred By Haseeb messina Referred To Contact Diagnoses 10 yr surv from 04/17/04 Procedures PRO COLONOSCOPY, DIAGNOSTIC COLONOSCOPY, DIAGNOSTIC Referral ID Status Reason Start Date Expiration Date Visits Re quested Visits Authorized [id number] 1 1 Encounter Details Date Type Department Care Team (Late st Contact Info) Description 02/14/2015 1:30 PM EDT - 02/14/2015 2:30 PM EDT Surgery [place] [address] Kirsten Singleton MD [facility] [place] [address] COLONOSCOPY, DIAGNOSTIC (WRVU 3.26) Social History Tobacco [...] to be checked. Saturday-Saturday Same Day Endo [phone] [id number] Otherwise contact [phone] and ask to speak to the counter stitcher instrument and control technician Follow up care is a crespo part [...] * COLONOSCOPY (02/14/2015 12:45 PM EDT) COLONOSCOPY [facility] Endoscopy Patient Name: Em Dickerson ? Procedure Date: 02/14/2015 12:45 PM ? Date of : 1950 ? Age: 64 ? Order #: [id number] ? Procedure: ? Colonoscopy Indications: ? Screening for colorectal malignant ? neoplasm Providers: ? Kirsten Singleton MD, Lisa Lopez RN, ? Lisa Herrmann, Tile Presser Referring MD: ?Gayatri Claros MD Medicines: ? [...] 02/14/2015 12:4 5 PM EDT Gayatri Claros CORRECTIONAL THERAPY DIRECTOR GENERAL SURGICAL O RDERABLES PROVATION documented in [...] uncomfortavle) documented in this encounter Care Teams Wheel Cleaner Relationship Specialty Start Date End Date Gayatri Claros APRN PCP - General 12/28/14 07/01/16 documented as of this encounter
--- OUTSIDE RECORDS SUMMARY | 2024-06-15 18:30 | XMS_ITS | Encounter Summary ---
Author Organization [facility] Address [facility] [place] [address] Care Team Providers Care Table Cut Off Saw Operator Name Role Phone Crystal Howell APRN Primary Care Provider [phone] Encounter Details Date Type Department Care Team (Late st Contact Info) Description 04/02/2005 Orders Only Dermatology at [place] [address] [facility] [place] [address] Selvin Rivera MD [address] [facility] DERMATOLOGY [place], [place] [address] Social History Tobacco Use Types Packs/Day Years [...] (04/02/2005 5:45 PM EST) Surgical Pathology Report [id number] ? Location: The signing pathologist has (i) [...] on filedocumented in this encounter Care Teams Table Cut Off Saw Operator Relationship Specialty Start Date End Date Crystal Howell APRN [address] [place] [address] PCP - General Family Medicine 02/27/17 documented as of this encounter
--- OUTSIDE RECORDS SUMMARY | 2024-06-15 18:30 | XMS_ITS | Encounter Summary ---
Author Organization [facility] Address [facility] [place] [address] Care Team Providers Care Contact Lens Polisher Name Role Phone RobinTawanna SAJAN Primary Care Provider [phone] Reason for Visit * Reason Comments Brain Tumor MENINGIOMA... 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 Ambar Harrison APRN [address] [place] [address] Mani Sung MD [facility] [place] [address] Referral ID Status Reason Start Date Expiration Date V isits Requested Visits Authorized [id number] Consult, [facility] 01/29/2017 01/29/2018 1 1 Encounter Details Date Type Department Care Team (Late st Contact Info) Description 02/21/2017 9:30 AM EDT Office [place] [address] Mani Sung MD Meningioma Social History Tobacco [...] surgery. Late summer had an appointment with engineering programmer due to syncopal symptoms which was at [...] leg Remote, brief smoking history. Ultrasound at [facility]. PCP is Mariam Hernandez @ [facility]. Takes fish oil. PAST MEDICAL HISTORY Patient Active Problem List Diagnosis Code ??? 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 Claudication leg paresthesias I73.9 History reviewed. No pertinent past medical history. Past Surgical History: Procedure Laterality Date ??? PRO COLONOSCOPY, DIAGNOSTIC N/A 02/14/2015 COLONOSCOPY, DIAGNOSTIC performed by Kirsten Singleton MD at [facility] ENDOSCOPY ALLERGIES Allergies Allergen Reactions ??? Iodine And Iodide Containing Products Anaphylaxis ??? Penicillins Hives ??? Nitrofurantoin Other (See Comments) Stomach upset MEDICATIONS Current Outpatient Prescriptions: ??? HERBAL DRUGS ORAL, Take 2 tablets by mouth nightly as needed. [facility] , Disp: , Rfl: [...] I agree with them as documented. 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 As part of [...] night, and this was evaluated by her fish net maker who felt it was related to age-related changes in her eye. On exam, her neurological exam is unremarkable. We discussed her MRI from 02/16 which demonstrates an enhancing dural-based mass along the lateral sphenoid wing, as well as extensive edema along nearly her entire left temporal lobe. She had previously undergone neurosurgical evaluation at [facility] and at [facility] with Dr. Irby, and thus was well [...] interested in moving forward with surgery at [facility] and a consent for surgery was signed. Mani Sung MD Total visit time 60 minutes, of which 40 were spent counseling and coordinating care, including reviewing relevant imaging, lab results, and/or medical records. documented in this encounter Plan of Treatment Not on file documented as of this encounter Visit Diagnoses Diagnosis Meningioma Benign neoplasm of cerebral meninges documented in this encounter Care Teams Contact Lens Polisher Relationship Specialty Start Date End Date Tawanna Kelly APR[place] [place] [address] PCP - General Family Medicine 07/17/16 02/26/17 documented as of this encounter
--- OUTSIDE RECORDS SUMMARY | 2024-06-15 18:30 | XMS_ITS | Encounter Summary ---
Author Organization [facility] Address [facility] SHAYAN [place] [address] Care Team Providers Care Executive Account Manager Name Role Phone Tawanna Kelly APRN Primary Care Provider [phone] Encounter Details Date Type Department Care Team (Latest Contact Info) Description 01/15/2017 - 01/15/2017 11:59 PM EDT Hospital Encounter Radiology Library at [facility] SHAYAN [place]tt [address] Mani Sung MD Pain Discharge Disposition: Home [...] CT Spine (01/15/2017 12:00 AM EDT) Narrative RACHEL - 02/01/2017 10:05 AM EDT This exam is for storage only and is auto-finalizing. Mani Sung MD IMG FILM LIBRARY ORD ERABLES [place], [place] documented in this encounter Visit Diagnoses Diagnosis Pain Generalized pain documented in this encounter Care Teams Executive Account Manager Relationship Specialty Start Date End Date Tawanna Kelly APRN [facility] [place] [address] PCP - General Family Medicine 07/17/16 02/26/17 documented as of this encounter
--- OUTSIDE RECORDS SUMMARY | 2024-06-15 18:30 | XMS_ITS | Encounter Summary ---
Author Organization [facility] Address [facility] [place] [address] Care Team Providers Care Senior Clinical Study Manager Name Role Phone Tawanna Kelly APRN Primary Care Provider [phone] Reason for Visit * Reason Comments Skin Check * Consultation (Routine) - Specialty Diagnoses / Procedures Referred By Contiain t Referred To Contact Dermatology Diagnoses Melanocytic nevi, unspecified Facial mole with change Tawanna Kelly APRN [address] [place] [address] [facility] Dermatology [address] [place] [address] Referral ID Status Reason Start Date Expiration Date V isits Requested Visits Authorized [id number] 06/15/2016 06/15/2017 6 6 Encounter Details Date Type Department Care Team (Late st Contact Info) Description 07/17/2016 9:15 AM EDT Office Visit Dermatology at [facility] [address] [place] [address] Tal Cha MD Neoplasm of [...] or concerns, please call the office at [phone]. If it is after 5PM, or a holiday or weekend, please call [phone] and ask for the Professor Of Finance on-call. documented in this encounter Progress Notes [...] the presence of Dr. Cha: Sherley Guevara CMA I performed the above scribed service and agree with the accuracy of the documentation in this encounter. Tal Cha MD Section of Dermatology [facility] documented in this [...] Report (07/17/2016 10:14 AM EDT) Final Diagnosis [id number] ?Location: HDM The signing pathologist has (i) [...] Bisected. (T1) ??ejr 07/18/2016 1:55 PM EDT [facility] SPECIMEN FROM SKIN / Unknown 07/17/2016 10:14 AM EDT 07/17/2016 10:14 AM EDT Tal Cha MD PATHOLOGY/CYTOLOGY ORDERABLES Performing Organization Address [facility] Co de Phone Number [facility] [place] [address] * Specimen to Pathology (NON-OR) (07/17/2016 10:14 AM EDT) AP Specimen 07/17/2016 10:1 4 AM EDT 07/17/2016 1:05 PM EDT Narrative [facility] - 07/17/2016 1:05 PM EDT Specimen requisition ordered. ??Separate Pathology report to follow Resulting Agency Comment Spec In Lab Tal Cha MD PATHOLOGY/CYTOLOGY ORDERABLES [facility] [place] [address] documented in this encounter Visit Diagnoses Diagnosis Neoplasm of uncertain behavior of skin Skin exam, screening for cancer Screening for malignant neoplasm of the skin Multiple benign nevi Benign neoplasm of skin, site unspecified Caf?? au lait spot Other dyschromia documented in this encounter Care Teams Senior Clinical Study Manager Relationship Specialty Start Date End Date Tawanna Kelly APRN [address] [place] [address] PCP - General Family Medicine 07/17/16 02/26/17 documented as of this encounter
--- OUTSIDE RECORDS SUMMARY | 2024-06-15 18:30 | XMS_ITS | Encounter Summary ---
Author Organization [facility] Address [facility] [place] [address] Care Team Providers Care Architectural Drafter Name Role Phone Gayatri Claros APRN Primary Care Provider [phone] Reason for Visit * Auth/Cert Specialty Diagnoses / Procedures Referred By Haseeb messina Referred To Contact Diagnoses 10 yr surv from 04/17/04 Procedures PRO COLONOSCOPY, DIAGNOSTIC COLONOSCOPY, DIAGNOSTIC Referral ID Status Reason Start Date Expiration Date Visits Re quested Visits Authorized [id number] 1 1 Encounter Details Date Type Department Care Team (Latest Contact Info) Description 02/14/2015 12:23 PM EDT - 02/14/2015 3:10 PM EDT Hospital En[place] [address] Kirsten Singleton MD [facility] [place] [address] Discharge Disposition: Home Social History Tobacco Use [...] to be checked. Saturday-Saturday Same Day Endo [phone] Otherwise contact [phone] and ask to speak to the wardrobe stylist continuous improvement manager Follow up care is a crespo part [...] * COLONOSCOPY (02/14/2015 12:45 PM EDT) COLONOSCOPY [facility] Endoscopy Patient Name: Em Dickerson ? Procedure Date: 02/14/2015 12:45 PM ? Date of : 1950 ? Age: 64 ? Order #: [id number] ? Procedure: ? Colonoscopy Indications: ? Screening for colorectal malignant ? neoplasm Providers: ? Kirsten Singleton MD, Lisa Lopez, RN, ? Lisa Herrmann, Puddler [employer] Referring : ?Gayatri Claros MD Medicines: ? [...] uncomfortavle) documented in this encounter Care Teams Architectural Drafter Relationship Specialty Start Date End Date Gayatri Claros APRN PCP - General 12/28/14 07/01/16 documented as of this encounter
--- OUTSIDE RECORDS SUMMARY | 2024-06-15 18:30 | XMS_ITS | Encounter Summary ---
Author Organization [facility] Address [facility] [place] [address] Care Team Providers Care Sound Art Instructor Name Role Phone Tawanna Kelly APRN Primary Care Provider [phone] Encounter Details Date Type Department Care Team (Latest Contact Info) Description 02/16/2017 - 02/16/2017 11:59 PM EDT Hospital Encounter Radiology Library at [facility] [place] [address] Mani Sung MD Discharge Disposition: Home Social [...] MR Head (02/16/2017 12:00 AM EDT) Narrative RACHEL - 02/21/2017 9:21 AM EDT This exam is for storage only and is auto-finalizing. Mani Sung MD IMG FILM LIBRARY ORD ERABLES SHAYAN Guzman documented in this encounter Visit Diagnoses Not on filedocumented in this encounter Care Teams Sound Art Instructor Relationship Specialty Start Date End Date Tawanna Kelly APRN [facility] [place] [address] PCP - General Family Medicine 07/17/16 02/26/17 documented as of this encounter
--- OUTSIDE RECORDS SUMMARY | 2024-06-15 18:30 | XMS_ITS | Encounter Summary ---
Author Organization [facility] Address [facility] [place] [address] Care Team Providers Care Senior Data Analyst Name Role Phone Tank Vallejo APRN Primary Care Provider [phone] Encounter Details Date Type Department Care Team (Latest Contact Info) Description 09/17/2011 2:56 PM EDT - 09/17/2011 11:59 PM EDT Hospital [place] [id number] CLINIC, DR LASHAE Denson, Maco Lemos MD [address] [place], [place] [id number] Discharge Disposition: Home Social History Tobacco Use [...] 61 y.o. 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 BEFORE SCHEDULED SCAN AND HAVE A REMEDIATION BIOANALYTICS CONSULTANT AVAILABLE. PT STATED TO HOME DEMONSTRATOR THAT THE SEDATION WAS EFFECTIVE FOR SCAN: [...] changes most pronounced at L4-L5 asabove. Tank Vlalejo APRN IMG MRI ORDERABLES documented in this [...] mg documented in this encounter Care Teams Senior Data Analyst Relationship Specialty Start Date End Date Tank Vallejo APRN PCP - General 09/10/11 12/27/14 documented as of this encounter
--- OUTSIDE RECORDS SUMMARY | 2024-06-15 18:30 | XMS_ITS | Encounter Summary ---
Author Organization [facility] Address [facility] [place] [address] Care Team Providers Care Exhaust Worker Name Role Phone Tawanna Kelly APRN Primary Care Provider [phone] Encounter Details Date Type Department Care Team (Late st Contact Info) Description 08/02/2016 Telephone Dermatology at [facility] [address] [place] [address] Tal Cha MD Social History Tobacco Use [...] fax her path and office notes to [facility]. documented in this encounter Plan of Treatment Not on file documented as of this encounter Visit Diagnoses Not on filedocumented in this encounter Care Teams Exhaust Worker Relationship Specialty Start Date End Date Tawanna Kelly APRN [address] [facility] [id number] PCP - General Family Medicine 07/17/16 02/26/17 documented as of this encounter
--- OUTSIDE RECORDS SUMMARY | 2024-06-15 18:30 | XMS_ITS | Encounter Summary ---
Author Organization [facility] Address [facility] [address] Care Team Providers Care Plaster Machine Tender Name Role Phone Tank Lazaro APRN Primary Care Provider [phone] Reason for Referral * Physical Therapy (Routine) - Closed Specialty Diagnoses / Procedures Referred By Haseeb t Referred To Contact Physical Therapy Diagnoses Claudication Stenosis of lateral recess of lumbar spine [facility] [place] [address] [place] [address] [facility] [place] [address] Referral ID Status Reason Start Date Expiration Date V isits Requested Visits Authorized [id number] Closed Evaluate and Treat 09/21/2011 03/19/2012 12 12 Reason for Visit * Reason Comments Bilateral Leg Pain Groin And Leg Pain Encounter Details Date Type Department Care Team (Late st Contact Info) Description 09/21/2011 8:05 AM EDT Office [place] [address] Martinez Mancuso PA Claudication leg [...] as-needed basis. This dictation was performed using Snapciousaction. I have attempted to edit the note, [...] claudication documented in this encounter Care Teams Plaster Machine Tender Relationship Specialty Start Date End Date Tank Lazaro, SAJAN PCP - General 09/10/11 12/27/14 documented as of this encounter
--- OUTSIDE RECORDS SUMMARY | 2024-06-15 18:30 | XMS_ITS | Encounter Summary ---
Author Organization [facility] [place] [address] Care Team Providers Care Shot Fireman Name Role Phone Crystal Howell APRN Primary Care Provider [phone] Encounter Details Date Type Department Care Team (Late st Contact Info) Description 04/10/2005 [place] [address] Jose Baker MD Social History Tobacco Use [...] 1:11 PM EST) Surgical Pathology Report [id number] ? Location: The signing pathologist has (i) [...] in rendering the final pathologic diagnosis. SUNDAY LOPEZMYLA 04/10/2005 1:11 PM EST Jose Baker MD PATHOLOGY/CYTOLOGY O [facility] documented in this encounter Visit Diagnoses Not on filedocumented in this encounter Care Teams Shot Fireman Relationship Specialty Start Date End Date Crystal Howell APRN [address] [place] [address] PCP - General Family Medicine 02/27/17 documented as of this encounter
--- OUTSIDE RECORDS SUMMARY | 2024-06-15 18:30 | XMS_ITS | Encounter Summary ---
Author Organization [facility] Address One [facility] [place] [address] Care Team Providers Care Director Of Assessing Name Role Phone Tawanna Kelly APRN Primary Care Provider [phone] Encounter Details Date Type Department Care Team (Late st Contact Info) Description 07/31/2016 Telephone Dermatology at [facility] [address] [place] [address] Tal Cha MD Social History Tobacco Use [...] have MIS on r cheek done at [facility]. documented in this encounter Plan of Treatment Not on file documented as of this encounter Visit Diagnoses Not on filedocumented in this encounter Care Teams Director Of Assessing Relationship Specialty Start Date End Date Tawanna Kelly APRN [address] [facility] [id number] PCP - General Family Medicine 07/17/16 02/26/17 documented as of this encounter
--- OUTSIDE RECORDS SUMMARY | 2024-06-15 18:30 | XMS_ITS | Encounter Summary ---
Author Organization [facility] Address [address] [facility] [place] [address] Care Team Providers Care Perch Mender Name Role Phone Tawanna Kelly APRN Primary Care Provider [phone] Encounter Details Date Type Department Care Team (Late st Contact Info) Description 08/01/[address] [facility] [address] [place] [address] Tal Cha MD Social History [...] EDT Patient called requesting a referral to [facility] for her MOH's surgery. I told patient that I would ask Josiane to send a referral tomorrow when she returns to the office. Patient gave a fax number for [facility] as [phone]. documented in this encounter Plan of Treatment Not on file documented as of this encounter Visit Diagnoses Not on filedocumented in this encounter Care Teams Perch Mender Relationship Specialty Start Date End [place] [address] PCP - General Family Medicine 07/17/16 02/26/17 documented as of this encounter
--- OUTSIDE RECORDS SUMMARY | 2024-06-15 18:30 | XMS_ITS | Encounter Summary ---
Author Organization [facility] Address One [facility] [place] [address] Care Team Providers Care Supervisor Wool Shearing Name Role Phone Tank Lazaro APRN Primary Care Provider [phone] Encounter Details Date Type Department Care Team (Latest Contact Info) Description 09/21/2011 9:38 AM EDT - 09/21/2011 11:59 PM EDT Hospital Encounter XRay at [address] [place] [address] CLINIC, DR LASHAE Peter, Damir Roth MD [...] claudication documented in this encounter Care Teams Supervisor Wool Shearing Relationship Specialty Start Date End Date Tank Lazaro APRN PCP - General 09/10/11 12/27/14 documented as of this encounter
--- OUTSIDE RECORDS SUMMARY | 2024-06-15 18:30 | XMS_ITS | Encounter Summary ---
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 She exercises regularly by taking Pilates [...] claudication documented in this encounter Care Teams Pipe Layer Relationship Specialty Start Date End Date Tank Lazaro APRN PCP - General 09/10/11 12/27/14 documented as of this encounter
--- OUTSIDE RECORDS SUMMARY | 2024-06-15 18:30 | XMS_ITS | Encounter Summary ---
Author Organization [facility] Address [address] [facility] [place] [address] Care Team Providers Care Hog Stomach Preparer Name Role Phone Tawanna Kelly APRN Primary Care Provider [phone] Encounter Details Date Type Department Care Team (Late st Contact Info) Description 08/10/2016 Telephone Dermatology at [facility] [address] [place] [id number] Tal Cha MD Social History Tobacco Use [...] fax her pathology and office notes to [facility]Tommie Stacy MD FAX [phone] PHONE [phone]. I have done. documented in this encounter Plan of Treatment Not on file documented as of this encounter Visit Diagnoses Not on filedocumented in this encounter Care Teams Hog Stomach Preparer Relationship Specialty Start Date End Date Tawanna Kelly [place] [address] [place] [address] PCP - General Family Medicine 07/17/16 02/26/17 documented as of this encounter
[2024-06-15 18:34] LABS: INR 0.9 (0.9-1.1); PTT Activated 21.3 sec (20.6-30.2); Prothrombin Time 9.4 sec (9.1-11.1)
--- NOTE | 2024-06-15 18:34 | DI.RAD_ITS ---
Exam(s) XR CHEST 2V PA LATERAL EXAM: XR CHEST 2V PA LATERAL CLINICAL HISTORY: Chest pain TECHNIQUE: 2D digital imaging was performed. Two views. COMPARISON: No exams were available for comparison FINDINGS: HEART: Normal size. Aorta: Not dilated. PULMONARY VASCULATURE: Normal. MEDIASTINUM: Unremarkable. LUNGS: Minimal linear scarring, otherwise clear. PLEURAL SPACE: No pleural effusion or pneumothorax. BONE:Unremarkable for age. SOFT TISSUES: Surgical clips project in the left breast IMPRESSION: No acute abnormality. DATA REPOSITORY: RADIATION DOSE DELIVERED:
[2024-06-15 18:39] LABS: ALT 38 U/L (14-59); AST 26 U/L (15-37); Alkaline Phosphatase 84 U/L (46-116); Anion Gap 5.4 mmol/L (3-11); BUN 21 mg/dL (7-18); CO2 30.6 mmol/L (21.0-32.0); CREATININE 0.8 mg/dL (0.55-1.02); Chloride 105 mmol/L (98-107); Estimated GFR 76.31 (mL/min/1.73m2); Glucose 85 mg/dL (74-106); Lipase 27 U/L (<78); NT-proBNP 80 pg/mL (<300); Potassium 3.9 mmol/L (3.5-5.1); Sodium 141 mmol/L (136-145); Total Protein 7.8 g/dL (6.4-8.2); Troponin I 8 ng/L (<or=51)
[2024-06-15 18:46] LABS: D-Dimer 533 ng/mlFEU (<500)
[2024-06-15 19:52] LABS: Troponin I 10 ng/L (<or=51)
[2024-06-15 20:19] VITALS: BP 116/96; PULSE 68; RESP 16; TEMP 36.9; O2SAT 96
== END 2024-06-15 20:33 | disposition home or self-care (01) ==
PROVIDERS: Emergency Provider Student in an Organized Health Care Education/Training Program; PCP Family Medicine
DX: R07.9 Chest pain, unspecified (principal); I10 Essential (primary) hypertension; R11.11 Vomiting without nausea; E78.00 Pure hypercholesterolemia, unspecified
CPT/HCPCS: 36415; 80053; 83690; 93005; 99284; 71046; 83735; 83880; 84484; 85025; 85379; 85610; 85730; 93010; 99283

== ENCOUNTER 2024-06-22 01:01 | Outpatient (CLI) | payer MEDICARE, SELFPAY ==
--- NOTE | 2024-06-22 | ETT_ITS ---
APPROVED REPORT Exam: Exercise Treadmill Patient Location: Out-Patient Room/Bed: Stress Nurse: Emre Quezada RN Ordering Provider:LILLIAM BADILLO, Contact Number: [phone] BMI: 28.31 Baseline Rhythm: Sinus Rhythm. Indications: Chest Pain. Medical History Medical History: HLD; HTN; Subclinical Hypothyroidism; Anxiety; Depression; GERD; Vertigo. Cardiac Medications: Amlodipine; Levothyroxine; Magnesium; Rosuvastatin. Pt. states that she hasn't s tarted taking the amlodipine or the rosuvastatin yet. Allergies: Contrast Dye; Nitrofurantin; Penicillins. Cardiac Risk Factors: Family Hx; HLD; HTN. Previous Cardiac Procedures: None. Pretest Chest Pain Characteristics: None. Exercise History: Indeterminate. Physical Disabilities: None. Lung Sounds: Clear bilaterally throughout, anterior and posterior. Heart Sounds: S1 and S2 auscultated. Stress Test Details Test: Exercise stress testing was performed using a Alex protocol. Rest Stress HR Resting HR Supine: 68 bpm Max Heart Rate (APMHR): 144 bpm Resting HR Standin bpm Target HR (85% APMHR): 122 bpm Max HR Achieved: 97 bpm % of APMHR: 67 Recovery HR: 75 bpm HR response to stress: Normal HR response to stress. BP Resting BP Supine: 162/80 mmHg Resting BP Standin/78 mmHg Max BP: 178/88 mmHg Recovery BP: 178/88 mmHg BP response to stress: Normal blood pressure response to stress. ECG Resting ECG: Sinus Rhythm. Ectopy: None. Stress ECG: Sinus Rhythm. ST Change: No significant ST segment changes noted; Nondiagnostic low heart rate. Arrhythmia: None. Recovery ECG: Sinus Rhythm. Recovery ST Change: No significant ST segment changes noted; Nondiagnostic low heart rate. Recovery Arrhythmia: None. Clinical Reason for Termination: Dizziness/Vertigo. Stress Symptoms: Dizziness/Vertigo. Exercise duration: 00 min08 sec Highest Stage Reached: Stage 1: 1.7 mph at 10% grade. Exercise capacity: 1.00 METs Angina Score: None Rate Pressure Product: 18583 Stress ECG Conclusion 1. Resting electrocardiogram showed left anterior fascicular block and late transition 2. Patient was only able to walk on the treadmill for 8 seconds, stopping due to dizziness/vertigo 3. Peak heart rate achieved was 67% of maximal predicted for age 4. Suggest repeat with pharmacologic stress if clinically indicated Stress Test Summary STAGE Time (mins) Speed (mph) Grade (%) HR BP SpO2 SYMPTOMS METS Supine 68 162/80 96 Pt. was asymptomatic. Standing 87 160/78 96 Pt. was asymptomatic. 1 3 1.7 10 97 96 Pt. started walking on the treadmill and before the treadmill had even reac hed the initial speed and elevation, pt. complained of dizziness and vertigo and requested that [facility] staff stop the treadmill. 4.5 1 min recovery 75 178/88 96 Pt. was back to her baseline symptoms (per pt.) upon leaving [facility] Stress Lab. Prior to starting the stress test, pt. was asymptomatic and denied any dizziness or vertigo. Pt. cont inued to remain asymptomatic upon moving from lying to sitting, sitting to standing, and standing to ambulating over to the treadmill. Upon starting the stress test, pt. started walking on the treadmill and before the treadmill had even reached the initial speed and elevation, pt. complained of dizzine ss and vertigo and requested that nursing staff stop the treadmill. Pt. stated that she has been expe riencing this dizziness and vertigo and that it is something that she and her PCP are working on dete rming a cause for. Pt. states that she usually feels this way in the mornings, especially with sudden changes in movement, such as starting to walk on a treadmill. Pt. ambulated from the treadmill to [facility] stretcher and sat down with assistance from an RN. Pt.'s BP was obtained. Pt. was back to her basel ine symptoms (per pt.'s description) and stated that she ...felt fine now by the end of the recover y period. Pt. stated that someone had driven her here and that someone would by driving her home. [facility] staff encouraged the pt. to call her PCP to discuss next steps, including the possibility of hav ing a nuclear medicine stress test. Pt. verbalized understanding and stated that she would do so. Pt. was conversing pleasantly with nursing staff upon leaving the Stress Lab and left ambulatory in no a pparent distress.
== END 2024-06-22 01:21 ==
LOC: DI 01:01
PROVIDERS: PCP Family Medicine; Visit Provider Internal Medicine Cardiovascular Disease
DX: R07.9 Chest pain, unspecified (principal)
CPT/HCPCS: 93016; 93018; 93017

== ENCOUNTER 2024-11-18 14:10 | Outpatient (REF) | payer MEDICARE, SELFPAY | END 2024-11-18 14:11 | disposition home or self-care (01) | LOC: LBN 14:10 | PROVIDERS: PCP Family Medicine; Visit Provider Nurse Practitioner Family | DX: N30.01 Acute cystitis with hematuria (principal) | CPT/HCPCS: 87077; 87086; 87186 ==

== ENCOUNTER 2025-04-17 15:47 | Outpatient (REF) | payer MEDICARE, SELFPAY | END 2025-04-17 15:48 | disposition home or self-care (01) | LOC: LBN 15:47 | PROVIDERS: PCP Family Medicine; Visit Provider Nurse Practitioner Family | DX: N30.00 Acute cystitis without hematuria (principal) | CPT/HCPCS: 87077; 87086; 87186 ==